=== PATIENT | female | born 1975 | race Caucasian/White ===

== ENCOUNTER 2019-12-06 11:22 | Outpatient (REF) | payer MEDICAID, SELFPAY | END 2019-12-06 11:23 | disposition home or self-care (01) | LOC: HO.LAB 11:22 | PROVIDERS: Visit Provider Internal Medicine | DX: Z20.828 Contact with and (suspected) exposure to other viral communicable diseases (principal) | CPT/HCPCS: U0003 ==

== ENCOUNTER 2019-12-17 13:25 | Outpatient (REF) | payer MEDICAID, SELFPAY | END 2019-12-17 13:26 | disposition home or self-care (01) | LOC: HO.LAB 13:25 | PROVIDERS: PCP Internal Medicine; Visit Provider Internal Medicine | DX: Z20.828 Contact with and (suspected) exposure to other viral communicable diseases (principal) | CPT/HCPCS: C9803; U0003 ==

== ENCOUNTER 2020-05-31 10:58 | Emergency (ER) | payer MEDICAID, SELFPAY ==
--- NOTE | ~2020-05-31 | US_ITS ---
EXAMINATION: RIGHT LOWER QUADRANT ULTRASOUND FOR APPENDIX CLINICAL INFORMATION: Cannot rule out appendicitis on CT scan earlier today. COMPARISON: CT of same day TECHNIQUE: Compression ultrasound study right lower quadrant FINDINGS: Targeted compression ultrasound of the right lower quadrant was performed. There is a large amount of overlying bowel present. The appendix was not identified. No definite blind ending noncompressible tubular structure was seen. There is small amount of free fluid seen adjacent to the right iliac vessels. US/US appendix IMPRESSION: Appendix not identified with large amount of bowel being present overlying this region. Small amount of free fluid seen adjacent to the iliac vessels and appendicitis still is not excluded.
--- NOTE | ~2020-05-31 | CT_ITS ---
EXAMINATION: CT ABDOMEN AND PELVIS WITHOUT CONTRAST CLINICAL INFORMATION: Flank pain. Question kidney stones. COMPARISON: September 02, 2007 TECHNIQUE: Multidetector volumetric imaging was performed from the superior aspect of the liver through the pubic symphysis. Sagittal and coronal reformatted images were obtained on the technologist's workstation. This CT examination was performed using dose optimization techniques as appropriate, variously including the following: *Automated exposure control *Adjustment of mA and/or kV according to patient size (this includes techniques or standardized protocols for targeted exams where dose is matched to indication/reason for exam; i.e. extremities or head) *Use of iterative reconstruction technique DLP: 401 mGy-cm FINDINGS: LUNG BASES: The visualized lung bases are unremarkable. No pleural or pericardial effusion. LIVER, GALLBLADDER, AND BILIARY TREE: The liver is normal in size, shape, and attenuation. No focal hepatic lesion or biliary ductal dilatation is present. Status post cholecystectomy. PANCREAS: Unremarkable. SPLEEN: Unremarkable. ADRENAL GLANDS: Unremarkable. KIDNEYS AND URETERS: The kidneys are normal in size, shape, and attenuation. No hydronephrosis, hydroureter, or calculi seen. No perinephric stranding. BLADDER: Unremarkable. GASTROINTESTINAL TRACT: No dilated loops of large or small bowel are evident. No free air. Minimal small amount of free pelvic fluid. No evidence of acute diverticulitis. No significant pericolonic inflammatory fat stranding is seen to suggest colitis. The distal aspect of the appendix is not visualized. And there is a small amount of fluid in the right lower quadrant tracking adjacent to the location of the appendix and right adnexa. There is a lack of intra-abdominal fat making differentiation of structures from one another difficult. ABDOMINAL WALL: No significant hernia is appreciated. LYMPH NODES: No lymphadenopathy appreciated. VASCULAR: Unremarkable. PELVIC VISCERA: Small amount of free fluid. No definite suspicious mass. OSSEOUS STRUCTURES: No suspicious destructive bony lesion identified. Single locule of gas is seen adjacent to the left facet joint at the L5-S1 level likely degenerative in nature. CT/CT abdomen pelvis wo con IMPRESSION: No evidence of obstructive uropathy. Distal aspect of the appendix is not visualized and it lies adjacent to the uterus and adnexal region where there is a small amount of fluid present. Acute appendicitis is not excluded versus possible adnexal fluid. Pelvic ultrasound may be of help in further evaluation.
--- NOTE | ~2020-05-31 | US_ITS ---
EXAMINATION: US PELVIS TRANSVAGINAL CLINICAL INFORMATION: Question Ovarian cyst rupture/torsion versus acute appendicitis COMPARISON: CT earlier today TECHNIQUE: Transcutaneous and transvaginal pelvic ultrasound. Transvaginal scanning was performed after voiding to better evaluate the endometrium and adnexa. FINDINGS: The uterus measures 7.7 x 5.0 x 5.4 cm. The uterus is anteverted. No suspicious abnormalities region of the cervix. The uterine contour is smooth. The endometrium measures 0.9 cm. No focal abnormalities within the myometrium. The right ovary measures approximately 2.4 x 1.2 x 1.1 cm. The calculated right ovarian volume is approximately 1.7 mL. No suspicious adnexal masses identified. There are a few tiny echogenic foci consistent with calcifications. There is free fluid seen surrounding the right ovary/adnexa. There is normal arterial and venous blood flow present. The left ovary measures 2.8 x 1.5 x 1.2 cm. The calculated left ovarian volume is approximately 2.6 mL. No suspicious left adnexal mass. There is normal arterial venous blood flow present. There is some small amount of free fluid seen surrounding the left ovary/adnexa. US/US transvaginal IMPRESSION: No evidence of ovarian torsion. No ovarian mass identified. Free fluid seen surrounding both ovaries/adnexa.
--- NOTE | ~2020-05-31 | US_ITS ---
EXAMINATION: US PELVIS TRANSVAGINAL CLINICAL INFORMATION: Question Ovarian cyst rupture/torsion versus acute appendicitis COMPARISON: CT earlier today TECHNIQUE: Transcutaneous and transvaginal pelvic ultrasound. Transvaginal scanning was performed after voiding to better evaluate the endometrium and adnexa. FINDINGS: The uterus measures 7.7 x 5.0 x 5.4 cm. The uterus is anteverted. No suspicious abnormalities region of the cervix. The uterine contour is smooth. The endometrium measures 0.9 cm. No focal abnormalities within the myometrium. The right ovary measures approximately 2.4 x 1.2 x 1.1 cm. The calculated right ovarian volume is approximately 1.7 mL. No suspicious adnexal masses identified. There are a few tiny echogenic foci consistent with calcifications. There is free fluid seen surrounding the right ovary/adnexa. There is normal arterial and venous blood flow present. The left ovary measures 2.8 x 1.5 x 1.2 cm. The calculated left ovarian volume is approximately 2.6 mL. No suspicious left adnexal mass. There is normal arterial venous blood flow present. There is some small amount of free fluid seen surrounding the left ovary/adnexa. US/US pelvic ovarian doppler IMPRESSION: No evidence of ovarian torsion. No ovarian mass identified. Free fluid seen surrounding both ovaries/adnexa.
--- NOTE | ~2020-05-31 | US_ITS ---
EXAMINATION: US PELVIS TRANSVAGINAL CLINICAL INFORMATION: Question Ovarian cyst rupture/torsion versus acute appendicitis COMPARISON: CT earlier today TECHNIQUE: Transcutaneous and transvaginal pelvic ultrasound. Transvaginal scanning was performed after voiding to better evaluate the endometrium and adnexa. FINDINGS: The uterus measures 7.7 x 5.0 x 5.4 cm. The uterus is anteverted. No suspicious abnormalities region of the cervix. The uterine contour is smooth. The endometrium measures 0.9 cm. No focal abnormalities within the myometrium. The right ovary measures approximately 2.4 x 1.2 x 1.1 cm. The calculated right ovarian volume is approximately 1.7 mL. No suspicious adnexal masses identified. There are a few tiny echogenic foci consistent with calcifications. There is free fluid seen surrounding the right ovary/adnexa. There is normal arterial and venous blood flow present. The left ovary measures 2.8 x 1.5 x 1.2 cm. The calculated left ovarian volume is approximately 2.6 mL. No suspicious left adnexal mass. There is normal arterial venous blood flow present. There is some small amount of free fluid seen surrounding the left ovary/adnexa. US/US pelvic complete IMPRESSION: No evidence of ovarian torsion. No ovarian mass identified. Free fluid seen surrounding both ovaries/adnexa.
[2020-05-31 11:08] VITALS: BP 136/78; PULSE 78; RESP 18; TEMP 36.8; O2SAT 98; BMI 22.3
--- NOTE | 2020-05-31 11:34 | ED_ITS ---
HPI - Female Genitourinary General Chief complaint: Urogenital-Female Stated complaint: kidney infection Time Seen by Provider: 05/31/20 12:04 Source: patient Mode of arrival: ambulatory Limitations: no limitations History of Present Illness HPI Narrative: Patient presents to ED suprapubic pain, and dysuria . . Patient denies any nausea, vomiting, vaginal bleeding, or severe abdominal pain. Patient states she no longer having her menstruation. 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 Patient is currently going to treatment for cervical cancer. Patient received radiation and chemo. MD elicited complaint: dysuria and UTI Related Data Previous Rx's Medication Instructions Recorded cefpodoxime 100 mg PO Q12H 7 Days #14 tab 05/31/20 naproxen 500 mg PO BID PRN #20 tab 05/31/20 Allergies Allergy/AdvReac Type Severity Reaction Status Date / Time guaifenesin [GUAIFENESIN] Allergy Intermediate HIVES Unverified 10/24/19 15:04 metaproterenol [From Alupent] Allergy Mild PALPITATIONS, Unverified 10/24/19 15:04 RASH N.K.D.A. Allergy Unknown Uncoded 01/02/19 00:00 Review of Systems Review of Systems: Yes all other systems are reviewed and are negative Constitutional: Constitutional: Reports as per HPI, Reports no additional constitutional complaints and Denies fever(s) Eyes: Eyes: Reports as per HPI and Reports no additional eye complaints ENT: Reports system reviewed and no additional complaints, except as documented and Reports as per HPI Cardiovascular: Cardiovascular: Reports as per HPI and Reports no additional cardiovascular complaints Respiratory: Respiratory: Reports as per HPI and Reports no additional respiratory complaints Gastrointestinal: Gastrointestinal: Reports as per HPI, Reports no additional gastrointestinal complaints and Reports abdominal pain (Suprapubic) Genitourinary: Genitourinary: Reports no additional female genitourinary complaints, Reports as per HPI, Reports difficulty voiding and Reports dysuria Musculoskeletal: Musculoskeletal: Reports no additional musculoskeletal complaints and Reports as per HPI Neurologic: Reports system reviewed and no additional complaints, except as documented and Reports as per HPI Psychiatric: Psychiatric: Reports no additional psychiatric complaints and Reports as per HPI PMFSH Past Medical History Medical History (Updated 05/31/20 @ 17:21 by HOOD Yoder) Cervical cancer Cholecystectomy planned Radiation cystitis Surgical History (Updated 05/31/20 @ 11:10 by Mary Butts) Tubal ligation status Social History Social History Smoking Status: Light tobacco smoker Use of substances other than those prescribed or required for medical reasons: No Advance Directives: No Advance Directives Information Provided: No Physical Exam Vital Signs: Vital Signs: Last Vital Signs Temp 98.3 F 05/31/20 11:08 Pulse 75 05/31/20 14:16 Resp 16 05/31/20 14:16 BP 134/80 05/31/20 14:16 Pulse Ox 100 05/31/20 14:16 Body Mass Index 22.3 Const: General: cooperative, healthy appearing, comfortable, no acute distress, well developed, alert, awake and Physically active Orientation/consciousness: patient oriented x3 HENMT: Head: Yes normal to inspection, Yes No palpable skull fracture present, Yes normocephalic and Yes atraumatic Eyes: General: appearance normal, both eyes and all related structures Neck: Neck: Yes normal visual inspection, Yes full ROM, Yes no lymphadenopathy, Yes no meningeal signs, Yes trachea midline, Yes supple and No tender Chest: Chest palpation & inspection: normal inspection of the chest and normal palpation of entire chest wall Resp: Effort & Inspection: normal respiratory effort and able to speak in complete sentences Auscultation: clear to auscultation bilaterally Cardio: Jugular venous distension: no JVD Heart sounds: S1 normal heart sound present and S2 normal heart sound present GI: Inspection: Yes normal to inspection and No abdominal wall ecchymosis Palpation (GI): Soft to palpation, not firm, Tenderness to palpation present (GI) suprapubicly; not in the epigastrum, not in the LLQ, not in the RLQ, not in the LUQ, not in the RUQ, not at McBurney's point, not periumbilically, Angela's sign negative, obturator sign negative, psoas sign negative, with no rebound tenderness and Rovsing's sign negative, no guarding and not rigid : General: No CVA tenderness Back/Spine/Pelvis: Back: no CVA tenderness, No CVA tenderness and No back tenderness Skin: General skin exam: no rashes or lesions noted and elasticity normal Neuro: General: patient oriented x3, gait normal, no meningeal signs and CN's II-XI intact bilaterally Cranial nerves: Yes CN's II-XII intact bilaterally Extrem: General: Yes normal to inspection and Yes full ROM Psych: Appearance: grossly normal, well kempt and not disheveled Course Course Course Narrative: Patient vital signs stable. But due to patient's history of cancer will do labs fluids and was sent for UA. Reevaluation(s) Reevaluation #1: Patient given Toradol morphine for pain. CT scan showed fluid in the adnexa, but said not able to exclude appendicitis and stated appendix not visualized. Recommended pelvic ultrasound. Reevaluation #2: Pelvic ultrasound came back which showed bilateral pelvic free fluid, but negative for any adnexal mass/cyst. Patient states she had similar presentation in February with radioactive cystitis where urine was negative for bacteria, only had blood, but then the urine grew back strain culture requires antibiotics. Appendix ultrasound states appendix not visualized. Patient was re-evaluated and abdominal exam negative for any right lower quadrant tenderness, rebound tenderness, McBurney sign, Rovsing sign, obturator sign, or psoas sign. Patient has slight tenderness in right suprapubic area and complained of dysuria/pressure when urinating. Unlikely patient having appendicitis. Pelvic exam was offered to rule out PID/STI, but patient refused and prefer follow-up with her PCP. Patient states she had similiar presentations in the past ( including this past february at [facility]) where her UA was negative for obvious UTI, but UA culture grew bacteria that required antibiotics. patient states history of radiation cysystitis and proctotits. Spoke with supervising attendant Dr. Brown and he was inforemd of history, physical exam and diagnostics and recommended to treat patient as UTI and give antibiotics. He also recommend given patient appendicits instructions. Patient explained appendicitis symptoms/and given instructions concerning appendicitis. Patient given copy of labs and imaging to follow up with her PCP tomorrow. Patient is hemodynamically stable. MDM - Female Genitourinary MDM Narrative Medical decision making narrative: UTI. Pelvic pain Lab Data Result diagrams: 05/31/20 12:05/31/20 12:01 Labs: Lab Results 05/31/20 05/31/20 05/31/20 Range/Units 12:01 12:01 12:01 WBC 4.3 L (4.8-10.8) X10*3/uL RBC 3.53 L (4.20-5.50) X10*6/uL Hgb 11.4 L (12.0-16.0) g/dl Hct 34.3 L (37-47) % MCV 97.2 (80-98) fL MCH 32.3 (27.0-33.0) pg MCHC 33.2 (31.0-35.0) g/dl RDW 14.6 (11.0-16.0) % Plt Count 201 (160-400) X10*3/uL MPV 8.9 L (9.4-12.3) fL Immature Gran % (Auto) 0.2 (0.0-0.4) % Neut % (Auto) 71.2 (45-73) % Lymph % (Auto) 15.7 L (20-40) % Harper % (Auto) 11.3 H (2-11) % Eos % (Auto) 1.4 (0-4) % Baso % (Auto) 0.2 (0-2) % Lymph # (Auto) 0.7 L (1.2-4.9) X10*3/uL Harper # (Auto) 0.5 (0.1-1.2) X10*3/uL Eos # (Auto) 0.1 (0.0-0.4) X10*3/uL Baso # (Auto) 0.0 (0.0-0.2) X10*3/uL Abs Immat Gran (auto) 0.01 (0.00-0.03) X10*3/uL Absolute Neuts (auto) 3.0 (2.0-8.3) X10*3/uL Absolute Nucleated RBC 0.000 (0.0-0.012) X10*3/uL Nucleated RBC % (auto) 0.0 (0.0-0.2) /100WBC Smear Tech's Comments VERIFIED PT 11.8 (10.8-13.0) SEC INR 1.0 (0.9-1.1) APTT 31.8 (24.1-38.0) SEC Sodium 140 (135-145) mmol/L Potassium 3.9 (3.3-5.1) mmol/L Chloride 107 (96-108) mmol/L Carbon Dioxide 24 (22-29) mmol/L Anion Gap 13 (12-20) BUN 7 L (9-16) mg/dL Creatinine 0.68 (0.5-1.4) mg/dL Estim Creat Clear Calc 85.5 Estimated GFR > 60 Random Glucose 105 (60-115) mg/dL Calcium 8.4 (8.4-10.2) mg/dL Total Bilirubin < 0.2 (0.0-1.0) mg/dL AST 11 (5-31) U/L ALT < 6 (0-31) U/L Alkaline Phosphatase 49 (39-117) U/L Total Protein 6.3 L (6.5-8.0) g/dL Albumin 3.6 (3.5-5.0) g/dL Urine Color Urine Appearance Urine pH (5.0-8.0) Ur Specific Huntly (1.005-1.025) Urine Protein (NEG-TRACE) MG/DL Urine Glucose (UA) (NEG) MG/DL Urine Ketones (NEG) MG/DL Urine Blood (NEG) Urine Nitrite (NEG) Ur Leukocyte Esterase (NEG) Urine RBC (0) /HPF Urine WBC (0-4) /HPF Ur Squamous Epith Cells /LPF Urine Bacteria /LPF Urine Mucus /LPF Urine Test (NEGATIVE) 05/31/20 05/31/20 Range/Units 12:01 12:01 WBC (4.8-10.8) X10*3/uL RBC (4.20-5.50) X10*6/uL Hgb (12.0-16.0) g/dl Hct (37-47) % MCV (80-98) fL MCH (27.0-33.0) pg MCHC (31.0-35.0) g/dl RDW (11.0-16.0) % Plt Count (160-400) X10*3/uL MPV (9.4-12.3) fL Immature Gran % (Auto) (0.0-0.4) % Neut % (Auto) (45-73) % Lymph % (Auto) (20-40) % Harper % (Auto) (2-11) % Eos % (Auto) (0-4) % Baso % (Auto) (0-2) % Lymph # (Auto) (1.2-4.9) X10*3/uL Harper # (Auto) (0.1-1.2) X10*3/uL Eos # (Auto) (0.0-0.4) X10*3/uL Baso # (Auto) (0.0-0.2) X10*3/uL Abs Immat Gran (auto) (0.00-0.03) X10*3/uL Absolute Neuts (auto) (2.0-8.3) X10*3/uL Absolute Nucleated RBC (0.0-0.012) X10*3/uL Nucleated RBC % (auto) (0.0-0.2) /100WBC Smear Tech's Comments PT (10.8-13.0) SEC INR (0.9-1.1) APTT (24.1-38.0) SEC Sodium (135-145) mmol/L Potassium (3.3-5.1) mmol/L Chloride (96-108) mmol/L Carbon Dioxide (22-29) mmol/L Anion Gap (12-20) BUN (9-16) mg/dL Creatinine (0.5-1.4) mg/dL Estim Creat Clear Calc Estimated GFR Random Glucose (60-115) mg/dL Calcium (8.4-10.2) mg/dL Total Bilirubin (0.0-1.0) mg/dL AST (5-31) U/L ALT (0-31) U/L Alkaline Phosphatase (39-117) U/L Total Protein (6.5-8.0) g/dL Albumin (3.5-5.0) g/dL Urine Color YELLOW Urine Appearance HAZY Urine pH 5.5 (5.0-8.0) Ur Specific Huntly >= 1.030 H (1.005-1.025) Urine Protein TRACE (NEG-TRACE) MG/DL Urine Glucose (UA) NEG (NEG) MG/DL Urine Ketones NEG (NEG) MG/DL Urine Blood 2+ H (NEG) Urine Nitrite NEG (NEG) Ur Leukocyte Esterase NEG (NEG) Urine RBC 5-9 H (0) /HPF Urine WBC 1-4 (0-4) /HPF Ur Squamous Epith Cells 1+ /LPF Urine Bacteria NONE /LPF Urine Mucus TRACE /LPF Urine Test NEGATIVE (NEGATIVE) Discharge Plan Discharge Clinical Impression: Urinary tract infection, Pelvic pain Patient Disposition: Home, Self-Care Instructions: Urinary Tract Infection in Women (ED), Pelvic Pain (ED) Additional Instructions: Return to the ED for any gross blood in the urine, flank pain, fever, chills, nausea, vomiting, decreased appetite, right lower quadrant pain, umbilical pain, weakness, dizziness, left lower quadrant abdominal pain radiating to the right side, or any other concerning symptoms. Prescriptions: New cefpodoxime 100 mg tablet 100 mg PO Q12H 7 Days Qty: 14 RF: 0 naproxen 500 mg tablet 500 mg PO BID PRN (Reason: pain) Qty: 20 RF: 0 Referrals: Edmundo Burnham MD [Primary Care Provider] - 2 days (UTI. Pelvic pain) Print Language: Australian
[2020-05-31] MEDS: 0.9 % Sodium Chloride 1,000 ML 999 ML IV (12:02)
[2020-05-31 12:08] LABS: Basophils Percent Auto 0.2 % (0-2); Eosinophils Absolute Auto 0.1 X10*3/uL (0.0-0.4); Eosinophils Percent Auto 1.4 % (0-4); Hematocrit 34.3 % (37-47); Hemoglobin 11.4 g/dl (12.0-16.0); Imm Gran Abs Auto 0.01 X10*3/uL (0.00-0.03); Imm Gran Pct Auto 0.2 % (0.0-0.4); Lymphocytes Absolute Auto 0.7 X10*3/uL (1.2-4.9); Lymphocytes Percent Auto 15.7 % (20-40); MANUAL DIFF FLAG SCAN; Mean Corpuscular HGB Conc 33.2 g/dl (31.0-35.0); Mean Corpuscular Hemoglobin 32.3 pg (27.0-33.0); Mean Corpuscular Volume 97.2 fL (80-98); Mean Platelet Volume 8.9 fL (9.4-12.3); Monocytes Absolute Auto 0.5 X10*3/uL (0.1-1.2); Monocytes Percent Auto 11.3 % (2-11); Neutrophils Percent Auto 71.2 % (45-73); Platelet Count 201 X10*3/uL (160-400); Red Blood Count 3.53 X10*6/uL (4.20-5.50); Red Cell Distribution Width 14.6 % (11.0-16.0); SCAN SMEAR FLAG 1; White Blood Count 4.3 X10*3/uL (4.8-10.8)
[2020-05-31 12:09] LABS: Glucose Urine UA NEG (NEG); Leukocyte Esterase Urine NEG (NEG); Nitrite Urine NEG (NEG); PH 5.5 (5.0-8.0); Specific Gravity - Urine >= 1.030 (1.005-1.025); Urine Blood 2+ (NEG); Urine Ketones NEG (NEG); Urine Protein TRACE MG/DL (NEG-TRACE)
[2020-05-31 12:10] LABS: Appearance Urine HAZY; Color Urine YELLOW
[2020-05-31 12:11] LABS: UPreg QC Valid YES; Urine Pregnancy NEGATIVE (NEGATIVE)
[2020-05-31 12:16] LABS: Prothrombin Time 11.8 SEC (10.8-13.0)
[2020-05-31 12:18] LABS: Partial Thromboplastin Time 31.8 SEC (24.1-38.0)
[2020-05-31] MEDS: Ketorolac Tromethamine 30 MG/ML VIAL IVPUSH (12:23)
[2020-05-31 12:25] LABS: Mucus Urine TRACE /LPF; Squamous Epithelial Cell Urine 1+ /LPF
[2020-05-31 12:36] LABS: Alanine Aminotransferase < 6 U/L (0-31); Albumin Level 3.6 g/dL (3.5-5.0); Alkaline Phosphatase 49 U/L (39-117); Anion Gap 13 (12-20); Aspartate Amino Transferase 11 U/L (5-31); Bilirubin Total < 0.2 mg/dL (0.0-1.0); Blood Urea Nitrogen 7 mg/dL (9-16); Calcium 8.4 mg/dL (8.4-10.2); Carbon Dioxide 24 mmol/L (22-29); Chloride 107 mmol/L (96-108); Creatinine Clr Calc Pharmacy 85.5; Estimated Glomerular Filt Rate > 60; Glucose Random 105 mg/dL (60-115); Potassium 3.9 mmol/L (3.3-5.1); Sodium 140 mmol/L (135-145); Total Protein 6.3 g/dL (6.5-8.0)
[2020-05-31 12:47] LABS: SLIDE REVIEW VERIFIED
--- NOTE | 2020-05-31 12:55 | PC.NURSE ---
PT TO CT SCAN. MEDICATED FOR PAIN WITH TORADOL.
[2020-05-31 14:16] VITALS: BP 134/80; PULSE 75; RESP 16; O2SAT 100
[2020-05-31] MEDS: Morphine Sulfate 2 MG/ML CARTRIDGE IVPUSH (14:50)
== END 2020-05-31 18:30 | disposition home or self-care (01) ==
PROVIDERS: Physician Assistant; Emergency Provider Emergency Medicine Emergency Medical Services; PCP Internal Medicine
DX: N39.0 Urinary tract infection, site not specified (principal); R10.2 Pelvic and perineal pain; Z85.41 Personal history of malignant neoplasm of cervix uteri; F17.210 Nicotine dependence, cigarettes, uncomplicated
CPT/HCPCS: 36415; 74176; 76705; 76830; 76856; 80053; 81001; 81025; 85025; 85610; 85730; 93975; 96361; 96374; 96375; 99284; J1885; J2270

== ENCOUNTER 2020-06-25 11:21 | Outpatient (REF) | payer MEDICAID, SELFPAY ==
[2020-06-25 11:42] LABS: COVID-19 Test Negative (Negative); IDNOW Serial# 55D5AD1C
== END 2020-06-25 11:22 | disposition home or self-care (01) ==
LOC: HO.LAB 11:21
PROVIDERS: Visit Provider Internal Medicine
DX: Z20.822 Contact with and (suspected) exposure to COVID-19 (principal)
CPT/HCPCS: 36415; 87635; C9803

== ENCOUNTER 2020-09-09 09:33 | Inpatient (IN) | payer MEDICAID, SELFPAY ==
[2020-09-09] VITALS (13 sets, daily range): BP systolic 112–145; BP diastolic 58–87; PULSE 80–104; RESP 16–20; TEMP 36.5–37.9; O2SAT 94–100; BMI 21.7
--- NOTE | ~2020-09-09 | CT_ITS ---
EXAMINATION: CT ABDOMEN AND PELVIS WITH CONTRAST CLINICAL INFORMATION: Lower abdominal pain, nausea and diarrhea. Bloody. Recent colitis. COMPARISON: Previous CT of the abdomen and pelvis May 2020 TECHNIQUE: Multidetector volumetric images were obtained from the superior aspect of the liver through the pubic symphysis following administration 85 mL of Omnipaque 350 intravenous contrast. Sagittal and coronal reformatted images were obtained on the technologist's workstation. Oral contrast: Yes This CT examination was performed using dose optimization techniques as appropriate, variously including the following: *Automated exposure control *Adjustment of mA and/or kV according to patient size (this includes techniques or standardized protocols for targeted exams where dose is matched to indication/reason for exam; i.e. extremities or head) *Use of iterative reconstruction technique DLP: 381 mGy-cm FINDINGS: LUNG BASES: The visualized lung bases are unremarkable. LIVER, GALLBLADDER, AND BILIARY TREE: The liver is normal in size, shape, and attenuation. No focal hepatic lesion or biliary ductal dilatation is present. The gallbladder has been removed. PANCREAS: Unremarkable. SPLEEN: Unremarkable. ADRENAL GLANDS: Unremarkable. KIDNEYS AND URETERS: The kidneys are normal in size, shape, and attenuation. No hydronephrosis, hydroureter, or calculi seen. No perinephric stranding. BLADDER: Unremarkable. GASTROINTESTINAL TRACT: There is wall thickening of the colon suggestive of pancolitis. There is also wall thickening of the terminal ileum. There is mild dilatation of the distal small and proximal large bowel. The appendix is normal appearing. There is a small amount of ascites. ABDOMINAL WALL: No significant hernia is appreciated. LYMPH NODES: Normal. VASCULAR: Unremarkable. PELVIC VISCERA: Unremarkable. OSSEOUS STRUCTURES: Unremarkable. CT/CT abdomen pelvis w con IMPRESSION: Pancolitis and ileitis of the distal small bowel. There is mild dilatation of the distal small and proximal large bowel. Small amount of ascites.
[2020-09-09 11:10] LABS: MANUAL DIFF FLAG NO
--- NOTE | 2020-09-09 11:11 | ED_ITS ---
HPI - Abdominal Pain General Chief Complaint: Abdominal Pain <HOOD Wright Last Filed: 09/09/20 15:08> Stated Complaint: ABD PAIN <HOOD Wright Last Filed: 09/09/20 15:08> Time Seen by Provider: 09/09/20 09:58 <HOOD Wright Last Filed: 09/09/20 15:08> Source: patient <HOOD Wright Last Filed: 09/09/20 15:08> Mode of arrival: ambulatory <HOOD Wright Last Filed: 09/09/20 15:08> History of Present Illness HPI narrative: 44-year-old female with a past medical history of cervical cancer s/p chemo/radiation, radiation cystitis/proctocolitis, s/p cholecystectomy, recently diagnosed with colitis on 08/25 at [facility], finished course of Flagyl/Cipro, presenting to the ED complaining of continued/worsening lower abdominal pain, bloating, nausea, and blood streaked mucousy diarrhea x2 days. Denies fever, chills, vomiting, dysuria/hematuria <HOOD Wright Last Filed: 09/09/20 15:08> MD elicited complaint: abdominal pain <HOOD Wright Last Filed: 09/09/20 15:08> Related Data Home Medications: Home Medications Medication Instructions Recorded Confirmed clonazepam 0.5 mg tablet 1 tab PO BID 09/09/20 09/09/20 norgestimate 0.25 mg-ethinyl 1 tab PO DAILY 09/09/20 09/09/20 estradiol 35 mcg tablet (Estarylla) oxycodone 5 mg tablet 1 tab PO Q8H PRN 09/09/20 09/09/20 zolpidem 12.5 mg tablet,extended 1 tab PO BEDTIME 09/09/20 09/09/20 release,multiphase <HOOD Wright Last Filed: 09/09/20 15:08> Allergies/Adverse Reactions: Allergies Allergy/AdvReac Type Severity Reaction Status Date / Time guaifenesin [GUAIFENESIN] Allergy Intermediate HIVES Verified 09/10/20 06:42 metaproterenol [From Alupent] Allergy Mild PALPITATIONS, Verified 09/10/20 06:42 RASH <HOOD Wright - Last Filed: 09/09/20 15:08> Review of Systems Review of Systems Constitutional: No Fever, No Chills, No Fatigue, No Malaise Cardiovascular: No Chest Pain, No SOB, No Palpitations Respiratory: No Cough, No Dyspnea Gastrointestinal: + Nausea, No Vomiting, + Diarrhea, No Constipation, + Abdominal pain, + Hematochezia, No Melena Genitourinary: No Dysuria, No Urinary Frequency, No Hematuria, No Flank Pain Musculoskeletal: No joint pain, No Myalgias, No Joint Swelling Skin: No Skin Lesions, No rash Neuro: No Weakness, No Numbness, No Headache <HOOD Wright Last Filed: 09/09/20 15:08> Yes all other systems are reviewed and are negative <HOOD Wright - Last Filed: 09/09/20 15:08> Physical Exam Vital Signs: Vital Signs: Last Vital Signs Temp 99.1 F 09/11/20 19:23 Pulse 93 09/11/20 19:23 Resp 18 09/11/20 19:23 BP 145/72 H 09/11/20 19:23 Pulse Ox 97 09/11/20 19:23 Body Mass Index 21.7 <HOOD Wright Last Filed: 09/09/20 15:08> Vital Signs: Last Vital Signs Temp 99.1 F 09/11/20 19:23 Pulse 93 09/11/20 19:23 Resp 18 09/11/20 19:23 BP 145/72 H 09/11/20 19:23 Pulse Ox 97 09/11/20 19:23 Body Mass Index 21.7 <Steve Mccartney MD - Last Filed: 09/23/20 15:45> Const: General: cooperative, alert and awake <HOOD Wright Last Filed: 09/09/20 15:08> Orientation/consciousness: patient oriented x3 <HOOD Wright Last Filed: 09/09/20 15:08> Limitations: no limitations <HOOD Wright Last Filed: 09/09/20 15:08> HENMT: Head: Yes normal to inspection <HOOD Wright Last Filed: 09/09/20 15:08> Ears: hearing grossly normal bilaterally <Libertad Tamayo, [facility] Last Filed: 09/09/20 15:08> General nose exam: Normal external nose present <Libertad Belkis [facility] Last Filed: 09/09/20 15:08> Face and sinus: Yes normal facial exam <Libertad Pickettnorma [facility] Last Filed: 09/09/20 15:08> Eyes: General: appearance normal, both eyes and all related structures <Libertad Belkis [facility] - Last Filed: 09/09/20 15:08> EOM: EOMs intact bilaterally <Libertad Pickettoste, [place] - Last Filed: 09/09/20 15:08> Neck: Neck: Yes normal visual inspection <Libertad Belkis [facility] - Last Filed: 09/09/20 15:08> Resp: Effort & Inspection: normal respiratory effort and no respiratory distress <Libertad Pickettnorma [facility] Last Filed: 09/09/20 15:08> Cardio: Rate: regular rate <Libertad Belkis [facility] - Last Filed: 09/09/20 15:08> GI: Inspection: Yes normal to inspection <Libertad Belkis [facility] Last Filed: 09/09/20 15:08> Palpation (GI): Soft to palpation, Tenderness to palpation present (GI) (Lower abdominal ttp >LLQ), no guarding and not rigid <Libertad Belkis [facility] Last Filed: 09/09/20 15:08> : General: Yes no CVA tenderness <Libertad Belkis [facility] Last Filed: 09/09/20 15:08> Back/Spine/Pelvis: Back: no CVA tenderness <Libertad Belkis [facility] - Last Filed: 09/09/20 15:08> Skin: Rashes: no rashes <Libertad Belkis [facility] Last Filed: 09/09/20 15:08> Wounds: no wounds <Libertad Belkis [facility] - Last Filed: 09/09/20 15:08> Neuro: General: patient oriented x3 <Libertad Belkis [facility] Last Filed: 09/09/20 15:08> Gait exam (Neuro): Normal gait present <Libertadjane Tamayo [facility] - Last Filed: 09/09/20 15:08> Extrem: General: Yes normal to inspection <HOOD Wright - Last Filed: 09/09/20 15:08> Course Course Course Narrative: Received records from [facility] from 08/25/2020 :labs were unremarkable however CT abdomen pelvis showed small bowel thickening and fluid filled loops of small bowel most likely representing enteritis though mild early small-bowel obstruction could not be excluded. Patient was evaluated in their ED by surgical PA who did not believe symptoms are consistent with SBO. Patient preferred discharge rather than admission at that time. -occult stool positive CT abdomen pelvis w con IMPRESSION: Pancolitis and ileitis of the distal small bowel. There is mild dilatation of the distal small and proximal large bowel. Small amount of ascites. >> surgery consulted -no leukocytosis, labs otherwise unremarkable, lactic negative -UA with RBCs/not infected. Case discussed with surgery, not surgical case, medical issue, patient may need GI consult. Plan to admit for further management. IV Zosyn ordered. -1423--patient spiked low-grade temp. Blood cultures added <HOOD Wright - Last Filed: 09/09/20 15:08> MDM - Abdominal Pain MDM Narrative Medical decision making narrative: 44-year-old female with a past medical history of cervical cancer s/p chemo/radiation, radiation cystitis/proctocolitis, s/p cholecystectomy, recently diagnosed with colitis on 08/25 at [facility], finished course of Flagyl/Cipro, presenting to the ED complaining of continued/worsening lower abdominal pain, bloating, nausea, and blood streaked mucousy diarrhea x2 days. On exam VSS, appears in pain, abdomen soft with diffuse lower ttp> LLQ, no CVAT. Concern for diverticulitis/persistent or complicated colitis vs ?appendicitis vs SBO vs infectious diarrhea Plan: Labs, UA, CT AP, IVF, symptomatic treatment, reassess <HOOD Wright - Last Filed: 09/09/20 15:08> Medical Records Attestation: I reviewed the patient's medical records. <HOOD Wright - Last Filed: 09/09/20 15:08> Lab Data Attestation: I reviewed the patient's lab results. <HOOD Wright Last Filed: 09/09/20 15:08> Result diagrams: : 09/11/20 06:10 09/12/20 06:15 <HOOD Wright - Last Filed: 09/09/20 15:08> Labs: Lab Results 09/09/20 09/09/20 09/09/20 Range/Units 11:01 11:01 11:01 WBC 8.9 (4.8-10.8) X10*3/uL RBC 3.77 L (4.20-5.50) X10*6/uL Hgb 12.4 (12.0-16.0) g/dl Hct 36.6 L (37-47) % MCV 97.1 (80-98) fL MCH 32.9 (27.0-33.0) pg MCHC 33.9 (31.0-35.0) g/dl RDW 13.0 (11.0-16.0) % Plt Count 225 (160-400) X10*3/uL MPV 8.6 L (9.4-12.3) fL Immature Gran % (Auto) 0.4 (0.0-0.4) % Neut % (Auto) 82.4 H (45-73) % Lymph % (Auto) 9.4 L (20-40) % [place] % (Auto) 6.9 (2-11) % Eos % (Auto) 0.7 (0-4) % Baso % (Auto) 0.2 (0-2) % Lymph # (Auto) 0.8 L (1.2-4.9) X10*3/uL [place] # (Auto) 0.6 (0.1-1.2) X10*3/uL Eos # (Auto) 0.1 (0.0-0.4) X10*3/uL Baso # (Auto) 0.0 (0.0-0.2) X10*3/uL Abs Immat Gran (auto) 0.04 H (0.00-0.03) X10*3/uL Absolute Neuts (auto) 7.4 (2.0-8.3) X10*3/uL Absolute Nucleated RBC 0.000 (0.0-0.012) X10*3/uL Nucleated RBC % (auto) 0.0 (0.0-0.2) /100WBC Sodium 141 (135-145) mmol/L Potassium 3.4 (3.3-5.1) mmol/L Chloride 106 (96-108) mmol/L Carbon Dioxide 27 (22-29) mmol/L Anion Gap 11 L (12-20) BUN 6 L (9-16) mg/dL Creatinine 0.71 (0.5-1.4) mg/dL Estim Creat Clear Calc 78.3 Estimated GFR > 60 Random Glucose 98 (60-115) mg/dL Lactic Acid 0.6 (0.5-2.0) mmol/L Calcium 8.7 (8.4-10.2) mg/dL Magnesium (1.6-2.6) mg/dL Total Bilirubin 0.7 (0.0-1.0) mg/dL Direct Bilirubin 0.3 (0.0-0.5) mg/dL AST 14 (5-31) U/L ALT 14 (0-31) U/L Alkaline Phosphatase 54 (39-117) U/L Total Protein 6.5 (6.5-8.0) g/dL Albumin 4.0 (3.5-5.0) g/dL Lipase (8-78) U/L Urine Color Urine Appearance Urine pH (5.0-8.0) Ur Specific [place] (1.005-1.025) Urine Protein (NEG-TRACE) MG/DL Urine Glucose (UA) (NEG) MG/DL Urine Ketones (NEG) MG/DL Urine Blood (NEG) Urine Nitrite (NEG) Ur Leukocyte Esterase (NEG) Urine RBC (0) /HPF Urine WBC (0-4) /HPF Ur Squamous Epith Cells /LPF Urine Bacteria /LPF Urine Test (NEGATIVE) Stool Occult Blood (NEGATIVE) 09/09/20 09/09/20 09/09/20 Range/Units 11:01 11:01 11:01 WBC (4.8-10.8) X10*3/uL RBC (4.20-5.50) X10*6/uL Hgb (12.0-16.0) g/dl Hct (37-47) % MCV (80-98) fL MCH (27.0-33.0) pg MCHC (31.0-35.0) g/dl RDW (11.0-16.0) % Plt Count (160-400) X10*3/uL MPV (9.4-12.3) fL Immature Gran % (Auto) (0.0-0.4) % Neut % (Auto) (45-73) % Lymph % (Auto) (20-40) % [place] % (Auto) (2-11) % Eos % (Auto) (0-4) % Baso % (Auto) (0-2) % Lymph # (Auto) (1.2-4.9) X10*3/uL [place] # (Auto) (0.1-1.2) X10*3/uL Eos # (Auto) (0.0-0.4) X10*3/uL Baso # (Auto) (0.0-0.2) X10*3/uL Abs Immat Gran (auto) (0.00-0.03) X10*3/uL Absolute Neuts (auto) (2.0-8.3) X10*3/uL Absolute Nucleated RBC (0.0-0.012) X10*3/uL Nucleated RBC % (auto) (0.0-0.2) /100WBC Sodium (135-145) mmol/L Potassium (3.3-5.1) mmol/L Chloride (96-108) mmol/L Carbon Dioxide (22-29) mmol/L Anion Gap (12-20) BUN (9-16) mg/dL Creatinine (0.5-1.4) mg/dL Estim Creat Clear Calc Estimated GFR Random Glucose (60-115) mg/dL Lactic Acid (0.5-2.0) mmol/L Calcium (8.4-10.2) mg/dL Magnesium 1.9 (1.6-2.6) mg/dL Total Bilirubin (0.0-1.0) mg/dL Direct Bilirubin (0.0-0.5) mg/dL AST (5-31) U/L ALT (0-31) U/L Alkaline Phosphatase (39-117) U/L Total Protein (6.5-8.0) g/dL Albumin (3.5-5.0) g/dL Lipase 5 L (8-78) U/L Urine Color YELLOW Urine Appearance HAZY Urine pH 6.0 (5.0-8.0) Ur Specific [place] 1.020 (1.005-1.025) Urine Protein TRACE (NEG-TRACE) MG/DL Urine Glucose (UA) NEG (NEG) MG/DL Urine Ketones NEG (NEG) MG/DL Urine Blood 2+ H (NEG) Urine Nitrite NEG (NEG) Ur Leukocyte Esterase NEG (NEG) Urine RBC 5-9 H (0) /HPF Urine WBC 0-2 (0-4) /HPF Ur Squamous Epith Cells 1+ /LPF Urine Bacteria TRACE /LPF Urine Test NEGATIVE (NEGATIVE) Stool Occult Blood (NEGATIVE) 09/09/20 Range/Units 11:05 WBC (4.8-10.8) X10*3/uL RBC (4.20-5.50) X10*6/uL Hgb (12.0-16.0) g/dl Hct (37-47) % MCV (80-98) fL MCH (27.0-33.0) pg MCHC (31.0-35.0) g/dl RDW (11.0-16.0) % Plt Count (160-400) X10*3/uL MPV (9.4-12.3) fL Immature Gran % (Auto) (0.0-0.4) % Neut % (Auto) (45-73) % Lymph % (Auto) (20-40) % [place] % (Auto) (2-11) % Eos % (Auto) (0-4) % Baso % (Auto) (0-2) % Lymph # (Auto) (1.2-4.9) X10*3/uL [place] # (Auto) (0.1-1.2) X10*3/uL Eos # (Auto) (0.0-0.4) X10*3/uL Baso # (Auto) (0.0-0.2) X10*3/uL Abs Immat Gran (auto) (0.00-0.03) X10*3/uL Absolute Neuts (auto) (2.0-8.3) X10*3/uL Absolute Nucleated RBC (0.0-0.012) X10*3/uL Nucleated RBC % (auto) (0.0-0.2) /100WBC Sodium (135-145) mmol/L Potassium (3.3-5.1) mmol/L Chloride (96-108) mmol/L Carbon Dioxide (22-29) mmol/L Anion Gap (12-20) BUN (9-16) mg/dL Creatinine (0.5-1.4) mg/dL Estim Creat Clear Calc Estimated GFR Random Glucose (60-115) mg/dL Lactic Acid (0.5-2.0) mmol/L Calcium (8.4-10.2) mg/dL Magnesium (1.6-2.6) mg/dL Total Bilirubin (0.0-1.0) mg/dL Direct Bilirubin (0.0-0.5) mg/dL AST (5-31) U/L ALT (0-31) U/L Alkaline Phosphatase (39-117) U/L Total Protein (6.5-8.0) g/dL Albumin (3.5-5.0) g/dL Lipase (8-78) U/L Urine Color Urine Appearance Urine pH (5.0-8.0) Ur Specific [place] (1.005-1.025) Urine Protein (NEG-TRACE) MG/DL Urine Glucose (UA) (NEG) MG/DL Urine Ketones (NEG) MG/DL Urine Blood (NEG) Urine Nitrite (NEG) Ur Leukocyte Esterase (NEG) Urine RBC (0) /HPF Urine WBC (0-4) /HPF Ur Squamous Epith Cells /LPF Urine Bacteria /LPF Urine Test (NEGATIVE) Stool Occult Blood POSITIVE (NEGATIVE) <HOOD Wright - Last Filed: 09/09/20 15:08> Lab Results 09/09/20 09/09/20 09/09/20 Range/Units 11:01 11:01 11:01 WBC 8.9 (4.8-10.8) X10*3/uL RBC 3.77 L (4.20-5.50) X10*6/uL Hgb 12.4 (12.0-16.0) g/dl Hct 36.6 L (37-47) % MCV 97.1 (80-98) fL MCH 32.9 (27.0-33.0) pg MCHC 33.9 (31.0-35.0) g/dl RDW 13.0 (11.0-16.0) % Plt Count 225 (160-400) X10*3/uL MPV 8.6 L (9.4-12.3) fL Immature Gran % (Auto) 0.4 (0.0-0.4) % Neut % (Auto) 82.4 H (45-73) % Lymph % (Auto) 9.4 L (20-40) % [place] % (Auto) 6.9 (2-11) % Eos % (Auto) 0.7 (0-4) % Baso % (Auto) 0.2 (0-2) % Lymph # (Auto) 0.8 L (1.2-4.9) X10*3/uL [place] # (Auto) 0.6 (0.1-1.2) X10*3/uL Eos # (Auto) 0.1 (0.0-0.4) X10*3/uL Baso # (Auto) 0.0 (0.0-0.2) X10*3/uL Abs Immat Gran (auto) 0.04 H (0.00-0.03) X10*3/uL Absolute Neuts (auto) 7.4 (2.0-8.3) X10*3/uL Absolute Nucleated RBC 0.000 (0.0-0.012) X10*3/uL Nucleated RBC % (auto) 0.0 (0.0-0.2) /100WBC Sodium 141 (135-145) mmol/L Potassium 3.4 (3.3-5.1) mmol/L Chloride 106 (96-108) mmol/L Carbon Dioxide 27 (22-29) mmol/L Anion Gap 11 L (12-20) BUN 6 L (9-16) mg/dL Creatinine 0.71 (0.5-1.4) mg/dL Estim Creat Clear Calc 78.3 Estimated GFR > 60 Random Glucose 98 (60-115) mg/dL Lactic Acid 0.6 (0.5-2.0) mmol/L Calcium 8.7 (8.4-10.2) mg/dL Magnesium (1.6-2.6) mg/dL Total Bilirubin 0.7 (0.0-1.0) mg/dL Direct Bilirubin 0.3 (0.0-0.5) mg/dL AST 14 (5-31) U/L ALT 14 (0-31) U/L Alkaline Phosphatase 54 (39-117) U/L Total Protein 6.5 (6.5-8.0) g/dL Albumin 4.0 (3.5-5.0) g/dL Lipase (8-78) U/L Urine Color Urine Appearance Urine pH (5.0-8.0) Ur Specific [place] (1.005-1.025) Urine Protein (NEG-TRACE) MG/DL Urine Glucose (UA) (NEG) MG/DL Urine Ketones (NEG) MG/DL Urine Blood (NEG) Urine Nitrite (NEG) Ur Leukocyte Esterase (NEG) Urine RBC (0) /HPF Urine WBC (0-4) /HPF Ur Squamous Epith Cells /LPF Urine Bacteria /LPF Urine Test (NEGATIVE) Stool Occult Blood (NEGATIVE) 09/09/20 09/09/20 09/09/20 Range/Units 11:01 11:01 11:01 WBC (4.8-10.8) X10*3/uL RBC (4.20-5.50) X10*6/uL Hgb (12.0-16.0) g/dl Hct (37-47) % MCV (80-98) fL MCH (27.0-33.0) pg MCHC (31.0-35.0) g/dl RDW (11.0-16.0) % Plt Count (160-400) X10*3/uL MPV (9.4-12.3) fL Immature Gran % (Auto) (0.0-0.4) % Neut % (Auto) (45-73) % Lymph % (Auto) (20-40) % [place] % (Auto) (2-11) % Eos % (Auto) (0-4) % Baso % (Auto) (0-2) % Lymph # (Auto) (1.2-4.9) X10*3/uL [place] # (Auto) (0.1-1.2) X10*3/uL Eos # (Auto) (0.0-0.4) X10*3/uL Baso # (Auto) (0.0-0.2) X10*3/uL Abs Immat Gran (auto) (0.00-0.03) X10*3/uL Absolute Neuts (auto) (2.0-8.3) X10*3/uL Absolute Nucleated RBC (0.0-0.012) X10*3/uL Nucleated RBC % (auto) (0.0-0.2) /100WBC Sodium (135-145) mmol/L Potassium (3.3-5.1) mmol/L Chloride (96-108) mmol/L Carbon Dioxide (22-29) mmol/L Anion Gap (12-20) BUN (9-16) mg/dL Creatinine (0.5-1.4) mg/dL Estim Creat Clear Calc Estimated GFR Random Glucose (60-115) mg/dL Lactic Acid (0.5-2.0) mmol/L Calcium (8.4-10.2) mg/dL Magnesium 1.9 (1.6-2.6) mg/dL Total Bilirubin (0.0-1.0) mg/dL Direct Bilirubin (0.0-0.5) mg/dL AST (5-31) U/L ALT (0-31) U/L Alkaline Phosphatase (39-117) U/L Total Protein (6.5-8.0) g/dL Albumin (3.5-5.0) g/dL Lipase 5 L (8-78) U/L Urine Color YELLOW Urine Appearance HAZY Urine pH 6.0 (5.0-8.0) Ur Specific [place] 1.020 (1.005-1.025) Urine Protein TRACE (NEG-TRACE) MG/DL Urine Glucose (UA) NEG (NEG) MG/DL Urine Ketones NEG (NEG) MG/DL Urine Blood 2+ H (NEG) Urine Nitrite NEG (NEG) Ur Leukocyte Esterase NEG (NEG) Urine RBC 5-9 H (0) /HPF Urine WBC 0-2 (0-4) /HPF Ur Squamous Epith Cells 1+ /LPF Urine Bacteria TRACE /LPF Urine Test NEGATIVE (NEGATIVE) Stool Occult Blood (NEGATIVE) 09/09/20 Range/Units 11:05 WBC (4.8-10.8) X10*3/uL RBC (4.20-5.50) X10*6/uL Hgb (12.0-16.0) g/dl Hct (37-47) % MCV (80-98) fL MCH (27.0-33.0) pg MCHC (31.0-35.0) g/dl RDW (11.0-16.0) % Plt Count (160-400) X10*3/uL MPV (9.4-12.3) fL Immature Gran % (Auto) (0.0-0.4) % Neut % (Auto) (45-73) % Lymph % (Auto) (20-40) % [place] % (Auto) (2-11) % Eos % (Auto) (0-4) % Baso % (Auto) (0-2) % Lymph # (Auto) (1.2-4.9) X10*3/uL [place] # (Auto) (0.1-1.2) X10*3/uL Eos # (Auto) (0.0-0.4) X10*3/uL Baso # (Auto) (0.0-0.2) X10*3/uL Abs Immat Gran (auto) (0.00-0.03) X10*3/uL Absolute Neuts (auto) (2.0-8.3) X10*3/uL Absolute Nucleated RBC (0.0-0.012) X10*3/uL Nucleated RBC % (auto) (0.0-0.2) /100WBC Sodium (135-145) mmol/L Potassium (3.3-5.1) mmol/L Chloride (96-108) mmol/L Carbon Dioxide (22-29) mmol/L Anion Gap (12-20) BUN (9-16) mg/dL Creatinine (0.5-1.4) mg/dL Estim Creat Clear Calc Estimated GFR Random Glucose (60-115) mg/dL Lactic Acid (0.5-2.0) mmol/L Calcium (8.4-10.2) mg/dL Magnesium (1.6-2.6) mg/dL Total Bilirubin (0.0-1.0) mg/dL Direct Bilirubin (0.0-0.5) mg/dL AST (5-31) U/L ALT (0-31) U/L Alkaline Phosphatase (39-117) U/L Total Protein (6.5-8.0) g/dL Albumin (3.5-5.0) g/dL Lipase (8-78) U/L Urine Color Urine Appearance Urine pH (5.0-8.0) Ur Specific [place] (1.005-1.025) Urine Protein (NEG-TRACE) MG/DL Urine Glucose (UA) (NEG) MG/DL Urine Ketones (NEG) MG/DL Urine Blood (NEG) Urine Nitrite (NEG) Ur Leukocyte Esterase (NEG) Urine RBC (0) /HPF Urine WBC (0-4) /HPF Ur Squamous Epith Cells /LPF Urine Bacteria /LPF Urine Test (NEGATIVE) Stool Occult Blood POSITIVE (NEGATIVE) <Steve Mccartney MD - Last Filed: 09/23/20 15:45> Discharge Plan Discharge Clinical Impression: Pancolitis <HOOD Wright - Last Filed: 09/09/20 15:08> Patient Disposition: Admitted As Inpatient <HOOD Wright - Last Filed: 09/09/20 15:08> Interventions: Admission Worksheet (ED) Last Done: 09/09/20 19:49 <HOOD Wright - Last Filed: 09/09/20 15:08> Discharge Date/Time: 09/09/20 19:51 <HOOD Wright - Last Filed: 09/09/20 15:08> [facility] Past Medical History Attestation statement: The following information was validated with the patient. <HOOD Wright - Last Filed: 09/09/20 15:08> Medical History: Medical History Cervical cancer Cholecystectomy planned Radiation cystitis <HOOD Wright - Last Filed: 09/09/20 15:08> Surgical History: Surgical History Hx of elbow surgery Tubal ligation status <HOOD Wright - Last Filed: 09/09/20 15:08> Social History Social History: Social History Household Members: Significant Other and Family Housing: House Do you presently have visiting nurse or other home services: No Alcohol intake: never Patient Tobacco Use Status: Current everyday Tobacco user Tobacco use type: Cigarette Smoked in Last 30 Days: Yes Patient Interested in Nicotine Replacement: No Patient Given Instructions on How to Stop Smoking: Yes Date Education Initiated: 08/05/21 Second Hand Smoke Exposure: No Use of substances other than those prescribed or required for medical reasons: No Currently Displaying Signs/Symptoms of Drug Intoxication Withdrawal: No Any prior treatment program specific to substance use: No Have you been hit, kicked, punched, or otherwise hurt by someone within the past year? If so, by whom?: No Do you feel safe in your current relationship?: Yes Is there a partner from a previous relationship who is making you feel unsafe now?: No Are you made to feel afraid or neglected: No Are you DNR?: No Advance Directives: Yes Advance Directives Information Provided: Yes Advance Directives on File: No Advance Directives Date on File: 09/10/20 Do you have thoughts of harming others: None Do you have a plan to hurt others: No Plan Recently lost weight without trying: Unsure How much weight loss: Unsure Eating poorly because of decreased appetite: No Nutrition screen score: 4 Nutrition Risks: No Nutritional Risk Patient : No : No Poor oral hygiene: No service: No Current occupational status: employed <OHOD Wright - Last Filed: 09/09/20 15:08>
[2020-09-09 11:12] LABS: Basophils Percent Auto 0.2 % (0-2); Eosinophils Absolute Auto 0.1 X10*3/uL (0.0-0.4); Eosinophils Percent Auto 0.7 % (0-4); Hematocrit 36.6 % (37-47); Hemoglobin 12.4 g/dl (12.0-16.0); Imm Gran Abs Auto 0.04 X10*3/uL (0.00-0.03); Imm Gran Pct Auto 0.4 % (0.0-0.4); Lymphocytes Absolute Auto 0.8 X10*3/uL (1.2-4.9); Lymphocytes Percent Auto 9.4 % (20-40); Mean Corpuscular HGB Conc 33.9 g/dl (31.0-35.0); Mean Corpuscular Hemoglobin 32.9 pg (27.0-33.0); Mean Corpuscular Volume 97.1 fL (80-98); Mean Platelet Volume 8.6 fL (9.4-12.3); Monocytes Absolute Auto 0.6 X10*3/uL (0.1-1.2); Monocytes Percent Auto 6.9 % (2-11); Neutrophils Absolute Auto 7.4 X10*3/uL (2.0-8.3); Neutrophils Percent Auto 82.4 % (45-73); Platelet Count 225 X10*3/uL (160-400); Red Blood Count 3.77 X10*6/uL (4.20-5.50); White Blood Count 8.9 X10*3/uL (4.8-10.8)
[2020-09-09] MEDS: 0.9 % Sodium Chloride 1,000 ML 999 ML IVCONT ×2 (11:15→14:21)
[2020-09-09 11:16] LABS: Glucose Urine UA NEG (NEG); Leukocyte Esterase Urine NEG (NEG); Nitrite Urine NEG (NEG); UACC Culture Trigger NO; Urine Blood 2+ (NEG); Urine Ketones NEG (NEG); Urine Protein TRACE MG/DL (NEG-TRACE)
[2020-09-09 11:18] LABS: OBS Int Ctl Valid YES; OBS1 POSITIVE (NEGATIVE)
[2020-09-09 11:18] LABS: Appearance Urine HAZY; Color Urine YELLOW
[2020-09-09 11:19] LABS: UPreg QC Valid YES; Urine Pregnancy NEGATIVE (NEGATIVE)
[2020-09-09] MEDS: Famotidine/PF 20 MG/2 ML VIAL IVPUSH (11:19)
[2020-09-09] MEDS: Morphine Sulfate 2 MG/ML CARTRIDGE IVPUSH ×2 (11:19→14:21)
[2020-09-09 11:32] LABS: Lactic Acid 0.6 mmol/L (0.5-2.0)
[2020-09-09 11:37] LABS: Bacteria Urine TRACE /LPF; Squamous Epithelial Cell Urine 1+ /LPF; WBC Urine 0-2 /HPF (0-4)
[2020-09-09 11:55] LABS: Alanine Aminotransferase 14 U/L (0-31); Alkaline Phosphatase 54 U/L (39-117); Anion Gap 11 (12-20); Aspartate Amino Transferase 14 U/L (5-31); Bilirubin Direct 0.3 mg/dL (0.0-0.5); Bilirubin Total 0.7 mg/dL (0.0-1.0); Blood Urea Nitrogen 6 mg/dL (9-16); Calcium 8.7 mg/dL (8.4-10.2); Carbon Dioxide 27 mmol/L (22-29); Chloride 106 mmol/L (96-108); Creatinine Clr Calc Pharmacy 78.3; Estimated Glomerular Filt Rate > 60; Glucose Random 98 mg/dL (60-115); Potassium 3.4 mmol/L (3.3-5.1); Sodium 141 mmol/L (135-145); Total Protein 6.5 g/dL (6.5-8.0)
[2020-09-09 11:56] LABS: Lipase 5 U/L (8-78); Magnesium 1.9 mg/dL (1.6-2.6)
[2020-09-09] MEDS: iohexoL 350 MG/ML 100 ML INFUS..BTL IV (12:21)
[2020-09-09] MEDS: Piperacillin Sodium/Tazobactam 3.375 GM in 0.9 % Sodium Chloride 50 ML IV ×2 (14:33→20:23)
--- NOTE | 2020-09-09 15:36 | PM.IMHP ---
History of Present Illness Date of Service: 09/09/20 Chief Complaint: abd pain 44F presented with 1-2 days abdominal pain, mucusy diarrhea. patient was diagnosed with colitis on 08/25/20 at [facility], received 7 days po antibiotics, improved, then about 2 days ptp, started to have worsening abdominal pain, diffuse, 10/10, a/w mucusy diarrhea. denies fevers at home, had low grade in eD. of note patient has history of cervical Ca, was treated about one year back with chemo and radiation and has known radiation cysitis and colitis. Review of Systems Review of Systems: Constitutional: Chills Eyes: denies blurry vision ENT: denies sore throat CVS: denies chest pain Respiratory: Denies dyspnea GI:abdominal pain : denies dysuria MSK: denies neck pain Skin: denies rash Neuro: denies specific motor weakness Psych: denies suicidal ideation Endocrine: denies heat/cold intolerance Hematologic: denies easy bleeding Allergy: denies hives [facility] Medical History Cervical cancer Cholecystectomy planned Radiation cystitis Family history: reviewed and not pertinent Surgical History Tubal ligation status Social History Alcohol intake: never Patient Tobacco Use Status: Current everyday Tobacco user Use of substances other than those prescribed or required for medical reasons: No Advance Directives: Yes Advance Directives Information Provided: Yes Advance Directives on File: No Patient : No Meds Allergies Allergy/AdvReac Type Severity Reaction Status Date / Time guaifenesin [GUAIFENESIN] Allergy Intermediate HIVES Unverified 10/24/19 15:04 metaproterenol [From Alupent] Allergy Mild PALPITATIONS, Unverified 10/24/19 15:04 RASH N.K.D.A. Allergy Unknown Uncoded 01/02/19 00:00 Active Medications: Current Medications Generic Name Dose Route Start Last Admin Trade Name Freq PRN Reason Stop Dose Admin Acetaminophen 650 mg 09/09/20 15:34 Acetaminophen 325 Mg Tablet PO Q6H PRN Pain, Mild (Pain Scale 1-3) Clonazepam 0.5 mg 09/09/20 21:00 Clonazepam 0.5 Mg Tablet PO BID [facility] Enoxaparin Sodium 40 mg 09/09/20 15:45 Enoxaparin Sodium 40 Mg/0.4 Ml Syringe SUBCUT Q24H [facility] Ethinyl Estradiol/Norgestimate 1 tab 09/10/20 09:00 Norgestimat/Eth Est 0.25/0.035 Tablet PO DAILY [facility] Hydromorphone HCl 0.5 mg 09/09/20 15:32 Hydromorphone Hcl 0.5 Mg/0.5 Ml Syringe IVPUSH Q4H PRN pain Piperacillin Sod/Tazobactam 50 mls @ 100 mls/hr 09/09/20 15:45 Sod 3.375 gm/ Sodium Chloride IV Q6H [facility] Lactated Ringer's 1,000 mls @ 80 mls/hr 09/09/20 15:45 Lr IVCONT .[id number] [facility] Non-Formulary Medication 1 tab 09/09/20 21:00 Zolpidem PO BEDTIME [facility] Pharmacy Consult 1 each 09/09/20 15:02 Consult Rx Perform Med Rec MISCELLANE ONCE PRN Consult order Sodium Chloride 3 ml 09/09/20 16:00 0.9 % Sodium Chloride Flush 3 Ml Syringe IVFLUSH QSHIFT [facility] Home Medications Medication Instructions Recorded Confirmed Last Taken Type clonazepam 0.5 mg tablet 1 tab PO BID 09/09/20 09/09/20 09/08/20 History norgestimate 0.25 mg-ethinyl 1 tab PO DAILY 09/09/20 09/09/20 09/08/20 History estradiol 35 mcg tablet (Estarylla) oxycodone 5 mg tablet 1 tab PO Q8H PRN 09/09/20 09/09/20 09/09/20 History zolpidem 12.5 mg tablet,extended 1 tab PO BEDTIME 09/09/20 09/09/20 09/08/20 History release,multiphase Physical Exam Vital Signs and Narrative: Vital Signs: Last Vital Signs Temp 99.4 F 09/09/20 14:19 Pulse 99 09/09/20 14:38 Resp 16 09/09/20 14:38 BP 138/80 09/09/20 14:38 Pulse Ox 99 09/09/20 14:38 Body Mass Index 21.7 General: in pain HEENT: atraumatic Neck: normal to visual inspection CVS: S1, S2, RRR Resp: CTA bilateral Chest: non tender GI: soft, diffuse tender, non distended : no CVA tenderness Skin: no rashes Extremities: no edema Neuro: Oriented X3, grossly intact Psych: cooperative Results Labs CBC and Chem 7: 09/09/20 11:01 09/09/20 11:01 Labs: Laboratory Results - last 24 hr 09/09/20 09/09/20 09/09/20 11:01 11:01 11:01 MCV 97.1 MCH 32.9 MCHC 33.9 RDW 13.0 Plt Count 225 MPV 8.6 L Immature Gran % (Auto) 0.4 Neut % (Auto) 82.4 H Lymph % (Auto) 9.4 L Brule % (Auto) 6.9 Eos % (Auto) 0.7 Baso % (Auto) 0.2 Lymph # (Auto) 0.8 L Brule # (Auto) 0.6 Eos # (Auto) 0.1 Baso # (Auto) 0.0 Abs Immat Gran (auto) 0.04 H Absolute Neuts (auto) 7.4 Absolute Nucleated RBC 0.000 Nucleated RBC % (auto) 0.0 Anion Gap 11 L Estim Creat Clear Calc 78.3 Estimated GFR > 60 Random Glucose 98 Lactic Acid 0.6 Calcium 8.7 Magnesium Total Bilirubin 0.7 Direct Bilirubin 0.3 AST 14 ALT 14 Alkaline Phosphatase 54 Total Protein 6.5 Albumin 4.0 Lipase Urine Color Urine Appearance Urine pH Ur Specific [place] Urine Protein Urine Glucose (UA) Urine Ketones Urine Blood Urine Nitrite Ur Leukocyte Esterase Urine RBC Urine WBC Ur Squamous Epith Cells Urine Bacteria Urine Test Stool Occult Blood 09/09/20 09/09/20 09/09/20 11:01 11:01 11:01 MCV MCH MCHC RDW Plt Count MPV Immature Gran % (Auto) Neut % (Auto) Lymph % (Auto) Brule % (Auto) Eos % (Auto) Baso % (Auto) Lymph # (Auto) Brule # (Auto) Eos # (Auto) Baso # (Auto) Abs Immat Gran (auto) Absolute Neuts (auto) Absolute Nucleated RBC Nucleated RBC % (auto) Anion Gap Estim Creat Clear Calc Estimated GFR Random Glucose Lactic Acid Calcium Magnesium 1.9 Total Bilirubin Direct Bilirubin AST ALT Alkaline Phosphatase Total Protein Albumin Lipase 5 L Urine Color YELLOW Urine Appearance HAZY Urine pH 6.0 Ur Specific [place] 1.020 Urine Protein TRACE Urine Glucose (UA) NEG Urine Ketones NEG Urine Blood 2+ H Urine Nitrite NEG Ur Leukocyte Esterase NEG Urine RBC 5-9 H Urine WBC 0-2 Ur Squamous Epith Cells 1+ Urine Bacteria TRACE Urine Test NEGATIVE Stool Occult Blood 09/09/20 11:05 MCV MCH MCHC RDW Plt Count MPV Immature Gran % (Auto) Neut % (Auto) Lymph % (Auto) Brule % (Auto) Eos % (Auto) Baso % (Auto) Lymph # (Auto) Brule # (Auto) Eos # (Auto) Baso # (Auto) Abs Immat Gran (auto) Absolute Neuts (auto) Absolute Nucleated RBC Nucleated RBC % (auto) Anion Gap Estim Creat Clear Calc Estimated GFR Random Glucose Lactic Acid Calcium Magnesium Total Bilirubin Direct Bilirubin AST ALT Alkaline Phosphatase Total Protein Albumin Lipase Urine Color Urine Appearance Urine pH Ur Specific [place] Urine Protein Urine Glucose (UA) Urine Ketones Urine Blood Urine Nitrite Ur Leukocyte Esterase Urine RBC Urine WBC Ur Squamous Epith Cells Urine Bacteria Urine Test Stool Occult Blood POSITIVE Imaging Radiologist's Impressions: Impressions Abdomen/Pelvis CT 09/09/20 10:21 IMPRESSION: Pancolitis and ileitis of the distal small bowel. There is mild dilatation of the distal small and proximal large bowel. Small amount of ascites. Assessment and Plan (1) Pancolitis: Status: Acute 44F presented with abdominal pain pancolitis/ileitis zosyn, ivf, pain control, GI eval, check cdif, stool cultures, clear liquid diet anxiety klonipin insomina ambien Quality Stroke Does the patient have a stroke diagnosis?: No VTE Prior VTE?: No VTE Risk Level:: Medical - moderate - high VTE Device Contraindication: Treatment Not Indicated VTE Drug Contraindication: N/A - Med Ordered
--- NOTE | 2020-09-09 15:54 | PHA.MEDREC ---
Pharmacy Consult ? Medication Reconciliation Pharmacy has completed the medication reconciliation.
[2020-09-09] MEDS: Acetaminophen 325 MG TABLET 650 MG PO ×2 (16:23→22:25)
[2020-09-09] MEDS: HYDROmorphone HCl 0.5 MG/0.5 ML SYRINGE IVPUSH ×2 (16:23→20:41)
[2020-09-09] MEDS: Lactated Ringers 1,000 ML 80 ML IVCONT (17:31)
[2020-09-09 17:58] LABS: COVID-19 Test Negative (Negative); IDNOW Serial# 9DD0AD1C
--- NOTE | 2020-09-09 19:40 | MHC.CM.PN ---
Addendum entered by Jocelyn Waite 09/09/20 19:47: PCP is Dr. Edmundo Burnham Original Note: CM met with admitted pt, room 477. 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 HCP is no on file. Pt states it's at [facility]. Had CA treatments for cervical CA with radiation a year ago at [facility] [place]. Copy requested. Darion Malik HCP/S.O. ([phone]). Radha Rodríguez aunt/HCP ([phone]). D/C plan is home without services. Transportation by family. CM to follow for d/c needs.
[2020-09-09] MEDS: 0.9 % Sodium Chloride Flush 3 ML SYRINGE IVFLUSH (20:24)
[2020-09-09] MEDS: clonazePAM 0.5 MG TABLET PO (20:24)
[2020-09-09] MEDS: Zolpidem Tartrate 5 MG TABLET PO (20:41)
[2020-09-10] VITALS (7 sets, daily range): BP systolic 130–176; BP diastolic 65–94; PULSE 77–106; RESP 16–20; TEMP 36.2–37; O2SAT 96–100; BMI 21.3
[2020-09-10] MEDS: HYDROmorphone HCl 0.5 MG/0.5 ML SYRINGE IVPUSH ×5 (03:20→22:25)
[2020-09-10] MEDS: Piperacillin Sodium/Tazobactam 3.375 GM in 0.9 % Sodium Chloride 50 ML IV ×4 (03:20→20:37)
[2020-09-10 06:11] LABS: Hematocrit 31.1 % (37-47); Hemoglobin 10.3 g/dl (12.0-16.0); Mean Corpuscular HGB Conc 33.1 g/dl (31.0-35.0); Mean Corpuscular Hemoglobin 32.4 pg (27.0-33.0); Mean Corpuscular Volume 97.8 fL (80-98); Mean Platelet Volume 9.1 fL (9.4-12.3); Platelet Count 196 X10*3/uL (160-400); Red Blood Count 3.18 X10*6/uL (4.20-5.50); Red Cell Distribution Width 12.9 % (11.0-16.0); White Blood Count 6.6 X10*3/uL (4.8-10.8)
[2020-09-10] MEDS: Lactated Ringers 1,000 ML 80 ML IVCONT ×2 (06:15→18:17)
[2020-09-10] MEDS: Acetaminophen 325 MG TABLET 650 MG PO (06:19)
[2020-09-10 06:40] LABS: Anion Gap 9 (12-20); Blood Urea Nitrogen 3 mg/dL (9-16); Calcium 7.7 mg/dL (8.4-10.2); Carbon Dioxide 26 mmol/L (22-29); Chloride 109 mmol/L (96-108); Creatinine Clr Calc Pharmacy 81.7; Estimated Glomerular Filt Rate > 60; Glucose Fasting 89 mg/dL (60-99); Magnesium 1.8 mg/dL (1.6-2.6); Potassium 3.2 mmol/L (3.3-5.1); Sodium 141 mmol/L (135-145)
[2020-09-10] MEDS: Potassium Chloride ER 20 MEQ TAB.ER.PRT 40 MEQ PO (09:38)
[2020-09-10] MEDS: clonazePAM 0.5 MG TABLET PO ×2 (09:38→20:37)
[2020-09-10] MEDS: 0.9 % Sodium Chloride Flush 3 ML SYRINGE IVFLUSH ×2 (09:39→14:26)
--- NOTE | 2020-09-10 11:58 | HO.PM.IMPN ---
Subjective Subjective Date of Service: 09/10/20 Interval History: still with pain Constitutional Constitutional: Reports no additional constitutional complaints Cardiovascular Cardiovascular: Reports no additional cardiovascular complaints Physical Exam Vital Signs: Vital Signs: Last Vital Signs Temp 98.1 F 09/10/20 08:00 Pulse 79 09/10/20 08:00 Resp 18 09/10/20 08:00 BP 131/68 09/10/20 08:00 Pulse Ox 97 09/10/20 08:00 Body Mass Index 21.3 General: AO X 3, no acute distress Resp: CTA bilateral CVS: S1,S2,RRR GI: soft, tender, non distended Neuro: motor grossly intact Psych: appropriate affect Objective Data Current Medications Generic Name Dose Route Start Last Admin Trade Name Freq PRN Reason Stop Dose Admin Acetaminophen 650 mg 09/09/20 15:34 09/10/20 06:19 Acetaminophen 325 Mg Tablet PO 650 mg Q6H PRN Administration Pain, Mild (Pain Scale 1-3) Clonazepam 0.5 mg 09/09/20 21:00 09/10/20 09:38 Clonazepam 0.5 Mg Tablet PO 0.5 mg BID VALERI Administration Enoxaparin Sodium 40 mg 09/09/20 18:00 09/09/20 20:25 Enoxaparin Sodium 40 Mg/0.4 Ml Syringe SUBCUT Not Given Q24H VALERI Hydromorphone HCl 0.5 mg 09/09/20 15:32 09/10/20 09:38 Hydromorphone Hcl 0.5 Mg/0.5 Ml Syringe IVPUSH 0.5 mg Q4H PRN Administration pain Piperacillin Sod/Tazobactam 50 mls @ 100 mls/hr 09/09/20 20:00 09/10/20 11:21 Sod 3.375 gm/ Sodium Chloride IV Infused Q6H VALERI Infusion Lactated Ringer's 1,000 mls @ 80 mls/hr 09/09/20 15:45 09/10/20 06:15 Lr IVCONT 80 mls/hr .[id number] VALERI Administration Patient Own 1 each 09/10/20 09:00 Medication PO Norgestimat/Eth Est DAILY VALERI 0.25/0.035 Tablet Pharmacy Consult 1 each 09/09/20 15:02 Consult Rx Perform Med Rec MISCELLANE ONCE PRN Consult order Sodium Chloride 3 ml 09/09/20 16:00 09/10/20 09:39 0.9 % Sodium Chloride Flush 3 Ml Syringe IVFLUSH 3 ml QSHIFT VALERI Administration Zolpidem Tartrate 5 mg 09/09/20 15:42 09/09/20 20:41 Zolpidem Tartrate 5 Mg Tablet PO 5 mg BEDTIME PRN Administration Insomnia Labs CBC & Chem 7: 09/10/20 05:34 09/10/20 05:34 Labs: Laboratory Results - last 24 hr 09/09/20 09/10/20 09/10/20 17:25 05:34 05:34 MCV 97.8 MCH 32.4 MCHC 33.1 RDW 12.9 Plt Count 196 MPV 9.1 L Absolute Nucleated RBC 0.000 Nucleated RBC % (auto) 0.0 Anion Gap 9 L Estim Creat Clear Calc 81.7 Estimated GFR > 60 Fasting Glucose 89 Calcium 7.7 L D Magnesium 1.8 COVID-19 (JANIS) Negative COVID-19 Clin Com See Note Assessment and Plan (1) Pancolitis: Status: Acute Assessment and Plan: ? 44F presented with abdominal pain pancolitis/ileitis zosyn, ivf, pain control, GI eval, check cdif (no sample yet, diarrhea has slowed down), stool cultures, clear liquid diet - minimally tolerating, will keep on clears for now anxiety rimma insmikieina ambartie Quality Stroke Does the patient have a stroke diagnosis?: No VTE Prior VTE?: No VTE Risk Level:: Medical - moderate - high VTE Device Contraindication: Treatment Not Indicated VTE Drug Contraindication: N/A - Med Ordered
--- NOTE | 2020-09-10 12:03 | P.EN_ITS ---
Event Note Date of Service: 09/10/20 Event Note: GI consult dictated abdominal pain with ct showing colitis s/p recent rx for same with cipro/flagyl h/o chemoradiation for cervical ca EGD/colon at [facility] in Jan showed mild radiation changes endoscopically in sigmoid, biopsies were WNL including rest of colon. +H pylori on gastric bxs, treated. CT yesterday shows pancolitis, ?c-diff given recent abx usage. Pt unable to provide sample. Plan for limited unprepped colonscopy tomorrow for dx.
--- NOTE | 2020-09-10 12:51 | MHC.SHP ---
Pre-Procedural Eval Section A Date of Service: 09/10/20 The patient is an INPATIENT: Yes Changes since office visit: No Cold of Flu in the past 2 weeks, No New Medical Problems, No Changes in Medication and No Patient answered all questions The History & Physical has been completed within 30 days and I have reviewed it.: Yes Section B Chief Complaint: Pancollitis Allergies: Allergies Allergy/AdvReac Type Severity Reaction Status Date / Time guaifenesin [GUAIFENESIN] Allergy Intermediate HIVES Verified 09/10/20 06:42 metaproterenol [From Alupent] Allergy Mild PALPITATIONS, Verified 09/10/20 06:42 RASH Plan I have reviewed the history and physical and performed a pertinent physical examination on my patient. No changes have occurred unless specified.
--- NOTE | 2020-09-10 13:48 | CONS_ITS ---
DATE OF SERVICE: 09/10/2020 REFERRING PHYSICIAN: Jesus Arriaga MD REASON FOR CONSULTATION: Colitis. HISTORY OF PRESENT ILLNESS: The patient is a 44-year-old woman, who was admitted to the hospital after presenting to the emergency room with complaints of constipation and diarrhea as well as abdominal pain and colitis. She was reportedly diagnosed with colitis about 10 days prior to admission and at [facility] after ER evaluation, she was given Cipro and Flagyl for 7 days and completed this with some improvement and diarrheal symptoms. Symptoms recurred several days after stopping with diarrhea, which was mucousy with flecks of blood. There was generalized 10/10 abdominal pain. She denies fever or chills at home. She presented to the emergency department, where she was evaluated. At that time, she was noted to have a fever to 100.2, but vital signs were otherwise stable. Laboratory studies and CT scanning were obtained, which are reviewed. She did not have an elevated white count and liver function tests as well as lipase were within normal limits. CT scanning showed pancolitis with ileitis as well. A small amount of ascites was also noted. She was given antibiotics and admitted to the hospital. Since admission, she has been unable to provide a stool sample. The patient has a history of chemoradiation for cervical cancer and previously underwent upper endoscopy and colonoscopy in January for evaluation of diarrheal symptoms. Endoscopically, she appeared to have some mild radiation related changes in the rectosigmoid. Biopsies from this area were normal as they were from the rest of the colon. Upper endoscopy showed H pylori on gastric biopsies, which was treated. She has no prior history of inflammatory bowel disease nor family history of this as well. PAST MEDICAL HISTORY: 1. Cervical cancer as above. 2. Radiation cystitis and colitis as above. 3. Anxiety. 4. Eczema. CURRENT MEDICATIONS: Her current medication list is reviewed in the chart. ALLERGIES: MUCINEX. FAMILY HISTORY: This is reviewed with the patient and is noncontributory. SOCIAL HISTORY: She does smoke. She denies significant alcohol intake and denies drug use. REVIEW OF SYSTEMS: SKIN: No pruritus. HEENT: Negative. CARDIOPULMONARY: No shortness of breath or chest pain. GASTROINTESTINAL: As above. GENITOURINARY: Negative. NEUROPSYCHIATRIC: Negative. PAST SURGICAL HISTORY: Includes tubal ligation, cholecystectomy, and cervical colon surgery. PHYSICAL EXAMINATION: GENERAL: Shows a pleasant female. VITAL SIGNS: Stable. She is afebrile. SKIN: Shows multiple tattoos. HEENT: Shows no scleral icterus. NECK: Without lymphadenopathy or thyromegaly. LUNGS: Clear. HEART: Regular rate and rhythm. S1, S2. No murmur. ABDOMEN: Soft without focal tenderness or masses. She is mildly tender generally to palpation. Bowel sounds are present. No organomegaly is palpable. EXTREMITIES: Without edema. LABORATORY DATA: Reviewed including her CT scan. IMPRESSION: Colitis. The differential diagnosis for this includes infectious colitis, and antibiotic associated colitis including C diff. Ischemic colitis would be less likely, and I doubt this represents a primary presentation of inflammatory bowel disease. Stool studies are to be obtained. Guaiac testing was positive on admission. I did recommend limited lower GI tract evaluation with unprepped colonoscopy for further evaluation including biopsy. This will be arranged for tomorrow. She understands risks and benefits and agrees to proceed. Thanks for asking me to see her. I will follow her in the hospital with you. MD BOB Stubbs/SENIA / [id number] MTDD
[2020-09-10 17:39] LABS: CDiff Gene PCR NEGATIVE (Negative)
[2020-09-10] MEDS: Zolpidem Tartrate 5 MG TABLET PO (22:24)
[2020-09-11] MEDS: Piperacillin Sodium/Tazobactam 3.375 GM in 0.9 % Sodium Chloride 50 ML IV ×2 (00:06→08:10)
[2020-09-11] MEDS: HYDROmorphone HCl 0.5 MG/0.5 ML SYRINGE IVPUSH ×4 (04:42→21:39)
[2020-09-11 07:03] LABS: Hematocrit 30.8 % (37-47); Hemoglobin 10.3 g/dl (12.0-16.0); Mean Corpuscular HGB Conc 33.4 g/dl (31.0-35.0); Mean Corpuscular Hemoglobin 32.2 pg (27.0-33.0); Mean Corpuscular Volume 96.3 fL (80-98); Mean Platelet Volume 9.5 fL (9.4-12.3); Platelet Count 186 X10*3/uL (160-400); Red Cell Distribution Width 12.4 % (11.0-16.0); White Blood Count 4.4 X10*3/uL (4.8-10.8)
[2020-09-11 07:41] LABS: Anion Gap 14 (12-20); Blood Urea Nitrogen 3 mg/dL (9-16); Calcium 7.9 mg/dL (8.4-10.2); Carbon Dioxide 23 mmol/L (22-29); Chloride 106 mmol/L (96-108); Creatinine Clr Calc Pharmacy 81.7; Estimated Glomerular Filt Rate > 60; Glucose Fasting 91 mg/dL (60-99); Potassium 3.1 mmol/L (3.3-5.1); Sodium 140 mmol/L (135-145)
[2020-09-11 07:51] VITALS: BP 159/81; PULSE 86; RESP 17; TEMP 36.6; O2SAT 97
[2020-09-11] MEDS: clonazePAM 0.5 MG TABLET PO ×2 (08:10→21:39)
[2020-09-11 09:23] VITALS: BP 152/80; PULSE 76; RESP 16; TEMP 36.6; O2SAT 98
[2020-09-11] MEDS: Potassium Chloride ER 20 MEQ TAB.ER.PRT 40 MEQ PO (10:03)
[2020-09-11] MEDS: Lactated Ringers 1,000 ML 80 ML IVCONT (10:05)
--- NOTE | 2020-09-11 11:24 | P.PNIM_ITS ---
Subjective Subjective Date of Service: 09/11/20 Interval History: 50% better Constitutional Constitutional: Reports no additional constitutional complaints Eyes Eyes: Reports no additional eye complaints Physical Exam Vital Signs: Vital Signs: Last Vital Signs Temp 97.8 F 09/11/20 09:23 Pulse 76 09/11/20 09:23 Resp 16 09/11/20 09:23 BP 152/80 H 09/11/20 09:23 Pulse Ox 98 09/11/20 09:23 Body Mass Index 21.3 General: AO X 3, no acute distress Resp: CTA bilateral CVS: S1,S2,RRR GI: soft, non tender, non distended Neuro: motor grossly intact Psych: appropriate affect Objective Data Current Medications Generic Name Dose Route Start Last Admin Trade Name Freq PRN Reason Stop Dose Admin Acetaminophen 650 mg 09/09/20 15:34 09/10/20 06:19 Acetaminophen 325 Mg Tablet PO 650 mg Q6H PRN Administration Pain, Mild (Pain Scale 1-3) Clonazepam 0.5 mg 09/09/20 21:00 09/11/20 08:10 Clonazepam 0.5 Mg Tablet PO 0.5 mg BID VALERI Administration Enoxaparin Sodium 40 mg 09/09/20 18:00 09/10/20 18:18 Enoxaparin Sodium 40 Mg/0.4 Ml Syringe SUBCUT Not Given Q24H VALERI Hydromorphone HCl 0.5 mg 09/09/20 15:32 09/11/20 04:42 Hydromorphone Hcl 0.5 Mg/0.5 Ml Syringe IVPUSH 0.5 mg Q4H PRN Administration pain Piperacillin Sod/Tazobactam 50 mls @ 100 mls/hr 09/09/20 20:00 09/11/20 09:03 Sod 3.375 gm/ Sodium Chloride IV Infused Q6H VALERI Infusion Lactated Ringer's 1,000 mls @ 80 mls/hr 09/09/20 15:45 09/11/20 10:05 Lr IVCONT 80 mls/hr .[id number] VALERI Administration Patient Own 1 each 09/10/20 09:00 Medication PO Norgestimat/Eth Est DAILY VALERI 0.25/0.035 Tablet Pharmacy Consult 1 each 09/09/20 15:02 Consult Rx Perform Med Rec MISCELLANE ONCE PRN Consult order Sodium Chloride 3 ml 09/09/20 16:00 09/11/20 08:10 0.9 % Sodium Chloride Flush 3 Ml Syringe IVFLUSH Not Given QSHIFT [facility] Zolpidem Tartrate 5 mg 09/09/20 15:42 09/10/20 22:24 Zolpidem Tartrate 5 Mg Tablet PO 5 mg BEDTIME PRN Administration Insomnia Labs CBC & Chem 7: 09/11/20 06:10 09/11/20 06:10 Labs: Laboratory Results - last 24 hr 09/10/20 09/11/20 09/11/20 16:02 06:10 06:10 MCV 96.3 MCH 32.2 MCHC 33.4 RDW 12.4 Plt Count 186 MPV 9.5 Absolute Nucleated RBC 0.000 Nucleated RBC % (auto) 0.0 Anion Gap 14 Estim Creat Clear Calc 81.7 Estimated GFR > 60 Fasting Glucose 91 Calcium 7.9 L C. difficile Tox B Gene NEGATIVE Microbiology Microbiology Results: Microbiology 09/09/20 14:27 Blood Culture - Preliminary Blood - Venous No growth after 24 hours. 09/09/20 14:27 Blood Culture - Preliminary Blood - Venous No growth after 24 hours. Assessment and Plan (1) Pancolitis: Status: Acute Assessment and Plan: ? 44F presented with abdominal pain pancolitis/ileitis zosyn, ivf, pain control cdif negative gi appreciated, plan for colonoscopy today anxiety rimma jensen Quality Stroke Does the patient have a stroke diagnosis?: No VTE Prior VTE?: No VTE Risk Level:: Medical - moderate - high VTE Device Contraindication: Treatment Not Indicated VTE Drug Contraindication: N/A - Med Ordered
--- NOTE | 2020-09-11 11:59 | MHC.CM.PN ---
NURSE CHOIR SINGER NOTE ELECTRONIC MEDICAL RECORD REVIEWED ALONG WITH CASE DISCUSSED ON MULTIPLE DISCIPLINARY ROUNDS. PER DOCUMENTATION PANCOLITIS PLAN FOR COLONOSCOPY TODAY, CONTINUE IV ZOSYN,IV ANALGESICS, LABS FOR C-DIFF NEGATIVE. DISCHARGE PLAN- HOME NO SERVICES PCP DR SARAH PAEZ [facility]
[2020-09-11 13:12] VITALS: BP 156/101; PULSE 76; RESP 16; TEMP 36.7; O2SAT 100
--- NOTE | 2020-09-11 13:28 | P.CONAN_ITS ---
[facility] Active Problems Active Problems: All Active Problems (Updated 09/09/20 @ 14:24 by HOOD Wright) Pancolitis (Acute) Past Medical History Medical History Cervical cancer Cholecystectomy planned Radiation cystitis Surgical History Surgical History Hx of elbow surgery Tubal ligation status History of Problems with Anesthesia: No Social History Social History Household Members: Significant Other and Family Housing: House Do you presently have visiting nurse or other home services: No Alcohol intake: never Patient Tobacco Use Status: Current everyday Tobacco user Tobacco use type: Cigarette Smoked in Last 30 Days: Yes Patient Interested in Nicotine Replacement: No Patient Given Instructions on How to Stop Smoking: Yes Date Education Initiated: 09/10/20 Second Hand Smoke Exposure: No Use of substances other than those prescribed or required for medical reasons: No Currently Displaying Signs/Symptoms of Drug Intoxication Withdrawal: No Any prior treatment program specific to substance use: No Have you been hit, kicked, punched, or otherwise hurt by someone within the past year? If so, by whom?: No Do you feel safe in your current relationship?: Yes Is there a partner from a previous relationship who is making you feel unsafe now?: No Are you made to feel afraid or neglected: No Are you DNR?: No Advance Directives: Yes Advance Directives Information Provided: Yes Advance Directives on File: No Advance Directives Date on File: 09/10/20 Do you have thoughts of harming others: None Do you have a plan to hurt others: No Plan Recently lost weight without trying: Unsure How much weight loss: Unsure Eating poorly because of decreased appetite: No Nutrition screen score: 4 Nutrition Risks: No Nutritional Risk Patient : No : No Poor oral hygiene: No service: No Current occupational status: employed Meds Allergies Allergy/AdvReac Type Severity Reaction Status Date / Time guaifenesin [GUAIFENESIN] Allergy Intermediate HIVES Verified 09/10/20 06:42 metaproterenol [From Alupent] Allergy Mild PALPITATIONS, Verified 09/10/20 06:42 RASH Active Medications: Current Medications Generic Name Dose Route Start Last Admin Trade Name Freq PRN Reason Stop Dose Admin Acetaminophen 650 mg 09/09/20 15:34 09/10/20 06:19 Acetaminophen 325 Mg Tablet PO 650 mg Q6H PRN Administration Pain, Mild (Pain Scale 1-3) Clonazepam 0.5 mg 09/09/20 21:00 09/11/20 08:10 Clonazepam 0.5 Mg Tablet PO 0.5 mg BID VALERI Administration Enoxaparin Sodium 40 mg 09/09/20 18:00 09/10/20 18:18 Enoxaparin Sodium 40 Mg/0.4 Ml Syringe SUBCUT Not Given Q24H VALERI Hydromorphone HCl 0.5 mg 09/09/20 15:32 09/11/20 11:43 Hydromorphone Hcl 0.5 Mg/0.5 Ml Syringe IVPUSH 0.5 mg Q4H PRN Administration pain Piperacillin Sod/Tazobactam 50 mls @ 100 mls/hr 09/09/20 20:00 09/11/20 09:03 Sod 3.375 gm/ Sodium Chloride IV Infused Q6H VALERI Infusion Lactated Ringer's 1,000 mls @ 80 mls/hr 09/09/20 15:45 09/11/20 10:05 Lr IVCONT 80 mls/hr .[id number] VALERI Administration Patient Own 1 each 09/10/20 09:00 Medication PO Norgestimat/Eth Est DAILY VALERI 0.25/0.035 Tablet Pharmacy Consult 1 each 09/09/20 15:02 Consult Rx Perform Med Rec MISCELLANE ONCE PRN Consult order Sodium Biphosphate/Sodium Phosphate 133 ml 09/11/20 13:09 Sodium Phosphate,[place]-Dibasic 133 Ml Enema FL ONCE PRN Pre-Op Surgical Prep Sodium Chloride 3 ml 09/09/20 16:00 09/11/20 08:10 0.9 % Sodium Chloride Flush 3 Ml Syringe IVFLUSH Not Given QSHIFT VALERI Zolpidem Tartrate 5 mg 09/09/20 15:42 09/10/20 22:24 Zolpidem Tartrate 5 Mg Tablet PO 5 mg BEDTIME PRN Administration Insomnia Home Medications Medication Instructions Recorded Confirmed Last Taken Type clonazepam 0.5 mg tablet 1 tab PO BID 09/09/20 09/09/20 09/08/20 History norgestimate 0.25 mg-ethinyl 1 tab PO DAILY 09/09/20 09/09/20 09/08/20 History estradiol 35 mcg tablet (Estarylla) oxycodone 5 mg tablet 1 tab PO Q8H PRN 09/09/20 09/09/20 09/09/20 History zolpidem 12.5 mg tablet,extended 1 tab PO BEDTIME 09/09/20 09/09/20 09/08/20 History release,multiphase Exam Exam Date and Time: September 11, 2020 1328 Height,Weight and Vital Signs: Height 5 ft 2 in Weight 52.9 kg Last Vital Signs Temp 98.1 F 09/11/20 13:12 Pulse 76 09/11/20 13:12 Resp 16 09/11/20 13:12 BP 156/101 H 09/11/20 13:12 Pulse Ox 100 09/11/20 13:12 Pertinent Lab Results Pertinent Lab Results: Laboratory Tests 09/09/20 09/09/20 09/09/20 11:01 11:01 11:01 WBC 8.9 RBC 3.77 L Hgb 12.4 Hct 36.6 L MCV 97.1 MCH 32.9 MCHC 33.9 RDW 13.0 Plt Count 225 MPV 8.6 L Immature Gran % (Auto) 0.4 Neut % (Auto) 82.4 H Lymph % (Auto) 9.4 L [place] % (Auto) 6.9 Eos % (Auto) 0.7 Baso % (Auto) 0.2 Lymph # (Auto) 0.8 L [place] # (Auto) 0.6 Eos # (Auto) 0.1 Baso # (Auto) 0.0 Abs Immat Gran (auto) 0.04 H Absolute Neuts (auto) 7.4 Absolute Nucleated RBC 0.000 Nucleated RBC % (auto) 0.0 Sodium 141 Potassium 3.4 Chloride 106 Carbon Dioxide 27 Anion Gap 11 L BUN 6 L Creatinine 0.71 Estim Creat Clear Calc 78.3 Estimated GFR > 60 Random Glucose 98 Fasting Glucose Lactic Acid 0.6 Calcium 8.7 Magnesium Total Bilirubin 0.7 Direct Bilirubin 0.3 AST 14 ALT 14 Alkaline Phosphatase 54 Total Protein 6.5 Albumin 4.0 Lipase Urine Color Urine Appearance Urine pH Ur Specific [place] Urine Protein Urine Glucose (UA) Urine Ketones Urine Blood Urine Nitrite Ur Leukocyte Esterase Urine RBC Urine WBC Ur Squamous Epith Cells Urine Bacteria Urine Test Stool Occult Blood C. difficile Tox B Gene COVID-19 (JANIS) COVID-19 Clin Com 09/09/20 09/09/20 09/09/20 11:01 11:01 11:01 WBC RBC Hgb Hct MCV MCH MCHC RDW Plt Count MPV Immature Gran % (Auto) Neut % (Auto) Lymph % (Auto) [place] % (Auto) Eos % (Auto) Baso % (Auto) Lymph # (Auto) [place] # (Auto) Eos # (Auto) Baso # (Auto) Abs Immat Gran (auto) Absolute Neuts (auto) Absolute Nucleated RBC Nucleated RBC % (auto) Sodium Potassium Chloride Carbon Dioxide Anion Gap BUN Creatinine Estim Creat Clear Calc Estimated GFR Random Glucose Fasting Glucose Lactic Acid Calcium Magnesium 1.9 Total Bilirubin Direct Bilirubin AST ALT Alkaline Phosphatase Total Protein Albumin Lipase 5 L Urine Color YELLOW Urine Appearance HAZY Urine pH 6.0 Ur Specific [place] 1.020 Urine Protein TRACE Urine Glucose (UA) NEG Urine Ketones NEG Urine Blood 2+ H Urine Nitrite NEG Ur Leukocyte Esterase NEG Urine RBC 5-9 H Urine WBC 0-2 Ur Squamous Epith Cells 1+ Urine Bacteria TRACE Urine Test NEGATIVE Stool Occult Blood C. difficile Tox B Gene COVID-19 (JANIS) COVID-19 Clin Com 09/09/20 09/09/20 09/10/20 11:05 17:25 05:34 WBC 6.6 RBC 3.18 L Hgb 10.3 L Hct 31.1 L MCV 97.8 MCH 32.4 MCHC 33.1 RDW 12.9 Plt Count 196 MPV 9.1 L Immature Gran % (Auto) Neut % (Auto) Lymph % (Auto) [place] % (Auto) Eos % (Auto) Baso % (Auto) Lymph # (Auto) [place] # (Auto) Eos # (Auto) Baso # (Auto) Abs Immat Gran (auto) Absolute Neuts (auto) Absolute Nucleated RBC 0.000 Nucleated RBC % (auto) 0.0 Sodium Potassium Chloride Carbon Dioxide Anion Gap BUN Creatinine Estim Creat Clear Calc Estimated GFR Random Glucose Fasting Glucose Lactic Acid Calcium Magnesium Total Bilirubin Direct Bilirubin AST ALT Alkaline Phosphatase Total Protein Albumin Lipase Urine Color Urine Appearance Urine pH Ur Specific [place] Urine Protein Urine Glucose (UA) Urine Ketones Urine Blood Urine Nitrite Ur Leukocyte Esterase Urine RBC Urine WBC Ur Squamous Epith Cells Urine Bacteria Urine Test Stool Occult Blood POSITIVE C. difficile Tox B Gene COVID-19 (JANIS) Negative COVID-19 Clin Com See Note 09/10/20 09/10/20 09/11/20 05:34 16:02 06:10 WBC 4.4 L RBC 3.20 L Hgb 10.3 L Hct 30.8 L MCV 96.3 MCH 32.2 MCHC 33.4 RDW 12.4 Plt Count 186 MPV 9.5 Immature Gran % (Auto) Neut % (Auto) Lymph % (Auto) [place] % (Auto) Eos % (Auto) Baso % (Auto) Lymph # (Auto) [place] # (Auto) Eos # (Auto) Baso # (Auto) Abs Immat Gran (auto) Absolute Neuts (auto) Absolute Nucleated RBC 0.000 Nucleated RBC % (auto) 0.0 Sodium 141 Potassium 3.2 L Chloride 109 H Carbon Dioxide 26 Anion Gap 9 L BUN 3 L Creatinine 0.68 Estim Creat Clear Calc 81.7 Estimated GFR > 60 Random Glucose Fasting Glucose 89 Lactic Acid Calcium 7.7 L D Magnesium 1.8 Total Bilirubin Direct Bilirubin AST ALT Alkaline Phosphatase Total Protein Albumin Lipase Urine Color Urine Appearance Urine pH Ur Specific [place] Urine Protein Urine Glucose (UA) Urine Ketones Urine Blood Urine Nitrite Ur Leukocyte Esterase Urine RBC Urine WBC Ur Squamous Epith Cells Urine Bacteria Urine Test Stool Occult Blood C. difficile Tox B Gene NEGATIVE COVID-19 (JANIS) COVID-19 Clin Com 09/11/20 06:10 WBC RBC Hgb Hct MCV MCH MCHC RDW Plt Count MPV Immature Gran % (Auto) Neut % (Auto) Lymph % (Auto) [place] % (Auto) Eos % (Auto) Baso % (Auto) Lymph # (Auto) [place] # (Auto) Eos # (Auto) Baso # (Auto) Abs Immat Gran (auto) Absolute Neuts (auto) Absolute Nucleated RBC Nucleated RBC % (auto) Sodium 140 Potassium 3.1 L Chloride 106 Carbon Dioxide 23 Anion Gap 14 BUN 3 L Creatinine 0.68 Estim Creat Clear Calc 81.7 Estimated GFR > 60 Random Glucose Fasting Glucose 91 Lactic Acid Calcium 7.9 L Magnesium Total Bilirubin Direct Bilirubin AST ALT Alkaline Phosphatase Total Protein Albumin Lipase Urine Color Urine Appearance Urine pH Ur Specific [place] Urine Protein Urine Glucose (UA) Urine Ketones Urine Blood Urine Nitrite Ur Leukocyte Esterase Urine RBC Urine WBC Ur Squamous Epith Cells Urine Bacteria Urine Test Stool Occult Blood C. difficile Tox B Gene COVID-19 (JANIS) COVID-19 Clin Com Airway Mallampati Class: II TM Dist: >3cm Neck ROM: Full Loose/Missing/Broken Teeth: No Heart: RRR Lungs: CTA Assessment and Plan Assessment Anesthesia Assessment: Anesthesia Plan Discussed and Chart Reviewed Final Anesthetic Review History of Problems with Anesthesia: No NPO: Yes ASA Class: II Final Preanesthetic Review: Meds/Allgs Chart Reviewed, Consent Obtained/Reviewed and Anes Risks/Benef Reviewed Patient Risk: Low Procedure Risk: Low Anesthetic Plan Anesthetic Plan: MAC: Disposition: Standard PACU
[2020-09-11] MEDS: Sodium Phosphate,Mono-Dibasic 133 ML ENEMA PR (13:35)
[2020-09-11 14:18] VITALS: BP 133/76; PULSE 84; RESP 16; TEMP 36.3; O2SAT 99
--- NOTE | 2020-09-11 14:25 | P.BOP_ITS ---
Brief Operative Note Date of Service: 09/11/20 Pre-op diagnosis: colitis Procedure: colonoscopy Surgeon: Juan Carlos Mejia Anesthesia: MAC Was an Facilities Maintenance Assistant used for this Procedure?: No Estimated blood loss (mL): 5 Pathology: other (bxs, ti, r colon, l colon) Condition: stable Disposition: PACU
--- NOTE | 2020-09-11 14:26 | PM.EVENT ---
Event Note Date of Service: 09/11/20 Event Note: Colonoscopy note dictated acute l side colitis with ulceration, biopsied ti and r colon look normal, also biopsied. rec: advance diet d/c abx discharge when stable f/u biopsy results
[2020-09-11 14:34] VITALS: BP 153/87; PULSE 71; RESP 16; TEMP 36.3; O2SAT 99
--- NOTE | 2020-09-11 15:26 | OP_ITS ---
SURGEON: Juan Carlos Mejia MD INDICATIONS: Colitis. PREOPERATIVE DIAGNOSIS: POSTOPERATIVE DIAGNOSIS: PROCEDURE PERFORMED: Colonoscopy to the terminal ileum with biopsy. ESTIMATED BLOOD LOSS: COMPLICATIONS: ANESTHESIA: Monitored anesthesia care. ASSISTANTS: SPECIMENS: PROCEDURE DESCRIPTION: History and physical were performed. The risks and benefits of the procedure were explained to the patient. Informed consent was obtained. The patient was placed in left lateral decubitus position. A digital rectal exam was performed and it was found to be normal. The Olympus pediatric video colonoscope was introduced into the rectum and advanced to the cecum without difficulty. The cecum was identified by transillumination, palpation, and identification of ileocecal valve. Examination was performed. The scope was removed. She tolerated the procedure well and was transferred to the recovery area in stable condition. FINDINGS: The terminal ileum showed some mildly edematous changes. There was no belkis ileitis. Biopsies were obtained from the terminal ileum. The visualized colonic mucosa showed normal appearing mucosa in the right colon and transverse colon with normal appearance and good vascular pattern. The left colon and sigmoid showed changes of colitis with loss of vascular pattern beginning in the left colon extending down to the sigmoid, where there were several areas of circumferential ulceration consistent with an acute colitis. There was no bleeding. The rectal mucosa appeared normal. Biopsies were obtained from the abnormal mucosa. Retroflexed examination was normal. IMPRESSION: Acute colitis. RECOMMENDATIONS: 1. Advanced diet. 2. Follow up the biopsy results. MD BOB Stubbs/BRISAL / [id number]
[2020-09-11] MEDS: 0.9 % Sodium Chloride Flush 3 ML SYRINGE IVFLUSH (17:31)
[2020-09-11 19:23] VITALS: BP 145/72; PULSE 93; RESP 18; TEMP 37.3; O2SAT 97
[2020-09-11] MEDS: Zolpidem Tartrate 5 MG TABLET PO (21:39)
[2020-09-12] MEDS: HYDROmorphone HCl 0.5 MG/0.5 ML SYRINGE IVPUSH ×2 (06:29→10:44)
[2020-09-12 07:27] LABS: Anion Gap 14 (12-20); Blood Urea Nitrogen 3 mg/dL (9-16); Calcium 8.5 mg/dL (8.4-10.2); Carbon Dioxide 25 mmol/L (22-29); Chloride 109 mmol/L (96-108); Creatinine Clr Calc Pharmacy 84.2; Estimated Glomerular Filt Rate > 60; Glucose Fasting 96 mg/dL (60-99); Potassium 3.7 mmol/L (3.3-5.1); Sodium 144 mmol/L (135-145)
[2020-09-12] MEDS: clonazePAM 0.5 MG TABLET PO (09:03)
--- NOTE | 2020-09-12 09:59 | P.DS_ITS ---
DS: Providers Provider Date of Service: 09/12/20 Date of admission: 09/09/20 15:35 Primary care physician: Unknown Physician Consults: 09/09/20 15:32 Consult to Gastroenterology Routine Consulting Provider: Juan Carlos Mejia Reason for consultation: pancolitis, ilietis, history of radiation DS: Diagnosis Discharge Diagnosis (1) Pancolitis: Status: Acute DS: Medications Discharge Medications Home Medications: Home Medications Medication Instructions Recorded Confirmed clonazepam 0.5 mg tablet 1 tab PO BID 09/09/20 09/09/20 norgestimate 0.25 mg-ethinyl 1 tab PO DAILY 09/09/20 09/09/20 estradiol 35 mcg tablet (Estarylla) oxycodone 5 mg tablet 1 tab PO Q8H PRN 09/09/20 09/09/20 zolpidem 12.5 mg tablet,extended 1 tab PO BEDTIME 09/09/20 09/09/20 release,multiphase DS: Summary Hospital Course Hospital Course: patient was admitted for abdominal pain due to recurrent colitis. she was given IV fluids, analgesics, and zosyn. her pain slowly improved, first tolerating liquids, then solids by time of discharge. abdomen no longer tender. cdif was negative. she was seen by GI who performed colonoscopy which showed left sided acute colitis with ulceration. differential includes infectious, vs ischemic vs inflammatory. pathology is pending. recommendations were to disconitnue antibiotics and advance diet as tolerated. patient is feeling much better and will be discharged home. she will follow up with GI as outpatient. Time Spent with Patient Time attestation: Total time spent providing and/or coordinating discharge services: Discharge coordination time: Greater than 30 minutes Quality: Stroke Does the patient have a stroke diagnosis?: No Physical Exam 2 Vital Signs: Vital Signs: Last Vital Signs Temp 99.1 F 09/11/20 19:23 Pulse 93 09/11/20 19:23 Resp 18 09/11/20 19:23 BP 145/72 H 09/11/20 19:23 Pulse Ox 97 09/11/20 19:23 Body Mass Index 21.3 General: AO X 3, no acute distress Resp: CTA bilateral CVS: S1,S2,RRR GI: soft, non tender, non distended Neuro: motor grossly intact Psych: appropriate affect DS: Data Data Completed and Pending Pending studies at discharge: Pending at discharge 09/11/20 14:03 Surgical [PTH] Routine Labs on day of discharge: Laboratory Results - last 24 hr 09/12/20 06:15 Sodium 144 Potassium 3.7 Chloride 109 H Carbon Dioxide 25 Anion Gap 14 BUN 3 L Creatinine 0.66 Estim Creat Clear Calc 84.2 Estimated GFR > 60 Fasting Glucose 96 Calcium 8.5 D Magnesium 2.0 Preliminary micro results at discharge 09/09/20 14:27 Blood Culture - Preliminary Blood - Venous No growth after 48 hours. 09/09/20 14:27 Blood Culture - Preliminary Blood - Venous No growth after 48 hours. Discharge Plan Discharge Patient Disposition: Home, Self-Care Discharge Diagnosis: colitis- infectious vs inflammatory vs ischemic Referrals: Juan Carlos Mejia [Physician] - 1 Week Physician,Unknown [Primary Care Provider] - 1 Week Discharge Medications: Continued norgestimate-ethinyl estradiol [Estarylla] 0.25-35 mg-mcg tablet 1 tab PO DAILY RF: 0 clonazepam 0.5 mg tablet 1 tab PO BID RF: 0 oxycodone 5 mg tablet 1 tab PO Q8H PRN (Reason: moderate pain) RF: 0 zolpidem 12.5 mg tablet,ext release multiphase 1 tab PO BEDTIME RF: 0 Discharge Orders: Discharge Order (Routine); Ordered 09/12/20 Ordered By: Jesus Arriaga Diet: advance to usual diet Activity on Discharge: As tolerated Stand Alone Forms: Patient Portal Discharge page Care Plan Goals: recovery Health Concerns: colitis Plan of Treatment: advance diet as tolerated, follow up with GI, follow up pathology results Assessment: see above
--- NOTE | 2020-09-12 10:05 | MHC.CM.PN ---
PATIENT IS DISCHARGED HOME WITH NO SERVICES. RN AWARE OF PLAN.
--- NOTE | 2020-09-13 15:42 | HO.POSTANES ---
Post Anesthesia Evaluation Post Anesthesia Evaluation Anesthesia: Monitored Mental Status: Awake Pain Control: Satisfactory Nausea/Vomiting: None Hydration: Adequate Anesthesia-Related Issues: No Anes. Related Issues
== END 2020-09-12 11:28 | disposition home or self-care (01) | DRG 245 ==
LOC: HO.ED 14:24 → HO.EDOVER 15:46 → HO.IMC 18:06 → HO.S3 09-10 18:05
PROVIDERS: Internal Medicine Gastroenterology; Physician Assistant; Admitting Provider Internal Medicine; Emergency Provider Emergency Medicine; PCP Internal Medicine; Visit Provider Internal Medicine
PROC: 0DJD8ZZ Inspection of Lower Intestinal Tract, Via Natural or Artificial Opening Endoscopic (ICD-10-PCS; CPT 45378; principal; 2020-09-11 14:10)
DX: K51.00 Ulcerative (chronic) pancolitis without complications (principal); F17.210 Nicotine dependence, cigarettes, uncomplicated; F41.9 Anxiety disorder, unspecified; G47.00 Insomnia, unspecified; Z20.822 Contact with and (suspected) exposure to COVID-19; Z71.6 Tobacco abuse counseling; Z79.891 Long term (current) use of opiate analgesic; Z79.899 Other long term (current) drug therapy
CPT/HCPCS: 36415; 74177; 80048; 80076; 81001; 81025; 82272; 83605; 83690; 83735; 85025; 85027; 87040; 87493; 87635; 88305; 96361; 96365; 96375; 96376; 99285; J1170; J1650; J2270; J2405; J2543; Q9967

== ENCOUNTER 2021-01-04 11:43 | Inpatient (IN) | payer MEDICAID, SELFPAY ==
--- NOTE | ~2021-01-04 | CT_ITS ---
EXAMINATION: CT ABDOMEN AND PELVIS WITH CONTRAST CLINICAL INFORMATION: Abdominal pain with history of colitis COMPARISON: CT abdomen pelvis 09/09/2020 TECHNIQUE: Multidetector volumetric images were obtained from the superior aspect of the liver through the pubic symphysis following administration 85 mL of Omnipaque 350 intravenous contrast. Sagittal and coronal reformatted images were obtained on the technologist's workstation. Oral contrast: No This CT examination was performed using dose optimization techniques as appropriate, variously including the following: *Automated exposure control *Adjustment of mA and/or kV according to patient size (this includes techniques or standardized protocols for targeted exams where dose is matched to indication/reason for exam; i.e. extremities or head) *Use of iterative reconstruction technique DLP: 381 mGy-cm FINDINGS: LUNG BASES: The visualized lung bases are unremarkable. LIVER, GALLBLADDER, AND BILIARY TREE: The liver is normal in size, shape, and attenuation. No focal hepatic lesion or biliary ductal dilatation is present. Status post cholecystectomy PANCREAS: Unremarkable. SPLEEN: Unremarkable. ADRENAL GLANDS: Unremarkable. KIDNEYS AND URETERS: The kidneys are normal in size, shape, and attenuation. No hydronephrosis, hydroureter, or calculi seen. No perinephric stranding. BLADDER: Unremarkable. GASTROINTESTINAL TRACT: The colon is grossly abnormal with edema of the rectosigmoid similar to what was present previously. However, the proximal descending colon is also involved previously and is now appears normal. There are moderately dilated loops of small bowel present the largest in the right upper quadrant measuring about 3.2 cm. No pneumatosis is seen. ABDOMINAL WALL: No significant hernia is appreciated. LYMPH NODES: No retroperitoneal lymphadenopathy. VASCULAR: Unremarkable. Some minimal calcific plaque present but no aneurysm. PELVIC VISCERA: Fallopian tube occlusion rings are present. An anteverted uterus is present. An abnormal adnexal mass is not seen but small to moderate amount of free pelvic fluid is present, increased when compared to the prior study. OSSEOUS STRUCTURES: Unremarkable. CT/CT abdomen pelvis w con IMPRESSION: 1. Edematous rectosigmoid similar to prior consistent with colitis. Previously descending colon was involved as well which is not the case at this time. Increased fluid in the cul-de-sac. 2. Small bowel dilatation may be secondary to ileus secondary to reaction from sigmoid as no definite point of obstruction is seen. Fleischner guidelines were followed.
[2021-01-04 12:53] VITALS: BP 132/82; PULSE 82; RESP 18; TEMP 36.8; O2SAT 99; BMI 20.7
--- NOTE | 2021-01-04 20:12 | ED.ABDPAIN ---
HPI - Abdominal Pain General Chief Complaint: Abdominal Pain Stated Complaint: abd pain Time Seen by Provider: 01/04/21 20:09 Source: patient Mode of arrival: ambulatory Limitations: no limitations History of Present Illness HPI narrative: 45-year-old female presents with approximately 4 days of abdominal pain and bloating. She does have a history of colitis stemming from cervical cancer treatments. States that this pain feels similar to prior pancolitis. She does not report fevers or chills but states that she has had a poor appetite and feels very bloated. She is passing stools and flatus. MD elicited complaint: abdominal pain Pertinent past history: other (Colitis, cervical cancer) Onset (ago): day(s) Pain Consistency: constant Location: diffuse Severity: severe Pain scale (0-10): 10 Quality: cramping and aching Migration to: no migration Exacerbating factors: eating and movement Relieving factors: nothing Context: history of similar episodes Associated symptoms: nausea, diarrhea, chills and anorexia Related Data Patient : No Home Medications Medication Instructions Recorded Confirmed clonazepam 0.5 mg tablet 0.5 mg PO TID 09/09/20 01/04/21 norgestimate 0.25 mg-ethinyl 1 tab PO DAILY 09/09/20 01/04/21 estradiol 35 mcg tablet (Estarylla) oxycodone 5 mg tablet 1 tab PO BID 09/09/20 01/04/21 zolpidem 12.5 mg tablet,extended 1 tab PO BEDTIME PRN 09/09/20 01/04/21 release,multiphase dicyclomine 20 mg tablet 1 tab PO BID-TID 01/04/21 01/04/21 Allergies Allergy/AdvReac Type Severity Reaction Status Date / Time guaifenesin [GUAIFENESIN] Allergy Intermediate HIVES Verified 01/04/21 12:52 metaproterenol [From Alupent] Allergy Mild PALPITATIONS, Verified 01/04/21 12:52 RASH Review of Systems Review of Systems Constitutional: No Weight loss, No Fever, positive Chills, No Night Sweats, positive Fatigue, No Malaise ENT/Mouth: No Hearing loss, No Ear Pain, No Nasal Congestion, No Sinus Pain, No Hoarseness, No sore throat, No Rhinorrhea, No Swallowing Difficulty Eyes: No Eye Pain, No Swelling, No Redness, No Foreign Body, No Discharge, No Vision Changes Cardiovascular: No Chest Pain, No SOB, No Dyspnea on Exertion, No Orthopnea, No Edema, No Palpitations Respiratory: No Cough, No Sputum, No Wheezing, No Smoke Exposure, No Dyspnea Gastrointestinal: Positive Nausea, Positive Vomiting, no Diarrhea, positive abdominal Pain, No Hematochezia, No Melena Genitourinary: no irregular bleeding, No Dysuria, No Urinary Frequency, No Hematuria, No Urinary Incontinence, No Urgency, No Flank Pain, No Urinary Flow Changes, No Hesitancy Musculoskeletal: No joint pain, No Myalgias, No Joint Swelling Skin: No Skin Lesions, No rash Neuro: No Weakness, No Numbness, No Paresthesias, No Loss of Consciousness, No Dizziness, No Headache Psych: No Anxiety/Panic, No Depression, No SI/HI/AH/VH, No Social Issues Heme/Lymph: No Bruising, No Bleeding,No Lymphadenopathy Endocrine: No Polyuria, No Polydipsia, No Temperature Intolerance Yes all other systems are reviewed and are negative Physical Exam Vital Signs: Vital Signs: Last Vital Signs Temp 98.2 F 01/04/21 22:25 Pulse 69 01/04/21 22:25 Resp 16 01/04/21 22:25 BP 129/70 01/04/21 22:25 Pulse Ox 99 01/04/21 22:25 Body Mass Index 20.7 Appearance: Alert. Oriented X3. Moderate distress. Eyes: Pupils equal, round and reactive to light. EOMI. ENT: Pharynx normal. Dry mucous membranes. Neck: Normal inspection. Neck supple. CVS: Normal heart rate and rhythm. Pulses normal. Respiratory: No respiratory distress. Breath sounds normal. Abdomen: Soft and diffusely tender. No rigidity. Skin: Skin warm and dry. Normal skin color. Normal skin turgor. Extremities: Moves all extremities against resistance. Neuro: No motor deficit. No sensory deficit. Cranial nerves 2-12 intact. Course Course Course Narrative: Apoorva.kelvin wait time 8 hours 39 minutes 45-year-old female presents with 10/10 abdominal pain consistent with prior colitis flares. Has a history of cervical cancer and radiation proctitis. Was referred to emergency department by Dr. Mejia. CT abdomen pelvis contrast pending. Will manage pain with Dilaudid. Past records reviewed. 11:[address] scan shows rectosigmoid edema consistent with colitis and small bowel dilation consistent with ileus. Discussion with hospitalist, plan of care is to admit. Discussion with patient regarding plan of care, patient agrees with plan. Consultations Consultation #1: Ignacio Time: 23:30 MDM - Abdominal Pain Differential Diagnosis Differential diagnosis: Likely abdominal pain, acute appendicitis, bowel perforation, diverticulitis, gastroenteritis, gastritis and small bowel obstruction Medical Records Attestation: I reviewed the patient's medical records. Lab Data Attestation: I reviewed the patient's lab results. Result diagrams: 01/04/21 20:42 01/04/21 21:24 Labs: Lab Results 01/04/21 01/04/21 01/04/21 Range/Units 20:42 20:42 20:42 WBC 5.1 (4.8-10.8) X10*3/uL RBC 3.99 L (4.20-5.50) X10*6/uL Hgb 13.0 (12.0-16.0) g/dl Hct 38.6 (37.0-47.0) % MCV 96.7 (80.0-98.0) fL MCH 32.6 (27.0-33.0) pg MCHC 33.7 (31.0-35.0) g/dl RDW 12.6 (11.0-16.0) % Plt Count 239 (160-400) X10*3/uL MPV 9.0 L (9.4-12.3) fL Immature Gran % (Auto) 0.2 (0.0-0.4) % Neut % (Auto) 70.0 (45-73) % Lymph % (Auto) 19.8 L (20-40) % [place] % (Auto) 8.2 (2-11) % Eos % (Auto) 1.6 (0-4) % Baso % (Auto) 0.2 (0-2) % Lymph # (Auto) 1.0 L (1.2-4.9) X10*3/uL [place] # (Auto) 0.4 (0.1-1.2) X10*3/uL Eos # (Auto) 0.1 (0.0-0.4) X10*3/uL Baso # (Auto) 0.0 (0.0-0.2) X10*3/uL Abs Immat Gran (auto) 0.01 (0.00-0.03) X10*3/uL Absolute Neuts (auto) 3.6 (2.0-8.3) x10*3/uL Absolute Nucleated RBC 0.000 (0.0-0.012) X10*3/uL Nucleated RBC % (auto) 0.0 (0.0-0.2) /100WBC Sodium (135-145) mmol/L Potassium (3.3-5.1) mmol/L Chloride (96-108) mmol/L Carbon Dioxide (22-29) mmol/L Anion Gap (12-20) BUN (9-16) mg/dL Creatinine (0.5-1.4) mg/dL Estim Creat Clear Calc Estimated GFR Random Glucose (60-115) mg/dL Lactic Acid 0.9 (0.5-2.0) mmol/L Calcium (8.4-10.2) mg/dL Total Bilirubin (0.0-1.0) mg/dL AST (5-31) U/L ALT (0-31) U/L Alkaline Phosphatase (39-117) U/L Total Protein (6.5-8.0) g/dL Albumin (3.5-5.0) g/dL Urine Color DK YELLOW Urine Appearance CLEAR Urine pH 6.5 (5.0-8.0) Ur Specific [place] 1.020 (1.005-1.025) Urine Protein NEG (NEG-TRACE) MG/DL Urine Glucose (UA) NEG (NEG) MG/DL Urine Ketones NEG (NEG) MG/DL Urine Blood NEG (NEG) Urine Nitrite NEG (NEG) Ur Leukocyte Esterase NEG (NEG) COVID-19 (JANIS) (Negative) COVID-19 Clin Com 01/04/21 01/04/21 Range/Units 20:42 21:24 WBC (4.8-10.8) X10*3/uL RBC (4.20-5.50) X10*6/uL Hgb (12.0-16.0) g/dl Hct (37.0-47.0) % MCV (80.0-98.0) fL MCH (27.0-33.0) pg MCHC (31.0-35.0) g/dl RDW (11.0-16.0) % Plt Count (160-400) X10*3/uL MPV (9.4-12.3) fL Immature Gran % (Auto) (0.0-0.4) % Neut % (Auto) (45-73) % Lymph % (Auto) (20-40) % [place] % (Auto) (2-11) % Eos % (Auto) (0-4) % Baso % (Auto) (0-2) % Lymph # (Auto) (1.2-4.9) X10*3/uL [place] # (Auto) (0.1-1.2) X10*3/uL Eos # (Auto) (0.0-0.4) X10*3/uL Baso # (Auto) (0.0-0.2) X10*3/uL Abs Immat Gran (auto) (0.00-0.03) X10*3/uL Absolute Neuts (auto) (2.0-8.3) x10*3/uL Absolute Nucleated RBC (0.0-0.012) X10*3/uL Nucleated RBC % (auto) (0.0-0.2) /100WBC Sodium 141 (135-145) mmol/L Potassium 3.4 (3.3-5.1) mmol/L Chloride 109 H (96-108) mmol/L Carbon Dioxide 23 (22-29) mmol/L Anion Gap 12 (12-20) BUN 7 L D (9-16) mg/dL Creatinine 0.71 (0.5-1.4) mg/dL Estim Creat Clear Calc 81.0 Estimated GFR > 60 Random Glucose 92 (60-115) mg/dL Lactic Acid (0.5-2.0) mmol/L Calcium 8.3 L (8.4-10.2) mg/dL Total Bilirubin 0.5 (0.0-1.0) mg/dL AST 10 (5-31) U/L ALT 9 (0-31) U/L Alkaline Phosphatase 49 (39-117) U/L Total Protein 5.8 L (6.5-8.0) g/dL Albumin 3.5 (3.5-5.0) g/dL Urine Color Urine Appearance Urine pH (5.0-8.0) Ur Specific [place] (1.005-1.025) Urine Protein (NEG-TRACE) MG/DL Urine Glucose (UA) (NEG) MG/DL Urine Ketones (NEG) MG/DL Urine Blood (NEG) Urine Nitrite (NEG) Ur Leukocyte Esterase (NEG) COVID-19 (JANIS) Negative (Negative) COVID-19 Clin Com See Note Imaging Data CT abdomen pelvis: Attestation: I personally reviewed and interpreted this imaging study as follows: Radiologist's impression: FINDINGS: LUNG BASES: The visualized lung bases are unremarkable.? LIVER, GALLBLADDER, AND BILIARY TREE: The liver is normal in size, shape, and attenuation. No focal hepatic lesion or biliary ductal dilatation is present. Status post cholecystectomy? PANCREAS: Unremarkable.? SPLEEN: Unremarkable.? ADRENAL GLANDS: Unremarkable.? KIDNEYS AND URETERS: The kidneys are normal in size, shape, and attenuation. No hydronephrosis, hydroureter, or calculi seen. No perinephric stranding. ? BLADDER: Unremarkable.? GASTROINTESTINAL TRACT: The colon is grossly abnormal with edema of the rectosigmoid similar to what was present previously. However, the proximal descending colon is also involved previously and is now appears normal. There are moderately dilated loops of small bowel present the largest in the right upper quadrant measuring about 3.2 cm. No pneumatosis is seen.? ABDOMINAL WALL: No significant hernia is appreciated.? LYMPH NODES: No retroperitoneal lymphadenopathy. VASCULAR: Unremarkable. Some minimal calcific plaque present but no aneurysm. PELVIC VISCERA: Fallopian tube occlusion rings are present. An anteverted uterus is present. An abnormal adnexal mass is not seen but small to moderate amount of free pelvic fluid is present, increased when compared to the prior study. OSSEOUS STRUCTURES: Unremarkable.? CT/CT abdomen pelvis w con IMPRESSION: 1.? Edematous rectosigmoid similar to prior consistent with colitis. Previously descending colon was involved as well which is not the case at this time. Increased fluid in the cul-de-sac. 2.? Small bowel dilatation may be secondary to ileus secondary to reaction from sigmoid as no definite point of obstruction is seen.? ? Fleischner guidelines were followed. Critical Care Time Critical Care Time Critical Care Time: Yes Total Critical Care Time: 45 Attestation: I have personally provided critical care time exclusive of time spent on separately billable procedures. Time includes review of laboratory data, radiology results, discussion with consultants, and monitoring for potential decompensation. Interventions were performed as documented. Discharge Plan Discharge Clinical Impression: Colitis, Ileus Patient Disposition: Admitted As Inpatient [facility] Past Medical History Attestation statement: The following information was validated with the patient. Source: old records reviewed Medical History Cervical cancer Cholecystectomy planned Colitis Radiation cystitis Surgical History Hx of elbow surgery Tubal ligation status Social History Social History Household Members: Significant Other and Family Housing: House Do you presently have visiting nurse or other home services: No Alcohol intake: never Patient Tobacco Use Status: Current everyday Tobacco user Tobacco use type: Cigarette Second Hand Smoke Exposure: No Advance Directives: Yes Advance Directives on File: Yes Advance Directives Date on File: 09/10/20 Patient : No service: No Current occupational status: employed
[2021-01-04] MEDS: HYDROmorphone HCl 2 MG/ML VIAL IVPUSH (20:44)
[2021-01-04] MEDS: ondansetron HCL 4 MG/2 ML VIAL IVPUSH (20:44)
[2021-01-04] MEDS: 0.9 % Sodium Chloride 1,000 ML 999 ML IVCONT (20:47)
[2021-01-04 20:49] VITALS: BP 178/102; PULSE 85; RESP 16; TEMP 37.1; O2SAT 99
[2021-01-04] MEDS: Piperacillin Sodium/Tazobactam 3.375 GM in 0.9 % Sodium Chloride 50 ML IV (20:49)
--- NOTE | 2021-01-04 20:50 | PC.NURSE ---
IV established, all labs including BCX and Covid swab obtained. Pt medicated per APR. Pt resting in bed aware of plan for CT.
[2021-01-04 20:51] LABS: MANUAL DIFF FLAG NO
--- NOTE | 2021-01-04 20:52 | PHA.MEDREC ---
Pharmacy Consult ? Medication Reconciliation Pharmacy has completed the medication reconciliation. Spoke with patient in ED.
[2021-01-04 20:53] LABS: Basophils Percent Auto 0.2 % (0-2); Eosinophils Absolute Auto 0.1 X10*3/uL (0.0-0.4); Eosinophils Percent Auto 1.6 % (0-4); Hematocrit 38.6 % (37.0-47.0); Imm Gran Abs Auto 0.01 X10*3/uL (0.00-0.03); Imm Gran Pct Auto 0.2 % (0.0-0.4); Lymphocytes Percent Auto 19.8 % (20-40); Mean Corpuscular HGB Conc 33.7 g/dl (31.0-35.0); Mean Corpuscular Hemoglobin 32.6 pg (27.0-33.0); Mean Corpuscular Volume 96.7 fL (80.0-98.0); Monocytes Absolute Auto 0.4 X10*3/uL (0.1-1.2); Monocytes Percent Auto 8.2 % (2-11); Neutrophils Absolute Auto 3.6 x10*3/uL (2.0-8.3); Platelet Count 239 X10*3/uL (160-400); Red Blood Count 3.99 X10*6/uL (4.20-5.50); Red Cell Distribution Width 12.6 % (11.0-16.0); White Blood Count 5.1 X10*3/uL (4.8-10.8)
[2021-01-04 20:57] LABS: Appearance Urine CLEAR; Color Urine DK YELLOW; Glucose Urine UA NEG (NEG); Leukocyte Esterase Urine NEG (NEG); Nitrite Urine NEG (NEG); PH 6.5 (5.0-8.0); Urine Blood NEG (NEG); Urine Ketones NEG (NEG); Urine Protein NEG (NEG-TRACE)
[2021-01-04 21:05] LABS: Lactic Acid 0.9 mmol/L (0.5-2.0)
[2021-01-04 21:09] LABS: COVID-19 Test Negative (Negative); IDNOW Serial# 9DD0AD1C
[2021-01-04 21:45] LABS: Alanine Aminotransferase 9 U/L (0-31); Albumin Level 3.5 g/dL (3.5-5.0); Alkaline Phosphatase 49 U/L (39-117); Anion Gap 12 (12-20); Aspartate Amino Transferase 10 U/L (5-31); Bilirubin Total 0.5 mg/dL (0.0-1.0); Blood Urea Nitrogen 7 mg/dL (9-16); Calcium 8.3 mg/dL (8.4-10.2); Carbon Dioxide 23 mmol/L (22-29); Chloride 109 mmol/L (96-108); Estimated Glomerular Filt Rate > 60; Glucose Random 92 mg/dL (60-115); Potassium 3.4 mmol/L (3.3-5.1); Sodium 141 mmol/L (135-145); Total Protein 5.8 g/dL (6.5-8.0)
[2021-01-04 22:25] VITALS: BP 129/70; PULSE 69; RESP 16; TEMP 36.8; O2SAT 99
[2021-01-04] MEDS: iohexoL 350 MG/ML 100 ML INFUS..BTL 85 ML IV (22:30)
--- NOTE | 2021-01-04 23:47 | P.HPHOSP_ITS ---
History of Present Illness Date of Service: 01/04/21 Chief Complaint: abd pain 45-year-old female with past medical history of cervical cancer, history of radiation proctitis, history of colitis, presents to the hospital with complaints of abdominal pain. Abdominal pain started about 4 days ago, diffuse, Cramping, 10/, nonradiating, associated with poor oral intake due to pain, no fever but has chills,, reports diarrhea on Monday, no bowel movement since Monday, and today had 1 small bowel movement in the morning, but has Passed gas since being in the ED. she called her staff field engineer and was advised to come to the ED. On arrival to the ED patient hemodynamically stable with no significant abnormal vitals Labs are significant for WBC count of 5.3, hemoglobin of 10.1, BUN of 5, labs otherwise unremarkable, Abdominal CT showed Ld Cori rectosigmoid similar to prior consistent with colitis, previously descending colon was involved as well which is not the case at this time. Small-bowel dilatation may be secondary to ileus secondary to reaction from sigmoid no definite point of obstruction is seen patient will be admitted for further management Review of Systems Review of Systems: Yes all other systems are reviewed and are negative [facility] Medical History Cervical cancer Cholecystectomy planned Colitis Radiation cystitis Pertinent family history: no history of cardiovascular disease Surgical History Hx of elbow surgery Tubal ligation status Social History Household Members: Significant Other and Family Housing: House Do you presently have visiting nurse or other home services: No Alcohol intake: never Patient Tobacco Use Status: Current everyday Tobacco user Tobacco use type: Cigarette Second Hand Smoke Exposure: No Advance Directives: Yes Advance Directives on File: Yes Advance Directives Date on File: 09/10/20 Patient : No service: No Current occupational status: employed Meds Allergies Allergy/AdvReac Type Severity Reaction Status Date / Time guaifenesin [GUAIFENESIN] Allergy Intermediate HIVES Verified 01/04/21 12:52 metaproterenol [From Alupent] Allergy Mild PALPITATIONS, Verified 01/04/21 12:52 RASH Active Medications: Current Medications Pharmacy Consult (Consult Rx Perform Med Rec) 1 each MISCELLANE ONCE PRN PRN Reason: Consult order Home Medications Medication Instructions Recorded Confirmed Last Taken Type clonazepam 0.5 mg tablet 0.5 mg PO TID 09/09/20 01/04/21 01/04/21 History norgestimate 0.25 mg-ethinyl 1 tab PO DAILY 09/09/20 01/04/21 01/04/21 History estradiol 35 mcg tablet (Estarylla) oxycodone 5 mg tablet 1 tab PO BID 09/09/20 01/04/21 01/04/21 History zolpidem 12.5 mg tablet,extended 1 tab PO BEDTIME PRN 09/09/20 01/04/21 01/03/21 History release,multiphase dicyclomine 20 mg tablet 1 tab PO BID-TID 01/04/21 01/04/21 01/04/21 History Physical Exam Vital Signs and Narrative: Vital Signs: Last Vital Signs Temp 98.2 F 01/04/21 22:25 Pulse 69 01/04/21 22:25 Resp 16 01/04/21 22:25 BP 129/70 01/04/21 22:25 Pulse Ox 99 01/04/21 22:25 Body Mass Index 20.7 Const: General: cooperative and no acute distress Orientation/consciousness: patient oriented x3 Eyes: General: appearance normal, both eyes and all related structures Pupils: Equal, round and reactive pupils present Resp: Effort & Inspection: normal respiratory effort Auscultation: clear to auscultation bilaterally Cardio: Rate: regular rate Rhythm: regular rhythm GI: Other: diffuse tenderness Palpation (GI): Soft to palpation Skin: General skin exam: no rashes or lesions noted Neuro: General: patient oriented x3 Cranial nerves: Yes Equal, round and reactive pupils present Cognition (Neuro): normal cognition Extrem: General: Yes normal to inspection and Yes no pedal edema Results Labs CBC and Chem 7: 01/05/21 04:51 01/05/21 04:51 Labs: Laboratory Results - last 24 hr 01/04/21 01/04/21 01/04/21 20:42 20:42 20:42 MCV 96.7 MCH 32.6 MCHC 33.7 RDW 12.6 Plt Count 239 MPV 9.0 L Immature Gran % (Auto) 0.2 Neut % (Auto) 70.0 Lymph % (Auto) 19.8 L [place] % (Auto) 8.2 Eos % (Auto) 1.6 Baso % (Auto) 0.2 Lymph # (Auto) 1.0 L [place] # (Auto) 0.4 Eos # (Auto) 0.1 Baso # (Auto) 0.0 Abs Immat Gran (auto) 0.01 Absolute Neuts (auto) 3.6 Absolute Nucleated RBC 0.000 Nucleated RBC % (auto) 0.0 Anion Gap Estim Creat Clear Calc Estimated GFR Random Glucose Lactic Acid 0.9 Calcium Total Bilirubin AST ALT Alkaline Phosphatase Total Protein Albumin Urine Color DK YELLOW Urine Appearance CLEAR Urine pH 6.5 Ur Specific [place] 1.020 Urine Protein NEG Urine Glucose (UA) NEG Urine Ketones NEG Urine Blood NEG Urine Nitrite NEG Ur Leukocyte Esterase NEG COVID-19 (JANIS) COVID-19 Clin Com 01/04/21 01/04/21 20:42 21:24 MCV MCH MCHC RDW Plt Count MPV Immature Gran % (Auto) Neut % (Auto) Lymph % (Auto) [place] % (Auto) Eos % (Auto) Baso % (Auto) Lymph # (Auto) [place] # (Auto) Eos # (Auto) Baso # (Auto) Abs Immat Gran (auto) Absolute Neuts (auto) Absolute Nucleated RBC Nucleated RBC % (auto) Anion Gap 12 Estim Creat Clear Calc 81.0 Estimated GFR > 60 Random Glucose 92 Lactic Acid Calcium 8.3 L Total Bilirubin 0.5 AST 10 ALT 9 Alkaline Phosphatase 49 Total Protein 5.8 L Albumin 3.5 Urine Color Urine Appearance Urine pH Ur Specific [place] Urine Protein Urine Glucose (UA) Urine Ketones Urine Blood Urine Nitrite Ur Leukocyte Esterase COVID-19 (JANIS) Negative COVID-19 Clin Com See Note Imaging Radiologist's Impressions: Impressions Abdomen/Pelvis CT 01/04/21 20:16 IMPRESSION: 1. Edematous rectosigmoid similar to prior consistent with colitis. Previously descending colon was involved as well which is not the case at this time. Increased fluid in the cul-de-sac. 2. Small bowel dilatation may be secondary to ileus secondary to reaction from sigmoid as no definite point of obstruction is seen. Fleischner guidelines were followed. Assessment and Plan (1) Colitis: Status: Acute (2) Ileus: Status: Acute 45-year-old female with past medical history of radiation proctitis, as well as radiation cystitis secondary to radiation for cervical cancer presents to the hospital with abdominal pain found to have acute colitis # acute colitis - afebrile, no leukocytosis, no diarrhea - will start her on broad-spectrum antibiotic - bowel rest - GI consulted # ileus on CT of the abdomen - patient has been moving her bowels, no nausea or vomiting - passing gas - most likely secondary to acute colitis as above - bowel rest - monitor - will hold off on consulting general surgery at this time # anxiety - continue clonazepam # insomnia - continue zolpidem DVT prophylaxis: Lovenox Quality Stroke Does the patient have a stroke diagnosis?: No VTE Prior VTE?: No VTE Risk Level:: Medical - moderate - high VTE Device Contraindication: Treatment Not Indicated VTE Drug Contraindication: N/A - Med Ordered
[2021-01-04] MEDS: HYDROmorphone HCl 1 MG/ML SYRINGE IVPUSH (23:51)
--- NOTE | 2021-01-04 23:54 | PC.NURSE ---
Pt reports return of pain, reports 9/10 pain to abdomen. Pt medicated per MAR with Dilaudid. Pt resting in bed at this time, aware of plan to admit.
--- NOTE | 2021-01-05 02:16 | PC.NURSE ---
Flagyl and Levaquin remain unverified at this time despite being ordered @ 0127. This RN contacting pharmacy.
[2021-01-05] MEDS: oxyCODONE HCl Immed Release 5 MG TABLET PO ×3 (02:35→21:59)
[2021-01-05] MEDS: clonazePAM 0.5 MG TABLET PO ×4 (02:36→21:59)
[2021-01-05] MEDS: 0.9 % Sodium Chloride Flush 3 ML SYRINGE IVFLUSH ×3 (02:37→21:58)
[2021-01-05] MEDS: Zolpidem Tartrate 5 MG TABLET PO ×2 (02:40→21:59)
[2021-01-05] MEDS: metroNIDAZOLE/NS 500 MG/100 ML PIGGYBACK 100 MG IV ×3 (02:40→19:46)
[2021-01-05 02:48] VITALS: BP 139/81; PULSE 68; RESP 16; O2SAT 96
--- NOTE | 2021-01-05 02:50 | PC.NURSE ---
Pt medicated per MAR, resting in POC. Call quinones within reach. VSS. Continue to monitor.
[2021-01-05] MEDS: Lactated Ringers 1,000 ML 100 ML IVCONT ×2 (04:00→14:19)
[2021-01-05 05:01] LABS: MANUAL DIFF FLAG NO
[2021-01-05 05:04] LABS: Basophils Percent Auto 0.4 % (0-2); Eosinophils Absolute Auto 0.2 X10*3/uL (0.0-0.4); Hematocrit 30.9 % (37.0-47.0); Hemoglobin 10.1 g/dl (12.0-16.0); Imm Gran Abs Auto 0.01 X10*3/uL (0.00-0.03); Imm Gran Pct Auto 0.2 % (0.0-0.4); Lymphocytes Absolute Auto 1.2 X10*3/uL (1.2-4.9); Mean Corpuscular HGB Conc 32.7 g/dl (31.0-35.0); Mean Corpuscular Hemoglobin 31.9 pg (27.0-33.0); Mean Corpuscular Volume 97.5 fL (80.0-98.0); Mean Platelet Volume 9.2 fL (9.4-12.3); Monocytes Absolute Auto 0.5 X10*3/uL (0.1-1.2); Monocytes Percent Auto 9.2 % (2-11); Neutrophils Absolute Auto 3.5 x10*3/uL (2.0-8.3); Neutrophils Percent Auto 65.2 % (45-73); Platelet Count 194 X10*3/uL (160-400); Red Blood Count 3.17 X10*6/uL (4.20-5.50); Red Cell Distribution Width 12.5 % (11.0-16.0); White Blood Count 5.3 X10*3/uL (4.8-10.8)
[2021-01-05 05:28] LABS: Anion Gap 8 (12-20); Blood Urea Nitrogen 5 mg/dL (9-16); Calcium 7.8 mg/dL (8.4-10.2); Carbon Dioxide 27 mmol/L (22-29); Chloride 108 mmol/L (96-108); Creatinine Clr Calc Pharmacy 79.9; Estimated Glomerular Filt Rate > 60; Glucose Random 92 mg/dL (60-115); Potassium 3.5 mmol/L (3.3-5.1); Sodium 139 mmol/L (135-145)
--- NOTE | 2021-01-05 06:05 | PC.NURSE ---
Pt refusing Lovenox, states I don't need that. I don't like needles and I really don't want that!
[2021-01-05 08:38] VITALS: BP 125/78; PULSE 72; RESP 18; O2SAT 98
[2021-01-05] MEDS: Morphine Sulfate 4 MG/ML CARTRIDGE IVPUSH (09:31)
--- NOTE | 2021-01-05 10:00 | MHC.CM.PN ---
Attempted to meet [facility] patient in regards to discharge planning. Patient currently on the telephone. Will attempt to meet again. Continue to monitor for d/c needs.
--- NOTE | 2021-01-05 10:03 | P.PNIM_ITS ---
Subjective Subjective Date of Service: 01/05/21 Review of Systems Follow-up colitis Still with 7/10 abdominal pain Denies nausea, vomiting, diarrhea All other systems are reviewed and are negative Physical Exam Vital Signs: Vital Signs: Last Vital Signs Temp 98.2 F 01/04/21 22:25 Pulse 72 01/05/21 08:38 Resp 18 01/05/21 08:38 BP 125/78 01/05/21 08:38 Pulse Ox 98 01/05/21 08:38 Body Mass Index 20.7 Appearing in no acute distress lung sounds are clear to auscultation heart regular rate rhythm, clear S1, S2 positive bowel sounds, epigastric discomfort, lower abdominal discomfort neuro patient is alert x3, no focal deficits Objective Data Active Medications Acetaminophen (Acetaminophen 325 Mg Tablet) 650 mg PO Q6H PRN PRN Reason: Pain, Mild (Pain Scale 1-3) Clonazepam (Clonazepam 0.5 Mg Tablet) 0.5 mg PO TID [facility] Last Admin: 01/05/21 08:46 Dose: 0.5 mg Documented by: JOE Enoxaparin Sodium (Enoxaparin Sodium 40 Mg/0.4 Ml Syringe) 40 mg SUBCUT Q24H [facility] Last Admin: 01/05/21 06:05 Dose: Not Given Documented by: UMU Non-Admin Reason: Patient Refused Ethinyl Estradiol/Norgestimate (Norgestimat/Eth Est 0.25/0.035 Tablet) 1 tab PO DAILY [facility] Metronidazole (Flagyl) 500 mg in 100 mls @ 100 mls/hr IV Q8H [facility] Lactated Ringer's (Lr) 1,000 mls @ 100 mls/hr IVCONT .Q10H [facility] Last Admin: 01/05/21 04:00 Dose: 100 mls/hr Documented by: UMU Levofloxacin (Levaquin) 750 mg in 150 mls @ 100 mls/hr IV Q24H [facility] Morphine Sulfate (Morphine Sulfate 4 Mg/Ml Cartridge) 4 mg IVPUSH Q4H PRN; Protocol PRN Reason: Pain, Severe (Pain Scale 7-10) Last Admin: 01/05/21 09:31 Dose: 4 mg Documented by: THOR Ondansetron HCl (Ondansetron Hcl 4 Mg/2 Ml Vial) 4 mg IVPUSH Q8H PRN PRN Reason: Nausea and Vomiting Oxycodone HCl (Oxycodone Hcl Immed Release 5 Mg Tablet) 5 mg PO BID [facility] Last Admin: 01/05/21 08:34 Dose: 5 mg Documented by: JOE Pharmacy Consult (Consult Rx Perform Med Rec) 1 each MISCELLANE ONCE PRN PRN Reason: Consult order Sodium Chloride (0.9 % Sodium Chloride Flush 3 Ml Syringe) 3 ml IVFLUSH QSHIFT [facility] Last Admin: 01/05/21 08:44 Dose: 3 ml Documented by: JOE Zolpidem Tartrate (Zolpidem Tartrate 5 Mg Tablet) 5 mg PO BEDTIME PRN PRN Reason: Insomnia Last Admin: 01/05/21 02:40 Dose: 5 mg Documented by: UMU Labs CBC & Chem 7: 01/05/21 04:51 01/05/21 04:51 Labs: Laboratory Results - last 24 hr 01/04/21 01/04/21 01/04/21 20:42 20:42 20:42 MCV 96.7 MCH 32.6 MCHC 33.7 RDW 12.6 Plt Count 239 MPV 9.0 L Immature Gran % (Auto) 0.2 Neut % (Auto) 70.0 Lymph % (Auto) 19.8 L Mcpherson % (Auto) 8.2 Eos % (Auto) 1.6 Baso % (Auto) 0.2 Lymph # (Auto) 1.0 L Mcpherson # (Auto) 0.4 Eos # (Auto) 0.1 Baso # (Auto) 0.0 Abs Immat Gran (auto) 0.01 Absolute Neuts (auto) 3.6 Absolute Nucleated RBC 0.000 Nucleated RBC % (auto) 0.0 Anion Gap Estim Creat Clear Calc Estimated GFR Random Glucose Lactic Acid 0.9 Calcium Total Bilirubin AST ALT Alkaline Phosphatase Total Protein Albumin Urine Color DK YELLOW Urine Appearance CLEAR Urine pH 6.5 Ur Specific [place] 1.020 Urine Protein NEG Urine Glucose (UA) NEG Urine Ketones NEG Urine Blood NEG Urine Nitrite NEG Ur Leukocyte Esterase NEG COVID-19 (JANIS) COVID-19 Clin Com 01/04/21 01/04/21 01/05/21 20:42 21:24 04:51 MCV 97.5 MCH 31.9 MCHC 32.7 RDW 12.5 Plt Count 194 MPV 9.2 L Immature Gran % (Auto) 0.2 Neut % (Auto) 65.2 Lymph % (Auto) 22.0 Mcpherson % (Auto) 9.2 Eos % (Auto) 3.0 Baso % (Auto) 0.4 Lymph # (Auto) 1.2 Mcpherson # (Auto) 0.5 Eos # (Auto) 0.2 Baso # (Auto) 0.0 Abs Immat Gran (auto) 0.01 Absolute Neuts (auto) 3.5 Absolute Nucleated RBC 0.000 Nucleated RBC % (auto) 0.0 Anion Gap 12 Estim Creat Clear Calc 81.0 Estimated GFR > 60 Random Glucose 92 Lactic Acid Calcium 8.3 L Total Bilirubin 0.5 AST 10 ALT 9 Alkaline Phosphatase 49 Total Protein 5.8 L Albumin 3.5 Urine Color Urine Appearance Urine pH Ur Specific [place] Urine Protein Urine Glucose (UA) Urine Ketones Urine Blood Urine Nitrite Ur Leukocyte Esterase COVID-19 (JANIS) Negative COVID-19 Clin Com See Note 01/05/21 04:51 MCV MCH MCHC RDW Plt Count MPV Immature Gran % (Auto) Neut % (Auto) Lymph % (Auto) Mcpherson % (Auto) Eos % (Auto) Baso % (Auto) Lymph # (Auto) Mcpherson # (Auto) Eos # (Auto) Baso # (Auto) Abs Immat Gran (auto) Absolute Neuts (auto) Absolute Nucleated RBC Nucleated RBC % (auto) Anion Gap 8 L Estim Creat Clear Calc 79.9 Estimated GFR > 60 Random Glucose 92 Lactic Acid Calcium 7.8 L D Total Bilirubin AST ALT Alkaline Phosphatase Total Protein Albumin Urine Color Urine Appearance Urine pH Ur Specific [place] Urine Protein Urine Glucose (UA) Urine Ketones Urine Blood Urine Nitrite Ur Leukocyte Esterase COVID-19 (JANIS) COVID-19 Clin Com Assessment and Plan (1) Colitis: Status: Acute (2) Ileus: Status: Acute (3) Anxiety: Status: Acute Assessment and Plan: 45-year-old female with past medical history of radiation proctitis, as well as 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 Afebrile, no leukocytosis, no diarrhea, passing flatus Continue Flagyl and Levaquin GI consult IV fluids pain management bowel rest Anxiety Continue clonazepam Insomnia Continue zolpidem DVT prophylaxis with Lovenox Full code Attending Dr. Oliva Quality Stroke Does the patient have a stroke diagnosis?: No VTE Prior VTE?: No VTE Risk Level:: Medical - moderate - high VTE Device Contraindication: Treatment Not Indicated VTE Drug Contraindication: N/A - Med Ordered
--- NOTE | 2021-01-05 10:27 | PC.NURSE ---
DR MCCAULEY TO BEDSIDE AND PT NOW DRINKING CLEAR LIQUIDS, MILAD MONICA GIVEN, NAD
--- NOTE | 2021-01-05 12:24 | MHC.CM.PN ---
EMR REVIEWED, PT ADMITTED W/ILEUS, CM MET W/PT WHO REPORTS SHE LIVES W/[place], 4 CHILDREN AND HER MOTHER, PT IS INDEPENDENT W/ALL CARE, NO DME AND NO HOME SERVICES, PT VERIFIES PCP SARAH PAEZ W/[facility], PFIZER VACCINE COMPLETED IN , REPORTS HER AUNT SHANTI PATTERSON [phone] IS HER HEALTH CARE AGENT AND ANABEL FITCH [phone] IS HER ALTERNATE, COPY HAS BEEN REQUESTED. PT REPORTS SHE MET W/GI PROVIDER AND THAT SHE MAY BE ABLE TO D/C TOMORROW 01/06/21, PT REPORTS SHE WOULD LIKE TO D/C [facility]. D/C PLAN: HOME NO SERVICES, [place] FOR TRANSPORT
[2021-01-05] MEDS: Mesalamine 400 MG CAP.DRTAB. 800 MG PO ×2 (14:20→21:59)
[2021-01-05] MEDS: HYDROmorphone HCl 0.5 MG/0.5 ML SYRINGE IVPUSH (16:53)
[2021-01-05 19:22] VITALS: BP 122/67; PULSE 77; RESP 20; TEMP 36.4; O2SAT 97
[2021-01-05 19:49] VITALS: BMI 20.7
[2021-01-05] MEDS: levoFLOXacin/D5W 750 MG/150 ML PIGGYBACK 100 MG IV (21:58)
--- NOTE | 2021-01-05 22:19 | CONS_ITS ---
DATE OF SERVICE: 01/05/2021 REFERRING PHYSICIAN: Dr. Pierre REASON FOR CONSULTATION: Abdominal pain, history of colitis and abnormal CT scan. HISTORY OF PRESENT ILLNESS: The patient is a pleasant 45-year-old woman known to me from recent evaluation. She was seen in the hospital in September and at that time, was diagnosed with colitis. She underwent colonoscopy on September 11, which showed mildly edematous changes of the terminal ileum, normal mucosa in the right colon and transverse colon and changes of colitis in the left colon and sigmoid colon consistent with an acute colitis. Biopsies at that time were interpreted as showing mild active colitis, which was nonspecific, but thought to be a resolving acute infectious colitis based on her clinical presentation. She was initially treated with antibiotics, which were discontinued while in the hospital. 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 She presented to the emergency room yesterday with complaints of recurrent abdominal pain with 1 episode of diarrhea the day after Thanksgiving and no bowel movement since. There were no ill contacts, fevers, chills, nausea or vomiting. Evaluation in the ER included lab work showing a white blood cell count of 5.1, and unremarkable chemistries. Imaging with CT scanning is reviewed and this is interpreted as showing edema of the rectal sigmoid, which she had previously, but improvement in the changes that had been seen in the previous CAT scan of the descending colon. Small bowel loops were dilated consistent with possible ileus, but no obstruction was identified. She was given intravenous antibiotics and admitted to the hospital. PAST MEDICAL HISTORY: 1. Recent colitis episode as above. 2. Cervical cancer and status post radiation with history of proctitis. 3. Anxiety. 4. Eczema. 5. Radiation cystitis. CURRENT MEDICATIONS: Her current medication list is reviewed in the chart. She is on chronic narcotics. ALLERGIES: REVIEWED. FAMILY HISTORY: This is reviewed with the patient and is noncontributory. SOCIAL HISTORY: There is tobacco use. She denies alcohol and drug use. REVIEW OF SYSTEMS: SKIN: No pruritus. HEENT: Negative. CARDIOPULMONARY: No shortness of breath or chest pain. GASTROINTESTINAL: As above. GENITOURINARY: Negative. NEUROPSYCHIATRIC: Negative. PAST SURGICAL HISTORY: Includes tubal ligation, cholecystectomy, and cervical surgery. PHYSICAL EXAMINATION: GENERAL: Shows a pleasant female, lying comfortably in bed. VITAL SIGNS: Reviewed in the electronic medical record and are stable. SKIN: Anicteric. HEENT: Shows no scleral icterus. NECK: Without lymphadenopathy or thyromegaly. LUNGS: Clear. HEART: Shows a regular rate and rhythm. S1, S2. No murmur. ABDOMEN: Soft. There is diffuse tenderness to palpation mainly in the upper abdomen. She does have a heating pad that she has been using. There is no guarding or rebound. Bowel sounds are present. No organomegaly is noted. EXTREMITIES: Without edema. LABORATORY DATA: Laboratory data and CT scanning are reviewed. IMPRESSION: Abdominal pain. At this time, she appears to be improving with less pain by her report than what she had on admission. Her abdominal exam is reassuring and that her abdomen is soft and she seems somewhat anxious regarding palpation and appears to have tenderness out of proportion to what would be expected based on her findings. Her CT scan is actually reassuring as well since she has had improvement in the descending colitis. I would recommend obtaining stool specimens. She is hungry and would like to try food, so I think she can be advanced to a clear liquid diet. She may need followup colonoscopy as an outpatient for reassessment of her colitis, but I would not recommend that at this time, if her stool specimens are negative, then her antibiotics can be discontinued. I would recommend an empiric trial of mesalamine and restarting her dicyclomine, which has been on an outpatient basis in case there is a component of postinfectious IBS. This was discussed with the patient. Thanks for asking me to see her. I will follow her in the hospital with you. MD BOB Stubbs/SENIA / [phone]
[2021-01-05 23:14] VITALS: BP 120/77; PULSE 84; RESP 20; TEMP 37.3; O2SAT 98
[2021-01-06] MEDS: Lactated Ringers 1,000 ML 100 ML IVCONT (00:20)
[2021-01-06] MEDS: metroNIDAZOLE/NS 500 MG/100 ML PIGGYBACK 100 MG IV (01:42)
[2021-01-06 03:36] VITALS: BP 106/60; PULSE 80; RESP 18; TEMP 36.4; O2SAT 98
[2021-01-06 07:21] VITALS: BP 132/64; PULSE 77; RESP 18; TEMP 36.7; O2SAT 97
[2021-01-06] MEDS: clonazePAM 0.5 MG TABLET PO (08:09)
[2021-01-06] MEDS: Mesalamine 400 MG CAP.DRTAB. 800 MG PO (08:09)
[2021-01-06] MEDS: oxyCODONE HCl Immed Release 5 MG TABLET PO (08:09)
--- NOTE | 2021-01-06 10:09 | P.DS_ITS ---
DS: Providers Provider Date of Service: 01/06/21 Date of admission: 01/04/21 23:40 Primary care physician: Edmundo Burnham MD Consults: 01/05/21 05:54 Consult to Gastroenterology Routine Consulting Provider: Juan Carlos Willams Reason for consultation: colitis- Dr. willams pt Has provider been notified: No DS: Diagnosis Discharge Diagnosis (1) Colitis: Status: Acute (2) Ileus: Status: Acute (3) Anxiety: Status: Acute DS: Summary Hospital Course Hospital Course: HPI from admitting provider: 45-year-old female with past medical history of cervical cancer, history of radiation proctitis, history of colitis, presents to the hospital with complaints of abdominal pain.? Abdominal pain started about 4 days ago, di ffuse,? Cramping, 11/15, nonradiating, associated with? poor oral intake due to pain, no fever but has chills,, reports diarrhea on Monday, no bowel movement since Monday, and today had 1 small bowel movement in the morning, but has? Passed gas since being in the ED. ?she called her voice engineer and was advised to come to the ED. On arrival to the ED patient hemodynamically stable with no significant abnormal vitals Labs are significant for WBC count of 5.3, hemoglobin of 10.1, BUN of 5, labs otherwise unremarkable, Abdominal CT showed? Ld [place] rectosigmoid similar to prior consistent with colitis, previously descending colon was involved as well which is not the case at this time.? Small-bowel dilatation may be secondary to ileus secondary to reaction from sigmoid no? definite point of obstruction is? seen ?patient will be admitted for further management Hospital Course: Started on intravenous fluid and IV antibiotics. She was given bowel rest. She is a evaluated by Gastroenterology. Ultimately she was started on clear liquid diet and she is tolerating this. She has no further abdominal pain, nausea and vomiting. Her abdominal distension has improved. She has not moved her bowels as of yet, but she is eager for discharge and so will discharge her. Patient did have a drop in her h/h from the admission, but her admission h/h likely represented hemoconcentration as her current levels are at her baseline. Gastroenterology recommended recommended starting Mesalamine and to continue her dicyclomine. She will be treated with 3 more days of oral antibiotics emp irically for possible infectious colitis. She is to f/u in the GI clinic. Time Spent with Patient Time attestation: Total time spent providing and/or coordinating discharge services: Discharge coordination time: Greater than 30 minutes Quality: Stroke Does the patient have a stroke diagnosis?: No Physical Exam Vital Signs: Vital Signs: Last Vital Signs Temp 98.0 F 01/06/21 07:21 Pulse 77 01/06/21 07:21 Resp 18 01/06/21 07:21 BP 132/64 01/06/21 07:21 Pulse Ox 97 01/06/21 07:21 Body Mass Index 20.7 Const: Other: General - no acute distress, appears comfortable Cardiovascular - regular rate and rhythm, S1-S2 Lungs - normal respiratory effort, clear to auscultation bilaterally, no wheezing Abdomen - soft, nontender, no rebound or guarding Extremities - no edema bilaterally Neuro - awake and alert, no focal deficits DS: Data Data Completed and Pending Completed studies during hospitalization [Text1]: Procedures Excision of Ileum, Via Natural or Artificial Opening Endoscopic, Diagnostic (09/09/20) Labs on day of discharge: Preliminary micro results at discharge 01/04/21 20:42 Blood Culture - Preliminary Blood - Venous No growth after 24 hours. 01/04/21 20:42 Blood Culture - Preliminary Blood - Venous No growth after 24 hours. Discharge Plan Discharge Patient Disposition: Home, Self-Care Discharge Diagnosis: Colitis Referrals: Edmundo Burnham MD [Primary Care Provider] - 1 Week Juan Carlos Willams [Physician] - 1 Week Discharge Medications: New mesalamine [Delzicol] 400 mg Capsule (With Del Rel Tablets) 800 mg PO TID Qty: 90 RF: 0 levofloxacin 500 mg tablet 500 mg PO Q24H Qty: 3 RF: 0 metronidazole 500 mg tablet 500 mg PO Q8H Qty: 9 RF: 0 Continued norgestimate-ethinyl estradiol [Estarylla] 0.25-35 mg-mcg tablet 1 tab PO DAILY RF: 0 clonazepam 0.5 mg tablet 0.5 mg PO TID RF: 0 oxycodone 5 mg tablet 1 tab PO BID RF: 0 zolpidem 12.5 mg tablet,ext release multiphase 1 tab PO BEDTIME PRN (Reason: Sleep) RF: 0 dicyclomine 20 mg tablet 1 tab PO BID-TID RF: 0 Discharge Orders: Discharge Order (Routine); Ordered 01/06/21 Ordered By: Elder Oliva Diet: advance to usual diet Activity on Discharge: As tolerated Stand Alone Forms: Patient Portal Discharge page Care Plan Goals: To stay healthy and out of the hospital. Health Concerns: Colitis Plan of Treatment: Finish 3 more days of antibiotics. Start taking Mesalamine three times a day Follow up with Dr. Willams Assessment: 45 yo F with radiation colitis who presented with a flare up. Treated with IVF/ IV antibiotics with improvement. Seen by GI and started on Mesalamine. Will f/u with Dr. Willams for further care.
--- NOTE | 2021-01-06 10:18 | MHC.CM.PN ---
Patient has been medically cleared for dc to home today, no services.
== END 2021-01-06 11:10 | disposition home or self-care (01) | DRG 249 ==
LOC: HO.ED 23:51 → HO.EDOVER 01-05 00:09 → HO.IMC 01-05 17:28
PROVIDERS: Nurse Practitioner Family; Admitting Provider Internal Medicine; Emergency Provider Emergency Medicine Emergency Medical Services; PCP Internal Medicine; Visit Provider Physician Assistant Medical
DX: K52.0 Gastroenteritis and colitis due to radiation (principal); K56.7 Ileus, unspecified; F41.9 Anxiety disorder, unspecified; Z85.41 Personal history of malignant neoplasm of cervix uteri; G47.00 Insomnia, unspecified; Z20.822 Contact with and (suspected) exposure to COVID-19; F17.210 Nicotine dependence, cigarettes, uncomplicated; Z71.6 Tobacco abuse counseling; Z79.3 Long term (current) use of hormonal contraceptives; Z79.899 Other long term (current) drug therapy
CPT/HCPCS: 36415; 74177; 80048; 80053; 81003; 83605; 85025; 87040; 87635; 96361; 96365; 96375; 96376; 99284; 99291; J1170; J1956; J2270; J2405; J2543; Q9967

== ENCOUNTER 2021-02-20 10:55 | Emergency (ER) | payer MEDICAID, SELFPAY ==
--- NOTE | ~2021-02-20 | CT_ITS ---
EXAMINATION: CT ABDOMEN AND PELVIS WITH CONTRAST CLINICAL INFORMATION: Abdominal pain COMPARISON: 01/04/2021 TECHNIQUE: Multidetector volumetric images were obtained from the superior aspect of the liver through the pubic symphysis following administration 85 mL of Omnipaque 350 intravenous contrast. Sagittal and coronal reformatted images were obtained on the technologist's workstation. Oral contrast: No This CT examination was performed using dose optimization techniques as appropriate, variously including the following: *Automated exposure control *Adjustment of mA and/or kV according to patient size (this includes techniques or standardized protocols for targeted exams where dose is matched to indication/reason for exam; i.e. extremities or head) *Use of iterative reconstruction technique DLP: 379 mGy-cm FINDINGS: LUNG BASES: The visualized lung bases are unremarkable. LIVER, GALLBLADDER, AND BILIARY TREE: The liver is normal in size, shape, and attenuation. No focal hepatic lesion or biliary ductal dilatation is present. Status post cholecystectomy. PANCREAS: Unremarkable. SPLEEN: Unremarkable. ADRENAL GLANDS: Unremarkable. KIDNEYS AND URETERS: The kidneys are normal in size, shape, and attenuation. No hydronephrosis, hydroureter, or calculi seen. No perinephric stranding. BLADDER: Unremarkable. GASTROINTESTINAL TRACT: Similar to previous. Thickening for a long length of the sigmoid wall. Mild free fluid. There is also felt to be mucosal thickening of a fairly long length of small bowel loop in the right-sided pelvis. Overall nonobstructing bowel pattern. ABDOMINAL WALL: No significant hernia is appreciated. LYMPH NODES: Normal. VASCULAR: Unremarkable. PELVIC VISCERA: Free fluid in the deep pelvis. The endometrial canal appears widened. OSSEOUS STRUCTURES: Probable scattered areas of bone islands. CT/CT abdomen pelvis w con IMPRESSION: Once again thickening of the sigmoid consistent with colitis. Similar to previous. Infectious versus noninfectious etiology There is, now however thickening of a long length of ileum suggesting enteritis infectious versus noninfectious etiology Fleischner guidelines were followed.
--- NOTE | ~2021-02-20 | XR_ITS ---
EXAMINATION: XR CHEST CLINICAL INFORMATION: Cough. COMPARISON: Chest 03/08/2019 TECHNIQUE: Frontal view of the chest was obtained. FINDINGS: No significant abnormality is noted involving the heart, lungs, mediastinum, bony thorax or soft tissues. XR/XR chest 1V IMPRESSION: Unremarkable chest examination.
[2021-02-20 11:10] VITALS: BP 103/71; PULSE 102; RESP 18; TEMP 37.6; O2SAT 98; BMI 20.3
--- NOTE | 2021-02-20 18:06 | ED_ITS ---
HPI - Abdominal Pain General Chief Complaint: Abdominal Pain Stated Complaint: colitis flare fever Time Seen by Provider: 02/20/21 17:42 Source: patient Limitations: no limitations History of Present Illness HPI narrative: This is a 45-year-old female with a history of colitis, whose 5 days ago had tested positive for COVID and he was quarantine upstairs. The patient's mother is also sick and in the hospital here, actually in the emergency department and has also tested positive for COVID. Patient reports that she has had abdominal pain, nausea and diarrhea for few days, which feels similar to her prior colitis. She had colitis last September and had a colonoscopy showing ulceration, and had a recurrent episode in January. She is on mesalamine. She was also put on dicyclomine for possible component of irritable bowel syndrome. The patient reports a fever to about 101. She has had mild intermittent cough, mild rhinorrhea. She denies any blood in her stool. She has had about 3 episodes of diarrhea today. She has had nausea but no vomiting. She has been drinking Pedialyte and states she has been urinating normally.. She denies any dysuria or urinary frequency Related Data Home Medications Medication Instructions Recorded Confirmed clonazepam 0.5 mg tablet 0.5 mg PO TID 09/09/20 01/04/21 norgestimate 0.25 mg-ethinyl 1 tab PO DAILY 09/09/20 01/04/21 estradiol 35 mcg tablet (Estarylla) oxycodone 5 mg tablet 1 tab PO BID 09/09/20 01/04/21 zolpidem 12.5 mg tablet,extended 1 tab PO BEDTIME PRN 09/09/20 01/04/21 release,multiphase dicyclomine 20 mg tablet 1 tab PO BID-TID 01/04/21 01/04/21 Previous Rx's Medication Instructions Recorded levofloxacin 500 mg tablet 500 mg PO Q24H #3 tab 01/06/21 mesalamine 400 mg capsule (with 800 mg PO TID #90 ea 01/06/21 delayed release tablets inside) (Delzicol) metronidazole 500 mg tablet 500 mg PO Q8H #9 tab 01/06/21 ciprofloxacin HCl 500 mg tablet 500 mg PO BID 6 Days #12 tab 02/20/21 (Cipro) metronidazole 500 mg tablet 500 mg PO Q8H #20 tab 02/20/21 ondansetron 4 mg disintegrating 4 mg PO Q6H PRN 3 Days #10 tab 02/20/21 tablet Allergies Allergy/AdvReac Type Severity Reaction Status Date / Time guaifenesin [GUAIFENESIN] Allergy Intermediate HIVES Verified 02/20/21 11:10 metaproterenol [From Alupent] Allergy Mild PALPITATIONS, Verified 02/20/21 11:10 RASH Review of Systems Review of Systems Yes all other systems are reviewed and are negative Constitutional: Reports fever(s) and Reports headache(s) Eyes: Reports no additional eye complaints Reports as per HPI and Reports headache(s) Cardiovascular: Reports no additional cardiovascular complaints and Denies dyspnea Respiratory: Denies dyspnea Gastrointestinal: Reports as per HPI, Reports abdominal pain, Reports GI cramping, Reports diarrhea, Reports nausea and Denies vomiting Genitourinary: Reports no additional female genitourinary complaints Reports headache(s) and Denies Sensory deficit (Neuro) Physical Exam Vital Signs: Vital Signs: Last Vital Signs Temp 99.2 F 02/20/21 22:00 Pulse 88 02/20/21 22:00 Resp 16 02/20/21 22:00 BP 133/76 02/20/21 22:00 Pulse Ox 97 02/20/21 22:00 BMI result Body Mass Index 20.3 Const: General: cooperative, no acute distress and alert Orientation/consciousness: patient oriented x3 HENMT: Head: Yes normal to inspection Eyes: General: appearance normal, both eyes and all related structures Eyelids: Yes eyelids normal Conjunctivae: conjunctivae normal Pupils: Equal, round and reactive pupils present Neck: Neck: Yes normal visual inspection and Yes supple Chest: Chest palpation & inspection: normal inspection of the chest Resp: Effort & Inspection: normal respiratory effort Auscultation: clear to auscultation bilaterally Cardio: Rate: tachycardic Rhythm: regular rhythm Heart sounds: S1 normal heart sound present, S2 normal heart sound present, no gallops, no murmurs and no rubs GI: Palpation (GI): Soft to palpation, Tenderness to palpation present (GI) (Moderately tender diffusely) and Other GI palpation findings present (Non- distended) Auscultation: bowels sounds not normal and Hypoactive bowel sounds present Skin: General skin exam: no rashes or lesions noted Neuro: General: patient oriented x3, no focal motor deficits and CN's II-XI intact bilaterally Cranial nerves: Yes Equal, round and reactive pupils present Cognition (Neuro): normal cognition Motor exam (neuro): 5/5 motor strength present throughout Sensory Exam: No Sensory deficit (Neuro) Extrem: General: Yes normal to inspection and Yes no pedal edema Psych: Appearance: grossly normal Affect: normal affect MDM - Abdominal Pain MDM Narrative Medical decision making narrative: Patient with symptoms of abdominal pain and diarrhea for 2-3 days. Patient has COVID, as do other family members. Patient somewhat histrionic on exam. CBC and chemistry unimpressive. CT scan did show sigmoid colonic thickening similar to prior in January, but there is a new area of thickening of the ileum. Patient has had 2 prior bouts of colitis and a colonoscopy on September 15 showed some ulceration, then in January the patient had another admission for colitis, was started on mesalamine and an antispasmodic medication, was impaired treated with antibiotics. I discussed the case with Gastroenterology on-call, Dr. Crow, who recommended sending AC diff test and started the patient on Cipro and Flagyl, holding off prednisone until the C diff resulted. Patient not ill appearing, is safe for outpatient treatment. Lab Data Attestation: I reviewed the patient's lab results. Result diagrams: 02/20/21 18:09 02/20/21 18:09 Labs: Lab Results 02/20/21 02/20/21 02/20/21 Range/Units 18:01 18:09 18:09 WBC 5.0 (4.8-10.8) X10*3/uL RBC 3.84 L D (4.20-5.50) X10*6/uL Hgb 12.5 D (12.0-16.0) g/dl Hct 36.6 L (37.0-47.0) % MCV 95.3 (80.0-98.0) fL MCH 32.6 (27.0-33.0) pg MCHC 34.2 (31.0-35.0) g/dl RDW 13.1 (11.0-16.0) % Plt Count 189 (160-400) X10*3/uL MPV 9.3 L (9.4-12.3) fL Immature Gran % (Auto) 0.2 (0.0-0.4) % Neut % (Auto) 67.4 (45-73) % Lymph % (Auto) 19.6 L (20-40) % [place] % (Auto) 12.4 H (2-11) % Eos % (Auto) 0.0 (0-4) % Baso % (Auto) 0.4 (0-2) % Lymph # (Auto) 1.0 L (1.2-4.9) X10*3/uL [place] # (Auto) 0.6 (0.1-1.2) X10*3/uL Eos # (Auto) 0.0 (0.0-0.4) X10*3/uL Baso # (Auto) 0.0 (0.0-0.2) X10*3/uL Abs Immat Gran (auto) 0.01 (0.00-0.03) X10*3/uL Absolute Neuts (auto) 3.4 (2.0-8.3) x10*3/uL Absolute Nucleated RBC 0.000 (0.0-0.012) X10*3/uL Nucleated RBC % (auto) 0.0 (0.0-0.2) /100WBC Sodium 136 (135-145) mmol/L Potassium 3.9 (3.3-5.1) mmol/L Chloride 101 (96-108) mmol/L Carbon Dioxide 26 (22-29) mmol/L Anion Gap 13 (12-20) BUN 5 L (9-16) mg/dL Creatinine 0.71 (0.5-1.4) mg/dL Estim Creat Clear Calc 80.6 Estimated GFR > 60 Random Glucose 118 H (60-115) mg/dL Calcium 8.3 L D (8.4-10.2) mg/dL Total Bilirubin 0.3 (0.0-1.0) mg/dL AST 16 D (5-31) U/L ALT 9 (0-31) U/L Alkaline Phosphatase 44 (39-117) U/L Total Protein 6.6 (6.5-8.0) g/dL Albumin 3.7 (3.5-5.0) g/dL Urine Color Urine Appearance Urine pH (5.0-8.0) Ur Specific [place] (1.005-1.025) Urine Protein (NEG-TRACE) MG/DL Urine Glucose (UA) (NEG) MG/DL Urine Ketones (NEG) MG/DL Urine Blood (NEG) Urine Nitrite (NEG) Ur Leukocyte Esterase (NEG) Urine RBC (0) /HPF Urine WBC (0-4) /HPF Ur Squamous Epith Cells /LPF Urine Bacteria /LPF Urine Mucus /LPF COVID-19 (JANIS) Positive A (Negative) COVID-19 Clin Com See Note 02/20/21 Range/Units 19:21 WBC (4.8-10.8) X10*3/uL RBC (4.20-5.50) X10*6/uL Hgb (12.0-16.0) g/dl Hct (37.0-47.0) % MCV (80.0-98.0) fL MCH (27.0-33.0) pg MCHC (31.0-35.0) g/dl RDW (11.0-16.0) % Plt Count (160-400) X10*3/uL MPV (9.4-12.3) fL Immature Gran % (Auto) (0.0-0.4) % Neut % (Auto) (45-73) % Lymph % (Auto) (20-40) % [place] % (Auto) (2-11) % Eos % (Auto) (0-4) % Baso % (Auto) (0-2) % Lymph # (Auto) (1.2-4.9) X10*3/uL [place] # (Auto) (0.1-1.2) X10*3/uL Eos # (Auto) (0.0-0.4) X10*3/uL Baso # (Auto) (0.0-0.2) X10*3/uL Abs Immat Gran (auto) (0.00-0.03) X10*3/uL Absolute Neuts (auto) (2.0-8.3) x10*3/uL Absolute Nucleated RBC (0.0-0.012) X10*3/uL Nucleated RBC % (auto) (0.0-0.2) /100WBC Sodium (135-145) mmol/L Potassium (3.3-5.1) mmol/L Chloride (96-108) mmol/L Carbon Dioxide (22-29) mmol/L Anion Gap (12-20) BUN (9-16) mg/dL Creatinine (0.5-1.4) mg/dL Estim Creat Clear Calc Estimated GFR Random Glucose (60-115) mg/dL Calcium (8.4-10.2) mg/dL Total Bilirubin (0.0-1.0) mg/dL AST (5-31) U/L ALT (0-31) U/L Alkaline Phosphatase (39-117) U/L Total Protein (6.5-8.0) g/dL Albumin (3.5-5.0) g/dL Urine Color YELLOW Urine Appearance CLEAR Urine pH 6.5 (5.0-8.0) Ur Specific [place] <= 1.005 (1.005-1.025) Urine Protein NEG (NEG-TRACE) MG/DL Urine Glucose (UA) NEG (NEG) MG/DL Urine Ketones 15 (NEG) MG/DL Urine Blood 2+ H (NEG) Urine Nitrite NEG (NEG) Ur Leukocyte Esterase NEG (NEG) Urine RBC 1-4 (0) /HPF Urine WBC 0-2 (0-4) /HPF Ur Squamous Epith Cells 1+ /LPF Urine Bacteria TRACE /LPF Urine Mucus 1+ /LPF COVID-19 (JANIS) (Negative) COVID-19 Clin Com Imaging Data Chest x-ray: Radiologist's impression: IMPRESSION: Unremarkable chest examination. ? CT abdomen and pelvis with IV contrast: Radiologist's impression: IMPRESSION: Once again thickening of the sigmoid consistent with colitis. Similar to previous. Infectious versus noninfectious etiology ? There is, now however thickening of a long length of ileum suggesting enteritis infectious versus noninfectious etiology? Discharge Plan Discharge Clinical Impression: Colitis, COVID-19 Patient Disposition: Home, Self-Care Instructions: Colitis (ED), COVID-19 (Coronavirus Disease 2019) (ED) Additional Instructions: Drink plenty of fluids. Follow-up with your neon tube bender. Continue mesalamine and dicyclomine. Use ondansetron as needed for nausea. Quarantine at home for 5 days since your COVID positive. Take ciprofloxacinand Flagyl as prescribed. Use ondansetron for nausea. Follow-up with gastroenterology after quarantine has ended. Return for any new or worsened symptoms Prescriptions: New ciprofloxacin HCl [Cipro] 500 mg tablet 500 mg PO BID 6 Days Qty: 12 RF: 0 metronidazole 500 mg tablet 500 mg PO Q8H Qty: 20 RF: 0 ondansetron 4 mg tablet,disintegrating 4 mg PO Q6H PRN (Reason: nausea and vomiting) 3 Days Qty: 10 RF: 0 No Action norgestimate-ethinyl estradiol [Estarylla] 0.25-35 mg-mcg tablet 1 tab PO DAILY RF: 0 clonazepam 0.5 mg tablet 0.5 mg PO TID RF: 0 oxycodone 5 mg tablet 1 tab PO BID RF: 0 zolpidem 12.5 mg tablet,ext release multiphase 1 tab PO BEDTIME PRN (Reason: Sleep) RF: 0 dicyclomine 20 mg tablet 1 tab PO BID-TID RF: 0 mesalamine [Delzicol] 400 mg Capsule (With Del Rel Tablets) 800 mg PO TID Qty: 90 RF: 0 levofloxacin 500 mg tablet 500 mg PO Q24H Qty: 3 RF: 0 metronidazole 500 mg tablet 500 mg PO Q8H Qty: 9 RF: 0 Interventions: ED Discharge Assessment Last Done: 02/20/21 22:54 Discharge Date/Time: 02/20/21 23:09 [facility] Past Medical History Medical History Cervical cancer Cholecystectomy planned Colitis Radiation cystitis Surgical History Hx of elbow surgery Tubal ligation status Social History Social History Household Members: Significant Other Housing: House Do you presently have visiting nurse or other home services: No Alcohol intake: never Patient Tobacco Use Status: Current everyday Tobacco user Tobacco use type: Cigarette Cigarettes Per Day: 3 Years Smoked: 20 Second Hand Smoke Exposure: No Advance Directives: Yes Advance Directives Information Provided: Yes Advance Directives on File: No Advance Directives Date on File: 09/10/20 Patient : No service: No Current occupational status: employed
[2021-02-20 18:19] LABS: MANUAL DIFF FLAG NO
[2021-02-20 18:22] LABS: Basophils Percent Auto 0.4 % (0-2); Hematocrit 36.6 % (37.0-47.0); Hemoglobin 12.5 g/dl (12.0-16.0); Imm Gran Abs Auto 0.01 X10*3/uL (0.00-0.03); Imm Gran Pct Auto 0.2 % (0.0-0.4); Lymphocytes Percent Auto 19.6 % (20-40); Mean Corpuscular HGB Conc 34.2 g/dl (31.0-35.0); Mean Corpuscular Hemoglobin 32.6 pg (27.0-33.0); Mean Corpuscular Volume 95.3 fL (80.0-98.0); Mean Platelet Volume 9.3 fL (9.4-12.3); Monocytes Absolute Auto 0.6 X10*3/uL (0.1-1.2); Monocytes Percent Auto 12.4 % (2-11); Neutrophils Absolute Auto 3.4 x10*3/uL (2.0-8.3); Neutrophils Percent Auto 67.4 % (45-73); Platelet Count 189 X10*3/uL (160-400); Red Blood Count 3.84 X10*6/uL (4.20-5.50); Red Cell Distribution Width 13.1 % (11.0-16.0)
[2021-02-20] MEDS: 0.9 % Sodium Chloride 1,000 ML 999 ML IV (19:19)
[2021-02-20 19:20] LABS: Alanine Aminotransferase 9 U/L (0-31); Albumin Level 3.7 g/dL (3.5-5.0); Alkaline Phosphatase 44 U/L (39-117); Anion Gap 13 (12-20); Aspartate Amino Transferase 16 U/L (5-31); Bilirubin Total 0.3 mg/dL (0.0-1.0); Blood Urea Nitrogen 5 mg/dL (9-16); Calcium 8.3 mg/dL (8.4-10.2); Carbon Dioxide 26 mmol/L (22-29); Chloride 101 mmol/L (96-108); Creatinine Clr Calc Pharmacy 80.6; Estimated Glomerular Filt Rate > 60; Glucose Random 118 mg/dL (60-115); Potassium 3.9 mmol/L (3.3-5.1); Sodium 136 mmol/L (135-145); Total Protein 6.6 g/dL (6.5-8.0)
[2021-02-20 19:29] LABS: Appearance Urine CLEAR; Color Urine YELLOW; Glucose Urine UA NEG (NEG); Leukocyte Esterase Urine NEG (NEG); Nitrite Urine NEG (NEG); PH 6.5 (5.0-8.0); Specific Gravity - Urine <= 1.005 (1.005-1.025); UACC Culture Trigger NO; Urine Blood 2+ (NEG); Urine Ketones 15 MG/DL (NEG); Urine Protein NEG (NEG-TRACE)
[2021-02-20 19:36] LABS: Bacteria Urine TRACE /LPF; Squamous Epithelial Cell Urine 1+ /LPF; WBC Urine 0-2 /HPF (0-4)
[2021-02-20 19:37] LABS: Mucus Urine 1+ /LPF
[2021-02-20] MEDS: iohexoL 350 MG/ML 100 ML INFUS..BTL 85 ML IV (19:53)
[2021-02-20 20:12] LABS: COVID-19 Test Positive (Negative); IDNOW Serial# 55D5AD1C
[2021-02-20 20:14] VITALS: BP 129/71; PULSE 87; RESP 16; TEMP 37.4; O2SAT 97
[2021-02-20] MEDS: Morphine Sulfate 4 MG/ML CARTRIDGE IVPUSH (21:07)
[2021-02-20 22:00] VITALS: BP 133/76; PULSE 88; RESP 16; TEMP 37.3; O2SAT 97
[2021-02-20] MEDS: metroNIDAZOLE 500 MG TABLET PO (22:26)
[2021-02-20] MEDS: HYDROmorphone HCl 1 MG/ML SYRINGE IVPUSH (22:26)
[2021-02-20] MEDS: levoFLOXacin 750 MG TABLET PO (22:26)
== END 2021-02-20 23:09 | disposition home or self-care (01) ==
PROVIDERS: Emergency Provider Emergency Medicine; PCP Internal Medicine
DX: U07.1 COVID-19 (principal); K52.9 Noninfective gastroenteritis and colitis, unspecified; R10.9 Unspecified abdominal pain; R50.9 Fever, unspecified
CPT/HCPCS: 36415; 71045; 74177; 80053; 81001; 85025; 87635; 96361; 96374; 96375; 99283; 99284; J1170; J2270; Q9967

== ENCOUNTER 2021-03-16 17:45 | Inpatient (IN) | payer MEDICAID, SELFPAY ==
[2021-03-16] VITALS (8 sets, daily range): BP systolic 123–162; BP diastolic 74–87; PULSE 72–84; RESP 16–22; TEMP 36.8–37.2; O2SAT 98–100; BMI 20.1
--- NOTE | ~2021-03-16 | CT_ITS ---
EXAMINATION: CT ABDOMEN AND PELVIS WITH CONTRAST CLINICAL INFORMATION: Abdominal pain. Colitis. COMPARISON: CT scan abdomen pelvis 02/20/2021 TECHNIQUE: Multidetector volumetric images were obtained from the superior aspect of the liver through the pubic symphysis following administration 85 mL of Omnipaque 350 intravenous contrast. Sagittal and coronal reformatted images were obtained on the technologist's workstation. Oral contrast: Administered This CT examination was performed using dose optimization techniques as appropriate, variously including the following: *Automated exposure control *Adjustment of mA and/or kV according to patient size (this includes techniques or standardized protocols for targeted exams where dose is matched to indication/reason for exam; i.e. extremities or head) *Use of iterative reconstruction technique DLP: 265 mGy-cm FINDINGS: LUNG BASES: The visualized lung bases are unremarkable. LIVER, GALLBLADDER, AND BILIARY TREE: The liver is normal in size, shape, and attenuation. No focal hepatic lesion or biliary ductal dilatation is present. Status post cholecystectomy. PANCREAS: Unremarkable. SPLEEN: Unremarkable. ADRENAL GLANDS: Unremarkable. KIDNEYS AND URETERS: The kidneys are normal in size, shape, and attenuation. No hydronephrosis, hydroureter, or calculi seen. No perinephric stranding. BLADDER: Unremarkable. GASTROINTESTINAL TRACT: There is submucosal thickening of the left colon from the splenic flexure through the sigmoid colon this is consistent with a mild colitis. This has worsened since prior study 02/20/2021. The descending colon is not involved on the prior CAT scan. No bowel obstruction. No air in the bowel wall. There is mild dilatation of small bowel loops with air-fluid levels. There is mild edema in the submucosa of the mid distal small bowel loops.. This could be due to enteritis or sequela of the abdominal ascites. No air in the bowel wall. No defined transition point is seen. No dilatation of the terminal ileum. Would favor ileus over obstruction. The abnormality of the small bowel is new since CAT scan 02/20/2021. The appendix is not visualized. MESENTERY: Moderate volume of abdominal ascites in the abdomen and pelvis. This is new since CAT scan 02/20/2021. ABDOMINAL WALL: No significant hernia is appreciated. LYMPH NODES: Normal. VASCULAR: Normal enhancement of the abdominal and pelvic vasculature. No portal venous gas. PELVIC VISCERA: Unremarkable. OSSEOUS STRUCTURES: No acute osseous abnormality. Multilevel degenerative spondylosis of the spine. CT/CT abdomen pelvis w con IMPRESSION: 1. Submucosal thickening and edema of left colon from splenic flexure through the sigmoid colon consistent with a mild colitis. The colitis has worsened since prior study of 02/20/2021 with involvement now seen of the descending colon which was not present on the prior exam. 2. Mild dilatation of small bowel loops with air-fluid levels. No sharp transition point. Ileus is favored over obstruction. Edema in the submucosal small bowel loops which can be sequela of the ascites versus enteritis. No air in the bowel wall. 3. Moderate volume of abdominal ascites. This is new since CAT scan 02/20/2021 Fleischner guidelines were followed. This critical result was discussed with at 04:20pm on 03/18/2021 and it was ascertained that the content and urgency of the report was understood at the time of direct communication.
--- NOTE | 2021-03-16 17:39 | ED_ITS ---
HPI - Abdominal Pain General Chief Complaint: Abdominal Pain Stated Complaint: colitis Time Seen by Provider: 03/16/21 17:55 Source: patient Mode of arrival: EMS Limitations: no limitations History of Present Illness HPI narrative: Patient with history of colitis last admission on 02/20, had colonoscopy on 09/21/2020 which showed nonspecific colitis no chronic granulomatous changes been having recurrent episode of colitis for last 2 years had cervical cancer status post radiation treatment in 2019 been admitted multiple times for mucousy diarrhea pain and nausea vomiting this time [place] today morning with more nausea and vomiting 2 times with well-formed, no blood in the stool bowel movement diffuse abdominal pain no fever no chills Related Data Home Medications Medication Instructions Recorded Confirmed clonazepam 0.5 mg tablet 0.5 mg PO TID 09/09/20 03/16/21 norgestimate 0.25 mg-ethinyl 1 tab PO DAILY 09/09/20 03/16/21 estradiol 35 mcg tablet (Estarylla) oxycodone 5 mg tablet 1 tab PO TID PRN 09/09/20 03/16/21 zolpidem 12.5 mg tablet,extended 1 tab PO BEDTIME PRN 09/09/20 03/16/21 release,multiphase mesalamine 400 mg capsule (with 2 cap PO TID 03/16/21 03/16/21 delayed release tablets inside) Allergies Allergy/AdvReac Type Severity Reaction Status Date / Time guaifenesin [GUAIFENESIN] Allergy Intermediate HIVES Verified 02/20/21 11:10 metaproterenol [From Alupent] Allergy Mild PALPITATIONS, Verified 02/20/21 11:10 RASH Review of Systems Review of Systems Yes all other systems are reviewed and are negative Physical Exam Vital Signs: Vital Signs: Last Vital Signs Temp 99 F 03/16/21 22:00 Pulse 78 03/16/21 22:00 Resp 16 03/16/21 23:06 BP 162/83 H 03/16/21 22:00 Pulse Ox 98 03/16/21 22:00 BMI result Body Mass Index 20.1 Appearance: Alert. Oriented X3. No acute distress. Eyes: No pallor/ icterus ENT: Pharynx normal. Oral Mucosa moist Neck: Normal inspection. Neck supple. CVS: Normal heart rate and rhythm. Pulses normal. Respiratory: No respiratory distress. Equal air entry bilateral, no wheezing/rales/rhonchi Abdomen: Soft and diffuse abdominal tenderness no rebound tenderness cardiac Bowel sounds are present, no mass palpable, no CVA tenderness Skin: Skin warm and dry. Normal skin color. Normal skin turgor. Extremities: No lower extremity edema. No calf tenderness Neuro: Oriented X 3. MDM - Abdominal Pain MDM Narrative Medical decision making narrative: Patient with recurrent abdominal pain with colitis had 1 loose bowel in the ER had vomited prior to arrival no blood in the stool seems like patient has chronic radiation colitis with abdominal pain possible abdominal migraine as patient does have history of migraine and these episodes of abdominal pain are intermittent not continuous and patient already been followed by automotive product engineer with the colonoscopy in 09/26 which shows colitis at this time there is no signs of infection CRP 0.55 WBC counts normal lactic acid normal will hold any antibiotics at this time admitted for intractable abdominal pain and IV hydration Medical Records Attestation: I reviewed the patient's medical records. Lab Data Attestation: I reviewed the patient's lab results. Result diagrams: 03/16/21 18:41 03/16/21 18:41 Labs: Lab Results 03/16/21 03/16/21 03/16/21 Range/Units 18:41 18:41 18:41 WBC 8.3 (4.8-10.8) X10*3/uL RBC 3.90 L (4.20-5.50) X10*6/uL Hgb 12.4 (12.0-16.0) g/dl Hct 37.3 (37.0-47.0) % MCV 95.6 (80.0-98.0) fL MCH 31.8 (27.0-33.0) pg MCHC 33.2 (31.0-35.0) g/dl RDW 13.3 (11.0-16.0) % Plt Count 233 (160-400) X10*3/uL MPV 9.1 L (9.4-12.3) fL Immature Gran % (Auto) 0.4 (0.0-0.4) % Neut % (Auto) 80.6 H (45-73) % Lymph % (Auto) 11.6 L (20-40) % [place] % (Auto) 6.2 (2-11) % Eos % (Auto) 1.0 (0-4) % Baso % (Auto) 0.2 (0-2) % Lymph # (Auto) 1.0 L (1.2-4.9) X10*3/uL [place] # (Auto) 0.5 (0.1-1.2) X10*3/uL Eos # (Auto) 0.1 (0.0-0.4) X10*3/uL Baso # (Auto) 0.0 (0.0-0.2) X10*3/uL Abs Immat Gran (auto) 0.03 (0.00-0.03) X10*3/uL Absolute Neuts (auto) 6.7 (2.0-8.3) x10*3/uL Absolute Nucleated RBC 0.000 (0.0-0.012) X10*3/uL Nucleated RBC % (auto) 0.0 (0.0-0.2) /100WBC Sodium 138 (135-145) mmol/L Potassium 3.5 (3.3-5.1) mmol/L Chloride 104 (96-108) mmol/L Carbon Dioxide 23 (22-29) mmol/L Anion Gap 15 (12-20) BUN 11 D (9-16) mg/dL Creatinine 0.76 (0.5-1.4) mg/dL Estim Creat Clear Calc 72.0 Estimated GFR > 60 Random Glucose 87 (60-115) mg/dL Lactic Acid 0.7 (0.5-2.0) mmol/L Calcium 8.9 D (8.4-10.2) mg/dL Total Bilirubin 0.8 (0.0-1.0) mg/dL AST 12 (5-31) U/L ALT 9 (0-31) U/L Alkaline Phosphatase 49 (39-117) U/L C-Reactive Protein 0.55 H (< or = 0.50) mg/dL Total Protein 6.2 L (6.5-8.0) g/dL Albumin 3.7 (3.5-5.0) g/dL Discharge Plan Discharge Clinical Impression: Abdominal pain, Colitis Patient Disposition: Admitted As Inpatient [facility] Past Medical History Medical History Anxiety Cervical cancer Cholecystectomy planned Colitis Colitis Radiation cystitis Surgical History Hx of elbow surgery Tubal ligation status Social History Social History Household Members: Significant Other Housing: House Do you presently have visiting nurse or other home services: No Alcohol intake: never Patient Tobacco Use Status: Current everyday Tobacco user Tobacco use type: Cigarette Cigarettes Per Day: 3 Years Smoked: 20 Second Hand Smoke Exposure: No Advance Directives: No Advance Directives Information Provided: Yes Advance Directives Date on File: 09/10/20 service: No Current occupational status: employed
[2021-03-16 18:46] LABS: MANUAL DIFF FLAG NO
[2021-03-16 18:48] LABS: Basophils Percent Auto 0.2 % (0-2); Eosinophils Absolute Auto 0.1 X10*3/uL (0.0-0.4); Hematocrit 37.3 % (37.0-47.0); Hemoglobin 12.4 g/dl (12.0-16.0); Imm Gran Abs Auto 0.03 X10*3/uL (0.00-0.03); Imm Gran Pct Auto 0.4 % (0.0-0.4); Lymphocytes Percent Auto 11.6 % (20-40); Mean Corpuscular HGB Conc 33.2 g/dl (31.0-35.0); Mean Corpuscular Hemoglobin 31.8 pg (27.0-33.0); Mean Corpuscular Volume 95.6 fL (80.0-98.0); Mean Platelet Volume 9.1 fL (9.4-12.3); Monocytes Absolute Auto 0.5 X10*3/uL (0.1-1.2); Monocytes Percent Auto 6.2 % (2-11); Neutrophils Absolute Auto 6.7 x10*3/uL (2.0-8.3); Neutrophils Percent Auto 80.6 % (45-73); Platelet Count 233 X10*3/uL (160-400); Red Cell Distribution Width 13.3 % (11.0-16.0); White Blood Count 8.3 X10*3/uL (4.8-10.8)
[2021-03-16 18:57] LABS: Lactic Acid 0.7 mmol/L (0.5-2.0)
[2021-03-16 19:02] LABS: Alanine Aminotransferase 9 U/L (0-31); Albumin Level 3.7 g/dL (3.5-5.0); Alkaline Phosphatase 49 U/L (39-117); Anion Gap 15 (12-20); Aspartate Amino Transferase 12 U/L (5-31); Bilirubin Total 0.8 mg/dL (0.0-1.0); Blood Urea Nitrogen 11 mg/dL (9-16); C Reactive Protein 0.55 mg/dL (< or = 0.50); Calcium 8.9 mg/dL (8.4-10.2); Carbon Dioxide 23 mmol/L (22-29); Chloride 104 mmol/L (96-108); Estimated Glomerular Filt Rate > 60; Glucose Random 87 mg/dL (60-115); Potassium 3.5 mmol/L (3.3-5.1); Sodium 138 mmol/L (135-145); Total Protein 6.2 g/dL (6.5-8.0)
[2021-03-16] MEDS: methylPREDNISolone Sod Succ 125 MG/2 ML VIAL IVPUSH (19:22)
[2021-03-16] MEDS: Morphine Sulfate 4 MG/ML CARTRIDGE IVPUSH ×2 (19:22→22:10)
[2021-03-16] MEDS: ondansetron HCL 4 MG/2 ML VIAL IVPUSH ×2 (19:23→22:10)
[2021-03-16] MEDS: 0.9 % Sodium Chloride 1,000 ML 999 ML IV ×2 (19:23→20:01)
[2021-03-16] MEDS: HYDROmorphone HCl 2 MG/ML VIAL IVPUSH (20:01)
--- NOTE | 2021-03-16 20:10 | PHA.MEDREC ---
Pharmacy Consult ? Medication Reconciliation Pharmacy has completed the medication reconciliation. Pt's last fill of mesalamine was 01/06/21 verified with radha
--- NOTE | 2021-03-16 20:20 | PC.NURSE ---
pt pending admission. pt c/o abd pain 11/15. Dr. Pearce aware and pt medicated with pain meds as per emar. VS obtained. warm blk provided for pt.
--- NOTE | 2021-03-16 20:29 | PC.NURSE ---
pt states im feeling better md aware. Pt remains alert, respirations easy, n/l. skin w/d. will continue to monitor pt.
--- NOTE | 2021-03-16 20:30 | PC.NURSE ---
med rec done.
--- NOTE | 2021-03-16 21:47 | PM.IMHP ---
History of Present Illness Date of Service: 03/16/21 Chief Complaint: abd pain 35-year-old female with past medical history of cervical cancer, radiation proctitis/ cystitis, and recently diagnosed colitis who presents to the hospital with complaints of abdominal pain as well as several episodes of vomiting. Patient has had recurrent admission recently for the same problem. She reports that her symptoms started 1 day ago, was severe, diffuse, 10/10 nonradiating abdominal pain. she describes it as a sensation of chewing in her guts. Associated with 10 plus episodes of vomiting. She has also had 2-3 episodes of diarrhea. Both vomiting and diarrhea nonbloody. patient otherwise denies any chest pain, no shortness of breath, no headache or change in vision, no fever chills, no urinary symptoms and no lower extremity edema. On arrival to the ED patient hemodynamically stable with slightly elevated blood pressure Labs reviewed, unremarkable. patient had a CT of the abdomen in February, and does not feel that a repeat CT would be beneficial. Patient given pain medication will be admitted for further management Review of Systems Review of Systems: Yes all other systems are reviewed and are negative FORMERLY [facility], [facility]–1983 Medical History Anxiety Cervical cancer Cholecystectomy planned Colitis Colitis Radiation cystitis Family History (Updated 03/17/21 @ 06:22 by Candie Pierre MD) Other No family history of coronary artery disease Surgical History Hx of elbow surgery Tubal ligation status Social History Household Members: Significant Other Housing: House Do you presently have visiting nurse or other home services: No Alcohol intake: never Patient Tobacco Use Status: Current everyday Tobacco user Tobacco use type: Cigarette Cigarettes Per Day: 3 Years Smoked: 20 Second Hand Smoke Exposure: No Advance Directives: No Advance Directives Information Provided: Yes Advance Directives Date on File: 09/10/20 service: No Current occupational status: employed Meds Allergies Allergy/AdvReac Type Severity Reaction Status Date / Time guaifenesin [GUAIFENESIN] Allergy Intermediate HIVES Verified 02/20/21 11:10 metaproterenol [From Alupent] Allergy Mild PALPITATIONS, Verified 02/20/21 11:10 RASH Active Medications: Current Medications Acetaminophen (Acetaminophen 325 Mg Tablet) 650 mg PO Q6H PRN PRN Reason: Pain, Mild (Pain Scale 1-3) Morphine Sulfate (Morphine Sulfate 4 Mg/Ml Cartridge) 4 mg IVPUSH Q4H PRN; Protocol PRN Reason: Pain, Severe (Pain Scale 7-10) Ondansetron HCl (Ondansetron Hcl 4 Mg/2 Ml Vial) 4 mg IVPUSH Q8H PRN PRN Reason: Nausea and Vomiting Sodium Chloride (0.9 % Sodium Chloride Flush 3 Ml Syringe) 3 ml IVFLUSH [facility] Home Medications Medication Instructions Recorded Confirmed Last Taken Type clonazepam 0.5 mg tablet 0.5 mg PO TID 09/09/20 03/16/21 01/04/21 History norgestimate 0.25 mg-ethinyl 1 tab PO DAILY 09/09/20 03/16/21 01/04/21 History estradiol 35 mcg tablet (Estarylla) oxycodone 5 mg tablet 1 tab PO TID PRN 09/09/20 03/16/21 01/04/21 History zolpidem 12.5 mg tablet,extended 1 tab PO BEDTIME PRN 09/09/20 03/16/21 01/03/21 History release,multiphase mesalamine 400 mg capsule (with 2 cap PO TID 03/16/21 03/16/21 Unknown History delayed release tablets inside) Physical Exam Vital Signs and Narrative: Vital Signs: Last Vital Signs Temp 98.3 F 03/16/21 18:28 Pulse 84 03/16/21 19:00 Resp 16 03/16/21 20:01 BP 123/82 03/16/21 19:00 Pulse Ox 98 03/16/21 19:00 BMI result Body Mass Index 20.1 Const: Other: appears visibly in pain General: cooperative and no acute distress Orientation/consciousness: patient oriented x3 Eyes: General: appearance normal, both eyes and all related structures Pupils: Equal, round and reactive pupils present Resp: Effort & Inspection: normal respiratory effort Auscultation: clear to auscultation bilaterally Cardio: Rate: regular rate Rhythm: regular rhythm GI: Other: guarding Palpation (GI): Soft to palpation Auscultation: normal bowel sounds Skin: General skin exam: no rashes or lesions noted Neuro: General: patient oriented x3 Cranial nerves: Yes Equal, round and reactive pupils present Cognition (Neuro): normal cognition Extrem: General: Yes normal to inspection and Yes no pedal edema Results Labs CBC and Chem 7: 03/16/21 18:41 03/16/21 18:41 Labs: Laboratory Results - last 24 hr 03/16/21 03/16/21 03/16/21 18:41 18:41 18:41 MCV 95.6 MCH 31.8 MCHC 33.2 RDW 13.3 Plt Count 233 MPV 9.1 L Immature Gran % (Auto) 0.4 Neut % (Auto) 80.6 H Lymph % (Auto) 11.6 L [place] % (Auto) 6.2 Eos % (Auto) 1.0 Baso % (Auto) 0.2 Lymph # (Auto) 1.0 L [place] # (Auto) 0.5 Eos # (Auto) 0.1 Baso # (Auto) 0.0 Abs Immat Gran (auto) 0.03 Absolute Neuts (auto) 6.7 Absolute Nucleated RBC 0.000 Nucleated RBC % (auto) 0.0 Anion Gap 15 Estim Creat Clear Calc 72.0 Estimated GFR > 60 Random Glucose 87 Lactic Acid 0.7 Calcium 8.9 D Total Bilirubin 0.8 AST 12 ALT 9 Alkaline Phosphatase 49 C-Reactive Protein 0.55 H Total Protein 6.2 L Albumin 3.7 Assessment and Plan (1) Abdominal pain: Status: Acute (2) Colitis: Status: Acute Plan 45-year-old female with past medical history of radiation proctitis as well as recently diagnosed colitis presents to the hospital with complaints of abdominal pain # Abdominal pain /colitis - likely 2/2 acute flare of colitis - LA -ve, no leukocytosis - CT of abd in february showed improvement - at this time will hold off on rpting CT and 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
--- NOTE | 2021-03-16 22:14 | PC.NURSE ---
pt medicated as per emar.
[2021-03-16 22:28] LABS: COVID-19 Test Negative (Negative)
[2021-03-16] MEDS: HYDROmorphone HCl 1 MG/ML SYRINGE 0.5 MG IVPUSH (23:06)
[2021-03-17] VITALS (9 sets, daily range): BP systolic 123–147; BP diastolic 71–89; PULSE 82–95; RESP 14–18; TEMP 36.7–37.3; O2SAT 92–99
[2021-03-17] MEDS: Morphine Sulfate 4 MG/ML CARTRIDGE IVPUSH ×2 (02:17→06:48)
[2021-03-17] MEDS: 0.9 % Sodium Chloride Flush 3 ML SYRINGE IVFLUSH ×2 (02:20→08:30)
--- NOTE | 2021-03-17 02:24 | PC.NURSE ---
PT AWAITING FOR PENDING ROOM ASSIGNMENT. PT REMAINS ALERT, RESPIRATIONS EASY, N/L SKIN W/D. PT MEDICATED PER EMAR FOR PAIN RATED 10/10.
[2021-03-17] MEDS: HYDROmorphone HCl 1 MG/ML SYRINGE 0.5 MG IVPUSH ×2 (05:10→10:38)
--- NOTE | 2021-03-17 05:49 | PC.NURSE ---
pt is having a lot of pain.
--- NOTE | 2021-03-17 07:00 | PC.NURSE ---
pt rating abd pain 10/10. pt unable to eat ice w/o causing pain in stomach. Pt up to restroom and now is c/o diarrhea. Pt alert, respirations easy, n/l. skin w/d. pt is upset and complaining about still being in pain and awaiting for Dr. Mejia. Report given to FREDA Phipps.
[2021-03-17 07:42] LABS: Basophils Percent Auto 0.1 % (0-2); Imm Gran Abs Auto 0.02 X10*3/uL (0.00-0.03); Imm Gran Pct Auto 0.3 % (0.0-0.4); Lymphocytes Absolute Auto 0.5 X10*3/uL (1.2-4.9); Lymphocytes Percent Auto 6.7 % (20-40); MANUAL DIFF FLAG SCAN; Mean Corpuscular HGB Conc 33.3 g/dl (31.0-35.0); Mean Corpuscular Hemoglobin 31.5 pg (27.0-33.0); Mean Corpuscular Volume 94.5 fL (80.0-98.0); Mean Platelet Volume 9.2 fL (9.4-12.3); Monocytes Absolute Auto 0.2 X10*3/uL (0.1-1.2); Monocytes Percent Auto 2.2 % (2-11); Neutrophils Absolute Auto 6.9 x10*3/uL (2.0-8.3); Neutrophils Percent Auto 90.7 % (45-73); Platelet Count 249 X10*3/uL (160-400); Red Blood Count 3.81 X10*6/uL (4.20-5.50); Red Cell Distribution Width 13.2 % (11.0-16.0); SCAN SMEAR FLAG 1; White Blood Count 7.6 X10*3/uL (4.8-10.8)
[2021-03-17 08:12] LABS: Anion Gap 15 (12-20); Blood Urea Nitrogen 8 mg/dL (9-16); Calcium 7.7 mg/dL (8.4-10.2); Carbon Dioxide 18 mmol/L (22-29); Chloride 107 mmol/L (96-108); Creatinine Clr Calc Pharmacy 77.1; Estimated Glomerular Filt Rate > 60; Glucose Random 120 mg/dL (60-115); Potassium 3.7 mmol/L (3.3-5.1); Sodium 136 mmol/L (135-145)
[2021-03-17] MEDS: ondansetron HCL 4 MG/2 ML VIAL IVPUSH (08:36)
[2021-03-17 08:52] LABS: SLIDE REVIEW VERIFIED
--- NOTE | 2021-03-17 09:48 | MHC.CM.PN ---
Attempted to meet with patient in regards to discharge planning. Provider currently with patient. Will attempt to meet again. Continue to monitor for d/c needs.
--- NOTE | 2021-03-17 12:04 | PC.NURSE ---
Pt received from main ER: Pt AOX4 and c/o moderate generalized abd pain with intermittent nausea and diarrhea. Heart sounds normal and lungs clear. Pt abd soft and generalized tender. Pt able to self ambulate to BR with steady gait. Pt remains on clear liquids.
--- NOTE | 2021-03-17 12:06 | P.PNIM_ITS ---
Subjective Subjective Date of Service: 03/17/21 Interval History: the patient was seen and evaluated this morning Laying in bed, feels recurrent attacks of pain Having some nausea Denies any fever, chills or chest pain No reported other overnight events. Systemic review: No fever, chills or weakness No chest pain, palpitation No shortness of breath or coughing Reporting recurrent attacks of abdominal pain, severe in nature, associated with nausea No urinary symptoms No any rash or wounds Physical Exam Vital Signs: Vital Signs: Last Vital Signs Temp 98.1 F 03/17/21 12:03 Pulse 83 03/17/21 12:03 Resp 16 03/17/21 12:03 BP 135/85 03/17/21 12:03 Pulse Ox 99 03/17/21 12:03 BMI result Body Mass Index 20.1 Const: Other: Constitutional : Alert, interactive, in mild distress from pain Neck : Normal inspection, Supple Cardiovascular : RRR, S1 S2, no lower extremity edema Respiratory : Good bilateral air entry, no crackles, wheezes or rhonchi Gastrointestinal: soft, lax, decrease bowel sounds, generalized tenderness with no surgical signs appreciated Skin : Warm, Dry Neurological : Alert & oriented x3, No focal deficit Objective Data Active Medications Acetaminophen (Acetaminophen 325 Mg Tablet) 650 mg PO Q6H PRN PRN Reason: Pain, Mild (Pain Scale 1-3) Hydromorphone HCl (Hydromorphone Hcl 1 Mg/Ml Syringe) 0.5 mg IVPUSH Q4H PRN; Protocol PRN Reason: Pain, Severe (Pain Scale 7-10) Last Admin: 03/17/21 10:38 Dose: 0.5 mg Documented by: NASIM Morphine Sulfate (Morphine Sulfate 4 Mg/Ml Cartridge) 4 mg IVPUSH Q4H PRN; Protocol PRN Reason: Pain, Severe (Pain Scale 7-10) Last Admin: 03/17/21 06:48 Dose: 4 mg Documented by: JOSLYN Ondansetron HCl (Ondansetron Hcl 4 Mg/2 Ml Vial) 4 mg IVPUSH Q8H PRN PRN Reason: Nausea and Vomiting Last Admin: 03/17/21 08:36 Dose: 4 mg Documented by: NASIM Sodium Chloride (0.9 % Sodium Chloride Flush 3 Ml Syringe) 3 ml IVFLUSH [facility] Last Admin: 03/17/21 08:30 Dose: 3 ml Documented by: NASIM Labs CBC & Chem 7: 03/17/21 07:11 03/17/21 07:11 Labs: Laboratory Results - last 24 hr 03/16/21 03/16/21 03/16/21 18:41 18:41 18:41 MCV 95.6 MCH 31.8 MCHC 33.2 RDW 13.3 Plt Count 233 MPV 9.1 L Immature Gran % (Auto) 0.4 Neut % (Auto) 80.6 H Lymph % (Auto) 11.6 L [place] % (Auto) 6.2 Eos % (Auto) 1.0 Baso % (Auto) 0.2 Lymph # (Auto) 1.0 L [place] # (Auto) 0.5 Eos # (Auto) 0.1 Baso # (Auto) 0.0 Abs Immat Gran (auto) 0.03 Absolute Neuts (auto) 6.7 Absolute Nucleated RBC 0.000 Nucleated RBC % (auto) 0.0 Smear Tech's Comments Anion Gap 15 Estim Creat Clear Calc 72.0 Estimated GFR > 60 Random Glucose 87 Lactic Acid 0.7 Calcium 8.9 D Total Bilirubin 0.8 AST 12 ALT 9 Alkaline Phosphatase 49 C-Reactive Protein 0.55 H Total Protein 6.2 L Albumin 3.7 COVID-19 ([facility]ANIS) COVID-19 Clin Com 03/16/21 03/17/21 03/17/21 22:07 07:11 07:11 MCV 94.5 MCH 31.5 MCHC 33.3 RDW 13.2 Plt Count 249 MPV 9.2 L Immature Gran % (Auto) 0.3 Neut % (Auto) 90.7 H Lymph % (Auto) 6.7 L [place] % (Auto) 2.2 Eos % (Auto) 0.0 Baso % (Auto) 0.1 Lymph # (Auto) 0.5 L [place] # (Auto) 0.2 Eos # (Auto) 0.0 Baso # (Auto) 0.0 Abs Immat Gran (auto) 0.02 Absolute Neuts (auto) 6.9 Absolute Nucleated RBC 0.000 Nucleated RBC % (auto) 0.0 Smear Tech's Comments VERIFIED Anion Gap 15 Estim Creat Clear Calc 77.1 Estimated GFR > 60 Random Glucose 120 H Lactic Acid Calcium 7.7 L D Total Bilirubin AST ALT Alkaline Phosphatase C-Reactive Protein Total Protein Albumin COVID-19 (JANIS) Negative COVID-19 Clin Com See Note Assessment and Plan (1) Abdominal pain: Status: Acute (2) Colitis: Status: Acute Plan 45-year-old female with past medical history of radiation proctitis as well as recently diagnosed colitis presents to the hospital with complaints of abdominal pain # Abdominal pain /colitis likely 2/2 acute flare of colitis LA -ve, no leukocytosis, low CRP Received steroids in the emergency Will hold on antibiotics CT of abd in february showed mild improvement, refused to repeat the CT scan this admission Pending GI evaluation clear liquid diet until evaluated by GI Dilaudid for pain control Continue mesalamine # anxiety continue home medications DVT prophylaxis: Early ambulation Quality Stroke Does the patient have a stroke diagnosis?: No VTE Prior VTE?: No VTE Risk Level:: Medical - low VTE Device Contraindication: Treatment Not Indicated VTE Drug Contraindication: Treatment Not Indicated
[2021-03-17] MEDS: clonazePAM 0.5 MG TABLET PO ×3 (13:30→21:11)
[2021-03-17] MEDS: Mesalamine 400 MG CAP.DRTAB. 800 MG PO ×2 (13:30→21:11)
[2021-03-17] MEDS: Lactated Ringers 1,000 ML 100 ML IVCONT ×2 (13:51→23:54)
--- NOTE | 2021-03-17 13:52 | PC.NURSE ---
MD Canas made aware that pt still c/o pain despite PRN medications. MD asked for recommendations to which this RN relays pt states 2mg Dilaudid works the best for her. states current dilaudid dose will be gradually increased- pending new order placement. RN will continue to monitor.
[2021-03-17] MEDS: HYDROmorphone HCl 1 MG/ML SYRINGE IVPUSH ×3 (14:45→21:12)
--- NOTE | 2021-03-17 17:42 | PC.NURSE ---
Pt due to scheduled dilaudid at this time. When asked, pt requested to hold off at this time. RN mian continue to monitor.
--- NOTE | 2021-03-17 19:11 | PC.NURSE ---
Assumed care of pt at 1900. Pt awake and alert, resting in bed, in NAD. IV fluids infusing. Denies needs at this time. Awaiting inpatient bed assignment
[2021-03-17] MEDS: Zolpidem Tartrate 5 MG TABLET 10 MG PO (21:12)
--- NOTE | 2021-03-18 | ECG_ITS ---
Test Reason : qtc check Blood Pressure : / mmHG Vent. Rate : 073 BPM Atrial Rate : 073 BPM P-R Int : 194 ms QRS Dur : 134 ms QT Int : 438 ms P-R-T Axes : 064 -65 087 degrees QTc Int : 482 ms Normal sinus rhythm Left axis deviation Left bundle branch block Abnormal ECG When compared with ECG of 08-MAR-2019 04:32, No significant change was found Referred By: Jessica Canas Electronically Signed By:Rishi Brooks
[2021-03-18] MEDS: HYDROmorphone HCl 0.5 MG/0.5 ML SYRINGE 1 MG IVPUSH (03:11)
[2021-03-18 06:13] VITALS: BP 157/81; PULSE 73; RESP 16; O2SAT 96
[2021-03-18] MEDS: HYDROmorphone HCl 1 MG/ML SYRINGE IVPUSH ×5 (06:17→21:18)
[2021-03-18] MEDS: ondansetron HCL 4 MG/2 ML VIAL IVPUSH (06:20)
[2021-03-18 07:10] LABS: Hematocrit 31.9 % (37.0-47.0); Hemoglobin 10.6 g/dl (12.0-16.0); Mean Corpuscular HGB Conc 33.2 g/dl (31.0-35.0); Mean Corpuscular Hemoglobin 31.7 pg (27.0-33.0); Mean Corpuscular Volume 95.5 fL (80.0-98.0); Mean Platelet Volume 8.9 fL (9.4-12.3); Platelet Count 179 X10*3/uL (160-400); Red Blood Count 3.34 X10*6/uL (4.20-5.50); Red Cell Distribution Width 13.4 % (11.0-16.0); White Blood Count 4.3 X10*3/uL (4.8-10.8)
[2021-03-18 07:38] LABS: Anion Gap 10 (12-20); Blood Urea Nitrogen 6 mg/dL (9-16); Calcium 7.8 mg/dL (8.4-10.2); Carbon Dioxide 26 mmol/L (22-29); Chloride 106 mmol/L (96-108); Creatinine Clr Calc Pharmacy 89.8; Estimated Glomerular Filt Rate > 60; Glucose Random 83 mg/dL (60-115); Potassium 3.6 mmol/L (3.3-5.1); Sodium 138 mmol/L (135-145)
[2021-03-18 08:47] VITALS: BP 159/102; PULSE 80; RESP 16; TEMP 36.8; O2SAT 99
[2021-03-18] MEDS: clonazePAM 0.5 MG TABLET PO ×3 (09:27→21:06)
[2021-03-18] MEDS: Mesalamine 400 MG CAP.DRTAB. 800 MG PO ×3 (09:27→21:06)
[2021-03-18] MEDS: 0.9 % Sodium Chloride Flush 3 ML SYRINGE IVFLUSH (09:28)
[2021-03-18] MEDS: Lactated Ringers 1,000 ML 100 ML IVCONT ×2 (09:34→18:25)
--- NOTE | 2021-03-18 10:45 | P.PNIM_ITS ---
Subjective Subjective Date of Service: 03/18/21 Interval History: the patient was seen and evaluated this morning Laying in bed, Still complaining of recurrent attacks of pain Having some nausea And able to tolerate much of diet No reported other overnight events. Systemic review: No fever, chills or weakness No chest pain, palpitation No shortness of breath or coughing Reporting recurrent attacks of abdominal pain, severe in nature, associated with nausea No urinary symptoms No any rash or wounds Physical Exam Vital Signs: Vital Signs: Last Vital Signs Temp 98.3 F 03/18/21 08:47 Pulse 80 03/18/21 08:47 Resp 16 03/18/21 08:47 BP 159/102 H 03/18/21 08:47 Pulse Ox 99 03/18/21 08:47 BMI result Body Mass Index 20.1 Const: Other: Constitutional : Alert, interactive, in mild distress from pain Neck : Normal inspection, Supple Cardiovascular : RRR, S1 S2, no lower extremity edema Respiratory : Good bilateral air entry, no crackles, wheezes or rhonchi Gastrointestinal: soft, lax, decrease bowel sounds, generalized tenderness with no surgical signs appreciated Skin : Warm, Dry Neurological : Alert & oriented x3, No focal deficit Objective Data Active Medications Acetaminophen (Acetaminophen 325 Mg Tablet) 650 mg PO Q6H PRN PRN Reason: Pain, Mild (Pain Scale 1-3) Clonazepam (Clonazepam 0.5 Mg Tablet) 0.5 mg PO TID [facility] Last Admin: 03/18/21 09:27 Dose: 0.5 mg Documented by: DERRELL Dicyclomine HCl (Dicyclomine Hcl 10 Mg Capsule) 10 mg PO QIDACHS [facility] Last Admin: 03/18/21 09:28 Dose: Not Given Documented by: DERRELL Non-Admin Reason: See Note Hydromorphone HCl (Hydromorphone Hcl 1 Mg/Ml Syringe) 1 mg IVPUSH Q4H [facility]; Protocol Last Admin: 03/18/21 09:28 Dose: 1 mg Documented by: DERRELL Lactated Ringer's (Lr) 1,000 mls @ 100 mls/hr IVCONT .Q10H [facility] Last Admin: 03/18/21 09:34 Dose: 100 mls/hr Documented by: DERRELL Levofloxacin (Levaquin) 500 mg in 100 mls @ 100 mls/hr IV Q24H [facility] Mesalamine (Mesalamine 400 Mg Cap.Drtab.) 800 mg PO TID [facility] Last Admin: 03/18/21 09:27 Dose: 800 mg Documented by: DERRELL Methylprednisolone Sodium Succinate (Methylprednisolone Sod Succ 40 Mg/Ml Vial) 40 mg IVPUSH Q12H [facility] Ondansetron HCl (Ondansetron Hcl 4 Mg/2 Ml Vial) 4 mg IVPUSH Q8H PRN PRN Reason: Nausea and Vomiting Last Admin: 03/18/21 06:20 Dose: 4 mg Documented by: CARYN Sodium Chloride (0.9 % Sodium Chloride Flush 3 Ml Syringe) 3 ml IVFLUSH [facility] Last Admin: 03/18/21 09:28 Dose: 3 ml Documented by: DERRELL Zolpidem Tartrate (Zolpidem Tartrate 5 Mg Tablet) 5 mg PO BEDTIME PRN PRN Reason: Insomnia Labs CBC & Chem 7: 03/18/21 06:59 03/18/21 06:59 Labs: Laboratory Results - last 24 hr 03/18/21 03/18/21 06:59 06:59 MCV 95.5 MCH 31.7 MCHC 33.2 RDW 13.4 Plt Count 179 D MPV 8.9 L Absolute Nucleated RBC 0.000 Nucleated RBC % (auto) 0.0 Anion Gap 10 L Estim Creat Clear Calc 89.8 Estimated GFR > 60 Random Glucose 83 Calcium 7.8 L Assessment and Plan (1) Colitis: Status: Acute (2) Abdominal pain: Status: Acute Plan 45-year-old female with past medical history of radiation proctitis as well as recently diagnosed colitis presents to the hospital with complaints of abdominal pain # Abdominal pain /colitis likely 2/[address] of [address] CT of abd in february showed mild improvement, refused to repeat the CT scan this admission LA -ve, no leukocytosis, low CRP Started levofloxacin Started on IV methylprednisolone Pending GI evaluation clear liquid diet until evaluated by GI Dilaudid for pain control Continue mesalamine # anxiety continue home medications DVT prophylaxis: Early ambulation Quality Stroke Does the patient have a stroke diagnosis?: No VTE Prior VTE?: No VTE Risk Level:: Medical - low VTE Device Contraindication: Treatment Not Indicated VTE Drug Contraindication: Treatment Not Indicated
[2021-03-18] MEDS: levoFLOXacin/D5W 750 MG/150 ML PIGGYBACK 100 MG IV (11:34)
[2021-03-18] MEDS: methylPREDNISolone Sod Succ 40 MG/ML VIAL IVPUSH (11:35)
[2021-03-18] MEDS: Dicyclomine HCl 10 MG CAPSULE PO ×2 (11:35→21:05)
[2021-03-18 13:05] LABS: CDiff Gene PCR NEGATIVE (Negative)
--- NOTE | 2021-03-18 13:10 | CONS_ITS ---
DATE OF SERVICE: 03/18/2021 REFERRING PHYSICIAN: Jessica Canas MD REASON FOR CONSULTATION: Abdominal pain and history of colitis. HISTORY OF PRESENT ILLNESS: The patient is a pleasant 45-year-old woman, who was admitted to the hospital after presenting to the Emergency Department on March 16 with complaints of abdominal pain, nausea, vomiting, and diarrhea. She has a history of acute colitis diagnosed in September of this year, which was nonspecific as well as prior history of radiation with some radiation changes from her previous cervical cancer therapy as an outpatient. 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 She was most recently evaluated in February in the Emergency Department because of a COVID infection and at that time underwent CT scanning of the abdomen and pelvis, which showed some thickening in the sigmoid consistent with colitis seen on her previous films. There was also some thickening in the ileum noted, which was new. The patient has no prior history of Crohn disease. She was well until the day before admission when she developed fairly sudden onset of nausea, vomiting, and diarrhea without any obvious precipitating factors. She denies any ill contacts, suspect food injections or recent travel. She has not been on antibiotics. In the Emergency Department, she was evaluated, but declined CT scanning. Laboratory studies at that time showed a white count of 8.3 with a normal hematocrit. Chemistries were remarkable for an elevated CRP to 0.55. Since admission, she has been treated with IV fluids and pain medications. Her mesalamine has been continued as well as her dicyclomine and she was started on antibiotics and steroids this morning. Stool specimens have been ordered. PAST MEDICAL HISTORY: 1. Colitis as above. 2. Cervical cancer, status post radiation therapy. 3. Anxiety. CURRENT MEDICATIONS: Her current medication list is reviewed in the chart. ALLERGIES: MEDICATION ALLERGIES ARE REVIEWED WELL. FAMILY HISTORY: This is reviewed with the patient and is noncontributory. SOCIAL HISTORY: She denies drug and alcohol use. REVIEW OF SYSTEMS: SKIN: No pruritus. HEENT: Negative. CARDIOPULMONARY: She denies shortness of breath or chest pain. GASTROINTESTINAL: As above. She has had some nausea, but no vomiting today. GENITOURINARY: Negative. NEUROPSYCHIATRIC: Negative. PHYSICAL EXAMINATION: GENERAL: Shows a pleasant female, complaining of abdominal pain. VITAL SIGNS: Reviewed in the electronic medical record and show that she is somewhat hypertensive. SKIN: Anicteric. HEENT: Shows no scleral icterus. NECK: Without lymphadenopathy or thyromegaly. LUNGS: Clear HEART: Shows regular rate and rhythm. S1, S2. No murmur. ABDOMEN: Soft without focal masses. There is mild diffuse tenderness to palpation. There is no guarding or rebound. EXTREMITIES: Without edema. IMPRESSION: 1. Abdominal pain. 2. History of colitis. I would recommend obtaining CT scanning for further evaluation, given the significance of her complaints of abdominal pain. Stool specimens have been ordered and will be obtained. Continue abx and steroids pending stool test results. She may need further evaluation with lower GI tract endoscopy depending on the findings of her CT scan and stool specimens. This was discussed with the patient and her significant other. MD BOB Stubbs/SENIA / [id number] MTDD
[2021-03-18 13:11] LABS: Leukocytes Stool Qualitative FEW: < 2/OIF (NEGATIVE)
[2021-03-18 13:51] LABS: Appearance Urine CLEAR; Color Urine STRAW; Glucose Urine UA NEG (NEG); Leukocyte Esterase Urine NEG (NEG); Nitrite Urine NEG (NEG); Specific Gravity - Urine <= 1.005 (1.005-1.025); UACC Culture Trigger NO; Urine Blood TRACE (NEG); Urine Ketones 15 MG/DL (NEG); Urine Protein NEG (NEG-TRACE)
--- NOTE | 2021-03-18 14:08 | MHC.CM.PN ---
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 CURRENT DC PLAN IS HOME WITH NO SERVICES FAMILY TO TRANSPORT
[2021-03-18 14:15] LABS: WBC Urine 0 /HPF (0-4)
[2021-03-18 14:17] LABS: RBC Urine 0-2 /HPF (0)
[2021-03-18] MEDS: iohexoL 350 MG/ML 100 ML INFUS..BTL 85 ML IV (14:22)
[2021-03-18] MEDS: Barium Sulfate Oral (Mocha) 450 ML ORAL.SUSP PO (14:23)
[2021-03-18 14:54] VITALS: BP 137/88; PULSE 72; RESP 14; TEMP 36.5; O2SAT 97
[2021-03-18 18:00] VITALS: BP 135/69; PULSE 77; RESP 18; TEMP 37.3; O2SAT 97
[2021-03-18] MEDS: Zolpidem Tartrate 5 MG TABLET PO (21:17)
[2021-03-19] VITALS (9 sets, daily range): BP systolic 132–157; BP diastolic 69–83; PULSE 68–87; RESP 14–18; TEMP 36.3–37.2; O2SAT 97–99; BMI 20.1
[2021-03-19] MEDS: methylPREDNISolone Sod Succ 40 MG/ML VIAL IVPUSH ×2 (00:23→11:13)
[2021-03-19] MEDS: HYDROmorphone HCl 1 MG/ML SYRINGE IVPUSH ×3 (00:29→18:28)
[2021-03-19] MEDS: Lactated Ringers 1,000 ML 100 ML IVCONT ×2 (02:21→14:25)
[2021-03-19 07:55] LABS: Anion Gap 11 (12-20); Blood Urea Nitrogen 5 mg/dL (9-16); Calcium 8.8 mg/dL (8.4-10.2); Carbon Dioxide 29 mmol/L (22-29); Chloride 104 mmol/L (96-108); Creatinine Clr Calc Pharmacy 84.2; Estimated Glomerular Filt Rate > 60; Glucose Random 123 mg/dL (60-115); Potassium 4.5 mmol/L (3.3-5.1); Sodium 139 mmol/L (135-145)
[2021-03-19] MEDS: Mesalamine 400 MG CAP.DRTAB. 800 MG PO ×3 (08:50→20:24)
[2021-03-19] MEDS: clonazePAM 0.5 MG TABLET PO ×3 (08:50→20:25)
[2021-03-19] MEDS: Dicyclomine HCl 10 MG CAPSULE PO ×4 (08:50→22:26)
[2021-03-19] MEDS: 0.9 % Sodium Chloride Flush 3 ML SYRINGE IVFLUSH (08:52)
[2021-03-19] MEDS: levoFLOXacin/D5W 750 MG/150 ML PIGGYBACK 100 MG IV (11:13)
--- NOTE | 2021-03-19 11:56 | PC.NURSE ---
pt off unit to [facility] for procedure with dr willams
--- NOTE | 2021-03-19 12:31 | P.CONAN_ITS ---
HPI - Anesthesia Eval Consult details Narrative: 45 F for flex sigmoidoscopy cervical cancer , young colitis , LBBB PMFSH Active Problems Active Problems: All Active Problems (Updated 03/16/21 @ 21:01 by Edgar Badillo MD) COVID-19 (Acute) Abdominal pain (Acute) Colitis (Acute) Pancolitis (Acute) Past Medical History Medical History Anxiety Cervical cancer Cholecystectomy planned Colitis Colitis Radiation cystitis Family History Family History (Updated 03/17/21 @ 06:22 by Candie Pierre MD) Other No family history of coronary artery disease Family history of problems with anesthesia: No Surgical History Surgical History Hx of elbow surgery Tubal ligation status History of Problems with Anesthesia: No Social History Social History Household Members: Significant Other Housing: House Do you presently have visiting nurse or other home services: No Alcohol intake: never Patient Tobacco Use Status: Current someday Tobacco user Tobacco use type: Cigarette Cigarettes Per Day: 3 Years Smoked: 20 Smoked in Last 30 Days: Yes Second Hand Smoke Exposure: No Use of substances other than those prescribed or required for medical reasons: No Advance Directives: No Advance Directives Information Provided: Yes Advance Directives Date on File: 09/10/20 service: No Current occupational status: employed Meds Allergies Allergy/AdvReac Type Severity Reaction Status Date / Time guaifenesin [GUAIFENESIN] Allergy Intermediate HIVES Verified 02/20/21 11:10 metaproterenol [From Alupent] Allergy Mild PALPITATIONS, Verified 02/20/21 11:10 RASH Active Medications: Current Medications Acetaminophen (Acetaminophen 325 Mg Tablet) 650 mg PO Q6H PRN PRN Reason: Pain, Mild (Pain Scale 1-3) Clonazepam (Clonazepam 0.5 Mg Tablet) 0.5 mg PO TID [facility] Last Admin: 03/19/21 08:50 Dose: 0.5 mg Documented by: Dicyclomine HCl (Dicyclomine Hcl 10 Mg Capsule) 10 mg PO QIDACHS [facility] Last Admin: 03/19/21 11:13 Dose: 10 mg Documented by: Hydromorphone HCl (Hydromorphone Hcl 1 Mg/Ml Syringe) 1 mg IVPUSH Q3H PRN; Protocol PRN Reason: Pain, Severe (Pain Scale 7-10) Last Admin: 03/19/21 11:03 Dose: 1 mg Documented by: Lactated Ringer's (Lr) 1,000 mls @ 100 mls/hr IVCONT .Q10H [facility] Last Admin: 03/19/21 02:21 Dose: 100 mls/hr Documented by: Levofloxacin (Levaquin) 750 mg in 150 mls @ 100 mls/hr IV Q24H [facility] Last Admin: 03/19/21 11:13 Dose: 100 mls/hr Documented by: Mesalamine (Mesalamine 400 Mg Cap.Drtab.) 800 mg PO TID [facility] Last Admin: 03/19/21 08:50 Dose: 800 mg Documented by: Methylprednisolone Sodium Succinate (Methylprednisolone Sod Succ 40 Mg/Ml Vial) 40 mg IVPUSH Q12H [facility] Last Admin: 03/19/21 11:13 Dose: 40 mg Documented by: Patient Own Medication ( Estarylla) 1 each PO DAILY [facility] Last Admin: 03/19/21 10:42 Dose: 1 each Documented by: Ondansetron HCl (Ondansetron Hcl 4 Mg/2 Ml Vial) 4 mg IVPUSH Q8H PRN PRN Reason: Nausea and Vomiting Last Admin: 03/18/21 06:20 Dose: 4 mg Documented by: Sodium Chloride (0.9 % Sodium Chloride Flush 3 Ml [facility]) [facility] Admin: 03/19/21 08:52 Dose: 3 ml Documented by: Zolpidem Tartrate (Zolpidem Tartrate 5 Mg Tablet) 5 mg PO BEDTIME PRN PRN Reason: Insomnia Last Admin: 03/18/21 21:17 Dose: 5 mg Documented by: Home Medications Medication Instructions Recorded Confirmed Last Taken Type clonazepam 0.5 mg tablet 0.5 mg PO TID 09/09/20 03/16/21 01/04/21 History norgestimate 0.25 mg-ethinyl 1 tab PO DAILY 09/09/20 03/16/21 01/04/21 History estradiol 35 mcg tablet (Estarylla) oxycodone 5 mg tablet 1 tab PO TID PRN 09/09/20 03/16/21 01/04/21 History zolpidem 12.5 mg tablet,extended 1 tab PO BEDTIME PRN 09/09/20 03/16/21 01/03/21 History release,multiphase mesalamine 400 mg capsule (with 2 cap PO TID 03/16/21 03/16/21 Unknown History delayed release tablets inside) Exam Exam Date and Time: March 19, 2021 1231 Height,Weight and Vital Signs: Height 5 ft 2 in Weight 49.895 kg Last Vital Signs Temp 98.9 F 03/19/21 01:53 Pulse 69 03/19/21 11:30 Resp 18 03/19/21 11:30 BP 153/75 H 03/19/21 11:30 Pulse Ox 98 03/19/21 11:30 Pertinent Lab Results Pertinent Lab Results: Laboratory Tests 03/16/21 03/16/21 03/16/21 18:41 18:41 18:41 WBC 8.3 RBC 3.90 L Hgb 12.4 Hct 37.3 MCV 95.6 MCH 31.8 MCHC 33.2 RDW 13.3 Plt Count 233 MPV 9.1 L Immature Gran % (Auto) 0.4 Neut % (Auto) 80.6 H Lymph % (Auto) 11.6 L Gregory % (Auto) 6.2 Eos % (Auto) 1.0 Baso % (Auto) 0.2 Lymph # (Auto) 1.0 L Gregory # (Auto) 0.5 Eos # (Auto) 0.1 Baso # (Auto) 0.0 Abs Immat Gran (auto) 0.03 Absolute Neuts (auto) 6.7 Absolute Nucleated RBC 0.000 Nucleated RBC % (auto) 0.0 Smear Tech's Comments Sodium 138 Potassium 3.5 Chloride 104 Carbon Dioxide 23 Anion Gap 15 BUN 11 D Creatinine 0.76 Estim Creat Clear Calc 72.0 Estimated GFR > 60 Random Glucose 87 Lactic Acid 0.7 Calcium 8.9 D Total Bilirubin 0.8 AST 12 ALT 9 Alkaline Phosphatase 49 C-Reactive Protein 0.55 H Total Protein 6.2 L Albumin 3.7 Urine Color Urine Appearance Urine pH Ur Specific [place] Urine Protein Urine Glucose (UA) Urine Ketones Urine Blood Urine Nitrite Ur Leukocyte Esterase Urine RBC Urine WBC Ur Squamous Epith Cells Urine Bacteria Stool Leukocytes, Qual C. difficile Tox B Gene COVID-19 (JANIS) COVID-19 Clin Com 03/16/21 03/17/21 03/17/21 22:07 07:11 07:11 WBC 7.6 RBC 3.81 L Hgb 12.0 Hct 36.0 L MCV 94.5 MCH 31.5 MCHC 33.3 RDW 13.2 Plt Count 249 MPV 9.2 L Immature Gran % (Auto) 0.3 Neut % (Auto) 90.7 H Lymph % (Auto) 6.7 L Gregory % (Auto) 2.2 Eos % (Auto) 0.0 Baso % (Auto) 0.1 Lymph # (Auto) 0.5 L Gregory # (Auto) 0.2 Eos # (Auto) 0.0 Baso # (Auto) 0.0 Abs Immat Gran (auto) 0.02 Absolute Neuts (auto) 6.9 Absolute Nucleated RBC 0.000 Nucleated RBC % (auto) 0.0 Smear Tech's Comments VERIFIED Sodium 136 Potassium 3.7 Chloride 107 Carbon Dioxide 18 L Anion Gap 15 BUN 8 L Creatinine 0.71 Estim Creat Clear Calc 77.1 Estimated GFR > 60 Random Glucose 120 H Lactic Acid Calcium 7.7 L D Total Bilirubin AST ALT Alkaline Phosphatase C-Reactive Protein Total Protein Albumin Urine Color Urine Appearance Urine pH Ur Specific [place] Urine Protein Urine Glucose (UA) Urine Ketones Urine Blood Urine Nitrite Ur Leukocyte Esterase Urine RBC Urine WBC Ur Squamous Epith Cells Urine Bacteria Stool Leukocytes, Qual C. difficile Tox B Gene COVID-19 (JANIS) Negative COVID-19 Clin Com See Note 03/18/21 03/18/21 03/18/21 06:59 06:59 11:40 WBC 4.3 L RBC 3.34 L Hgb 10.6 L Hct 31.9 L MCV 95.5 MCH 31.7 MCHC 33.2 RDW 13.4 Plt Count 179 D MPV 8.9 L Immature Gran % (Auto) Neut % (Auto) Lymph % (Auto) Gregory % (Auto) Eos % (Auto) Baso % (Auto) Lymph # (Auto) Gregory # (Auto) Eos # (Auto) Baso # (Auto) Abs Immat Gran (auto) Absolute Neuts (auto) Absolute Nucleated RBC 0.000 Nucleated RBC % (auto) 0.0 Smear Tech's Comments Sodium 138 Potassium 3.6 Chloride 106 Carbon Dioxide 26 Anion Gap 10 L BUN 6 L Creatinine 0.61 Estim Creat Clear Calc 89.8 Estimated GFR > 60 Random Glucose 83 Lactic Acid Calcium 7.8 L Total Bilirubin AST ALT Alkaline Phosphatase C-Reactive Protein Total Protein Albumin Urine Color Urine Appearance Urine pH Ur Specific [place] Urine Protein Urine Glucose (UA) Urine Ketones Urine Blood Urine Nitrite Ur Leukocyte Esterase Urine RBC Urine WBC Ur Squamous Epith Cells Urine Bacteria Stool Leukocytes, Qual C. difficile Tox B Gene NEGATIVE COVID-19 (JANIS) COVID-19 Clin Com 03/18/21 03/18/21 03/19/21 11:40 13:39 07:16 WBC RBC Hgb Hct MCV MCH MCHC RDW Plt Count MPV Immature Gran % (Auto) Neut % (Auto) Lymph % (Auto) Gregory % (Auto) Eos % (Auto) Baso % (Auto) Lymph # (Auto) Gregory # (Auto) Eos # (Auto) Baso # (Auto) Abs Immat Gran (auto) Absolute Neuts (auto) Absolute Nucleated RBC Nucleated RBC % (auto) Smear Tech's Comments Sodium 139 Potassium 4.5 D Chloride 104 Carbon Dioxide 29 Anion Gap 11 L BUN 5 L Creatinine 0.65 Estim Creat Clear Calc 84.2 Estimated GFR > 60 Random Glucose 123 H Lactic Acid Calcium 8.8 D Total Bilirubin AST ALT Alkaline Phosphatase C-Reactive Protein Total Protein Albumin Urine Color STRAW Urine Appearance CLEAR Urine pH 6.0 Ur Specific [place] <= 1.005 Urine Protein NEG Urine Glucose (UA) NEG Urine Ketones 15 Urine Blood TRACE Urine Nitrite NEG Ur Leukocyte Esterase NEG Urine RBC 0-2 Urine WBC 0 Ur Squamous Epith Cells NONE Urine Bacteria NONE Stool Leukocytes, Qual FEW: < 2/OIF C. difficile Tox B Gene COVID-19 (JANIS) COVID-19 Clin Com Airway Mallampati Class: II TM Dist: >3cm Neck ROM: Full Loose/Missing/Broken Teeth: Yes Heart: rrr Lungs: bl breath sounds Assessment and Plan Assessment Anesthesia Assessment: Anesthesia Plan Discussed Final Anesthetic Review Family History of Problems with Anesthesia: No History of Problems with Anesthesia: No NPO: Yes ASA Class: III Final Preanesthetic Review: Meds/Allgs Chart Reviewed, Consent Obtained/Reviewed and Anes Risks/Benef Reviewed Patient Risk: Intermediate Procedure Risk: Intermediate Anesthetic Plan Anesthetic Plan: MAC: Disposition: Inp. Admit - Standard Bed
--- NOTE | 2021-03-19 13:07 | P.PNIM_ITS ---
Subjective Subjective Date of Service: 03/19/21 Interval History: the patient was seen and evaluated this morning Laying in bed, pain improved significantly Able to tolerate some liquids No reported other overnight events. Systemic review: No fever, chills or weakness No chest pain, palpitation No shortness of breath or coughing Pain improved significantly No urinary symptoms No any rash or wounds Physical Exam Vital Signs: Vital Signs: Last Vital Signs Temp 98.8 F 03/19/21 12:38 Pulse 85 03/19/21 12:38 Resp 15 03/19/21 12:38 BP 152/75 H 03/19/21 12:38 Pulse Ox 98 03/19/21 12:38 BMI result Body Mass Index 20.1 Const: Other: Constitutional : Alert, interactive, in mild distress from pain Neck : Normal inspection, Supple Cardiovascular : RRR, S1 S2, no lower extremity edema Respiratory : Good bilateral air entry, no crackles, wheezes or rhonchi Gastrointestinal: soft, lax, decrease bowel sounds, no significant tenderness with no surgical signs appreciated Skin : Warm, Dry Neurological : Alert & oriented x3, No focal deficit Objective Data Active Medications Acetaminophen (Acetaminophen 325 Mg Tablet) 650 mg PO Q6H PRN PRN Reason: Pain, Mild (Pain Scale 1-3) Clonazepam (Clonazepam 0.5 Mg Tablet) 0.5 mg PO TID [facility] Last Admin: 03/19/21 08:50 Dose: 0.5 mg Documented by: JOSÉ Dicyclomine HCl (Dicyclomine Hcl 10 Mg Capsule) 10 mg PO QIDACHS [facility] Last Admin: 03/19/21 11:13 Dose: 10 mg Documented by: JOSÉ Hydromorphone HCl (Hydromorphone Hcl 1 Mg/Ml Syringe) 1 mg IVPUSH Q3H PRN; Protocol PRN Reason: Pain, Severe (Pain Scale 7-10) Last Admin: 03/19/21 11:03 Dose: 1 mg Documented by: JOSÉ Lactated Ringer's (Lr) 1,000 mls @ 100 mls/hr IVCONT .Q10H [facility] Last Admin: 03/19/21 02:21 Dose: 100 mls/hr Documented by: KEMAL Levofloxacin (Levaquin) 750 mg in 150 mls @ 100 mls/hr IV Q24H [facility] Last Admin: 03/19/21 11:13 Dose: 100 mls/hr Documented by: JOSÉ Mesalamine (Mesalamine 400 Mg Cap.Drtab.) 800 mg PO TID [facility] Last Admin: 03/19/21 08:50 Dose: 800 mg Documented by: JOSÉ Methylprednisolone Sodium Succinate (Methylprednisolone Sod Succ 40 Mg/Ml Vial) 40 mg IVPUSH Q12H [facility] Last Admin: 03/19/21 11:13 Dose: 40 mg Documented by: JOSÉ Patient Own Medication ( Estarylla) 1 each PO DAILY [facility] Last Admin: 03/19/21 10:42 Dose: 1 each Documented by: BEAU Ondansetron HCl (Ondansetron Hcl 4 Mg/2 Ml Vial) 4 mg IVPUSH Q8H PRN PRN Reason: Nausea and Vomiting Last Admin: 03/18/21 06:20 Dose: 4 mg Documented by: CARYN Sodium Chloride (0.9 % Sodium Chloride Flush 3 Ml Syringe) 3 ml IVFLUSH QSHIFT [facility] Last Admin: 03/19/21 08:52 Dose: 3 ml Documented by: JOSÉ Zolpidem Tartrate (Zolpidem Tartrate 5 Mg Tablet) 5 mg PO BEDTIME PRN PRN Reason: Insomnia Last Admin: 03/18/21 21:17 Dose: 5 mg Documented by: JUAN RAMON Labs CBC & Chem 7: 03/18/21 06:59 03/19/21 07:16 Labs: Laboratory Results - last 24 hr 03/18/21 03/18/21 03/19/21 11:40 13:39 07:16 Anion Gap 11 L Estim Creat Clear Calc 84.2 Estimated GFR > 60 Random Glucose 123 H Calcium 8.8 D Urine Color STRAW Urine Appearance CLEAR Urine pH 6.0 Ur Specific [place] <= 1.005 Urine Protein NEG Urine Glucose (UA) NEG Urine Ketones 15 Urine Blood TRACE Urine Nitrite NEG Ur Leukocyte Esterase NEG Urine RBC 0-2 Urine WBC 0 Ur Squamous Epith Cells NONE Urine Bacteria NONE Stool Leukocytes, Qual FEW: < 2/OIF Microbiology Microbiology Results: Microbiology 03/18/21 11:40 Stool Culture - Preliminary Stool Normal so far. Assessment and Plan (1) Colitis: Status: Acute Plan 45-year-old female with past medical history of radiation proctitis as well as recently diagnosed colitis presents to the hospital with complaints of abdominal pain # colitis CT of abd showing evidence of colitis, worsen previous MH in February Continue levofloxacin Continue IV methylprednisolone GI evaluation appreciated, to do colonoscopy today clear liquid diet , advanced as tolerated Dilaudid for pain control Continue mesalamine # anxiety continue home medications DVT prophylaxis: Early ambulation Quality Stroke Does the patient have a stroke diagnosis?: No VTE Prior VTE?: No VTE Risk Level:: Medical - low VTE Device Contraindication: Treatment Not Indicated VTE Drug Contraindication: Treatment Not Indicated
--- NOTE | 2021-03-19 13:48 | P.BOP_ITS ---
Brief Operative Note Date of Service: 03/19/21 Pre-op diagnosis: colitis Post-op diagnosis: same Procedure: colonoscopy Surgeon: Juan Carlos Mejia Anesthesia: MAC Was an Certified Personal Finance Counselor used for this Procedure?: No Estimated blood loss (mL): 5 Pathology: other (colon biopsies) Condition: stable Disposition: PACU
--- NOTE | 2021-03-19 13:49 | PM.EVENT ---
Event Note Date of Service: 03/19/21 Event Note: colonoscopy note dictated nonspecific colitis in desc/sigmoid colon, moderate. biopsied Rec: advance diet cont steroids ok to stop abx when final stool cx is neg. can d/c home tomorrow on prednisone 60 mg/day tapering by 10 mg weekly if clinically stable. f/u with me in office.
--- NOTE | 2021-03-19 14:14 | PC.NURSE ---
RETURNS FROM [facility] . UNEVENTFUL PROCEDURE, PLAN IS TO PROGRESS DIET. PT AWAKE ON RETURN
--- NOTE | 2021-03-19 14:18 | OP_ITS ---
SURGEON: Juan Carlos Mejia MD INDICATIONS: Colitis. PREOPERATIVE DIAGNOSIS: POSTOPERATIVE DIAGNOSIS: PROCEDURE PERFORMED: Colonoscopy to the cecum with biopsy. ESTIMATED BLOOD LOSS: COMPLICATIONS: ANESTHESIA: ASSISTANTS: SPECIMENS: MEDICATIONS: Monitored anesthesia care. DESCRIPTION OF PROCEDURE: History and physical were performed. The risks and benefits of the procedure were explained to the patient. Informed consent was obtained. The patient was placed in the left lateral decubitus position. A digital rectal exam was performed and was found to be normal. The Olympus pediatric video colonoscope was introduced into the rectum and advanced to the cecum without difficulty. The cecum was identified by transillumination, palpation, and identification of ileocecal valve. Examination was performed. The scope was removed. She tolerated the procedure well and was taken to recovery in stable condition. This procedure had initially been scheduled as a sigmoidoscopy, but the cecum was reached easily allowing for more full examination of the colon. FINDINGS: The colon was unprepped, so the exam was limited. The mucosa of the cecum after washing and suctioning as well as copious irrigation appeared normal. THIS was 2 in the right colon as well as the transverse colon. In the left colon, there was colitis involving the descending and sigmoid colon with erythema, edema, and loss of vascular pattern. The appearance of the colitis was nonspecific. Biopsies were obtained from throughout the colon. Retroflexed examination was normal. IMPRESSION: Colitis. RECOMMENDATION: 1. Follow up the biopsy results. 2. Continue present medical regimen. 3. Advanced diet. 4. The patient may be discharged tomorrow if she tolerates a solid diet. I would recommend switching her to oral prednisone as an outpatient 60 mg daily and tapering by 10 mg weekly. Antibiotics may be discontinued if her cultures remain negative. MD BOB Stubbs/SENIA / [id number]
--- NOTE | 2021-03-19 16:30 | PC.NURSE ---
PT SLEEPING IN NAPS.
[2021-03-19] MEDS: ondansetron HCL 4 MG/2 ML VIAL IVPUSH (18:28)
[2021-03-19] MEDS: Zolpidem Tartrate 5 MG TABLET PO (20:25)
--- NOTE | 2021-03-19 21:00 | PC.NURSE ---
Assumed care of pt Pt resting on stretcher Pt medicated per APR Pt states pain controlled at this time. NAD Pt tolerating regular diet. Will continue to monitor
[2021-03-20] MEDS: methylPREDNISolone Sod Succ 40 MG/ML VIAL IVPUSH ×2 (00:14→11:47)
[2021-03-20] MEDS: 0.9 % Sodium Chloride Flush 3 ML SYRINGE IVFLUSH (00:14)
[2021-03-20] MEDS: HYDROmorphone HCl 1 MG/ML SYRINGE IVPUSH (00:18)
--- NOTE | 2021-03-20 01:13 | PC.NURSE ---
Pt tolerating PO juice and regular diet Denies any n/v/diarrhea LR not restarted when pt came back from colonoscopy. Dr. Pierre aware and ok with pausing LR as long as pt tolerating PO Will continue to monitor
[2021-03-20 02:07] VITALS: RESP 16
[2021-03-20 05:45] VITALS: RESP 14
--- NOTE | 2021-03-20 08:16 | PC.NURSE ---
Pt received from shift boss: Pt AOX4 and offers no complaints. Pt states she was able to tolerate her dinner last night and no isues with breakfast this morning. Pt up to nurse's station with no issue and requesting when hospitalisit at bedside-- pt wants to go home. Pt heart sounds regular and lugs clear. Pt abd soft and non-tender. Pt denies any N/V/D.
[2021-03-20 08:38] VITALS: BP 140/72; PULSE 72; RESP 16; TEMP 36.3; O2SAT 98
[2021-03-20] MEDS: Mesalamine 400 MG CAP.DRTAB. 800 MG PO (08:39)
[2021-03-20] MEDS: clonazePAM 0.5 MG TABLET PO (08:39)
[2021-03-20] MEDS: Dicyclomine HCl 10 MG CAPSULE PO (08:40)
--- NOTE | 2021-03-20 10:42 | PM.DS ---
DS: Providers Provider Date of Service: 03/20/21 Date of admission: 03/16/21 21:33 Primary care physician: Edmundo Burnham MD Consults: 03/17/21 06:24 Consult to Gastroenterology Routine Consulting Provider: Juan Carlos Mejia Reason for consultation: abd pain w hx of colitis, pt known Has provider been notified: No DS: Diagnosis Discharge Diagnosis (1) Colitis: Status: Acute DS: Summary Hospital Course Hospital Course: Admission note HPI ?35-year-old female with past medical history of cervical cancer, radiation proctitis/ cystitis, and recently diagnosed colitis who presents to the hospital with complaints of abdominal pain as well as several episodes of vomiting.? Patient has had recurrent admission recently for the same problem.? She reports that her symptoms started 1 day ago, was severe, diffuse, 10/10 nonradiating abdominal pain.? she describes it as a sensation of? chewing in her guts. Associated with 10 plus episodes of vomiting.? She has also had 2-3 episodes of diarrhea.? Both vomiting and diarrhea nonbloody.? ? patient otherwise denies any chest pain, no shortness of breath, no headache or change in vision, no fever chills, no urinary symptoms and no lower extremity edema.? On arrival to the ED patient hemodynamically stable with slightly elevated blood pressure Labs reviewed, unremarkable. ?patient had a CT of the abdomen in February, and? does not feel that a repeat CT would be beneficial. Hospital course The patient was admitted for evaluation of abdominal pain. She refused to do CT scan at time of presentation. Received antibiotic and steroids with significant improvement in her symptoms for presumed colitis. Seen by Gastroenterology as a CT scan was done showing worsening colitis from most recent study in February. Recommended treatment with steroids with tapering dose at time of discharge as her blood and stool cultures remain negative during the hospital stay. A colonoscopy was done showing evidence of colitis but it was not totally clear so will need to be repeated with better preparation of the bowels. Biopsies were taken. To be discharged home on prednisone tapering dose starting with 60 mg daily, to decrease by 10 mg every week. To use dicyclomine as needed for abdominal discomfort To follow-up with Gastroenterology as outpatient Time Spent with Patient Time attestation: Total time spent providing and/or coordinating discharge services: Discharge coordination time: Greater than 30 minutes Quality: Stroke Does the patient have a stroke diagnosis?: No Physical Exam Vital Signs: Vital Signs: Last Vital Signs Temp 97.4 F 03/20/21 08:38 Pulse 72 03/20/21 08:38 Resp 16 03/20/21 08:38 BP 140/72 H 03/20/21 08:38 Pulse Ox 98 03/20/21 08:38 BMI result Body Mass Index 20.1 Const: Other: Constitutional : Alert, interactive, not in distress Neck : Normal inspection, Supple Cardiovascular : RRR, S1 S2, no lower extremity edema Respiratory : Good bilateral air entry, no crackles, wheezes or rhonchi Gastrointestinal: soft, lax, decrease bowel sounds, no significant tenderness with no surgical signs appreciated Skin : Warm, Dry Neurological : Alert & oriented x3, No focal deficit DS: Data Data Completed and Pending Completed studies during hospitalization [Text1]: Procedures Excision of Ileum, Via Natural or Artificial Opening Endoscopic, Diagnostic (09/09/20) Pending studies at discharge: Pending at discharge 03/19/21 13:09 Surgical [PTH] Routine Labs on day of discharge: Preliminary micro results at discharge 03/18/21 11:40 Stool Culture - Preliminary Stool Normal so far. Imaging CT scan - abdomen: Radiologist's impression: ITS Impressions Abdomen/Pelvis CT 03/18/21 14:21 IMPRESSION: 1. Submucosal thickening and edema of left colon from splenic flexure through the sigmoid colon consistent with a mild colitis. The colitis has worsened since prior study of 02/20/2021 with involvement now seen of the descending colon which was not present on the prior exam. 2. Mild dilatation of small bowel loops with air-fluid levels. No sharp transition point. Ileus is favored over obstruction. Edema in the submucosal small bowel loops which can be sequela of the ascites versus enteritis. No air in the bowel wall. 3. Moderate volume of abdominal ascites. This is new since CAT scan 02/20/2021 Fleischner guidelines were followed. This critical result was discussed with at 04:20pm on 03/18/2021 and it was ascertained that the content and urgency of the report was understood at the time of direct communication. Discharge Plan Discharge Patient Disposition: Home, Self-Care Discharge Diagnosis: Colitis Referrals: Edmundo Burnham MD [Primary Care Provider] - 1 Week Discharge Medications: New dicyclomine 10 mg Capsule 10 mg PO QIDACHS PRN (Reason: Abdominal Discomfort) 120 Days 0RF prednisone 10 mg tablet See Taper mg PO DAILY Qty: 150 0RF Taper: Prednisone 60 mg daily for 7 Days and 0 Hour 50 mg daily for 7 Days and 0 Hour 40 mg daily for 7 Days and 0 Hour 30 mg daily for 7 Days and 0 Hour 20 mg daily for 7 Days 10 mg daily for 7 Days Continued norgestimate-ethinyl estradiol [Estarylla] 0.25-35 mg-mcg tablet 1 tab PO DAILY 0RF clonazepam 0.5 mg tablet 0.5 mg PO TID 0RF oxycodone 5 mg tablet 1 tab PO TID PRN (Reason: Pain (Scale Score 7-10)) 0RF zolpidem 12.5 mg tablet,ext release multiphase 1 tab PO BEDTIME PRN (Reason: Sleep) 0RF mesalamine 400 mg capsule (with del rel tablets) 2 cap PO TID 0RF Discharge Orders: Discharge Order (Routine); Ordered 03/20/21 Ordered By: Jessica Canas Activity on Discharge: As tolerated Stand Alone Forms: Patient Portal Discharge page Care Plan Goals: Read below Health Concerns: Read below Plan of Treatment: Read below Assessment: You were admitted to the hospital for evaluation of abdominal pain. Found to have an evidence of colitis on CT of the abdomen. Treated with IV steroids, antibiotics and fluids with good response. Evaluated by Dr. Mejia from Gastroenterology who recommended tapering dose of steroids and follow-up as outpatient in the office. Take prednisone as prescribed it. Starting with 60 mg once daily for 1 week and decrease by 10 mg every week. Use dicyclomine as needed for pain To follow-up with Dr. Mejia in the office as scheduled for biopsy results and further evaluation.
--- NOTE | 2021-03-20 11:49 | PC.NURSE ---
Pt D/C from ED overflow with instructions and eprescriptions. Pt states understanding and denies any further questions. Pt ambulated to ER entrance for ride home. All IV's removed prior to D/C.
--- NOTE | 2021-03-20 14:53 | MHC.CM.PN ---
PT DISCHARGED HOME SELF-CARE W/FAMILY FOR TRANSPORT.
== END 2021-03-20 11:00 | disposition home or self-care (01) | DRG 249 ==
LOC: HO.ED 21:01 → HO.EDOVER 03-17 07:22
PROVIDERS: Internal Medicine Gastroenterology; Admitting Provider Internal Medicine; Emergency Provider Internal Medicine; PCP Internal Medicine; Visit Provider Student in an Organized Health Care Education/Training Program
PROC: 0DJD8ZZ Inspection of Lower Intestinal Tract, Via Natural or Artificial Opening Endoscopic (ICD-10-PCS; CPT 45330; principal; 2021-03-19 12:50)
DX: K52.9 Noninfective gastroenteritis and colitis, unspecified (principal); F17.210 Nicotine dependence, cigarettes, uncomplicated; F41.9 Anxiety disorder, unspecified; Z20.822 Contact with and (suspected) exposure to COVID-19; Z85.41 Personal history of malignant neoplasm of cervix uteri; Z71.6 Tobacco abuse counseling; Z79.899 Other long term (current) drug therapy
CPT/HCPCS: 36415; 74177; 80048; 80053; 81001; 81003; 83605; 85025; 85027; 86140; 87045; 87046; 87177; 87209; 87493; 87635; 88305; 89055; 93005; 96361; 96374; 96375; 99285; J1170; J1956; J2270; J2405; J2920; J2930; J3010; Q9967

== ENCOUNTER 2021-04-06 12:00 | Inpatient (IN) | payer MEDICAID, SELFPAY ==
[2021-04-06] VITALS (8 sets, daily range): BP systolic 122–133; BP diastolic 70–85; PULSE 73–113; RESP 16–20; TEMP 36.6–37.7; O2SAT 95–99; BMI 20.1
--- NOTE | ~2021-04-06 | CT_ITS ---
EXAMINATION: CT ABDOMEN AND PELVIS WITHOUT CONTRAST CLINICAL INFORMATION: colitis, increased abdominal pain and distension. . COMPARISON: 03/18/2019. TECHNIQUE: Multidetector volumetric imaging was performed from the superior aspect of the liver through the pubic symphysis without contrast per request. Sagittal and coronal reformatted images were obtained on the technologist workstation. This CT examination was performed using dose optimization techniques as appropriate, variously including the following: *Automated exposure control *Adjustment of mA and/or kV according to patient size (this includes techniques or standardized protocols for targeted exams where dose is matched to indication/reason for exam; i.e. extremities or head) *Use of iterative reconstruction technique DLP: 331 mGy-cm. FINDINGS: LUNG BASES: The visualized lung bases are unremarkable. PERITONEAL SPACE: No free air. Small volume ascites is seen extending into the pelvis. This measures simple fluid density. LIVER, GALLBLADDER, BILIARY TREE: The non-contrast liver is normal in size, shape, and attenuation. No focal hepatic lesion or biliary ductal dilatation is present. The gallbladder is surgically absent. PANCREAS: Unremarkable. SPLEEN: Unremarkable. ADRENAL GLANDS: Unremarkable. KIDNEYS AND URETERS: The kidneys are normal in size, shape, and attenuation. No hydronephrosis, hydroureter, or calculi seen. No perinephric stranding. BLADDER: Unremarkable. GASTROINTESTINAL TRACT: Again there is abnormal appearance to the colon difficult to define in part due to the degree of decompression in some areas. This does appear to be less prominent however when compared to the 03/18/2021 study. There is still persistent abnormal wall thickening within the mid to distal small bowel loops consistent with underlying enterocolitis. ABDOMINAL WALL: No significant hernia is appreciated. LYMPHOVASCULAR STRUCTURES: No bulky adenopathy. Minimal vascular calcification in aorta.. PELVIC VISCERA: Unremarkable. OSSEUS STRUCTURES: Unremarkable. CT/CT abdomen pelvis wo con IMPRESSION: Findings again consistent with underlying enterocolitis. The current examination is noncontrast which does cause some limitations. The degree of colonic wall thickening appears slightly improved from the prior study with persistent small bowel wall thickening consistent with a persistent but likely slightly improving degree of enterocolitis. Again the subtle findings are difficult to evaluate due to the lack of intravenous contrast as well as decompressed loops. No obstructive changes seen..
[2021-04-06 14:41] LABS: MANUAL DIFF FLAG NO
[2021-04-06 14:49] LABS: Appearance Urine CLEAR; Color Urine YELLOW; Glucose Urine UA NEG (NEG); Leukocyte Esterase Urine NEG (NEG); Nitrite Urine NEG (NEG); UACC Culture Trigger NO; Urine Blood 1+ (NEG); Urine Ketones NEG (NEG); Urine Protein NEG (NEG-TRACE)
[2021-04-06 14:50] LABS: Basophils Percent Auto 0.2 % (0-2); Eosinophils Absolute Auto 0.1 X10*3/uL (0.0-0.4); Hematocrit 43.1 % (37.0-47.0); Imm Gran Abs Auto 0.02 X10*3/uL (0.00-0.03); Imm Gran Pct Auto 0.2 % (0.0-0.4); Lymphocytes Absolute Auto 0.9 X10*3/uL (1.2-4.9); Lymphocytes Percent Auto 9.3 % (20-40); Mean Corpuscular HGB Conc 33.4 g/dl (31.0-35.0); Mean Corpuscular Volume 95.8 fL (80.0-98.0); Monocytes Absolute Auto 0.5 X10*3/uL (0.1-1.2); Neutrophils Absolute Auto 7.8 x10*3/uL (2.0-8.3); Neutrophils Percent Auto 84.3 % (45-73); Platelet Count 282 X10*3/uL (160-400); Red Cell Distribution Width 14.1 % (11.0-16.0); White Blood Count 9.3 X10*3/uL (4.8-10.8)
[2021-04-06 14:55] LABS: Hemoglobin 14.4 g/dl (12.0-16.0)
[2021-04-06 14:58] LABS: Mucus Urine TRACE /LPF; Squamous Epithelial Cell Urine 2+ /LPF; WBC Urine 0-2 /HPF (0-4)
[2021-04-06 15:15] LABS: Alanine Aminotransferase 11 U/L (0-31); Alkaline Phosphatase 54 U/L (39-117); Anion Gap 13 (12-20); Aspartate Amino Transferase 11 U/L (5-31); Blood Urea Nitrogen 10 mg/dL (9-16); Calcium 9.2 mg/dL (8.4-10.2); Carbon Dioxide 28 mmol/L (22-29); Chloride 102 mmol/L (96-108); Creatinine Clr Calc Pharmacy 69.3; Estimated Glomerular Filt Rate > 60; Glucose Random 116 mg/dL (60-115); Sodium 139 mmol/L (135-145); Total Protein 6.6 g/dL (6.5-8.0)
--- NOTE | 2021-04-06 16:32 | ED.ABDPAIN ---
HPI - Abdominal Pain General Chief Complaint: Abdominal Pain Stated Complaint: abd pain/colitis Time Seen by Provider: 04/06/21 16:29 Source: patient Mode of arrival: ambulatory Limitations: no limitations History of Present Illness HPI narrative: 45-year-old female walked into the emergency department for evaluation of abdominal pain. Pain started 2 days ago, mostly in the left side of the abdomen, pain described as constant severe 10/10 dull aching, no relieving factor, no aggravating factor, patient's symptoms was triggered after eating a bowl of cereal with milk pain is associated with increases nonbloody watery bowel movements, no fever or chills. Patient had a history of colitis and had similar pain 2 weeks ago was started on levofloxacin seen and a steroid. Patient see Dr. Mejia from GI for her colitis. Patient with history of cervical cancer with history of chemo/radiation therapy causing proctitis and cystitis after radiation and possibly colitis. Related Data Home Medications Medication Instructions Recorded Confirmed clonazepam 0.5 mg tablet 0.5 mg PO TID 09/09/20 03/16/21 norgestimate 0.25 mg-ethinyl 1 tab PO DAILY 09/09/20 03/16/21 estradiol 35 mcg tablet (Estarylla) oxycodone 5 mg tablet 1 tab PO TID PRN 09/09/20 03/16/21 zolpidem 12.5 mg tablet,extended 1 tab PO BEDTIME PRN 09/09/20 03/16/21 release,multiphase mesalamine 400 mg capsule (with 2 cap PO TID 03/16/21 03/16/21 delayed release tablets inside) Previous Rx's Medication Instructions Recorded dicyclomine 10 mg capsule 10 mg PO QIDACHS PRN 120 Days cap 03/20/21 prednisone 10 mg tablet See Taper PO DAILY #150 tab 03/20/21 Allergies Allergy/AdvReac Type Severity Reaction Status Date / Time guaifenesin [GUAIFENESIN] Allergy Intermediate HIVES Verified 04/06/21 12:53 metaproterenol [From Alupent] Allergy Mild PALPITATIONS, Verified 04/06/21 12:53 RASH Review of Systems Review of Systems All other systems are reviewed and are negative Constitutional: Reports as per HPI and Reports no additional constitutional complaints Eyes: Reports as per HPI and Reports no additional eye complaints Reports system reviewed and no additional complaints, except as documented Cardiovascular: Reports as per HPI and Reports no additional cardiovascular complaints Respiratory: Reports as per HPI and Reports no additional respiratory complaints Gastrointestinal: Reports as per HPI and Reports no additional gastrointestinal complaints Genitourinary: Reports no additional female genitourinary complaints Musculoskeletal: Reports no additional musculoskeletal complaints Skin/Breast: Reports system reviewed and no additional complaints, except as docu Psychiatric: Reports no additional psychiatric complaints Endocrine: Reports no additional endocrine complaints Hematologic/Lymphatic: Reports no additional hematologic/lymphatic complaints Allergic/Immunologic: Reports no additional allergic/immunologic complaints Reports system reviewed and no additional complaints, except as documented and Reports Abnormal speech present [facility] Past Medical History Medical History Anxiety Cervical cancer Cholecystectomy planned Colitis Colitis Radiation cystitis Surgical History Hx of elbow surgery Tubal ligation status Family History Family History Other No family history of coronary artery disease Social History Social History Household Members: Significant Other Housing: House Do you presently have visiting nurse or other home services: No Alcohol intake: never Patient Tobacco Use Status: Current someday Tobacco user Tobacco use type: Cigarette Cigarettes Per Day: 3 Years Smoked: 20 Second Hand Smoke Exposure: No Advance Directives: Yes Advance Directives on File: Yes Advance Directives Date on File: 09/10/20 service: No Current occupational status: employed Physical Exam ED Vital Signs: Vital Signs - 24 hr 04/06/21 12:53 04/06/21 16:20 04/06/21 18:06 Temperature 97.9 F Pulse Rate 98 113 H 73 Respiratory Rate 18 18 18 Blood Pressure 124/85 122/83 123/70 Pulse Oximetry 99 97 98 BMI result Body Mass Index 20.1 Vital signs have been reviewed as appeared to be correct. Blood pressure normal. Heart rate normal. Respiration rate normal. Temperature normal. Oxygen saturation normal. Appearance: Alert. Oriented X3. No acute distress. Head: Normal external exam. Normocephalic. Atraumatic. No Benitez signs noted. No raccoon eyes noted Eyes: PERRLA. EOMI. Conjunctiva and sclera normal. Eyelids normal. ENT: TM's Normal. Pharynx normal. Uvula midline. Moist mucous membranes. No trismus noted. No drooling noted. No muffled voice noted. Neck: Normal inspection. Neck supple. FROM. No adenopathy. Thyroid Normal. No meningeal signs. No neck mass noted. CVS: Normal heart rate and rhythm. Heart sound normal. No murmurs noted. Pulses normal throughout. Respiratory: No respiratory distress. Painless inspiration. Breath sounds normal. No wheezes/rales/rhonchi noted. Chest nontender. No accessory muscle usage noted or decreased air movement noted. Abdomen: Distended, with diffuse tenderness mostly in the left side of the abdomen, Bowel sounds normal in all 4 quadrants. No distention noted. No organomegaly noted. No visible injury noted. Back: No CVA tenderness. Full range of motion noted. Skin: Skin warm and dry. Normal skin color. Normal skin turgor. No rashes/lesions/lacerations noted. Extremities: No lower extremity edema. Extremities exhibit normal range of motion. Extremities nontender. Neuro: Oriented X 3. Cranial nerve exam: II-XII are grossly intact No motor deficit. No sensory deficit. Reflexes normal. Course Course Course Narrative: Assessment and plan. 45-year-old female came in with abdominal pain due to acute on chronic colitis flare up, CT of the abdomen pelvis showing no surgical complication. Will admit the patient, pain control with Dilaudid, give a dose of Solu-Medrol, treated with antibiotic. Patient do not meet criteria for sepsis. MDM - Abdominal Pain Medical Records Attestation: I reviewed the patient's medical records. Lab Data Attestation: I reviewed the patient's lab results. Result diagrams: 04/06/21 14:31 04/06/21 14:31 Labs: Lab Results 04/06/21 04/06/21 04/06/21 Range/Units 14:31 14:31 14:41 WBC 9.3 (4.8-10.8) X10*3/uL RBC 4.50 D (4.20-5.50) X10*6/uL Hgb 14.4 D (12.0-16.0) g/dl Hct 43.1 D (37.0-47.0) % MCV 95.8 (80.0-98.0) fL MCH 32.0 (27.0-33.0) pg MCHC 33.4 (31.0-35.0) g/dl RDW 14.1 (11.0-16.0) % Plt Count 282 D (160-400) X10*3/uL MPV 9.0 L (9.4-12.3) fL Immature Gran % (Auto) 0.2 (0.0-0.4) % Neut % (Auto) 84.3 H (45-73) % Lymph % (Auto) 9.3 L (20-40) % [place] % (Auto) 5.0 (2-11) % Eos % (Auto) 1.0 (0-4) % Baso % (Auto) 0.2 (0-2) % Lymph # (Auto) 0.9 L (1.2-4.9) X10*3/uL [place] # (Auto) 0.5 (0.1-1.2) X10*3/uL Eos # (Auto) 0.1 (0.0-0.4) X10*3/uL Baso # (Auto) 0.0 (0.0-0.2) X10*3/uL Abs Immat Gran (auto) 0.02 (0.00-0.03) X10*3/uL Absolute Neuts (auto) 7.8 (2.0-8.3) x10*3/uL Absolute Nucleated RBC 0.000 (0.0-0.012) X10*3/uL Nucleated RBC % (auto) 0.0 (0.0-0.2) /100WBC Sodium 139 (135-145) mmol/L Potassium 4.0 (3.3-5.1) mmol/L Chloride 102 (96-108) mmol/L Carbon Dioxide 28 (22-29) mmol/L Anion Gap 13 (12-20) BUN 10 D (9-16) mg/dL Creatinine 0.79 (0.5-1.4) mg/dL Estim Creat Clear Calc 69.3 Estimated GFR > 60 Random Glucose 116 H (60-115) mg/dL Calcium 9.2 (8.4-10.2) mg/dL Total Bilirubin 1.0 (0.0-1.0) mg/dL AST 11 (5-31) U/L ALT 11 (0-31) U/L Alkaline Phosphatase 54 (39-117) U/L Total Protein 6.6 (6.5-8.0) g/dL Albumin 4.0 (3.5-5.0) g/dL Urine Color YELLOW Urine Appearance CLEAR Urine pH 6.0 (5.0-8.0) Ur Specific [place] 1.020 (1.005-1.025) Urine Protein NEG (NEG-TRACE) MG/DL Urine Glucose (UA) NEG (NEG) MG/DL Urine Ketones NEG (NEG) MG/DL Urine Blood 1+ H (NEG) Urine Nitrite NEG (NEG) Ur Leukocyte Esterase NEG (NEG) Urine RBC 1-4 (0) /HPF Urine WBC 0-2 (0-4) /HPF Ur Squamous Epith Cells 2+ /LPF Urine Bacteria NONE /LPF Urine Mucus TRACE /LPF Imaging Data CT abdomen pelvis: Attestation: I personally reviewed and interpreted this imaging study as follows: Radiologist's impression: Findings again consistent with underlying enterocolitis. The current examination is noncontrast which does cause some limitations. The degree of colonic wall thickening appears slightly improved from the prior study with persistent small bowel wall thickening consistent with a persistent but likely slightly improving degree of enterocolitis. Again the subtle findings are difficult to evaluate due to the lack of intravenous contrast as well as decompressed loops. No obstructive changes seen.. ? Discharge Plan Discharge Clinical Impression: Pancolitis, Abdominal pain Patient Disposition: Admitted As Inpatient Prescriptions: No Action norgestimate-ethinyl estradiol [Estarylla] 0.25-35 mg-mcg tablet 1 tab PO DAILY 0RF clonazepam 0.5 mg tablet 0.5 mg PO TID 0RF oxycodone 5 mg tablet 1 tab PO TID PRN (Reason: Pain (Scale Score 7-10)) 0RF zolpidem 12.5 mg tablet,ext release multiphase 1 tab PO BEDTIME PRN (Reason: Sleep) 0RF mesalamine 400 mg capsule (with del rel tablets) 2 cap PO TID 0RF dicyclomine 10 mg Capsule 10 mg PO QIDACHS PRN (Reason: Abdominal Discomfort) 120 Days 0RF prednisone 10 mg tablet See Taper mg PO DAILY Qty: 150 0RF Taper: Prednisone 60 mg daily for 7 Days and 0 Hour 50 mg daily for 7 Days and 0 Hour 40 mg daily for 7 Days and 0 Hour 30 mg daily for 7 Days and 0 Hour 20 mg daily for 7 Days 10 mg daily for 7 Days
[2021-04-06] MEDS: 0.9 % Sodium Chloride 1,000 ML 999 ML IV ×2 (16:39→19:37)
[2021-04-06] MEDS: HYDROmorphone HCl 1 MG/ML SYRINGE IVPUSH (16:52)
[2021-04-06] MEDS: levoFLOXacin/D5W 750 MG/150 ML PIGGYBACK 100 MG IV (19:35)
[2021-04-06] MEDS: HYDROmorphone HCl 2 MG/ML VIAL IVPUSH (19:35)
[2021-04-06] MEDS: methylPREDNISolone Sod Succ 125 MG/2 ML VIAL IVPUSH (19:35)
--- NOTE | 2021-04-06 19:37 | PM.IMHP ---
History of Present Illness Date of Service: 04/06/21 Chief Complaint: Abd pain 45-year-old female with a past medical history of cervical cancer status post chemotherapy/radiotherapy; history radiation proctitis, radiation cystitis; recent diagnosis of colitis in January of 2021 and has been on mesalamine; recently finished course of antibiotics colitis and on prednisone taper; presented to the hospital today with a chief complaint of nausea vomiting diarrhea and abdominal pain. Patient reports that over the past couple days she has been having multiple episodes of nausea and vomiting also had loose stools, foul-smelling, occasional streaks of blood; reports she has occasional streaks of blood in the stool even during the last time when she was in the hospital. Follows with Gastroenterology as outpatient. Reports she is not able to keep anything down; tried to use Pedialyte to keep up with Alps lytes; As the symptoms were not improving decided to come to the ER for further evaluation. Denies any chest pain or palpitations. Denies any recent travel or sick contacts. Review of all other systems is negative except mentioned above ER course: Per ER team patient noted a mild diffuse abdominal discomfort; CT abdomen showed enterocolitis; patient was given steroids, Levaquin; admitted to the hospital for further management PMFSH Medical History Anxiety Cervical cancer Cholecystectomy planned Colitis Colitis Radiation cystitis Family History Other No family history of coronary artery disease Pertinent family history: mother: CVA, CAD, endometrial cancer Surgical History Hx of elbow surgery Tubal ligation status Social History Household Members: Significant Other Housing: House Do you presently have visiting nurse or other home services: No Alcohol intake: never Patient Tobacco Use Status: Current someday Tobacco user Tobacco use type: Cigarette Cigarettes Per Day: 3 Years Smoked: 20 Second Hand Smoke Exposure: No Advance Directives: Yes Advance Directives on File: Yes Advance Directives Date on File: 09/10/20 service: No Current occupational status: employed Meds Allergies Allergy/AdvReac Type Severity Reaction Status Date / Time guaifenesin [GUAIFENESIN] Allergy Intermediate HIVES Verified 04/06/21 12:53 metaproterenol [From Alupent] Allergy Mild PALPITATIONS, Verified 04/06/21 12:53 RASH Active Medications: Current Medications Acetaminophen (Acetaminophen 325 Mg Tablet) 650 mg PO Q6H PRN PRN Reason: Pain, Mild (Pain Scale 1-3) Heparin Sodium (Porcine) (Heparin Sodium,Porcine 5,000 Unit/Ml Vial) 5,000 unit SUBCUT Q8H VALERI Hydromorphone HCl (Hydromorphone Hcl 1 Mg/Ml Syringe) 0.5 mg IVPUSH Q4H PRN; Protocol PRN Reason: Pain, Severe (Pain Scale 7-10) Levofloxacin (Levaquin) 750 mg in 150 mls @ 100 mls/hr IV ONCE ONE Stop: 04/06/21 19:51 Last Admin: 04/06/21 19:35 Dose: 100 mls/hr Documented by: Dextrose/Sodium Chloride (D51/2ns) 1,000 mls @ 50 mls/hr IVCONT .Q20H VALERI Levofloxacin (Levaquin) 750 mg in 150 mls @ 100 mls/hr IV Q24H VALERI Melatonin (Melatonin 3 Mg Tablet) 6 mg PO BEDTIME PRN PRN Reason: Insomnia Methylprednisolone Sodium Succinate (Methylprednisolone Sod Succ 40 Mg/Ml Vial) 20 mg IVPUSH Q8H VALERI Senna (Sennosides 8.6 Mg Tablet) 17.2 mg PO BEDTIME PRN PRN Reason: Constipation Sodium Chloride (0.9 % Sodium Chloride Flush 3 Ml Syringe) 3 ml IVFLUSH QSHIFT [facility] Home Medications Medication Instructions Recorded Confirmed Last Taken Type clonazepam 0.5 mg tablet 0.5 mg PO TID 09/09/20 04/06/21 01/04/21 History norgestimate 0.25 mg-ethinyl 1 tab PO DAILY 09/09/20 04/06/21 01/04/21 History estradiol 35 mcg tablet (Estarylla) oxycodone 5 mg tablet 1 tab PO TID PRN 09/09/20 04/06/21 01/04/21 History zolpidem 12.5 mg tablet,extended 1 tab PO BEDTIME PRN 09/09/20 04/06/21 01/03/21 History release,multiphase dicyclomine 20 mg tablet 20 mg PO QID PRN 04/06/21 04/06/21 Unknown History mesalamine 400 mg capsule (with 2 cap PO TID 04/06/21 04/06/21 Unknown History delayed release tablets inside) (Delzicol) Physical Exam Vital Signs and Narrative: Vital Signs: Last Vital Signs Temp 97.9 F 04/06/21 12:53 Pulse 73 04/06/21 18:06 Resp 16 04/06/21 19:35 BP 123/70 04/06/21 18:06 Pulse Ox 98 04/06/21 18:06 BMI result Body Mass Index 20.1 Gen: Appears be in no acute distress HEENT: NCAT, Moist mucosa. Pulmonary: Vesicular breath sounds, fair air entry CVS: Normal S1-S2 Abdomen: BS+, Soft, Mildly tender diffusely; no guarding Extremities: Warm well perfused Neuro: Alert and awake. Results Labs CBC and Chem 7: 04/06/21 14:31 04/06/21 14:31 Labs: Laboratory Results - last 24 hr 04/06/21 04/06/21 04/06/21 14:31 14:31 14:41 MCV 95.8 MCH 32.0 MCHC 33.4 RDW 14.1 Plt Count 282 D MPV 9.0 L Immature Gran % (Auto) 0.2 Neut % (Auto) 84.3 H Lymph % (Auto) 9.3 L [place] % (Auto) 5.0 Eos % (Auto) 1.0 Baso % (Auto) 0.2 Lymph # (Auto) 0.9 L [place] # (Auto) 0.5 Eos # (Auto) 0.1 Baso # (Auto) 0.0 Abs Immat Gran (auto) 0.02 Absolute Neuts (auto) 7.8 Absolute Nucleated RBC 0.000 Nucleated RBC % (auto) 0.0 Anion Gap 13 Estim Creat Clear Calc 69.3 Estimated GFR > 60 Random Glucose 116 H Calcium 9.2 Total Bilirubin 1.0 AST 11 ALT 11 Alkaline Phosphatase 54 Total Protein 6.6 Albumin 4.0 Urine Color YELLOW Urine Appearance CLEAR Urine pH 6.0 Ur Specific [place] 1.020 Urine Protein NEG Urine Glucose (UA) NEG Urine Ketones NEG Urine Blood 1+ H Urine Nitrite NEG Ur Leukocyte Esterase NEG Urine RBC 1-4 Urine WBC 0-2 Ur Squamous Epith Cells 2+ Urine Bacteria NONE Urine Mucus TRACE Imaging Radiologist's Impressions: Impressions Abdomen/Pelvis CT 04/06/21 17:23 IMPRESSION: Findings again consistent with underlying enterocolitis. The current examination is noncontrast which does cause some limitations. The degree of colonic wall thickening appears slightly improved from the prior study with persistent small bowel wall thickening consistent with a persistent but likely slightly improving degree of enterocolitis. Again the subtle findings are difficult to evaluate due to the lack of intravenous contrast as well as decompressed loops. No obstructive changes seen.. Assessment and Plan (1) Abdominal pain: Status: Acute (2) Pancolitis: Status: Acute Plan 45-year-old female with a past medical history of cervical cancer status post chemotherapy/radiotherapy; history radiation proctitis, radiation cystitis; recent diagnosis of colitis in January of 2021 and has been on mesalamine; recently finished course of antibiotics colitis and on prednisone taper; presented to the hospital today with a chief complaint of nausea vomiting diarrhea and abdominal pain. CT scan showed enterocolitis. Admitted for further management. Enterocolitis: Continue Solu-Medrol and Levaquin Will obtain stool studies including C diff Gastroenterology consult NPO for now IV fluids Pain control hold home mesalamine for now until further input from Gastroenterology history of anxiety: Continue home clonazepam DVT prophylaxis: Subcu heparin Code status: Full code Quality Stroke Does the patient have a stroke diagnosis?: No VTE Prior VTE?: No VTE Risk Level:: Medical - moderate - high VTE Device Contraindication: Treatment Not Indicated VTE Drug Contraindication: N/A - Med Ordered
[2021-04-06 19:42] LABS: Lactic Acid 0.6 mmol/L (0.5-2.0)
--- NOTE | 2021-04-06 19:48 | PHA.MEDREC ---
med rec complete, no issues Pharmacy Consult ? Medication Reconciliation Pharmacy has completed the medication reconciliation.
[2021-04-06 20:50] LABS: COVID-19 Test Negative (Negative)
[2021-04-06] MEDS: Dextrose 5 % and 0.45 % NaCl 1,000 ML 50 ML IVCONT (21:32)
[2021-04-06] MEDS: Zolpidem Tartrate 5 MG TABLET PO (22:36)
[2021-04-06] MEDS: clonazePAM 0.5 MG TABLET PO (22:36)
[2021-04-06] MEDS: HYDROmorphone HCl 1 MG/ML SYRINGE 0.5 MG IVPUSH (22:36)
[2021-04-06] MEDS: 0.9 % Sodium Chloride Flush 3 ML SYRINGE IVFLUSH (22:40)
[2021-04-07 03:14] VITALS: BP 134/67; PULSE 81; RESP 20; TEMP 36.9; O2SAT 98
[2021-04-07 04:27] VITALS: RESP 18
[2021-04-07] MEDS: HYDROmorphone HCl 1 MG/ML SYRINGE 0.5 MG IVPUSH (04:27)
[2021-04-07] MEDS: methylPREDNISolone Sod Succ 40 MG/ML VIAL 20 MG IVPUSH ×2 (04:28→12:54)
[2021-04-07 07:11] LABS: MANUAL DIFF FLAG NO
[2021-04-07 07:31] LABS: Basophils Percent Auto 0.2 % (0-2); Imm Gran Abs Auto 0.02 X10*3/uL (0.00-0.03); Imm Gran Pct Auto 0.4 % (0.0-0.4); Lymphocytes Absolute Auto 0.5 X10*3/uL (1.2-4.9); Lymphocytes Percent Auto 8.9 % (20-40); Mean Corpuscular HGB Conc 32.6 g/dl (31.0-35.0); Mean Corpuscular Hemoglobin 31.6 pg (27.0-33.0); Mean Corpuscular Volume 96.9 fL (80.0-98.0); Mean Platelet Volume 9.1 fL (9.4-12.3); Monocytes Absolute Auto 0.1 X10*3/uL (0.1-1.2); Monocytes Percent Auto 0.9 % (2-11); Neutrophils Absolute Auto 4.9 x10*3/uL (2.0-8.3); Neutrophils Percent Auto 89.6 % (45-73); Platelet Count 203 X10*3/uL (160-400); Red Blood Count 3.51 X10*6/uL (4.20-5.50); Red Cell Distribution Width 13.9 % (11.0-16.0); White Blood Count 5.4 X10*3/uL (4.8-10.8)
[2021-04-07 07:34] LABS: Hemoglobin 11.1 g/dl (12.0-16.0)
[2021-04-07 07:37] VITALS: BP 114/63; PULSE 78; RESP 18; TEMP 36.8; O2SAT 97
[2021-04-07] MEDS: clonazePAM 0.5 MG TABLET PO (07:49)
[2021-04-07 07:57] LABS: Anion Gap 11 (12-20); Blood Urea Nitrogen 7 mg/dL (9-16); Calcium 7.9 mg/dL (8.4-10.2); Carbon Dioxide 24 mmol/L (22-29); Chloride 109 mmol/L (96-108); Creatinine Clr Calc Pharmacy 88.3; Estimated Glomerular Filt Rate > 60; Glucose Random 150 mg/dL (60-115); Potassium 4.1 mmol/L (3.3-5.1); Sodium 140 mmol/L (135-145)
--- NOTE | 2021-04-07 09:05 | MHC.CM.PN ---
CM met with Patient at bedside. Patient lives in a duplex with her Fiance, 23 year old Son, 11 and 13 year old Niece and Nephew, who she is raising, 13 year old Step-Son, Mother who has had a CVA and Patient is her Caregiver. Home/no services is the goal for dc and CM has initiated and will follow for dc planning. PCP is Dr. Edmundo Burnham and Patient has received [employer] [facility] vax X2.
[2021-04-07] MEDS: Mesalamine 400 MG CAP.DRTAB. 800 MG PO (09:56)
[2021-04-07 11:20] VITALS: BP 128/65; PULSE 80; RESP 18; TEMP 37.4; O2SAT 97
--- NOTE | 2021-04-07 13:14 | MHC.CLN ---
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
--- NOTE | 2021-04-07 14:25 | PM.DS ---
DS: Providers Provider Date of Service: 04/07/21 Date of admission: 04/06/21 19:13 Primary care physician: Edmundo Burnham MD Consults: 04/06/21 19:32 Consult to Gastroenterology Routine Consulting Provider: Alhaji Maya Reason for consultation: rec Colitis DS: Diagnosis Discharge Diagnosis (1) Abdominal pain: Status: Acute (2) Pancolitis: Status: Acute DS: Summary Hospital Course Hospital Course: patient was admitted for acute recurrent enterocolitis, presumed to be IBD flare. she was given levquin, methylprednisilone and pain meds. her symptoms improved faster than expected. she was able to toelrated solid diet. she was seen by GI who recommended prednisone taper and outpatient follow up for capsule endoscopy. final diagnosis: enterocolitis IBD flare secondary diagnosis: cervical canncer in remision anxiety Time Spent with Patient Time attestation: Total time spent providing and/or coordinating discharge services: Discharge coordination time: Greater than 30 minutes Quality: Stroke Does the patient have a stroke diagnosis?: No Physical Exam Vital Signs: Vital Signs: Last Vital Signs Temp 99.3 F 04/07/21 11:20 Pulse 80 04/07/21 11:20 Resp 18 04/07/21 11:20 BP 128/65 04/07/21 11:20 Pulse Ox 97 04/07/21 11:20 BMI result Body Mass Index 20.1 General: AO X 3, no acute distress Resp: CTA bilateral, no accessory muscles used CVS: S1,S2,RRR GI: soft, non tender, non distended Neuro: motor grossly intact, alert Psych: appropriate affect, appropriate insight DS: Data Data Completed and Pending Completed studies during hospitalization [Text1]: Procedures Excision of Ileum, Via Natural or Artificial Opening Endoscopic, Diagnostic (09/09/20) Excision of Large Intestine, Via Natural or Artificial Opening Endoscopic, Diagnostic (03/16/21) Labs on day of discharge: Laboratory Results - last 24 hr 04/06/21 04/06/21 04/06/21 14:31 14:31 14:41 WBC 9.3 RBC 4.50 D Hgb 14.4 D Hct 43.1 D MCV 95.8 MCH 32.0 MCHC 33.4 RDW 14.1 Plt Count 282 D MPV 9.0 L Immature Gran % (Auto) 0.2 Neut % (Auto) 84.3 H Lymph % (Auto) 9.3 L [place] % (Auto) 5.0 Eos % (Auto) 1.0 Baso % (Auto) 0.2 Lymph # (Auto) 0.9 L [place] # (Auto) 0.5 Eos # (Auto) 0.1 Baso # (Auto) 0.0 Abs Immat Gran (auto) 0.02 Absolute Neuts (auto) 7.8 Absolute Nucleated RBC 0.000 Nucleated RBC % (auto) 0.0 Sodium 139 Potassium 4.0 Chloride 102 Carbon Dioxide 28 Anion Gap 13 BUN 10 D Creatinine 0.79 Estim Creat Clear Calc 69.3 Estimated GFR > 60 Random Glucose 116 H Lactic Acid Calcium 9.2 Total Bilirubin 1.0 AST 11 ALT 11 Alkaline Phosphatase 54 Total Protein 6.6 Albumin 4.0 Urine Color YELLOW Urine Appearance CLEAR Urine pH 6.0 Ur Specific [place] 1.020 Urine Protein NEG Urine Glucose (UA) NEG Urine Ketones NEG Urine Blood 1+ H Urine Nitrite NEG Ur Leukocyte Esterase NEG Urine RBC 1-4 Urine WBC 0-2 Ur Squamous Epith Cells 2+ Urine Bacteria NONE Urine Mucus TRACE COVID-19 ([facility]) COVID-19 Clin Com 04/06/21 04/06/21 04/07/21 19:27 20:25 06:49 WBC 5.4 RBC 3.51 L D Hgb 11.1 L D Hct 34.0 L D MCV 96.9 MCH 31.6 MCHC 32.6 RDW 13.9 Plt Count 203 D MPV 9.1 L Immature Gran % (Auto) 0.4 Neut % (Auto) 89.6 H Lymph % (Auto) 8.9 L [place] % (Auto) 0.9 L Eos % (Auto) 0.0 Baso % (Auto) 0.2 Lymph # (Auto) 0.5 L [place] # (Auto) 0.1 Eos # (Auto) 0.0 Baso # (Auto) 0.0 Abs Immat Gran (auto) 0.02 Absolute Neuts (auto) 4.9 Absolute Nucleated RBC 0.000 Nucleated RBC % (auto) 0.0 Sodium Potassium Chloride Carbon Dioxide Anion Gap BUN Creatinine Estim Creat Clear Calc Estimated GFR Random Glucose Lactic Acid 0.6 Calcium Total Bilirubin AST ALT Alkaline Phosphatase Total Protein Albumin Urine Color Urine Appearance Urine pH Ur Specific [place] Urine Protein Urine Glucose (UA) Urine Ketones Urine Blood Urine Nitrite Ur Leukocyte Esterase Urine RBC Urine WBC Ur Squamous Epith Cells Urine Bacteria Urine Mucus COVID-19 ([facility]ANIS) Negative COVID-19 Clin Com See Note 04/07/21 06:49 WBC RBC Hgb Hct MCV MCH MCHC RDW Plt Count MPV Immature Gran % (Auto) Neut % (Auto) Lymph % (Auto) [place] % (Auto) Eos % (Auto) Baso % (Auto) Lymph # (Auto) [place] # (Auto) Eos # (Auto) Baso # (Auto) Abs Immat Gran (auto) Absolute Neuts (auto) Absolute Nucleated RBC Nucleated RBC % (auto) Sodium 140 Potassium 4.1 Chloride 109 H Carbon Dioxide 24 Anion Gap 11 L BUN 7 L Creatinine 0.62 Estim Creat Clear Calc 88.3 Estimated GFR > 60 Random Glucose 150 H Lactic Acid Calcium 7.9 L D Total Bilirubin AST ALT Alkaline Phosphatase Total Protein Albumin Urine Color Urine Appearance Urine pH Ur Specific [place] Urine Protein Urine Glucose (UA) Urine Ketones Urine Blood Urine Nitrite Ur Leukocyte Esterase Urine RBC Urine WBC Ur Squamous Epith Cells Urine Bacteria Urine Mucus COVID-19 ([facility]) COVID-19 Clin Com Discharge Plan Discharge Patient Disposition: Home, Self-Care Discharge Diagnosis: IBD flare Referrals: Edmundo Burnham MD [Primary Care Provider] - 1 Week Alhaji Maya [Physician] - 1 Week Discharge Medications: New prednisone 10 mg tablet 40 mg PO DAILY Qty: 70 0RF Rx Instructions: taper by 10mg daily every 7 days Continued norgestimate-ethinyl estradiol [Estarylla] 0.25-35 mg-mcg tablet 1 tab PO DAILY 0RF clonazepam 0.5 mg tablet 0.5 mg PO TID 0RF oxycodone 5 mg tablet 1 tab PO TID PRN (Reason: Pain (Scale Score 7-10)) 0RF zolpidem 12.5 mg tablet,ext release multiphase 1 tab PO BEDTIME PRN (Reason: Sleep) 0RF mesalamine [Delzicol] 400 mg capsule (with del rel tablets) 2 cap PO TID 0RF dicyclomine 20 mg Tablet 20 mg PO QID PRN (Reason: Abdominal Pain) 0RF Discontinued prednisone 10 mg tablet See Taper mg PO DAILY Qty: 150 0RF Taper: Prednisone 60 mg daily for 7 Days and 0 Hour 50 mg daily for 7 Days and 0 Hour 40 mg daily for 7 Days and 0 Hour 30 mg daily for 7 Days and 0 Hour 20 mg daily for 7 Days 10 mg daily for 7 Days Discharge Orders: Discharge Order (Routine); Ordered 04/07/21 Ordered By: Jesus Arriaga Diet: advance to usual diet Activity on Discharge: As tolerated Stand Alone Forms: Patient Portal Discharge page Care Plan Goals: avoid exacerbations Health Concerns: IBD Plan of Treatment: predniosne taper as prescribed, follow up with GI, plan for capsule endoscopy Assessment: see above
--- NOTE | 2021-04-07 15:05 | PC.NURSE ---
IV AND TELEPACK REMOVED. OFF UNIT FOR DISCHARGE AT 1505.
--- NOTE | 2021-04-08 02:00 | CONS_ITS ---
DATE OF SERVICE: 04/07/2021 REFERRING PHYSICIAN: Gulshan Villalpando MD REASON FOR CONSULTATION: Abdominal pain and history of colitis. HISTORY OF PRESENT ILLNESS: The patient is a pleasant 45-year-old woman, well known to me from recent evaluation. She was admitted to the hospital after presenting to the emergency room yesterday with complaints of abdominal pain. She had been recently admitted for what was thought to be an exacerbation of underlying colitis. At that time, she underwent a colonoscopy, which was done with an unprepped colon, but was limited and showed nonspecific colitis involving the descending and sigmoid colon with erythema, edema, loss of vascular pattern. Biopsies obtained at that time were nonspecific and she was treated with antibiotics and steroids. After discharge, she was on 60 mg of prednisone, which she tapered rapidly down to 10 mg due to erroneous instructions and stopped fairly quickly. She presented to the emergency room after developing abdominal pain the day before admission when she ate a bowl of cereal with milk, which she does not usually have. The pain was severe, in the emergency department, she was evaluated with laboratory studies including lab work, which showed no elevation of her white blood cell count and chemistry showing an elevated glucose, but normal liver profile. CT scanning was obtained, which is reviewed. This is interpreted as showing enterocolitis with involvement of the colon and distal small bowel. The patient denies any recent fevers or chills. No ill contacts or suspect food ingestions except as above. There has been no travel. She was given antibiotics and steroids last night and feels markedly improved today and wishes to be discharged. PAST MEDICAL HISTORY: 1. Recent colitis as above. 2. Cervical cancer, status post radiation therapy. 3. Anxiety. CURRENT MEDICATIONS: Her current medication list is reviewed in the chart. ALLERGIES: GUAIFENESIN AND METAPROTERENOL. FAMILY HISTORY: This is reviewed with the patient and is noncontributory. SOCIAL HISTORY: There is no current substance abuse. REVIEW OF SYSTEMS: SKIN: No pruritus. HEENT: Negative. CARDIOPULMONARY: She denies shortness of breath or chest pain. GASTROINTESTINAL: As above. GENITOURINARY: Negative. NEUROPSYCHIATRIC: Negative. PHYSICAL EXAMINATION: GENERAL: Reveals a pleasant female, lying comfortably in bed. She has tolerated a diet. VITAL SIGNS: Reviewed in electronic medical record. She has been afebrile and vital signs are otherwise stable. SKIN: Anicteric. HEENT: No scleral icterus. NECK: Without lymphadenopathy or thyromegaly. LUNGS: Clear. HEART: Regular rate and rhythm. S1, S2. No murmur. ABDOMEN: Soft without focal masses or tenderness. Bowel sounds are present. No organomegaly is noted. EXTREMITIES: Without edema. LABORATORY DATA: Laboratory data and CT scanning are reviewed as above. IMPRESSION: Abdominal pain with abnormal CT scan as above. Some of her symptoms could be related to her rapid taper prednisone and I discussed this with her. I recommended she be discharged on a 40 mg of prednisone tapering by 10 mg weekly. She should continue her mesalamine and dicyclomine as there may be a possible functional component to some of her abdominal pain. We discussed this today and I have recommended a capsule endoscopy for further evaluation of the small bowel abnormalities due to the relatively unimpressive biopsy results on her colonoscopy from last admission. Thanks for asking me to see her. I will follow her in the hospital with you. MD BOB Stubbs/SENIA / [id number]
== END 2021-04-07 15:05 | disposition home or self-care (01) | DRG 245 ==
LOC: HO.ED 18:28 → HO.EDOVER 19:38 → HO.IMC 19:54
PROVIDERS: Admitting Provider Hospitalist; Emergency Provider Emergency Medicine; PCP Internal Medicine; Visit Provider Internal Medicine
DX: K51.00 Ulcerative (chronic) pancolitis without complications (principal); F17.210 Nicotine dependence, cigarettes, uncomplicated; Z20.822 Contact with and (suspected) exposure to COVID-19; F41.9 Anxiety disorder, unspecified; Z71.6 Tobacco abuse counseling; Z85.41 Personal history of malignant neoplasm of cervix uteri; Z92.3 Personal history of irradiation; Z92.21 Personal history of antineoplastic chemotherapy; Z79.891 Long term (current) use of opiate analgesic; Z79.899 Other long term (current) drug therapy
CPT/HCPCS: 36415; 74176; 80048; 80053; 81001; 83605; 85025; 87040; 87635; 96361; 96365; 96375; 96376; 99219; 99285; J1170; J1956; J2920; J2930

== ENCOUNTER 2021-04-19 12:42 | Outpatient (REF) | payer MEDICAID, SELFPAY ==
--- NOTE | ~2021-04-19 | XR_ITS ---
EXAMINATION: XR ABDOMEN COMPLETE CLINICAL INDICATION: Flat upright, abdominal pain COMPARISON: None TECHNIQUE: 2 views of the abdomen. FINDINGS: There is scattered stool and gas seen in the colon without any distention. No free air or air-fluid levels visualized. There is no organomegaly. There is evidence of previous cholecystectomy. No visible radiopaque stones seen. No gross bony abnormality. XR/XR abdomen min 2V IMPRESSION: There are Mild constipation
[2021-04-19 13:01] LABS: MANUAL DIFF FLAG NO
[2021-04-19 13:25] LABS: Basophils Percent Auto 0.1 % (0-2); Eosinophils Percent Auto 0.2 % (0-4); Hematocrit 39.9 % (37.0-47.0); Hemoglobin 12.8 g/dl (12.0-16.0); Imm Gran Abs Auto 0.05 X10*3/uL (0.00-0.03); Imm Gran Pct Auto 0.4 % (0.0-0.4); Lymphocytes Absolute Auto 1.1 X10*3/uL (1.2-4.9); Lymphocytes Percent Auto 9.3 % (20-40); Mean Corpuscular HGB Conc 32.1 g/dl (31.0-35.0); Mean Corpuscular Hemoglobin 31.4 pg (27.0-33.0); Mean Corpuscular Volume 97.8 fL (80.0-98.0); Mean Platelet Volume 8.9 fL (9.4-12.3); Monocytes Absolute Auto 0.8 X10*3/uL (0.1-1.2); Monocytes Percent Auto 6.4 % (2-11); Neutrophils Absolute Auto 10.2 x10*3/uL (2.0-8.3); Neutrophils Percent Auto 83.6 % (45-73); Platelet Count 293 X10*3/uL (160-400); Red Blood Count 4.08 X10*6/uL (4.20-5.50); Red Cell Distribution Width 13.9 % (11.0-16.0); White Blood Count 12.2 X10*3/uL (4.8-10.8)
[2021-04-19 14:05] LABS: Alanine Aminotransferase 15 U/L (0-31); Albumin Level 3.9 g/dL (3.5-5.0); Alkaline Phosphatase 58 U/L (39-117); Aspartate Amino Transferase 11 U/L (5-31); Bilirubin Direct 0.3 mg/dL (0.0-0.5); Bilirubin Total 0.7 mg/dL (0.0-1.0); C Reactive Protein 12.56 mg/dL (< or = 0.50); Lipase 5 U/L (8-78); Total Protein 6.4 g/dL (6.5-8.0)
[2021-04-19 14:22] LABS: Erythrocyte Sedimentation Rate 32 MM/HR (0-20)
== END 2021-04-19 12:43 | disposition home or self-care (01) ==
LOC: HO.LAB 12:42
PROVIDERS: PCP Internal Medicine; Visit Provider Internal Medicine Gastroenterology
DX: R10.9 Unspecified abdominal pain (principal); K52.9 Noninfective gastroenteritis and colitis, unspecified
CPT/HCPCS: 36415; 74019; 80076; 83690; 85025; 85652; 86140

== ENCOUNTER 2021-04-22 14:38 | Outpatient (REF) | payer MEDICAID, SELFPAY ==
[2021-04-22 16:21] LABS: CDiff Gene PCR POSITIVE (Negative)
[2021-04-22 17:27] LABS: CDiff Toxin Positive (Negative)
[2021-04-22 17:28] LABS: CDIFF Internal ctrl Dots and bkg OK (V)
== END 2021-04-22 14:39 | disposition home or self-care (01) ==
LOC: HO.LNP 14:38
PROVIDERS: Visit Provider Internal Medicine Gastroenterology
DX: K52.9 Noninfective gastroenteritis and colitis, unspecified (principal)
CPT/HCPCS: 87045; 87046; 87077; 87177; 87209; 87324; 87329; 87493

== ENCOUNTER 2021-04-23 08:26 | Inpatient (IN) | payer MEDICAID, SELFPAY ==
[2021-04-23] VITALS (7 sets, daily range): BP systolic 115–146; BP diastolic 64–86; PULSE 67–80; RESP 16–18; TEMP 36.6–37.4; O2SAT 94–99; BMI 21.0
--- NOTE | ~2021-04-23 | CT_ITS ---
EXAMINATION: CT ABDOMEN AND PELVIS WITH CONTRAST CLINICAL INFORMATION: Abdominal pain, distention, vomiting. COMPARISON: Multiple priors, most recent abdominal radiographs dated 04/19/[address] abdomen/pelvis dated 04/06/2021. TECHNIQUE: Multidetector volumetric images were obtained from the superior aspect of the liver through the pubic symphysis following administration 85 mL of Omnipaque 350 intravenous contrast. Sagittal and coronal reformatted images were obtained on the technologist's workstation. Oral Contrast: Yes. This CT examination was performed using dose optimization techniques as appropriate, variously including the following: *Automated exposure control. *Adjustment of mA and/or kV according to patient size (this includes techniques or standardized protocols for targeted exams where dose is matched to indication/reason for exam; i.e. extremities or head). *Use of iterative reconstruction technique. DLP: 411 mGy-cm FINDINGS: LUNG BASES: The visualized lung bases are unremarkable. LIVER, GALLBLADDER, AND BILIARY TREE: The liver is normal in size, shape, and attenuation. No focal hepatic lesion or biliary ductal dilatation is present. Status post cholecystectomy. PANCREAS: Unremarkable. SPLEEN: Unremarkable. ADRENAL GLANDS: Unremarkable. KIDNEYS AND URETERS: The kidneys are normal in size, shape, and attenuation. No hydronephrosis, hydroureter, or calculi seen. No perinephric stranding. BLADDER: Unremarkable. GASTROINTESTINAL TRACT: There are dilated small bowel loops extending to the right lower quadrant where there is a likely transition point (see axial image [id number]). There is fluid within the cecum with the distal small bowel and distal colon largely nondistended. Findings are consistent with a high-grade partial small bowel obstruction. Mild distal small bowel wall thickening and fecalization. Findings are increased when compared to the prior CT. No extraluminal air to suggest perforation. No evidence of pneumatosis. PERITONEAL CAVITY: Mild simple ascites, similar when compared to the prior examination. No intra-abdominal free air. No organized fluid collection/abscess formation. ABDOMINAL WALL: No significant hernia is appreciated. LYMPH NODES: No significant lymphadenopathy. VASCULAR: Unremarkable. PELVIC VISCERA: The uterus and adnexa are unremarkable. OSSEOUS STRUCTURES: Unremarkable. CT/CT abdomen pelvis w con IMPRESSION: 1. Dilated small bowel loops extending to the right lower quadrant where there is a likely transition point. The distal small bowel and distal colon are nondistended with fluid in the cecum. Findings likely represent a high-grade partial small bowel obstruction. Mild distal bowel wall thickening and fecalization. No pneumatosis or evidence of perforation. 2. Mild, simple ascites which appears similar when compared to the prior CT. No intra-abdominal free air or organized fluid collection/abscess formation. Fleischner guidelines were followed. This critical result was discussed with Dr. Villalpando at 7:40 PM on 04/25/2021 and it was ascertained that the content and urgency of the report was understood at the time of direct communication.
--- NOTE | ~2021-04-23 | XR_ITS ---
EXAMINATION: XR ABDOMEN COMPLETE CLINICAL INDICATION: Follow-up small bowel obstruction COMPARISON: Previous CT most recent 04/25/2021 TECHNIQUE: 2 views of the abdomen. FINDINGS: There are still dilated loops of small bowel with air-fluid levels. There is a paucity of bowel gas in the colon. Findings are similar to previous CAT scan. There is no evidence of free air. There are surgical clips in the right upper quadrant suggestive of previous cholecystectomy. Bony structures are unremarkable. XR/XR abdomen min 2V IMPRESSION: No appreciable change in small bowel dilatation and air-fluid levels from 04/25/[address] scan.
[2021-04-23] MEDS: 0.9 % Sodium Chloride 1,000 ML 999 ML IVCONT (10:42)
[2021-04-23] MEDS: ondansetron HCL 4 MG/2 ML VIAL IVPUSH ×2 (10:43→19:51)
[2021-04-23] MEDS: HYDROmorphone HCl 1 MG/ML SYRINGE IVPUSH ×5 (10:43→22:06)
--- NOTE | 2021-04-23 10:52 | ED_ITS ---
HPI - Abdominal Pain General Chief Complaint: Abdominal Pain Stated Complaint: abd pain Time Seen by Provider: 04/23/21 09:01 Source: patient, family and EMS Mode of arrival: EMS Limitations: no limitations History of Present Illness HPI narrative: 45-year-old female with a past medical history of cervical cancer s/p chemo/radiation, history of radiation proctitis, radiation cystitis recent diagnosis of colitis in January of 2021 and has been on mesalamine; surgical hx of cholecystectomy recently diagnosed with C diff yesterday started on Levaquin being followed by Dr. Mejia the quality control clerk presenting to the ED with complaints of worsening diffuse abdominal pain, bloating with associated nausea/vomiting and watery diarrhea for the past week and a half worse today. Reports she ran out of her oxycodone. She was given 500 mL of normal saline bolus by EMS prior to arrival. Patient has also tried Pedialyte to keep up with the loss of the nausea/vomiting and diarrhea that she has been having over the past few days. Although her symptoms were not improving therefore she decided to come here for further evaluation treatment. She was recently admitted on 04/06/2021 until 04/07/2021 for abdominal pain/pancolitis was given prednisone taper/Levaquin and pain meds and her symptoms improved and she was discharged. She is scheduled for an outpatient capsule endoscopy with GI. Patient denies any measured fevers, chills, dizziness, headaches, neck pain/stiffness, trouble swallowing or breathing, sore throat, loss of taste or smell, rhinorrhea/nasal congestion, chest pain or shortness of breath, dyspnea on exertion, orthopnea, palpitations, radiation of the abdominal pain, dysuria, hematuria, abnormal vaginal discharge, rashes, black or bloody stools, black or bloody emesis, possible bad food exposure, lower extremity edema or calf tenderness or any other symptoms complaints or concerns at this time. MD elicited complaint: abdominal pain Pertinent past history: other (See above) Pain Consistency: constant Location: diffuse Severity: severe Pain scale (0-10): 10 Quality: aching Radiation: none Migration to: no migration Relieving factors: nothing Associated symptoms: nausea, vomiting and diarrhea Related Data Home Medications Medication Instructions Recorded Confirmed clonazepam 0.5 mg tablet 0.5 mg PO TID 09/09/20 04/23/21 norgestimate 0.25 mg-ethinyl 1 tab PO DAILY 09/09/20 04/23/21 estradiol 35 mcg tablet (Estarylla) oxycodone 5 mg tablet 1 tab PO TID PRN 09/09/20 04/23/21 zolpidem 12.5 mg tablet,extended 1 tab PO BEDTIME PRN 09/09/20 04/23/21 release,multiphase dicyclomine 20 mg tablet 20 mg PO QID 04/06/21 04/23/21 mesalamine 400 mg capsule (with 2 cap PO TID 04/06/21 04/23/21 delayed release tablets inside) (Delzicol) omeprazole 40 mg capsule,delayed 1 cap PO QAM 04/23/21 04/23/21 release ondansetron 4 mg disintegrating 1 tab PO DAILY 04/23/21 04/23/21 tablet prednisone 10 mg tablet 30 mg PO DAILY 04/23/21 04/23/21 Previous Rx's Medication Instructions Recorded vancomycin 125 mg capsule 125 mg PO QID 10 Days #40 cap 04/22/21 Allergies Allergy/AdvReac Type Severity Reaction Status Date / Time guaifenesin [GUAIFENESIN] Allergy Intermediate HIVES Verified 04/06/21 12:53 metaproterenol [From Alupent] Allergy Mild PALPITATIONS, Verified 04/06/21 12:53 RASH Review of Systems Review of Systems Constitutional : + fatigue/malaise, No Weight loss, No Fever, No Chills, No Night Sweats ENT/Mouth : No Hearing loss, No Ear Pain, No Nasal Congestion, No Sinus Pain, No Hoarseness, No sore throat, No Rhinorrhea, No Swallowing Difficulty Eyes: No Eye Pain, No Swelling, No Redness, No Foreign Body, No Discharge, No Vision Changes Cardiovascular : No Chest Pain, No SOB, No Dyspnea on Exertion, No Orthopnea, No Edema, No Palpitations Respiratory : No Cough, No Sputum, No Wheezing, No Smoke Exposure, No Dyspnea Gastrointestinal : + nausea/vomiting/diarrhea and diffuse abdominal pain, No Constipation, No Hematochezia, No Melena Genitourinary : no irregular bleeding, No Dysuria, No Urinary Frequency, No Hematuria, No Urinary Incontinence, No Urgency, No Flank Pain, No Urinary Flow Changes, No Hesitancy Musculoskeletal : No joint pain, No Myalgias, No Joint Swelling Skin : No Skin Lesions, No rash Neuro : No Weakness, No Numbness, No Paresthesias, No Loss of Consciousness, No Dizziness, No Headache Psych : No Anxiety/Panic, No Depression, No SI/HI/AH/VH, No Social Issues, Heme/Lymph: No Bruising, No Bleeding,No Lymphadenopathy Endocrine : No Polyuria, No Polydipsia, No Temperature Intolerance Yes all other systems are reviewed and are negative [facility] Past Medical History Attestation statement: The following information was validated with the patient. Medical History Anxiety Cervical cancer Cholecystectomy planned Colitis Colitis COVID-19 Radiation cystitis Surgical History Hx of elbow surgery Tubal ligation status Family History Family History Other No family history of coronary artery disease Social History Social History Household Members: Family Housing: House Do you presently have visiting nurse or other home services: No Alcohol intake: never Patient Tobacco Use Status: Current everyday Tobacco user Tobacco use type: Cigarette Cigarettes Per Day: 2 Years Smoked: 20 Second Hand Smoke Exposure: No Use of substances other than those prescribed or required for medical reasons: No Advance Directives: Yes Advance Directives on File: Yes Advance Directives Date on File: 09/10/20 Patient : No service: No Current occupational status: employed Physical Exam ED Vital Signs: Vital Signs - 24 hr 04/23/21 08:47 04/23/21 11:56 Temperature 98.5 F 98.5 F Pulse Rate 77 76 Respiratory Rate 16 18 Blood Pressure 145/85 H 115/69 Pulse Oximetry 99 94 BMI result Body Mass Index 21.0 Vital signs have been reviewed and blood pressure 145/85. Pulse 77. Respirations 16. Temperature 98.5 degrees. Oxygen saturation 99% on room air. Appearance: Alert. Oriented X3. No acute distress. Head: Normal external exam. Normocephalic. Eyes: PERRLA. EOMI. Conjunctiva and sclera normal. Eyelids normal. ENT: Pharynx normal. Uvula midline. Moist mucous membranes. No trismus noted. No drooling noted. No muffled voice noted. Neck: Normal inspection. Neck supple. FROM. No adenopathy. No meningeal signs. CVS: Normal heart rate and rhythm. Heart sound normal. No murmurs noted. Pulses normal throughout. Respiratory: No respiratory distress. Painless inspiration. Breath sounds normal. No wheezes/rales/rhonchi noted. Chest nontender. No accessory muscle usage noted or decreased air movement noted. Abdomen: Soft and moderate tenderness to palpation with light palpation appears mildly distended and patient is guarding throughout the entire exam of the abdomen. Otherwise No rigidity. Bowel sounds normal in all 4 quadrants. No distention noted. No organomegaly noted. No visible injury noted. No rebound tenderness. Negative Rovsing sign. Negative obturator's sign. Negative psoas sign. Negative Angela sign. Back: No CVA tenderness. Full range of motion noted. Skin: Skin warm and dry. Normal skin color. Normal skin turgor. No rashes/les ions/lacerations noted. Extremities: No lower extremity edema or calf tenderness is noted. Extremities exhibit normal range of motion. Extremities nontender. Neuro: Oriented X 3. No motor deficit. No sensory deficit. Reflexes normal. Normal steady gait. CN's II-XII intact bilaterally? Vascular: +2 radial pulses bilaterally. + 2 distal pedal pulses bilaterally. No cyanosis to upper lower extremity. Normal capillary refill to upper and lower extremity nails. Course Course Course Narrative: 9:40am - 45-year-old female with a past medical history of cervical cancer s/p chemo/radiation, history of radiation proctitis, radiation cystitis recent diagnosis of colitis in January of 2021 and has been on mesalamine; surgical hx of cholecystectomy recently diagnosed with C diff yesterday started on Levaquin being followed by Dr. Mejia the quality control clerk presenting to the ED with complaints of worsening diffuse abdominal pain, bloating with associated nausea/vomiting and watery diarrhea for the past week and a half worse today. Reports she ran out of her oxycodone. She was given 500 mL of normal saline bolus by EMS prior to arrival. Patient has also tried Pedialyte to keep up with the loss of the nausea/vomiting and diarrhea that she has been having over the past few days. Although her symptoms were not improving therefore she decided to come here for further evaluation treatment. She was recently admitted on 04/06/2021 until 04/07/2021 for abdominal pain/pancolitis was given prednisone taper/Levaquin and pain meds and her symptoms improved and she was discharged. She is scheduled for an outpatient capsule endoscopy with GI. Plan: Labs, blood cultures, lactic acid, CT scan abdomen pelvis IV contrast. Provide a L of IV fluids with 4 mg of Zofran and 1 mg of Dilaudid restart the patient back on the Levaquin that she was already taking at home then re-evaluate. Although plan is to admit for nausea/vomiting diffuse abdominal pain with diarrhea due to C diff unable to tolerate p.o. antibiotics at home. Patient and significant other at bedside understand and agree this plan. Reevaluation(s) Reevaluation #1: - labs reviewed and patient with an elevated white blood cell count which is consistent with her last visit at 12.2. BUN 8. Calcium 8.1. CRP 2.69. Total protein 5.3. Albumin 3.2. Otherwise all other labs are within normal limits. - patient does not want to have a CT scan of her abdomen and pelvis due to she has had multiple scans in her last scan was on 04/06/2021 - therefore I discussed this case with Dr. Mejia and he reported that the patient should not be given Levaquin that he actually started her on vancomycin therefore I discontinued the Levaquin and patient will be started on vanco at this time. He reports that her CT scans usually are unchanged when compared to priors therefore he will not push for CT scan at this time. He reported that she can be admitted for nausea/vomiting with abdominal pain and C diff and patient is agreeable to this. Will discuss this with patient with Radha Escalante PA-C on the hospitalist unit. Time: 12:15 Reevaluation #2: - I discussed this case with Dr. Fernandes he reported that IV vancomycin will not treat C diff and that it would better be treated with p.o. vanco although patient is not tolerating anything by mouth at this time therefore we will give IV Flagyl until the patient can tolerate p.o.. Patient was updated and she understands agrees with this plan. Time: 12:27 MDM - Abdominal Pain Medical Records Attestation: I reviewed the patient's medical records. Lab Data Attestation: I reviewed the patient's lab results. Result diagrams: 04/23/21 11:48 04/23/21 11:48 Labs: Lab Results 04/23/21 04/23/21 04/23/21 Range/Units 11:47 11:48 11:48 WBC 12.2 H (4.8-10.8) X10*3/uL RBC 4.07 L (4.20-5.50) X10*6/uL Hgb 12.6 (12.0-16.0) g/dl Hct 39.3 (37.0-47.0) % MCV 96.6 (80.0-98.0) fL MCH 31.0 (27.0-33.0) pg MCHC 32.1 (31.0-35.0) g/dl RDW 13.4 (11.0-16.0) % Plt Count 322 (160-400) X10*3/uL MPV 8.9 L (9.4-12.3) fL Immature Gran % (Auto) 0.3 (0.0-0.4) % Neut % (Auto) 86.7 H (45-73) % Lymph % (Auto) 6.9 L (20-40) % [place] % (Auto) 5.8 (2-11) % Eos % (Auto) 0.2 (0-4) % Baso % (Auto) 0.1 (0-2) % Lymph # (Auto) 0.8 L (1.2-4.9) X10*3/uL [place] # (Auto) 0.7 (0.1-1.2) X10*3/uL Eos # (Auto) 0.0 (0.0-0.4) X10*3/uL Baso # (Auto) 0.0 (0.0-0.2) X10*3/uL Abs Immat Gran (auto) 0.04 H (0.00-0.03) X10*3/uL Absolute Neuts (auto) 10.6 H (2.0-8.3) x10*3/uL Absolute Nucleated RBC 0.000 (0.0-0.012) X10*3/uL Nucleated RBC % (auto) 0.0 (0.0-0.2) /100WBC Hold Purple Top SEE NOTE PT (9.9-13.0) SEC INR (0.9-1.1) Sodium (135-145) mmol/L Potassium (3.3-5.1) mmol/L Chloride (96-108) mmol/L Carbon Dioxide (22-29) mmol/L Anion Gap (12-20) BUN (9-16) mg/dL Creatinine (0.5-1.4) mg/dL Estim Creat Clear Calc Estimated GFR Random Glucose (60-115) mg/dL Lactic Acid (0.5-2.0) mmol/L Calcium (8.4-10.2) mg/dL Magnesium (1.6-2.6) mg/dL Total Bilirubin (0.0-1.0) mg/dL AST (5-31) U/L ALT (0-31) U/L Alkaline Phosphatase (39-117) U/L C-Reactive Protein 2.69 H (< or = 0.50) mg/dL Total Protein (6.5-8.0) g/dL Albumin (3.5-5.0) g/dL 04/23/21 04/23/21 04/23/21 Range/Units 11:48 11:48 11:48 WBC (4.8-10.8) X10*3/uL RBC (4.20-5.50) X10*6/uL Hgb (12.0-16.0) g/dl Hct (37.0-47.0) % MCV (80.0-98.0) fL MCH (27.0-33.0) pg MCHC (31.0-35.0) g/dl RDW (11.0-16.0) % Plt Count (160-400) X10*3/uL MPV (9.4-12.3) fL Immature Gran % (Auto) (0.0-0.4) % Neut % (Auto) (45-73) % Lymph % (Auto) (20-40) % [place] % (Auto) (2-11) % Eos % (Auto) (0-4) % Baso % (Auto) (0-2) % Lymph # (Auto) (1.2-4.9) X10*3/uL [place] # (Auto) (0.1-1.2) X10*3/uL Eos # (Auto) (0.0-0.4) X10*3/uL Baso # (Auto) (0.0-0.2) X10*3/uL Abs Immat Gran (auto) (0.00-0.03) X10*3/uL Absolute Neuts (auto) (2.0-8.3) x10*3/uL Absolute Nucleated RBC (0.0-0.012) X10*3/uL Nucleated RBC % (auto) (0.0-0.2) /100WBC Hold Purple Top PT 11.5 (9.9-13.0) SEC INR 1.0 (0.9-1.1) Sodium 140 (135-145) mmol/L Potassium 3.7 (3.3-5.1) mmol/L Chloride 106 (96-108) mmol/L Carbon Dioxide 25 (22-29) mmol/L Anion Gap 13 (12-20) BUN 8 L (9-16) mg/dL Creatinine 0.63 (0.5-1.4) mg/dL Estim Creat Clear Calc 7.9 Estimated GFR > 60 Random Glucose 98 (60-115) mg/dL Lactic Acid 0.6 (0.5-2.0) mmol/L Calcium 8.1 L (8.4-10.2) mg/dL Magnesium 1.9 (1.6-2.6) mg/dL Total Bilirubin 0.5 (0.0-1.0) mg/dL AST 21 D (5-31) U/L ALT 31 (0-31) U/L Alkaline Phosphatase 57 (39-117) U/L C-Reactive Protein (< or = 0.50) mg/dL Total Protein 5.3 L (6.5-8.0) g/dL Albumin 3.2 L (3.5-5.0) g/dL Critical Care Time Critical Care Time Critical Care Time: Yes Total Critical Care Time: 60 Attestation: I personally attest to this time spent taking care of the patient Discharge Plan Discharge Clinical Impression: C. difficile colitis, Abdominal pain, Nausea & vomiting Patient Disposition: Admitted As Inpatient
--- NOTE | 2021-04-23 11:35 | PHA.MEDREC ---
Pharmacy Consult ? Medication Reconciliation Pharmacy has completed the medication reconciliation. There are no remarkable issue for provider's attention. Fidelia Faulkner, FlynnD
[2021-04-23 11:53] LABS: MANUAL DIFF FLAG NO
[2021-04-23 11:55] LABS: Basophils Percent Auto 0.1 % (0-2); Eosinophils Percent Auto 0.2 % (0-4); Hematocrit 39.3 % (37.0-47.0); Hemoglobin 12.6 g/dl (12.0-16.0); Imm Gran Abs Auto 0.04 X10*3/uL (0.00-0.03); Imm Gran Pct Auto 0.3 % (0.0-0.4); Lymphocytes Absolute Auto 0.8 X10*3/uL (1.2-4.9); Lymphocytes Percent Auto 6.9 % (20-40); Mean Corpuscular HGB Conc 32.1 g/dl (31.0-35.0); Mean Corpuscular Volume 96.6 fL (80.0-98.0); Mean Platelet Volume 8.9 fL (9.4-12.3); Monocytes Absolute Auto 0.7 X10*3/uL (0.1-1.2); Monocytes Percent Auto 5.8 % (2-11); Neutrophils Absolute Auto 10.6 x10*3/uL (2.0-8.3); Neutrophils Percent Auto 86.7 % (45-73); Platelet Count 322 X10*3/uL (160-400); Red Blood Count 4.07 X10*6/uL (4.20-5.50); Red Cell Distribution Width 13.4 % (11.0-16.0); White Blood Count 12.2 X10*3/uL (4.8-10.8)
[2021-04-23] MEDS: levoFLOXacin/D5W 750 MG/150 ML PIGGYBACK 100 MG IV (12:01)
[2021-04-23 12:04] LABS: Prothrombin Time 11.5 SEC (9.9-13.0)
[2021-04-23 12:05] LABS: Lactic Acid 0.6 mmol/L (0.5-2.0)
[2021-04-23 12:09] LABS: C Reactive Protein 2.69 mg/dL (< or = 0.50)
[2021-04-23 12:10] LABS: Alanine Aminotransferase 31 U/L (0-31); Albumin Level 3.2 g/dL (3.5-5.0); Alkaline Phosphatase 57 U/L (39-117); Anion Gap 13 (12-20); Aspartate Amino Transferase 21 U/L (5-31); Bilirubin Total 0.5 mg/dL (0.0-1.0); Blood Urea Nitrogen 8 mg/dL (9-16); Calcium 8.1 mg/dL (8.4-10.2); Carbon Dioxide 25 mmol/L (22-29); Chloride 106 mmol/L (96-108); Creatinine Clr Calc Pharmacy 7.9; Estimated Glomerular Filt Rate > 60; Glucose Random 98 mg/dL (60-115); Magnesium 1.9 mg/dL (1.6-2.6); Potassium 3.7 mmol/L (3.3-5.1); Sodium 140 mmol/L (135-145); Total Protein 5.3 g/dL (6.5-8.0)
[2021-04-23 12:44] LABS: HCG Quantitative < 2 mIU/mL
[2021-04-23 12:47] LABS: Erythrocyte Sedimentation Rate 12 MM/HR (0-20)
[2021-04-23] MEDS: metroNIDAZOLE/NS 500 MG/100 ML PIGGYBACK 100 MG IV ×2 (12:51→21:17)
--- NOTE | 2021-04-23 12:59 | PC.NURSE ---
dr. romero at bedside, pt aware of plan of care for admission to hosp.
--- NOTE | 2021-04-23 13:15 | P.HPHOSP_ITS ---
History of Present Illness Date of Service: 04/23/21 Chief Complaint: Abdominal pain 45-year-old female presented with abdominal pain. Patient has had multiple admissions with the last few months for abdominal pain, pancolitis. Exact etiology still to be determined, is being treated like IBD. Most recently disc harged on steroid taper 04/07/21, after 1 day admission for abdominal pain, at that time she did receive 1 dose of Levaquin. She was feeling well for about a week, then began to have abdominal pain again, decreased appetite, inability to tolerate p.o. with nausea vomiting. She was seen by Gastroenterology who ordered KUB which showed mild constipation, and C diff which was positive. Patient continued to have severe pain so she came to the hospital. In e.d., CRP has decreased from 12.56 on April 19 to 2.69, no significant electrolyte abnormalities, WBC mildly elevated at 12.2, pain uncontrolled. Review of Systems Review of Systems: Constitutional: Denies fever, denies Chills Eyes: denies blurry vision ENT: denies sore throat CVS: denies chest pain Respiratory: Denies dyspnea GI: abdominal pain : denies dysuria MSK: denies neck pain Skin: denies rash Neuro: denies specific motor weakness Psych: denies suicidal ideation Endocrine: denies heat/cold intolerance Hematologic: denies easy bleeding Allergy: denies hives [facility] Medical History Anxiety Cervical cancer Cholecystectomy planned Colitis Colitis COVID-19 Radiation cystitis Family History Other No family history of coronary artery disease Surgical History Hx of elbow surgery Tubal ligation status Social History Household Members: Family Housing: House Do you presently have visiting nurse or other home services: No Alcohol intake: never Patient Tobacco Use Status: Current everyday Tobacco user Tobacco use type: Cigarette Cigarettes Per Day: 2 Years Smoked: 20 Second Hand Smoke Exposure: No Use of substances other than those prescribed or required for medical reasons: No Advance Directives: Yes Advance Directives on File: Yes Advance Directives Date on File: 09/10/20 Patient : No service: No Current occupational status: employed Meds Allergies Allergy/AdvReac Type Severity Reaction Status Date / Time guaifenesin [GUAIFENESIN] Allergy Intermediate HIVES Verified 04/06/21 12:53 metaproterenol [From Alupent] Allergy Mild PALPITATIONS, Verified 04/06/21 12:53 RASH Active Medications: Current Medications Clonazepam (Clonazepam 0.5 Mg Tablet) 0.5 mg PO TID [facility] Dicyclomine HCl (Dicyclomine Hcl 10 Mg Capsule) 20 mg PO QID [facility] Hydromorphone HCl (Hydromorphone Hcl 1 Mg/Ml Syringe) 1 mg IVPUSH Q2H PRN; Protocol PRN Reason: moderate pain Metronidazole (Flagyl) 500 mg in 100 mls @ 100 mls/hr IV ONCE ONE Stop: 04/23/21 13:26 Last Admin: 04/23/21 12:51 Dose: 100 mls/hr Documented by: Metronidazole (Flagyl) 500 mg in 100 mls @ 100 mls/hr IV Q8H [facility] Lactated Ringer's (Lr) 1,000 mls @ 80 mls/hr IVCONT .[id number] [facility] Mesalamine (Mesalamine 400 Mg Cap.Drtab.) 800 mg PO TID [facility] Non-Formulary Medication (Norgestimate-Ethinyl Estradiol [Estarylla]) 1 tab PO DAILY [facility] Non-Formulary Medication (Zolpidem) 1 tab PO BEDTIME PRN PRN Reason: Sleep Omeprazole (Omeprazole 40 Mg Capsule.Dr) 40 mg PO QAM [facility] Ondansetron HCl (Ondansetron Hcl 4 Mg/2 Ml Vial) 4 mg IVPUSH Q6H PRN PRN Reason: nausea Pharmacy Consult (Consult Rx Perform Med Rec) 1 each MISCELLANE ONCE PRN PRN Reason: Consult order Prednisone (Prednisone 10 Mg Tablet) 30 mg PO DAILY [facility] Vancomycin HCl (Vancomycin Hcl 125 Mg Capsule) 125 mg PO QID [facility] Home Medications Medication Instructions Recorded Confirmed Last Taken Type clonazepam 0.5 mg tablet 0.5 mg PO TID 09/09/20 04/23/21 01/04/21 History norgestimate 0.25 mg-ethinyl 1 tab PO DAILY 09/09/20 04/23/21 01/04/21 History estradiol 35 mcg tablet (Estarylla) oxycodone 5 mg tablet 1 tab PO TID PRN 09/09/20 04/23/21 01/04/21 History zolpidem 12.5 mg tablet,extended 1 tab PO BEDTIME PRN 09/09/20 04/23/21 01/03/21 History release,multiphase dicyclomine 20 mg tablet 20 mg PO QID 04/06/21 04/23/21 Unknown History mesalamine 400 mg capsule (with 2 cap PO TID 04/06/21 04/23/21 Unknown History delayed release tablets inside) (Delzicol) omeprazole 40 mg capsule,delayed 1 cap PO QAM 04/23/21 04/23/21 Unknown History release ondansetron 4 mg disintegrating 1 tab PO DAILY 04/23/21 04/23/21 Unknown History tablet prednisone 10 mg tablet 30 mg PO DAILY 04/23/21 04/23/21 Unknown History Physical Exam Vital Signs and Narrative: Vital Signs: Last Vital Signs Temp 98.7 F 04/23/21 12:47 Pulse 75 04/23/21 12:47 Resp 18 04/23/21 12:47 BP 129/76 04/23/21 12:47 Pulse Ox 96 04/23/21 12:47 BMI result Body Mass Index 21.0 General: AO X 3, in distress Resp: CTA bilateral, no accessory muscles used CVS: S1,S2,RRR GI: soft, tender, non distended Neuro: motor grossly intact, alert Psych: appropriate affect, appropriate insight Results Labs CBC and Chem 7: 04/23/21 11:48 04/23/21 11:48 Labs: Laboratory Results - last 24 hr 04/23/21 04/23/21 04/23/21 11:47 11:48 11:48 MCV 96.6 MCH 31.0 MCHC 32.1 RDW 13.4 Plt Count 322 MPV 8.9 L Immature Gran % (Auto) 0.3 Neut % (Auto) 86.7 H Lymph % (Auto) 6.9 L [place] % (Auto) 5.8 Eos % (Auto) 0.2 Baso % (Auto) 0.1 Lymph # (Auto) 0.8 L [place] # (Auto) 0.7 Eos # (Auto) 0.0 Baso # (Auto) 0.0 Abs Immat Gran (auto) 0.04 H Absolute Neuts (auto) 10.6 H Absolute Nucleated RBC 0.000 Nucleated RBC % (auto) 0.0 ESR Hold Purple Top SEE NOTE PT INR Anion Gap Estim Creat Clear Calc Estimated GFR Random Glucose Lactic Acid Calcium Magnesium Total Bilirubin AST ALT Alkaline Phosphatase C-Reactive Protein 2.69 H Total Protein Albumin Beta HCG, Quant 04/23/21 04/23/21 04/23/21 11:48 11:48 11:48 MCV MCH MCHC RDW Plt Count MPV Immature Gran % (Auto) Neut % (Auto) Lymph % (Auto) [place] % (Auto) Eos % (Auto) Baso % (Auto) Lymph # (Auto) [place] # (Auto) Eos # (Auto) Baso # (Auto) Abs Immat Gran (auto) Absolute Neuts (auto) Absolute Nucleated RBC Nucleated RBC % (auto) ESR 12 Hold Purple Top PT 11.5 INR 1.0 Anion Gap 13 Estim Creat Clear Calc 7.9 Estimated GFR > 60 Random Glucose 98 Lactic Acid Calcium 8.1 L Magnesium 1.9 Total Bilirubin 0.5 AST 21 D ALT 31 Alkaline Phosphatase 57 C-Reactive Protein Total Protein 5.3 L Albumin 3.2 L Beta HCG, Quant < 2 04/23/21 11:48 MCV MCH MCHC RDW Plt Count MPV Immature Gran % (Auto) Neut % (Auto) Lymph % (Auto) [place] % (Auto) Eos % (Auto) Baso % (Auto) Lymph # (Auto) [place] # (Auto) Eos # (Auto) Baso # (Auto) Abs Immat Gran (auto) Absolute Neuts (auto) Absolute Nucleated RBC Nucleated RBC % (auto) ESR Hold Purple Top PT INR Anion Gap Estim Creat Clear Calc Estimated GFR Random Glucose Lactic Acid 0.6 Calcium Magnesium Total Bilirubin AST ALT Alkaline Phosphatase C-Reactive Protein Total Protein Albumin Beta HCG, Quant Assessment and Plan (1) C. difficile colitis: Status: Acute Plan 45-year-old female presented with abdominal pain. Severe uncontrolled abdominal pain C diff colitis +/- IBD flare P.o. vancomycin, give IV Flagyl in case not tolerating p.o. IV fluids, antiemetics Continue prednisone, mesalamine IV opiates (uncontrolled with p.o. oxycodone) Clear liquids GI eval Anxiety Clonazepam Insomnia Zolpidem as needed DVT prophylaxis with Lovenox Full code Patient has severe abdominal pain is not being controlled with oxycodone at home his requiring IV opiates, is not tolerating p.o. hydration and is requiring IV fluids, as expected to require at least 2 midnights in the hospital. Quality Stroke Does the patient have a stroke diagnosis?: No VTE Prior VTE?: No VTE Risk Level:: Medical - moderate - high VTE Device Contraindication: Treatment Not Indicated VTE Drug Contraindication: N/A - Med Ordered
[2021-04-23 13:23] LABS: Appearance Urine CLEAR; Color Urine YELLOW; Glucose Urine UA NEG (NEG); Leukocyte Esterase Urine NEG (NEG); Nitrite Urine NEG (NEG); Specific Gravity - Urine 1.015 (1.005-1.025); Urine Blood NEG (NEG); Urine Ketones NEG (NEG); Urine Protein NEG (NEG-TRACE)
[2021-04-23 13:29] LABS: RBC Urine 0 /HPF (0); Squamous Epithelial Cell Urine TRACE /LPF; WBC Urine 0 /HPF (0-4)
[2021-04-23 13:30] LABS: Mucus Urine TRACE /LPF; Renal Epithelial Cells Urine TRACE /LPF
[2021-04-23 13:30] LABS: IDNOW Serial# 08D9AD1C; Influenza A Negative (Negative); Influenza B2 Negative (Negative)
[2021-04-23 13:40] LABS: COVID-19 Test Negative (Negative)
[2021-04-23] MEDS: Lactated Ringers 1,000 ML 80 ML IVCONT (15:04)
[2021-04-23] MEDS: Mesalamine 400 MG CAP.DRTAB. 800 MG PO ×2 (16:33→21:16)
[2021-04-23] MEDS: Dicyclomine HCl 10 MG CAPSULE 20 MG PO ×2 (16:33→21:16)
[2021-04-23] MEDS: vancomycin HCL 125 MG CAPSULE PO ×2 (16:33→21:16)
[2021-04-23] MEDS: clonazePAM 0.5 MG TABLET PO ×2 (16:33→21:16)
[2021-04-23] MEDS: Acetaminophen 325 MG TABLET 650 MG PO (19:51)
--- NOTE | 2021-04-23 21:52 | CONS_ITS ---
DATE OF SERVICE: 04/23/2021 REFERRING PHYSICIAN: Jesus Arriaga MD REASON FOR CONSULTATION: C diff infection and colitis. HISTORY OF PRESENT ILLNESS: The patient is a pleasant 45-year-old woman, well known to me from recent evaluation. She has a history of underlying colitis suggestive of inflammatory bowel disease, which has been treated recently with mesalamine and prednisone. Capsule endoscopy has been pending as an outpatient because of small bowel abnormalities noted on previous CT scanning. She presented to the emergency room earlier today with complaints of severe abdominal pain, which has been an issue for her during her recent illness. She describes severe crampy abdominal pain, which wakes her up and is not controlled at home. She has required narcotic medications in the past. She reports stools have actually become more formed since she has been on prednisone and mesalamine. She was recently evaluated for other causes of her colitis and C diff testing was positive. She was started on vancomycin, but was unable to keep this down as she had nausea and vomiting with her abdominal pain over the last 24 hours, which prompted her to present to the emergency room. For details of her recent colonoscopy and hospitalization. Please see her most recent GI consults. PAST MEDICAL HISTORY: 1. Colitis. 2. Cervical cancer with history of radiation therapy and radiation colitis/cystitis. 3. Anxiety. CURRENT MEDICATIONS: Her current medication list is reviewed in the chart. ALLERGIES: GUAIFENESIN AND METAPROTERENOL. FAMILY HISTORY: Noncontributory. SOCIAL HISTORY: Negative for substance abuse. REVIEW OF SYSTEMS: SKIN: No pruritus. HEENT: Negative. CARDIOPULMONARY: No shortness of breath or chest pain. GASTROINTESTINAL: As above. GENITOURINARY: Negative. NEUROPSYCHIATRIC: Negative. PHYSICAL EXAMINATION: GENERAL: Shows a pleasant female, lying in bed. She is tolerating clear liquids and has not vomited since earlier this morning. VITAL SIGNS: Reviewed in the electronic medical record and are stable. SKIN: Anicteric. HEENT: Shows no scleral icterus. NECK: Without lymphadenopathy or thyromegaly. LUNGS: Clear. HEART: Shows a regular rate and rhythm. S1, S2. No murmur. ABDOMEN: Soft without focal masses or tenderness. Bowel sounds are present. There is some diffuse tenderness to palpation, but no guarding or rebound. EXTREMITIES: Without edema. LABORATORY DATA: Reviewed. She has refused CT scanning. IMPRESSION: Colitis with recent Clostridium difficile infection. Her underlying colitis process appears to be improving as judging by her improvement in her bowel pattern. It is not clear if her recent nausea and vomiting are related to underlying C diff infection and I would recommend treating this with IV metronidazole and vancomycin. Currently, she has outpatient capsule endoscopy scheduled to be done and this will be followed up. I would also like her to see her DISPLAY MAKER due to her history of cervical cancer after she is discharged and we will review their most recent imaging with MRI of the pelvis, which was done through her primary care provider's office. I would recommend continuing prednisone 30 mg daily until her capsule endoscopy is done. This was discussed with the patient. Thanks for asking me to see her. I will follow her in the hospital with you. MD BOB Stubbs/SENIA / [phone]
[2021-04-23] MEDS: Zolpidem Tartrate 5 MG TABLET PO (22:07)
[2021-04-24] VITALS: BP 91/50; PULSE 78; RESP 18; TEMP 37.2; O2SAT 97
[2021-04-24 04:00] VITALS: BP 123/77; PULSE 70; RESP 18; TEMP 37.2; O2SAT 97
[2021-04-24] MEDS: HYDROmorphone HCl 1 MG/ML SYRINGE IVPUSH ×7 (04:10→23:24)
[2021-04-24] MEDS: Lactated Ringers 1,000 ML 80 ML IVCONT ×2 (04:11→20:45)
[2021-04-24] MEDS: Omeprazole 40 MG CAPSULE.DR PO (05:30)
[2021-04-24] MEDS: metroNIDAZOLE/NS 500 MG/100 ML PIGGYBACK 100 MG IV ×3 (05:30→20:39)
[2021-04-24 05:48] LABS: Hematocrit 33.7 % (37.0-47.0); Hemoglobin 10.8 g/dl (12.0-16.0); Mean Corpuscular Hemoglobin 31.2 pg (27.0-33.0); Mean Corpuscular Volume 97.4 fL (80.0-98.0); Mean Platelet Volume 8.6 fL (9.4-12.3); Platelet Count 264 X10*3/uL (160-400); Red Blood Count 3.46 X10*6/uL (4.20-5.50); Red Cell Distribution Width 13.5 % (11.0-16.0)
[2021-04-24 06:07] LABS: Anion Gap 11 (12-20); Blood Urea Nitrogen 5 mg/dL (9-16); Calcium 8.3 mg/dL (8.4-10.2); Carbon Dioxide 28 mmol/L (22-29); Chloride 106 mmol/L (96-108); Creatinine Clr Calc Pharmacy 89.8; Estimated Glomerular Filt Rate > 60; Glucose Fasting 88 mg/dL (60-99); Potassium 3.7 mmol/L (3.3-5.1); Sodium 141 mmol/L (135-145)
[2021-04-24 07:59] VITALS: BP 123/69; PULSE 80; RESP 17; TEMP 36.6; O2SAT 97
[2021-04-24] MEDS: predniSONE 10 MG TABLET 30 MG PO (08:32)
[2021-04-24] MEDS: vancomycin HCL 125 MG CAPSULE PO ×4 (08:33→20:40)
[2021-04-24] MEDS: clonazePAM 0.5 MG TABLET PO ×3 (08:33→20:40)
[2021-04-24] MEDS: Mesalamine 400 MG CAP.DRTAB. 800 MG PO ×3 (08:33→20:39)
[2021-04-24] MEDS: Dicyclomine HCl 10 MG CAPSULE 20 MG PO ×4 (08:40→20:39)
--- NOTE | 2021-04-24 09:24 | MHC.CM.PN ---
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 PT IS VACCINATED AGAINST COVID-19 WITH [facility] (APR 2020) DC PLAN, HOME NO SERVICES PT TO ARRANGE TRANSPORT
[2021-04-24 11:22] VITALS: BP 115/67; PULSE 70; RESP 16; TEMP 36.9; O2SAT 96
--- NOTE | 2021-04-24 11:34 | HO.PM.IMPN ---
Subjective Subjective Date of Service: 04/24/21 Interval History: cc: abd pain interval history: a bit better, still need iv pain meds though Cardiovascular Cardiovascular: Reports no additional cardiovascular complaints Respiratory Respiratory: Reports no additional respiratory complaints Physical Exam Vital Signs: Vital Signs: Last Vital Signs Temp 98.4 F 04/24/21 11:22 Pulse 70 04/24/21 11:22 Resp 16 04/24/21 11:22 BP 115/67 04/24/21 11:22 Pulse Ox 96 04/24/21 11:22 BMI result Body Mass Index 21.0 General: AO X 3, no acute distress Resp: CTA bilateral, no accessory muscles used CVS: S1,S2,RRR GI: soft, tender, non distended Neuro: motor grossly intact, alert Psych: appropriate affect, appropriate insight Objective Data Active Medications Acetaminophen (Acetaminophen 325 Mg Tablet) 650 mg PO Q6H PRN PRN Reason: Pain, Mild (Pain Scale 1-3) Last Admin: 04/23/21 19:51 Dose: 650 mg Documented by: SKY Clonazepam (Clonazepam 0.5 Mg Tablet) 0.5 mg PO TID [facility] Last Admin: 04/24/21 08:33 Dose: 0.5 mg Documented by: ROLO Dicyclomine HCl (Dicyclomine Hcl 10 Mg Capsule) 20 mg PO QID [facility] Last Admin: 04/24/21 08:40 Dose: 20 mg Documented by: ROLO Enoxaparin Sodium (Enoxaparin Sodium 40 Mg/0.4 Ml Syringe) 40 mg SUBCUT DAILY [facility] Last Admin: 04/24/21 08:33 Dose: Not Given Documented by: ROLO Non-Admin Reason: Patient Refused Hydromorphone HCl (Hydromorphone Hcl 1 Mg/Ml Syringe) 1 mg IVPUSH Q2H PRN; Protocol PRN Reason: moderate pain Last Admin: 04/24/21 08:33 Dose: 1 mg Documented by: ROLO Metronidazole (Flagyl) 500 mg in 100 mls @ 100 mls/hr IV Q8H [facility] Last Infusion: 04/24/21 06:49 Dose: 0 mls/hr Documented by: SKY Lactated Ringer's (Lr) 1,000 mls @ 80 mls/hr IVCONT .[id number] [facility] Last Admin: 04/24/21 04:11 Dose: 80 mls/hr Documented by: SKY Mesalamine (Mesalamine 400 Mg Cap.Drtab.) 800 mg PO TID [facility] Last Admin: 04/24/21 08:33 Dose: 800 mg Documented by: ROLO Non-Formulary Medication (Norgestimate-Ethinyl Estradiol [Estarylla]) 1 tab PO DAILY [facility] Omeprazole (Omeprazole 40 Mg Capsule.Dr) 40 mg PO DAILY@0630 [facility] Last Admin: 04/24/21 05:30 Dose: 40 mg Documented by: SKY Ondansetron HCl (Ondansetron Hcl 4 Mg/2 Ml Vial) 4 mg IVPUSH Q6H PRN PRN Reason: nausea Last Admin: 04/23/21 19:51 Dose: 4 mg Documented by: SKY Pharmacy Consult (Consult Rx Perform Med Rec) 1 each MISCELLANE ONCE PRN PRN Reason: Consult order Prednisone (Prednisone 10 Mg Tablet) 30 mg PO DAILY [facility] Last Admin: 04/24/21 08:32 Dose: 30 mg Documented by: ROLO Sodium Chloride (0.9 % Sodium Chloride Flush 3 Ml Syringe) 3 ml IVFLUSH QSHIFT [facility] Last Admin: 04/24/21 07:18 Dose: Not Given Documented by: SKY Non-Admin Reason: IV Running Vancomycin HCl (Vancomycin Hcl 125 Mg Capsule) 125 mg PO QID [facility] Last Admin: 04/24/21 08:33 Dose: 125 mg Documented by: ROLO Zolpidem Tartrate (Zolpidem Tartrate 5 Mg Tablet) 5 mg PO BEDTIME PRN PRN Reason: Sleep Last Admin: 04/23/21 22:07 Dose: 5 mg Documented by: SKY Labs CBC & Chem 7: 04/24/21 05:30 04/24/21 05:30 Labs: Laboratory Results - last 24 hr 04/23/21 04/23/21 04/23/21 11:47 11:48 11:48 MCV 96.6 MCH 31.0 MCHC 32.1 RDW 13.4 Plt Count 322 MPV 8.9 L Immature Gran % (Auto) 0.3 Neut % (Auto) 86.7 H Lymph % (Auto) 6.9 L [place] % (Auto) 5.8 Eos % (Auto) 0.2 Baso % (Auto) 0.1 Lymph # (Auto) 0.8 L [place] # (Auto) 0.7 Eos # (Auto) 0.0 Baso # (Auto) 0.0 Abs Immat Gran (auto) 0.04 H Absolute Neuts (auto) 10.6 H Absolute Nucleated RBC 0.000 Nucleated RBC % (auto) 0.0 ESR Hold Purple Top SEE NOTE PT INR Anion Gap Estim Creat Clear Calc Estimated GFR Random Glucose Fasting Glucose Lactic Acid Calcium Magnesium Total Bilirubin AST ALT Alkaline Phosphatase C-Reactive Protein 2.69 H Total Protein Albumin Beta HCG, Quant Urine Color Urine Appearance Urine pH Ur Specific [place] Urine Protein Urine Glucose (UA) Urine Ketones Urine Blood Urine Nitrite Ur Leukocyte Esterase Urine RBC Urine WBC Ur Squamous Epith Cells Ur Renal Epithelial Cell Urine Bacteria Urine Mucus COVID-19 (JANIS) COVID-19 Clin Com Influenza Type A (LINDA) Influenza Type B (LINDA) Influenza A & B Note 04/23/21 04/23/21 04/23/21 11:48 11:48 11:48 MCV MCH MCHC RDW Plt Count MPV Immature Gran % (Auto) Neut % (Auto) Lymph % (Auto) [place] % (Auto) Eos % (Auto) Baso % (Auto) Lymph # (Auto) [place] # (Auto) Eos # (Auto) Baso # (Auto) Abs Immat Gran (auto) Absolute Neuts (auto) Absolute Nucleated RBC Nucleated RBC % (auto) ESR 12 Hold Purple Top PT 11.5 INR 1.0 Anion Gap 13 Estim Creat Clear Calc 7.9 Estimated GFR > 60 Random Glucose 98 Fasting Glucose Lactic Acid Calcium 8.1 L Magnesium 1.9 Total Bilirubin 0.5 AST 21 D ALT 31 Alkaline Phosphatase 57 C-Reactive Protein Total Protein 5.3 L Albumin 3.2 L Beta HCG, Quant < 2 Urine Color Urine Appearance Urine pH Ur Specific [place] Urine Protein Urine Glucose (UA) Urine Ketones Urine Blood Urine Nitrite Ur Leukocyte Esterase Urine RBC Urine WBC Ur Squamous Epith Cells Ur Renal Epithelial Cell Urine Bacteria Urine Mucus COVID-19 (JANIS) COVID-19 Clin Com Influenza Type A (LINDA) Influenza Type B (LINDA) Influenza A & B Note 04/23/21 04/23/21 04/23/21 11:48 13:03 13:07 MCV MCH MCHC RDW Plt Count MPV Immature Gran % (Auto) Neut % (Auto) Lymph % (Auto) [place] % (Auto) Eos % (Auto) Baso % (Auto) Lymph # (Auto) [place] # (Auto) Eos # (Auto) Baso # (Auto) Abs Immat Gran (auto) Absolute Neuts (auto) Absolute Nucleated RBC Nucleated RBC % (auto) ESR Hold Purple Top PT INR Anion Gap Estim Creat Clear Calc Estimated GFR Random Glucose Fasting Glucose Lactic Acid 0.6 Calcium Magnesium Total Bilirubin AST ALT Alkaline Phosphatase C-Reactive Protein Total Protein Albumin Beta HCG, Quant Urine Color YELLOW Urine Appearance CLEAR Urine pH 7.0 Ur Specific [place] 1.015 Urine Protein NEG Urine Glucose (UA) NEG Urine Ketones NEG Urine Blood NEG Urine Nitrite NEG Ur Leukocyte Esterase NEG Urine RBC 0 Urine WBC 0 Ur Squamous Epith Cells TRACE Ur Renal Epithelial Cell TRACE Urine Bacteria NONE Urine Mucus TRACE COVID-19 (JANIS) COVID-19 Clin Com Influenza Type A (LINDA) Negative Influenza Type B (LINDA) Negative Influenza A & B Note See Note 04/23/21 04/24/21 04/24/21 13:07 05:30 05:30 MCV 97.4 MCH 31.2 MCHC 32.0 RDW 13.5 Plt Count 264 MPV 8.6 L Immature Gran % (Auto) Neut % (Auto) Lymph % (Auto) [place] % (Auto) Eos % (Auto) Baso % (Auto) Lymph # (Auto) [place] # (Auto) Eos # (Auto) Baso # (Auto) Abs Immat Gran (auto) Absolute Neuts (auto) Absolute Nucleated RBC 0.000 Nucleated RBC % (auto) 0.0 ESR Hold Purple Top PT INR Anion Gap 11 L Estim Creat Clear Calc 89.8 Estimated GFR > 60 Random Glucose Fasting Glucose 88 Lactic Acid Calcium 8.3 L Magnesium Total Bilirubin AST ALT Alkaline Phosphatase C-Reactive Protein Total Protein Albumin Beta HCG, Quant Urine Color Urine Appearance Urine pH Ur Specific [place] Urine Protein Urine Glucose (UA) Urine Ketones Urine Blood Urine Nitrite Ur Leukocyte Esterase Urine RBC Urine WBC Ur Squamous Epith Cells Ur Renal Epithelial Cell Urine Bacteria Urine Mucus COVID-19 (JANIS) Negative COVID-19 Clin Com See Note Influenza Type A (LINDA) Influenza Type B (LINDA) Influenza A & B Note Assessment and Plan (1) C. difficile colitis: Status: Acute Plan 45-year-old female presented with abdominal pain. Severe uncontrolled abdominal pain C diff colitis +/- IBD flare conitnue P.o. vancomycin (toleratine ok), giving IV Flagyl in case not tolerating p.o. IV fluids, antiemetics Continue prednisone 30mg, mesalamine IV opiates (uncontrolled with p.o. oxycodone) will advance to solids GI following Anxiety Clonazepam Insomnia Zolpidem as needed DVT prophylaxis with Lovenox Full code reason for continued hospitalization: still requiring iv opiates for pain control Quality Stroke Does the patient have a stroke diagnosis?: No VTE Prior VTE?: No VTE Risk Level:: Medical - moderate - high VTE Device Contraindication: Treatment Not Indicated VTE Drug Contraindication: N/A - Med Ordered
[2021-04-24] MEDS: 0.9 % Sodium Chloride Flush 3 ML SYRINGE IVFLUSH (15:34)
[2021-04-24 15:48] VITALS: BP 128/78; PULSE 82; RESP 18; TEMP 37.2; O2SAT 98
[2021-04-24 19:44] VITALS: BP 130/73; PULSE 74; RESP 18; TEMP 36.9; O2SAT 98
[2021-04-24] MEDS: Zolpidem Tartrate 5 MG TABLET PO (23:16)
[2021-04-25] VITALS (8 sets, daily range): BP systolic 113–173; BP diastolic 63–94; PULSE 67–95; RESP 16–20; TEMP 36.6–37.6; O2SAT 97–99
[2021-04-25] MEDS: HYDROmorphone HCl 1 MG/ML SYRINGE IVPUSH ×7 (04:45→22:06)
[2021-04-25] MEDS: metroNIDAZOLE/NS 500 MG/100 ML PIGGYBACK 100 MG IV ×3 (04:45→20:17)
[2021-04-25] MEDS: Omeprazole 40 MG CAPSULE.DR PO (04:45)
[2021-04-25] MEDS: ondansetron HCL 4 MG/2 ML VIAL IVPUSH ×3 (04:50→22:06)
[2021-04-25 06:28] LABS: Hematocrit 32.9 % (37.0-47.0); Hemoglobin 10.5 g/dl (12.0-16.0); Mean Corpuscular HGB Conc 31.9 g/dl (31.0-35.0); Mean Corpuscular Hemoglobin 30.9 pg (27.0-33.0); Mean Corpuscular Volume 96.8 fL (80.0-98.0); Mean Platelet Volume 8.9 fL (9.4-12.3); Platelet Count 289 X10*3/uL (160-400); Red Cell Distribution Width 13.3 % (11.0-16.0); White Blood Count 6.2 X10*3/uL (4.8-10.8)
[2021-04-25 06:46] LABS: Anion Gap 11 (12-20); Blood Urea Nitrogen 4 mg/dL (9-16); Carbon Dioxide 27 mmol/L (22-29); Chloride 105 mmol/L (96-108); Creatinine Clr Calc Pharmacy 92.7; Estimated Glomerular Filt Rate > 60; Glucose Fasting 117 mg/dL (60-99); Potassium 3.4 mmol/L (3.3-5.1); Sodium 140 mmol/L (135-145)
[2021-04-25] MEDS: Mesalamine 400 MG CAP.DRTAB. 800 MG PO ×3 (08:29→20:13)
[2021-04-25] MEDS: clonazePAM 0.5 MG TABLET PO ×3 (08:29→20:13)
[2021-04-25] MEDS: vancomycin HCL 125 MG CAPSULE PO ×4 (08:29→20:13)
[2021-04-25] MEDS: Dicyclomine HCl 10 MG CAPSULE 20 MG PO ×4 (08:29→20:13)
[2021-04-25] MEDS: predniSONE 10 MG TABLET 30 MG PO (08:29)
--- NOTE | 2021-04-25 09:14 | HO.PM.IMPN ---
Subjective Subjective Date of Service: 04/25/21 Interval History: cc: abd pain interval history: was better yesterday then overnight had severe diffuse abd pain again with nasue and vomitting with abd distension, no appetite Cardiovascular Cardiovascular: Reports no additional cardiovascular complaints Respiratory Respiratory: Reports no additional respiratory complaints Physical Exam Vital Signs: Vital Signs: Last Vital Signs Temp 97.8 F 04/25/21 07:22 Pulse 95 04/25/21 07:22 Resp 20 04/25/21 07:22 BP 113/67 04/25/21 08:50 Pulse Ox 99 04/25/21 07:22 BMI result Body Mass Index 21.0 General: AO X 3, teary, in pain Resp: CTA bilateral, no accessory muscles used CVS: S1,S2,RRR GI: tender, distended Neuro: motor grossly intact, alert Psych: appropriate affect, appropriate insight Objective Data Active Medications Acetaminophen (Acetaminophen 325 Mg Tablet) 650 mg PO Q6H PRN PRN Reason: Pain, Mild (Pain Scale 1-3) Last Admin: 04/23/21 19:51 Dose: 650 mg Documented by: SKY Clonazepam (Clonazepam 0.5 Mg Tablet) 0.5 mg PO TID [facility] Last Admin: 04/25/21 08:29 Dose: 0.5 mg Documented by: JESSI Dicyclomine HCl (Dicyclomine Hcl 10 Mg Capsule) 20 mg PO QID [facility] Last Admin: 04/25/21 08:29 Dose: 20 mg Documented by: JESSI Enoxaparin Sodium (Enoxaparin Sodium 40 Mg/0.4 Ml Syringe) 40 mg SUBCUT DAILY [facility] Last Admin: 04/25/21 08:30 Dose: Not Given Documented by: JESSI Non-Admin Reason: pt refused,ambulates Hydromorphone HCl (Hydromorphone Hcl 1 Mg/Ml Syringe) 1 mg IVPUSH Q2H PRN; Protocol PRN Reason: moderate pain Last Admin: 04/25/21 08:27 Dose: 1 mg Documented by: JESSI Metronidazole (Flagyl) 500 mg in 100 mls @ 100 mls/hr IV Q8H [facility] Last Infusion: 04/25/21 05:46 Dose: 0 mls/hr Documented by: SKY Lactated Ringer's (Lr) 1,000 mls @ 80 mls/hr IVCONT .[id number] [facility] Last Admin: 04/24/21 20:45 Dose: 80 mls/hr Documented by: SKY Mesalamine (Mesalamine 400 Mg Cap.Drtab.) 800 mg PO TID [facility] Last Admin: 04/25/21 08:29 Dose: 800 mg Documented by: JESSI Non-Formulary Medication (Norgestimate-Ethinyl Estradiol [Estarylla]) 1 tab PO DAILY [facility] Omeprazole (Omeprazole 40 Mg Capsule.Dr) 40 mg PO DAILY@0630 [facility] Last Admin: 04/25/21 04:45 Dose: 40 mg Documented by: SKY Ondansetron HCl (Ondansetron Hcl 4 Mg/2 Ml Vial) 4 mg IVPUSH Q6H PRN PRN Reason: nausea Last Admin: 04/25/21 04:50 Dose: 4 mg Documented by: SKY Pharmacy Consult (Consult Rx Perform Med Rec) 1 each MISCELLANE ONCE PRN PRN Reason: Consult order Prednisone (Prednisone 10 Mg Tablet) 30 mg PO DAILY [facility] Last Admin: 04/25/21 08:29 Dose: 30 mg Documented by: JESSI Sodium Chloride (0.9 % Sodium Chloride Flush 3 Ml Syringe) 3 ml IVFLUSH QSHIFT [facility] Last Admin: 04/25/21 07:10 Dose: Not Given Documented by: ROLO Non-Admin Reason: IV Running Vancomycin HCl (Vancomycin Hcl 125 Mg Capsule) 125 mg PO QID [facility] Last Admin: 04/25/21 08:29 Dose: 125 mg Documented by: JESSI Zolpidem Tartrate (Zolpidem Tartrate 5 Mg Tablet) 5 mg PO BEDTIME PRN PRN Reason: Sleep Last Admin: 04/24/21 23:16 Dose: 5 mg Documented by: SKY Labs CBC & Chem 7: 04/25/21 05:56 04/25/21 05:56 Labs: Laboratory Results - last 24 hr 04/25/21 04/25/21 05:56 05:56 MCV 96.8 MCH 30.9 MCHC 31.9 RDW 13.3 Plt Count 289 MPV 8.9 L Absolute Nucleated RBC 0.000 Nucleated RBC % (auto) 0.0 Anion Gap 11 L Estim Creat Clear Calc 92.7 Estimated GFR > 60 Fasting Glucose 117 H Calcium 10.0 D Microbiology Microbiology Results: Microbiology 04/23/21 11:54 Blood Culture - Preliminary Blood - Venous No growth after 24 hours. 04/23/21 11:47 Blood Culture - Preliminary Blood - Venous No growth after 24 hours. Assessment and Plan (1) C. difficile colitis: Status: Acute Plan 45-year-old female presented with abdominal pain. Severe uncontrolled abdominal pain C diff colitis +/- IBD flare continue P.o. vancomycin (toleratine ok), giving IV Flagyl in case not tolerating p.o. IV fluids, antiemetics Continue prednisone 30mg, mesalamine IV opiates (uncontrolled with p.o. oxycodone) now with worsening symptoms, will get CT abd GI following Anxiety Clonazepam Insomnia Zolpidem as needed DVT prophylaxis with Lovenox Full code reason for continued hospitalization: still requiring iv opiates for pain control, worsening of symtpoms Quality Stroke Does the patient have a stroke diagnosis?: No VTE Prior VTE?: No VTE Risk Level:: Medical - moderate - high VTE Device Contraindication: Treatment Not Indicated VTE Drug Contraindication: N/A - Med Ordered
[2021-04-25] MEDS: Potassium Chloride ER 20 MEQ TAB.ER.PRT 40 MEQ PO (10:27)
[2021-04-25] MEDS: Lactated Ringers 1,000 ML 80 ML IVCONT ×2 (10:28→22:07)
[2021-04-25] MEDS: iohexoL 350 MG/ML 100 ML INFUS..BTL 85 ML IV (16:04)
--- NOTE | 2021-04-25 20:21 | PM.EVENT ---
Event Note Date of Service: 04/25/21 Event Note: SBO with transition point: patient being managed for c diff colitis/ ibs flare. given increased pain and increased pain medication requirement- patient had repeat ct abdomen done today which resulted sbo with transition point. on discussion with the patient-patient reports she had bowel movement this morning and also passed gas. patient reports she still has pain and has been taking iv dilaudid every 2 hours. and zofran every 6 hours. reports mild nausea but no vomiting. discussed the ct scan findings with dr. guerrero from general surgery who suggested npo, ng tube, conservative management for tonight. to scale down the pain medication. patient refused NG tube. will continue to monitor. Gi consult push button switch assembler was also notified-> suggested to continue mngt as above and will see pt in AM.
--- NOTE | 2021-04-25 20:22 | MHC.PIE ---
p; pt refusing ngt. note; pt reports i can't jean-claude anything up my nose . i; dr padgett notified e; will cont to monitor
[2021-04-25] MEDS: Zolpidem Tartrate 5 MG TABLET PO (22:53)
[2021-04-26] MEDS: HYDROmorphone HCl 1 MG/ML SYRINGE IVPUSH ×5 (03:35→21:50)
[2021-04-26] MEDS: metroNIDAZOLE/NS 500 MG/100 ML PIGGYBACK 100 MG IV ×3 (03:35→21:42)
[2021-04-26 03:47] VITALS: BP 156/73; PULSE 73; RESP 17; TEMP 36.3; O2SAT 94
[2021-04-26 05:51] LABS: Hematocrit 36.1 % (37.0-47.0); Hemoglobin 11.6 g/dl (12.0-16.0); Mean Corpuscular HGB Conc 32.1 g/dl (31.0-35.0); Mean Corpuscular Hemoglobin 30.7 pg (27.0-33.0); Mean Corpuscular Volume 95.5 fL (80.0-98.0); Mean Platelet Volume 8.9 fL (9.4-12.3); Platelet Count 330 X10*3/uL (160-400); Red Blood Count 3.78 X10*6/uL (4.20-5.50); Red Cell Distribution Width 13.2 % (11.0-16.0); White Blood Count 8.2 X10*3/uL (4.8-10.8)
[2021-04-26 06:16] LABS: Anion Gap 14 (12-20); Blood Urea Nitrogen 5 mg/dL (9-16); Calcium 8.7 mg/dL (8.4-10.2); Carbon Dioxide 26 mmol/L (22-29); Chloride 101 mmol/L (96-108); Creatinine Clr Calc Pharmacy 85.9; Estimated Glomerular Filt Rate > 60; Glucose Fasting 115 mg/dL (60-99); Potassium 3.9 mmol/L (3.3-5.1); Sodium 137 mmol/L (135-145)
[2021-04-26 07:22] VITALS: BP 177/95; PULSE 81; RESP 18; TEMP 36.6; O2SAT 98
[2021-04-26] MEDS: Dicyclomine HCl 10 MG CAPSULE 20 MG PO ×4 (08:42→21:41)
[2021-04-26] MEDS: clonazePAM 0.5 MG TABLET PO ×3 (08:42→21:42)
[2021-04-26] MEDS: vancomycin HCL 125 MG CAPSULE PO ×4 (08:43→21:42)
[2021-04-26] MEDS: Mesalamine 400 MG CAP.DRTAB. 800 MG PO ×3 (08:43→21:41)
[2021-04-26] MEDS: predniSONE 10 MG TABLET 30 MG PO (08:43)
--- NOTE | 2021-04-26 09:18 | P.CONGS_ITS ---
History of Present Illness Consult details Consult date: 04/26/21 Narrative: [age] year old female admitted to the hospital 3 days ago for abdominal pain. She has a history of laparoscopic cholecystectomy and tubal ligation and tightest and is being followed by Dr. Mejia. Been on mesalamine and steroids in the past. She describes episodes of crampy abdominal pain which she says that she has had for more for a year. However, she had a CAT scan yesterday showing what appears to be partial obstruction of the small bowel distally. She says she had an episode of severe pain that is why she was sent for a CT scan. She has had vomiting as well which was worse yesterday. She is passing flatus. She does state that she feels better today and states that she had abdominal distention yesterday which has improved as well. She does state that she still has some the abdominal pain periodically. Review of Systems Constitutional: Constitutional: Denies chills and Denies fever(s) Cardiovascular: Cardiovascular: Denies chest pain, Denies dyspnea and Denies dyspnea on exertion Respiratory: Respiratory: Denies cough, Denies dyspnea and Denies dyspnea on exertion Gastrointestinal: Gastrointestinal: Denies hematochezia, Denies change in bowel habits and Reports diarrhea Genitourinary: Genitourinary: Denies hematuria Musculoskeletal: Musculoskeletal: Denies back pain and Denies limited range of motion Neurologic: Denies focal weakness and Denies convulsions Psychiatric: Psychiatric: Reports anxiety, Denies depression and Denies mood swings PMFSH Past Medical History Medical History Anxiety Cervical cancer Cholecystectomy planned Colitis Colitis COVID-19 Radiation cystitis Family History Family History Other No family history of coronary artery disease Surgical History Surgical History Hx of elbow surgery Tubal ligation status Social History Social History Household Members: Spouse and Family Housing: House Do you presently have visiting nurse or other home services: No Alcohol intake: never Patient Tobacco Use Status: Current everyday Tobacco user Tobacco use type: Cigarette Cigarettes Per Day: 2 Years Smoked: 25 Second Hand Smoke Exposure: No Substance Use Type: Other Advance Directives Date on File: 09/10/20 service: No Current occupational status: employed Meds Allergies Allergy/AdvReac Type Severity Reaction Status Date / Time guaifenesin [GUAIFENESIN] Allergy Intermediate HIVES Verified 04/06/21 12:53 metaproterenol [From Alupent] Allergy Mild PALPITATIONS, Verified 04/06/21 12:53 RASH Active Medications: Current Medications Acetaminophen (Acetaminophen 325 Mg Tablet) 650 mg PO Q6H PRN PRN Reason: Pain, Mild (Pain Scale 1-3) Last Admin: 04/23/21 19:51 Dose: 650 mg Documented by: Clonazepam (Clonazepam 0.5 Mg Tablet) 0.5 mg PO TID [facility] Last Admin: 04/26/21 08:42 Dose: 0.5 mg Documented by: Dicyclomine HCl (Dicyclomine Hcl 10 Mg Capsule) 20 mg PO QID [facility] Last Admin: 04/26/21 08:42 Dose: 20 mg Documented by: Enoxaparin Sodium (Enoxaparin Sodium 40 Mg/0.4 Ml Syringe) 40 mg SUBCUT DAILY [facility] Last Admin: 04/26/21 08:43 Dose: Not Given Documented by: Hydromorphone HCl (Hydromorphone Hcl 1 Mg/Ml Syringe) 1 mg IVPUSH Q4H PRN; Protocol PRN Reason: moderate pain Last Admin: 04/26/21 08:45 Dose: 1 mg Documented by: Metronidazole (Flagyl) 500 mg in 100 mls @ 100 mls/hr IV Q8H [facility] Last Infusion: 04/26/21 04:46 Dose: Infused Documented by: Lactated Ringer's (Lr) 1,000 mls @ 80 mls/hr IVCONT .[id number] [facility] Last Admin: 04/25/21 22:07 Dose: 80 mls/hr Documented by: Mesalamine (Mesalamine 400 Mg Cap.Drtab.) 800 mg PO TID [facility] Last Admin: 04/26/21 08:43 Dose: 800 mg Documented by: Non-Formulary Medication (Norgestimate-Ethinyl Estradiol [Estarylla]) 1 tab PO DAILY [facility] Omeprazole (Omeprazole 40 Mg Capsule.Dr) 40 mg PO DAILY@0630 [facility] Last Admin: 04/26/21 03:49 Dose: Not Given Documented by: Ondansetron HCl (Ondansetron Hcl 4 Mg/2 Ml Vial) 4 mg IVPUSH Q6H PRN PRN Reason: nausea Last Admin: 04/25/21 22:06 Dose: 4 mg Documented by: Pharmacy Consult (Consult Rx Perform Med Rec) 1 each MISCELLANE ONCE PRN PRN Reason: Consult order Prednisone (Prednisone 10 Mg Tablet) 30 mg PO DAILY [facility] Last Admin: 04/26/21 08:43 Dose: 30 mg Documented by: Sodium Chloride (0.9 % Sodium Chloride Flush 3 Ml Syringe) [facility] Last Admin: 04/26/21 08:42 Dose: Not Given Documented by: Vancomycin HCl (Vancomycin Hcl 125 Mg Capsule) 125 mg PO QID [facility] Last Admin: 04/26/21 08:43 Dose: 125 mg Documented by: Zolpidem Tartrate (Zolpidem Tartrate 5 Mg Tablet) 5 mg PO BEDTIME PRN PRN Reason: Sleep Last Admin: 04/25/21 22:53 Dose: 5 mg Documented by: Home Medications Medication Instructions Recorded Confirmed Last Taken Type clonazepam 0.5 mg tablet 0.5 mg PO TID 09/09/20 04/23/21 01/04/21 History norgestimate 0.25 mg-ethinyl 1 tab PO DAILY 09/09/20 04/23/21 01/04/21 History estradiol 35 mcg tablet (Estarylla) oxycodone 5 mg tablet 1 tab PO TID PRN 09/09/20 04/23/21 01/04/21 History zolpidem 12.5 mg tablet,extended 1 tab PO BEDTIME PRN 09/09/20 04/23/21 01/03/21 History release,multiphase dicyclomine 20 mg tablet 20 mg PO QID 04/06/21 04/23/21 Unknown History mesalamine 400 mg capsule (with 2 cap PO TID 04/06/21 04/23/21 Unknown History delayed release tablets inside) (Delzicol) omeprazole 40 mg capsule,delayed 1 cap PO QAM 04/23/21 04/23/21 Unknown History release ondansetron 4 mg disintegrating 1 tab PO DAILY 04/23/21 04/23/21 Unknown History tablet prednisone 10 mg tablet 30 mg PO DAILY 04/23/21 04/23/21 Unknown History Physical Exam Vital Signs: Vital Signs: Last Vital Signs Temp 97.9 F 04/26/21 07:22 Pulse 81 04/26/21 07:22 Resp 18 04/26/21 07:22 BP 177/95 H 04/26/21 07:22 Pulse Ox 98 04/26/21 07:22 BMI result Body Mass Index 21.0 Const: General: comfortable and no acute distress Orientation/ consciousness: patient oriented x3 Neck: Neck: Yes no lymphadenopathy Resp: Auscultation: clear to auscultation bilaterally Cardio: Rhythm: regular rhythm GI: Other: Abdomen distended but soft, no guarding, mild diffuse tenderness, no rebound, no palpable masses Palpation (GI): Soft to palpation, nontender and no guarding Neuro: General: patient oriented x3 Results Labs Result diagrams: 04/27/21 05:31 04/27/21 05:31 Labs: Abnormal lab results 04/26/21 04/26/21 Range/Units 05:18 05:18 RBC 3.78 L (4.20-5.50) X10*6/uL Hgb 11.6 L (12.0-16.0) g/dl Hct 36.1 L (37.0-47.0) % MPV 8.9 L (9.4-12.3) fL BUN 5 L (9-16) mg/dL Fasting Glucose 115 H (60-99) mg/dL Short CBC 04/26/21 Range/Units 05:18 WBC 8.2 (4.8-10.8) X10*3/uL Hgb 11.6 L (12.0-16.0) g/dl Hct 36.1 L (37.0-47.0) % Plt Count 330 (160-400) X10*3/uL BMP 04/26/21 05:18 Sodium 137 Potassium 3.9 Chloride 101 Carbon Dioxide 26 BUN 5 L Creatinine 0.67 Calcium 8.7 D Urine 04/23/21 Range/Units 13:03 Urine Color YELLOW Urine Appearance CLEAR Urine pH 7.0 (5.0-8.0) Ur Specific [place] 1.015 (1.005-1.025) Urine Protein NEG (NEG-TRACE) MG/DL Urine Glucose (UA) NEG (NEG) MG/DL All other labs normal. Imaging Abdomen CT scan report/results: report reviewed and image reviewed CT scan - pelvis: report reviewed and image reviewed Assessment and Plan (1) Abdominal pain: Status: Acute [age] year old female admitted for abdominal pain. She had a CAT scan done yesterday which suggest partial high-grade obstruction in the distal small bowel. She does state that she feels much better morning. Her abdomen remained soft and very benign. She is minimally distended. She is passing flatus as well. I did explain to her that NG tube placement would help with her vomiting. However, she says he has severe anxiety and will not be able to tolerate this. She has refused this last night as well. In view of her clinical improvement, we can hold off on any tube for now. She should be kept NPO although she can have some ice chips. I have encouraged her to ambulate will follow along closely while she is in the hospital. She has history of colitis as well and Dr. Mejia has been consulted for this. Procedures Date of Service Date of Service: 04/26/21
--- NOTE | 2021-04-26 09:53 | HO.PM.IMPN ---
Subjective Subjective Date of Service: 04/26/21 Interval History: cc: nicole garner interval history: CT showed SBO, patient still vomitting, feels less distended and is passing stool and gas, refuses ngt. still having pain Cardiovascular Cardiovascular: Reports no additional cardiovascular complaints Respiratory Respiratory: Reports no additional respiratory complaints Physical Exam Vital Signs: Vital Signs: Last Vital Signs Temp 97.9 F 04/26/21 07:22 Pulse 81 04/26/21 07:22 Resp 18 04/26/21 07:22 BP 177/95 H 04/26/21 07:22 Pulse Ox 98 04/26/21 07:22 BMI result Body Mass Index 21.0 General: AO X 3, in some distress Resp: CTA bilateral, no accessory muscles used CVS: S1,S2,RRR GI: soft, tender, mildly distended Neuro: motor grossly intact, alert Psych: appropriate affect, appropriate insight Objective Data Active Medications Acetaminophen (Acetaminophen 325 Mg Tablet) 650 mg PO Q6H PRN PRN Reason: Pain, Mild (Pain Scale 1-3) Last Admin: 04/23/21 19:51 Dose: 650 mg Documented by: SKY Clonazepam (Clonazepam 0.5 Mg Tablet) 0.5 mg PO TID [facility] Last Admin: 04/26/21 08:42 Dose: 0.5 mg Documented by: ALVARO Dicyclomine HCl (Dicyclomine Hcl 10 Mg Capsule) 20 mg PO QID [facility] Last Admin: 04/26/21 08:42 Dose: 20 mg Documented by: ALVARO Enoxaparin Sodium (Enoxaparin Sodium 40 Mg/0.4 Ml Syringe) 40 mg SUBCUT DAILY [facility] Last Admin: 04/26/21 08:43 Dose: Not Given Documented by: ALVARO Non-Admin Reason: Patient Refused Hydromorphone HCl (Hydromorphone Hcl 1 Mg/Ml Syringe) 1 mg IVPUSH Q4H PRN; Protocol PRN Reason: moderate pain Last Admin: 04/26/21 08:45 Dose: 1 mg Documented by: ALVARO Metronidazole (Flagyl) 500 mg in 100 mls @ 100 mls/hr IV Q8H [facility] Last Infusion: 04/26/21 04:46 Dose: 0 mls/hr Documented by: BETTIE Lactated Ringer's (Lr) 1,000 mls @ 80 mls/hr IVCONT .[id number] [facility] Last Admin: 04/25/21 22:07 Dose: 80 mls/hr Documented by: BETTIE Mesalamine (Mesalamine 400 Mg Cap.Drtab.) 800 mg PO TID [facility] Last Admin: 04/26/21 08:43 Dose: 800 mg Documented by: ALVARO Non-Formulary Medication (Norgestimate-Ethinyl Estradiol [Estarylla]) 1 tab PO DAILY [facility] Omeprazole (Omeprazole 40 Mg Capsule.Dr) 40 mg PO DAILY@0630 [facility] Last Admin: 04/26/21 03:49 Dose: Not Given Documented by: BETTIE Non-Admin Reason: NPO Ondansetron HCl (Ondansetron Hcl 4 Mg/2 Ml Vial) 4 mg IVPUSH Q6H PRN PRN Reason: nausea Last Admin: 04/25/21 22:06 Dose: 4 mg Documented by: BETTIE Pharmacy Consult (Consult Rx Perform Med Rec) 1 each MISCELLANE ONCE PRN PRN Reason: Consult order Prednisone (Prednisone 10 Mg Tablet) 30 mg PO DAILY [facility] Last Admin: 04/26/21 08:43 Dose: 30 mg Documented by: ALVARO Sodium Chloride (0.9 % Sodium Chloride Flush 3 Ml Syringe) 3 ml IVFLUSH QSHIFT [facility] Last Admin: 04/26/21 08:42 Dose: Not Given Documented by: ALVARO Non-Admin Reason: IV Running Vancomycin HCl (Vancomycin Hcl 125 Mg Capsule) 125 mg PO QID [facility] Last Admin: 04/26/21 08:43 Dose: 125 mg Documented by: ALVARO Zolpidem Tartrate (Zolpidem Tartrate 5 Mg Tablet) 5 mg PO BEDTIME PRN PRN Reason: Sleep Last Admin: 04/25/21 22:53 Dose: 5 mg Documented by: BETTIE Labs CBC & Chem 7: 04/26/21 05:18 04/26/21 05:18 Labs: Laboratory Results - last 24 hr 04/26/21 04/26/21 05:18 05:18 MCV 95.5 MCH 30.7 MCHC 32.1 RDW 13.2 Plt Count 330 MPV 8.9 L Absolute Nucleated RBC 0.000 Nucleated RBC % (auto) 0.0 Anion Gap 14 Estim Creat Clear Calc 85.9 Estimated GFR > 60 Fasting Glucose 115 H Calcium 8.7 D Microbiology Microbiology Results: Microbiology 04/23/21 11:54 Blood Culture - Preliminary Blood - Venous No growth after 48 hours. 04/23/21 11:47 Blood Culture - Preliminary Blood - Venous No growth after 48 hours. Assessment and Plan (1) C. difficile colitis: Status: Acute Plan 45-year-old female presented with abdominal pain. Severe uncontrolled abdominal pain C diff colitis +/- IBD flare + SBO continue P.o. vancomycin , giving IV Flagyl in case not tolerating p.o. IV fluids, antiemetics refusing NGT surgery eval Continue prednisone 30mg, mesalamine IV opiates (uncontrolled with p.o. oxycodone) GI following Anxiety Clonazepam Insomnia Zolpidem as needed DVT prophylaxis with Lovenox Full code reason for continued hospitalization: SBO, not tolerating po Quality Stroke Does the patient have a stroke diagnosis?: No VTE Prior VTE?: No VTE Risk Level:: Medical - moderate - high VTE Device Contraindication: Treatment Not Indicated VTE Drug Contraindication: N/A - Med Ordered
[2021-04-26 11:13] VITALS: BP 129/75; PULSE 71; RESP 18; TEMP 36.3; O2SAT 99
[2021-04-26] MEDS: Lactated Ringers 1,000 ML 80 ML IVCONT ×2 (12:10→21:45)
--- NOTE | 2021-04-26 13:58 | MHC.CLN ---
NUTRITION CONSULT FOR WEIGHT LOSS. PATIENT STATED WEIGHT LOSS IN PAST FEW MONTHS FROM 120# TO 104#. CURRENT WEIGHT 04/23=54 KG, 119#. REVIEW OF WEIGHT HX DOES NOT SUPPORT SIGNIFICANT WEIGHT LOSS. CURRENTLY NPO. HAS C-DIFF WITH ABDOMINAL PAIN AND ATTRIBUTES WEIGHT LOSS TO GI CONCERNS. MAKES OWN SMOOTHIES/SHAKES AT HOME. DOES NOT WANT ENSURE ENLIVE DURING ADMISSION. WILL TRY ENSURE CLEAR WHEN DIET RESUMES.
--- NOTE | 2021-04-26 14:37 | MHC.CM.PN ---
EMR REVIEWED, PT REFUSING NG TUBE D/T ANXIETY AND NOT FEELING SHE WILL BE ABLE TO TOLERATE, PT WILL REMAIN ON NPO, HAS BOWEL FX, CONT'S TO NEED IV PAIN MEDS, NO PLAN FOR D/C TODAY, ANTIC PT WILL D/C HOME NO SERVICES ONCE MEDICALLY CLEARED.
[2021-04-26 15:25] VITALS: BP 111/75; PULSE 66; RESP 20; TEMP 37.2; O2SAT 97
--- NOTE | 2021-04-26 16:16 | P.PNGI_ITS ---
Subjective Subjective Date of Service: 04/26/21 Interval History: patient reports vomiting last this am Critical Care Time (minutes): 0 Physical Exam Vital Signs: Vital Signs: Last Vital Signs Temp 99.0 F 04/26/21 15:25 Pulse 66 04/26/21 15:25 Resp 20 04/26/21 15:25 BP 111/75 04/26/21 15:25 Pulse Ox 97 04/26/21 15:25 BMI result Body Mass Index 21.0 GI: Other: abdomen is distended and nontender with frequent bowel sounds. Objective Data Labs CBC & Chem 7: 04/26/21 05:18 04/26/21 05:18 Microbiology Microbiology Results: Microbiology 04/23/21 11:54 Blood - Venous Blood Culture - Preliminary No growth after 48 hours. 04/23/21 11:47 Blood - Venous Blood Culture - Preliminary No growth after 48 hours. Procedures Date of Service Date of Service: 04/26/21 Progress Note: A&P Assessment and plan (1) C. difficile colitis: Status: Acute Assessment and Plan: CT scans reviewed with Dr Dickey Since February, she has developed an obstructive pattern with a transition zone in the RLQ. This is in the area where she received RT for cervical cancer and is likely related to this. It would be very unusual for IBD to develop this picture in such a short time. Plan Change to iv solumedrol due to n/v check abd xray in am. Fall Risk Details Current Medications: Current Medications Acetaminophen (Acetaminophen 325 Mg Tablet) 650 mg PO Q6H PRN PRN Reason: Pain, Mild (Pain Scale 1-3) Last Admin: 04/23/21 19:51 Dose: 650 mg Documented by: Clonazepam (Clonazepam 0.5 Mg Tablet) 0.5 mg PO TID [facility] Last Admin: 04/26/21 15:03 Dose: 0.5 mg Documented by: Dicyclomine HCl (Dicyclomine Hcl 10 Mg Capsule) 20 mg PO QID [facility] Last Admin: 04/26/21 12:07 Dose: 20 mg Documented by: Enoxaparin Sodium (Enoxaparin Sodium 40 Mg/0.4 Ml Syringe) 40 mg SUBCUT DAILY S Last Admin: 04/26/21 08:43 Dose: Not Given Documented by: Hydromorphone HCl (Hydromorphone Hcl 1 Mg/Ml Syringe) 1 mg IVPUSH Q4H PRN; Protocol PRN Reason: moderate pain Last Admin: 04/26/21 13:06 Dose: 1 mg Documented by: Metronidazole (Flagyl) 500 mg in 100 mls @ 100 mls/hr IV Q8H [facility] Last Infusion: 04/26/21 13:08 Dose: Infused Documented by: Lactated Ringer's (Lr) 1,000 mls @ 80 mls/hr IVCONT .[id number] [facility] Last Admin: 04/26/21 12:10 Dose: 80 mls/hr Documented by: Mesalamine (Mesalamine 400 Mg Cap.Drtab.) 800 mg PO TID [facility] Last Admin: 04/26/21 15:03 Dose: 800 mg Documented by: Non-Formulary Medication (Norgestimate-Ethinyl Estradiol [Estarylla]) 1 tab PO DAILY [facility] Omeprazole (Omeprazole 40 Mg Capsule.Dr) 40 mg PO DAILY@0630 [facility] Last Admin: 04/26/21 03:49 Dose: Not Given Documented by: Ondansetron HCl (Ondansetron Hcl 4 Mg/2 Ml Vial) 4 mg IVPUSH Q6H PRN PRN Reason: nausea Last Admin: 04/25/21 22:06 Dose: 4 mg Documented by: Pharmacy Consult (Consult Rx Perform Med Rec) 1 each MISCELLANE ONCE PRN PRN Reason: Consult order Prednisone (Prednisone 10 Mg Tablet) 30 mg PO DAILY [facility] Last Admin: 04/26/21 08:43 Dose: 30 mg Documented by: Sodium Chloride (0.9 % Sodium Chloride Flush 3 Ml Syringe) 3 ml IVFLUSH QSHIFT [facility] Last Admin: 04/26/21 15:04 Dose: Not Given Documented by: Vancomycin HCl (Vancomycin Hcl 125 Mg Capsule) 125 mg PO QID [facility] Last Admin: 04/26/21 12:08 Dose: 125 mg Documented by: Zolpidem Tartrate (Zolpidem Tartrate 5 Mg Tablet) 5 mg PO BEDTIME PRN PRN Reason: Sleep Last Admin: 04/25/21 22:53 Dose: 5 mg Documented by: Time Spent With Patient Time: Total time spent is greater than 50% in coordination of care (as documented) at patient's floor/unit and/or counseling patient: Time with patient: 15 - 24 minutes Quality Stroke Does the patient have a stroke diagnosis?: No VTE Prior VTE?: No VTE Risk Level:: Medical - moderate - high VTE Device Contraindication: Treatment Not Indicated VTE Drug Contraindication: N/A - Med Ordered
[2021-04-26 19:14] VITALS: BP 140/83; PULSE 70; RESP 18; TEMP 37.1; O2SAT 98
[2021-04-26] MEDS: Zolpidem Tartrate 5 MG TABLET PO (21:47)
[2021-04-26] MEDS: 0.9 % Sodium Chloride Flush 3 ML SYRINGE IVFLUSH (21:50)
[2021-04-26 23:23] VITALS: BP 134/73; PULSE 53; RESP 17; TEMP 36.4; O2SAT 96
[2021-04-27 03:58] VITALS: BP 149/72; PULSE 67; RESP 17; TEMP 36.8; O2SAT 95
[2021-04-27] MEDS: metroNIDAZOLE/NS 500 MG/100 ML PIGGYBACK 100 MG IV ×3 (04:06→20:18)
[2021-04-27] MEDS: HYDROmorphone HCl 1 MG/ML SYRINGE IVPUSH ×6 (04:06→23:06)
[2021-04-27 05:38] LABS: Hematocrit 31.9 % (37.0-47.0); Hemoglobin 10.4 g/dl (12.0-16.0); Mean Corpuscular HGB Conc 32.6 g/dl (31.0-35.0); Mean Corpuscular Hemoglobin 31.3 pg (27.0-33.0); Mean Corpuscular Volume 96.1 fL (80.0-98.0); Mean Platelet Volume 8.5 fL (9.4-12.3); Platelet Count 274 X10*3/uL (160-400); Red Blood Count 3.32 X10*6/uL (4.20-5.50); Red Cell Distribution Width 13.3 % (11.0-16.0); White Blood Count 4.8 X10*3/uL (4.8-10.8)
[2021-04-27 06:02] LABS: Anion Gap 12 (12-20); Blood Urea Nitrogen 9 mg/dL (9-16); Calcium 8.5 mg/dL (8.4-10.2); Carbon Dioxide 28 mmol/L (22-29); Chloride 104 mmol/L (96-108); Creatinine Clr Calc Pharmacy 88.5; Estimated Glomerular Filt Rate > 60; Glucose Fasting 89 mg/dL (60-99); Potassium 3.9 mmol/L (3.3-5.1); Sodium 140 mmol/L (135-145)
[2021-04-27] MEDS: Dicyclomine HCl 10 MG CAPSULE 20 MG PO ×4 (07:24→20:46)
[2021-04-27] MEDS: Mesalamine 400 MG CAP.DRTAB. 800 MG PO ×3 (07:24→20:46)
[2021-04-27] MEDS: vancomycin HCL 125 MG CAPSULE PO ×4 (07:25→20:18)
[2021-04-27] MEDS: methylPREDNISolone Sod Succ 125 MG/2 ML VIAL 60 MG IV (07:25)
[2021-04-27] MEDS: Omeprazole 40 MG CAPSULE.DR PO (07:25)
[2021-04-27] MEDS: clonazePAM 0.5 MG TABLET PO ×3 (07:25→20:47)
[2021-04-27 08:00] VITALS: BP 161/98; PULSE 74; RESP 16; TEMP 36.1; O2SAT 99
--- NOTE | 2021-04-27 10:09 | P.PNIM_ITS ---
Subjective Subjective Date of Service: 04/27/21 Interval History: cc: abd pain interval history: slightly improved today, still with pain, needing iv pain meds Cardiovascular Cardiovascular: Reports no additional cardiovascular complaints Respiratory Respiratory: Reports no additional respiratory complaints Physical Exam Vital Signs: Vital Signs: Last Vital Signs Temp 97.0 F 04/27/21 08:00 Pulse 74 04/27/21 08:00 Resp 16 04/27/21 08:00 BP 161/98 H 04/27/21 08:00 Pulse Ox 99 04/27/21 08:00 BMI result Body Mass Index 21.0 General: AO X 3, in some distress Resp:? CTA bilateral, no accessory muscles used CVS: S1,S2,RRR GI: soft,? tender, mildly distended Neuro:? motor grossly intact, alert Psych: appropriate affect, appropriate insight? Objective Data Active Medications Acetaminophen (Acetaminophen 325 Mg Tablet) 650 mg PO Q6H PRN PRN Reason: Pain, Mild (Pain Scale 1-3) Last Admin: 04/23/21 19:51 Dose: 650 mg Documented by: SKY Clonazepam (Clonazepam 0.5 Mg Tablet) 0.5 mg PO TID [facility] Last Admin: 04/27/21 07:25 Dose: 0.5 mg Documented by: HANNAH Dicyclomine HCl (Dicyclomine Hcl 10 Mg Capsule) 20 mg PO QID [facility] Last Admin: 04/27/21 07:24 Dose: 20 mg Documented by: HANNAH Enoxaparin Sodium (Enoxaparin Sodium 40 Mg/0.4 Ml Syringe) 40 mg SUBCUT DAILY [facility] Last Admin: 04/27/21 07:23 Dose: Not Given Documented by: HANNAH Non-Admin Reason: Patient Refused Hydromorphone HCl (Hydromorphone Hcl 1 Mg/Ml Syringe) 1 mg IVPUSH Q4H PRN; Protocol PRN Reason: moderate pain Last Admin: 04/27/21 08:10 Dose: 1 mg Documented by: KIA Metronidazole (Flagyl) 500 mg in 100 mls @ 100 mls/hr IV Q8H [facility] Last Infusion: 04/27/21 05:20 Dose: 0 mls/hr Documented by: IBRAHIMA Lactated Ringer's (Lr) 1,000 mls @ 80 mls/hr IVCONT .[id number] [facility] Last Admin: 04/26/21 21:45 Dose: 80 mls/hr Documented by: IBRAHIMA Mesalamine (Mesalamine 400 Mg Cap.Drtab.) 800 mg PO TID [facility] Last Admin: 04/27/21 07:24 Dose: 800 mg Documented by: HANNAH Methylprednisolone Sodium Succinate (Methylprednisolone Sod Succ 125 Mg/2 Ml Vial) 60 mg IV DAILY [facility] Last Admin: 04/27/21 07:25 Dose: 60 mg Documented by: HANNAH Non-Formulary Medication (Norgestimate-Ethinyl Estradiol [Estarylla]) 1 tab PO DAILY [facility] Omeprazole (Omeprazole 40 Mg Capsule.Dr) 40 mg PO DAILY@0630 [facility] Last Admin: 04/27/21 07:25 Dose: 40 mg Documented by: HANNAH Ondansetron HCl (Ondansetron Hcl 4 Mg/2 Ml Vial) 4 mg IVPUSH Q6H PRN PRN Reason: nausea Last Admin: 04/25/21 22:06 Dose: 4 mg Documented by: BETTIE Pharmacy Consult (Consult Rx Perform Med Rec) 1 each MISCELLANE ONCE PRN PRN Reason: Consult order Sodium Chloride (0.9 % Sodium Chloride Flush 3 Ml Syringe) 3 ml IVFLUSH QSHIFT [facility] Last Admin: 04/27/21 07:50 Dose: Not Given Documented by: KIA Non-Admin Reason: IV Running Vancomycin HCl (Vancomycin Hcl 125 Mg Capsule) 125 mg PO QID [facility] Last Admin: 04/27/21 07:25 Dose: 125 mg Documented by: HANNAH Zolpidem Tartrate (Zolpidem Tartrate 5 Mg Tablet) 5 mg PO BEDTIME PRN PRN Reason: Sleep Last Admin: 04/26/21 21:47 Dose: 5 mg Documented by: IBRAHIMA Labs CBC & Chem 7: 04/27/21 05:31 04/27/21 05:31 Labs: Laboratory Results - last 24 hr 04/27/21 04/27/21 05:31 05:31 MCV 96.1 MCH 31.3 MCHC 32.6 RDW 13.3 Plt Count 274 MPV 8.5 L Absolute Nucleated RBC 0.000 Nucleated RBC % (auto) 0.0 Anion Gap 12 Estim Creat Clear Calc 88.5 Estimated GFR > 60 Fasting Glucose 89 Calcium 8.5 Assessment and Plan (1) C. difficile colitis: Status: Acute Plan 45-year-old female presented with abdominal pain. uncontrolled abdominal pain C diff colitis + SBO location of SBO favoring etiology of Radiation rather than IBD continue P.o. vancomycin , giving IV Flagyl in case not tolerating p.o. prednisone changed to iv solumedrol IV fluids, antiemetics refusing NGT surgery appreciated advanced to clear liquids IV opiates (uncontrolled with p.o. oxycodone) GI following Anxiety Clonazepam Insomnia Zolpidem as needed DVT prophylaxis with Lovenox Full code reason for continued hospitalization: SBO, reuiqirng iv pain meds Quality Stroke Does the patient have a stroke diagnosis?: No VTE Prior VTE?: No VTE Risk Level:: Medical - moderate - high VTE Device Contraindication: Treatment Not Indicated VTE Drug Contraindication: N/A - Med Ordered
[2021-04-27 11:57] VITALS: BP 132/79; PULSE 75; RESP 17; TEMP 36.7; O2SAT 97
--- NOTE | 2021-04-27 14:29 | P.PNGS_ITS ---
Subjective Subjective Date of Service: 04/27/21 Interval history: some abdominal bloating has had no nausea or vomitting she wanted to advance her diet today Physical Exam Vital Signs: Vital Signs: Last Vital Signs Temp 98.0 F 04/27/21 11:57 Pulse 75 04/27/21 11:57 Resp 17 04/27/21 11:57 BP 132/79 04/27/21 11:57 Pulse Ox 97 04/27/21 11:57 BMI result Body Mass Index 21.0 Const: General: comfortable, no acute distress and well developed Resp: Effort & Inspection: normal respiratory effort Cardio: Rate: regular rate GI: Other: mildly distended Palpation (GI): Soft to palpation, not firm and nontender Extrem: General: No edema Objective Data Active Medications Acetaminophen (Acetaminophen 325 Mg Tablet) 650 mg PO Q6H PRN PRN Reason: Pain, Mild (Pain Scale 1-3) Last Admin: 04/23/21 19:51 Dose: 650 mg Documented by: SKY Clonazepam (Clonazepam 0.5 Mg Tablet) 0.5 mg PO TID [facility] Last Admin: 04/27/21 07:25 Dose: 0.5 mg Documented by: HANNAH Dicyclomine HCl (Dicyclomine Hcl 10 Mg Capsule) 20 mg PO QID [facility] Last Admin: 04/27/21 13:40 Dose: 20 mg Documented by: KIA Enoxaparin Sodium (Enoxaparin Sodium 40 Mg/0.4 Ml Syringe) 40 mg SUBCUT DAILY [facility] Last Admin: 04/27/21 07:23 Dose: Not Given Documented by: HANNAH Non-Admin Reason: Patient Refused Hydromorphone HCl (Hydromorphone Hcl 1 Mg/Ml Syringe) 1 mg IVPUSH Q4H PRN; Protocol PRN Reason: moderate pain Last Admin: 04/27/21 13:40 Dose: 1 mg Documented by: KIA Metronidazole (Flagyl) 500 mg in 100 mls @ 100 mls/hr IV Q8H [facility] Last Admin: 04/27/21 13:40 Dose: 100 mls/hr Documented by: KIA Lactated Ringer's (Lr) 1,000 mls @ 80 mls/hr IVCONT .[id number] [facility] Last Infusion: 04/27/21 10:23 Dose: 0 mls/hr Documented by: KIA Mesalamine (Mesalamine 400 Mg Cap.Drtab.) 800 mg PO TID [facility] Last Admin: 04/27/21 07:24 Dose: 800 mg Documented by: HANNAH Methylprednisolone Sodium Succinate (Methylprednisolone Sod Succ 125 Mg/2 Ml Vial) 60 mg IV DAILY [facility] Last Admin: 04/27/21 07:25 Dose: 60 mg Documented by: HANNAH Non-Formulary Medication (Norgestimate-Ethinyl Estradiol [Estarylla]) 1 tab PO DAILY [facility] Omeprazole (Omeprazole 40 Mg Capsule.Dr) 40 mg PO DAILY@0630 [facility] Last Admin: 04/27/21 07:25 Dose: 40 mg Documented by: HANNAH Ondansetron HCl (Ondansetron Hcl 4 Mg/2 Ml Vial) 4 mg IVPUSH Q6H PRN PRN Reason: nausea Last Admin: 04/25/21 22:06 Dose: 4 mg Documented by: BETTIE Pharmacy Consult (Consult Rx Perform Med Rec) 1 each MISCELLANE ONCE PRN PRN Reason: Consult order Sodium Chloride (0.9 % Sodium Chloride Flush 3 Ml Syringe) 3 ml IVFLUSH QSHIFT [facility] Last Admin: 04/27/21 07:50 Dose: Not Given Documented by: KIA Non-Admin Reason: IV Running Vancomycin HCl (Vancomycin Hcl 125 Mg Capsule) 125 mg PO QID [facility] Last Admin: 04/27/21 13:40 Dose: 125 mg Documented by: KIA Zolpidem Tartrate (Zolpidem Tartrate 5 Mg Tablet) 5 mg PO BEDTIME PRN PRN Reason: Sleep Last Admin: 04/26/21 21:47 Dose: 5 mg Documented by: JAYNEQC Labs CBC & Chem 7: 04/27/21 05:31 04/27/21 05:31 Labs: Laboratory Results - last 24 hr 04/27/21 04/27/21 05:31 05:31 MCV 96.1 MCH 31.3 MCHC 32.6 RDW 13.3 Plt Count 274 MPV 8.5 L Absolute Nucleated RBC 0.000 Nucleated RBC % (auto) 0.0 Anion Gap 12 Estim Creat Clear Calc 88.5 Estimated GFR > 60 Fasting Glucose 89 Calcium 8.5 Procedures Date of Service Date of Service: 04/27/21 Progress Note: A&P Assessment and plan (1) Abdominal pain: Status: Acute Assessment and Plan: I have reviewed her imaging studies with Dr. Noble PERSAUDBO in distal ileum in the low pelvis - likely secondary to radiation for her cervical cancer I have put her on a trial of clear liquids I explained to her that if she does not get better, she may need laparotomy and resection she otherwise has a benign exam at this time will continue to follow closely Fall Risk Details Current Medications: Current Medications Acetaminophen (Acetaminophen 325 Mg Tablet) 650 mg PO Q6H PRN PRN Reason: Pain, Mild (Pain Scale 1-3) Last Admin: 04/23/21 19:51 Dose: 650 mg Documented by: Clonazepam (Clonazepam 0.5 Mg Tablet) 0.5 mg PO TID [facility] Last Admin: 04/27/21 07:25 Dose: 0.5 mg Documented by: Dicyclomine HCl (Dicyclomine Hcl 10 Mg Capsule) 20 mg PO QID [facility] Last Admin: 04/27/21 13:40 Dose: 20 mg Documented by: Enoxaparin Sodium (Enoxaparin Sodium 40 Mg/0.4 Ml Syringe) 40 mg SUBCUT DAILY [facility] Last Admin: 04/27/21 07:23 Dose: Not Given Documented by: Hydromorphone HCl (Hydromorphone Hcl 1 Mg/Ml Syringe) 1 mg IVPUSH Q4H PRN; Protocol PRN Reason: moderate pain Last Admin: 04/27/21 13:40 Dose: 1 mg Documented by: Metronidazole (Flagyl) 500 mg in 100 mls @ 100 mls/hr IV Q8H [facility] Last Admin: 04/27/21 13:40 Dose: 100 mls/hr Documented by: Lactated Ringer's (Lr) 1,000 mls @ 80 mls/hr IVCONT .[id number] [facility] Last Infusion: 04/27/21 10:23 Dose: Infused Documented by: Mesalamine (Mesalamine 400 Mg Cap.Drtab.) 800 mg PO TID [facility] Last Admin: 04/27/21 07:24 Dose: 800 mg Documented by: Methylprednisolone Sodium Succinate (Methylprednisolone Sod Succ 125 Mg/2 Ml Vial) 60 mg IV DAILY [facility] Last Admin: 04/27/21 07:25 Dose: 60 mg Documented by: Non-Formulary Medication (Norgestimate-Ethinyl Estradiol [Estarylla]) 1 tab PO DAILY [facility] Omeprazole (Omeprazole 40 Mg Capsule.Dr) 40 mg PO DAILY@0630 [facility] Last Admin: 04/27/21 07:25 Dose: 40 mg Documented by: Ondansetron HCl (Ondansetron Hcl 4 Mg/2 Ml Vial) 4 mg IVPUSH Q6H PRN PRN Reason: nausea Last Admin: 04/25/21 22:06 Dose: 4 mg Documented by: Pharmacy Consult (Consult Rx Perform Med Rec) 1 each MISCELLANE ONCE PRN PRN Reason: Consult order Sodium Chloride (0.9 % Sodium Chloride Flush 3 Ml Syringe) 3 ml IVFLUSH QSHIFT [facility] Last Admin: 04/27/21 07:50 Dose: Not Given Documented by: Vancomycin HCl (Vancomycin Hcl 125 Mg Capsule) 125 mg PO QID [facility] Last Admin: 04/27/21 13:40 Dose: 125 mg Documented by: Zolpidem Tartrate (Zolpidem Tartrate 5 Mg Tablet) 5 mg PO BEDTIME PRN PRN Reason: Sleep Last Admin: 04/26/21 21:47 Dose: 5 mg Documented by: Time Spent With Patient Time: Total time spent is greater than 50% in coordination of care (as documented) at patient's floor/unit and/or counseling patient: Time with patient: 15 - 24 minutes Quality Stroke Does the patient have a stroke diagnosis?: No VTE Prior VTE?: No VTE Risk Level:: Medical - moderate - high VTE Device Contraindication: Treatment Not Indicated VTE Drug Contraindication: N/A - Med Ordered
[2021-04-27 15:43] VITALS: BP 144/76; PULSE 65; RESP 18; TEMP 36.3; O2SAT 99
[2021-04-27] MEDS: Lactated Ringers 1,000 ML 80 ML IVCONT (17:30)
[2021-04-27 20:00] VITALS: BP 170/76; PULSE 85; RESP 18; TEMP 36.9; O2SAT 99
[2021-04-27] MEDS: ondansetron HCL 4 MG/2 ML VIAL IVPUSH (20:18)
[2021-04-27] MEDS: 0.9 % Sodium Chloride Flush 3 ML SYRINGE IVFLUSH (20:19)
[2021-04-27] MEDS: Zolpidem Tartrate 5 MG TABLET PO (20:47)
[2021-04-27 23:39] VITALS: BP 136/80; PULSE 65; RESP 18; TEMP 36.4; O2SAT 98
[2021-04-28] VITALS (20 sets, daily range): BP systolic 152–186; BP diastolic 70–95; PULSE 64–84; RESP 12–18; TEMP 36.3–37.2; O2SAT 98–100
[2021-04-28] MEDS: HYDROmorphone HCl 1 MG/ML SYRINGE IVPUSH ×6 (03:38→23:42)
[2021-04-28] MEDS: ondansetron HCL 4 MG/2 ML VIAL IVPUSH ×2 (03:42→15:39)
[2021-04-28] MEDS: Lactated Ringers 1,000 ML 80 ML IVCONT ×2 (03:42→18:25)
[2021-04-28] MEDS: metroNIDAZOLE/NS 500 MG/100 ML PIGGYBACK 100 MG IV ×2 (05:07→21:34)
[2021-04-28 06:16] LABS: Hematocrit 39.5 % (37.0-47.0); Hemoglobin 13.1 g/dl (12.0-16.0); Mean Corpuscular HGB Conc 33.2 g/dl (31.0-35.0); Mean Corpuscular Hemoglobin 31.4 pg (27.0-33.0); Mean Corpuscular Volume 94.7 fL (80.0-98.0); Mean Platelet Volume 8.9 fL (9.4-12.3); Platelet Count 390 X10*3/uL (160-400); Red Blood Count 4.17 X10*6/uL (4.20-5.50); Red Cell Distribution Width 13.1 % (11.0-16.0); White Blood Count 9.6 X10*3/uL (4.8-10.8)
[2021-04-28 06:39] LABS: Anion Gap 15 (12-20); Blood Urea Nitrogen 8 mg/dL (9-16); Calcium 9.4 mg/dL (8.4-10.2); Carbon Dioxide 28 mmol/L (22-29); Chloride 99 mmol/L (96-108); Creatinine Clr Calc Pharmacy 77.7; Estimated Glomerular Filt Rate > 60; Glucose Fasting 106 mg/dL (60-99); Potassium 3.8 mmol/L (3.3-5.1); Sodium 138 mmol/L (135-145)
[2021-04-28] MEDS: methylPREDNISolone Sod Succ 125 MG/2 ML VIAL 60 MG IV (07:23)
--- NOTE | 2021-04-28 08:10 | PM.EVENT ---
Event Note Date of Service: 04/27/21 Event Note: GI Late entry, pt seen and examined 04/27 S./ Started clear llquids complaining of abd bloating no vomiting O./ vss abd protuberant, no rebound labs and abd xray reviewed A/P SBO trial of clear liquids as per Dr Escobar. reviewed plan with pt. Call out to Dr. Appiah, [employer]/Onc at pt request.
--- NOTE | 2021-04-28 09:06 | PM.PNGS ---
Subjective Subjective Date of Service: 04/29/21 Interval history: Says she has had pain all night Has been asking for pain medications Denies flatus Feels bloated Says she is desperate for relief in asking about surgery Physical Exam Vital Signs: Vital Signs: Last Vital Signs Temp 97.3 F 04/28/21 07:26 Pulse 80 04/28/21 07:26 Resp 16 04/28/21 07:26 BP 186/94 H 04/28/21 07:26 Pulse Ox 98 04/28/21 07:26 BMI result Body Mass Index 21.0 Const: Other: Appears very anxious General: no acute distress and acute distress Resp: Effort & Inspection: normal respiratory effort Cardio: Rate: regular rate GI: Other: Somewhat distended soft, diffusely tender no guarding/ rebound Objective Data Active Medications Acetaminophen (Acetaminophen 325 Mg Tablet) 650 mg PO Q6H PRN PRN Reason: Pain, Mild (Pain Scale 1-3) Last Admin: 04/23/21 19:51 Dose: 650 mg Documented by: SKY Clonazepam (Clonazepam 0.5 Mg Tablet) 0.5 mg PO TID [facility] Last Admin: 04/28/21 07:29 Dose: Not Given Documented by: MATIASA Non-Admin Reason: Patient Refused Dicyclomine HCl (Dicyclomine Hcl 10 Mg Capsule) 20 mg PO QID [facility] Last Admin: 04/28/21 07:29 Dose: Not Given Documented by: DABA Non-Admin Reason: Patient Refused Enoxaparin Sodium (Enoxaparin Sodium 40 Mg/0.4 Ml Syringe) 40 mg SUBCUT DAILY [facility] Last Admin: 04/28/21 07:29 Dose: Not Given Documented by: DABA Non-Admin Reason: Patient Refused Hydromorphone HCl (Hydromorphone Hcl 1 Mg/Ml Syringe) 1 mg IVPUSH Q4H PRN; Protocol PRN Reason: moderate pain Last Admin: 04/28/21 07:23 Dose: 1 mg Documented by: KIA Metronidazole (Flagyl) 500 mg in 100 mls @ 100 mls/hr IV Q8H [facility] Last Infusion: 04/28/21 06:20 Dose: 0 mls/hr Documented by: IBRAHIMA Lactated Ringer's (Lr) 1,000 mls @ 80 mls/hr IVCONT .[id number] [facility] Last Infusion: 04/28/21 06:21 Dose: 80 mls/hr Documented by: IBRAHIMA Mesalamine (Mesalamine 400 Mg Cap.Drtab.) 800 mg PO TID [facility] Last Admin: 04/28/21 07:30 Dose: Not Given Documented by: KIA Non-Admin Reason: Patient Refused Methylprednisolone Sodium Succinate (Methylprednisolone Sod Succ 125 Mg/2 Ml Vial) 60 mg IV DAILY [facility] Last Admin: 04/28/21 07:23 Dose: 60 mg Documented by: KIA Non-Formulary Medication (Norgestimate-Ethinyl Estradiol [Estarylla]) 1 tab PO DAILY [facility] Last Admin: 04/27/21 14:39 Dose: Not Given Documented by: KIA Non-Admin Reason: med not avail Omeprazole (Omeprazole 40 Mg Capsule.Dr) 40 mg PO DAILY@0630 [facility] Last Admin: 04/28/21 07:29 Dose: Not Given Documented by: KIA Non-Admin Reason: Patient Refused Ondansetron HCl (Ondansetron Hcl 4 Mg/2 Ml Vial) 4 mg IVPUSH Q6H PRN PRN Reason: nausea Last Admin: 04/28/21 03:42 Dose: 4 mg Documented by: IBRAHIMA Pharmacy Consult (Consult Rx Perform Med Rec) 1 each MISCELLANE ONCE PRN PRN Reason: Consult order Sodium Chloride (0.9 % Sodium Chloride Flush 3 Ml Syringe) 3 ml IVFLUSH QSHIFT [facility] Last Admin: 04/28/21 06:57 Dose: Not Given Documented by: KIA Non-Admin Reason: IV Running Vancomycin HCl (Vancomycin Hcl 125 Mg Capsule) 125 mg PO QID [facility] Last Admin: 04/28/21 07:30 Dose: Not Given Documented by: KIA Non-Admin Reason: Patient Refused Zolpidem Tartrate (Zolpidem Tartrate 5 Mg Tablet) 5 mg PO BEDTIME PRN PRN Reason: Sleep Last Admin: 04/27/21 20:47 Dose: 5 mg Documented by: IBRAHIMA Labs CBC & Chem 7: 04/29/21 06:14 04/29/21 06:14 Labs: Laboratory Results - last 24 hr 04/28/21 04/28/21 05:54 05:54 MCV 94.7 MCH 31.4 MCHC 33.2 RDW 13.1 Plt Count 390 D MPV 8.9 L Absolute Nucleated RBC 0.000 Nucleated RBC % (auto) 0.0 Anion Gap 15 Estim Creat Clear Calc 77.7 Estimated GFR > 60 Fasting Glucose 106 H Calcium 9.4 D Procedures Date of Service Date of Service: 04/28/21 Progress Note: A&P Assessment and plan (1) Small bowel obstruction: Status: Acute Assessment and Plan: I have reviewed her his CAT scan images multiple times with the radiologist Dr. Dickey. She has had worsening of this segment of the distal small bowel with thickening and chronic inflammatory changes. This is likely secondary to radiation more than Crohn's disease. Relative to her previous CAT scans, there has has been steady progression of these changes. Furthermore, the patient has had multiple admissions for this same problem. I had a long discussion with her about the above. She says that she really needs relief of this pain and wants to proceed with surgery. I explained to the technique of exploratory laparotomy, possible small-bowel resection and possible stoma with an ileostomy. Reviewed the risks including but not limited to bleeding, and infections, injury to bowel, and other organs, postop adhesions, as well as the benefits and alternatives. She understands and wants to proceed. Fall Risk Details Current Medications: Current Medications Acetaminophen (Acetaminophen 325 Mg Tablet) 650 mg PO Q6H PRN PRN Reason: Pain, Mild (Pain Scale 1-3) Last Admin: 04/23/21 19:51 Dose: 650 mg Documented by: Clonazepam (Clonazepam 0.5 Mg Tablet) 0.5 mg PO TID [facility] Last Admin: 04/28/21 07:29 Dose: Not Given Documented by: Dicyclomine HCl (Dicyclomine Hcl 10 Mg Capsule) 20 mg PO QID [facility] Last Admin: 04/28/21 07:29 Dose: Not Given Documented by: Enoxaparin Sodium (Enoxaparin Sodium 40 Mg/0.4 Ml Syringe) 40 mg SUBCUT DAILY [facility] Last Admin: 04/28/21 07:29 Dose: Not Given Documented by: Hydromorphone HCl (Hydromorphone Hcl 1 Mg/Ml Syringe) 1 mg IVPUSH Q4H PRN; Protocol PRN Reason: moderate pain Last Admin: 04/28/21 07:23 Dose: 1 mg Documented by: Metronidazole (Flagyl) 500 mg in 100 mls @ 100 mls/hr IV Q8H [facility] Last Infusion: 04/28/21 06:20 Dose: Infused Documented by: Lactated Ringer's (Lr) 1,000 mls @ 80 mls/hr IVCONT .[id number] [facility] Last Infusion: 04/28/21 06:21 Dose: 80 mls/hr Documented by: Mesalamine (Mesalamine 400 Mg Cap.Drtab.) 800 mg PO TID [facility] Last Admin: 04/28/21 07:30 Dose: Not Given Documented by: Methylprednisolone Sodium Succinate (Methylprednisolone Sod Succ 125 Mg/2 Ml Vial) 60 mg IV DAILY [facility] Last Admin: 04/28/21 07:23 Dose: 60 mg Documented by: Non-Formulary Medication (Norgestimate-Ethinyl Estradiol [Estarylla]) 1 tab PO DAILY [facility] Last Admin: 04/27/21 21:52 Dose: Not Given Documented by: Omeprazole (Omeprazole 40 Mg Capsule.Dr) 40 mg PO DAILY@0630 [facility] Last Admin: 04/28/21 07:29 Dose: Not Given Documented by: Ondansetron HCl (Ondansetron Hcl 4 Mg/2 Ml Vial) 4 mg IVPUSH Q6H PRN PRN Reason: nausea Last Admin: 04/28/21 03:42 Dose: 4 mg Documented by: Pharmacy Consult (Consult Rx Perform Med Rec) 1 each MISCELLANE ONCE PRN PRN Reason: Consult order Sodium Chloride (0.9 % Sodium Chloride Flush 3 Ml Syringe) 3 ml IVFLUSH QSHIFT [facility] Last Admin: 04/28/21 06:57 Dose: Not Given Documented by: Vancomycin HCl (Vancomycin Hcl 125 Mg Capsule) 125 mg PO QID [facility] Last Admin: 04/28/21 07:30 Dose: Not Given Documented by: Zolpidem Tartrate (Zolpidem Tartrate 5 Mg Tablet) 5 mg PO BEDTIME PRN PRN Reason: Sleep Last Admin: 04/27/21 20:47 Dose: 5 mg Documented by: Time Spent With Patient Time: Total time spent is greater than 50% in coordination of care (as documented) at patient's floor/unit and/or counseling patient: Quality Stroke Does the patient have a stroke diagnosis?: No VTE Prior VTE?: No VTE Risk Level:: Medical - moderate - high VTE Device Contraindication: Treatment Not Indicated VTE Drug Contraindication: N/A - Med Ordered
--- NOTE | 2021-04-28 11:20 | P.CONAN_ITS ---
[facility] Active Problems Active Problems: All Active Problems (Updated 04/28/21 @ 09:08 by Vazquez Escobar MD) Small bowel obstruction (Acute) Nausea & vomiting (Acute) C. difficile colitis (Acute) Abdominal pain (Acute) Pancolitis (Acute) Past Medical History Medical History (Updated 04/28/21 @ 09:08 by Vazquez Escobar MD) Anxiety Cervical cancer Cholecystectomy planned Colitis Colitis COVID-19 Radiation cystitis Small bowel obstruction Functional capacity: independent ambulation Family History Family History Other No family history of coronary artery disease Family history of problems with anesthesia: No Surgical History Surgical History Hx of elbow surgery Tubal ligation status History of Problems with Anesthesia: No Social History Social History Household Members: Spouse and Family Housing: House Do you presently have visiting nurse or other home services: No Alcohol intake: never Patient Tobacco Use Status: Current everyday Tobacco user Tobacco use type: Cigarette Cigarettes Per Day: 2 Years Smoked: 25 Second Hand Smoke Exposure: No Substance Use Type: Other Advance Directives Date on File: 09/10/20 service: No Current occupational status: employed Meds Allergies Allergy/AdvReac Type Severity Reaction Status Date / Time guaifenesin [GUAIFENESIN] Allergy Intermediate HIVES Verified 04/06/21 12:53 metaproterenol [From Alupent] Allergy Mild PALPITATIONS, Verified 04/06/21 12:53 RASH Active Medications: Current Medications Acetaminophen (Acetaminophen 325 Mg Tablet) 650 mg PO Q6H PRN PRN Reason: Pain, Mild (Pain Scale 1-3) Last Admin: 04/23/21 19:51 Dose: 650 mg Documented by: Clonazepam (Clonazepam 0.5 Mg Tablet) 0.5 mg PO TID [facility] Last Admin: 04/28/21 07:29 Dose: Not Given Documented by: Dicyclomine HCl (Dicyclomine Hcl 10 Mg Capsule) 20 mg PO QID [facility] Last Admin: 04/28/21 07:29 Dose: Not Given Documented by: Enoxaparin Sodium (Enoxaparin Sodium 40 Mg/0.4 Ml Syringe) 40 mg SUBCUT DAILY [facility] Last Admin: 04/28/21 07:29 Dose: Not Given Documented by: Hydromorphone HCl (Hydromorphone Hcl 1 Mg/Ml Syringe) 1 mg IVPUSH Q4H PRN; Protocol PRN Reason: moderate pain Last Admin: 04/28/21 07:23 Dose: 1 mg Documented by: Metronidazole (Flagyl) 500 mg in 100 mls @ 100 mls/hr IV Q8H [facility] Last Infusion: 04/28/21 06:20 Dose: Infused Documented by: Lactated Ringer's (Lr) 1,000 mls @ 80 mls/hr IVCONT .[id number] [facility] Last Infusion: 04/28/21 06:21 Dose: 80 mls/hr Documented by: Mesalamine (Mesalamine 400 Mg Cap.Drtab.) 800 mg PO TID [facility] Last Admin: 04/28/21 07:30 Dose: Not Given Documented by: Methylprednisolone Sodium Succinate (Methylprednisolone Sod Succ 125 Mg/2 Ml Vial) 60 mg IV DAILY [facility] Last Admin: 04/28/21 07:23 Dose: 60 mg Documented by: Non-Formulary Medication (Norgestimate-Ethinyl Estradiol [Estarylla]) 1 tab PO DAILY [facility] Last Admin: 04/28/21 09:26 Dose: Not Given Documented by: Omeprazole (Omeprazole 40 Mg Capsule.Dr) 40 mg PO DAILY@0630 [facility] Last Admin: 04/28/21 07:29 Dose: Not Given Documented by: Ondansetron HCl (Ondansetron Hcl 4 Mg/2 Ml Vial) 4 mg IVPUSH Q6H PRN PRN Reason: nausea Last Admin: 04/28/21 03:42 Dose: 4 mg Documented by: Pharmacy Consult (Consult Rx Perform Med Rec) 1 each MISCELLANE ONCE PRN PRN Reason: Consult order Sodium Chloride (0.9 % Sodium Chloride Flush 3 Ml Syringe) 3 ml IVFLUSH QSHIFT [facility] Last Admin: 04/28/21 06:57 Dose: Not Given Documented by: Vancomycin HCl (Vancomycin Hcl 125 Mg Capsule) 125 mg PO QID [facility] Last Admin: 04/28/21 07:30 Dose: Not Given Documented by: Zolpidem Tartrate (Zolpidem Tartrate 5 Mg Tablet) 5 mg PO BEDTIME PRN PRN Reason: Sleep Last Admin: 04/27/21 20:47 Dose: 5 mg Documented by: Home Medications Medication Instructions Recorded Confirmed Last Taken Type clonazepam 0.5 mg tablet 0.5 mg PO TID 09/09/20 04/23/21 01/04/21 History norgestimate 0.25 mg-ethinyl 1 tab PO DAILY 09/09/20 04/23/21 01/04/21 History estradiol 35 mcg tablet (Estarylla) oxycodone 5 mg tablet 1 tab PO TID PRN 09/09/20 04/23/21 01/04/21 History zolpidem 12.5 mg tablet,extended 1 tab PO BEDTIME PRN 09/09/20 04/23/21 01/03/21 History release,multiphase dicyclomine 20 mg tablet 20 mg PO QID 04/06/21 04/23/21 Unknown History mesalamine 400 mg capsule (with 2 cap PO TID 04/06/21 04/23/21 Unknown History delayed release tablets inside) (Delzicol) omeprazole 40 mg capsule,delayed 1 cap PO QAM 04/23/21 04/23/21 Unknown History release ondansetron 4 mg disintegrating 1 tab PO DAILY 04/23/21 04/23/21 Unknown History tablet prednisone 10 mg tablet 30 mg PO DAILY 04/23/21 04/23/21 Unknown History Exam Exam Date and Time: April 28, 2021 1120 Height,Weight and Vital Signs: Height 5 ft 3 in Weight 54 kg Last Vital Signs Temp 97.3 F 04/28/21 07:26 Pulse 80 04/28/21 07:26 Resp 16 04/28/21 07:26 BP 186/94 H 04/28/21 07:26 Pulse Ox 98 04/28/21 07:26 Pertinent Lab Results Pertinent Lab Results: Laboratory Tests 04/23/21 04/23/21 04/23/21 11:47 11:48 11:48 WBC 12.2 H RBC 4.07 L Hgb 12.6 Hct 39.3 MCV 96.6 MCH 31.0 MCHC 32.1 RDW 13.4 Plt Count 322 MPV 8.9 L Immature Gran % (Auto) 0.3 Neut % (Auto) 86.7 H Lymph % (Auto) 6.9 L Sherman % (Auto) 5.8 Eos % (Auto) 0.2 Baso % (Auto) 0.1 Lymph # (Auto) 0.8 L Sherman # (Auto) 0.7 Eos # (Auto) 0.0 Baso # (Auto) 0.0 Abs Immat Gran (auto) 0.04 H Absolute Neuts (auto) 10.6 H Absolute Nucleated RBC 0.000 Nucleated RBC % (auto) 0.0 ESR Hold Purple Top SEE NOTE PT INR Sodium Potassium Chloride Carbon Dioxide Anion Gap BUN Creatinine Estim Creat Clear Calc Estimated GFR Random Glucose Fasting Glucose Lactic Acid Calcium Magnesium Total Bilirubin AST ALT Alkaline Phosphatase C-Reactive Protein 2.69 H Total Protein Albumin Beta HCG, Quant Urine Color Urine Appearance Urine pH Ur Specific Hamilton Urine Protein Urine Glucose (UA) Urine Ketones Urine Blood Urine Nitrite Ur Leukocyte Esterase Urine RBC Urine WBC Ur Squamous Epith Cells Ur Renal Epithelial Cell Urine Bacteria Urine Mucus COVID-19 (JANIS) COVID-19 Clin Com Influenza Type A (LINDA) Influenza Type B (LINDA) Influenza A & B Note Blood Type Antibody Screen 04/23/21 04/23/21 04/23/21 11:48 11:48 11:48 WBC RBC Hgb Hct MCV MCH MCHC RDW Plt Count MPV Immature Gran % (Auto) Neut % (Auto) Lymph % (Auto) Sherman % (Auto) Eos % (Auto) Baso % (Auto) Lymph # (Auto) Sherman # (Auto) Eos # (Auto) Baso # (Auto) Abs Immat Gran (auto) Absolute Neuts (auto) Absolute Nucleated RBC Nucleated RBC % (auto) ESR 12 Hold Purple Top PT 11.5 INR 1.0 Sodium 140 Potassium 3.7 Chloride 106 Carbon Dioxide 25 Anion Gap 13 BUN 8 L Creatinine 0.63 Estim Creat Clear Calc 7.9 Estimated GFR > 60 Random Glucose 98 Fasting Glucose Lactic Acid Calcium 8.1 L Magnesium 1.9 Total Bilirubin 0.5 AST 21 D ALT 31 Alkaline Phosphatase 57 C-Reactive Protein Total Protein 5.3 L Albumin 3.2 L Beta HCG, Quant < 2 Urine Color Urine Appearance Urine pH Ur Specific Hamilton Urine Protein Urine Glucose (UA) Urine Ketones Urine Blood Urine Nitrite Ur Leukocyte Esterase Urine RBC Urine WBC Ur Squamous Epith Cells Ur Renal Epithelial Cell Urine Bacteria Urine Mucus COVID-19 (JANIS) COVID-19 Clin Com Influenza Type A (LINDA) Influenza Type B (LINDA) Influenza A & B Note Blood Type Antibody Screen 04/23/21 04/23/21 04/23/21 11:48 13:03 13:07 WBC RBC Hgb Hct MCV MCH MCHC RDW Plt Count MPV Immature Gran % (Auto) Neut % (Auto) Lymph % (Auto) Sherman % (Auto) Eos % (Auto) Baso % (Auto) Lymph # (Auto) Sherman # (Auto) Eos # (Auto) Baso # (Auto) Abs Immat Gran (auto) Absolute Neuts (auto) Absolute Nucleated RBC Nucleated RBC % (auto) ESR Hold Purple Top PT INR Sodium Potassium Chloride Carbon Dioxide Anion Gap BUN Creatinine Estim Creat Clear Calc Estimated GFR Random Glucose Fasting Glucose Lactic Acid 0.6 Calcium Magnesium Total Bilirubin AST ALT Alkaline Phosphatase C-Reactive Protein Total Protein Albumin Beta HCG, Quant Urine Color YELLOW Urine Appearance CLEAR Urine pH 7.0 Ur Specific Hamilton 1.015 Urine Protein NEG Urine Glucose (UA) NEG Urine Ketones NEG Urine Blood NEG Urine Nitrite NEG Ur Leukocyte Esterase NEG Urine RBC 0 Urine WBC 0 Ur Squamous Epith Cells TRACE Ur Renal Epithelial Cell TRACE Urine Bacteria NONE Urine Mucus TRACE COVID-19 (JANIS) COVID-19 Clin Com Influenza Type A (LINDA) Negative Influenza Type B (LINDA) Negative Influenza A & B Note See Note Blood Type Antibody Screen 04/23/21 04/24/21 04/24/21 13:07 05:30 05:30 WBC 6.0 RBC 3.46 L Hgb 10.8 L Hct 33.7 L MCV 97.4 MCH 31.2 MCHC 32.0 RDW 13.5 Plt Count 264 MPV 8.6 L Immature Gran % (Auto) Neut % (Auto) Lymph % (Auto) Sherman % (Auto) Eos % (Auto) Baso % (Auto) Lymph # (Auto) Sherman # (Auto) Eos # (Auto) Baso # (Auto) Abs Immat Gran (auto) Absolute Neuts (auto) Absolute Nucleated RBC 0.000 Nucleated RBC % (auto) 0.0 ESR Hold Purple Top PT INR Sodium 141 Potassium 3.7 Chloride 106 Carbon Dioxide 28 Anion Gap 11 L BUN 5 L Creatinine 0.64 Estim Creat Clear Calc 89.8 Estimated GFR > 60 Random Glucose Fasting Glucose 88 Lactic Acid Calcium 8.3 L Magnesium Total Bilirubin AST ALT Alkaline Phosphatase C-Reactive Protein Total Protein Albumin Beta HCG, Quant Urine Color Urine Appearance Urine pH Ur Specific Hamilton Urine Protein Urine Glucose (UA) Urine Ketones Urine Blood Urine Nitrite Ur Leukocyte Esterase Urine RBC Urine WBC Ur Squamous Epith Cells Ur Renal Epithelial Cell Urine Bacteria Urine Mucus COVID-19 (JANIS) Negative COVID-19 Clin Com See Note Influenza Type A (LINDA) Influenza Type B (LINDA) Influenza A & B Note Blood Type Antibody Screen 04/25/21 04/25/21 04/26/21 05:56 05:56 05:18 WBC 6.2 8.2 RBC 3.40 L 3.78 L Hgb 10.5 L 11.6 L Hct 32.9 L 36.1 L MCV 96.8 95.5 MCH 30.9 30.7 MCHC 31.9 32.1 RDW 13.3 13.2 Plt Count 289 330 MPV 8.9 L 8.9 L Immature Gran % (Auto) Neut % (Auto) Lymph % (Auto) Sherman % (Auto) Eos % (Auto) Baso % (Auto) Lymph # (Auto) Sherman # (Auto) Eos # (Auto) Baso # (Auto) Abs Immat Gran (auto) Absolute Neuts (auto) Absolute Nucleated RBC 0.000 0.000 Nucleated RBC % (auto) 0.0 0.0 ESR Hold Purple Top PT INR Sodium 140 Potassium 3.4 Chloride 105 Carbon Dioxide 27 Anion Gap 11 L BUN 4 L Creatinine 0.62 Estim Creat Clear Calc 92.7 Estimated GFR > 60 Random Glucose Fasting Glucose 117 H Lactic Acid Calcium 10.0 D Magnesium Total Bilirubin AST ALT Alkaline Phosphatase C-Reactive Protein Total Protein Albumin Beta HCG, Quant Urine Color Urine Appearance Urine pH Ur Specific Hamilton Urine Protein Urine Glucose (UA) Urine Ketones Urine Blood Urine Nitrite Ur Leukocyte Esterase Urine RBC Urine WBC Ur Squamous Epith Cells Ur Renal Epithelial Cell Urine Bacteria Urine Mucus COVID-19 (JANIS) COVID-19 Clin Com Influenza Type A (LINDA) Influenza Type B (LINDA) Influenza A & B Note Blood Type Antibody Screen 04/26/21 04/27/21 04/27/21 05:18 05:31 05:31 WBC 4.8 RBC 3.32 L Hgb 10.4 L Hct 31.9 L MCV 96.1 MCH 31.3 MCHC 32.6 RDW 13.3 Plt Count 274 MPV 8.5 L Immature Gran % (Auto) Neut % (Auto) Lymph % (Auto) Sherman % (Auto) Eos % (Auto) Baso % (Auto) Lymph # (Auto) Sherman # (Auto) Eos # (Auto) Baso # (Auto) Abs Immat Gran (auto) Absolute Neuts (auto) Absolute Nucleated RBC 0.000 Nucleated RBC % (auto) 0.0 ESR Hold Purple Top PT INR Sodium 137 140 Potassium 3.9 3.9 Chloride 101 104 Carbon Dioxide 26 28 Anion Gap 14 12 BUN 5 L 9 D Creatinine 0.67 0.65 Estim Creat Clear Calc 85.9 88.5 Estimated GFR > 60 > 60 Random Glucose Fasting Glucose 115 H 89 Lactic Acid Calcium 8.7 D 8.5 Magnesium Total Bilirubin AST ALT Alkaline Phosphatase C-Reactive Protein Total Protein Albumin Beta HCG, Quant Urine Color Urine Appearance Urine pH Ur Specific Hamilton Urine Protein Urine Glucose (UA) Urine Ketones Urine Blood Urine Nitrite Ur Leukocyte Esterase Urine RBC Urine WBC Ur Squamous Epith Cells Ur Renal Epithelial Cell Urine Bacteria Urine Mucus COVID-19 (JANIS) COVID-19 Clin Com Influenza Type A (LINDA) Influenza Type B (LINDA) Influenza A & B Note Blood Type Antibody Screen 04/28/21 04/28/21 04/28/21 05:54 05:54 09:23 WBC 9.6 RBC 4.17 L D Hgb 13.1 D Hct 39.5 D MCV 94.7 MCH 31.4 MCHC 33.2 RDW 13.1 Plt Count 390 D MPV 8.9 L Immature Gran % (Auto) Neut % (Auto) Lymph % (Auto) Sherman % (Auto) Eos % (Auto) Baso % (Auto) Lymph # (Auto) Sherman # (Auto) Eos # (Auto) Baso # (Auto) Abs Immat Gran (auto) Absolute Neuts (auto) Absolute Nucleated RBC 0.000 Nucleated RBC % (auto) 0.0 ESR Hold Purple Top PT INR Sodium 138 Potassium 3.8 Chloride 99 Carbon Dioxide 28 Anion Gap 15 BUN 8 L Creatinine 0.74 Estim Creat Clear Calc 77.7 Estimated GFR > 60 Random Glucose Fasting Glucose 106 H Lactic Acid Calcium 9.4 D Magnesium Total Bilirubin AST ALT Alkaline Phosphatase C-Reactive Protein Total Protein Albumin Beta HCG, Quant Urine Color Urine Appearance Urine pH Ur Specific Hamilton Urine Protein Urine Glucose (UA) Urine Ketones Urine Blood Urine Nitrite Ur Leukocyte Esterase Urine RBC Urine WBC Ur Squamous Epith Cells Ur Renal Epithelial Cell Urine Bacteria Urine Mucus COVID-19 (JANIS) COVID-19 Clin Com Influenza Type A (LINDA) Influenza Type B (LINDA) Influenza A & B Note Blood Type A Positive Antibody Screen NEGATIVE Airway Mallampati Class: II TM Dist: >3cm Neck ROM: Full Heart: RRR Lungs: CTA Assessment and Plan Final Anesthetic Review Family History of Problems with Anesthesia: No History of Problems with Anesthesia: No ASA Class: III and Emergency Final Preanesthetic Review: Meds/Allgs Chart Reviewed, Consent Obtained/Reviewed and Anes Risks/Benef Reviewed Patient Risk: Intermediate Procedure Risk: Intermediate Anesthetic Plan Anesthetic Plan: GA Disposition: Standard PACU
--- NOTE | 2021-04-28 11:30 | MHC.CM.PN ---
EMR REVIEWED, PER HOSPITALIST PT WILL HAVE SURGERY TODAY, PER SURGICAL EXPLORATORY LAP W/POSSIBLE SMALL BOWEL RESECTION W/POSSIBLE STOMA/ILEOSTOMY, CM WILL PLACE REFERRALS FOR [facility] IN ANTIC SHE WILL D/C W/NEW ILEOSTOMY. CM WILL CONT TO FOLLOW D/C NEEDS.
--- NOTE | 2021-04-28 12:53 | PC.NURSE ---
NG tube placed at bedside by Dr. Ojeda, anesthesiologist. pt tolerated well. output 400mL green brown drainage.
--- NOTE | 2021-04-28 13:28 | HO.PM.IMPN ---
Subjective Subjective Date of Service: 04/28/21 Interval History: the patient was seen and evaluated this morning Laying? in bed,? pain worse today unable to tolerate any liquids No reported other overnight events. Systemic review: No fever, chills or weakness No chest pain, palpitation No shortness of breath or coughing reporting pain, nausea and vomiting No urinary symptoms No any rash or wounds Physical Exam Vital Signs: Vital Signs: Last Vital Signs Temp 98.9 F 04/28/21 11:18 Pulse 64 04/28/21 11:18 Resp 16 04/28/21 11:18 BP 152/84 H 04/28/21 11:18 Pulse Ox 99 04/28/21 11:18 BMI result Body Mass Index 21.0 Const: Other: Constitutional : Alert, interactive, in pain, in mild distress Neck : Normal inspection, Supple Cardiovascular : RRR, S1 S2, no lower extremity edema Respiratory : Good bilateral air entry, no crackles, wheezes or rhonchi Gastrointestinal: soft, lax, decreased bowel sounds, generalized tender with superficial palpation Skin : Warm, Dry Neurological : Alert & oriented x3, No focal deficit Objective Data Active Medications Acetaminophen (Acetaminophen 325 Mg Tablet) 650 mg PO Q6H PRN PRN Reason: Pain, Mild (Pain Scale 1-3) Last Admin: 04/23/21 19:51 Dose: 650 mg Documented by: FABIÁNRISHarvey Clonazepam (Clonazepam 0.5 Mg Tablet) 0.5 mg PO TID [facility] Last Admin: 04/28/21 07:29 Dose: Not Given Documented by: DABA Non-Admin Reason: Patient Refused Dicyclomine HCl (Dicyclomine Hcl 10 Mg Capsule) 20 mg PO QID [facility] Last Admin: 04/28/21 07:29 Dose: Not Given Documented by: DABA Non-Admin Reason: Patient Refused Enoxaparin Sodium (Enoxaparin Sodium 40 Mg/0.4 Ml Syringe) 40 mg SUBCUT DAILY [facility] Last Admin: 04/28/21 07:29 Dose: Not Given Documented by: DABA Non-Admin Reason: Patient Refused Fentanyl (Fentanyl Citrate/Pf 100 Mcg/2 Ml Vial) 25 mcg IVPUSH Q5M PRN; Protocol PRN Reason: Pain, Moderate (Pain Scale 4-6 Hydromorphone HCl (Hydromorphone Hcl 1 Mg/Ml Syringe) 1 mg IVPUSH Q4H PRN; Protocol PRN Reason: moderate pain Last Admin: 04/28/21 07:23 Dose: 1 mg Documented by: KIA Hydromorphone HCl (Hydromorphone Hcl 0.5 Mg/0.5 Ml Syringe) 0.25 mg IVPUSH Q5M PRN; Protocol PRN Reason: Pain, Severe (Pain Scale 7-10) Hydromorphone HCl (Hydromorphone Hcl 0.5 Mg/0.5 Ml Syringe) 0.25 mg IVPUSH Q5M PRN; Protocol PRN Reason: Pain, Severe (Pain Scale 7-10) Metronidazole (Flagyl) 500 mg in 100 mls @ 100 mls/hr IV Q8H [facility] Last Infusion: 04/28/21 06:20 Dose: 0 mls/hr Documented by: IBRAHIMA Lactated Ringer's (Lr) 1,000 mls @ 80 mls/hr IVCONT .[id number] [facility] Last Infusion: 04/28/21 06:21 Dose: 80 mls/hr Documented by: IBRAHIMA Mesalamine (Mesalamine 400 Mg Cap.Drtab.) 800 mg PO TID [facility] Last Admin: 04/28/21 07:30 Dose: Not Given Documented by: KIA Non-Admin Reason: Patient Refused Methylprednisolone Sodium Succinate (Methylprednisolone Sod Succ 125 Mg/2 Ml Vial) 60 mg IV DAILY [facility] Last Admin: 04/28/21 07:23 Dose: 60 mg Documented by: KIA Non-Formulary Medication (Norgestimate-Ethinyl Estradiol [Estarylla]) 1 tab PO DAILY [facility] Last Admin: 04/28/21 09:26 Dose: Not Given Documented by: KIA Non-Admin Reason: Patient Refused Omeprazole (Omeprazole 40 Mg Capsule.Dr) 40 mg PO DAILY@0630 [facility] Last Admin: 04/28/21 07:29 Dose: Not Given Documented by: KIA Non-Admin Reason: Patient Refused Ondansetron HCl (Ondansetron Hcl 4 Mg/2 Ml Vial) 4 mg IVPUSH Q6H PRN PRN Reason: nausea Last Admin: 04/28/21 03:42 Dose: 4 mg Documented by: IBRAHIMA Ondansetron HCl (Ondansetron Hcl 4 Mg/2 Ml Vial) 4 mg IVPUSH ONCE PRN PRN Reason: Nausea and Vomiting Pharmacy Consult (Consult Rx Perform Med Rec) 1 each MISCELLANE ONCE PRN PRN Reason: Consult order Sodium Chloride (0.9 % Sodium Chloride Flush 3 Ml Syringe) 3 ml IVFLUSH QSHIFT [facility] Last Admin: 04/28/21 06:57 Dose: Not Given Documented by: KIA Non-Admin Reason: IV Running Vancomycin HCl (Vancomycin Hcl 125 Mg Capsule) 125 mg PO QID [facility] Last Admin: 04/28/21 07:30 Dose: Not Given Documented by: KIA Non-Admin Reason: Patient Refused Zolpidem Tartrate (Zolpidem Tartrate 5 Mg Tablet) 5 mg PO BEDTIME PRN PRN Reason: Sleep Last Admin: 04/27/21 20:47 Dose: 5 mg Documented by: IBRAHIMA Labs CBC & Chem 7: 04/28/21 05:54 04/28/21 05:54 Labs: Laboratory Results - last 24 hr 04/28/21 04/28/21 04/28/21 05:54 05:54 09:23 MCV 94.7 MCH 31.4 MCHC 33.2 RDW 13.1 Plt Count 390 D MPV 8.9 L Absolute Nucleated RBC 0.000 Nucleated RBC % (auto) 0.0 Anion Gap 15 Estim Creat Clear Calc 77.7 Estimated GFR > 60 Fasting Glucose 106 H Calcium 9.4 D Blood Type A Positive Antibody Screen NEGATIVE Assessment and Plan (1) Small bowel obstruction: Status: Acute (2) Nausea & vomiting: Status: Acute (3) C. difficile colitis: Status: Acute Plan 45-year-old female presented with abdominal pain. intractable abdominal pain 2/2 SBO underlying Crohn's disease pain worsening, have more vomiting Plan for surgical intervention today continue iv solumedrol IV fluids, antiemetics surgery appreciated, for laparotomy today IV opiates (uncontrolled with p.o. oxycodone) GI following advanced diet as tolerated C diff colitis continue P.o. vancomycin and IV Flagyl in case not tolerating p.o. Anxiety Clonazepam Insomnia Zolpidem as needed DVT prophylaxis with Lovenox reason for continued hospitalization: SBO, Worsening abdominal pain requiring iv pain meds and surgical intervention Quality Stroke Does the patient have a stroke diagnosis?: No VTE Prior VTE?: No VTE Risk Level:: Medical - moderate - high VTE Device Contraindication: Treatment Not Indicated VTE Drug Contraindication: N/A - Med Ordered
--- NOTE | 2021-04-28 14:56 | P.OP_ITS ---
Operative Note Operative Note Date of Service: 04/28/21 Narrative: Preop diagnosis: Small bowel obstruction Postop diagnosis: Small bowel obstruction with densely adherent loop terminal ileum to the low pelvic sidewall in the right, some with signs of ischemia of the bowel wall Procedure: Laparotomy, extensive lysis of adhesions, resection of the terminal ileum and the cecum with ileocolonic anastomosis Surgeon: Vazquez Escobar MD assistant sales center manager: HOOD Vincent Patient is a 45 year female who has had but admissions because of distal small bowel obstruction. She was eventually referred to the surgical service. Review of her CT scan images with the radiologist show marked worsening of the degree of obstruction in the terminal ileum with thickening of the bowel wall. This was included radiation enteritis as the patient has history of colon cancer with radiation to the pelvis. She had distant pain during this admission and was unable to tolerate oral intake at all. Furthermore, follow-up x-ray showed no improvement of the small-bowel dilatation. In view of her continues pain overnight, had explained to her that it may be best to proceed with laparotomy and likely resection bowl stoma. I reviewed the risks of this procedure. Her significant other was also involved with the discussion and had given consent. Patient was brought to the operating room. She had an NG-tube placed under sedation by the anesthesiologist and there was 400 cc of enteric contents that was drained. She was then placed under general anesthesia via endotracheal tube. A Groves catheter had been inserted. The abdomen is prepped and draped in the usual sterile fashion. A surgical time-out was done. The patient received cefazolin 2 g IV preoperatively A low midline incision made the skin using blade 15 and this carried down through the full-thickness of the skin subcutaneous fat the fascia. The fascia was incised. The peritoneum was entered. There was note of some clear ascitic fluid in the peritoneum. There was note of diffusely distended small bowel loo ps. Applied Bookwalter retractors for optimal exposure. I the bowel loops away from the pelvis to allow visualization of the uterus and. The cecum was visualized on the right lower quadrant. There was note of a loop of small bowel at the terminal ileum that was densely adherent to the low pelvic sidewall towards the ovary. There was note of diffuse dilatation of the entire small bowel loops proximal to this. There was note of collapse of the very short terminal ileum distal to this acted loop of small bowel. The involved small bowel loops was folded on itself, and was very densely adher ent to the pelvic sidewall at the area of the ovary. This may be a consequence of her previous tubal ligation. There were no good planes the involved small bowel loops to the sidewall. Furthermore, there was note of acute angulation causing this near complete obstruction. To allow good exposure of this he went loop, I had to mobilize the cecum. I divided the ligamentous attachments of the cecum in the right colon along the white line of Toldt to lift up the retroperitoneal surface of the cecum in the right colon. By doing so was able to clearly see the terminal ileum at the il eocecal valve and was able to trace this all the way into the obstructed loop. I then had to spend a lot of time dissecting this densely adherent small bowel loops from the pelvis and the ovaries I had to carefully use Metzenbaum scissors as well as electrocautery with fine dissection using the right angle clamp to gently separate this loop of bowel from the pelvic sidewall. Again in view of this very dense adhesion, it took us a long period of time. Eventually I was able to release this. The posterior of the obstructed small bowel loop actually had ischemic changes already and was likely to eventually obstructed. There was note of a tear as well adjacent to this from the dissection was was unavoidable because of the intimate the adherent serosa. To prevent leakage of contents, I closed this tear with a running Dexon 3-0 stitch. I was therefore able to define this segment of small bowel loops with complete obstruction. Again there was note of a very short remaining ileum distal to this so I decided that we had to mobilize the cecum to allow an ileo colonic anastomosis to the right colon. I mobilized the right colon some more towards the hepatic flexure dividing the peritoneal attachments along the white line of Toldt. This allowed me to achieve good mobilization of the cecum in the right colon. I then examined the more proximal small bowel loops. There were some pallor of the serosa of the distal small bowel loops which may represent radiation changes. However, these all appeared viable. I chose a point of dissection were the distal ileum seemed to be incision into more supple segment. I did mesenteric window in this area. I used the EDMUNDO 60 mm stapler to divide this. I chose my point of dissection in the right colon just distal to the cecum. Again I created a mesenteric window and used the EDMUNDO 80 mm stapler to divide this segment of the right colon adjacent to the cecum. I marked my planned line of transection on the mesentery using electrocautery. I then divided the mesenteric attachments of this transected segment using the LigaSure until I reached the colic pedicle on both sides. I thinned out the pedicle using electrocautery. I applied clamps both proximal distal and this was transected between clamps. I doubly ligated the pedicle using Dexon 2-0 tie. The divided mesentery appeared hemostatic. I then proceeded to position the transected small bowel loop in the remaining right colon in preparation for anastomosis. Opened up the apex of each staple line to enter the lumen. I positioned each arm of the stapler into the lumen a nd aligned the anti mesenteric area together. I locked the stapler in place and examined for any bowel loop or mesentery that may be caught between the staplers. Once this to be clear, I fired the stapler to create our kane-or-habt anastomosis. I examined the lumen. I was note of a lot of enteric contents on the small bowel side. However, the staple line appeared intact I completed the anastomosis by closing the enterotomy with a TA 60 mm stapler . Examined the staple lines and these all appeared intact. I applied a seromuscular stitch at the edge of the staple line to release any tension although there was really no tension along this area. I then closed the mesenteric defect with a running Dexon 3-0 stitch. I copies irrigated. We changed gloves. I have some in for hemostasis. Once hemostasis was ensured, proceeded to then read the entire small bowel from the anastomosis all the way to the ligament of Treitz. No other pathology although the entire small bowel appeared to be distended. There is no evidence of any acute ischemia. Once examination of the entire small bowel was she had, proceeded to then position the omentum to cover the anastomosis. I closed the fascia with running PDS 1 stitch. The skin was closed with skin matt. The incision was infiltrated with Marcaine 0.5% for postop analgesia. Dressings were applied and the procedure was completed The patient tolerated procedure well. There were no complication noted. Initial and final counts of sponges and instruments were correct. Estimated blood loss about 50 cc The patient was extubated without difficulty and transferred to the recovery room with stable vital signs.
--- NOTE | 2021-04-28 14:57 | P.BOP_ITS ---
Brief Operative Note Date of Service: 04/28/21 <Tatyana Vincent PA-C - Last Filed: 04/28/21 15:00> Pre-op diagnosis: SBO <Tatyana Vincent PA-C - Last Filed: 04/28/21 15:00> Post-op diagnosis: same (terminal ileum adherent to uterus, ischemic) <Tatyana Vincent PA-C - Last Filed: 04/28/21 15:00> Procedure: exploratory laparotomy, extensive lysis of adhesions, resection of terminal ileum and cecum with ileocolic anastomosis <Tatyana Vincent PA-C - Last Filed: 04/28/21 15:00> Surgeon: MARTIN CRUZ MD <Tatyana Vincent PA-C - Last Filed: 04/28/21 15:00> Anesthesia: GETA <Tatyana Vincent PA-C - Last Filed: 04/28/21 15:00> Was an Design Engineer Marine Equipment used for this Procedure?: Yes <Tatyana Vincent PA-C - Last Filed: 04/28/21 15:00> No <Martin Cruz MD - Last Filed: 04/28/21 15:14> Design Engineer Marine Equipment: Tatyana Vincent <Tatyana Vincent PA-C - Last Filed: 04/28/21 15:00> Estimated blood loss (mL): 25 <Tatyana Vincent PA-C - Last Filed: 04/28/21 15:00> IV fluids (mL): 1,000 <Tatyana Vincent PA-C - Last Filed: 04/28/21 15:00> Urine output (mL): 700 <Tatyana Vincent PA-C - Last Filed: 04/28/21 15:00> Condition: stable <Tatyana Vincent PA-C - Last Filed: 04/28/21 15:00> Disposition: PACU <JUAN Álvarez Last Filed: 04/28/21 15:00>
[2021-04-28] MEDS: HYDROmorphone HCl 0.5 MG/0.5 ML SYRINGE 0.25 MG IVPUSH ×4 (15:28→16:03)
--- NOTE | 2021-04-28 16:12 | PM.EVENT ---
Event Note Date of Service: 04/28/21 Event Note: Seen postop She underwent problem laparotomy, resection of the terminal ileum and cecum with an ileocolonic anastomosis because of a densely adherent loop of terminal ileum causing complete obstruction Complaining of pain Stable vital signs Good urine output Pain management NG tube Significant other Darion updated
[2021-04-28] MEDS: 0.9 % Sodium Chloride Flush 3 ML SYRINGE IVFLUSH (21:34)
[2021-04-29] MEDS: HYDROmorphone HCl 1 MG/ML SYRINGE IVPUSH ×9 (02:21→21:32)
[2021-04-29] MEDS: metroNIDAZOLE/NS 500 MG/100 ML PIGGYBACK 100 MG IV (05:23)
[2021-04-29] MEDS: Lactated Ringers 1,000 ML 80 ML IVCONT ×2 (05:28→19:12)
--- NOTE | 2021-04-29 06:45 | HO.POSTANES ---
Post Anesthesia Evaluation Post Anesthesia Evaluation Vital Signs: Vital Signs Temp Pulse Resp BP Pulse Ox 04/28/21 19:22 98.0 F 77 18 172/94 H 99 Anesthesia: General Endotracheal-GETA Mental Status: Awake Pain Control: Satisfactory (moderate pain) Nausea/Vomiting: None Hydration: Adequate Anesthesia-Related Issues: No Anes. Related Issues
[2021-04-29 06:52] LABS: Hemoglobin 12.2 g/dl (12.0-16.0); Mean Corpuscular Volume 93.9 fL (80.0-98.0); Platelet Count 337 X10*3/uL (160-400); Red Blood Count 3.94 X10*6/uL (4.20-5.50); Red Cell Distribution Width 13.1 % (11.0-16.0); White Blood Count 8.4 X10*3/uL (4.8-10.8)
[2021-04-29 07:34] LABS: Anion Gap 13 (12-20); Blood Urea Nitrogen 6 mg/dL (9-16); Carbon Dioxide 28 mmol/L (22-29); Chloride 98 mmol/L (96-108); Creatinine Clr Calc Pharmacy 91.3; Estimated Glomerular Filt Rate > 60; Glucose Random 103 mg/dL (60-115); Potassium 3.7 mmol/L (3.3-5.1); Sodium 135 mmol/L (135-145)
[2021-04-29 07:45] VITALS: BP 167/104; PULSE 95; RESP 16; TEMP 36.6; O2SAT 99
[2021-04-29] MEDS: methylPREDNISolone Sod Succ 125 MG/2 ML VIAL 60 MG IV (07:48)
[2021-04-29] MEDS: LORazepam 2 MG/ML VIAL 0.25 MG IVPUSH ×2 (08:32→16:13)
--- NOTE | 2021-04-29 08:34 | PM.PNGS ---
Subjective Subjective Date of Service: 04/29/21 Interval history: Complaints of incisional pain Says she has been able to sleep Also states that she needs her anxiety medications which she takes 3 times a day Denies flatus Physical Exam Vital Signs: Vital Signs: Last Vital Signs Temp 97.9 F 04/29/21 07:45 Pulse 95 04/29/21 07:45 Resp 16 04/29/21 07:45 BP 167/104 H 04/29/21 07:45 Pulse Ox 99 04/29/21 07:45 BMI result Body Mass Index 21.0 Const: Other: Anxious General: no acute distress Orientation/consciousness: patient oriented x3 Resp: Effort & Inspection: normal respiratory effort Cardio: Rate: regular rate GI: Other: Soft, tender along incision, dressings dry Neuro: General: patient oriented x3 Objective Data Active Medications Dicyclomine HCl (Dicyclomine Hcl 10 Mg Capsule) 20 mg PO QID [facility] Last Admin: 04/29/21 07:48 Dose: Not Given Documented by: KIA Non-Admin Reason: Patient Refused Enoxaparin Sodium (Enoxaparin Sodium 40 Mg/0.4 Ml Syringe) 40 mg SUBCUT DAILY [facility] Last Admin: 04/28/21 07:29 Dose: Not Given Documented by: KIA Non-Admin Reason: Patient Refused Hydromorphone HCl (Hydromorphone Hcl 1 Mg/Ml Syringe) 1 mg IVPUSH Q2H PRN; Protocol PRN Reason: Pain, Severe (Pain Scale 7-10) Last Admin: 04/29/21 07:43 Dose: 1 mg Documented by: KIA Metronidazole (Flagyl) 500 mg in 100 mls @ 100 mls/hr IV Q8H [facility] Last Infusion: 04/29/21 06:25 Dose: 0 mls/hr Documented by: IBRAHIMA Lactated Ringer's (Lr) 1,000 mls @ 80 mls/hr IVCONT .[id number] [facility] Last Infusion: 04/29/21 06:25 Dose: 80 mls/hr Documented by: IBRAHIMA Acetaminophen (Ofirmev) 1,000 mg in 100 mls @ 400 mls/hr IV Q6H [facility] Last Infusion: 04/29/21 02:39 Dose: 0 mls/hr Documented by: IBRAHIMA Lorazepam (Lorazepam 2 Mg/Ml Vial) 0.25 mg IVPUSH TID PRN PRN Reason: Anxiety Mesalamine (Mesalamine 400 Mg Cap.Drtab.) 800 mg PO TID [facility] Last Admin: 04/29/21 07:48 Dose: Not Given Documented by: KIA Non-Admin Reason: Patient Refused Methylprednisolone Sodium Succinate (Methylprednisolone Sod Succ 125 Mg/2 Ml Vial) 60 mg IV DAILY [facility] Last Admin: 04/29/21 07:48 Dose: 60 mg Documented by: KIA Multi-Ingred Medicated Throat [place] (Throat [place], Medicated 20 Ml Bottle) 1 spray MUCOUS MEM Q2H PRN PRN Reason: throat discomfort Non-Formulary Medication (Norgestimate-Ethinyl Estradiol [Estarylla]) 1 tab PO DAILY [facility] Last Admin: 04/29/21 07:49 Dose: Not Given Documented by: KIA Non-Admin Reason: Patient Refused Omeprazole (Omeprazole 40 Mg Capsule.) 40 mg PO DAILY@0630 [facility] Last Admin: 04/29/21 05:35 Dose: Not Given Documented by: IBRAHIMA Non-Admin Reason: Patient Refused Ondansetron HCl (Ondansetron Hcl 4 Mg/2 Ml Vial) 4 mg IVPUSH Q6H PRN PRN Reason: nausea Last Admin: 04/28/21 15:39 Dose: 4 mg Documented by: HARRY Pharmacy Consult (Consult Rx Perform Med Rec) 1 each MISCELLANE ONCE PRN PRN Reason: Consult order Sodium Chloride (0.9 % Sodium Chloride Flush 3 Ml Syringe) 3 ml IVFLUSH QSHIFT [facility] Last Admin: 04/29/21 07:47 Dose: Not Given Documented by: KIA Non-Admin Reason: IV Running Vancomycin HCl (Vancomycin Hcl 125 Mg Capsule) 125 mg PO QID [facility] Last Admin: 04/29/21 07:50 Dose: Not Given Documented by: KIA Non-Admin Reason: Patient Refused Zolpidem Tartrate (Zolpidem Tartrate 5 Mg Tablet) 5 mg PO BEDTIME PRN PRN Reason: Sleep Last Admin: 04/27/21 20:47 Dose: 5 mg Documented by: IBRAHIMA Labs CBC & Chem 7: 04/29/21 06:14 04/29/21 06:14 Labs: Laboratory Results - last 24 hr 04/28/21 04/29/21 04/29/21 09:23 06:14 06:14 MCV 93.9 MCH 31.0 MCHC 33.0 RDW 13.1 Plt Count 337 MPV 9.0 L Absolute Nucleated RBC 0.000 Nucleated RBC % (auto) 0.0 Anion Gap 13 Estim Creat Clear Calc 91.3 Estimated GFR > 60 Random Glucose 103 Blood Type A Positive Antibody Screen NEGATIVE Microbiology Microbiology Results: Microbiology 04/23/21 11:54 Blood Culture - Final Blood - Venous No growth after 5 days. 04/23/21 11:47 Blood Culture - Final Blood - Venous No growth after 5 days. Procedures Date of Service Date of Service: 04/29/21 Progress Note: A&P Assessment and plan (1) Small bowel obstruction: Status: Acute Assessment and Plan: Status post resection of obstructed terminal ileum with ileo colonic anastomosis to the right colon Pain management - currently on Dilaudid and Ofirmev Will benefit from anxiety medications as she takes this t.i.d. Will keep the tube in for now and monitor output today Await return of GI function Labs okay Encouraged to get out of bed Will keep Groves in as patient says that she does not think she is ready to void on her own Fall Risk Details Current Medications: Current Medications Dicyclomine HCl (Dicyclomine Hcl 10 Mg Capsule) 20 mg PO QID [facility] Last Admin: 04/29/21 07:48 Dose: Not Given Documented by: Enoxaparin Sodium (Enoxaparin Sodium 40 Mg/0.4 Ml Syringe) 40 mg SUBCUT DAILY [facility] Last Admin: 04/28/21 07:29 Dose: Not Given Documented by: Hydromorphone HCl (Hydromorphone Hcl 1 Mg/Ml Syringe) 1 mg IVPUSH Q2H PRN; Protocol PRN Reason: Pain, Severe (Pain Scale 7-10) Last Admin: 04/29/21 07:43 Dose: 1 mg Documented by: Metronidazole (Flagyl) 500 mg in 100 mls @ 100 mls/hr IV Q8H [facility] Last Infusion: 04/29/21 06:25 Dose: Infused Documented by: Lactated Ringer's (Lr) 1,000 mls @ 80 mls/hr IVCONT .[id number] [facility] Last Infusion: 04/29/21 06:25 Dose: 80 mls/hr Documented by: Acetaminophen (Ofirmev) 1,000 mg in 100 mls @ 400 mls/hr IV Q6H [facility] Last Infusion: 04/29/21 02:39 Dose: Infused Documented by: Lorazepam (Lorazepam 2 Mg/Ml Vial) 0.25 mg IVPUSH TID PRN PRN Reason: Anxiety Mesalamine (Mesalamine 400 Mg Cap.Drtab.) 800 mg PO TID [facility] Last Admin: 04/29/21 07:48 Dose: Not Given Documented by: Methylprednisolone Sodium Succinate (Methylprednisolone Sod Succ 125 Mg/2 Ml Vial) 60 mg IV DAILY [facility] Last Admin: 04/29/21 07:48 Dose: 60 mg Documented by: Multi-Ingred Medicated Throat [place] (Throat [place], Medicated 20 Ml Bottle) 1 spray MUCOUS MEM Q2H PRN PRN Reason: throat discomfort Non-Formulary Medication (Norgestimate-Ethinyl Estradiol [Estarylla]) 1 tab PO DAILY [facility] Last Admin: 04/29/21 07:49 Dose: Not Given Documented by: Omeprazole (Omeprazole 40 Mg Capsule.Dr) 40 mg PO DAILY@0630 [facility] Last Admin: 04/29/21 05:35 Dose: Not Given Documented by: Ondansetron HCl (Ondansetron Hcl 4 Mg/2 Ml Vial) 4 mg IVPUSH Q6H PRN PRN Reason: nausea Last Admin: 04/28/21 15:39 Dose: 4 mg Documented by: Pharmacy Consult (Consult Rx Perform Med Rec) 1 each MISCELLANE ONCE PRN PRN Reason: Consult order Sodium Chloride (0.9 % Sodium Chloride Flush 3 Ml Syringe) 3 ml IVFLUSH QSHIFT [facility] Last Admin: 04/29/21 07:47 Dose: Not Given Documented by: Vancomycin HCl (Vancomycin Hcl 125 Mg Capsule) 125 mg PO QID [facility] Last Admin: 04/29/21 07:50 Dose: Not Given Documented by: Zolpidem Tartrate (Zolpidem Tartrate 5 Mg Tablet) 5 mg PO BEDTIME PRN PRN Reason: Sleep Last Admin: 04/27/21 20:47 Dose: 5 mg Documented by: Time Spent With Patient Time: Total time spent is greater than 50% in coordination of care (as documented) at patient's floor/unit and/or counseling patient: Quality Stroke Does the patient have a stroke diagnosis?: No VTE Prior VTE?: No VTE Risk Level:: Medical - moderate - high VTE Device Contraindication: Treatment Not Indicated VTE Drug Contraindication: N/A - Med Ordered
[2021-04-29 08:36] LABS: Calcium 8.5 mg/dL (8.4-10.2)
[2021-04-29 11:46] VITALS: BP 161/95; PULSE 85; RESP 17; TEMP 36.7; O2SAT 100
--- NOTE | 2021-04-29 11:57 | P.PNIM_ITS ---
Subjective Subjective Date of Service: 04/29/21 Interval History: the patient was seen and evaluated this morning Laying? in bed,?having pain at the surgical site Reporting nausea and not passing gas yet NG tube in place No reported other overnight events. Systemic review: No fever, chills or weakness but have increased anxiety No chest pain, palpitation No shortness of breath or coughing reporting pain, and some nausea No urinary symptoms No any rash or wounds Physical Exam Vital Signs: Vital Signs: Last Vital Signs Temp 98.1 F 04/29/21 11:46 Pulse 85 04/29/21 11:46 Resp 17 04/29/21 11:46 BP 161/95 H 04/29/21 11:46 Pulse Ox 100 04/29/21 11:46 BMI result Body Mass Index 21.0 Const: Other: Constitutional : Alert, interactive, in pain, looks anxious and in mild distres s Neck : Normal inspection, Supple Cardiovascular : RRR, S1 S2, no lower extremity edema Respiratory : Good bilateral air entry, no crackles, wheezes or rhonchi Gastrointestinal: soft, lax, decreased bowel sounds, generalized tender with superficial palpation, surgical site clean and covered with dressing Skin : Warm, Dry Neurological : Alert & oriented x3, No focal deficit Objective Data Active Medications Dicyclomine HCl (Dicyclomine Hcl 10 Mg Capsule) 20 mg PO QID [facility] Last Admin: 04/29/21 07:48 Dose: Not Given Documented by: KIA Non-Admin Reason: Patient Refused Enoxaparin Sodium (Enoxaparin Sodium 40 Mg/0.4 Ml Syringe) 40 mg SUBCUT DAILY [facility] Last Admin: 04/28/21 07:29 Dose: Not Given Documented by: KIA Non-Admin Reason: Patient Refused Hydromorphone HCl (Hydromorphone Hcl 1 Mg/Ml Syringe) 1 mg IVPUSH Q2H PRN; Protocol PRN Reason: Pain, Severe (Pain Scale 7-10) Last Admin: 04/29/21 11:46 Dose: 1 mg Documented by: KIA Metronidazole (Flagyl) 500 mg in 100 mls @ 100 mls/hr IV Q8H [facility] Last Infusion: 04/29/21 06:25 Dose: 0 mls/hr Documented by: IBRAHIMA Lactated Ringer's (Lr) 1,000 mls @ 80 mls/hr IVCONT .[id number] [facility] Last Infusion: 04/29/21 06:25 Dose: 80 mls/hr Documented by: IBRAHIMA Acetaminophen (Ofirmev) 1,000 mg in 100 mls @ 400 mls/hr IV Q6H [facility] Last Infusion: 04/29/21 09:10 Dose: 0 mls/hr Documented by: KIA Lorazepam (Lorazepam 2 Mg/Ml Vial) 0.25 mg IVPUSH TID PRN PRN Reason: Anxiety Last Admin: 04/29/21 08:32 Dose: 0.25 mg Documented by: KIA Mesalamine (Mesalamine 400 Mg Cap.Drtab.) 800 mg PO TID [facility] Last Admin: 04/29/21 07:48 Dose: Not Given Documented by: KIA Non-Admin Reason: Patient Refused Methylprednisolone Sodium Succinate (Methylprednisolone Sod Succ 125 Mg/2 Ml Vial) 60 mg IV DAILY [facility] Last Admin: 04/29/21 07:48 Dose: 60 mg Documented by: KIA Multi-Ingred Medicated Throat [place] (Throat [place], Medicated 20 Ml Bottle) 1 spray MUCOUS MEM Q2H PRN PRN Reason: throat discomfort Non-Formulary Medication (Norgestimate-Ethinyl Estradiol [Estarylla]) 1 tab PO DAILY [facility] Last Admin: 04/29/21 07:49 Dose: Not Given Documented by: KIA Non-Admin Reason: Patient Refused Omeprazole (Omeprazole 40 Mg Capsule.Dr) 40 mg PO DAILY@0630 [facility] Last Admin: 04/29/21 05:35 Dose: Not Given Documented by: IBRAHIMA Non-Admin Reason: Patient Refused Ondansetron HCl (Ondansetron Hcl 4 Mg/2 Ml Vial) 4 mg IVPUSH Q6H PRN PRN Reason: nausea Last Admin: 04/28/21 15:39 Dose: 4 mg Documented by: HARRY Pharmacy Consult (Consult Rx Perform Med Rec) 1 each MISCELLANE ONCE PRN PRN Reason: Consult order Sodium Chloride (0.9 % Sodium Chloride Flush 3 Ml Syringe) 3 ml IVFLUSH QSHIFT [facility] Last Admin: 04/29/21 07:47 Dose: Not Given Documented by: KIA Non-Admin Reason: IV Running Vancomycin HCl (Vancomycin Hcl 125 Mg Capsule) 125 mg PO QID [facility] Last Admin: 04/29/21 07:50 Dose: Not Given Documented by: KIA Non-Admin Reason: Patient Refused Zolpidem Tartrate (Zolpidem Tartrate 5 Mg Tablet) 5 mg PO BEDTIME PRN PRN Reason: Sleep Last Admin: 04/27/21 20:47 Dose: 5 mg Documented by: JAYNEQC Labs CBC & Chem 7: 04/29/21 06:14 04/29/21 06:14 Labs: Laboratory Results - last 24 hr 04/29/21 04/29/21 06:14 06:14 MCV 93.9 MCH 31.0 MCHC 33.0 RDW 13.1 Plt Count 337 MPV 9.0 L Absolute Nucleated RBC 0.000 Nucleated RBC % (auto) 0.0 Anion Gap 13 Estim Creat Clear Calc 91.3 Estimated GFR > 60 Random Glucose 103 Calcium 8.5 D Microbiology Microbiology Results: Microbiology 04/23/21 11:54 Blood Culture - Final Blood - Venous No growth after 5 days. 04/23/21 11:47 Blood Culture - Final Blood - Venous No growth after 5 days. Assessment and Plan (1) C. difficile colitis: Status: Acute (2) Small bowel obstruction: Status: Acute (3) Pancolitis: Status: Acute Plan 45-year-old female presented with abdominal pain. intractable abdominal pain 2/2 SBO Status post resection of obstructed terminal ileum with ileo colonic anastomosis to the right colon Pod 1 Reporting pain at the surgical site Still not passing gas continue iv solumedrol Continue IV fluids, antiemetics surgery appreciated, for laparotomy today Pain management Keep NG tube in place for now , monitor output GI following To remove Groves by tomorrow C diff colitis continue P.o. vancomycin and IV Flagyl in case not tolerating p.o. Anxiety attacks Start IV Ativan Insomnia Zolpidem as needed DVT prophylaxis with Lovenox reason for continued hospitalization: Post surgery status, pending improvement of her GI function and decrease of pain. Quality Stroke Does the patient have a stroke diagnosis?: No VTE Prior VTE?: No VTE Risk Level:: Medical - moderate - high VTE Device Contraindication: Treatment Not Indicated VTE Drug Contraindication: N/A - Med Ordered
[2021-04-29] MEDS: metroNIDAZOLE/NS 500 MG/100 ML PIGGYBACK 10 MG IV ×2 (13:03→21:54)
[2021-04-29 15:28] VITALS: BP 159/93; PULSE 84; RESP 18; TEMP 36.5; O2SAT 99
[2021-04-29 19:24] VITALS: BP 203/98; PULSE 81; RESP 17; TEMP 37; O2SAT 99
[2021-04-29] MEDS: ondansetron HCL 4 MG/2 ML VIAL IVPUSH (19:45)
[2021-04-30] VITALS: BP 135/86; PULSE 85; RESP 18; TEMP 36.4; O2SAT 98
[2021-04-30] MEDS: LORazepam 2 MG/ML VIAL 0.25 MG IVPUSH ×3 (00:10→17:59)
[2021-04-30] MEDS: HYDROmorphone HCl 1 MG/ML SYRINGE IVPUSH ×8 (00:15→20:28)
[2021-04-30 04:00] VITALS: BP 133/79; PULSE 69; RESP 18; TEMP 36.3; O2SAT 97
[2021-04-30] MEDS: metroNIDAZOLE/NS 500 MG/100 ML PIGGYBACK 10 MG IV ×2 (05:21→12:06)
[2021-04-30 06:07] LABS: Hematocrit 35.9 % (37.0-47.0); Hemoglobin 11.7 g/dl (12.0-16.0); Mean Corpuscular HGB Conc 32.6 g/dl (31.0-35.0); Mean Corpuscular Hemoglobin 31.2 pg (27.0-33.0); Mean Corpuscular Volume 95.7 fL (80.0-98.0); Mean Platelet Volume 8.9 fL (9.4-12.3); Platelet Count 325 X10*3/uL (160-400); Red Blood Count 3.75 X10*6/uL (4.20-5.50); Red Cell Distribution Width 13.2 % (11.0-16.0); White Blood Count 10.3 X10*3/uL (4.8-10.8)
[2021-04-30 06:28] LABS: Anion Gap 16 (12-20); Blood Urea Nitrogen 10 mg/dL (9-16); Calcium 8.6 mg/dL (8.4-10.2); Carbon Dioxide 30 mmol/L (22-29); Chloride 96 mmol/L (96-108); Creatinine Clr Calc Pharmacy 94.3; Estimated Glomerular Filt Rate > 60; Glucose Random 77 mg/dL (60-115); Potassium 3.2 mmol/L (3.3-5.1); Sodium 139 mmol/L (135-145)
[2021-04-30 07:54] VITALS: BP 146/79; PULSE 89; RESP 18; TEMP 36.5; O2SAT 99
--- NOTE | 2021-04-30 08:28 | P.PNGS_ITS ---
Subjective Subjective Date of Service: 04/30/21 <Tatyana Vincent PA-C - Last Filed: 04/30/21 08:34> 04/30/21 <Vazquez Escobar MD - Last Filed: 04/30/21 10:01> Interval history: Feels a little better this morning. Feels rumbling but denies flatus. Has not gotten OOB. Using IS every 2 hours when she gets her pain meds. <Tatyana Vincent PA-C - Last Filed: 04/30/21 08:34> Physical Exam Vital Signs: Vital Signs: Last Vital Signs Temp 97.7 F 04/30/21 07:54 Pulse 89 04/30/21 07:54 Resp 18 04/30/21 07:54 BP 146/79 H 04/30/21 07:54 Pulse Ox 99 04/30/21 07:54 BMI result Body Mass Index 21.0 <Tatyana Vincent PA-C - Last Filed: 04/30/21 08:34> Const: General: comfortable, no acute distress and alert <Tatyana Vincent PA-C - Last Filed: 04/30/21 08:34> Orientation/consciousness: patient oriented x3 <JUAN Álvarez Last Filed: 04/30/21 08:34> HEENT: Other: NGT in place <JUAN Álvarez Last Filed: 04/30/21 08:34> Resp: Effort & Inspection: normal respiratory effort <JUAN Álvarez Last Filed: 04/30/21 08:34> GI: Inspection: Yes incision (dressing clean) <Tatyana Vincent PA-C - Last Filed: 04/30/21 08:34> Palpation (GI): Soft to palpation, Tenderness to palpation present (GI) (incisional), no guarding and not rigid <JUAN Álvarez Last Filed: 04/30/21 08:34> Skin: General skin exam: no rashes or lesions noted <JUAN Álvarez Last Filed: 04/30/21 08:34> Neuro: General: patient oriented x3 <JUAN Álvarez Filed: 04/30/21 08:34> Objective Data Active Medications Dicyclomine HCl (Dicyclomine Hcl 10 Mg Capsule) 20 mg PO QID [facility] Last Admin: 04/29/21 22:01 Dose: Not Given Documented by: SKY Non-Admin Reason: Patient Refused Enoxaparin Sodium (Enoxaparin Sodium 40 Mg/0.4 Ml Syringe) 40 mg SUBCUT DAILY [facility] Last Admin: 04/28/21 07:29 Dose: Not Given Documented by: DABA Non-Admin Reason: Patient Refused Hydromorphone HCl (Hydromorphone Hcl 1 Mg/Ml Syringe) 1 mg IVPUSH Q2H PRN; Protocol PRN Reason: Pain, Severe (Pain Scale 7-10) Last Admin: 04/30/21 05:21 Dose: 1 mg Documented by: SKY Metronidazole (Flagyl) 500 mg in 100 mls @ 100 mls/hr IV Q8H [facility] Last Admin: 04/30/21 05:21 Dose: 10 mls/hr Documented by: SKY Lactated Ringer's (Lr) 1,000 mls @ 80 mls/hr IVCONT .[id number] [facility] Last Admin: 04/29/21 19:12 Dose: 80 mls/hr Documented by: SKY Acetaminophen (Ofirmev) 1,000 mg in 100 mls @ 400 mls/hr IV Q6H [facility] Last Infusion: 04/30/21 03:29 Dose: 0 mls/hr Documented by: SKY Potassium Chloride () 10 meq in 100 mls @ 100 mls/hr IV Q1H [facility] Stop: 04/30/21 09:44 Lorazepam (Lorazepam 2 Mg/Ml Vial) 0.25 mg IVPUSH TID PRN PRN Reason: Anxiety Last Admin: 04/30/21 00:10 Dose: 0.25 mg Documented by: SKY Mesalamine (Mesalamine 400 Mg Cap.Drtab.) 800 mg PO TID [facility] Last Admin: 04/29/21 22:01 Dose: Not Given Documented by: SKY Non-Admin Reason: Patient Refused Methylprednisolone Sodium Succinate (Methylprednisolone Sod Succ 125 Mg/2 Ml Vial) 60 mg IV DAILY [facility] Last Admin: 04/29/21 07:48 Dose: 60 mg Documented by: KIA Multi-Ingred Medicated Throat [place] (Throat [place], Medicated 20 Ml Bottle) 1 spray MUCOUS MEM Q2H PRN PRN Reason: throat discomfort Non-Formulary Medication (Norgestimate-Ethinyl Estradiol [Estarylla]) 1 tab PO DAILY [facility] Last Admin: 04/29/21 07:49 Dose: Not Given Documented by: KIA Non-Admin Reason: Patient Refused Omeprazole (Omeprazole 40 Mg Capsule.Dr) 40 mg PO DAILY@0630 [facility] Last Admin: 04/30/21 05:55 Dose: Not Given Documented by: SKY Non-Admin Reason: Patient Refused Ondansetron HCl (Ondansetron Hcl 4 Mg/2 Ml Vial) 4 mg IVPUSH Q6H PRN PRN Reason: nausea Last Admin: 04/29/21 19:45 Dose: 4 mg Documented by: SKY Pharmacy Consult (Consult Rx Perform Med Rec) 1 each MISCELLANE ONCE PRN PRN Reason: Consult order Sodium Chloride (0.9 % Sodium Chloride Flush 3 Ml Syringe) 3 ml IVFLUSH QSHIFT [facility] Last Admin: 04/30/21 00:21 Dose: Not Given Documented by: SKY Non-Admin Reason: IV Running Vancomycin HCl (Vancomycin Hcl 125 Mg Capsule) 125 mg PO QID [facility] Last Admin: 04/29/21 22:01 Dose: Not Given Documented by: SKY Non-Admin Reason: Patient Refused Zolpidem Tartrate (Zolpidem Tartrate 5 Mg Tablet) 5 mg PO BEDTIME PRN PRN Reason: Sleep Last Admin: 04/27/21 20:47 Dose: 5 mg Documented by: IBRAHIMA <Tatyana Vincent PA-C - Last Filed: 04/30/21 08:34> Labs CBC & Chem 7: : 04/30/21 05:42 04/30/21 05:42 <Tatyana Vincent PA-C - Last Filed: 04/30/21 08:34> Labs: Laboratory Results - last 24 hr 04/29/21 04/30/21 04/30/21 06:14 05:42 05:42 MCV 95.7 MCH 31.2 MCHC 32.6 RDW 13.2 Plt Count 325 MPV 8.9 L Absolute Nucleated RBC 0.000 Nucleated RBC % (auto) 0.0 Anion Gap 16 Estim Creat Clear Calc 94.3 Estimated GFR > 60 Random Glucose 77 Calcium 8.5 D 8.6 <Tatyana Vincent PA-C - Last Filed: 04/30/21 08:34> Procedures Date of Service Date of Service: 04/30/21 <Tatyana Vincent PA-C - Last Filed: 04/30/21 08:34> Progress Note: A&P Assessment and plan (1) Small bowel obstruction: Status: Acute <Tatyana Vincent PA-C - Last Filed: 04/30/21 08:34> (2) C. difficile colitis: Status: Acute <Tatyana Vincent PA-C - Last Filed: 04/30/21 08:34> Assessment and Plan: Says she has better pain control Denies flatus Pain appropriate to postop Looks well NG tube output still significant Plan to keep NG tube in - may have postop ileus due to prolonged small-bowel obstruction Exam benign Encouraged to get out of bed Seen and examined independently - agree with HOOD Vine[facility] <Vazquez Escobar MD - Last Filed: 04/30/21 10:01> Plan 45 year old female admitted with SBO now POD #2 s/p ex lap, resection of obstructed terminal ileum with ileocolonic anastomosis to the right colon. Doing ok post op. NGT continues with high output. Abd with appropriate post op tenderness, dressing c/d/i. D/c vivar. Encouraged OOB to chair today and amb ulation. Keep NGT in place for now until some evidence of GI function. Continue pain management. <Tatyana Vincent PA-C - Last Filed: 04/30/21 08:34> Fall Risk Details Current Medications: Current Medications Dicyclomine HCl (Dicyclomine Hcl 10 Mg Capsule) 20 mg PO QID [facility] Last Admin: 04/29/21 22:01 Dose: Not Given Documented by: Enoxaparin Sodium (Enoxaparin Sodium 40 Mg/0.4 Ml Syringe) 40 mg SUBCUT DAILY [facility] Last Admin: 04/28/21 07:29 Dose: Not Given Documented by: Hydromorphone HCl (Hydromorphone Hcl 1 Mg/Ml Syringe) 1 mg IVPUSH Q2H PRN; Protocol PRN Reason: Pain, Severe (Pain Scale 7-10) Last Admin: 04/30/21 05:21 Dose: 1 mg Documented by: Metronidazole (Flagyl) 500 mg in 100 mls @ 100 mls/hr IV Q8H [facility] Last Admin: 04/30/21 05:21 Dose: 10 mls/hr Documented by: Lactated Ringer's (Lr) 1,000 mls @ 80 mls/hr IVCONT .[id number] [facility] Last Admin: 04/29/21 19:12 Dose: 80 mls/hr Documented by: Acetaminophen (Ofirmev) 1,000 mg in 100 mls @ 400 mls/hr IV Q6H [facility] Last Infusion: 04/30/21 03:29 Dose: Infused Documented by: Potassium Chloride () 10 meq in 100 mls @ 100 mls/hr IV Q1H [facility] Stop: 04/30/21 09:44 Lorazepam (Lorazepam 2 Mg/Ml Vial) 0.25 mg IVPUSH TID PRN PRN Reason: Anxiety Last Admin: 04/30/21 00:10 Dose: 0.25 mg Documented by: Mesalamine (Mesalamine 400 Mg Cap.Drtab.) 800 mg PO TID [facility] Last Admin: 04/29/21 22:01 Dose: Not Given Documented by: Methylprednisolone Sodium Succinate (Methylprednisolone Sod Succ 125 Mg/2 Ml Vial) 60 mg IV DAILY [facility] Last Admin: 04/29/21 07:48 Dose: 60 mg Documented by: Multi-Ingred Medicated Throat [place] (Throat [place], Medicated 20 Ml Bottle) 1 spray MUCOUS MEM Q2H PRN PRN Reason: throat discomfort Non-Formulary Medication (Norgestimate-Ethinyl Estradiol [Estarylla]) 1 tab PO DAILY [facility] Last Admin: 04/29/21 07:49 Dose: Not Given Documented by: Omeprazole (Omeprazole 40 Mg Capsule.Dr) 40 mg PO DAILY@0630 [facility] Last Admin: 04/30/21 05:55 Dose: Not Given Documented by: Ondansetron HCl (Ondansetron Hcl 4 Mg/2 Ml Vial) 4 mg IVPUSH Q6H PRN PRN Reason: nausea Last Admin: 04/29/21 19:45 Dose: 4 mg Documented by: Pharmacy Consult (Consult Rx Perform Med Rec) 1 each MISCELLANE ONCE PRN PRN Reason: Consult order Sodium Chloride (0.9 % Sodium Chloride Flush 3 Ml Syringe) 3 ml IVFLUSH QSHIFT [facility] Last Admin: 04/30/21 00:21 Dose: Not Given Documented by: Vancomycin HCl (Vancomycin Hcl 125 Mg Capsule) 125 mg PO QID [facility] Last Admin: 04/29/21 22:01 Dose: Not Given Documented by: Zolpidem Tartrate (Zolpidem Tartrate 5 Mg Tablet) 5 mg PO BEDTIME PRN PRN Reason: Sleep Last Admin: 04/27/21 20:47 Dose: 5 mg Documented by: <Tatyana Vincent PA-C - Last Filed: 04/30/21 08:34> Time Spent With Patient Time: Total time spent is greater than 50% in coordination of care (as documented) at patient's floor/unit and/or counseling patient: <Tatyana Vincent PA-C - Last Filed: 04/30/21 08:34> Quality Stroke Does the patient have a stroke diagnosis?: No <Tatyana Vincent PA-C - Last Filed: 04/30/21 08:34> VTE Prior VTE?: No <Tatyana Vincent PA-C - Last Filed: 04/30/21 08:34> VTE Risk Level:: Medical - moderate - high <Tatyana Vincent PA-C - Last Filed: 04/30/21 08:34> VTE Device Contraindication: Treatment Not Indicated <Tatayna Vincent PA-C - Last Filed: 04/30/21 08:34> VTE Drug Contraindication: N/A - Med Ordered <Tatyana Vincent PA-C - Last Filed: 04/30/21 08:34>
[2021-04-30] MEDS: Lactated Ringers 1,000 ML 80 ML IVCONT (08:50)
[2021-04-30] MEDS: Potassium Chloride/H20 10 MEQ/100 ML PIGGYBACK 100 MEQ IV ×2 (08:52→12:06)
[2021-04-30] MEDS: methylPREDNISolone Sod Succ 125 MG/2 ML VIAL 60 MG IV (08:53)
[2021-04-30] MEDS: diphenhydrAMINE HCL 50 MG/ML VIAL 25 MG IVPUSH (09:46)
[2021-04-30 11:21] VITALS: BP 144/84; PULSE 82; RESP 18; TEMP 36.9; O2SAT 99
--- NOTE | 2021-04-30 12:31 | MHC.CLN ---
NUTRITION RECOMMENDATION FOR PPN. PATIENT IS DAY 7 WITH LIMITED PO INTAKE. CURRENTLY NPO WITH NGT. RECOMMEND PPN D10AA4.25 DAY 1 (04/30/21) D10AA4.25 AT 30 ML PER HOUR. PROVIDES 367 KCAL, 31 G PROTEIN. REPLETE LYTES NEEDED. DAY 2 (05/01/21) D10AA4.25 AT 45 ML PER HOUR. PROVIDES 551 KCAL, 46 G PROTEIN. CHECK TRIGLYCERIDES. REPLETE LYTES NEEDED. DAY 3 (05/02/21) D10AA4.25 AT 60 ML PER HOUR-MAX GOAL RATE. ADD LIPIDS 18 ML OF 20% LIPIDS. PROVIDES 1598KCAL (29.6 KCAL/KG); 61 G PROTEIN (1.13 G/KG). REPLETE LYTES NEEDED. MONITOR PPN TOLERANCE, LABS, AND FOLLOW FOR DIET UPGRADE.
--- NOTE | 2021-04-30 12:42 | HO.PM.IMPN ---
Subjective Subjective Date of Service: 04/30/21 Interval History: the patient was seen and evaluated this morning Laying? in bed,?having abdominal pain that is in mildly better than yesterday Reporting nausea and not passing gas yet NG tube in place Had a rash developing overnight No reported other overnight events. Systemic review: No fever, chills or weakness but have increased anxiety No chest pain, palpitation No shortness of breath or coughing reporting pain, and some nausea No urinary symptoms Chest an arms rash Physical Exam Vital Signs: Vital Signs: Last Vital Signs Temp 98.5 F 04/30/21 11:21 Pulse 82 04/30/21 11:21 Resp 18 04/30/21 11:21 BP 144/84 H 04/30/21 11:21 Pulse Ox 99 04/30/21 11:21 BMI result Body Mass Index 21.0 Const: Other: Constitutional : Alert, interactive, in pain, looks anxious and in mild distress Neck : Normal inspection, Supple Cardiovascular : RRR, S1 S2, no lower extremity edema Respiratory : Good bilateral air entry, no crackles, wheezes or rhonchi Gastrointestinal: soft, lax, decreased bowel sounds, generalized tender with superficial palpation, surgical site clean and covered with dressing Skin : Warm, Dry, allergic rash in upper extremities and chest wall Neurological : Alert & oriented x3, No focal deficit Objective Data Active Medications Dicyclomine HCl (Dicyclomine Hcl 10 Mg Capsule) 20 mg PO QID [facility] Last Admin: 04/30/21 12:03 Dose: Not Given Documented by: ALVARO Non-Admin Reason: Patient Refused Diphenhydramine HCl (Diphenhydramine Hcl 50 Mg/Ml Vial) 25 mg IVPUSH Q6H PRN PRN Reason: Itching Enoxaparin Sodium (Enoxaparin Sodium 40 Mg/0.4 Ml Syringe) 40 mg SUBCUT DAILY [facility] Last Admin: 04/28/21 07:29 Dose: Not Given Documented by: DABA Non-Admin Reason: Patient Refused Hydromorphone HCl (Hydromorphone Hcl 1 Mg/Ml Syringe) 1 mg IVPUSH Q2H PRN; Protocol PRN Reason: Pain, Severe (Pain Scale 7-10) Last Admin: 04/30/21 12:13 Dose: 1 mg Documented by: ALVARO Metronidazole (Flagyl) 500 mg in 100 mls @ 100 mls/hr IV Q8H [facility] Last Admin: 04/30/21 12:06 Dose: 10 mls/hr Documented by: ALVARO Lactated Ringer's (Lr) 1,000 mls @ 80 mls/hr IVCONT .[id number] [facility] Last Admin: 04/30/21 08:50 Dose: 80 mls/hr Documented by: ALVARO Acetaminophen (Ofirmev) 1,000 mg in 100 mls @ 400 mls/hr IV Q6H [facility] Last Infusion: 04/30/21 09:29 Dose: 0 mls/hr Documented by: ALVARO Lorazepam (Lorazepam 2 Mg/Ml Vial) 0.25 mg IVPUSH TID PRN PRN Reason: Anxiety Last Admin: 04/30/21 09:13 Dose: 0.25 mg Documented by: ALVARO Mesalamine (Mesalamine 400 Mg Cap.Drtab.) 800 mg PO TID [facility] Last Admin: 04/30/21 08:53 Dose: Not Given Documented by: ALVARO Non-Admin Reason: Patient Refused Methylprednisolone Sodium Succinate (Methylprednisolone Sod Succ 125 Mg/2 Ml Vial) 60 mg IV DAILY [facility] Last Admin: 04/30/21 08:53 Dose: 60 mg Documented by: ALVARO Multi-Ingred Medicated Throat [place] (Throat [place], Medicated 20 Ml Bottle) 1 spray MUCOUS MEM Q2H PRN PRN Reason: throat discomfort Last Admin: 04/30/21 12:06 Dose: 1 spray Documented by: ALVARO Non-Formulary Medication (Norgestimate-Ethinyl Estradiol [Estarylla]) 1 tab PO DAILY [facility] Last Admin: 04/30/21 08:54 Dose: Not Given Documented by: ALVARO Non-Admin Reason: Patient Refused Omeprazole (Omeprazole 40 Mg Capsule.Dr) 40 mg PO DAILY@0630 [facility] Last Admin: 04/30/21 05:55 Dose: Not Given Documented by: SKY Non-Admin Reason: Patient Refused Ondansetron HCl (Ondansetron Hcl 4 Mg/2 Ml Vial) 4 mg IVPUSH Q6H PRN PRN Reason: nausea Last Admin: 04/29/21 19:45 Dose: 4 mg Documented by: SKY Pharmacy Consult (Consult Rx Perform Med Rec) 1 each MISCELLANE ONCE PRN PRN Reason: Consult order Sodium Chloride (0.9 % Sodium Chloride Flush 3 Ml Syringe) 3 ml IVFLUSH QSHIFT [facility] Last Admin: 04/30/21 08:51 Dose: Not Given Documented by: ALVARO Non-Admin Reason: IV Running Vancomycin HCl (Vancomycin Hcl 125 Mg Capsule) 125 mg PO QID [facility] Last Admin: 04/30/21 08:54 Dose: Not Given Documented by: ALVARO Non-Admin Reason: Patient Refused Zolpidem Tartrate (Zolpidem Tartrate 5 Mg Tablet) 5 mg PO BEDTIME PRN PRN Reason: Sleep Last Admin: 04/27/21 20:47 Dose: 5 mg Documented by: IBRAHIMA Labs CBC & Chem 7: 04/30/21 05:42 04/30/21 05:42 Labs: Laboratory Results - last 24 hr 04/30/21 04/30/21 05:42 05:42 MCV 95.7 MCH 31.2 MCHC 32.6 RDW 13.2 Plt Count 325 MPV 8.9 L Absolute Nucleated RBC 0.000 Nucleated RBC % (auto) 0.0 Anion Gap 16 Estim Creat Clear Calc 94.3 Estimated GFR > 60 Random Glucose 77 Calcium 8.6 Assessment and Plan (1) Small bowel obstruction: Status: Acute (2) Nausea & vomiting: Status: Acute (3) C. difficile colitis: Status: Acute (4) Allergic reaction: Status: Acute Plan 45-year-old female presented with abdominal pain. intractable abdominal pain 2/2 SBO Status post resection of obstructed terminal ileum with ileo colonic anastomosis to the right colon Pod 2 Still having abdominal pain, not passing gas Continue iv solumedrol per GI recommendations Continue IV fluids, antiemetics surgery appreciated Pain management Keep NG tube in place for now , monitor output GI following To remove [place] today C diff colitis continue P.o. vancomycin and IV Flagyl while NPO skin rash Likely allergic Start Benadryl IV p.r.n. No clear source of allergy identified continue to monitor Anxiety attacks Start IV Ativan Insomnia Zolpidem as needed DVT prophylaxis with Lovenox reason for continued hospitalization: Post surgery status, pending improvement of her GI function and decrease of pain. Quality Stroke Does the patient have a stroke diagnosis?: No VTE Prior VTE?: No VTE Risk Level:: Medical - moderate - high VTE Device Contraindication: Treatment Not Indicated VTE Drug Contraindication: N/A - Med Ordered
[2021-04-30 13:34] LABS: Albumin Level 3.1 g/dL (3.5-5.0); Phosphorus 2.1 mg/dL (2.7-4.5); Triglycerides 119 mg/dL
--- NOTE | 2021-04-30 13:54 | PC.NURSE ---
Pt rash improved. No further redness or itching at this time. [place] dcd this am- pt voided 600ml. DTV #[id number]
[2021-04-30 15:03] VITALS: BMI 21.0
--- NOTE | 2021-04-30 15:25 | P.PNGI_ITS ---
Subjective Subjective Date of Service: 04/30/21 Interval History: got up from bed to commode Critical Care Time (minutes): 0 Physical Exam Vital Signs: Vital Signs: Last Vital Signs Temp 98.5 F 04/30/21 11:21 Pulse 82 04/30/21 11:21 Resp 18 04/30/21 11:21 BP 144/84 H 04/30/21 11:21 Pulse Ox 99 04/30/21 11:21 BMI result Body Mass Index 21.0 Resp: Other: clear Cardio: Other: normal s1 and s2 GI: Other: abdomen is soft Extrem: Other: no edema Objective Data Labs CBC & Chem 7: 04/30/21 05:42 04/30/21 05:42 Procedures Date of Service Date of Service: 04/30/21 Progress Note: A&P Assessment and plan (1) Small bowel obstruction: Status: Acute Assessment and Plan: path reviewed, no evidence of IBD/crohns mesalamine d/cd, steroid dose decreased should be able to taper steroids relatively quickly Reviewed pts course with Dr Appiah, [facility]/onc yesterday. Encouraged ambulation Fall Risk Details Current Medications: Current Medications Dicyclomine HCl (Dicyclomine Hcl 10 Mg Capsule) 20 mg PO QID [facility] Last Admin: 04/30/21 12:03 Dose: Not Given Documented by: Diphenhydramine HCl (Diphenhydramine Hcl 50 Mg/Ml Vial) 25 mg IVPUSH Q6H PRN PRN Reason: Itching Enoxaparin Sodium (Enoxaparin Sodium 40 Mg/0.4 Ml Syringe) 40 mg SUBCUT DAILY [facility] Last Admin: 04/28/21 07:29 Dose: Not Given Documented by: Hydromorphone HCl (Hydromorphone Hcl 1 Mg/Ml Syringe) 1 mg IVPUSH Q2H PRN; Protocol PRN Reason: Pain, Severe (Pain Scale 7-10) Last Admin: 04/30/21 14:43 Dose: 1 mg Documented by: Metronidazole (Flagyl) 500 mg in 100 mls @ 100 mls/hr IV Q8H [facility] Last Admin: 04/30/21 12:06 Dose: 10 mls/hr Documented by: Lactated Ringer's (Lr) 1,000 mls @ 80 mls/hr IVCONT .[id number] [facility] Last Admin: 04/30/21 08:50 Dose: 80 mls/hr Documented by: Acetaminophen (Ofirmev) 1,000 mg in 100 mls @ 400 mls/hr IV Q6H [facility] Last Infusion: 04/30/21 14:48 Dose: Infused Documented by: Multivitamins 10 ml/ Trace Metals 1 ml/ Amino Acids/Electrolytes/Dextrose 720 mls @ 30 mls/hr IV DAILY@1800 [facility] Stop: 05/01/21 17:59 Lorazepam (Lorazepam 2 Mg/Ml Vial) 0.25 mg IVPUSH TID PRN PRN Reason: Anxiety Last Admin: 04/30/21 09:13 Dose: 0.25 mg Documented by: Mesalamine (Mesalamine 400 Mg Cap.Drtab.) 800 mg PO TID [facility] Last Admin: 04/30/21 14:27 Dose: Not Given Documented by: Methylprednisolone Sodium Succinate (Methylprednisolone Sod Succ 125 Mg/2 Ml Vial) 60 mg IV DAILY [facility] Last Admin: 04/30/21 08:53 Dose: 60 mg Documented by: Multi-Ingred Medicated Throat [place] (Throat [place], Medicated 20 Ml Bottle) 1 spray MUCOUS MEM Q2H PRN PRN Reason: throat discomfort Last Admin: 04/30/21 12:06 Dose: 1 spray Documented by: Non-Formulary Medication (Norgestimate-Ethinyl Estradiol [Estarylla]) 1 tab PO DAILY [facility] Last Admin: 04/30/21 08:54 Dose: Not Given Documented by: Omeprazole (Omeprazole 40 Mg Capsule.Dr) 40 mg PO DAILY@0630 [facility] Last Admin: 04/30/21 05:55 Dose: Not Given Documented by: Ondansetron HCl (Ondansetron Hcl 4 Mg/2 Ml Vial) 4 mg IVPUSH Q6H PRN PRN Reason: nausea Last Admin: 04/29/21 19:45 Dose: 4 mg Documented by: Pharmacy Consult (Consult Rx Perform Med Rec) 1 each MISCELLANE ONCE PRN PRN Reason: Consult order Sodium Chloride (0.9 % Sodium Chloride Flush 3 Ml Syringe) 3 ml IVFLUSH QSHIFT [facility] Last Admin: 04/30/21 08:51 Dose: Not Given Documented by: Vancomycin HCl (Vancomycin Hcl 125 Mg Capsule) 125 mg PO QID [facility] Last Admin: 04/30/21 08:54 Dose: Not Given Documented by: Zolpidem Tartrate (Zolpidem Tartrate 5 Mg Tablet) 5 mg PO BEDTIME PRN PRN Reason: Sleep Last Admin: 04/27/21 20:47 Dose: 5 mg Documented by: Time Spent With Patient Time: Total time spent is greater than 50% in coordination of care (as documented) at patient's floor/unit and/or counseling patient: Quality Stroke Does the patient have a stroke diagnosis?: No VTE Prior VTE?: No VTE Risk Level:: Medical - moderate - high VTE Device Contraindication: Treatment Not Indicated VTE Drug Contraindication: N/A - Med Ordered
--- NOTE | 2021-04-30 15:26 | MHC.CM.PN ---
EMR REVIEWED, PLAN FOR NG TUBE IN PLACE UNTIL RETURN OF BOWEL FX, PER HOSPITALIST ANTIC PT WILL REMIAN INPT UNTIL EARLY NEXT WEEK, CM WILL CONT TO FOLLOW D/C NEEDS.
[2021-04-30 15:54] VITALS: BP 150/81; PULSE 81; RESP 16; TEMP 36.8; O2SAT 99
[2021-04-30 19:56] VITALS: BP 171/82; PULSE 88; RESP 20; TEMP 36.1; O2SAT 100
[2021-04-30] MEDS: metroNIDAZOLE/NS 500 MG/100 ML PIGGYBACK 100 MG IV (20:14)
[2021-04-30] MEDS: 0.9 % Sodium Chloride Flush 3 ML SYRINGE IVFLUSH (20:14)
[2021-05-01] VITALS (8 sets, daily range): BP systolic 137–169; BP diastolic 75–87; PULSE 73–88; RESP 17–20; TEMP 36.2–37; O2SAT 96–100
[2021-05-01] MEDS: HYDROmorphone HCl 1 MG/ML SYRINGE IVPUSH ×8 (00:14→23:48)
[2021-05-01] MEDS: LORazepam 2 MG/ML VIAL 0.25 MG IVPUSH ×3 (00:14→23:48)
[2021-05-01] MEDS: Lactated Ringers 1,000 ML 80 ML IVCONT ×2 (03:00→18:45)
[2021-05-01] MEDS: metroNIDAZOLE/NS 500 MG/100 ML PIGGYBACK 100 MG IV ×3 (04:29→21:02)
[2021-05-01] MEDS: diphenhydrAMINE HCL 50 MG/ML VIAL 25 MG IVPUSH ×2 (05:43→17:38)
[2021-05-01 06:00] LABS: Hematocrit 36.2 % (37.0-47.0); Hemoglobin 11.6 g/dl (12.0-16.0); Mean Corpuscular Hemoglobin 30.7 pg (27.0-33.0); Mean Corpuscular Volume 95.8 fL (80.0-98.0); Mean Platelet Volume 8.9 fL (9.4-12.3); Platelet Count 342 X10*3/uL (160-400); Red Blood Count 3.78 X10*6/uL (4.20-5.50); Red Cell Distribution Width 13.2 % (11.0-16.0); White Blood Count 11.3 X10*3/uL (4.8-10.8)
[2021-05-01 06:12] LABS: Anion Gap 15 (12-20); Blood Urea Nitrogen 15 mg/dL (9-16); Calcium 8.9 mg/dL (8.4-10.2); Carbon Dioxide 36 mmol/L (22-29); Chloride 95 mmol/L (96-108); Creatinine Clr Calc Pharmacy 87.1; Estimated Glomerular Filt Rate > 60; Glucose Random 148 mg/dL (60-115); Potassium 3.6 mmol/L (3.3-5.1); Sodium 142 mmol/L (135-145)
[2021-05-01 08:19] LABS: Magnesium 2.3 mg/dL (1.6-2.6); Phosphorus 2.3 mg/dL (2.7-4.5)
[2021-05-01] MEDS: methylPREDNISolone Sod Succ 40 MG/ML VIAL IV (09:23)
--- NOTE | 2021-05-01 11:31 | PM.PNGS ---
Subjective Subjective Date of Service: 05/01/21 Interval history: Patient reports incisional pain, denies flatus or bowel movement. Physical Exam Vital Signs: Vital Signs: Last Vital Signs Temp 98.2 F 05/01/21 11:28 Pulse 77 05/01/21 11:28 Resp 20 05/01/21 11:28 BP 155/78 H 05/01/21 11:28 Pulse Ox 99 05/01/21 11:28 BMI result Body Mass Index 21.0 Const: General: no acute distress Nutritional Appearance: thin Orientation/consciousness: patient oriented x3 Limitations: no limitations Resp: Effort & Inspection: normal respiratory effort GI: Other: Lower midline incision is clean, dry, and intact without erythema or discharge Skin: General skin exam: no rashes or lesions noted Neuro: General: patient oriented x3 Objective Data Active Medications Dicyclomine HCl (Dicyclomine Hcl 10 Mg Capsule) 20 mg PO QID [facility] Last Admin: 05/01/21 09:34 Dose: Not Given Documented by: MAKENZIE Non-Admin Reason: Patient Refused Diphenhydramine HCl (Diphenhydramine Hcl 50 Mg/Ml Vial) 25 mg IVPUSH Q6H PRN PRN Reason: Itching Last Admin: 05/01/21 05:43 Dose: 25 mg Documented by: KATERINA Enoxaparin Sodium (Enoxaparin Sodium 40 Mg/0.4 Ml Syringe) 40 mg SUBCUT DAILY [facility] Last Admin: 05/01/21 09:32 Dose: Not Given Documented by: MAKENZIE Non-Admin Reason: Patient Refused Hydromorphone HCl (Hydromorphone Hcl 1 Mg/Ml Syringe) 1 mg IVPUSH Q2H PRN; Protocol PRN Reason: Pain, Severe (Pain Scale 7-10) Last Admin: 05/01/21 09:22 Dose: 1 mg Documented by: MAKENZIE Metronidazole (Flagyl) 500 mg in 100 mls @ 100 mls/hr IV Q8H [facility] Last Infusion: 05/01/21 05:35 Dose: 0 mls/hr Documented by: KATERINA Lactated Ringer's (Lr) 1,000 mls @ 125 mls/hr IVCONT .Q8H [facility] Last Admin: 05/01/21 03:00 Dose: 80 mls/hr Documented by: KATERINA Acetaminophen (Ofirmev) 1,000 mg in 100 mls @ 400 mls/hr IV Q6H [facility] Last Infusion: 05/01/21 11:28 Dose: 0 mls/hr Documented by: MAKENZIE Multivitamins 10 ml/ Trace Metals 1 ml/ Amino Acids/Electrolytes/Dextrose 720 mls @ 30 mls/hr IV DAILY@1800 [facility] Stop: 05/01/21 17:59 Last Admin: 04/30/21 17:47 Dose: 30 mls/hr Documented by: ROLO Lorazepam (Lorazepam 2 Mg/Ml Vial) 0.25 mg IVPUSH Q6H PRN PRN Reason: Anxiety Methylprednisolone Sodium Succinate (Methylprednisolone Sod Succ 40 Mg/Ml Vial) 40 mg IV DAILY [facility] Last Admin: 05/01/21 09:23 Dose: 40 mg Documented by: MAKENZIE Multi-Ingred Medicated Throat [place] (Throat [place], Medicated 20 Ml Bottle) 1 spray MUCOUS MEM Q2H PRN PRN Reason: throat discomfort Last Admin: 04/30/21 12:06 Dose: 1 spray Documented by: ALVARO Non-Formulary Medication (Norgestimate-Ethinyl Estradiol [Estarylla]) 1 tab PO DAILY [facility] Last Admin: 05/01/21 09:34 Dose: Not Given Documented by: MAKENZIE Non-Admin Reason: Patient Refused Omeprazole (Omeprazole 40 Mg Capsule.) 40 mg PO DAILY@0630 [facility] Last Admin: 05/01/21 05:35 Dose: Not Given Documented by: KATERINA Non-Admin Reason: Patient Refused Ondansetron HCl (Ondansetron Hcl 4 Mg/2 Ml Vial) 4 mg IVPUSH Q6H PRN PRN Reason: nausea Last Admin: 04/29/21 19:45 Dose: 4 mg Documented by: SKY Pharmacy Consult (Consult Rx Perform Med Rec) 1 each MISCELLANE ONCE PRN PRN Reason: Consult order Sodium Chloride (0.9 % Sodium Chloride Flush 3 Ml Syringe) 3 ml IVFLUSH QSHIFT [facility] Last Admin: 05/01/21 09:25 Dose: Not Given Documented by: MAKENZIE Non-Admin Reason: IV Running Vancomycin HCl (Vancomycin Hcl 125 Mg Capsule) 125 mg PO QID [facility] Last Admin: 04/30/21 08:54 Dose: Not Given Documented by: ALVARO Non-Admin Reason: Patient Refused Zolpidem Tartrate (Zolpidem Tartrate 5 Mg Tablet) 5 mg PO BEDTIME PRN PRN Reason: Sleep Last Admin: 04/27/21 20:47 Dose: 5 mg Documented by: IBRAHIMA Labs CBC & Chem 7: 05/01/21 05:09 05/01/21 05:09 Labs: Laboratory Results - last 24 hr 04/30/21 05/01/21 05/01/21 05:42 05:09 05:09 MCV 95.8 MCH 30.7 MCHC 32.0 RDW 13.2 Plt Count 342 MPV 8.9 L Absolute Nucleated RBC 0.000 Nucleated RBC % (auto) 0.0 Anion Gap 15 Estim Creat Clear Calc 87.1 Estimated GFR > 60 Random Glucose 148 H Calcium 8.9 Phosphorus 2.1 L 2.3 L Magnesium 2.0 2.3 Albumin 3.1 L Triglycerides 119 Procedures Date of Service Date of Service: 05/01/21 Progress Note: A&P Assessment and plan (1) Small bowel obstruction: Status: Acute (2) C. difficile colitis: Status: Acute Plan 45-year-old female patient status post small-bowel resection for obstruction now with probable postoperative ileus. NG tube continues to be drained bilious fluid. Incisions are clean and intact without evidence of infection. Continue NPO, IV fluids, NG decompression. Encourage ambulation and incentive spirometry. Fall Risk Details Current Medications: Current Medications Dicyclomine HCl (Dicyclomine Hcl 10 Mg Capsule) 20 mg PO QID [facility] Last Admin: 05/01/21 09:34 Dose: Not Given Documented by: Diphenhydramine HCl (Diphenhydramine Hcl 50 Mg/Ml Vial) 25 mg IVPUSH Q6H PRN PRN Reason: Itching Last Admin: 05/01/21 05:43 Dose: 25 mg Documented by: Enoxaparin Sodium (Enoxaparin Sodium 40 Mg/0.4 Ml Syringe) 40 mg SUBCUT DAILY [facility] Last Admin: 05/01/21 09:32 Dose: Not Given Documented by: Hydromorphone HCl (Hydromorphone Hcl 1 Mg/Ml Syringe) 1 mg IVPUSH Q2H PRN; Protocol PRN Reason: Pain, Severe (Pain Scale 7-10) Last Admin: 05/01/21 09:22 Dose: 1 mg Documented by: Metronidazole (Flagyl) 500 mg in 100 mls @ 100 mls/hr IV Q8H [facility] Last Infusion: 05/01/21 05:35 Dose: Infused Documented by: Lactated Ringer's (Lr) 1,000 mls @ 125 mls/hr IVCONT .Q8H [facility] Last Admin: 05/01/21 03:00 Dose: 80 mls/hr Documented by: Acetaminophen (Ofirmev) 1,000 mg in 100 mls @ 400 mls/hr IV Q6H [facility] Last Infusion: 05/01/21 11:28 Dose: Infused Documented by: Multivitamins 10 ml/ Trace Metals 1 ml/ Amino Acids/Electrolytes/Dextrose 720 mls @ 30 mls/hr IV DAILY@1800 [facility] Stop: 05/01/21 17:59 Last Admin: 04/30/21 17:47 Dose: 30 mls/hr Documented by: Lorazepam (Lorazepam 2 Mg/Ml Vial) 0.25 mg IVPUSH Q6H PRN PRN Reason: Anxiety Methylprednisolone Sodium Succinate (Methylprednisolone Sod Succ 40 Mg/Ml Vial) 40 mg IV DAILY [facility] Last Admin: 05/01/21 09:23 Dose: 40 mg Documented by: Multi-Ingred Medicated Throat [place] (Throat [place], Medicated 20 Ml Bottle) 1 spray MUCOUS MEM Q2H PRN PRN Reason: throat discomfort Last Admin: 04/30/21 12:06 Dose: 1 spray Documented by: Non-Formulary Medication (Norgestimate-Ethinyl Estradiol [Estarylla]) 1 tab PO DAILY [facility] Last Admin: 05/01/21 09:34 Dose: Not Given Documented by: Omeprazole (Omeprazole 40 Mg Capsule.Dr) 40 mg PO DAILY@0630 [facility] Last Admin: 05/01/21 05:35 Dose: Not Given Documented by: Ondansetron HCl (Ondansetron Hcl 4 Mg/2 Ml Vial) 4 mg IVPUSH Q6H PRN PRN Reason: nausea Last Admin: 04/29/21 19:45 Dose: 4 mg Documented by: Pharmacy Consult (Consult Rx Perform Med Rec) 1 each MISCELLANE ONCE PRN PRN Reason: Consult order Sodium Chloride (0.9 % Sodium Chloride Flush 3 Ml Syringe) 3 ml IVFLUSH QSHIFT [facility] Last Admin: 05/01/21 09:25 Dose: Not Given Documented by: Vancomycin HCl (Vancomycin Hcl 125 Mg Capsule) 125 mg PO QID [facility] Last Admin: 04/30/21 08:54 Dose: Not Given Documented by: Zolpidem Tartrate (Zolpidem Tartrate 5 Mg Tablet) 5 mg PO BEDTIME PRN PRN Reason: Sleep Last Admin: 04/27/21 20:47 Dose: 5 mg Documented by: Time Spent With Patient Time: Total time spent is greater than 50% in coordination of care (as documented) at patient's floor/unit and/or counseling patient: Quality Stroke Does the patient have a stroke diagnosis?: No VTE Prior VTE?: No VTE Risk Level:: Medical - moderate - high VTE Device Contraindication: Treatment Not Indicated VTE Drug Contraindication: N/A - Med Ordered
--- NOTE | 2021-05-01 11:44 | P.PNIM_ITS ---
Subjective Subjective Date of Service: 05/01/21 Interval History: the patient was seen and evaluated this morning Laying? in bed,?having abdominal pain that is improving slowly but still re quiring iv dilaudid Reporting nausea and not passing gas yet NG tube in place rash responded to No reported other overnight events. Systemic review: No fever, chills or weakness but have increased anxiety No chest pain, palpitation No shortness of breath or coughing reporting pain, and some nausea No urinary symptoms Rash improving Physical Exam Vital Signs: Vital Signs: Last Vital Signs Temp 98.2 F 05/01/21 11:28 Pulse 77 05/01/21 11:28 Resp 20 05/01/21 11:28 BP 155/78 H 05/01/21 11:28 Pulse Ox 99 05/01/21 11:28 BMI result Body Mass Index 21.0 Const: Other: Constitutional : Alert, interactive, in pain, looks anxious and in mild distress Neck : Normal inspection, Supple Cardiovascular : RRR, S1 S2, no lower extremity edema Respiratory : Good bilateral air entry, no crackles, wheezes or rhonchi Gastrointestinal: soft, lax, decreased bowel sounds, generalized tender with s uperficial palpation, surgical site clean and covered with dressing Skin : Warm, Dry, rash decreased Neurological : Alert & oriented x3, No focal deficit Objective Data Active Medications Dicyclomine HCl (Dicyclomine Hcl 10 Mg Capsule) 20 mg PO QID [facility] Last Admin: 05/01/21 09:34 Dose: Not Given Documented by: MAKENZIE Non-Admin Reason: Patient Refused Diphenhydramine HCl (Diphenhydramine Hcl 50 Mg/Ml Vial) 25 mg IVPUSH Q6H PRN PRN Reason: Itching Last Admin: 05/01/21 05:43 Dose: 25 mg Documented by: KATERINA Enoxaparin Sodium (Enoxaparin Sodium 40 Mg/0.4 Ml Syringe) 40 mg SUBCUT DAILY [facility] Last Admin: 05/01/21 09:32 Dose: Not Given Documented by: MAKENZIE Non-Admin Reason: Patient Refused Hydromorphone HCl (Hydromorphone Hcl 1 Mg/Ml Syringe) 1 mg IVPUSH Q2H PRN; Protocol PRN Reason: Pain, Severe (Pain Scale 7-10) Last Admin: 05/01/21 11:31 Dose: 1 mg Documented by: MAKENZIE Metronidazole (Flagyl) 500 mg in 100 mls @ 100 mls/hr IV Q8H [facility] Last Infusion: 05/01/21 05:35 Dose: 0 mls/hr Documented by: KATERINA Lactated Ringer's (Lr) 1,000 mls @ 125 mls/hr IVCONT .Q8H [facility] Last Admin: 05/01/21 03:00 Dose: 80 mls/hr Documented by: KATERINA Acetaminophen (Ofirmev) 1,000 mg in 100 mls @ 400 mls/hr IV Q6H [facility] Last Infusion: 05/01/21 11:28 Dose: 0 mls/hr Documented by: MAKENZIE Multivitamins 10 ml/ Trace Metals 1 ml/ Amino Acids/Electrolytes/Dextrose 720 mls @ 30 mls/hr IV DAILY@1800 [facility] Stop: 05/01/21 17:59 Last Admin: 04/30/21 17:47 Dose: 30 mls/hr Documented by: ROLO Amino Acids/Electrolytes/Dextrose (Clinimix E 4.25%-10%) 1,080 mls @ 45 mls/hr IV DAILY@1800 [facility] Stop: 05/02/21 17:59 Lorazepam (Lorazepam 2 Mg/Ml Vial) 0.25 mg IVPUSH Q6H PRN PRN Reason: Anxiety Methylprednisolone Sodium Succinate (Methylprednisolone Sod Succ 40 Mg/Ml Vial) 40 mg IV DAILY [facility] Last Admin: 05/01/21 09:23 Dose: 40 mg Documented by: MAKENZIE Multi-Ingred Medicated Throat [place] (Throat [place], Medicated 20 Ml Bottle) 1 spray MUCOUS MEM Q2H PRN PRN Reason: throat discomfort Last Admin: 04/30/21 12:06 Dose: 1 spray Documented by: ALVARO Non-Formulary Medication (Norgestimate-Ethinyl Estradiol [Estarylla]) 1 tab PO DAILY [facility] Last Admin: 05/01/21 09:34 Dose: Not Given Documented by: MAKENZIE Non-Admin Reason: Patient Refused Omeprazole (Omeprazole 40 Mg Devin.) 40 mg PO DAILY@0630 [facility] Last Admin: 05/01/21 05:35 Dose: Not Given Documented by: KATERINA Non-Admin Reason: Patient Refused Ondansetron HCl (Ondansetron Hcl 4 Mg/2 Ml Vial) 4 mg IVPUSH Q6H PRN PRN Reason: nausea Last Admin: 04/29/21 19:45 Dose: 4 mg Documented by: SKY Pharmacy Consult (Consult Rx Perform Med Rec) 1 each MISCELLANE ONCE PRN PRN Reason: Consult order Sodium Chloride (0.9 % Sodium Chloride Flush 3 Ml Syringe) 3 ml IVFLUSH QSHIFT [facility] Last Admin: 05/01/21 09:25 Dose: Not Given Documented by: MAKENZIE Non-Admin Reason: IV Running Vancomycin HCl (Vancomycin Hcl 125 Mg Capsule) 125 mg PO QID [facility] Last Admin: 04/30/21 08:54 Dose: Not Given Documented by: ALVARO Non-Admin Reason: Patient Refused Zolpidem Tartrate (Zolpidem Tartrate 5 Mg Tablet) 5 mg PO BEDTIME PRN PRN Reason: Sleep Last Admin: 04/27/21 20:47 Dose: 5 mg Documented by: IBRAHIMA Labs CBC & Chem 7: 05/01/21 05:09 05/01/21 05:09 Labs: Laboratory Results - last 24 hr 04/30/21 05/01/21 05/01/21 05:42 05:09 05:09 MCV 95.8 MCH 30.7 MCHC 32.0 RDW 13.2 Plt Count 342 MPV 8.9 L Absolute Nucleated RBC 0.000 Nucleated RBC % (auto) 0.0 Anion Gap 15 Estim Creat Clear Calc 87.1 Estimated GFR > 60 Random Glucose 148 H Calcium 8.9 Phosphorus 2.1 L 2.3 L Magnesium 2.0 2.3 Albumin 3.1 L Triglycerides 119 Assessment and Plan (1) Allergic reaction: Status: Acute (2) Small bowel obstruction: Status: Acute (3) Nausea & vomiting: Status: Acute (4) C. difficile colitis: Status: Acute Plan 45-year-old female presented with abdominal pain. intractable abdominal pain 2/2 SBO Status post resection of obstructed terminal ileum with ileo colonic anastomosis to the right colon Pod 3 Still having abdominal pain, not passing gas Continue iv solumedrol per GI recommendations Continue IV fluids, antiemetics surgery appreciated Pain management Keep NG tube in place for now , monitor output GI following C diff colitis continue P.o. vancomycin and IV Flagyl while NPO skin rash Likely allergic, improved Benadryl IV p.r.n. No clear source of allergy identified continue to monitor Anxiety attacks Continue IV Ativan as needed Insomnia Zolpidem as needed DVT prophylaxis with Lovenox reason for continued hospitalization: Post surgery status, pending improvement of her GI function and decrease of pain. Quality Stroke Does the patient have a stroke diagnosis?: No VTE Prior VTE?: No VTE Risk Level:: Medical - moderate - high VTE Device Contraindication: Treatment Not Indicated VTE Drug Contraindication: N/A - Med Ordered
[2021-05-01] MEDS: 0.9 % Sodium Chloride Flush 3 ML SYRINGE IVFLUSH (21:03)
[2021-05-02 03:18] VITALS: BP 141/80; PULSE 78; RESP 18; TEMP 36.5; O2SAT 98
[2021-05-02] MEDS: metroNIDAZOLE/NS 500 MG/100 ML PIGGYBACK 100 MG IV ×3 (04:49→20:21)
[2021-05-02] MEDS: diphenhydrAMINE HCL 50 MG/ML VIAL 25 MG IVPUSH (05:07)
[2021-05-02 06:04] LABS: Hematocrit 33.3 % (37.0-47.0); Hemoglobin 10.7 g/dl (12.0-16.0); Mean Corpuscular HGB Conc 32.1 g/dl (31.0-35.0); Mean Corpuscular Hemoglobin 30.7 pg (27.0-33.0); Mean Corpuscular Volume 95.7 fL (80.0-98.0); Mean Platelet Volume 8.9 fL (9.4-12.3); Platelet Count 312 X10*3/uL (160-400); Red Blood Count 3.48 X10*6/uL (4.20-5.50); White Blood Count 8.4 X10*3/uL (4.8-10.8)
[2021-05-02 06:26] LABS: Anion Gap 10 (12-20); Blood Urea Nitrogen 15 mg/dL (9-16); Calcium 8.5 mg/dL (8.4-10.2); Carbon Dioxide 35 mmol/L (22-29); Chloride 99 mmol/L (96-108); Creatinine Clr Calc Pharmacy 106.5; Estimated Glomerular Filt Rate > 60; Glucose Random 139 mg/dL (60-115); Potassium 2.9 mmol/L (3.3-5.1); Sodium 141 mmol/L (135-145)
[2021-05-02] MEDS: HYDROmorphone HCl 1 MG/ML SYRINGE IVPUSH ×5 (06:37→19:50)
[2021-05-02 08:00] VITALS: BP 160/97; PULSE 75; RESP 18; TEMP 37; O2SAT 99
[2021-05-02 08:07] LABS: Albumin Level 3.1 g/dL (3.5-5.0); Magnesium 2.1 mg/dL (1.6-2.6)
[2021-05-02 08:23] LABS: Phosphorus 2.2 mg/dL (2.7-4.5)
[2021-05-02] MEDS: 0.9 % Sodium Chloride Flush 3 ML SYRINGE IVFLUSH ×2 (08:53→16:00)
[2021-05-02] MEDS: Potassium Chloride/H20 10 MEQ/100 ML PIGGYBACK 100 MEQ IV ×2 (08:54→11:09)
[2021-05-02] MEDS: LORazepam 2 MG/ML VIAL 0.25 MG IVPUSH ×3 (09:01→20:21)
[2021-05-02] MEDS: methylPREDNISolone Sod Succ 40 MG/ML VIAL IV (09:11)
[2021-05-02] MEDS: Lactated Ringers 1,000 ML 80 ML IVCONT ×2 (09:42→19:01)
--- NOTE | 2021-05-02 09:57 | PM.PNGS ---
Subjective Subjective Date of Service: 05/02/21 Interval history: Patient reports passing flatus this morning, denies nausea or vomiting. No BM yet. Incisional pain is improved today Physical Exam Vital Signs: Vital Signs: Last Vital Signs Temp 98.6 F 05/02/21 08:00 Pulse 75 05/02/21 08:00 Resp 18 05/02/21 08:00 BP 160/97 H 05/02/21 08:00 Pulse Ox 99 05/02/21 08:00 BMI result Body Mass Index 21.0 Const: General: comfortable and no acute distress Nutritional Appearance: thin Orientation/consciousness: patient oriented x3 Limitations: no limitations HEENT: Other: NG tube in place Head: Yes normocephalic and Yes atraumatic Resp: Other: Breathing comfortably on room air, no respiratory distress GI: Other: Incision in the lower midline is clean, dry, and intact without redness or discharge. Abdomen is softer with mild santos-incisional tenderness. Tympanic to percussion. Skin: General skin exam: no rashes or lesions noted Neuro: General: patient oriented x3 Extrem: General: Yes no clubbing, cyanosis or edema Objective Data Active Medications Dicyclomine HCl (Dicyclomine Hcl 10 Mg Capsule) 20 mg PO QID [facility] Last Admin: 05/02/21 08:54 Dose: Not Given Documented by: KATERINA Non-Admin Reason: Patient Refused Diphenhydramine HCl (Diphenhydramine Hcl 50 Mg/Ml Vial) 25 mg IVPUSH Q6H PRN PRN Reason: Itching Last Admin: 05/02/21 05:07 Dose: 25 mg Documented by: KATERINA Enoxaparin Sodium (Enoxaparin Sodium 40 Mg/0.4 Ml Syringe) 40 mg SUBCUT DAILY [facility] Last Admin: 05/02/21 08:54 Dose: Not Given Documented by: KATERINA Non-Admin Reason: Patient Refused Hydromorphone HCl (Hydromorphone Hcl 1 Mg/Ml Syringe) 1 mg IVPUSH Q2H PRN; Protocol PRN Reason: Pain, Severe (Pain Scale 7-10) Last Admin: 05/02/21 08:52 Dose: 1 mg Documented by: KATERINA Metronidazole (Flagyl) 500 mg in 100 mls @ 100 mls/hr IV Q8H [facility] Last Infusion: 05/02/21 06:22 Dose: 0 mls/hr Documented by: KATERINA Lactated Ringer's (Lr) 1,000 mls @ 125 mls/hr IVCONT .Q8H [facility] Last Admin: 05/02/21 09:42 Dose: 80 mls/hr Documented by: KATERINA Acetaminophen (Ofirmev) 1,000 mg in 100 mls @ 400 mls/hr IV Q6H [facility] Last Admin: 05/02/21 08:53 Dose: 400 mls/hr Documented by: KATERINA Amino Acids/Electrolytes/Dextrose (Clinimix E 4.25%-10%) 1,080 mls @ 45 mls/hr IV DAILY@1800 [facility] Stop: 05/02/21 17:59 Last Admin: 05/01/21 18:45 Dose: 45 mls/hr Documented by: MAKENZIE Potassium Chloride () 10 meq in 100 mls @ 100 mls/hr IV Q1H [facility] Stop: 05/02/21 12:14 Last Admin: 05/02/21 08:54 Dose: 100 mls/hr Documented by: KATERINA Lorazepam (Lorazepam 2 Mg/Ml Vial) 0.25 mg IVPUSH Q6H PRN PRN Reason: Anxiety Last Admin: 05/02/21 09:01 Dose: 0.25 mg Documented by: KATERINA Methylprednisolone Sodium Succinate (Methylprednisolone Sod Succ 40 Mg/Ml Vial) 40 mg IV DAILY [facility] Last Admin: 05/02/21 09:11 Dose: 40 mg Documented by: KATERINA Multi-Ingred Medicated Throat [place] (Throat [place], Medicated 20 Ml Bottle) 1 spray MUCOUS MEM Q2H PRN PRN Reason: throat discomfort Last Admin: 04/30/21 12:06 Dose: 1 spray Documented by: ALVARO Non-Formulary Medication (Norgestimate-Ethinyl Estradiol [Estarylla]) 1 tab PO DAILY [facility] Last Admin: 05/02/21 09:08 Dose: Not Given Documented by: KATERINA Non-Admin Reason: Patient Refused Omeprazole (Omeprazole 40 Mg Capsule.) 40 mg PO DAILY@0630 [facility] Last Admin: 05/02/21 05:13 Dose: Not Given Documented by: KATERINA Non-Admin Reason: Patient Refused Ondansetron HCl (Ondansetron Hcl 4 Mg/2 Ml Vial) 4 mg IVPUSH Q6H PRN PRN Reason: nausea Last Admin: 04/29/21 19:45 Dose: 4 mg Documented by: SKY Pharmacy Consult (Consult Rx Perform Med Rec) 1 each MISCELLANE ONCE PRN PRN Reason: Consult order Sodium Chloride (0.9 % Sodium Chloride Flush 3 Ml Syringe) 3 ml IVFLUSH QSHIFT [facility] Last Admin: 05/02/21 08:53 Dose: 3 ml Documented by: KATERINA Vancomycin HCl (Vancomycin Hcl 125 Mg Capsule) 125 mg PO QID [facility] Last Admin: 04/30/21 08:54 Dose: Not Given Documented by: ALVARO Non-Admin Reason: Patient Refused Zolpidem Tartrate (Zolpidem Tartrate 5 Mg Tablet) 5 mg PO BEDTIME PRN PRN Reason: Sleep Last Admin: 04/27/21 20:47 Dose: 5 mg Documented by: IBRAHIMA Labs CBC & Chem 7: 05/02/21 05:23 05/02/21 05:23 Labs: Laboratory Results - last 24 hr 05/02/21 05/02/21 05:23 05:23 MCV 95.7 MCH 30.7 MCHC 32.1 RDW 13.0 Plt Count 312 MPV 8.9 L Absolute Nucleated RBC 0.000 Nucleated RBC % (auto) 0.0 Anion Gap 10 L Estim Creat Clear Calc 106.5 Estimated GFR > 60 Random Glucose 139 H Calcium 8.5 Phosphorus 2.2 L Magnesium 2.1 Albumin 3.1 L Procedures Date of Service Date of Service: 05/02/21 Progress Note: A&P Assessment and plan (1) Small bowel obstruction: Status: Acute Plan 45-year-old female patient status post small-bowel resection for obstruction with resolving postoperative ileus, now passing flatus. NG tube continues to be drained bilious fluid.? Incisions are clean and intact without evidence of infection.? Continue NPO, IV fluids, NG decompression.? Continue ambulation and incentive spirometry. Fall Risk Details Current Medications: Current Medications Dicyclomine HCl (Dicyclomine Hcl 10 Mg Capsule) 20 mg PO QID [facility] Last Admin: 03/27/22 08:54 Dose: Not Given Documented by: Diphenhydramine HCl (Diphenhydramine Hcl 50 Mg/Ml Vial) 25 mg IVPUSH Q6H PRN PRN Reason: Itching Last Admin: 05/02/21 05:07 Dose: 25 mg Documented by: Enoxaparin Sodium (Enoxaparin Sodium 40 Mg/0.4 Ml Syringe) 40 mg SUBCUT DAILY [facility] Last Admin: 05/02/21 08:54 Dose: Not Given Documented by: Hydromorphone HCl (Hydromorphone Hcl 1 Mg/Ml Syringe) 1 mg IVPUSH Q2H PRN; Protocol PRN Reason: Pain, Severe (Pain Scale 7-10) Last Admin: 05/02/21 08:52 Dose: 1 mg Documented by: Metronidazole (Flagyl) 500 mg in 100 mls @ 100 mls/hr IV Q8H [facility] Last Infusion: 05/02/21 06:22 Dose: Infused Documented by: Lactated Ringer's (Lr) 1,000 mls @ 125 mls/hr IVCONT .Q8H [facility] Last Admin: 05/02/21 09:42 Dose: 80 mls/hr Documented by: Acetaminophen (Ofirmev) 1,000 mg in 100 mls @ 400 mls/hr IV Q6H [facility] Last Admin: 05/02/21 08:53 Dose: 400 mls/hr Documented by: Amino Acids/Electrolytes/Dextrose (Clinimix E 4.25%-10%) 1,080 mls @ 45 mls/hr IV DAILY@1800 [facility] Stop: 05/02/21 17:59 Last Admin: 05/01/21 18:45 Dose: 45 mls/hr Documented by: Potassium Chloride () 10 meq in 100 mls @ 100 mls/hr IV Q1H [facility] Stop: 05/02/21 12:14 Last Admin: 05/02/21 08:54 Dose: 100 mls/hr Documented by: Lorazepam (Lorazepam 2 Mg/Ml Vial) 0.25 mg IVPUSH Q6H PRN PRN Reason: Anxiety Last Admin: 05/02/21 09:01 Dose: 0.25 mg Documented by: Methylprednisolone Sodium Succinate (Methylprednisolone Sod Succ 40 Mg/Ml Vial) 40 mg IV DAILY [facility] Last Admin: 05/02/21 09:11 Dose: 40 mg Documented by: Multi-Ingred Medicated Throat [place] (Throat [place], Medicated 20 Ml Bottle) 1 spray MUCOUS MEM Q2H PRN PRN Reason: throat discomfort Last Admin: 04/30/21 12:06 Dose: 1 spray Documented by: Non-Formulary Medication (Norgestimate-Ethinyl Estradiol [Estarylla]) 1 tab PO DAILY [facility] Last Admin: 05/02/21 09:08 Dose: Not Given Documented by: Omeprazole (Omeprazole 40 Mg Capsule.Dr) 40 mg PO DAILY@0630 [facility] Last Admin: 05/02/21 05:13 Dose: Not Given Documented by: Ondansetron HCl (Ondansetron Hcl 4 Mg/2 Ml Vial) 4 mg IVPUSH Q6H PRN PRN Reason: nausea Last Admin: 04/29/21 19:45 Dose: 4 mg Documented by: Pharmacy Consult (Consult Rx Perform Med Rec) 1 each MISCELLANE ONCE PRN PRN Reason: Consult order Sodium Chloride (0.9 % Sodium Chloride Flush 3 Ml Syringe) 3 ml IVFLUSH QSHIFT [facility] Last Admin: 05/02/21 08:53 Dose: 3 ml Documented by: Vancomycin HCl (Vancomycin Hcl 125 Mg Capsule) 125 mg PO QID [facility] Last Admin: 04/30/21 08:54 Dose: Not Given Documented by: Zolpidem Tartrate (Zolpidem Tartrate 5 Mg Tablet) 5 mg PO BEDTIME PRN PRN Reason: Sleep Last Admin: 04/27/21 20:47 Dose: 5 mg Documented by: Time Spent With Patient Time: Total time spent is greater than 50% in coordination of care (as documented) at patient's floor/unit and/or counseling patient: Quality Stroke Does the patient have a stroke diagnosis?: No VTE Prior VTE?: No VTE Risk Level:: Medical - moderate - high VTE Device Contraindication: Treatment Not Indicated VTE Drug Contraindication: N/A - Med Ordered
--- NOTE | 2021-05-02 10:58 | HO.PM.IMPN ---
Subjective Subjective Date of Service: 05/02/21 Interval History: the patient was seen and evaluated this morning Laying? in bed, abdominal pain improving on daily basis Passed gas this morning NG tube in place and still decompressing No reported other overnight events. Systemic review: No fever, chills and feels better No chest pain, palpitation No shortness of breath or coughing reporting pain, and passing gas No urinary symptoms Rash improving Physical Exam Vital Signs: Vital Signs: Last Vital Signs Temp 98.6 F 05/02/21 08:00 Pulse 75 05/02/21 08:00 Resp 18 05/02/21 08:00 BP 160/97 H 05/02/21 08:00 Pulse Ox 99 05/02/21 08:00 BMI result Body Mass Index 21.0 Const: Other: Constitutional : Alert, interactive, less anxious and not distressed Neck : Normal inspection, Supple Cardiovascular : RRR, S1 S2, no lower extremity edema Respiratory : Good bilateral air entry, no crackles, wheezes or rhonchi Gastrointestinal: soft, lax, decreased bowel sounds, generalized tender with superficial palpation, surgical site clean and covered with dressing Skin : Warm, Dry, rash resolved Neurological : Alert & oriented x3, No focal deficit Objective Data Active Medications Dicyclomine HCl (Dicyclomine Hcl 10 Mg Capsule) 20 mg PO QID [facility] Last Admin: 05/02/21 08:54 Dose: Not Given Documented by: KATERINA Non-Admin Reason: Patient Refused Diphenhydramine HCl (Diphenhydramine Hcl 50 Mg/Ml Vial) 25 mg IVPUSH Q6H PRN PRN Reason: Itching Last Admin: 05/02/21 05:07 Dose: 25 mg Documented by: KATERINA Enoxaparin Sodium (Enoxaparin Sodium 40 Mg/0.4 Ml Syringe) 40 mg SUBCUT DAILY [facility] Last Admin: 05/02/21 08:54 Dose: Not Given Documented by: KATERINA Non-Admin Reason: Patient Refused Hydromorphone HCl (Hydromorphone Hcl 1 Mg/Ml Syringe) 1 mg IVPUSH Q2H PRN; Protocol PRN Reason: Pain, Severe (Pain Scale 7-10) Last Admin: 05/02/21 08:52 Dose: 1 mg Documented by: KATERINA Metronidazole (Flagyl) 500 mg in 100 mls @ 100 mls/hr IV Q8H [facility] Last Infusion: 05/02/21 06:22 Dose: 0 mls/hr Documented by: KATERINA Lactated Ringer's (Lr) 1,000 mls @ 125 mls/hr IVCONT .Q8H [facility] Last Admin: 05/02/21 09:42 Dose: 80 mls/hr Documented by: KATERINA Acetaminophen (Ofirmev) 1,000 mg in 100 mls @ 400 mls/hr IV Q6H [facility] Last Admin: 05/02/21 08:53 Dose: 400 mls/hr Documented by: KATERINA Amino Acids/Electrolytes/Dextrose (Clinimix E 4.25%-10%) 1,080 mls @ 45 mls/hr IV DAILY@1800 [facility] Stop: 05/02/21 17:59 Last Admin: 05/01/21 18:45 Dose: 45 mls/hr Documented by: MAKENZIE Potassium Phosphate (Kphos) 15 mmol in 250 mls @ 62.5 mls/hr IV ONCE ONE Stop: 05/02/21 14:59 Lorazepam (Lorazepam 2 Mg/Ml Vial) 0.25 mg IVPUSH Q6H PRN PRN Reason: Anxiety Last Admin: 05/02/21 09:01 Dose: 0.25 mg Documented by: KATERINA Methylprednisolone Sodium Succinate (Methylprednisolone Sod Succ 40 Mg/Ml Vial) 40 mg IV DAILY [facility] Last Admin: 05/02/21 09:11 Dose: 40 mg Documented by: KATERINA Multi-Ingred Medicated Throat [place] (Throat Richards, Medicated 20 Ml Bottle) 1 spray MUCOUS MEM Q2H PRN PRN Reason: throat discomfort Last Admin: 04/30/21 12:06 Dose: 1 spray Documented by: ALVARO Non-Formulary Medication (Norgestimate-Ethinyl Estradiol [Estarylla]) 1 tab PO DAILY [facility] Last Admin: 05/02/21 09:08 Dose: Not Given Documented by: KATERINA Non-Admin Reason: Patient Refused Omeprazole (Omeprazole 40 Mg Capsule.) 40 mg PO DAILY@0630 [facility] Last Admin: 05/02/21 05:13 Dose: Not Given Documented by: KATERINA Non-Admin Reason: Patient Refused Ondansetron HCl (Ondansetron Hcl 4 Mg/2 Ml Vial) 4 mg IVPUSH Q6H PRN PRN Reason: nausea Last Admin: 04/29/21 19:45 Dose: 4 mg Documented by: SKY Pharmacy Consult (Consult Rx Perform Med Rec) 1 each MISCELLANE ONCE PRN PRN Reason: Consult order Sodium Chloride (0.9 % Sodium Chloride Flush 3 Ml Syringe) 3 ml IVFLUSH QSHIFT [facility] Last Admin: 05/02/21 08:53 Dose: 3 ml Documented by: MANUELITOILHarvey Vancomycin HCl (Vancomycin Hcl 125 Mg Capsule) 125 mg PO QID [facility] Last Admin: 04/30/21 08:54 Dose: Not Given Documented by: ALVARO Non-Admin Reason: Patient Refused Zolpidem Tartrate (Zolpidem Tartrate 5 Mg Tablet) 5 mg PO BEDTIME PRN PRN Reason: Sleep Last Admin: 04/27/21 20:47 Dose: 5 mg Documented by: IBRAHIMA Labs CBC & Chem 7: 05/02/21 05:23 05/02/21 05:23 Labs: Laboratory Results - last 24 hr 05/02/21 05/02/21 05:23 05:23 MCV 95.7 MCH 30.7 MCHC 32.1 RDW 13.0 Plt Count 312 MPV 8.9 L Absolute Nucleated RBC 0.000 Nucleated RBC % (auto) 0.0 Anion Gap 10 L Estim Creat Clear Calc 106.5 Estimated GFR > 60 Random Glucose 139 H Calcium 8.5 Phosphorus 2.2 L Magnesium 2.1 Albumin 3.1 L Assessment and Plan (1) Small bowel obstruction: Status: Acute (2) Nausea & vomiting: Status: Acute (3) C. difficile colitis: Status: Acute Plan 45-year-old female presented with abdominal pain. intractable abdominal pain 2/2 SBO Status post resection of obstructed terminal ileum with ileo colonic anastomosis to the right colon Pod 4 Abdominal pain improving, passing gas Continue iv solumedrol per GI recommendations, to taper down quickly Continue IV fluids, antiemetics surgery input appreciated Pain management Keep NG tube in place for now , monitor output GI following C diff colitis continue P.o. vancomycin and IV Flagyl while NPO skin rash Resolved Benadryl IV p.r.n. continue to monitor Anxiety attacks Continue IV Ativan as needed Insomnia Zolpidem as needed DVT prophylaxis with Lovenox reason for continued hospitalization: Post surgery status, pending improvement of her GI function and decrease of pain. Quality Stroke Does the patient have a stroke diagnosis?: No VTE Prior VTE?: No VTE Risk Level:: Medical - moderate - high VTE Device Contraindication: Treatment Not Indicated VTE Drug Contraindication: N/A - Med Ordered
[2021-05-02 11:52] VITALS: BP 163/92; PULSE 80; RESP 18; TEMP 37.1; O2SAT 96
[2021-05-02] MEDS: Potassium Phosphate/NS 15 MMOL/250 ML PLAST..BAG 62.5 MMOL IV (14:36)
[2021-05-02 15:11] VITALS: BP 154/88; PULSE 88; RESP 17; TEMP 36.6; O2SAT 97
[2021-05-02] MEDS: Fat Emulsions 20% 250 ML 18 ML IVCONT (19:02)
[2021-05-03] VITALS: BP 146/72; PULSE 85; RESP 17; TEMP 36.9; O2SAT 96
[2021-05-03] MEDS: diphenhydrAMINE HCL 50 MG/ML VIAL 25 MG IVPUSH ×2 (00:21→22:11)
[2021-05-03] MEDS: HYDROmorphone HCl 1 MG/ML SYRINGE IVPUSH ×6 (00:21→23:05)
[2021-05-03 04:00] VITALS: BP 154/83; PULSE 86; RESP 17; TEMP 36.9; O2SAT 96
[2021-05-03] MEDS: Lactated Ringers 1,000 ML 80 ML IVCONT ×4 (04:09→21:58)
[2021-05-03] MEDS: metroNIDAZOLE/NS 500 MG/100 ML PIGGYBACK 100 MG IV ×3 (04:46→21:12)
[2021-05-03] MEDS: Fat Emulsions 20% 250 ML 18 ML IVCONT ×2 (05:31→18:08)
[2021-05-03 06:29] LABS: Hematocrit 35.4 % (37.0-47.0); Hemoglobin 11.6 g/dl (12.0-16.0); Mean Corpuscular HGB Conc 32.8 g/dl (31.0-35.0); Mean Corpuscular Volume 94.7 fL (80.0-98.0); Mean Platelet Volume 8.8 fL (9.4-12.3); Platelet Count 332 X10*3/uL (160-400); Red Blood Count 3.74 X10*6/uL (4.20-5.50); Red Cell Distribution Width 12.8 % (11.0-16.0); White Blood Count 8.9 X10*3/uL (4.8-10.8)
[2021-05-03 06:44] LABS: Anion Gap 12 (12-20); Blood Urea Nitrogen 12 mg/dL (9-16); Calcium 8.5 mg/dL (8.4-10.2); Carbon Dioxide 31 mmol/L (22-29); Chloride 100 mmol/L (96-108); Creatinine Clr Calc Pharmacy 106.5; Estimated Glomerular Filt Rate > 60; Glucose Random 128 mg/dL (60-115); Potassium 3.2 mmol/L (3.3-5.1); Sodium 140 mmol/L (135-145)
[2021-05-03] MEDS: LORazepam 2 MG/ML VIAL 0.25 MG IVPUSH ×3 (07:16→21:13)
[2021-05-03] MEDS: 0.9 % Sodium Chloride Flush 3 ML SYRINGE IVFLUSH ×2 (07:16→18:09)
[2021-05-03 08:00] VITALS: BP 158/101; PULSE 88; RESP 18; TEMP 36.3; O2SAT 98
[2021-05-03] MEDS: methylPREDNISolone Sod Succ 40 MG/ML VIAL 30 MG IV (08:16)
[2021-05-03 10:04] LABS: Phosphorus 2.8 mg/dL (2.7-4.5)
--- NOTE | 2021-05-03 10:17 | P.PNGS_ITS ---
Subjective Subjective Date of Service: 05/03/21 <Tatyana Vincent PA-C - Last Filed: 05/03/21 10:20> 05/03/21 <Vazquez Escobar MD - Last Filed: 05/03/21 10:59> Interval history: Feels better. Passing flatus and had a bowel movement this morning. INcisional pain improving. <Tatyana Vincent PA-C - Last Filed: 05/03/21 10:20> Physical Exam Vital Signs: Vital Signs: Last Vital Signs Temp 97.3 F 05/03/21 08:00 Pulse 88 05/03/21 08:00 Resp 18 05/03/21 08:00 BP 158/101 H 05/03/21 08:00 Pulse Ox 98 05/03/21 08:00 BMI result Body Mass Index 21.0 <Tatyana Vincent PA-C - Last Filed: 05/03/21 10:20> Const: General: healthy appearing, comfortable and no acute distress <Tatyana Vincent PA-C - Last Filed: 05/03/21 10:20> Orientation/consciousness: patient oriented x3 <Tatyana Vincent PA-C - Last Filed: 05/03/21 10:20> GI: Inspection: No distended and Yes incision (clean) <Tatyana Vincent PA-C - Last Filed: 05/03/21 10:20> Palpation (GI): Soft to palpation and Tenderness to palpation present (GI) <Tatyana Vincent PA-C - Last Filed: 05/03/21 10:20> Percussion: Yes normal to percussion <Tatyana Vincent PA-C - Last Filed: 05/03/21 10:20> Skin: General skin exam: no rashes or lesions noted <Tatyana Vincent PA-C - Last Filed: 05/03/21 10:20> Neuro: General: patient oriented x3 <Tatyana Vincent PA-C - Last Filed: 05/03/21 10:20> Extrem: General: Yes no clubbing, cyanosis or edema <Tatyana Vincent PA-C - Last Filed: 05/03/21 10:20> Objective Data Active Medications Dicyclomine HCl (Dicyclomine Hcl 10 Mg Capsule) 20 mg PO QID [facility] Last Admin: 05/03/21 08:19 Dose: Not Given Documented by: MAKENZIE Non-Admin Reason: Patient Refused Diphenhydramine HCl (Diphenhydramine Hcl 50 Mg/Ml Vial) 25 mg IVPUSH Q6H PRN PRN Reason: Itching Last Admin: 05/03/21 00:21 Dose: 25 mg Documented by: JUANA Enoxaparin Sodium (Enoxaparin Sodium 40 Mg/0.4 Ml Syringe) 40 mg SUBCUT DAILY [facility] Last Admin: 05/03/21 08:19 Dose: Not Given Documented by: MAKENZIE Non-Admin Reason: Patient Refused Hydromorphone HCl (Hydromorphone Hcl 1 Mg/Ml Syringe) 1 mg IVPUSH Q2H PRN; Protocol PRN Reason: Pain, Severe (Pain Scale 7-10) Last Admin: 05/03/21 08:17 Dose: 1 mg Documented by: MAKENZIE Metronidazole (Flagyl) 500 mg in 100 mls @ 100 mls/hr IV Q8H [facility] Last Infusion: 05/03/21 06:39 Dose: 100 mls/hr Documented by: JUANA Lactated Ringer's (Lr) 1,000 mls @ 125 mls/hr IVCONT .Q8H [facility] Last Admin: 05/03/21 09:57 Dose: 80 mls/hr Documented by: MAKENZIE Acetaminophen (Ofirmev) 1,000 mg in 100 mls @ 400 mls/hr IV Q6H [facility] Last Admin: 05/03/21 09:57 Dose: 400 mls/hr Documented by: MAKENZIE Amino Acids/Electrolytes/Dextrose (Clinimix E 4.25%-10%) 1,440 mls @ 60 mls/hr IV DAILY@1800 [facility] Stop: 05/03/21 17:59 Last Admin: 05/02/21 19:02 Dose: 60 mls/hr Documented by: MAKENZIE Fat Emulsion Intravenous (Intralipid) 216 mls @ 18 mls/hr IVCONT BID@0600,1800 [facility] Stop: 05/03/21 17:59 Last Admin: 05/03/21 05:31 Dose: 18 mls/hr Documented by: JUANA Lorazepam (Lorazepam 2 Mg/Ml Vial) 0.25 mg IVPUSH Q6H PRN PRN Reason: Anxiety Last Admin: 05/03/21 07:16 Dose: 0.25 mg Documented by: MAKENZIE Methylprednisolone Sodium Succinate (Methylprednisolone Sod Succ 40 Mg/Ml Vial) 30 mg IV DAILY [facility] Last Admin: 05/03/21 08:16 Dose: 30 mg Documented by: MAKENZIE Multi-Ingred Medicated Throat [place] (Throat [place], Medicated 20 Ml Bottle) 1 spray MUCOUS MEM Q2H PRN PRN Reason: throat discomfort Last Admin: 04/30/21 12:06 Dose: 1 spray Documented by: ALVARO Non-Formulary Medication (Norgestimate-Ethinyl Estradiol [Estarylla]) 1 tab PO DAILY [facility] Last Admin: 05/03/21 08:20 Dose: Not Given Documented by: MAKENZIE Non-Admin Reason: Patient Refused Omeprazole (Omeprazole 40 Mg Capsule.) 40 mg PO DAILY@0630 [facility] Last Admin: 05/03/21 06:25 Dose: Not Given Documented by: JUANA Non-Admin Reason: NPO Ondansetron HCl (Ondansetron Hcl 4 Mg/2 Ml Vial) 4 mg IVPUSH Q6H PRN PRN Reason: nausea Last Admin: 04/29/21 19:45 Dose: 4 mg Documented by: SKY Pharmacy Consult (Consult Rx Perform Med Rec) 1 each MISCELLANE ONCE PRN PRN Reason: Consult order Sodium Chloride (0.9 % Sodium Chloride Flush 3 Ml Syringe) 3 ml IVFLUSH QSHIFT [facility] Last Admin: 05/03/21 07:16 Dose: 3 ml Documented by: MAKENZIE Vancomycin HCl (Vancomycin Hcl 125 Mg Capsule) 125 mg PO QID [facility] Last Admin: 04/30/21 08:54 Dose: Not Given Documented by: ALVARO Non-Admin Reason: Patient Refused <Tatyana Vincent PA-C - Last Filed: 05/03/21 10:20> Labs CBC & Chem 7: : 05/03/21 06:05 05/03/21 06:05 <Tatyana Vincent PA-C - Last Filed: 05/03/21 10:20> Labs: Laboratory Results - last 24 hr 05/03/21 05/03/21 06:05 06:05 MCV 94.7 MCH 31.0 MCHC 32.8 RDW 12.8 Plt Count 332 MPV 8.8 L Absolute Nucleated RBC 0.000 Nucleated RBC % (auto) 0.0 Anion Gap 12 Estim Creat Clear Calc 106.5 Estimated GFR > 60 Random Glucose 128 H Calcium 8.5 Phosphorus 2.8 Magnesium 2.0 <Tatyana Vincent PA-C - Last Filed: 05/03/21 10:20> Procedures Date of Service Date of Service: 05/03/21 <Tatyana Vincent PA-C - Last Filed: 05/03/21 10:20> Progress Note: A&P Assessment and plan (1) Small bowel obstruction: Status: Acute <Tatyana Vincent PA-C - Last Filed: 05/03/21 10:20> Assessment and Plan: Says she feels better Passing flatus States she had BMs Looks well Abdomen soft incision clean and dry Plan to clamp NG tube, check residuals Possibly DC NG tube today Clinical doing well otherwise Seen examined independently - agree with HOOD Vincent <Vazquez Escobar MD - Last Filed: 05/03/21 10:59> Plan 45-year-old female patient status post small-bowel resection for obstruction with resolving postoperative ileus, now with good GI function. SBO/Ileus resolving. Clamp NGT for 4 hrs, check residual. Unclamp sooner if develops nausea/vomiting. Will remove NGT if residual <100cc and remains asym ptomatic. Encouraged OOB/ambulation. Transition to PO analgesics once NGT removed in preparation for discharge. Patient comfortable with plan. <Tatyana Vincent PA-C - Last Filed: 05/03/21 10:20> Fall Risk Details Current Medications: Current Medications Dicyclomine HCl (Dicyclomine Hcl 10 Mg Capsule) 20 mg PO QID [facility] Last Admin: 05/03/21 08:19 Dose: Not Given Documented by: Diphenhydramine HCl (Diphenhydramine Hcl 50 Mg/Ml Vial) 25 mg IVPUSH Q6H PRN PRN Reason: Itching Last Admin: 05/03/21 00:21 Dose: 25 mg Documented by: Enoxaparin Sodium (Enoxaparin Sodium 40 Mg/0.4 Ml Syringe) 40 mg SUBCUT DAILY [facility] Last Admin: 05/03/21 08:19 Dose: Not Given Documented by: Hydromorphone HCl (Hydromorphone Hcl 1 Mg/Ml Syringe) 1 mg IVPUSH Q2H PRN; Protocol PRN Reason: Pain, Severe (Pain Scale 7-10) Last Admin: 05/03/21 08:17 Dose: 1 mg Documented by: Metronidazole (Flagyl) 500 mg in 100 mls @ 100 mls/hr IV Q8H [facility] Last Infusion: 05/03/21 06:39 Dose: Infused Documented by: Lactated Ringer's (Lr) 1,000 mls @ 125 mls/hr IVCONT .Q8H [facility] Last Admin: 05/03/21 09:57 Dose: 80 mls/hr Documented by: Acetaminophen (Ofirmev) 1,000 mg in 100 mls @ 400 mls/hr IV Q6H [facility] Last Admin: 05/03/21 09:57 Dose: 400 mls/hr Documented by: Amino Acids/Electrolytes/Dextrose (Clinimix E 4.25%-10%) 1,440 mls @ 60 mls/hr IV DAILY@1800 [facility] Stop: 05/03/21 17:59 Last Admin: 05/02/21 19:02 Dose: 60 mls/hr Documented by: Fat Emulsion Intravenous (Intralipid) 216 mls @ 18 mls/hr IVCONT BID@0600,1800 [facility] Stop: 05/03/21 17:59 Last Admin: 05/03/21 05:31 Dose: 18 mls/hr Documented by: Lorazepam (Lorazepam 2 Mg/Ml Vial) 0.25 mg IVPUSH Q6H PRN PRN Reason: Anxiety Last Admin: 05/03/21 07:16 Dose: 0.25 mg Documented by: Methylprednisolone Sodium Succinate (Methylprednisolone Sod Succ 40 Mg/Ml Vial) 30 mg IV DAILY [facility] Last Admin: 05/03/21 08:16 Dose: 30 mg Documented by: Multi-Ingred Medicated Throat [place] (Throat [place], Medicated 20 Ml Bottle) 1 spray MUCOUS MEM Q2H PRN PRN Reason: throat discomfort Last Admin: 04/30/21 12:06 Dose: 1 spray Documented by: Non-Formulary Medication (Norgestimate-Ethinyl Estradiol [Estarylla]) 1 tab PO DAILY [facility] Last Admin: 05/03/21 08:20 Dose: Not Given Documented by: Omeprazole (Omeprazole 40 Mg Capsule.Dr) 40 mg PO DAILY@0630 [facility] Last Admin: 05/03/21 06:25 Dose: Not Given Documented by: Ondansetron HCl (Ondansetron Hcl 4 Mg/2 Ml Vial) 4 mg IVPUSH Q6H PRN PRN Reason: nausea Last Admin: 04/29/21 19:45 Dose: 4 mg Documented by: Pharmacy Consult (Consult Rx Perform Med Rec) 1 each MISCELLANE ONCE PRN PRN Reason: Consult order Sodium Chloride (0.9 % Sodium Chloride Flush 3 Ml Syringe) 3 ml IVFLUSH QSHIFT [facility] Last Admin: 05/03/21 07:16 Dose: 3 ml Documented by: Vancomycin HCl (Vancomycin Hcl 125 Mg Capsule) 125 mg PO QID [facility] Last Admin: 04/30/21 08:54 Dose: Not Given Documented by: <Tatyana Vincent PA-C - Last Filed: 05/03/21 10:20> Time Spent With Patient Time: Total time spent is greater than 50% in coordination of care (as d ocumented) at patient's floor/unit and/or counseling patient: <Tatyana Vincent PA-C - Last Filed: 05/03/21 10:20> Quality Stroke Does the patient have a stroke diagnosis?: No <Tatyana Vincent PA-C - Last Filed: 05/03/21 10:20> VTE Prior VTE?: No <Tatyana Vincent PA-C - Last Filed: 05/03/21 10:20> VTE Risk Level:: Medical - moderate - high <Tatyana Vincent PA-C - Last Filed: 05/03/21 10:20> VTE Device Contraindication: Treatment Not Indicated <Tatyana Vincent PA-C - Last Filed: 05/03/21 10:20> VTE Drug Contraindication: N/A - Med Ordered <Tatyana Vincent PA-C - Last Filed: 05/03/21 10:20>
--- NOTE | 2021-05-03 10:23 | MHC.CLN ---
F/U CONTINUES NPO WITH NG TUBE FOR DECOMPRESSION. PPN RUNNING WITH D10AA4.25 AT 60 ML PER HOUR-MAX GOAL RATE; LIPIDS 18 ML OF 20% LIPIDS. PROVIDES 1598KCAL (29.6 KCAL/KG); 61 G PROTEIN (1.13 G/KG). REPLETE LYTES NEEDED. STATUS POST SMALL BOWEL RESECTION FOR OBSTRUCTION WITH RESOLVING POSTOPERATIVE ILEUS. LABS REVIEWED. DISCUSSED WITH PHARMACIST AND NURSE. RD RECOMMENDS CONTINUE CURRENT PPN AND LIPIDS. MONITOR PPN TOLERANCE, LABS, AND FOLLOW FOR DIET UPGRADE.
--- NOTE | 2021-05-03 11:27 | HO.PM.IMPN ---
Subjective Subjective Date of Service: 05/03/21 Interval History: the patient was seen and evaluated this morning Laying? in bed, abdominal pain improving on daily basis Had bowel movement yesterday NG tube in place , clamped for now No reported other overnight events. Systemic review: No fever, chills and feels better No chest pain, palpitation No shortness of breath or coughing reporting pain, and passing gas No urinary symptoms Rash improving Physical Exam Vital Signs: Vital Signs: Last Vital Signs Temp 97.3 F 05/03/21 08:00 Pulse 88 05/03/21 08:00 Resp 18 05/03/21 08:00 BP 158/101 H 05/03/21 08:00 Pulse Ox 98 05/03/21 08:00 BMI result Body Mass Index 21.0 Const: Other: Constitutional : Alert, interactive, looks comfortable Neck : Normal inspection, Supple Cardiovascular : RRR, S1 S2, no lower extremity edema Respiratory : Good bilateral air entry, no crackles, wheezes or rhonchi Gastrointestinal: soft, lax, decreased bowel sounds, generalized tender with superficial palpation, surgical site clean and covered with dressing Skin : Warm, Dry, rash resolved Neurological : Alert & oriented x3, No focal deficit Objective Data Active Medications Dicyclomine HCl (Dicyclomine Hcl 10 Mg Capsule) 20 mg PO QID [facility] Last Admin: 05/03/21 08:19 Dose: Not Given Documented by: MAKENZIE Non-Admin Reason: Patient Refused Diphenhydramine HCl (Diphenhydramine Hcl 50 Mg/Ml Vial) 25 mg IVPUSH Q6H PRN PRN Reason: Itching Last Admin: 05/03/21 00:21 Dose: 25 mg Documented by: JUANA Enoxaparin Sodium (Enoxaparin Sodium 40 Mg/0.4 Ml Syringe) 40 mg SUBCUT DAILY [facility] Last Admin: 05/03/21 08:19 Dose: Not Given Documented by: MAKENZIE Non-Admin Reason: Patient Refused Hydromorphone HCl (Hydromorphone Hcl 1 Mg/Ml Syringe) 1 mg IVPUSH Q2H PRN; Protocol PRN Reason: Pain, Severe (Pain Scale 7-10) Last Admin: 05/03/21 08:17 Dose: 1 mg Documented by: MAKENZIE Metronidazole (Flagyl) 500 mg in 100 mls @ 100 mls/hr IV Q8H [facility] Last Infusion: 05/03/21 06:39 Dose: 100 mls/hr Documented by: JUANA Lactated Ringer's (Lr) 1,000 mls @ 125 mls/hr IVCONT .Q8H [facility] Last Admin: 05/03/21 09:57 Dose: 80 mls/hr Documented by: MAKENZIE Acetaminophen (Ofirmev) 1,000 mg in 100 mls @ 400 mls/hr IV Q6H [facility] Last Infusion: 05/03/21 10:58 Dose: 0 mls/hr Documented by: MAKENZIE Amino Acids/Electrolytes/Dextrose (Clinimix E 4.25%-10%) 1,440 mls @ 60 mls/hr IV DAILY@1800 [facility] Stop: 05/03/21 17:59 Last Admin: 05/02/21 19:02 Dose: 60 mls/hr Documented by: MAKENZIE Fat Emulsion Intravenous (Intralipid) 216 mls @ 18 mls/hr IVCONT BID@0600,1800 [facility] Stop: 05/03/21 17:59 Last Admin: 05/03/21 05:31 Dose: 18 mls/hr Documented by: JUANA Lorazepam (Lorazepam 2 Mg/Ml Vial) 0.25 mg IVPUSH Q6H PRN PRN Reason: Anxiety Last Admin: 05/03/21 07:16 Dose: 0.25 mg Documented by: MAKENZIE Methylprednisolone Sodium Succinate (Methylprednisolone Sod Succ 40 Mg/Ml Vial) 30 mg IV DAILY [facility] Last Admin: 05/03/21 08:16 Dose: 30 mg Documented by: MAKENZIE Multi-Ingred Medicated Throat [place] (Throat [place], Medicated 20 Ml Bottle) 1 spray MUCOUS MEM Q2H PRN PRN Reason: throat discomfort Last Admin: 04/30/21 12:06 Dose: 1 spray Documented by: ALVARO Non-Formulary Medication (Norgestimate-Ethinyl Estradiol [Estarylla]) 1 tab PO DAILY [facility] Last Admin: 05/03/21 08:20 Dose: Not Given Documented by: MAKENZIE Non-Admin Reason: Patient Refused Omeprazole (Omeprazole 40 Mg Devin.) 40 mg PO DAILY@0630 [facility] Last Admin: 05/03/21 06:25 Dose: Not Given Documented by: JUANA Non-Admin Reason: NPO Ondansetron HCl (Ondansetron Hcl 4 Mg/2 Ml Vial) 4 mg IVPUSH Q6H PRN PRN Reason: nausea Last Admin: 04/29/21 19:45 Dose: 4 mg Documented by: SKY Pharmacy Consult (Consult Rx Perform Med Rec) 1 each MISCELLANE ONCE PRN PRN Reason: Consult order Sodium Chloride (0.9 % Sodium Chloride Flush 3 Ml Syringe) 3 ml IVFLUSH QSHIFT [facility] Last Admin: 05/03/21 07:16 Dose: 3 ml Documented by: MAKENZIE Vancomycin HCl (Vancomycin Hcl 125 Mg Capsule) 125 mg PO QID [facility] Last Admin: 04/30/21 08:54 Dose: Not Given Documented by: ALVARO Non-Admin Reason: Patient Refused Labs CBC & Chem 7: 05/03/21 06:05 05/03/21 06:05 Labs: Laboratory Results - last 24 hr 05/03/21 05/03/21 06:05 06:05 MCV 94.7 MCH 31.0 MCHC 32.8 RDW 12.8 Plt Count 332 MPV 8.8 L Absolute Nucleated RBC 0.000 Nucleated RBC % (auto) 0.0 Anion Gap 12 Estim Creat Clear Calc 106.5 Estimated GFR > 60 Random Glucose 128 H Calcium 8.5 Phosphorus 2.8 Magnesium 2.0 Assessment and Plan (1) Small bowel obstruction: Status: Acute (2) Nausea & vomiting: Status: Acute (3) C. difficile colitis: Status: Acute (4) Status post small bowel resection: Status: Acute Plan 45-year-old female presented with abdominal pain. intractable abdominal pain 2/2 SBO Status post resection of obstructed terminal ileum with ileo colonic anastomosis to the right colon Pod 5 Abdominal pain improving, passing gas Continue iv solumedrol per GI recommendations, to taper down quickly Continue IV fluids, antiemetics surgery input appreciated Pain management Keep NG tube in place for now , to clamp and monitor response GI following C diff colitis P.o. vancomycin on hold while NPO continue with IV Flagyl skin rash Resolved Benadryl IV p.r.n. continue to monitor Anxiety attacks Continue IV Ativan as needed Insomnia Zolpidem as needed DVT prophylaxis with Lovenox reason for continued hospitalization: Post surgery status, pending improvement of her GI function and decrease of pain. Quality Stroke Does the patient have a stroke diagnosis?: No VTE Prior VTE?: No VTE Risk Level:: Medical - moderate - high VTE Device Contraindication: Treatment Not Indicated VTE Drug Contraindication: N/A - Med Ordered
[2021-05-03 12:00] VITALS: BP 173/97; PULSE 89; RESP 19; TEMP 36.4; O2SAT 98
--- NOTE | 2021-05-03 14:01 | MHC.CM.PN ---
Emr reviewed, ng tube remains in place, plan to clamp for 4hrs and then check residual, pt has had return of bowel fx, remains NPO, on IV fluids and TPN ordered for 1800. no d/c plan for today, cm will cont to follow d/c needs.
--- NOTE | 2021-05-03 14:42 | P.PNGI_ITS ---
Subjective Subjective Date of Service: 05/03/21 Interval History: less pain, tolerating ng clamping Critical Care Time (minutes): 0 Physical Exam Vital Signs: Vital Signs: Last Vital Signs Temp 97.5 F 05/03/21 12:00 Pulse 89 05/03/21 12:00 Resp 19 05/03/21 12:00 BP 173/97 H 05/03/21 12:00 Pulse Ox 98 05/03/21 12:00 BMI result Body Mass Index 21.0 GI: Other: abdomen is soft Objective Data Labs CBC & Chem 7: 05/03/21 06:05 05/03/21 06:05 Procedures Date of Service Date of Service: 05/03/21 Progress Note: A&P Assessment and plan (1) Status post small bowel resection: Status: Acute Assessment and Plan: doing well can switch to po prednisone when ng out continue to taper steroids Fall Risk Details Current Medications: Current Medications Dicyclomine HCl (Dicyclomine Hcl 10 Mg Capsule) 20 mg PO QID [facility] Last Admin: 05/03/21 13:02 Dose: Not Given Documented by: Diphenhydramine HCl (Diphenhydramine Hcl 50 Mg/Ml Vial) 25 mg IVPUSH Q6H PRN PRN Reason: Itching Last Admin: 05/03/21 00:21 Dose: 25 mg Documented by: Enoxaparin Sodium (Enoxaparin Sodium 40 Mg/0.4 Ml Syringe) 40 mg SUBCUT DAILY [facility] Last Admin: 05/03/21 08:19 Dose: Not Given Documented by: Hydromorphone HCl (Hydromorphone Hcl 1 Mg/Ml Syringe) 1 mg IVPUSH Q2H PRN; Protocol PRN Reason: Pain, Severe (Pain Scale 7-10) Last Admin: 05/03/21 12:03 Dose: 1 mg Documented by: Metronidazole (Flagyl) 500 mg in 100 mls @ 100 mls/hr IV Q8H [facility] Last Infusion: 05/03/21 14:37 Dose: Infused Documented by: Lactated Ringer's (Lr) 1,000 mls @ 125 mls/hr IVCONT .Q8H [facility] Last Admin: 05/03/21 14:28 Dose: 80 mls/hr Documented by: Acetaminophen (Ofirmev) 1,000 mg in 100 mls @ 400 mls/hr IV Q6H [facility] Last Infusion: 05/03/21 10:58 Dose: Infused Documented by: Amino Acids/Electrolytes/Dextrose (Clinimix E 4.25%-10%) 1,440 mls @ 60 mls/hr IV DAILY@1800 [facility] Stop: 05/03/21 17:59 Last Admin: 05/02/21 19:02 Dose: 60 mls/hr Documented by: Fat Emulsion Intravenous (Intralipid) 216 mls @ 18 mls/hr IVCONT BID@0600,1800 [facility] Stop: 05/03/21 17:59 Last Admin: 05/03/21 05:31 Dose: 18 mls/hr Documented by: Potassium Chloride 30 meq/Sodium Chloride 35 meq/Magnesium Sulfate 5 meq/Potassium Phosphate 15 mmol/Calcium Gluconate 4.65 meq/Multivitamins 10 ml/ Trace Metals 1 ml/ Amino Acids/Electrolytes/Dextrose 1,051 mls @ 60 mls/hr IVCONT DAILY@1800 [facility] Stop: 05/04/21 11:30 Potassium Chloride 30 meq/Sodium Chloride 35 meq/Magnesium Sulfate 5 meq/Potassium Phosphate 15 mmol/Calcium Gluconate 4.65 meq/Amino Acids/Elect rolytes/Dextrose 389 mls @ 60 mls/hr IVCONT DAILY@1800 [facility] Stop: 05/04/21 17:58 Fat Emulsion Intravenous (Intralipid) 216 mls @ 18 mls/hr IVCONT BID@0600,1800 [facility] Stop: 05/04/21 17:59 Lorazepam (Lorazepam 2 Mg/Ml Vial) 0.25 mg IVPUSH Q6H PRN PRN Reason: Anxiety Last Admin: 05/03/21 14:36 Dose: 0.25 mg Documented by: Methylprednisolone Sodium Succinate (Methylprednisolone Sod Succ 40 Mg/Ml Vial) 30 mg IV DAILY [facility] Last Admin: 05/03/21 08:16 Dose: 30 mg Documented by: Multi-Ingred Medicated Throat [place] (Throat [place], Medicated 20 Ml Bottle) 1 spray MUCOUS MEM Q2H PRN PRN Reason: throat discomfort Last Admin: 04/30/21 12:06 Dose: 1 spray Documented by: Non-Formulary Medication (Norgestimate-Ethinyl Estradiol [Estarylla]) 1 tab PO DAILY [facility] Last Admin: 05/03/21 08:20 Dose: Not Given Documented by: Omeprazole (Omeprazole 40 Mg Capsule.Dr) 40 mg PO DAILY@0630 [facility] Last Admin: 05/03/21 06:25 Dose: Not Given Documented by: Ondansetron HCl (Ondansetron Hcl 4 Mg/2 Ml Vial) 4 mg IVPUSH Q6H PRN PRN Reason: nausea Last Admin: 04/29/21 19:45 Dose: 4 mg Documented by: Pharmacy Consult (Consult Rx Perform Med Rec) 1 each MISCELLANE ONCE PRN PRN Reason: Consult order Sodium Chloride (0.9 % Sodium Chloride Flush 3 Ml Syringe) 3 ml IVFLUSH QSHIFT [facility] Last Admin: 05/03/21 07:16 Dose: 3 ml Documented by: Vancomycin HCl (Vancomycin Hcl 125 Mg Capsule) 125 mg PO QID [facility] Last Admin: 04/30/21 08:54 Dose: Not Given Documented by: Time Spent With Patient Time: Total time spent is greater than 50% in coordination of care (as documented) at patient's floor/unit and/or counseling patient: Quality Stroke Does the patient have a stroke diagnosis?: No VTE Prior VTE?: No VTE Risk Level:: Medical - moderate - high VTE Device Contraindication: Treatment Not Indicated VTE Drug Contraindication: N/A - Med Ordered
--- NOTE | 2021-05-03 14:50 | PM.EVENT ---
Event Note Date of Service: 05/03/21 Event Note: NG tube had been clamped all morning She denies any nausea or discomfort I clamped this and reconnected this to suction - minimal output noted I therefore pulled out the NG tube She remains comfortable Will keep on sips of clear liquids for now
[2021-05-03 16:00] VITALS: BP 134/92; PULSE 91; RESP 17; TEMP 36.9; O2SAT 97
[2021-05-03 19:28] VITALS: BP 160/85; PULSE 81; RESP 15; TEMP 36.6; O2SAT 98
[2021-05-04] VITALS: BP 130/70; PULSE 81; RESP 17; TEMP 36.3; O2SAT 98
[2021-05-04] MEDS: LORazepam 2 MG/ML VIAL 0.25 MG IVPUSH ×4 (02:59→22:26)
[2021-05-04 03:54] VITALS: BP 142/80; PULSE 90; RESP 17; TEMP 36.3; O2SAT 96
[2021-05-04] MEDS: metroNIDAZOLE/NS 500 MG/100 ML PIGGYBACK 100 MG IV ×3 (05:16→21:16)
[2021-05-04] MEDS: Omeprazole 40 MG CAPSULE.DR PO (05:16)
[2021-05-04] MEDS: HYDROmorphone HCl 1 MG/ML SYRINGE IVPUSH (05:53)
[2021-05-04] MEDS: Fat Emulsions 20% 250 ML 18 ML IVCONT ×2 (05:55→18:30)
[2021-05-04 06:22] LABS: Hematocrit 32.1 % (37.0-47.0); Hemoglobin 10.7 g/dl (12.0-16.0); Mean Corpuscular HGB Conc 33.3 g/dl (31.0-35.0); Mean Platelet Volume 8.6 fL (9.4-12.3); Platelet Count 305 X10*3/uL (160-400); Red Blood Count 3.45 X10*6/uL (4.20-5.50); Red Cell Distribution Width 12.8 % (11.0-16.0); White Blood Count 8.4 X10*3/uL (4.8-10.8)
[2021-05-04 06:40] LABS: Anion Gap 11 (12-20); Blood Urea Nitrogen 10 mg/dL (9-16); Calcium 8.3 mg/dL (8.4-10.2); Carbon Dioxide 27 mmol/L (22-29); Chloride 106 mmol/L (96-108); Estimated Glomerular Filt Rate > 60; Glucose Random 129 mg/dL (60-115); Potassium 3.4 mmol/L (3.3-5.1); Sodium 141 mmol/L (135-145)
[2021-05-04] MEDS: diphenhydrAMINE HCL 50 MG/ML VIAL 25 MG IVPUSH ×2 (06:45→21:15)
--- NOTE | 2021-05-04 07:36 | P.PNGS_ITS ---
Subjective Subjective Date of Service: 05/04/21 Interval history: says she had a good night no issues since NGT removed had BMs, flatus this AM Physical Exam Vital Signs: Vital Signs: Last Vital Signs Temp 97.4 F 05/04/21 03:54 Pulse 90 05/04/21 03:54 Resp 17 05/04/21 03:54 BP 142/80 H 05/04/21 03:54 Pulse Ox 96 05/04/21 03:54 BMI result Body Mass Index 21.0 Const: General: comfortable and no acute distress Resp: Effort & Inspection: normal respiratory effort Cardio: Rate: regular rate GI: Other: incision clean and dry Palpation (GI): Soft to palpation and not firm Objective Data Active Medications Dicyclomine HCl (Dicyclomine Hcl 10 Mg Capsule) 20 mg PO QID [facility] Last Admin: 05/03/21 22:13 Dose: Not Given Documented by: JUANA Non-Admin Reason: Patient Refused Diphenhydramine HCl (Diphenhydramine Hcl 50 Mg/Ml Vial) 25 mg IVPUSH Q6H PRN PRN Reason: Itching Last Admin: 05/04/21 06:45 Dose: 25 mg Documented by: JUANA Enoxaparin Sodium (Enoxaparin Sodium 40 Mg/0.4 Ml Syringe) 40 mg SUBCUT DAILY [facility] Last Admin: 05/03/21 08:19 Dose: Not Given Documented by: MAKENZIE Non-Admin Reason: Patient Refused Hydromorphone HCl (Hydromorphone Hcl 1 Mg/Ml Syringe) 1 mg IVPUSH Q2H PRN; Protocol PRN Reason: Pain, Severe (Pain Scale 7-10) Last Admin: 05/04/21 05:53 Dose: 1 mg Documented by: JUANA Metronidazole (Flagyl) 500 mg in 100 mls @ 100 mls/hr IV Q8H [facility] Last Infusion: 05/04/21 06:23 Dose: 100 mls/hr Documented by: JUANA Lactated Ringer's (Lr) 1,000 mls @ 125 mls/hr IVCONT .Q8H [facility] Last Admin: 05/03/21 21:58 Dose: 80 mls/hr Documented by: JUANA Acetaminophen (Ofirmev) 1,000 mg in 100 mls @ 400 mls/hr IV Q6H [facility] Last Infusion: 05/04/21 02:56 Dose: 400 mls/hr Documented by: JUANA Potassium Chloride 30 meq/Sodium Chloride 35 meq/Magnesium Sulfate 5 meq/Potassium Phosphate 15 mmol/Calcium Gluconate 4.65 meq/Multivitamins 10 ml/ Trace Metals 1 ml/ Amino Acids/Electrolytes/Dextrose 1,051 mls @ 60 mls/hr IVCONT DAILY@1800 [facility] Stop: 05/04/21 11:30 Last Admin: 05/03/21 18:08 Dose: 60 mls/hr Documented by: MAKENZIE Potassium Chloride 30 meq/Sodium Chloride 35 meq/Magnesium Sulfate 5 me q/Potassium Phosphate 15 mmol/Calcium Gluconate 4.65 meq/Amino Acids/Electrolytes/Dextrose 389 mls @ 60 mls/hr IVCONT DAILY@1800 [facility] Stop: 05/04/21 17:58 Fat Emulsion Intravenous (Intralipid) 216 mls @ 18 mls/hr IVCONT BID@0600,1800 [facility] Stop: 05/04/21 17:59 Last Admin: 05/04/21 05:55 Dose: 18 mls/hr Documented by: JUANA Lorazepam (Lorazepam 2 Mg/Ml Vial) 0.25 mg IVPUSH Q6H PRN PRN Reason: Anxiety Last Admin: 05/04/21 02:59 Dose: 0.25 mg Documented by: JUANA Methylprednisolone Sodium Succinate (Methylprednisolone Sod Succ 40 Mg/Ml Vial) 30 mg IV DAILY [facility] Last Admin: 05/03/21 08:16 Dose: 30 mg Documented by: MAKENZIE Multi-Ingred Medicated Throat [place] (Throat [place], Medicated 20 Ml Bottle) 1 spray MUCOUS MEM Q2H PRN PRN Reason: throat discomfort Last Admin: 04/30/21 12:06 Dose: 1 spray Documented by: ALVARO Non-Formulary Medication (Norgestimate-Ethinyl Estradiol [Estarylla]) 1 tab PO DAILY [facility] Last Admin: 05/03/21 15:43 Dose: 1 tab Documented by: MAKENZIE Omeprazole (Omeprazole 40 Mg Capsule.) 40 mg PO DAILY@0630 [facility] Last Admin: 05/04/21 05:16 Dose: 40 mg Documented by: JUANA Ondansetron HCl (Ondansetron Hcl 4 Mg/2 Ml Vial) 4 mg IVPUSH Q6H PRN PRN Reason: nausea Last Admin: 04/29/21 19:45 Dose: 4 mg Documented by: SKY Pharmacy Consult (Consult Rx Perform Med Rec) 1 each MISCELLANE ONCE PRN PRN Reason: Consult order Sodium Chloride (0.9 % Sodium Chloride Flush 3 Ml Syringe) 3 ml IVFLUSH QSHIFT [facility] Last Admin: 05/04/21 01:28 Dose: Not Given Documented by: JUANA Non-Admin Reason: pt has picc line Vancomycin HCl (Vancomycin Hcl 125 Mg Capsule) 125 mg PO QID [facility] Last Admin: 04/30/21 08:54 Dose: Not Given Documented by: ALVARO Non-Admin Reason: Patient Refused Labs CBC & Chem 7: 05/04/21 05:57 05/04/21 05:57 Labs: Laboratory Results - last 24 hr 05/03/21 05/04/21 05/04/21 06:05 05:57 05:57 MCV 93.0 MCH 31.0 MCHC 33.3 RDW 12.8 Plt Count 305 MPV 8.6 L Absolute Nucleated RBC 0.000 Nucleated RBC % (auto) 0.0 Anion Gap 11 L Estim Creat Clear Calc 115.0 Estimated GFR > 60 Random Glucose 129 H Calcium 8.3 L Phosphorus 2.8 Magnesium 2.0 Procedures Date of Service Date of Service: 05/04/21 Progress Note: A&P Assessment and plan (1) Small bowel obstruction: Status: Acute Assessment and Plan: S/P resection looks well has good GI function start clear tray ambulate doing well postop labs ok Fall Risk Details Current Medications: Current Medications Dicyclomine HCl (Dicyclomine Hcl 10 Mg Capsule) 20 mg PO QID [facility] Last Admin: 05/03/21 22:13 Dose: Not Given Documented by: Diphenhydramine HCl (Diphenhydramine Hcl 50 Mg/Ml Vial) 25 mg IVPUSH Q6H PRN PRN Reason: Itching Last Admin: 05/04/21 06:45 Dose: 25 mg Documented by: Enoxaparin Sodium (Enoxaparin Sodium 40 Mg/0.4 Ml Syringe) 40 mg SUBCUT DAILY [facility] Last Admin: 05/03/21 08:19 Dose: Not Given Documented by: Hydromorphone HCl (Hydromorphone Hcl 1 Mg/Ml Syringe) 1 mg IVPUSH Q2H PRN; Protocol PRN Reason: Pain, Severe (Pain Scale 7-10) Last Admin: 05/04/21 05:53 Dose: 1 mg Documented by: Metronidazole (Flagyl) 500 mg in 100 mls @ 100 mls/hr IV Q8H [facility] Last Infusion: 05/04/21 06:23 Dose: Infused Documented by: Lactated Ringer's (Lr) 1,000 mls @ 125 mls/hr IVCONT .Q8H [facility] Last Admin: 05/03/21 21:58 Dose: 80 mls/hr Documented by: Acetaminophen (Ofirmev) 1,000 mg in 100 mls @ 400 mls/hr IV Q6H [facility] Last Infusion: 05/04/21 02:56 Dose: Infused Documented by: Potassium Chloride 30 meq/Sodium Chloride 35 meq/Magnesium Sulfate 5 meq/Potassium Phosphate 15 mmol/Calcium Gluconate 4.65 meq/Multivitamins 10 ml/ Trace Metals 1 ml/ Amino Acids/Electrolytes/Dextrose 1,051 mls @ 60 mls/hr IVCONT DAILY@1800 [facility] Stop: 05/04/21 11:30 Last Admin: 05/03/21 18:08 Dose: 60 mls/hr Documented by: Potassium Chloride 30 meq/Sodium Chloride 35 meq/Magnesium Sulfate 5 meq/Potassium Phosphate 15 mmol/Calcium Gluconate 4.65 meq/Amino Acids/Electrolytes/Dextrose 389 mls @ 60 mls/hr IVCONT DAILY@1800 [facility] Stop: 05/04/21 17:58 Fat Emulsion Intravenous (Intralipid) 216 mls @ 18 mls/hr IVCONT BID@0600,1800 [facility] Stop: 05/04/21 17:59 Last Admin: 05/04/21 05:55 Dose: 18 mls/hr Documented by: Lorazepam (Lorazepam 2 Mg/Ml Vial) 0.25 mg IVPUSH Q6H PRN PRN Reason: Anxiety Last Admin: 05/04/21 02:59 Dose: 0.25 mg Documented by: Methylprednisolone Sodium Succinate (Methylprednisolone Sod Succ 40 Mg/Ml Vial) 30 mg IV DAILY [facility] Last Admin: 05/03/21 08:16 Dose: 30 mg Documented by: Multi-Ingred Medicated Throat [place] (Thro[place], Medicated 20 Ml Bottle) 1 spray MUCOUS MEM Q2H PRN PRN Reason: throat discomfort Last Admin: 04/30/21 12:06 Dose: 1 spray Documented by: Non-Formulary Medication (Norgestimate-Ethinyl Estradiol [Estarylla]) 1 tab PO DAILY [facility] Last Admin: 05/03/21 15:43 Dose: 1 tab Documented by: Omeprazole (Omeprazole 40 Mg Capsule.) 40 mg PO DAILY@0630 [facility] Last Admin: 05/04/21 05:16 Dose: 40 mg Documented by: Ondansetron HCl (Ondansetron Hcl 4 Mg/2 Ml Vial) 4 mg IVPUSH Q6H PRN PRN Reason: nausea Last Admin: 04/29/21 19:45 Dose: 4 mg Documented by: Pharmacy Consult (Consult Rx Perform Med Rec) 1 each MISCELLANE ONCE PRN PRN Reason: Consult order Sodium Chloride (0.9 % Sodium Chloride Flush 3 Ml Syringe) 3 ml IVFLUSH QSHIFT [facility] Last Admin: 05/04/21 01:28 Dose: Not Given Documented by: Vancomycin HCl (Vancomycin Hcl 125 Mg Capsule) 125 mg PO QID [facility] Last Admin: 04/30/21 08:54 Dose: Not Given Documented by: Time Spent With Patient Time: Total time spent is greater than 50% in coordination of care (as documented) at patient's floor/unit and/or counseling patient: Quality Stroke Does the patient have a stroke diagnosis?: No VTE Prior VTE?: No VTE Risk Level:: Medical - moderate - high VTE Device Contraindication: Treatment Not Indicated VTE Drug Contraindication: N/A - Med Ordered
[2021-05-04] MEDS: Lactated Ringers 1,000 ML 80 ML IVCONT (07:48)
[2021-05-04 08:00] VITALS: BP 175/92; PULSE 91; RESP 17; TEMP 36.8; O2SAT 98
[2021-05-04] MEDS: Acetaminophen 325 MG TABLET 650 MG PO ×3 (09:19→21:15)
[2021-05-04] MEDS: methylPREDNISolone Sod Succ 40 MG/ML VIAL 30 MG IV (09:19)
[2021-05-04] MEDS: oxyCODONE HCl Immed Release 5 MG TABLET 10 MG PO ×4 (09:19→22:25)
--- NOTE | 2021-05-04 09:28 | MHC.CM.PN ---
nurse case management note electronic medical record reviewed, patient with small bowel obstruction and s/p bowel resection , ng-tube remobved 05/03/28 pm patient reports she had a good night , surgeon documents , bowel movement and passing flatus this am, gi function returning, advancing diet to clear liquid tray, continues on iv tpn and lipids from 05/03/21 , iv analgeics and trying to convert to oral analgeics, iv flagyl ,iv steroids,. discharge plan home with new referral to the [facility] for nrusing post surgical assessment pcp yoan delatorre transportation family direct care staffer to continue to follow for any changes in discharge needs
[2021-05-04 09:49] LABS: Phosphorus 2.9 mg/dL (2.7-4.5)
--- NOTE | 2021-05-04 10:19 | HO.PM.IMPN ---
Subjective Subjective Date of Service: 05/04/21 Interval History: the patient was seen and evaluated this morning Laying? in bed, abdominal pain improving Had bowel movements yesterday after removal of NG tube Start clear liquids this morning No reported other overnight events. Systemic review: No fever, chills and feels better No chest pain, palpitation No shortness of breath or coughing reporting decreased pain, and passing gas No urinary symptoms Rash improving Physical Exam Vital Signs: Vital Signs: Last Vital Signs Temp 98.2 F 05/04/21 08:00 Pulse 91 05/04/21 08:00 Resp 17 05/04/21 08:00 BP 175/92 H 05/04/21 08:00 Pulse Ox 98 05/04/21 08:00 BMI result Body Mass Index 21.0 Const: Other: Constitutional : Alert, interactive, looks comfortable Neck : Normal inspection, Supple Cardiovascular : RRR, S1 S2, no lower extremity edema Respiratory : Good bilateral air entry, no crackles, wheezes or rhonchi Gastrointestinal: soft, lax, normal bowel sounds, mild generalized tender with superficial palpation, surgical site clean Skin : Warm, Dry, rash resolved Neurological : Alert & oriented x3, No focal deficit Objective Data Active Medications Acetaminophen (Acetaminophen 325 Mg Tablet) 650 mg PO Q6H [facility] Last Admin: 05/04/21 09:19 Dose: 650 mg Documented by: ALVARO Dicyclomine HCl (Dicyclomine Hcl 10 Mg Capsule) 20 mg PO QID [facility] Last Admin: 05/04/21 09:05 Dose: Not Given Documented by: ALVARO Non-Admin Reason: Patient Refused Diphenhydramine HCl (Diphenhydramine Hcl 50 Mg/Ml Vial) 25 mg IVPUSH Q6H PRN PRN Reason: Itching Last Admin: 05/04/21 06:45 Dose: 25 mg Documented by: JUANA Enoxaparin Sodium (Enoxaparin Sodium 40 Mg/0.4 Ml Syringe) 40 mg SUBCUT DAILY [facility] Last Admin: 05/04/21 09:20 Dose: Not Given Documented by: ALVARO Non-Admin Reason: Patient Refused Hydromorphone HCl (Hydromorphone Hcl 1 Mg/Ml Syringe) 1 mg IVPUSH Q2H PRN; Protocol PRN Reason: Pain, Severe (Pain Scale 7-10) Last Admin: 05/04/21 05:53 Dose: 1 mg Documented by: JUANA Metronidazole (Flagyl) 500 mg in 100 mls @ 100 mls/hr IV Q8H [facility] Last Infusion: 05/04/21 06:23 Dose: 100 mls/hr Documented by: JUANA Lactated Ringer's (Lr) 1,000 mls @ 125 mls/hr IVCONT .Q8H [facility] Last Admin: 05/04/21 07:48 Dose: 80 mls/hr Documented by: ALVARO Potassium Chloride 30 meq/Sodium Chloride 35 meq/Magnesium Sulfate 5 meq/Potassium Phosphate 15 mmol/Calcium Gluconate 4.65 meq/Multivitamins 10 ml/ Trace Metals 1 ml/ Amino Acids/Electrolytes/Dextrose 1,051 mls @ 60 mls/hr IVCONT DAILY@1800 [facility] Stop: 05/04/21 11:30 Last Admin: 05/03/21 18:08 Dose: 60 mls/hr Documented by: MAKENZIE Potassium Chloride 30 meq/Sodium Chloride 35 meq/Magnesium Sulfate 5 meq/Potassium Phosphate 15 mmol/Calcium Gluconate 4.65 meq/Amino Acids/Electrolytes/Dextrose 389 mls @ 60 mls/hr IVCONT DAILY@1800 [facility] Stop: 05/04/21 17:58 Fat Emulsion Intravenous (Intralipid) 216 mls @ 18 mls/hr IVCONT BID@0600,1800 [facility] Stop: 05/04/21 17:59 Last Admin: 05/04/21 05:55 Dose: 18 mls/hr Documented by: JUANA Lorazepam (Lorazepam 2 Mg/Ml Vial) 0.25 mg IVPUSH Q6H PRN PRN Reason: Anxiety Last Admin: 05/04/21 09:54 Dose: 0.25 mg Documented by: ALVARO Methylprednisolone Sodium Succinate (Methylprednisolone Sod Succ 40 Mg/Ml Vial) 30 mg IV DAILY [facility] Last Admin: 05/04/21 09:19 Dose: 30 mg Documented by: ALVARO Multi-Ingred Medicated Throat [place] (Throat [place], Medicated 20 Ml Bottle) 1 spray MUCOUS MEM Q2H PRN PRN Reason: throat discomfort Last Admin: 04/30/21 12:06 Dose: 1 spray Documented by: ALVARO Non-Formulary Medication (Norgestimate-Ethinyl Estradiol [Estarylla]) 1 tab PO DAILY [facility] Last Admin: 05/04/21 09:20 Dose: 1 tab Documented by: ALVARO Omeprazole (Omeprazole 40 Mg Capsule.Dr) 40 mg PO DAILY@0630 [facility] Last Admin: 05/04/21 05:16 Dose: 40 mg Documented by: JUANA Ondansetron HCl (Ondansetron Hcl 4 Mg/2 Ml Vial) 4 mg IVPUSH Q6H PRN PRN Reason: nausea Last Admin: 04/29/21 19:45 Dose: 4 mg Documented by: ODRISHarvey Oxycodone HCl (Oxycodone Hcl Immed Release 5 Mg Tablet) 5 mg PO Q4H PRN PRN Reason: Pain, Moderate (Pain Scale 4-6 Oxycodone HCl (Oxycodone Hcl Immed Release 5 Mg Tablet) 10 mg PO Q4H PRN PRN Reason: Pain, Severe (Pain Scale 7-10) Last Admin: 05/04/21 09:19 Dose: 10 mg Documented by: ALVARO Pharmacy Consult (Consult Rx Perform Med Rec) 1 each MISCELLANE ONCE PRN PRN Reason: Consult order Sodium Chloride (0.9 % Sodium Chloride Flush 3 Ml Syringe) 3 ml IVFLUSH QSHIFT [facility] Last Admin: 05/04/21 07:46 Dose: Not Given Documented by: ALVARO Non-Admin Reason: IV Running Vancomycin HCl (Vancomycin Hcl 125 Mg Capsule) 125 mg PO QID [facility] Last Admin: 04/30/21 08:54 Dose: Not Given Documented by: ALVARO Non-Admin Reason: Patient Refused Labs CBC & Chem 7: 05/04/21 05:57 05/04/21 05:57 Labs: Laboratory Results - last 24 hr 05/04/21 05/04/21 05:57 05:57 MCV 93.0 MCH 31.0 MCHC 33.3 RDW 12.8 Plt Count 305 MPV 8.6 L Absolute Nucleated RBC 0.000 Nucleated RBC % (auto) 0.0 Anion Gap 11 L Estim Creat Clear Calc 115.0 Estimated GFR > 60 Random Glucose 129 H Calcium 8.3 L Phosphorus 2.9 Magnesium 2.0 Assessment and Plan (1) Status post small bowel resection: Status: Acute (2) Small bowel obstruction: Status: Acute (3) C. difficile colitis: Status: Acute Plan 45-year-old female presented with abdominal pain. intractable abdominal pain 2/2 SBO Status post resection of obstructed terminal ileum with ileo colonic anastomosis to the right colon Pod 6 Abdominal pain improving, passing gas and bowel movement Continue iv solumedrol per GI recommendations, to taper down to 20 mg Continue IV fluids, decreased to rate surgery input appreciated, start clear liquids Consider discontinuation of TPN if she tolerates diet Pain management C diff colitis To restart P.o. vancomycin continue with IV Flagyl , to DC if she tolerates p.o. skin rash Resolved Benadryl IV p.r.n. continue to monitor Anxiety attacks Continue IV Ativan as needed Insomnia Zolpidem as needed DVT prophylaxis with Lovenox reason for continued hospitalization: Post surgery status, pending improvement of her GI function and decrease of pain. Quality Stroke Does the patient have a stroke diagnosis?: No VTE Prior VTE?: No VTE Risk Level:: Medical - moderate - high VTE Device Contraindication: Treatment Not Indicated VTE Drug Contraindication: N/A - Med Ordered
[2021-05-04 11:54] VITALS: BP 155/98; PULSE 93; RESP 16; TEMP 37.3; O2SAT 98
[2021-05-04] MEDS: vancomycin HCL 125 MG CAPSULE PO ×3 (12:06→21:16)
--- NOTE | 2021-05-04 13:53 | MHC.CLN ---
F/U NG TUBE REMOVED 05/03 PPN CONTINUES RUNNING WITH D10AA4.25 AT MAX GOAL RATE OF 60 ML PER HOUR WITH LIPIDS 18 ML OF 20% LIPIDS PROVIDES 1598KCAL (29.6 KCAL/KG); 61 G PROTEIN (1.13 G/KG) DISCUSSED WITH PHARMACY REPLETE LYTES NEEDED DIET RX: ADVANCED TO C/L THIS AM NOTED IF DIET TOLERATED WILL D/C PPN POSSIBLY TOMORROW
--- NOTE | 2021-05-04 15:01 | P.PNGI_ITS ---
Subjective Subjective Date of Service: 05/04/21 Interval History: tolerating clear liquids Critical Care Time (minutes): 0 Physical Exam Vital Signs: Vital Signs: Last Vital Signs Temp 99.1 F 05/04/21 11:54 Pulse 93 05/04/21 11:54 Resp 16 05/04/21 11:54 BP 155/98 H 05/04/21 11:54 Pulse Ox 98 05/04/21 11:54 BMI result Body Mass Index 21.0 GI: Other: abdomen is soft, incision looks good Objective Data Labs CBC & Chem 7: 05/04/21 05:57 05/04/21 05:57 Microbiology Microbiology Results: Microbiology 04/23/21 11:54 Blood - Venous Blood Culture - Final No growth after 5 days. 04/23/21 11:47 Blood - Venous Blood Culture - Final No growth after 5 days. Procedures Date of Service Date of Service: 05/04/21 Progress Note: A&P Assessment and plan (1) Status post small bowel resection: Status: Acute Assessment and Plan: doing well can switch to po prednisone, 20 mg daily and taper over next 5 days or so. c-diff appears to have been treated appropriately. dicyclomine changed to prn. Fall Risk Details Current Medications: Current Medications Acetaminophen (Acetaminophen 325 Mg Tablet) 650 mg PO Q6H [facility] Last Admin: 05/04/21 09:19 Dose: 650 mg Documented by: Dicyclomine HCl (Dicyclomine Hcl 10 Mg Capsule) 20 mg PO QID [facility] Last Admin: 05/04/21 11:56 Dose: Not Given Documented by: Diphenhydramine HCl (Diphenhydramine Hcl 50 Mg/Ml Vial) 25 mg IVPUSH Q6H PRN PRN Reason: Itching Last Admin: 05/04/21 06:45 Dose: 25 mg Documented by: Enoxaparin Sodium (Enoxaparin Sodium 40 Mg/0.4 Ml Syringe) 40 mg SUBCUT DAILY [facility] Last Admin: 05/04/21 09:20 Dose: Not Given Documented by: Hydromorphone HCl (Hydromorphone Hcl 1 Mg/Ml Syringe) 1 mg IVPUSH Q2H PRN; Protocol PRN Reason: Pain, Severe (Pain Scale 7-10) Last Admin: 05/04/21 05:53 Dose: 1 mg Documented by: Metronidazole (Flagyl) 500 mg in 100 mls @ 100 mls/hr IV Q8H [facility] Last Infusion: 05/04/21 13:05 Dose: Infused Documented by: Lactated Ringer's (Lr) 1,000 mls @ 75 mls/hr IVCONT .[id number] [facility] Last Admin: 05/04/21 07:48 Dose: 80 mls/hr Documented by: Potassium Chloride 30 meq/Sodium Chloride 35 meq/Magnesium Sulfate 5 meq/Potassium Phosphate 15 mmol/Calcium Gluconate 4.65 meq/Amino Acids/ Electrolytes/Dextrose 389 mls @ 60 mls/hr IVCONT DAILY@1800 [facility] Stop: 05/04/21 17:58 Last Admin: 05/04/21 12:10 Dose: 60 mls/hr Documented by: Fat Emulsion Intravenous (Intralipid) 216 mls @ 18 mls/hr IVCONT BID@0600,1800 [facility] Stop: 05/04/21 17:59 Last Admin: 05/04/21 05:55 Dose: 18 mls/hr Documented by: Potassium Chloride 30 meq/Sodium Chloride 35 meq/Magnesium Sulfate 5 meq /Potassium Phosphate 15 mmol/Calcium Gluconate 4.65 meq/Amino Acids/Electrolytes/Dextrose 1,040 mls @ 59.372 mls/hr IVCONT DAILY@1800 [facility] Stop: 05/05/21 11:30 Potassium Chloride 30 meq/Sodium Chloride 35 meq/Magnesium Sulfate 5 meq/Potassium Phosphate 15 mmol/Calcium Gluconate 4.65 meq/Amino Acids /Electrolytes/Dextrose 389 mls @ 60 mls/hr IVCONT DAILY@1130 [facility] Stop: 05/05/21 17:58 Fat Emulsion Intravenous (Intralipid) 216 mls @ 18 mls/hr IVCONT BID@0600,1800 [facility] Stop: 05/05/21 17:59 Lorazepam (Lorazepam 2 Mg/Ml Vial) 0.25 mg IVPUSH Q6H PRN PRN Reason: Anxiety Last Admin: 05/04/21 09:54 Dose: 0.25 mg Documented by: Methylprednisolone Sodium Succinate (Methylprednisolone Sod Succ 40 Mg/Ml Vial) 20 mg IV DAILY [facility] Multi-Ingred Medicated Throat [place] (Throat [place], Medicated 20 Ml Bottle) 1 spray MUCOUS MEM Q2H PRN PRN Reason: throat discomfort Last Admin: 04/30/21 12:06 Dose: 1 spray Documented by: Non-Formulary Medication (Norgestimate-Ethinyl Estradiol [Estarylla]) 1 tab PO DAILY [facility] Last Admin: 05/04/21 09:20 Dose: 1 tab Documented by: Omeprazole (Omeprazole 40 Mg Capsule.Dr) 40 mg PO DAILY@0630 [facility] Last Admin: 05/04/21 05:16 Dose: 40 mg Documented by: Ondansetron HCl (Ondansetron Hcl 4 Mg/2 Ml Vial) 4 mg IVPUSH Q6H PRN PRN Reason: nausea Last Admin: 04/29/21 19:45 Dose: 4 mg Documented by: Oxycodone HCl (Oxycodone Hcl Immed Release 5 Mg Tablet) 5 mg PO Q4H PRN PRN Reason: Pain, Moderate (Pain Scale 4-6 Oxycodone HCl (Oxycodone Hcl Immed Release 5 Mg Tablet) 10 mg PO Q4H PRN PRN Reason: Pain, Severe (Pain Scale 7-10) Last Admin: 05/04/21 13:12 Dose: 10 mg Documented by: Pharmacy Consult (Consult Rx Perform Med Rec) 1 each MISCELLANE ONCE PRN PRN Reason: Consult order Sodium Chloride (0.9 % Sodium Chloride Flush 3 Ml Syringe) 3 ml IVFLUSH QSHIFT [facility] Last Admin: 05/04/21 07:46 Dose: Not Given Documented by: Vancomycin HCl (Vancomycin Hcl 125 Mg Capsule) 125 mg PO QID [facility] Last Admin: 05/04/21 12:06 Dose: 125 mg Documented by: Time Spent With Patient Time: Total time spent is greater than 50% in coordination of care (as documented) at patient's floor/unit and/or counseling patient: Quality Stroke Does the patient have a stroke diagnosis?: No VTE Prior VTE?: No VTE Risk Level:: Medical - moderate - high VTE Device Contraindication: Treatment Not Indicated VTE Drug Contraindication: N/A - Med Ordered
[2021-05-04] MEDS: 0.9 % Sodium Chloride Flush 3 ML SYRINGE IVFLUSH ×2 (15:30→21:21)
[2021-05-04 16:00] VITALS: BP 144/90; PULSE 88; RESP 18; TEMP 36.5; O2SAT 99
[2021-05-04 20:00] VITALS: BP 146/90; PULSE 90; RESP 18; TEMP 36.7; O2SAT 98
[2021-05-04] MEDS: Lactated Ringers 1,000 ML 75 ML IVCONT (21:16)
[2021-05-05] VITALS (7 sets, daily range): BP systolic 122–171; BP diastolic 74–98; PULSE 70–98; RESP 14–18; TEMP 36.4–37.4; O2SAT 96–99
[2021-05-05] MEDS: oxyCODONE HCl Immed Release 5 MG TABLET 10 MG PO ×5 (02:30→21:38)
[2021-05-05] MEDS: Acetaminophen 325 MG TABLET 650 MG PO ×4 (02:31→21:37)
[2021-05-05] MEDS: metroNIDAZOLE/NS 500 MG/100 ML PIGGYBACK 100 MG IV (04:58)
[2021-05-05] MEDS: LORazepam 2 MG/ML VIAL 0.25 MG IVPUSH (05:02)
[2021-05-05 05:54] LABS: Hematocrit 31.5 % (37.0-47.0); Hemoglobin 10.5 g/dl (12.0-16.0); Mean Corpuscular HGB Conc 33.3 g/dl (31.0-35.0); Mean Corpuscular Hemoglobin 31.3 pg (27.0-33.0); Mean Corpuscular Volume 93.8 fL (80.0-98.0); Mean Platelet Volume 9.1 fL (9.4-12.3); Platelet Count 291 X10*3/uL (160-400); Red Blood Count 3.36 X10*6/uL (4.20-5.50); Red Cell Distribution Width 13.1 % (11.0-16.0); White Blood Count 8.5 X10*3/uL (4.8-10.8)
[2021-05-05 06:11] LABS: Anion Gap 10 (12-20); Blood Urea Nitrogen 9 mg/dL (9-16); Calcium 8.5 mg/dL (8.4-10.2); Carbon Dioxide 25 mmol/L (22-29); Chloride 107 mmol/L (96-108); Creatinine Clr Calc Pharmacy 110.6; Estimated Glomerular Filt Rate > 60; Glucose Random 128 mg/dL (60-115); Potassium 3.4 mmol/L (3.3-5.1); Sodium 139 mmol/L (135-145)
[2021-05-05] MEDS: Omeprazole 40 MG CAPSULE.DR PO (06:24)
[2021-05-05] MEDS: Fat Emulsions 20% 250 ML 18 ML IVCONT (06:26)
[2021-05-05 08:58] LABS: Albumin Level 3.2 g/dL (3.5-5.0); Magnesium 1.9 mg/dL (1.6-2.6)
--- NOTE | 2021-05-05 09:04 | PM.PNGS ---
Subjective Subjective Date of Service: 05/05/21 Interval history: Tolerating clear liquids well Denies nausea or vomiting Denies pain Has been ambulating well Has had good BMs and flatus Physical Exam Vital Signs: Vital Signs: Last Vital Signs Temp 98.1 F 05/05/21 07:16 Pulse 87 05/05/21 07:16 Resp 18 05/05/21 07:16 BP 156/98 H 05/05/21 07:16 Pulse Ox 99 05/05/21 07:16 BMI result Body Mass Index 21.0 Const: General: comfortable and no acute distress Resp: Effort & Inspection: normal respiratory effort GI: Other: Incision clean and dry Palpation (GI): Soft to palpation, not firm and no guarding Objective Data Active Medications Acetaminophen (Acetaminophen 325 Mg Tablet) 650 mg PO Q6H [facility] Last Admin: 05/05/21 02:31 Dose: 650 mg Documented by: IBRAHIMA Clonazepam (Clonazepam 0.5 Mg Tablet) 0.5 mg PO TID PRN PRN Reason: anxiety Dicyclomine HCl (Dicyclomine Hcl 10 Mg Capsule) 20 mg PO QIDACHS PRN PRN Reason: GI Upset Diphenhydramine HCl (Diphenhydramine Hcl 50 Mg/Ml Vial) 25 mg IVPUSH Q6H PRN PRN Reason: Itching Last Admin: 05/04/21 21:15 Dose: 25 mg Documented by: IBRAHIMA Enoxaparin Sodium (Enoxaparin Sodium 40 Mg/0.4 Ml Syringe) 40 mg SUBCUT DAILY [facility] Last Admin: 05/04/21 09:20 Dose: Not Given Documented by: ALVARO Non-Admin Reason: Patient Refused Hydromorphone HCl (Hydromorphone Hcl 1 Mg/Ml Syringe) 1 mg IVPUSH Q2H PRN; Protocol PRN Reason: Pain, Severe (Pain Scale 7-10) Last Admin: 05/04/21 05:53 Dose: 1 mg Documented by: JUANA Metronidazole (Flagyl) 500 mg in 100 mls @ 100 mls/hr IV Q8H [facility] Last Infusion: 05/05/21 06:15 Dose: 0 mls/hr Documented by: IBRAHIMA Lactated Ringer's (Lr) 1,000 mls @ 75 mls/hr IVCONT .[id number] [facility] Last Admin: 05/04/21 21:16 Dose: 75 mls/hr Documented by: IBRAHIMA Potassium Chloride 30 meq/Sodium Chloride 35 meq/Magnesium Sulfate 5 meq/Potassium Phosphate 15 mmol/Calcium Gluconate 4.65 meq/Amino Acids/Electrolytes/Dextrose 1,040 mls @ 59.372 mls/hr IVCONT DAILY@1800 [facility] Stop: 05/05/21 11:30 Last Admin: 05/04/21 18:26 Dose: 59.37 mls/hr Documented by: ALVARO Potassium Chloride 30 meq/Sodium Chloride 35 meq/Magnesium Sulfate 5 meq/Potassium Phosphate 15 mmol/Calcium Gluconate 4.65 meq/Amino Acids/Electrolytes/Dextrose 389 mls @ 60 mls/hr IVCONT DAILY@1130 [facility] Stop: 05/05/21 17:58 Fat Emulsion Intravenous (Intralipid) 216 mls @ 18 mls/hr IVCONT BID@0600,1800 [facility] Stop: 05/05/21 17:59 Last Admin: 05/05/21 06:26 Dose: 18 mls/hr Documented by: IBRAHIMA Methylprednisolone Sodium Succinate (Methylprednisolone Sod Succ 40 Mg/Ml Vial) 20 mg IV DAILY [facility] Multi-Ingred Medicated Throat [place] (Throat [place], Medicated 20 Ml Bottle) 1 spray MUCOUS MEM Q2H PRN PRN Reason: throat discomfort Last Admin: 04/30/21 12:06 Dose: 1 spray Documented by: ALVARO Non-Formulary Medication (Norgestimate-Ethinyl Estradiol [Estarylla]) 1 tab PO DAILY [facility] Last Admin: 05/04/21 09:20 Dose: 1 tab Documented by: ALVARO Omeprazole (Omeprazole 40 Mg Capsule.Dr) 40 mg PO DAILY@0630 [facility] Last Admin: 05/05/21 06:24 Dose: 40 mg Documented by: IBRAHIMA Ondansetron HCl (Ondansetron Hcl 4 Mg/2 Ml Vial) 4 mg IVPUSH Q6H PRN PRN Reason: nausea Last Admin: 04/29/21 19:45 Dose: 4 mg Documented by: ODRISHarvey Oxycodone HCl (Oxycodone Hcl Immed Release 5 Mg Tablet) 5 mg PO Q4H PRN PRN Reason: Pain, Moderate (Pain Scale 4-6 Oxycodone HCl (Oxycodone Hcl Immed Release 5 Mg Tablet) 10 mg PO Q4H PRN PRN Reason: Pain, Severe (Pain Scale 7-10) Last Admin: 05/05/21 06:24 Dose: 10 mg Documented by: IBRAHIMA Pharmacy Consult (Consult Rx Perform Med Rec) 1 each MISCELLANE ONCE PRN PRN Reason: Consult order Sodium Chloride (0.9 % Sodium Chloride Flush 3 Ml Syringe) 3 ml IVFLUSH QSHIFT [facility] Last Admin: 05/04/21 21:21 Dose: 3 ml Documented by: IBRAHIMA Vancomycin HCl (Vancomycin Hcl 125 Mg Capsule) 125 mg PO QID [facility] Last Admin: 05/04/21 21:16 Dose: 125 mg Documented by: IBRAHIMA Zolpidem Tartrate (Zolpidem Tartrate 5 Mg Tablet) 5 mg PO BEDTIME PRN PRN Reason: Insomnia Labs CBC & Chem 7: 05/05/21 05:39 05/05/21 05:39 Labs: Laboratory Results - last 24 hr 05/04/21 05/05/21 05/05/21 05:57 05:39 05:39 MCV 93.8 MCH 31.3 MCHC 33.3 RDW 13.1 Plt Count 291 MPV 9.1 L Absolute Nucleated RBC 0.000 Nucleated RBC % (auto) 0.0 Anion Gap 10 L Estim Creat Clear Calc 110.6 Estimated GFR > 60 Random Glucose 128 H Calcium 8.5 Phosphorus 2.9 3.0 Magnesium 2.0 1.9 Albumin 3.2 L Procedures Date of Service Date of Service: 05/05/21 Progress Note: A&P Assessment and plan (1) Status post small bowel resection: Status: Acute Assessment and Plan: Doing very well postop Has good GI function Diet advanced Okay to DC PPN Okay to DC home once tolerating regular diet I can see her in the office to remove the matt in about 1-2 weeks Fall Risk Details Current Medications: Current Medications Acetaminophen (Acetaminophen 325 Mg Tablet) 650 mg PO Q6H [facility] Last Admin: 05/05/21 02:31 Dose: 650 mg Documented by: Clonazepam (Clonazepam 0.5 Mg Tablet) 0.5 mg PO TID PRN PRN Reason: anxiety Dicyclomine HCl (Dicyclomine Hcl 10 Mg Capsule) 20 mg PO QIDACHS PRN PRN Reason: GI Upset Diphenhydramine HCl (Diphenhydramine Hcl 50 Mg/Ml Vial) 25 mg IVPUSH Q6H PRN PRN Reason: Itching Last Admin: 05/04/21 21:15 Dose: 25 mg Documented by: Enoxaparin Sodium (Enoxaparin Sodium 40 Mg/0.4 Ml Syringe) 40 mg SUBCUT DAILY [facility] Last Admin: 05/04/21 09:20 Dose: Not Given Documented by: Hydromorphone HCl (Hydromorphone Hcl 1 Mg/Ml Syringe) 1 mg IVPUSH Q2H PRN; Protocol PRN Reason: Pain, Severe (Pain Scale 7-10) Last Admin: 05/04/21 05:53 Dose: 1 mg Documented by: Metronidazole (Flagyl) 500 mg in 100 mls @ 100 mls/hr IV Q8H [facility] Last Infusion: 05/05/21 06:15 Dose: Infused Documented by: Lactated Ringer's (Lr) 1,000 mls @ 75 mls/hr IVCONT .[id number] [facility] Last Admin: 05/04/21 21:16 Dose: 75 mls/hr Documented by: Potassium Chloride 30 meq/Sodium Chloride 35 meq/Magnesium Sulfate 5 meq/Potassium Phosphate 15 mmol/Calcium Gluconate 4.65 meq/Amino Acids/Electrolytes/Dextrose 1,040 mls @ 59.372 mls/hr IVCONT DAILY@1800 [facility] Stop: 05/05/21 11:30 Last Admin: 05/04/21 18:26 Dose: 59.37 mls/hr Documented by: Potassium Chloride 30 meq/Sodium Chloride 35 meq/Magnesium Sulfate 5 meq/Potassium Phosphate 15 mmol/Calcium Gluconate 4.65 meq/Amino Acids/Electrolytes/Dextrose 389 mls @ 60 mls/hr IVCONT DAILY@1130 [facility] Stop: 05/05/21 17:58 Fat Emulsion Intravenous (Intralipid) 216 mls @ 18 mls/hr IVCONT BID@0600,1800 [facility] Stop: 05/05/21 17:59 Last Admin: 05/05/21 06:26 Dose: 18 mls/hr Documented by: Methylprednisolone Sodium Succinate (Methylprednisolone Sod Succ 40 Mg/Ml Vial) 20 mg IV DAILY [facility] Multi-Ingred Medicated Throat [place] (Throat [place], Medicated 20 Ml Bottle) 1 spray MUCOUS MEM Q2H PRN PRN Reason: throat discomfort Last Admin: 04/30/21 12:06 Dose: 1 spray Documented by: Non-Formulary Medication (Norgestimate-Ethinyl Estradiol [Estarylla]) 1 tab PO DAILY [facility] Last Admin: 05/04/21 09:20 Dose: 1 tab Documented by: Omeprazole (Omeprazole 40 Mg Capsule.Dr) 40 mg PO DAILY@0630 [facility] Last Admin: 05/05/21 06:24 Dose: 40 mg Documented by: Ondansetron HCl (Ondansetron Hcl 4 Mg/2 Ml Vial) 4 mg IVPUSH Q6H PRN PRN Reason: nausea Last Admin: 04/29/21 19:45 Dose: 4 mg Documented by: Oxycodone HCl (Oxycodone Hcl Immed Release 5 Mg Tablet) 5 mg PO Q4H PRN PRN Reason: Pain, Moderate (Pain Scale 4-6 Oxycodone HCl (Oxycodone Hcl Immed Release 5 Mg Tablet) 10 mg PO Q4H PRN PRN Reason: Pain, Severe (Pain Scale 7-10) Last Admin: 05/05/21 06:24 Dose: 10 mg Documented by: Pharmacy Consult (Consult Rx Perform Med Rec) 1 each MISCELLANE ONCE PRN PRN Reason: Consult order Sodium Chloride (0.9 % Sodium Chloride Flush 3 Ml Syringe) 3 ml IVFLUSH QSHIFT [facility] Last Admin: 05/04/21 21:21 Dose: 3 ml Documented by: Vancomycin HCl (Vancomycin Hcl 125 Mg Capsule) 125 mg PO QID [facility] Last Admin: 05/04/21 21:16 Dose: 125 mg Documented by: Zolpidem Tartrate (Zolpidem Tartrate 5 Mg Tablet) 5 mg PO BEDTIME PRN PRN Reason: Insomnia Time Spent With Patient Time: Total time spent is greater than 50% in coordination of care (as documented) at patient's floor/unit and/or counseling patient: Quality Stroke Does the patient have a stroke diagnosis?: No VTE Prior VTE?: No VTE Risk Level:: Medical - moderate - high VTE Device Contraindication: Treatment Not Indicated VTE Drug Contraindication: N/A - Med Ordered
--- NOTE | 2021-05-05 09:37 | MHC.CLN ---
F/U DIET ADVANCED THIS MORNING TO REGULAR, BLAND. PATIENT WOULD LIKE TO CONTINUE ENSURE CLEAR TID. PROVIDES 720 KCAL, 24 G PROTEIN. PER MD NOTE, DISCONTINUE PPN. TOLERATED CLEAR LIQUIDS WITHOUT NAUSEA OR VOMITING. GOOD BMs AND FLATUS NOTED. FOLLOW FOR DIET TOLERANCE.
[2021-05-05] MEDS: methylPREDNISolone Sod Succ 40 MG/ML VIAL 20 MG IV (09:49)
[2021-05-05] MEDS: 0.9 % Sodium Chloride Flush 3 ML SYRINGE IVFLUSH ×3 (09:49→21:38)
[2021-05-05] MEDS: vancomycin HCL 125 MG CAPSULE PO (09:50)
[2021-05-05] MEDS: Lactated Ringers 1,000 ML 75 ML IVCONT (09:50)
[2021-05-05] MEDS: clonazePAM 0.5 MG TABLET PO ×2 (10:19→21:38)
--- NOTE | 2021-05-05 13:06 | P.PNIM_ITS ---
Subjective Subjective Date of Service: 05/05/21 Interval History: cc: abd pain interval history: improved today Cardiovascular Cardiovascular: Reports no additional cardiovascular complaints Respiratory Respiratory: Reports no additional respiratory complaints Physical Exam Vital Signs: Vital Signs: Last Vital Signs Temp 98.2 F 05/05/21 11:23 Pulse 98 05/05/21 11:23 Resp 18 05/05/21 11:23 BP 161/81 H 05/05/21 11:23 Pulse Ox 98 05/05/21 11:23 BMI result Body Mass Index 21.0 General: AO X 3, no acute distress Resp: CTA bilateral, no accessory muscles used CVS: S1,S2,RRR GI: soft, non tender, non distended Neuro: motor grossly intact, alert Psych: appropriate affect, appropriate insight Objective Data Active Medications Acetaminophen (Acetaminophen 325 Mg Tablet) 650 mg PO Q6H [facility] Last Admin: 05/05/21 09:50 Dose: 650 mg Documented by: MAKENZIE Clonazepam (Clonazepam 0.5 Mg Tablet) 0.5 mg PO TID PRN PRN Reason: anxiety Last Admin: 05/05/21 10:19 Dose: 0.5 mg Documented by: MAKENZIE Dicyclomine HCl (Dicyclomine Hcl 10 Mg Capsule) 20 mg PO QIDACHS PRN PRN Reason: GI Upset Diphenhydramine HCl (Diphenhydramine Hcl 50 Mg/Ml Vial) 25 mg IVPUSH Q6H PRN PRN Reason: Itching Last Admin: 05/04/21 21:15 Dose: 25 mg Documented by: IBRAHIMA Enoxaparin Sodium (Enoxaparin Sodium 40 Mg/0.4 Ml Syringe) 40 mg SUBCUT DAILY [facility] Last Admin: 05/05/21 09:50 Dose: Not Given Documented by: MAKENZIE Non-Admin Reason: Patient Refused Hydromorphone HCl (Hydromorphone Hcl 1 Mg/Ml Syringe) 1 mg IVPUSH Q2H PRN; Protocol PRN Reason: Pain, Severe (Pain Scale 7-10) Last Admin: 05/04/21 05:53 Dose: 1 mg Documented by: JUANA Metronidazole (Flagyl) 500 mg in 100 mls @ 100 mls/hr IV Q8H [facility] Last Infusion: 05/05/21 06:15 Dose: 0 mls/hr Documented by: IBRAHIMA Lactated Ringer's (Lr) 1,000 mls @ 75 mls/hr IVCONT .[id number] [facility] Last Admin: 05/05/21 09:50 Dose: 75 mls/hr Documented by: MAKENZIE Potassium Chloride 30 meq/Sodium Chloride 35 meq/Magnesium Sulfate 5 meq/Potassium Phosphate 15 mmol/Calcium Gluconate 4.65 meq/Amino Acids/Electrolytes/Dextrose 389 mls @ 60 mls/hr IVCONT DAILY@1130 [facility] Stop: 05/05/21 17:58 Fat Emulsion Intravenous (Intralipid) 216 mls @ 18 mls/hr IVCONT BID@0600,1800 [facility] Stop: 05/05/21 17:59 Last Admin: 05/05/21 06:26 Dose: 18 mls/hr Documented by: IBRAHIMA Methylprednisolone Sodium Succinate (Methylprednisolone Sod Succ 40 Mg/Ml Vial) 20 mg IV DAILY [facility] Last Admin: 05/05/21 09:49 Dose: 20 mg Documented by: MAKENZIE Multi-Ingred Medicated Throat [place] (Throat [place], Medicated 20 Ml Bottle) 1 spray MUCOUS MEM Q2H PRN PRN Reason: throat discomfort Last Admin: 04/30/21 12:06 Dose: 1 spray Documented by: ALVARO Non-Formulary Medication (Norgestimate-Ethinyl Estradiol [Estarylla]) 1 tab PO DAILY [facility] Last Admin: 05/05/21 09:49 Dose: 1 tab Documented by: MAKENZIE Omeprazole (Omeprazole 40 Mg Capsule.Dr) 40 mg PO DAILY@0630 [facility] Last Admin: 05/05/21 06:24 Dose: 40 mg Documented by: IBRAHIMA Ondansetron HCl (Ondansetron Hcl 4 Mg/2 Ml Vial) 4 mg IVPUSH Q6H PRN PRN Reason: nausea Last Admin: 04/29/21 19:45 Dose: 4 mg Documented by: FABIÁNRISHarvey Oxycodone HCl (Oxycodone Hcl Immed Release 5 Mg Tablet) 5 mg PO Q4H PRN PRN Reason: Pain, Moderate (Pain Scale 4-6 Oxycodone HCl (Oxycodone Hcl Immed Release 5 Mg Tablet) 10 mg PO Q4H PRN PRN Reason: Pain, Severe (Pain Scale 7-10) Last Admin: 05/05/21 10:19 Dose: 10 mg Documented by: MAKENZIE Pharmacy Consult (Consult Rx Perform Med Rec) 1 each MISCELLANE ONCE PRN PRN Reason: Consult order Simethicone (Simethicone 80 Mg Tab.Chew) 80 mg PO QIDWMHS PRN PRN Reason: gas pains Sodium Chloride (0.9 % Sodium Chloride Flush 3 Ml Syringe) [facility] Last Admin: 05/05/21 09:49 Dose: 3 ml Documented by: MAKENZIE Vancomycin HCl (Vancomycin Hcl 125 Mg Capsule) 125 mg PO QID [facility] Last Admin: 05/05/21 09:50 Dose: 125 mg Documented by: MAKENZIE Zolpidem Tartrate (Zolpidem Tartrate 5 Mg Tablet) 5 mg PO BEDTIME PRN PRN Reason: Insomnia Labs CBC & Chem 7: 05/05/21 05:39 05/05/21 05:39 Labs: Laboratory Results - last 24 hr 05/05/21 05/05/21 05:39 05:39 MCV 93.8 MCH 31.3 MCHC 33.3 RDW 13.1 Plt Count 291 MPV 9.1 L Absolute Nucleated RBC 0.000 Nucleated RBC % (auto) 0.0 Anion Gap 10 L Estim Creat Clear Calc 110.6 Estimated GFR > 60 Random Glucose 128 H Calcium 8.5 Phosphorus 3.0 Magnesium 1.9 Albumin 3.2 L Assessment and Plan (1) Status post small bowel resection: Status: Acute (2) Small bowel obstruction: Status: Acute (3) C. difficile colitis: Status: Acute Plan 45-year-old female presented with abdominal pain. intractable abdominal pain 2/2 SBO Status post resection of obstructed terminal ileum with ileo colonic anastomosis to the right colon Pod 7 Abdominal pain improving, passing gas and bowel movement advanced to solids change to po prednisone taper if tolerates solilds plan to dc tomorrow C diff colitis completed 12 days, will dc skin rash Resolved Benadryl IV p.r.n. continue to monitor Anxiety attacks Continue IV Ativan as needed Insomnia Zolpidem as needed DVT prophylaxis with Lovenox reason for continued hospitalization: Post surgery status, pending improvement of her GI function and decrease of pain. Quality Stroke Does the patient have a stroke diagnosis?: No VTE Prior VTE?: No VTE Risk Level:: Medical - moderate - high VTE Device Contraindication: Treatment Not Indicated VTE Drug Contraindication: N/A - Med Ordered
[2021-05-05] MEDS: Simethicone 80 MG TAB.CHEW PO (13:07)
[2021-05-05] MEDS: Dicyclomine HCl 10 MG CAPSULE 20 MG PO (13:10)
--- NOTE | 2021-05-05 13:43 | P.PNGI_ITS ---
Subjective Subjective Date of Service: 05/05/21 Interval History: some gas discomfort this am Critical Care Time (minutes): 0 Physical Exam Vital Signs: Vital Signs: Last Vital Signs Temp 98.2 F 05/05/21 11:23 Pulse 98 05/05/21 11:23 Resp 18 05/05/21 11:23 BP 161/81 H 05/05/21 11:23 Pulse Ox 98 05/05/21 11:23 BMI result Body Mass Index 21.0 Const: General: cooperative GI: Other: abdomen is sl distended, but soft and nontender Objective Data Labs CBC & Chem 7: 05/05/21 05:39 05/05/21 05:39 Procedures Date of Service Date of Service: 05/05/21 Progress Note: A&P Assessment and plan (1) Status post small bowel resection: Status: Acute Assessment and Plan: doing well advised to use dicyclomine if needed continue prednisone taper. Fall Risk Details Current Medications: Current Medications Acetaminophen (Acetaminophen 325 Mg Tablet) 650 mg PO Q6H [facility] Last Admin: 05/05/21 09:50 Dose: 650 mg Documented by: Clonazepam (Clonazepam 0.5 Mg Tablet) 0.5 mg PO TID PRN PRN Reason: anxiety Last Admin: 05/05/21 10:19 Dose: 0.5 mg Documented by: Dicyclomine HCl (Dicyclomine Hcl 10 Mg Capsule) 20 mg PO QIDACHS PRN PRN Reason: GI Upset Last Admin: 05/05/21 13:10 Dose: 20 mg Documented by: Diphenhydramine HCl (Diphenhydramine Hcl 50 Mg/Ml Vial) 25 mg IVPUSH Q6H PRN PRN Reason: Itching Last Admin: 05/04/21 21:15 Dose: 25 mg Documented by: Enoxaparin Sodium (Enoxaparin Sodium 40 Mg/0.4 Ml Syringe) 40 mg SUBCUT DAILY [facility] Last Admin: 05/05/21 09:50 Dose: Not Given Documented by: Hydromorphone HCl (Hydromorphone Hcl 1 Mg/Ml Syringe) 1 mg IVPUSH Q2H PRN; Protocol PRN Reason: Pain, Severe (Pain Scale 7-10) Last Admin: 05/04/21 05:53 Dose: 1 mg Documented by: Multi-Ingred Medicated Throat [place] (Throat [place], Medicated 20 Ml Bottle) 1 spray MUCOUS MEM Q2H PRN PRN Reason: throat discomfort Last Admin: 04/30/21 12:06 Dose: 1 spray Documented by: Non-Formulary Medication (Norgestimate-Ethinyl Estradiol [Estarylla]) 1 tab PO DAILY [facility] Last Admin: 05/05/21 09:49 Dose: 1 tab Documented by: Omeprazole (Omeprazole 40 Mg Capsule.Dr) 40 mg PO DAILY@0630 [facility] Last Admin: 05/05/21 06:24 Dose: 40 mg Documented by: Ondansetron HCl (Ondansetron Hcl 4 Mg/2 Ml Vial) 4 mg IVPUSH Q6H PRN PRN Reason: nausea Last Admin: 04/29/21 19:45 Dose: 4 mg Documented by: Oxycodone HCl (Oxycodone Hcl Immed Release 5 Mg Tablet) 5 mg PO Q4H PRN PRN Reason: Pain, Moderate (Pain Scale 4-6 Oxycodone HCl (Oxycodone Hcl Immed Release 5 Mg Tablet) 10 mg PO Q4H PRN PRN Reason: Pain, Severe (Pain Scale 7-10) Last Admin: 05/05/21 10:19 Dose: 10 mg Documented by: Pharmacy Consult (Consult Rx Perform Med Rec) 1 each MISCELLANE ONCE PRN PRN Reason: Consult order Prednisone (Prednisone 20 Mg Tablet) 20 mg PO DAILY [facility] Simethicone (Simethicone 80 Mg Tab.Chew) 80 mg PO QIDWMHS PRN PRN Reason: gas pains Last Admin: 05/05/21 13:07 Dose: 80 mg Documented by: Sodium Chloride (0.9 % Sodium Chloride Flush 3 Ml Syringe) 3 ml IVFLUSH QSHIFT [facility] Last Admin: 05/05/21 09:49 Dose: 3 ml Documented by: Zolpidem Tartrate (Zolpidem Tartrate 5 Mg Tablet) 5 mg PO BEDTIME PRN PRN Reason: Insomnia Time Spent With Patient Time: Total time spent is greater than 50% in coordination of care (as documented) at patient's floor/unit and/or counseling patient: Quality Stroke Does the patient have a stroke diagnosis?: No VTE Prior VTE?: No VTE Risk Level:: Medical - moderate - high VTE Device Contraindication: Treatment Not Indicated VTE Drug Contraindication: N/A - Med Ordered
[2021-05-05] MEDS: Zolpidem Tartrate 5 MG TABLET PO (21:38)
[2021-05-06] MEDS: oxyCODONE HCl Immed Release 5 MG TABLET 10 MG PO ×2 (03:20→09:02)
[2021-05-06] MEDS: Acetaminophen 325 MG TABLET 650 MG PO ×2 (03:20→08:57)
[2021-05-06 04:00] VITALS: BP 161/84; PULSE 84; RESP 14; TEMP 37.6; O2SAT 97
[2021-05-06] MEDS: Omeprazole 40 MG CAPSULE.DR PO (06:05)
[2021-05-06 06:48] LABS: Anion Gap 14 (12-20); Blood Urea Nitrogen 11 mg/dL (9-16); Calcium 8.6 mg/dL (8.4-10.2); Carbon Dioxide 26 mmol/L (22-29); Chloride 106 mmol/L (96-108); Creatinine Clr Calc Pharmacy 100.9; Estimated Glomerular Filt Rate > 60; Glucose Fasting 97 mg/dL (60-99); Hematocrit 31.7 % (37.0-47.0); Hemoglobin 10.5 g/dl (12.0-16.0); Mean Corpuscular HGB Conc 33.1 g/dl (31.0-35.0); Mean Corpuscular Hemoglobin 30.8 pg (27.0-33.0); Mean Platelet Volume 9.1 fL (9.4-12.3); Platelet Count 307 X10*3/uL (160-400); Potassium 3.5 mmol/L (3.3-5.1); Red Blood Count 3.41 X10*6/uL (4.20-5.50); Sodium 142 mmol/L (135-145); White Blood Count 6.9 X10*3/uL (4.8-10.8)
[2021-05-06 07:37] VITALS: BP 160/97; PULSE 80; RESP 18; TEMP 36.6; O2SAT 99
[2021-05-06] MEDS: predniSONE 20 MG TABLET PO (08:57)
[2021-05-06] MEDS: Simethicone 80 MG TAB.CHEW PO (09:02)
[2021-05-06] MEDS: clonazePAM 0.5 MG TABLET PO (09:02)
[2021-05-06] MEDS: Dicyclomine HCl 10 MG CAPSULE 20 MG PO (09:02)
--- NOTE | 2021-05-06 10:03 | P.DS_ITS ---
DS: Providers Provider Date of Service: 05/06/21 Date of admission: 04/23/21 13:13 Primary care physician: Rosa Rice NP Consults: 04/23/21 13:10 Consult to Gastroenterology Routine Consulting Provider: Juan Carlos Mejia Reason for consultation: cdif, ?ibd 04/25/21 19:41 Consult to General Surgery Stat Consulting Provider: Candace Wylie Reason for consultation: High grade SBO with transition point DS: Diagnosis Discharge Diagnosis (1) Status post small bowel resection: Status: Acute DS: Summary Hospital Course Hospital Course: from initial hpi: Chief Complaint: Abdominal pain 45-year-old female presented with abdominal pain.? Patient has had multiple admissions with the last few months for abdominal pain, pancolitis.? Exact etiology still to be determined, is being treated like IBD.? Most recently discharged on steroid taper 04/07/21, after 1 day admission for abdominal pain, at that time she did receive 1 dose of Levaquin.? She was feeling well for about a week, then began to have abdominal pain again, decreased appetite, inability to tolerate p.o. with nausea vomiting.? She was seen by Gastroenterology who ordered KUB which showed mild constipation, and C diff which was positive.? Patient continued to have severe pain so she came to the hospital.? In e.d., CRP has decreased from 12.56 on April 19 to 2.69, no significant electrolyte abnormalities, WBC mildly elevated at 12.2, pain uncontrolled. hospital course: Patient was admitted for intractable abdominal pain. Was treated for C diff colitis and given IV steroids for possible IBD flare. Course was then complicated by small bowel obstruction. Patient underwent resection of obstructive terminal ileum with the ileocolonic anastomosis to the right colon. 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 Patient's bowel function slowly improved, she was advanced solids, had successful bowel movements. Her prednisone will be tapered off, as IBD is now unlikely her mesalamine was discontinued. She completed her C diff treatment with vanco and Flagyl. Course was also complicated by skin rash which was treated with Benadryl and anxiety which was treated with benzodiazepines. Patient is feeling much better will be discharged home. Time Spent with Patient Time attestation: Total time spent providing and/or coordinating discharge services: Discharge coordination time: Greater than 30 minutes Quality: Stroke Does the patient have a stroke diagnosis?: No Physical Exam Vital Signs: Vital Signs: Last Vital Signs Temp 97.9 F 05/06/21 07:37 Pulse 80 05/06/21 07:37 Resp 18 05/06/21 07:37 BP 160/97 H 05/06/21 07:37 Pulse Ox 99 05/06/21 07:37 BMI result Body Mass Index 21.0 Const General:?cooperative GI Other: abdomen is sl distended, but soft and nontender DS: Data Data Completed and Pending Completed studies during hospitalization [Text1]: Pending at discharge 04/28/21 14:23 Surgical [PTH] Routine Procedures Excision of Ileum, Via Natural or Artificial Opening Endoscopic, Diagnostic (09/09/20) Excision of Large Intestine, Via Natural or Artificial Opening Endoscopic, Diagnostic (03/16/21) Labs on day of discharge: Laboratory Results - last 24 hr 05/06/21 05/06/21 05:51 05:51 WBC 6.9 RBC 3.41 L Hgb 10.5 L Hct 31.7 L MCV 93.0 MCH 30.8 MCHC 33.1 RDW 13.0 Plt Count 307 MPV 9.1 L Absolute Nucleated RBC 0.000 Nucleated RBC % (auto) 0.0 Sodium 142 Potassium 3.5 Chloride 106 Carbon Dioxide 26 Anion Gap 14 BUN 11 Creatinine 0.57 Estim Creat Clear Calc 100.9 Estimated GFR > 60 Fasting Glucose 97 Calcium 8.6 Discharge Plan Discharge Patient Disposition: Home, Self-Care Discharge Diagnosis: sbo Referrals: Rosa Rice AGRISCIENCE TECHNOLOGY INSTRUCTOR [Primary Care Provider] - 1 Week Discharge Medications: New prednisone 10 mg tablet 10 mg PO DAILY Qty: 5 0RF Continued norgestimate-ethinyl estradiol [Estarylla] 0.25-35 mg-mcg tablet 1 tab PO DAILY 0RF clonazepam 0.5 mg tablet 0.5 mg PO TID 0RF zolpidem 12.5 mg tablet,ext release multiphase 1 tab PO BEDTIME PRN (Reason: Sleep) 0RF dicyclomine 20 mg Tablet 20 mg PO QID 0RF omeprazole 40 mg capsule,delayed release(DR/EC) 1 cap PO QAM 0RF ondansetron 4 mg tablet,disintegrating 1 tab PO DAILY 0RF oxycodone 5 mg tablet 1 tab PO TID PRN (Reason: Pain (Scale Score 7-10)) Qty: 10 0RF Discontinued vancomycin 125 mg capsule 125 mg PO QID 10 Days Qty: 40 0RF mesalamine [Delzicol] 400 mg capsule (with del rel tablets) 2 cap PO TID 0RF prednisone 10 mg tablet 30 mg PO DAILY 0RF Discharge Orders: Discharge Order (Routine); Ordered 05/06/21 Ordered By: Jesus Arriaga Diet: advance to usual diet Activity on Discharge: As tolerated Stand Alone Forms: Patient Portal Discharge page Care Plan Goals: recovery Health Concerns: sbo Plan of Treatment: prednisone taper, follow up with surgery Assessment: see above
[2021-05-06] MEDS: Fluconazole 150 MG TABLET PO (10:48)
--- NOTE | 2021-05-06 11:06 | MHC.CM.PN ---
NURSE LIQUID FERTILIZER SERVICER NOTE ELECTRONIC MEDICAL RECORD REVIEWED ALONG WITH CASE DISCUSSED WITH STAFF NURSE AND HOSPITALSIT. MET WITH PATIENT SHE IS AWARE THAT SHE WILL BE DISCHARGED HOME TODAY , INIAITALLY WE HAD [facility] SERVICES FOR HER, SHE DOES NOT FEEL SHE NEEDS THENM AT THIS TIME ALSO SPOKE WITH HOSPITLASIT NO VNA SERVICES NEEDED DISCHARGE PLAN HOME NO SERVICES TRANSPORTATION FAMILY PCP RENATE ANATOLIYSue PATIENT BECAME VERY TEARY ANDEXPRESSED THINGS THAT HAVE HAPPENED TO HER OVER THE LAST TWO YEARS TO HERSELF WELL HER FAMILY. (SHE IS AWARE THAT A SHELTER CASE MANAGER TO HER CHILDREN AND HER MOTHER WHOM SHE CARES FOR SHE ALOS EMIOTINONALLY AND OHYSICALLY NEEDS TO CARE FOR HERSELD, I ENCOURAGED HER TO TALK WITH HER PCP (WHOM SHE REPOTS SHE HAS GOOD COMMUNICATION WITH ) AND MAYBE NEEDS TO DISCUSS THESE CONCERNS AND EVENTS WITH A MENTAL HEALTH COUNSELOR OR NEON TECHNICIAN WHICH SHE WAS THINKING ABOUT BUT [employer] PUTTING IT OFF, SHE THANKED ME FOR LISTENING AND CARING AND BEING SUPPORTATIVE, HER WILL,BE HERE SOON FOR TRANSPORTATION
[2021-05-06 11:36] VITALS: BP 126/78; PULSE 97; RESP 18; TEMP 36.5; O2SAT 98
--- NOTE | 2021-05-06 11:47 | PM.PNGS ---
Subjective Subjective Date of Service: 05/06/21 Interval history: Tolerating diet well Has flatus and BMs Says she feels great Physical Exam Vital Signs: Vital Signs: Last Vital Signs Temp 97.7 F 05/06/21 11:36 Pulse 97 05/06/21 11:36 Resp 18 05/06/21 11:36 BP 126/78 05/06/21 11:36 Pulse Ox 98 05/06/21 11:36 BMI result Body Mass Index 21.0 Const: General: comfortable and no acute distress GI: Other: Incision clean and dry Palpation (GI): Soft to palpation, not firm, nontender and no guarding Objective Data Active Medications Acetaminophen (Acetaminophen 325 Mg Tablet) 650 mg PO Q6H [facility] Last Admin: 05/06/21 08:57 Dose: 650 mg Documented by: JESSI Clonazepam (Clonazepam 0.5 Mg Tablet) 0.5 mg PO TID PRN PRN Reason: anxiety Last Admin: 05/06/21 09:02 Dose: 0.5 mg Documented by: JESSI Dicyclomine HCl (Dicyclomine Hcl 10 Mg Capsule) 20 mg PO QIDACHS PRN PRN Reason: GI Upset Last Admin: 05/06/21 09:02 Dose: 20 mg Documented by: JESSI Diphenhydramine HCl (Diphenhydramine Hcl 50 Mg/Ml Vial) 25 mg IVPUSH Q6H PRN PRN Reason: Itching Last Admin: 05/04/21 21:15 Dose: 25 mg Documented by: IBRAHIMA Enoxaparin Sodium (Enoxaparin Sodium 40 Mg/0.4 Ml Syringe) 40 mg SUBCUT DAILY [facility] Last Admin: 05/06/21 08:58 Dose: Not Given Documented by: JESSI Non-Admin Reason: Patient Refused Hydromorphone HCl (Hydromorphone Hcl 1 Mg/Ml Syringe) 1 mg IVPUSH Q2H PRN; Protocol PRN Reason: Pain, Severe (Pain Scale 7-10) Last Admin: 05/04/21 05:53 Dose: 1 mg Documented by: JUANA Multi-Ingred Medicated Throat [place] (Throat [place], Medicated 20 Ml Bottle) 1 spray MUCOUS MEM Q2H PRN PRN Reason: throat discomfort Last Admin: 04/30/21 12:06 Dose: 1 spray Documented by: ALVARO Non-Formulary Medication (Norgestimate-Ethinyl Estradiol [Estarylla]) 1 tab PO DAILY [facility] Last Admin: 05/06/21 08:57 Dose: 1 tab Documented by: JESSI Omeprazole (Omeprazole 40 Mg Capsule.Dr) 40 mg PO DAILY@0630 [facility] Last Admin: 05/06/21 06:05 Dose: 40 mg Documented by: MATHEW Ondansetron HCl (Ondansetron Hcl 4 Mg/2 Ml Vial) 4 mg IVPUSH Q6H PRN PRN Reason: nausea Last Admin: 04/29/21 19:45 Dose: 4 mg Documented by: ODRISHarvey Oxycodone HCl (Oxycodone Hcl Immed Release 5 Mg Tablet) 5 mg PO Q4H PRN PRN Reason: Pain, Moderate (Pain Scale 4-6 Oxycodone HCl (Oxycodone Hcl Immed Release 5 Mg Tablet) 10 mg PO Q4H PRN PRN Reason: Pain, Severe (Pain Scale 7-10) Last Admin: 05/06/21 09:02 Dose: 10 mg Documented by: JESSI Pharmacy Consult (Consult Rx Perform Med Rec) 1 each MISCELLANE ONCE PRN PRN Reason: Consult order Prednisone (Prednisone 20 Mg Tablet) 20 mg PO DAILY [facility] Last Admin: 05/06/21 08:57 Dose: 20 mg Documented by: JESSI Simethicone (Simethicone 80 Mg Tab.Chew) 80 mg PO QIDWMHS PRN PRN Reason: gas pains Last Admin: 05/06/21 09:02 Dose: 80 mg Documented by: JESSI Sodium Chloride (0.9 % Sodium Chloride Flush 3 Ml Syringe) 3 ml IVFLUSH QSHIFT [facility] Last Admin: 05/06/21 08:57 Dose: Not Given Documented by: JESSI Non-Admin Reason: IV Running Zolpidem Tartrate (Zolpidem Tartrate 5 Mg Tablet) 5 mg PO BEDTIME PRN PRN Reason: Insomnia Last Admin: 05/05/21 21:38 Dose: 5 mg Documented by: MATHEW Labs CBC & Chem 7: 05/06/21 05:51 05/06/21 05:51 Labs: Laboratory Results - last 24 hr 05/06/21 05/06/21 05:51 05:51 MCV 93.0 MCH 30.8 MCHC 33.1 RDW 13.0 Plt Count 307 MPV 9.1 L Absolute Nucleated RBC 0.000 Nucleated RBC % (auto) 0.0 Anion Gap 14 Estim Creat Clear Calc 100.9 Estimated GFR > 60 Fasting Glucose 97 Calcium 8.6 Procedures Date of Service Date of Service: 05/06/21 Progress Note: A&P Assessment and plan (1) Small bowel obstruction: Status: Acute Assessment and Plan: Status post resection of the distal ileum and cecum Doing very well Good GI function Okay to discharge home Given discharge instruction Will see in office for follow-up Fall Risk Details Current Medications: Current Medications Acetaminophen (Acetaminophen 325 Mg Tablet) 650 mg PO Q6H [facility] Last Admin: 05/06/21 08:57 Dose: 650 mg Documented by: Clonazepam (Clonazepam 0.5 Mg Tablet) 0.5 mg PO TID PRN PRN Reason: anxiety Last Admin: 05/06/21 09:02 Dose: 0.5 mg Documented by: Dicyclomine HCl (Dicyclomine Hcl 10 Mg Capsule) 20 mg PO QIDACHS PRN PRN Reason: GI Upset Last Admin: 05/06/21 09:02 Dose: 20 mg Documented by: Diphenhydramine HCl (Diphenhydramine Hcl 50 Mg/Ml Vial) 25 mg IVPUSH Q6H PRN PRN Reason: Itching Last Admin: 05/04/21 21:15 Dose: 25 mg Documented by: Enoxaparin Sodium (Enoxaparin Sodium 40 Mg/0.4 Ml Syringe) 40 mg SUBCUT DAILY [facility] Last Admin: 05/06/21 08:58 Dose: Not Given Documented by: Hydromorphone HCl (Hydromorphone Hcl 1 Mg/Ml Syringe) 1 mg IVPUSH Q2H PRN; Protocol PRN Reason: Pain, Severe (Pain Scale 7-10) Last Admin: 05/04/21 05:53 Dose: 1 mg Documented by: Multi-Ingred Medicated Throat [place] (Throat [place], Medicated 20 Ml Bottle) 1 spray MUCOUS MEM Q2H PRN PRN Reason: throat discomfort Last Admin: 04/30/21 12:06 Dose: 1 spray Documented by: Non-Formulary Medication (Norgestimate-Ethinyl Estradiol [Estarylla]) 1 tab PO DAILY [facility] Last Admin: 05/06/21 08:57 Dose: 1 tab Documented by: Omeprazole (Omeprazole 40 Mg Capsule.Dr) 40 mg PO DAILY@0630 [facility] Last Admin: 05/06/21 06:05 Dose: 40 mg Documented by: Ondansetron HCl (Ondansetron Hcl 4 Mg/2 Ml Vial) 4 mg IVPUSH Q6H PRN PRN Reason: nausea Last Admin: 04/29/21 19:45 Dose: 4 mg Documented by: Oxycodone HCl (Oxycodone Hcl Immed Release 5 Mg Tablet) 5 mg PO Q4H PRN PRN Reason: Pain, Moderate (Pain Scale 4-6 Oxycodone HCl (Oxycodone Hcl Immed Release 5 Mg Tablet) 10 mg PO Q4H PRN PRN Reason: Pain, Severe (Pain Scale 7-10) Last Admin: 05/06/21 09:02 Dose: 10 mg Documented by: Pharmacy Consult (Consult Rx Perform Med Rec) 1 each MISCELLANE ONCE PRN PRN Reason: Consult order Prednisone (Prednisone 20 Mg Tablet) 20 mg PO DAILY [facility] Last Admin: 05/06/21 08:57 Dose: 20 mg Documented by: Simethicone (Simethicone 80 Mg Tab.Chew) 80 mg PO QIDWMHS PRN PRN Reason: gas pains Last Admin: 05/06/21 09:02 Dose: 80 mg Documented by: Sodium Chloride (0.9 % Sodium Chloride Flush 3 Ml Syringe) 3 ml IVFLUSH QSHIFT [facility] Last Admin: 05/06/21 08:57 Dose: Not Given Documented by: Zolpidem Tartrate (Zolpidem Tartrate 5 Mg Tablet) 5 mg PO BEDTIME PRN PRN Reason: Insomnia Last Admin: 05/05/21 21:38 Dose: 5 mg Documented by: Time Spent With Patient Time: Total time spent is greater than 50% in coordination of care (as documented) at patient's floor/unit and/or counseling patient: Quality Stroke Does the patient have a stroke diagnosis?: No VTE Prior VTE?: No VTE Risk Level:: Medical - moderate - high VTE Device Contraindication: Treatment Not Indicated VTE Drug Contraindication: N/A - Med Ordered
== END 2021-05-06 13:12 | disposition home or self-care (01) | DRG 230 ==
LOC: HO.ED 12:20 → HO.EDOVER 13:18 → HO.S3 13:44
PROVIDERS: Physician Assistant Medical; Physician Assistant Surgical; Student in an Organized Health Care Education/Training Program; Surgery; Admitting Provider Internal Medicine; Emergency Provider Emergency Medicine; PCP Nurse Practitioner Family; Visit Provider Internal Medicine
PROC: (CPT 49000; principal; 2021-04-28 12:30)
DX: K52.0 Gastroenteritis and colitis due to radiation (principal); A04.72 Enterocolitis due to Clostridium difficile, not specified as recurrent; Y84.2 Radiological procedure and radiotherapy as the cause of abnormal reaction of the patient, or of later complication, without mention of misadventure at the time of the procedure; K66.0 Peritoneal adhesions (postprocedural) (postinfection); R21 Rash and other nonspecific skin eruption; F17.210 Nicotine dependence, cigarettes, uncomplicated; K56.7 Ileus, unspecified; F41.9 Anxiety disorder, unspecified; G47.00 Insomnia, unspecified; Z20.822 Contact with and (suspected) exposure to COVID-19; Z71.6 Tobacco abuse counseling; Z79.3 Long term (current) use of hormonal contraceptives; Z79.899 Other long term (current) drug therapy
CPT/HCPCS: 36415; 74019; 74177; 80048; 80053; 81001; 82040; 83605; 83735; 84100; 84478; 84702; 85025; 85027; 85610; 85652; 86140; 86850; 86900; 86901; 87040; 87502; 87635; 88307; 96361; 96365; 96367; 96375; 96376; 99024; 99285; 99291; J0131; J0610; J0690; J1100; J1170; J1200; J1650; J1956; J2060; J2250; J2405; J2920; J2930; J3010; J3475; Q9967

== ENCOUNTER → 2021-05-13 10:48 | Outpatient (BNVA) | payer MEDICAID, SELFPAY | PROVIDERS: PCP Nurse Practitioner Family; Visit Provider Surgery | DX: Z48.02 Encounter for removal of sutures (principal); Z48.815 Encounter for surgical aftercare following surgery on the digestive system; K56.50 Intestinal adhesions [bands], unspecified as to partial versus complete obstruction; N30.40 Irradiation cystitis without hematuria; F17.210 Nicotine dependence, cigarettes, uncomplicated; Z85.41 Personal history of malignant neoplasm of cervix uteri; Z90.49 Acquired absence of other specified parts of digestive tract; Z88.8 Allergy status to other drugs, medicaments and biological substances | CPT/HCPCS: 99212 ==

== ENCOUNTER → 2021-07-19 10:32 | Outpatient (BNVA) | payer MEDICAID, SELFPAY | PROVIDERS: PCP Nurse Practitioner Family; Visit Provider Surgery | DX: K43.2 Incisional hernia without obstruction or gangrene (principal); R19.7 Diarrhea, unspecified | CPT/HCPCS: 99212 ==

== ENCOUNTER 2021-07-27 13:32 | Outpatient (REF) | payer MEDICAID, SELFPAY ==
--- NOTE | ~2021-07-27 | CT_ITS ---
EXAMINATION: CT ABDOMEN AND PELVIS WITHOUT CONTRAST CLINICAL INFORMATION: Incisional hernia without obstruction or gangrene COMPARISON: Previous CT of the abdomen and pelvis April 2021 TECHNIQUE: Multidetector volumetric imaging was performed from the superior aspect of the liver through the pubic symphysis. Sagittal and coronal reformatted images were obtained on the technologist's workstation. This CT examination was performed using dose optimization techniques as appropriate, variously including the following: *Automated exposure control *Adjustment of mA and/or kV according to patient size (this includes techniques or standardized protocols for targeted exams where dose is matched to indication/reason for exam; i.e. extremities or head) *Use of iterative reconstruction technique DLP: 267 mGy-cm FINDINGS: LUNG BASES: The visualized lung bases are unremarkable. LIVER, GALLBLADDER, AND BILIARY TREE: The liver is normal in size, shape, and attenuation. No focal hepatic lesion or biliary ductal dilatation is present. The gallbladder has been removed. PANCREAS: Unremarkable. SPLEEN: Unremarkable. ADRENAL GLANDS: Unremarkable. KIDNEYS AND URETERS: The kidneys are normal in size, shape, and attenuation. No hydronephrosis, hydroureter, or calculi seen. No perinephric stranding. BLADDER: Unremarkable. GASTROINTESTINAL TRACT: There are postsurgical changes with surgical staple line seen in the right lower quadrant region of the distal small bowel and right colon. There is a stool in the colon questionable for constipation. Small and large bowel is otherwise normal. The appendix is not seen and may been removed. ABDOMINAL WALL: There are postsurgical changes to the anterior abdominal wall. No hernia is seen. LYMPH NODES: Normal. VASCULAR: Unremarkable. PELVIC VISCERA: Unremarkable. OSSEOUS STRUCTURES: Unremarkable. CT/CT abdomen pelvis wo con IMPRESSION: Postsurgical changes to the anterior abdominal wall. No hernia seen. Fleischner guidelines were followed.
== END 2021-07-27 13:33 | disposition home or self-care (01) ==
LOC: HO.CT 13:32
PROVIDERS: Visit Provider Surgery
DX: K43.2 Incisional hernia without obstruction or gangrene (principal)
CPT/HCPCS: 74176

== ENCOUNTER → 2021-08-02 10:41 | Outpatient (BNVA) | payer MEDICAID, SELFPAY | PROVIDERS: PCP Nurse Practitioner Family; Visit Provider Surgery | DX: L76.82 Other postprocedural complications of skin and subcutaneous tissue (principal) | CPT/HCPCS: 99212 ==

== ENCOUNTER 2021-08-04 09:28 | Emergency (ER) | payer MEDICAID, SELFPAY ==
--- NOTE | ~2021-08-04 | XR_ITS ---
EXAMINATION: XR ABDOMEN KUB CLINICAL INDICATION: Abdominal pain, diarrhea. COMPARISON: 04/27/[address] scan of the abdomen and pelvis dated 07/27/2021 TECHNIQUE: AP view of the abdomen. FINDINGS: Mildly prominent gas-filled loops of bowel are seen overlying the mid to lower abdomen extending to the anastomotic sutures in the right lower quadrant. Mild gas and stool are seen within the colon distally to the rectum. The osseous structures are unremarkable. Surgical clips overlie the right midabdomen. XR/XR KUB IMPRESSION: Mildly prominent gas-filled bowel loops represent interval improvement from the previous study and appear to represent colonic loops correlating with recent CT findings. If the patient is 6. Thank you symptoms, short-term supine and upright abdominal radiographs are recommended as clinically indicated to better assess for more acute change.
--- NOTE | ~2021-08-04 | US_ITS ---
EXAMINATION: ULTRASOUND RENAL RIGHT CLINICAL INFORMATION: Microscopic hematuria. COMPARISON: CT scan of the abdomen and pelvis dated 07/27/2021. TECHNIQUE: Multiple 2-D grayscale and Doppler ultrasound images of the right kidney were obtained. FINDINGS: RIGHT KIDNEY: 9.8 x 3.7 x 5.7 cm. No hydronephrosis. Mildly prominent right extrarenal pelvis no nephrolithiasis. Color Doppler showed no abnormal vascular flow. URINARY BLADDER: Mildly distended without focal mural abnormality. Doppler showed right ureteral jet without abnormal vascularity. US/US renal RT IMPRESSION: No significant right renal or urinary bladder abnormality.
[2021-08-04 09:36] VITALS: BP 136/85; PULSE 82; RESP 17; TEMP 36.3; O2SAT 97
[2021-08-04 09:57] LABS: MANUAL DIFF FLAG NO
[2021-08-04 10:00] LABS: Appearance Urine HAZY; Color Urine YELLOW; Glucose Urine UA NEG (NEG); Leukocyte Esterase Urine NEG (NEG); Nitrite Urine NEG (NEG); Specific Gravity - Urine >= 1.030 (1.005-1.025); UACC Culture Trigger NO; Urine Blood 3+ (NEG); Urine Ketones 5 MG/DL (NEG); Urine Protein 2+ MG/DL (NEG-TRACE)
[2021-08-04 10:01] LABS: Basophils Percent Auto 0.5 % (0-2); Eosinophils Absolute Auto 0.1 X10*3/uL (0.0-0.4); Eosinophils Percent Auto 1.8 % (0-4); Hematocrit 36.1 % (37.0-47.0); Hemoglobin 11.7 g/dl (12.0-16.0); Imm Gran Abs Auto 0.03 X10*3/uL (0.00-0.03); Imm Gran Pct Auto 0.5 % (0.0-0.4); Lymphocytes Percent Auto 16.7 % (20-40); Mean Corpuscular HGB Conc 32.4 g/dl (31.0-35.0); Mean Corpuscular Hemoglobin 30.5 pg (27.0-33.0); Mean Platelet Volume 8.6 fL (9.4-12.3); Monocytes Absolute Auto 0.4 X10*3/uL (0.1-1.2); Monocytes Percent Auto 7.3 % (2-11); Neutrophils Absolute Auto 4.4 x10*3/uL (2.0-8.3); Neutrophils Percent Auto 73.2 % (45-73); Platelet Count 213 X10*3/uL (160-400); Red Blood Count 3.84 X10*6/uL (4.20-5.50); Red Cell Distribution Width 13.5 % (11.0-16.0)
[2021-08-04 10:02] LABS: UPreg QC Valid YES; Urine Pregnancy NEGATIVE (NEGATIVE)
[2021-08-04 10:06] LABS: Mucus Urine 1+ /LPF; Squamous Epithelial Cell Urine 1+ /LPF
[2021-08-04 10:07] LABS: RBC Urine 30-49 /HPF (0); WBC Urine 0-2 /HPF (0-4)
--- NOTE | 2021-08-04 10:12 | ED.ABDPAIN ---
HPI - Abdominal Pain General Chief Complaint: Abdominal Pain Stated Complaint: UTI/ KIDNEY INFECTION? R SIDE PELVIS PAIN Time Seen by Provider: 08/04/21 09:56 Source: patient Mode of arrival: ambulatory Limitations: no limitations History of Present Illness HPI narrative: Patient presents to emergency department with complaints of a possible urinary tract infection. She states that 3 days that [place] period and thinks that may have been the cause. Since yesterday she has been experiencing urinary frequency/urgency, dysuria, and suprapubic pressure. Declined symptoms of a yeast infection, no abnormal vaginal discharge or itching, has had many yeast infections in the past. She has pain to the right lower back and right lower quadrant her abdomen. Additionally she does report increase frequency of episodes of diarrhea, however she does have chronic diarrhea with multiple loose stools daily since her recent bowel obstruction. Related Data Home Medications Medication Instructions Recorded Confirmed clonazepam 0.5 mg tablet 0.5 mg PO TID 09/09/20 08/02/21 norgestimate 0.25 mg-ethinyl 1 tab PO DAILY 09/09/20 08/02/21 estradiol 35 mcg tablet (Estarylla) zolpidem 12.5 mg tablet,extended 1 tab PO BEDTIME PRN Sleep 09/09/20 08/02/21 release,multiphase dicyclomine 20 mg tablet 20 mg PO QID 04/06/21 08/02/21 omeprazole 40 mg capsule,delayed 1 cap PO QAM 04/23/21 08/02/21 release ondansetron 4 mg disintegrating 1 tab PO DAILY 04/23/21 08/02/21 tablet duloxetine 20 mg capsule,delayed 20 mg PO BID 05/13/21 08/02/21 release Previous Rx's Medication Instructions Recorded oxycodone 5 mg tablet 1 tab PO TID PRN Pain (Scale Score 05/06/21 7-10) #10 tabs prednisone 10 mg tablet 10 mg PO DAILY #5 tabs 05/06/21 simethicone 80 mg chewable tablet 80 mg PO QIDWMHS PRN gas pains #30 05/06/21 (Gas Relief (simethicone)) tabs cefuroxime axetil 250 mg tablet 250 mg PO Q12H 7 days #14 tabs 06/29/22 ketorolac 10 mg tablet 10 mg PO TID PRN pain 5 days #14 08/04/21 tabs Allergies Allergy/AdvReac Type Severity Reaction Status Date / Time guaifenesin [GUAIFENESIN] Allergy Intermediate HIVES Verified 08/02/21 10:48 metaproterenol [From Alupent] Allergy Mild PALPITATIONS, Verified 08/02/21 10:48 RASH Review of Systems Review of Systems Constitutional : No Weight loss, No Fever, No Chills ENT/Mouth :? No sore throat, No Rhinorrhea Eyes: No Swelling, No Redness Cardiovascular : No Chest Pain, No SOB, No Edema Respiratory : No Cough, No Sputum, No Wheezing Gastrointestinal : No Nausea, no Vomiting, positive Diarrhea, positive abdominal pain, No Hematochezia, No Melena Genitourinary : Positive Dysuria, positive Urinary Frequency, No Hematuria, positive Urgency? Musculoskeletal : No joint pain, No Myalgias, No Joint Swelling Skin : No Skin Lesions, No rash Neuro : No Weakness, No Numbness, No Dizziness, No Headache Psych : No Anxiety/Panic, No Depression Heme/Lymph: No Bruising, No Lymphadenopathy Yes all other systems are reviewed and are negative COUNTS INCLUDE 234 BEDS AT THE [facility] Past Medical History Attestation statement: The following information was validated with the patient. Source: old records reviewed Medical History Anxiety Cervical cancer Cholecystectomy planned Colitis Colitis COVID-19 Radiation cystitis Surgical History History of exploratory laparotomy Hx of elbow surgery Tubal ligation status Family History Family History Other No family history of coronary artery disease Social History Social History Household Members: Spouse and Family Housing: House Do you presently have visiting nurse or other home services: No Alcohol intake: never Patient Tobacco Use Status: Current everyday Tobacco user Tobacco use type: Cigarette Cigarettes Per Day: 2 Years Smoked: 25 Second Hand Smoke Exposure: No Substance Use Type: Other Advance Directives: Yes Advance Directives on File: Yes Advance Directives Date on File: 03/17/21 service: No Current occupational status: employed Physical Exam ED Vital Signs: Vital Signs - 24 hr 08/04/21 09:36 Temperature 97.4 F Pulse Rate 82 Respiratory Rate 17 Blood Pressure 136/85 Pulse Oximetry 97 Oxygen Delivery Method Room Air BMI result Body Mass Index 0.1 Vital signs have been reviewed as normal and appeared to be correct. Blood pressure normal.? Heart rate normal.? Respiration rate normal. Temperature normal.? Oxygen saturation normal. Appearance: Alert.?Oriented to person, place and time. No acute distress.?Normal affect. Eyes: Pupils equal, round and reactive to light.? ENT: Pharynx normal.?? Neck: Normal inspection.? Neck supple.?? CVS: Heart sounds normal. Normal heart rate and rhythm.? Pulses normal.?? Respiratory: No respiratory distress.? Lung sounds clear to auscultation bilaterally?? Abdomen: Soft with tenderness in the right lower quadrant. Normoactive bowel sounds. No pulsatile mass.??No CVA tenderness Skin: Skin warm and dry.? Normal skin color.? Extremities: No lower extremity edema.? Neuro: Moves all extremities spontaneously. Sensation intact bilaterally.. No focal neuro deficits. Ambulates with normal steady gait. Course Course Course Narrative: Patient is a 45-year-old female with a past medical history of anxiety, Cervical cancer status post radiation, Chronic diarrhea, colitis, appendectomy, Small bowel obstruction with resection of the distal ileum and cecum, followed by GI, and General surgery. Presenting today with genitourinary symptoms with reported concern for urinary tract infection, in addition to chronic diarrhea. Abdominal exam is overall benign tenderness in the right lower quadrant, there were no CVA tenderness. Hemodynamically stable, nontoxic. CBC, CMP, urinalysis, u preg, Toradol IM for pain, disposition pending results. Reevaluation(s) Reevaluation #1: CBC reveals a stable normocytic anemia, overall unremarkable CMP. Urinalysis reveals no sign of infection, however 3+ blood and RBCs, concerning possible renal calculi. Discussed findings with patient. Obtained KUB which reveals mild prominent gas-filled bowel loops with interval improvement when compared to prior abdominal CT 07/27. Ultrasound reveals no significant right renal or urinary bladder abnormality, no hydronephrosis, no nephrolithiasis. She has no gross hematuria, normal renal indices. Discussed these findings with patient, given that she is symptomatic of a urinary tract infection will treat with antibiotics at this time, advised to contact her primary care provider to schedule a follow-up visit, and advised that she may need to have a repeat urinalysis to ensure resolution of microscopic hematuria. discussed reasons that she should return back to emergency department, all questions were answered and she was discharged home stable condition. Time: 13:52 MDM - Abdominal Pain Medical Records Attestation: I reviewed the patient's medical records. Lab Data Attestation: I reviewed the patient's lab results. Result diagrams: 08/04/21 09:50 08/04/21 09:50 Labs: Lab Results 08/04/21 08/04/21 08/04/21 Range/Units 09:50 09:50 09:52 WBC 6.0 (4.8-10.8) X10*3/uL RBC 3.84 L (4.20-5.50) X10*6/uL Hgb 11.7 L (12.0-16.0) g/dl Hct 36.1 L (37.0-47.0) % MCV 94.0 (80.0-98.0) fL MCH 30.5 (27.0-33.0) pg MCHC 32.4 (31.0-35.0) g/dl RDW 13.5 (11.0-16.0) % Plt Count 213 D (160-400) X10*3/uL MPV 8.6 L (9.4-12.3) fL Immature Gran % (Auto) 0.5 H (0.0-0.4) % Neut % (Auto) 73.2 H (45-73) % Lymph % (Auto) 16.7 L (20-40) % Ida % (Auto) 7.3 (2-11) % Eos % (Auto) 1.8 (0-4) % Baso % (Auto) 0.5 (0-2) % Lymph # (Auto) 1.0 L (1.2-4.9) X10*3/uL Ida # (Auto) 0.4 (0.1-1.2) X10*3/uL Eos # (Auto) 0.1 (0.0-0.4) X10*3/uL Baso # (Auto) 0.0 (0.0-0.2) X10*3/uL Abs Immat Gran (auto) 0.03 (0.00-0.03) X10*3/uL Absolute Neuts (auto) 4.4 (2.0-8.3) x10*3/uL Absolute Nucleated RBC 0.000 (0.0-0.012) X10*3/uL Nucleated RBC % (auto) 0.0 (0.0-0.2) /100WBC Sodium 138 (135-145) mmol/L Potassium 4.2 (3.3-5.1) mmol/L Chloride 102 (96-108) mmol/L Carbon Dioxide 29 (22-29) mmol/L Anion Gap 11 L (12-20) BUN 8 L (9-16) mg/dL Creatinine 0.83 (0.5-1.4) mg/dL Estim Creat Clear Calc 61.8 Estimated GFR > 60 Random Glucose 125 H (60-115) mg/dL Calcium 8.5 (8.4-10.2) mg/dL Total Bilirubin 0.6 (0.0-1.0) mg/dL AST 14 (5-31) U/L ALT 9 (0-31) U/L Alkaline Phosphatase 63 (39-117) U/L Total Protein 6.5 D (6.5-8.0) g/dL Albumin 4.0 D (3.5-5.0) g/dL Urine Color YELLOW Urine Appearance HAZY Urine pH 6.0 (5.0-8.0) Ur Specific [place] >= 1.030 H (1.005-1.025) Urine Protein 2+ H (NEG-TRACE) MG/DL Urine Glucose (UA) NEG (NEG) MG/DL Urine Ketones 5 (NEG) MG/DL Urine Blood 3+ H (NEG) Urine Nitrite NEG (NEG) Ur Leukocyte Esterase NEG (NEG) Urine RBC 30-49 H (0) /HPF Urine WBC 0-2 (0-4) /HPF Ur Squamous Epith Cells 1+ /LPF Urine Bacteria NONE /LPF Urine Mucus 1+ /LPF Urine Test (NEGATIVE) 08/04/21 Range/Units 09:52 WBC (4.8-10.8) X10*3/uL RBC (4.20-5.50) X10*6/uL Hgb (12.0-16.0) g/dl Hct (37.0-47.0) % MCV (80.0-98.0) fL MCH (27.0-33.0) pg MCHC (31.0-35.0) g/dl RDW (11.0-16.0) % Plt Count (160-400) X10*3/uL MPV (9.4-12.3) fL Immature Gran % (Auto) (0.0-0.4) % Neut % (Auto) (45-73) % Lymph % (Auto) (20-40) % Ida % (Auto) (2-11) % Eos % (Auto) (0-4) % Baso % (Auto) (0-2) % Lymph # (Auto) (1.2-4.9) X10*3/uL Ida # (Auto) (0.1-1.2) X10*3/uL Eos # (Auto) (0.0-0.4) X10*3/uL Baso # (Auto) (0.0-0.2) X10*3/uL Abs Immat Gran (auto) (0.00-0.03) X10*3/uL Absolute Neuts (auto) (2.0-8.3) x10*3/uL Absolute Nucleated RBC (0.0-0.012) X10*3/uL Nucleated RBC % (auto) (0.0-0.2) /100WBC Sodium (135-145) mmol/L Potassium (3.3-5.1) mmol/L Chloride (96-108) mmol/L Carbon Dioxide (22-29) mmol/L Anion Gap (12-20) BUN (9-16) mg/dL Creatinine (0.5-1.4) mg/dL Estim Creat Clear Calc Estimated GFR Random Glucose (60-115) mg/dL Calcium (8.4-10.2) mg/dL Total Bilirubin (0.0-1.0) mg/dL AST (5-31) U/L ALT (0-31) U/L Alkaline Phosphatase (39-117) U/L Total Protein (6.5-8.0) g/dL Albumin (3.5-5.0) g/dL Urine Color Urine Appearance Urine pH (5.0-8.0) Ur Specific [place] (1.005-1.025) Urine Protein (NEG-TRACE) MG/DL Urine Glucose (UA) (NEG) MG/DL Urine Ketones (NEG) MG/DL Urine Blood (NEG) Urine Nitrite (NEG) Ur Leukocyte Esterase (NEG) Urine RBC (0) /HPF Urine WBC (0-4) /HPF Ur Squamous Epith Cells /LPF Urine Bacteria /LPF Urine Mucus /LPF Urine Test NEGATIVE (NEGATIVE) Imaging Data KUB: Radiologist's impression: XR/XR KUB IMPRESSION: Mildly prominent gas-filled bowel loops represent interval improvement from the previous study and appear to represent colonic loops correlating with recent CT findings. If the patient is 6. Thank you symptoms, short-term supine and upright abdominal radiographs are recommended as clinically indicated to better assess for more acute change. renal US: Radiologist's impression: US/US renal RT IMPRESSION: No significant right renal or urinary bladder abnormality. Discharge Plan Discharge Clinical Impression: Urinary tract infection Patient Disposition: Home, Self-Care Instructions: Urinary Tract Infection in Women (ED) Additional Instructions: You have been given a course of antibiotics to treat a urinary tract infection, as we discussed the urine culture will not be resulted for another 2 days. You have been given a prescription for ketorolac, to use as needed for pain, do not use additional pain medications such as Aleve/naproxen, Motrin/ibuprofen, or aspirin while taking this medication. Your urine sample did show evidence of microscopic hematuria, blood. Sometimes this can happen with urinary tract infection, there is no evidence of a kidney stone as a cause for this. Please contact your primary care provider and schedule a follow-up visit, as we discussed, they may want to assure that the microscopic hematuria has resolved after your treatment for UTI. Feel free to return to the emergency department any new or worsening symptoms or concerns Prescriptions: New cefuroxime axetil 250 mg tablet 250 mg PO Q12H 7 Days Qty: 14 0RF ketorolac 10 mg tablet 10 mg PO TID PRN (Reason: pain) 5 Days Qty: 14 0RF Rx Instructions: Patient monitored and observed in the emergency department after receiving ketorolac IM, and tolerated well, no complications, no reaction. No Action norgestimate-ethinyl estradiol [Estarylla] 0.25-35 mg-mcg tablet 1 tab PO DAILY clonazepam 0.5 mg tablet 0.5 mg PO TID zolpidem 12.5 mg tablet,ext release multiphase 1 tab PO BEDTIME PRN (Reason: Sleep) dicyclomine 20 mg Tablet 20 mg PO QID omeprazole 40 mg capsule,delayed release(DR/EC) 1 cap PO QAM ondansetron 4 mg tablet,disintegrating 1 tab PO DAILY prednisone 10 mg tablet 10 mg PO DAILY Qty: 5 0RF oxycodone 5 mg tablet 1 tab PO TID PRN (Reason: Pain (Scale Score 7-10)) Qty: 10 0RF simethicone [Gas Relief (simethicone)] 80 mg Tablet,Chewable 80 mg PO QIDWMHS PRN (Reason: gas pains) Qty: 30 0RF duloxetine 20 mg capsule,delayed release(DR/EC) 20 mg PO BID Referrals: Rosa Rice, FLORIST [Primary Care Provider] - 1 week Interventions: ED Discharge Assessment Last Done: 08/04/21 14:31 Discharge Date/Time: 08/04/21 14:32
[2021-08-04 10:18] LABS: Alanine Aminotransferase 9 U/L (0-31); Alkaline Phosphatase 63 U/L (39-117); Anion Gap 11 (12-20); Aspartate Amino Transferase 14 U/L (5-31); Bilirubin Total 0.6 mg/dL (0.0-1.0); Blood Urea Nitrogen 8 mg/dL (9-16); Calcium 8.5 mg/dL (8.4-10.2); Carbon Dioxide 29 mmol/L (22-29); Chloride 102 mmol/L (96-108); Creatinine Clr Calc Pharmacy 61.8; Estimated Glomerular Filt Rate > 60; Glucose Random 125 mg/dL (60-115); Potassium 4.2 mmol/L (3.3-5.1); Sodium 138 mmol/L (135-145); Total Protein 6.5 g/dL (6.5-8.0)
[2021-08-04] MEDS: Ketorolac Tromethamine 30 MG/ML VIAL IM (10:23)
== END 2021-08-04 14:32 | disposition home or self-care (01) ==
PROVIDERS: Emergency Provider Emergency Medicine; PCP Nurse Practitioner Family
DX: N39.0 Urinary tract infection, site not specified (principal); R10.31 Right lower quadrant pain; F17.200 Nicotine dependence, unspecified, uncomplicated
CPT/HCPCS: 36415; 74018; 76775; 80053; 81001; 81003; 81025; 85025; 96372; 99284; J1885

== ENCOUNTER → 2021-11-01 14:45 | Outpatient (BNVA) | payer MEDICAID, SELFPAY | PROVIDERS: PCP Nurse Practitioner Family; Visit Provider Surgery | DX: K62.5 Hemorrhage of anus and rectum (principal) | CPT/HCPCS: 46600; 99212 ==

== ENCOUNTER 2022-01-24 08:23 | Emergency (ER) | payer MEDICAID, SELFPAY ==
--- NOTE | ~2022-01-24 | XR_ITS ---
EXAMINATION: XR CHEST CLINICAL INFORMATION: Productive cough COMPARISON: 02/20/2021 TECHNIQUE: Frontal view of the chest was obtained. FINDINGS: No significant abnormality is noted involving the heart, lungs, mediastinum, bony thorax or soft tissues. XR/XR chest 1V IMPRESSION: No acute pulmonary disease. No significant change from prior study.
[2022-01-24 08:25] VITALS: BP 145/92; PULSE 72; RESP 18; TEMP 36.7; O2SAT 99; BMI 19.5
[2022-01-24 09:43] LABS: Influenza A PCR NEGATIVE (Negative); Influenza B PCR NEGATIVE (Negative); Resp Syncy Virus RNA Qual PCR NEGATIVE (Negative); SARS COV2 PCR INHOUSE NEGATIVE (Negative)
--- NOTE | 2022-01-24 09:44 | ED_ITS ---
HPI - URI/Sore Throat General Chief Complaint: Upper Respiratory Symptoms Stated Complaint: uri symptons Time Seen by Provider: 01/24/22 09:26 Source: patient Mode of arrival: ambulatory History of Present Illness HPI Narrative: 46-year-old female with past medical history anxiety, colitis, SBO, presenting to the ED complaining of rhinorrhea/nasal congestion, sore throat, productive cough, and SOB x 5 days. Admits has been using niPecabu machine at home with some relief. also reports subjective fever. Denies drainage from ear, hearing loss, difficulty swallowing, CP, recent travel MD elicited complaint: fever, cough, sore throat, rhinorrhea and nasal congestion Onset (ago): day(s) Related Data Home Medications Medication Instructions Recorded Confirmed clonazepam 0.5 mg tablet 0.5 mg PO TID 09/09/20 11/01/21 norgestimate 0.25 mg-ethinyl 1 tab PO DAILY 09/09/20 11/01/21 estradiol 35 mcg tablet (Estarylla) zolpidem 12.5 mg tablet,extended 1 tab PO BEDTIME PRN Sleep 09/09/20 11/01/21 release,multiphase dicyclomine 20 mg tablet 20 mg PO QID 04/06/21 11/01/21 omeprazole 40 mg capsule,delayed 1 cap PO QAM 04/23/21 11/01/21 release ondansetron 4 mg disintegrating 1 tab PO DAILY 04/23/21 11/01/21 tablet duloxetine 20 mg capsule,delayed 20 mg PO BID 05/13/21 11/01/21 release nortriptyline 10 mg capsule 0 mg PO 11/01/21 11/01/21 Previous Rx's Medication Instructions Recorded oxycodone 5 mg tablet 1 tab PO TID PRN Pain (Scale Score 05/06/21 7-10) #10 tabs prednisone 10 mg tablet 10 mg PO DAILY #5 tabs 05/06/21 simethicone 80 mg chewable tablet 80 mg PO QIDWMHS PRN gas pains #30 05/06/21 (Gas Relief (simethicone)) tabs cefuroxime axetil 250 mg tablet 250 mg PO Q12H 7 days #14 tabs 08/04/21 ketorolac 10 mg tablet 10 mg PO TID PRN pain 5 days #14 08/04/21 tabs diphenoxylate-atropine 2.5 1 tab PO QID PRN diarrhea #30 tabs 12/13/21 mg-0.025 mg tablet (Lomotil) albuterol sulfate 90 mcg/actuation 2 puff inhalation Q4-6H PRN 01/24/22 aerosol inhaler shortness of breath or wheezing #6.7 grams benzonatate 100 mg capsule 100 mg PO TID PRN cough #14 caps 01/24/22 fluticasone propionate 50 2 spray intranasal DAILY #16 grams 01/24/22 mcg/actuation nasal spray,suspension (Flonase Allergy Relief) prednisone 20 mg tablet 40 mg PO DAILY 5 days #10 tabs 01/24/22 Allergies Allergy/AdvReac Type Severity Reaction Status Date / Time guaifenesin [GUAIFENESIN] Allergy Intermediate HIVES Verified 11/01/21 15:16 metaproterenol [From Alupent] Allergy Mild PALPITATIONS, Verified 11/01/21 15:16 RASH Review of Systems Review of Systems: Constitutional: +subj Fever, No Chills ENT/Mouth: No Ear Pain, + Nasal Congestion, No Sinus Pain, No Hoarseness, + sore throat, + Rhinorrhea, No Swallowing Difficulty Cardiovascular: No Chest Pain, + SOB Respiratory: + Cough, + Sputum, No Wheezing Gastrointestinal: No Nausea, No Vomiting, No Diarrhea, No Constipation, No Abdominal pain Genitourinary: No Dysuria, No Urinary Frequency, No Hematuria Musculoskeletal: No joint pain, No Myalgias, No Joint Swelling Skin: No Skin Lesions, No rash Neuro: No Weakness, No Numbness, No Paresthesias Yes all other systems are reviewed and are negative Constitutional: Constitutional: Reports as per [facility] Past Medical History Attestation statement: The following information was validated with the patient. Medical History Anxiety Cervical cancer Cholecystectomy planned Colitis Colitis COVID-19 Diarrhea Incisional hernia Radiation cystitis Rectal bleed Small bowel obstruction Surgical History History of exploratory laparotomy Hx of elbow surgery Tubal ligation status Family History Family History Other No family history of coronary artery disease Social History Social History Household Members: Spouse and Family Housing: House Do you presently have visiting nurse or other home services: No Alcohol intake: never Patient Tobacco Use Status: Current everyday Tobacco user Tobacco use type: Cigarette Cigarettes Per Day: 2 Years Smoked: 25 Second Hand Smoke Exposure: No Substance Use Type: Other Advance Directives: Yes Advance Directives on File: Yes Advance Directives Date on File: 03/17/21 service: No Current occupational status: employed Physical Exam Vital Signs: Vital Signs: Last Vital Signs Temp 98.1 F 01/24/22 08:25 Pulse 76 01/24/22 10:06 Resp 16 01/24/22 10:06 BP 145/92 H 01/24/22 08:25 Pulse Ox 99 01/24/22 08:25 O2 Del Method 01/24/22 08:25 BMI result Body Mass Index 19.5 Const: General: cooperative, healthy appearing and no acute distress Orientation/consciousness: patient oriented x3 Limitations: no limitations HEENT: Head: Yes normal to inspection and Yes atraumatic Ears: hearing grossly normal bilaterally, external ears normal, TM's normal bilaterally and mastoids normal General nose exam: Normal external nose present Face and sinus: Yes normal facial exam Throat: Yes posterior oropharynx normal, Yes tonsils normal, Yes uvula midline, No peritonsillar mass and No uvula laterally displaced Eyes: General: appearance normal, both eyes and all related structures EOM: EOMs intact bilaterally Neck: Neck: Yes normal visual inspection and Yes no meningeal signs Resp: Effort & Inspection: normal respiratory effort and no respiratory distress Auscultation: wheezes ( mild end-expiratory) Cardio: Rate: regular rate Heart sounds: S1 normal heart sound present and S2 normal heart sound present GI: Inspection: Yes normal to inspection Palpation (GI): Soft to palpation, nontender, no guarding and not rigid : General: Yes no CVA tenderness Back/Spine/Pelvis: Back: no CVA tenderness Skin: Rashes: no rashes Wounds: no wounds Neuro: General: patient oriented x3, tone normal and no meningeal signs Gait exam (Neuro): Normal gait present Extrem: General: Yes normal to inspection Course Course Course Narrative: - COVID-19/influenza/RSV negative - chest x-ray unremarkable Results discussed with patient including worrisome signs and symptoms and strict return precautions, and when to return to the emergency department. They verbalized understanding and feel safe for discharge at this time. Medications Administered Discontinued Medications Generic Name Dose Route Start Last Admin Trade Name Crystal PRN Reason Stop Dose Admin Albuterol/Ipratropium 3 ml 01/24/22 09:49 01/24/22 10:04 Albuterol/Iprat 2.5/0.5mg 3 Ml Ampul.Neb INHALE 01/24/22 09:50 3 ml ONCE ONE Administration Benzonatate 100 mg 01/24/22 09:49 01/24/22 10:14 Benzonatate 100 Mg Capsule PO 01/24/22 09:50 100 mg ONCE ONE Administration Medical Decision Making Medical Decision Making MDM Narrative: 46-year-old female with past medical history anxiety, colitis, SBO, presenting to the ED complaining of rhinorrhea/nasal congestion, sore throat, productive cough, and SOB x 5 days. on exam vital signs stable, NAD, nontoxic appearing, mild end-expiratory wheeze noted. Concern for viral illness vs bronchitis vs pneumonia. Low suspicion for ACS /PE Plan: COVID-19/influenza/ RSV testing, CXR, DuoNeb Differential Diagnosis Differential Diagnoses: The differential diagnosis associated with the presentation includes Admission/Observation Consideration of admission/observation: Escalation of care including admission/observation considered Lab Data Labs: Lab Results 01/24/22 Range/Units 08:46 Influenza Type A (PCR) NEGATIVE (Negative) Influenza Type B (PCR) NEGATIVE (Negative) RSV RNA Qual (PCR) NEGATIVE (Negative) SARS-CoV-2 RNA (RT-PCR) NEGATIVE (Negative) Discharge Plan Discharge Clinical Impression: Bronchitis Patient Disposition: Home, Self-Care Instructions: Acute Bronchitis (ED) Additional Instructions: You tested negative for COVID-19, flu, and RSV. Her x-ray is unremarkable appear inhaler will help with shortness of breath / wheezing. Additionally prednisone as a steroid take as prescribed. Flonase and nasal decongestion. Rest. Stay hydrated. Tessalon Perles are for cough take as needed Follow up with her doctor as needed. If symptoms persist or worsen return to the emergency department Prescriptions: New prednisone 20 mg tablet 40 mg PO DAILY 5 Days Qty: 10 0RF benzonatate 100 mg capsule 100 mg PO TID PRN (Reason: cough) Qty: 14 0RF albuterol sulfate 90 mcg/actuation HFA aerosol inhaler 2 puff inhalation Q4-6H PRN (Reason: shortness of breath or wheezing) Qty: 6.7 0RF fluticasone propionate [Flonase Allergy Relief] 50 mcg/actuation spray,suspension 2 spray intranasal DAILY Qty: 16 0RF Rx Instructions: administer into each nostril No Action diphenoxylate-atropine [Lomotil] 2.5-0.025 mg tablet 1 tab PO QID PRN (Reason: diarrhea) Qty: 30 0RF norgestimate-ethinyl estradiol [Estarylla] 0.25-35 mg-mcg tablet 1 tab PO DAILY clonazepam 0.5 mg tablet 0.5 mg PO TID zolpidem 12.5 mg tablet,ext release multiphase 1 tab PO BEDTIME PRN (Reason: Sleep) cefuroxime axetil 250 mg tablet 250 mg PO Q12H 7 Days Qty: 14 0RF ketorolac 10 mg tablet 10 mg PO TID PRN (Reason: pain) 5 Days Qty: 14 0RF Rx Instructions: Patient monitored and observed in the emergency department after receiving ketorolac IM, and tolerated well, no complications, no reaction. dicyclomine 20 mg Tablet 20 mg PO QID omeprazole 40 mg capsule,delayed release(DR/EC) 1 cap PO QAM ondansetron 4 mg tablet,disintegrating 1 tab PO DAILY prednisone 10 mg tablet 10 mg PO DAILY Qty: 5 0RF oxycodone 5 mg tablet 1 tab PO TID PRN (Reason: Pain (Scale Score 7-10)) Qty: 10 0RF simethicone [Gas Relief (simethicone)] 80 mg Tablet,Chewable 80 mg PO QIDWMHS PRN (Reason: gas pains) Qty: 30 0RF duloxetine 20 mg capsule,delayed release(DR/EC) 20 mg PO BID nortriptyline 10 mg capsule 0 mg PO Referrals: Edmundo Burnham MD [Primary Care Provider] - Stand Alone Forms: Work/School Release
[2022-01-24] MEDS: Albuterol/Iprat 2.5/0.5MG 3 ML AMPUL.NEB INHALE (10:04)
[2022-01-24 10:06] VITALS: PULSE 76; RESP 16; O2SAT 98
[2022-01-24] MEDS: Benzonatate 100 MG CAPSULE PO (10:14)
--- NOTE | 2022-01-24 10:43 | PC.NURSE ---
lungs - diminished all lobes after neb tx.
== END 2022-01-24 10:45 | disposition home or self-care (01) ==
PROVIDERS: Emergency Provider Emergency Medicine; PCP Internal Medicine
DX: J40 Bronchitis, not specified as acute or chronic (principal); R50.9 Fever, unspecified; R09.81 Nasal congestion; F17.210 Nicotine dependence, cigarettes, uncomplicated; Z20.822 Contact with and (suspected) exposure to COVID-19; Z71.6 Tobacco abuse counseling
CPT/HCPCS: 0241U; 71045; 99283; 99284

== ENCOUNTER 2022-03-04 07:43 | Emergency (ER) | payer MEDICAID, SELFPAY ==
--- NOTE | ~2022-03-04 | CT_ITS ---
EXAMINATION: CT ABDOMEN AND PELVIS WITH CONTRAST CLINICAL INFORMATION: Right lower quadrant/suprapubic pain. COMPARISON: 07/27/2021 TECHNIQUE: Multidetector volumetric images were obtained from the superior aspect of the liver through the pubic symphysis following administration 85 mL of Omnipaque 350 intravenous contrast. Sagittal and coronal reformatted images were obtained on the technologist's workstation. Oral contrast: No This CT examination was performed using dose optimization techniques as appropriate, variously including the following: *Automated exposure control *Adjustment of mA and/or kV according to patient size (this includes techniques or standardized protocols for targeted exams where dose is matched to indication/reason for exam; i.e. extremities or head) *Use of iterative reconstruction technique DLP: 352 mGy-cm FINDINGS: LUNG BASES: The visualized lung bases are unremarkable. LIVER, GALLBLADDER, AND BILIARY TREE: The liver is normal in size, shape, and attenuation. No focal hepatic lesion or biliary ductal dilatation is present. Cholecystectomy. PANCREAS: Unremarkable. SPLEEN: Unremarkable. ADRENAL GLANDS: Unremarkable. KIDNEYS AND URETERS: The kidneys are normal in size, shape, and attenuation. No hydronephrosis, hydroureter, or calculi seen. No perinephric stranding. BLADDER: Unremarkable. GASTROINTESTINAL TRACT: The stomach is decompressed. Normal caliber small bowel. No obstruction. No colonic wall thickening or acute inflammatory change. Mild diffuse colonic stool burden. Enterocolic anastomosis at the right midabdomen. ABDOMINAL WALL: No significant hernia is appreciated. LYMPH NODES: Normal. VASCULAR: Normal caliber aorta with mild atherosclerotic calcification. PELVIC VISCERA: Anteverted uterus. Heterogeneous enhancement of the uterine parenchyma. No adnexal mass. OSSEOUS STRUCTURES: No acute or suspicious osseous abnormality. Mild degenerative changes in the spine. CT/CT abdomen pelvis w IV con IMPRESSION: No acute findings in the abdomen or pelvis. No inflammatory changes. Mild colonic stool burden. Heterogeneous enhancement of the uterus is nonspecific and could just be associated with timing of contrast. If there is concern for gynecologic pathology, consider ultrasound evaluation. Fleischner guidelines were followed.
--- NOTE | ~2022-03-04 | US_ITS ---
EXAMINATION: US PELVIS CLINICAL INFORMATION: Pain in right lower quadrant. COMPARISON: CT abdomen and pelvis from 03/04/2022. TECHNIQUE: Ultrasound of the pelvis is performed using both transabdominal and transvaginal transducers along with Doppler. Transvaginal imaging is performed due to inadequate visualization transabdominally. FINDINGS: UTERUS AND CERVIX The anteflexed, anteverted uterus measures approximately 6.5 x 3.5 x 4.5 cm ([id number] x AP x transverse dimension). The myometrial echotexture is normal. No evidence of leiomyoma. The cervix is approximately 2.5 cm in length. No sonographic evidence of cervical mass. The endometrium has normal echotexture, measures 0.3 cm AP. ADNEXA: The left ovary is 1.7 x 1 x 1.7 cm and right ovary is 0.8 x 1.9 x 0.8 cm. No adnexal masses. Color Doppler images with spectral waveforms show presence of normal arterial and venous flow within each ovary. FREE FLUID: None detected. US/US pelvic and transvaginal IMPRESSION: No acute sonographic abnormalities within the visualized pelvis. No evidence of uterine mass. Also, no evidence of ovarian mass, torsion or pelvic free fluid.
--- NOTE | ~2022-03-04 | US_ITS ---
EXAMINATION: US PELVIS CLINICAL INFORMATION: Pain in right lower quadrant. COMPARISON: CT abdomen and pelvis from 03/04/2022. TECHNIQUE: Ultrasound of the pelvis is performed using both transabdominal and transvaginal transducers along with Doppler. Transvaginal imaging is performed due to inadequate visualization transabdominally. FINDINGS: UTERUS AND CERVIX The anteflexed, anteverted uterus measures approximately 6.5 x 3.5 x 4.5 cm ([id number]-us-[id number] x AP x transverse dimension). The myometrial echotexture is normal. No evidence of leiomyoma. The cervix is approximately 2.5 cm in length. No sonographic evidence of cervical mass. The endometrium has normal echotexture, measures 0.3 cm AP. ADNEXA: The left ovary is 1.7 x 1 x 1.7 cm and right ovary is 0.8 x 1.9 x 0.8 cm. No adnexal masses. Color Doppler images with spectral waveforms show presence of normal arterial and venous flow within each ovary. FREE FLUID: None detected. US/US pelvic ovarian doppler IMPRESSION: No acute sonographic abnormalities within the visualized pelvis. No evidence of uterine mass. Also, no evidence of ovarian mass, torsion or pelvic free fluid.
[2022-03-04 07:46] VITALS: BP 187/105; PULSE 104; RESP 18; TEMP 36.3; O2SAT 97; BMI 20.2
--- NOTE | 2022-03-04 08:16 | ED_ITS ---
HPI - Abdominal Pain General Chief Complaint: Upper Respiratory Symptoms Stated Complaint: Kidney Infection? /Multiple complaints Time Seen by Provider: 03/04/22 07:53 Source: patient Mode of arrival: ambulatory History of Present Illness HPI narrative: 46-year-old female who presents with right lower quadrant/suprapubic pain that started yesterday and has been associated with nausea but no episodes of vomiting and she denies obstipation. Patient states that the pain is radiating into her right lower back and she is status post appendectomy but has a significant history of cervical cancer, SBO. She denies any history of renal colic. Related Data Home Medications Medication Instructions Recorded Confirmed clonazepam 0.5 mg tablet 0.5 mg PO TID 09/09/20 11/01/21 norgestimate 0.25 mg-ethinyl 1 tab PO DAILY 09/09/20 11/01/21 estradiol 35 mcg tablet (Estarylla) zolpidem 12.5 mg tablet,extended 1 tab PO BEDTIME PRN Sleep 09/09/20 11/01/21 release,multiphase dicyclomine 20 mg tablet 20 mg PO QID 04/06/21 11/01/21 omeprazole 40 mg capsule,delayed 1 cap PO QAM 04/23/21 11/01/21 release ondansetron 4 mg disintegrating 1 tab PO DAILY 04/23/21 11/01/21 tablet duloxetine 20 mg capsule,delayed 20 mg PO BID 05/13/21 11/01/21 release nortriptyline 10 mg capsule 0 mg PO 11/01/21 11/01/21 Previous Rx's Medication Instructions Recorded oxycodone 5 mg tablet 1 tab PO TID PRN Pain (Scale Score 05/06/21 7-10) #10 tabs prednisone 10 mg tablet 10 mg PO DAILY #5 tabs 05/06/21 simethicone 80 mg chewable tablet 80 mg PO QIDWMHS PRN gas pains #30 05/06/21 (Gas Relief (simethicone)) tabs cefuroxime axetil 250 mg tablet 250 mg PO Q12H 7 days #14 tabs 08/04/21 ketorolac 10 mg tablet 10 mg PO TID PRN pain 5 days #14 08/04/21 tabs diphenoxylate-atropine 2.5 1 tab PO QID PRN diarrhea #30 tabs 12/13/21 mg-0.025 mg tablet (Lomotil) albuterol sulfate 2.5 mg/0.5 mL 5 mg inhalation Q4H PRN shortness 01/24/22 solution for nebulization of breath or wheezing #30 ea albuterol sulfate 90 mcg/actuation 2 puff inhalation Q4-6H PRN 01/24/22 aerosol inhaler shortness of breath or wheezing #6.7 grams benzonatate 100 mg capsule 100 mg PO TID PRN cough #14 caps 01/24/22 fluticasone propionate 50 2 spray intranasal DAILY #16 grams 01/24/22 mcg/actuation nasal spray,suspension (Flonase Allergy Relief) prednisone 20 mg tablet 40 mg PO DAILY 5 days #10 tabs 01/24/22 ketorolac 10 mg tablet 10 mg PO Q6H PRN pain 5 days #20 03/04/22 tabs Allergies Allergy/AdvReac Type Severity Reaction Status Date / Time guaifenesin [GUAIFENESIN] Allergy Intermediate HIVES Verified 03/04/22 07:51 metaproterenol [From Alupent] Allergy Mild PALPITATIONS, Verified 03/04/22 07:51 RASH Review of Systems Review of Systems Pertinent positives and negatives as stated in HPI [facility] Past Medical History Source: nursing notes reviewed Medical History Anxiety Cervical cancer Cholecystectomy planned Colitis Colitis COVID-19 Diarrhea Incisional hernia Radiation cystitis Rectal bleed Small bowel obstruction Surgical History History of exploratory laparotomy Hx of elbow surgery Tubal ligation status Family History Family History Other No family history of coronary artery disease Social History Social History Household Members: Spouse and Family Housing: House Do you presently have visiting nurse or other home services: No Alcohol intake: never Patient Tobacco Use Status: Current everyday Tobacco user Tobacco use type: Cigarette Cigarettes Per Day: 2 Years Smoked: 25 Second Hand Smoke Exposure: No Substance Use Type: Other Advance Directives: Yes Advance Directives on File: Yes Advance Directives Date on File: 03/17/21 service: No Current occupational status: employed Physical Exam ED Vital Signs: Vital Signs - 24 hr 03/04/22 07:46 03/04/22 08:28 Temperature 97.4 F 98.2 F Pulse Rate 104 H 81 Respiratory Rate 18 19 Blood Pressure 187/105 H 169/84 H Pulse Oximetry 97 98 Oxygen Delivery Method Room Air Room Air BMI result Body Mass Index 20.2 VITAL SIGNS: Reviewed. GENERAL: Well developed, well nourished, in no acute distress. HEAD: Normocephalic/atraumatic EYES: PERRLA, EOMI EARS: Ext canals without abnormality OROPHARYNX: no oral lesions noted, posterior pharynx clear LUNGS: Normal breath sounds. No adventitious sounds or accessory muscle use. SpO2<97> CARDIOVASCULAR: Regular rate and rhythm without noted murmurs, no JVD or lower extremity edema. ABDOMEN: Soft, tenderness over right lower quadrant and into suprapubic area, mild distended with bowel sounds, no CVA tenderness MUSCULOSKELETAL: No tenderness, deformities, or effusions noted on gross inspection. EXTREMITIES: No cyanosis, clubbing or edema. SKIN: Inspection of the skin reveals no rashes NEUROLOGIC: Alert and oriented x 4. Strength and sensation to light touch were grossly intact x 4. Medical Decision Making Medical Decision Making MDM Narrative: 46-year-old female who be ruled out for renal colic, SBO. On further collateral information patient states that she underwent an internal exam on Monday and wonders if this is why she is experiencing the pain. I reviewed all investigations and my interpretation is that this is likely musculoskeletal/associated with suspected scarring intra-abdominally after the radiation that she has undergone. There is no evidence to suggest obstruction, renal colic, ovarian torsion, ectopic, urinary tract infection or other intestinal issue. All results discussed with her bedside and she is otherwise discharged home in stable condition with instructions to follow-up with her oncologist. Differential Diagnosis Differential Diagnoses: The differential diagnosis associated with the presentation includes Please see the discussion above Lab Data MDM Lab Attestation statement: I reviewed the patient's lab results. Please see the discussion above 03/04/22 08:18 03/04/22 08:18 Labs: Lab Results 03/04/22 03/04/22 03/04/22 Range/Units 08:18 08:18 08:18 WBC 4.9 (4.8-10.8) X10*3/uL RBC 3.95 L (4.20-5.50) X10*6/uL Hgb 12.6 (12.0-16.0) g/dl Hct 37.4 (37.0-47.0) % MCV 94.7 (80.0-98.0) fL MCH 31.9 (27.0-33.0) pg MCHC 33.7 (31.0-35.0) g/dl RDW 12.9 (11.0-16.0) % Plt Count 212 (160-400) X10*3/uL MPV 8.7 L (9.4-12.3) fL Immature Gran % (Auto) 0.2 (0.0-0.4) % Neut % (Auto) 62.3 (45-73) % Lymph % (Auto) 26.2 (20-40) % [place] % (Auto) 10.1 (2-11) % Eos % (Auto) 0.8 (0-4) % Baso % (Auto) 0.4 (0-2) % Lymph # (Auto) 1.3 (1.2-4.9) X10*3/uL [place] # (Auto) 0.5 (0.1-1.2) X10*3/uL Eos # (Auto) 0.0 (0.0-0.4) X10*3/uL Baso # (Auto) 0.0 (0.0-0.2) X10*3/uL Abs Immat Gran (auto) 0.01 (0.00-0.03) X10*3/uL Absolute Neuts (auto) 3.0 (2.0-8.3) x10*3/uL Absolute Nucleated RBC 0.000 (0.0-0.012) X10*3/uL Nucleated RBC % (auto) 0.0 (0.0-0.2) /100WBC Sodium 139 (135-145) mmol/L Potassium 3.9 (3.3-5.1) mmol/L Chloride 104 (96-108) mmol/L Carbon Dioxide 24 (22-29) mmol/L Anion Gap 15 (12-20) BUN 6 L (9-16) mg/dL Creatinine 0.74 (0.5-1.4) mg/dL Estim Creat Clear Calc 75.8 Estimated GFR > 60 Random Glucose 98 (60-115) mg/dL Calcium 9.0 (8.4-10.2) mg/dL Total Bilirubin 0.2 (0.0-1.0) mg/dL AST 15 (5-31) U/L ALT 11 (0-31) U/L Alkaline Phosphatase 52 (39-117) U/L Total Protein 6.8 (6.5-8.0) g/dL Albumin 4.1 (3.5-5.0) g/dL Urine Color Yellow Urine Appearance Clear Urine pH 6.5 (5.0-9.0) Ur Specific [place] <= 1.005 (1.005-1.025) Urine Protein Negative (Neg-Trace) mg/dL Urine Glucose (UA) Negative (Negative) mg/dL Urine Ketones Negative (Negative) mg/dL Urine Blood Trace H (Negative) Urine Nitrite Negative (Negative) Ur Leukocyte Esterase Negative (Negative) Urine RBC 3-5 H (0-2) /HPF Urine WBC 0-5 (0-5) /HPF Ur Squamous Epith Cells 0-2 (0-2) /HPF Urine Bacteria None Seen (None Seen) Hyaline Casts 0-2 (0-2) /LPF Urine Test (NEGATIVE) 03/04/22 Range/Units 08:18 WBC (4.8-10.8) X10*3/uL RBC (4.20-5.50) X10*6/uL Hgb (12.0-16.0) g/dl Hct (37.0-47.0) % MCV (80.0-98.0) fL MCH (27.0-33.0) pg MCHC (31.0-35.0) g/dl RDW (11.0-16.0) % Plt Count (160-400) X10*3/uL MPV (9.4-12.3) fL Immature Gran % (Auto) (0.0-0.4) % Neut % (Auto) (45-73) % Lymph % (Auto) (20-40) % [place] % (Auto) (2-11) % Eos % (Auto) (0-4) % Baso % (Auto) (0-2) % Lymph # (Auto) (1.2-4.9) X10*3/uL [place] # (Auto) (0.1-1.2) X10*3/uL Eos # (Auto) (0.0-0.4) X10*3/uL Baso # (Auto) (0.0-0.2) X10*3/uL Abs Immat Gran (auto) (0.00-0.03) X10*3/uL Absolute Neuts (auto) (2.0-8.3) x10*3/uL Absolute Nucleated RBC (0.0-0.012) X10*3/uL Nucleated RBC % (auto) (0.0-0.2) /100WBC Sodium (135-145) mmol/L Potassium (3.3-5.1) mmol/L Chloride (96-108) mmol/L Carbon Dioxide (22-29) mmol/L Anion Gap (12-20) BUN (9-16) mg/dL Creatinine (0.5-1.4) mg/dL Estim Creat Clear Calc Estimated GFR Random Glucose (60-115) mg/dL Calcium (8.4-10.2) mg/dL Total Bilirubin (0.0-1.0) mg/dL AST (5-31) U/L ALT (0-31) U/L Alkaline Phosphatase (39-117) U/L Total Protein (6.5-8.0) g/dL Albumin (3.5-5.0) g/dL Urine Color Urine Appearance Urine pH (5.0-9.0) Ur Specific [place] (1.005-1.025) Urine Protein (Neg-Trace) mg/dL Urine Glucose (UA) (Negative) mg/dL Urine Ketones (Negative) mg/dL Urine Blood (Negative) Urine Nitrite (Negative) Ur Leukocyte Esterase (Negative) Urine RBC (0-2) /HPF Urine WBC (0-5) /HPF Ur Squamous Epith Cells (0-2) /HPF Urine Bacteria (None Seen) Hyaline Casts (0-2) /LPF Urine Test NEGATIVE (NEGATIVE) Radiology Impression Radiologist Impression: My interpretation is in agreement with radiologist impression of imaging studies. External Record Review External record reviewed: Outpatient record and Prior outpatient labs Medications Administered Discontinued Medications Generic Name Dose Route Start Last Admin Trade Name Freq PRN Reason Stop Dose Admin Sodium Chloride 1,000 mls @ 999 mls/hr 03/04/22 08:30 03/04/22 09:44 Ns IV 03/04/22 09:30 999 mls/hr .Q1H1M VALERI Administration Iohexol 100 ml 03/04/22 09:12 03/04/22 09:13 Iohexol 350 Mg/Ml 100 Ml Infus..Btl IV 03/04/22 09:13 85 ml ONCE ONE Administration Ketorolac Tromethamine 15 mg 03/04/22 09:48 03/04/22 09:56 Ketorolac Tromethamine 30 Mg/Ml Vial IVPUSH 03/04/22 09:49 15 mg ONCE ONE Administration Discharge Plan Discharge Clinical Impression: Musculoskeletal pain, Pain after radiation therapy Patient Disposition: Home, Self-Care Instructions: Pain Management (ED), Musculoskeletal Pain (ED), Side Effects of Radiation Therapy (ED) Additional Instructions: 1. Resume all home medications as prescribed. 2. You have been prescribed Toradol for additional pain control medication and suspected inflammatory etiology for your pain. 3. Please follow-up with your oncologist for further pain management as needed. Return to the ER for any worsening of your symptoms. Prescriptions: New ketorolac 10 mg tablet 10 mg PO Q6H PRN (Reason: pain) 5 Days Qty: 20 0RF Rx Instructions: Patient received Toradol in the emergency room. No Action diphenoxylate-atropine [Lomotil] 2.5-0.025 mg tablet 1 tab PO QID PRN (Reason: diarrhea) Qty: 30 0RF norgestimate-ethinyl estradiol [Estarylla] 0.25-35 mg-mcg tablet 1 tab PO DAILY clonazepam 0.5 mg tablet 0.5 mg PO TID zolpidem 12.5 mg tablet,ext release multiphase 1 tab PO BEDTIME PRN (Reason: Sleep) cefuroxime axetil 250 mg tablet 250 mg PO Q12H 7 Days Qty: 14 0RF ketorolac 10 mg tablet 10 mg PO TID PRN (Reason: pain) 5 Days Qty: 14 0RF Rx Instructions: Patient monitored and observed in the emergency department after receiving ketorolac IM, and tolerated well, no complications, no reaction. prednisone 20 mg tablet 40 mg PO DAILY 5 Days Qty: 10 0RF benzonatate 100 mg capsule 100 mg PO TID PRN (Reason: cough) Qty: 14 0RF albuterol sulfate 90 mcg/actuation HFA aerosol inhaler 2 puff inhalation Q4-6H PRN (Reason: shortness of breath or wheezing) Qty: 6.7 0RF fluticasone propionate [Flonase Allergy Relief] 50 mcg/actuation spray,suspension 2 spray intranasal DAILY Qty: 16 0RF Rx Instructions: administer into each nostril albuterol sulfate 2.5 mg/0.5 mL solution for nebulization 5 mg inhalation Q4H PRN (Reason: shortness of breath or wheezing) Qty: 30 0RF dicyclomine 20 mg Tablet 20 mg PO QID omeprazole 40 mg capsule,delayed release(DR/EC) 1 cap PO QAM ondansetron 4 mg tablet,disintegrating 1 tab PO DAILY prednisone 10 mg tablet 10 mg PO DAILY Qty: 5 0RF oxycodone 5 mg tablet 1 tab PO TID PRN (Reason: Pain (Scale Score 7-10)) Qty: 10 0RF simethicone [Gas Relief (simethicone)] 80 mg Tablet,Chewable 80 mg PO QIDWMHS PRN (Reason: gas pains) Qty: 30 0RF duloxetine 20 mg capsule,delayed release(DR/EC) 20 mg PO BID nortriptyline 10 mg capsule 0 mg PO Referrals: Edmundo Burnham MD [Primary Care Provider] -
[2022-03-04 08:25] LABS: MANUAL DIFF FLAG NO
[2022-03-04 08:28] VITALS: BP 169/84; PULSE 81; RESP 19; TEMP 36.8; O2SAT 98
[2022-03-04 08:31] LABS: Appearance Urine Clear; Color Urine Yellow; Glucose Urine UA Negative (Negative); Leukocyte Esterase Urine Negative (Negative); Nitrite Urine Negative (Negative); PH 6.5 (5.0-9.0); Specific Gravity - Urine <= 1.005 (1.005-1.025); UMIC TRIGGER UACC YES; Urine Blood Trace (Negative); Urine Ketones Negative (Negative); Urine Protein Negative (Neg-Trace)
[2022-03-04 08:33] LABS: Bacteria Urine None Seen (None Seen); Basophils Percent Auto 0.4 % (0-2); Eosinophils Percent Auto 0.8 % (0-4); Hematocrit 37.4 % (37.0-47.0); Hemoglobin 12.6 g/dl (12.0-16.0); Hyaline Casts Urine 0-2 /LPF (0-2); Imm Gran Abs Auto 0.01 X10*3/uL (0.00-0.03); Imm Gran Pct Auto 0.2 % (0.0-0.4); Lymphocytes Absolute Auto 1.3 X10*3/uL (1.2-4.9); Lymphocytes Percent Auto 26.2 % (20-40); Mean Corpuscular HGB Conc 33.7 g/dl (31.0-35.0); Mean Corpuscular Hemoglobin 31.9 pg (27.0-33.0); Mean Corpuscular Volume 94.7 fL (80.0-98.0); Mean Platelet Volume 8.7 fL (9.4-12.3); Monocytes Absolute Auto 0.5 X10*3/uL (0.1-1.2); Monocytes Percent Auto 10.1 % (2-11); Neutrophils Percent Auto 62.3 % (45-73); Platelet Count 212 X10*3/uL (160-400); Red Blood Count 3.95 X10*6/uL (4.20-5.50); Red Cell Distribution Width 12.9 % (11.0-16.0); Squamous Epithelial Cell Urine 0-2 /HPF (0-2); UPreg QC Valid YES; Urine Pregnancy NEGATIVE (NEGATIVE); WBC Urine 0-5 /HPF (0-5); White Blood Count 4.9 X10*3/uL (4.8-10.8)
[2022-03-04 08:45] LABS: Alanine Aminotransferase 11 U/L (0-31); Albumin Level 4.1 g/dL (3.5-5.0); Alkaline Phosphatase 52 U/L (39-117); Anion Gap 15 (12-20); Aspartate Amino Transferase 15 U/L (5-31); Bilirubin Total 0.2 mg/dL (0.0-1.0); Blood Urea Nitrogen 6 mg/dL (9-16); Carbon Dioxide 24 mmol/L (22-29); Chloride 104 mmol/L (96-108); Creatinine Clr Calc Pharmacy 75.8; Estimated Glomerular Filt Rate > 60; Glucose Random 98 mg/dL (60-115); Potassium 3.9 mmol/L (3.3-5.1); Sodium 139 mmol/L (135-145); Total Protein 6.8 g/dL (6.5-8.0)
[2022-03-04] MEDS: iohexoL 350 MG/ML 100 ML INFUS..BTL IV (09:13)
[2022-03-04] MEDS: 0.9 % Sodium Chloride 1,000 ML 999 ML IV (09:44)
[2022-03-04] MEDS: Ketorolac Tromethamine 30 MG/ML VIAL 15 MG IVPUSH (09:56)
[2022-03-04 11:51] VITALS: BP 156/87; PULSE 73; RESP 17; TEMP 36.7; O2SAT 98
== END 2022-03-04 11:51 | disposition home or self-care (01) ==
PROVIDERS: Emergency Provider Student in an Organized Health Care Education/Training Program; PCP Internal Medicine
DX: M79.10 Myalgia, unspecified site (principal); R10.30 Lower abdominal pain, unspecified; C53.9 Malignant neoplasm of cervix uteri, unspecified; F17.210 Nicotine dependence, cigarettes, uncomplicated; Z92.3 Personal history of irradiation
CPT/HCPCS: 36415; 74177; 76830; 76856; 80053; 81001; 81025; 85025; 87040; 93975; 96361; 96374; 99283; 99284; J1885; Q9967

== ENCOUNTER 2022-05-06 12:23 | Outpatient (REF) | payer MEDICAID, SELFPAY ==
[2022-05-06 13:33] LABS: Leukocytes Stool Qualitative NEGATIVE (NEGATIVE)
[2022-05-06 14:02] LABS: Adenovirus F 40/41 Not Detected (Not Detect.); Astrovirus Not Detected (Not Detect.); Campylobacter Not Detected (Not Detect.); Cryptosporidium Not Detected (Not Detect.); Cyclospora cayetanensis Not Detected (Not Detect.); E. coli EAEC Not Detected (Not Detect.); E. coli EPEC Not Detected (Not Detect.); E. coli ETEC Not Detected (Not Detect.); E. coli STEC Not Detected (Not Detect.); Entamoeba histolytica Not Detected (Not Detect.); Giardia lamblia Not Detected (Not Detect.); Norovirus GI/GII Not Detected (Not Detect.); Plesiomonas shigelloides Not Detected (Not Detect.); Rotavirus A Not Detected (Not Detect.); Salmonella Not Detected (Not Detect.); Sapovirus Not Detected (Not Detect.); Shigella sp./EIEC Not Detected (Not Detect.); Vibrio Not Detected (Not Detect.); Vibrio Cholerae Not Detected (Not Detect.); Yersinia enterocolitica Not Detected (Not Detect.)
[2022-05-13 23:34] LABS: Calprotectin, Fecal 10 mcg/g
== END 2022-05-06 12:24 | disposition home or self-care (01) ==
LOC: HO.LNP 12:23
PROVIDERS: Visit Provider Internal Medicine Gastroenterology
DX: R19.7 Diarrhea, unspecified (principal); R14.0 Abdominal distension (gaseous)
CPT/HCPCS: 83993; 87177; 87209; 87507; 89055

== ENCOUNTER 2022-05-30 08:37 | Outpatient (REF) | payer OTHER, SELFPAY ==
[2022-05-30 09:58] LABS: Hematocrit 32.4 % (37.0-47.0); Hemoglobin 10.6 g/dl (12.0-16.0); Mean Corpuscular HGB Conc 32.7 g/dl (31.0-35.0); Mean Corpuscular Hemoglobin 32.6 pg (27.0-33.0); Mean Corpuscular Volume 99.7 fL (80.0-98.0); Mean Platelet Volume 9.5 fL (9.4-12.3); Platelet Count 210 X10*3/uL (160-400); Red Blood Count 3.25 X10*6/uL (4.20-5.50); White Blood Count 4.2 X10*3/uL (4.8-10.8)
[2022-05-30 11:10] LABS: TSH reflex Free T4 2.38 uIU/mL (0.32-4.0)
[2022-05-31 15:19] LABS: Immunoglobulin A 159 mg/dL (47-310)
[2022-05-31 21:29] LABS: Transglutaminase IgA <1.0 U/mL
== END 2022-05-30 08:38 | disposition home or self-care (01) ==
LOC: HO.LAB 08:37
PROVIDERS: PCP Internal Medicine; Visit Provider Internal Medicine Gastroenterology
DX: R19.7 Diarrhea, unspecified (principal)
CPT/HCPCS: 36415; 82784; 84443; 85027; 86364

== ENCOUNTER 2022-07-13 10:17 | Outpatient (REF) | payer OTHER, SELFPAY ==
[2022-07-13 10:31] LABS: MANUAL DIFF FLAG NO
[2022-07-13 10:46] LABS: Basophils Percent Auto 0.5 % (0-2); Eosinophils Absolute Auto 0.2 X10*3/uL (0.0-0.4); Eosinophils Percent Auto 3.1 % (0-4); Hematocrit 34.9 % (37.0-47.0); Hemoglobin 11.5 g/dl (12.0-16.0); Imm Gran Abs Auto 0.02 X10*3/uL (0.00-0.03); Imm Gran Pct Auto 0.4 % (0.0-0.4); Lymphocytes Absolute Auto 1.2 X10*3/uL (1.2-4.9); Lymphocytes Percent Auto 21.5 % (20-40); Mean Corpuscular Hemoglobin 32.9 pg (27.0-33.0); Mean Corpuscular Volume 99.7 fL (80.0-98.0); Monocytes Absolute Auto 0.4 X10*3/uL (0.1-1.2); Monocytes Percent Auto 7.9 % (2-11); Neutrophils Absolute Auto 3.7 x10*3/uL (2.0-8.3); Neutrophils Percent Auto 66.6 % (45-73); Platelet Count 231 X10*3/uL (160-400); White Blood Count 5.5 X10*3/uL (4.8-10.8)
[2022-07-13 11:31] LABS: Iron 56 mcg/dL (30-160); Percent Iron Saturation 17 % (15-50); Total Iron Binding Capacity 321 mcg/dL (228-428); Unsaturated Iron Binding 265 ug/dL
[2022-07-13 12:03] LABS: Ferritin 47 ng/mL (10-250); Folate 10.2 ng/mL (> or = 4.0); Vitamin B12 189 pg/mL (200-900)
== END 2022-07-13 10:18 | disposition home or self-care (01) ==
LOC: HO.LAB 10:17
PROVIDERS: PCP Internal Medicine; Visit Provider Internal Medicine Gastroenterology
DX: D64.9 Anemia, unspecified (principal)
CPT/HCPCS: 36415; 82607; 82728; 82746; 83540; 85025

== ENCOUNTER 2022-09-10 10:44 | Emergency (ER) | payer OTHER, SELFPAY ==
[2022-09-10 10:46] VITALS: BP 157/92; PULSE 104; RESP 18; TEMP 36.6; O2SAT 98; BMI 21.3
--- NOTE | 2022-09-10 11:43 | ED.EAR ---
HPI - Ear Problem General Chief complaint: Ear Problems Stated complaint: pain in both ears Time Seen by Provider: 09/10/22 11:10 Source: patient and RN notes reviewed Mode of arrival: ambulatory Limitations: no limitations History of Present Illness HPI Narrative: This is a 46-year-old female presenting to the emergency department for evaluation of bilateral ear pain since this morning. Patient reports that 2 days ago she noticed a dry cough as well as sinus pressure. She woke up this morning with severe left ear pain. She says several hours later her right ear started to hurt. She states that her as well as knees have been sick, and also have ear infections. She denies any recent swimming. Denies fevers, chills, chest pain, shortness of breath, abdominal pain, nausea, vomiting, or diarrhea. She has taken Tylenol and ibuprofen this morning without any relief. No other complaints or concerns at this time. MD Complaint: ear pain Location: bilateral Duration: constant Severity: severe Relieving factors: nothing Exacerbating factors: nothing Discharge from ear: no Associated symptoms ear: decreased hearing and tinnitus Treatment prior to arrival: none Related Data Home Medications Medication Instructions Recorded Confirmed clonazepam 0.5 mg tablet 0.5 mg PO TID 09/09/20 11/01/21 norgestimate 0.25 mg-ethinyl 1 tab PO DAILY 09/09/20 11/01/21 estradiol 35 mcg tablet (Estarylla) zolpidem 12.5 mg tablet,extended 1 tab PO BEDTIME PRN Sleep 09/09/20 11/01/21 release,multiphase dicyclomine 20 mg tablet 20 mg PO QID 04/06/21 11/01/21 omeprazole 40 mg capsule,delayed 1 cap PO QAM 04/23/21 11/01/21 release ondansetron 4 mg disintegrating 1 tab PO DAILY 04/23/21 11/01/21 tablet duloxetine 20 mg capsule,delayed 20 mg PO BID 05/13/21 11/01/21 release nortriptyline 10 mg capsule 0 mg PO 11/01/21 11/01/21 Previous Rx's Medication Instructions Recorded oxycodone 5 mg tablet 1 tab PO TID PRN Pain (Scale Score 05/06/21 7-10) #10 tabs prednisone 10 mg tablet 10 mg PO DAILY #5 tabs 05/06/21 simethicone 80 mg chewable tablet 80 mg PO QIDWMHS PRN gas pains #30 05/06/21 (Gas Relief (simethicone)) tabs cefuroxime axetil 250 mg tablet 250 mg PO Q12H 7 days #14 tabs 08/04/21 ketorolac 10 mg tablet 10 mg PO TID PRN pain 5 days #14 08/04/21 tabs diphenoxylate-atropine 2.5 1 tab PO QID PRN diarrhea #30 tabs 12/13/21 mg-0.025 mg tablet (Lomotil) albuterol sulfate 2.5 mg/0.5 mL 5 mg inhalation Q4H PRN shortness 01/24/22 solution for nebulization of breath or wheezing #30 ea albuterol sulfate 90 mcg/actuation 2 puff inhalation Q4-6H PRN 01/24/22 aerosol inhaler shortness of breath or wheezing #6.7 grams benzonatate 100 mg capsule 100 mg PO TID PRN cough #14 caps 01/24/22 fluticasone propionate 50 2 spray intranasal DAILY #16 grams 01/24/22 mcg/actuation nasal spray,suspension (Flonase Allergy Relief) prednisone 20 mg tablet 40 mg PO DAILY 5 days #10 tabs 01/24/22 ketorolac 10 mg tablet 10 mg PO Q6H PRN pain 5 days #20 03/04/22 tabs amoxicillin 875 mg-potassium 1 tab PO BID 7 days #14 tabs 09/10/22 clavulanate 125 mg tablet fluconazole 150 mg tablet 150 mg PO Q3D 2 doses #2 tabs 09/10/22 Allergies Allergy/AdvReac Type Severity Reaction Status Date / Time guaifenesin [GUAIFENESIN] Allergy Intermediate HIVES Verified 09/10/22 10:49 metaproterenol [From Alupent] Allergy Mild PALPITATIONS, Verified 09/10/22 10:49 RASH Review of Systems Review of Systems: Yes all other systems are reviewed and are negative Constitutional: Constitutional: Reports as per [facility] Past Medical History Attestation statement: The following information was validated with the patient. Medical History Anxiety Cervical cancer Cholecystectomy planned Colitis Colitis COVID-19 Diarrhea Incisional hernia Radiation cystitis Rectal bleed Small bowel obstruction Surgical History History of exploratory laparotomy Hx of elbow surgery Tubal ligation status Family History Family History Other No family history of coronary artery disease Social History Social History Household Members: Spouse and Family Housing: House Do you presently have visiting nurse or other home services: No Alcohol intake: never Patient Tobacco Use Status: Current everyday Tobacco user Tobacco use type: Cigarette Cigarettes Per Day: 2 Years Smoked: 25 Second Hand Smoke Exposure: No Substance Use Type: Other Advance Directives: Yes Advance Directives on File: Yes Advance Directives Date on File: 03/17/21 service: No Current occupational status: employed Physical Exam Vital Signs: Vital Signs: Last Vital Signs Temp 97.8 F 09/10/22 10:46 Pulse 104 H 09/10/22 10:46 Resp 18 09/10/22 10:46 BP 157/92 H 09/10/22 10:46 Pulse Ox 98 09/10/22 10:46 O2 Del Method Room Air 09/10/22 10:46 BMI result Body Mass Index 21.3 Const: General: cooperative, comfortable and no acute distress Orientation/consciousness: patient oriented x3 Limitations: no limitations HEENT: Other: Left TM is erythematous and bulging. No drainage noted. Right ear is obscured with cerumen however pain with examination. No mastoid tenderness to palpation. Oropharynx is mildly erythematous, no tonsillar hypertrophy or exudate. Uvula is midline Head: Yes normal to inspection, Yes normocephalic and Yes atraumatic Ears: hearing grossly normal bilaterally General nose exam: Normal external nose present Face and sinus: Yes normal facial exam Mouth: Normal oral and palatal mucosa present, oropharynx normal and moist mucous membranes Throat: Yes posterior oropharynx normal Eyes: General: appearance normal, both eyes and all related structures Eyelids: Yes eyelids normal Conjunctivae: conjunctivae normal Sclerae: sclerae normal Pupils: Equal, round and reactive pupils present EOM: EOMs intact bilaterally Neck: Neck: Yes normal visual inspection, Yes full ROM and Yes no lymphadenopathy Lymphatic: no lymphadenopathy noted Chest: Chest palpation & inspection: normal inspection of the chest Resp: Effort & Inspection: normal respiratory effort and able to speak in complete sentences Auscultation: clear to auscultation bilaterally, no crackles, no rales, no rhonchi and no wheezes Cardio: Rate: regular rate Rhythm: regular rhythm Heart sounds: S1 normal heart sound present and S2 normal heart sound present GI: Inspection: Yes normal to inspection Skin: General skin exam: no rashes or lesions noted Trauma: no lacerations or abrasions Wounds: no wounds Neuro: General: patient oriented x3 and moves all extremities Cranial nerves: Yes Equal, round and reactive pupils present Extrem: General: Yes normal to inspection Right upper extremity: normal to inspection Left upper extremity: normal to inspection Right lower extremity: normal to inspection Left lower extremity: normal to inspection Course Reevaluation(s) Reevaluation #1: Patient feeling improved, tested negative for influenza, COVID, and strep pharyngitis. Symptoms consistent with bilateral otitis media. Will treat with antibiotics. Patient also reports that she often times gets yeast infections after taking antibiotics, given fluconazole prophylactic prescription if this occurs. Given return precautions. Patient understands and agrees with plan. Patient stable for discharge. Time: 12:39 Medications Administered Discontinued Medications Generic Name Dose Route Start Last Admin Trade Name Freq PRN Reason Stop Dose Admin Oxycodone HCl 5 mg 09/10/22 11:48 09/10/22 11:56 Oxycodone Hcl Immed Release 5 Mg Tablet PO 09/10/22 11:49 5 mg ONCE ONE Administration Medical Decision Making Medical Decision Making MDM Narrative: 46-year-old female presenting to the emergency department for evaluation of severe bilateral ear pain since this morning. Patient's symptoms consistent with otitis media. Differential diagnoses include list below. Less likely mastoiditis given patient's onset of symptoms and no mastoid tenderness to palpation. Patient is nontoxic appearing and afebrile. Patient has tried [id number] ibuprofen and Tylenol without any relief. On examination, left TM is erythematous and bulging, right ear is obscured with cerumen. However patient has mildly erythematous oropharynx, will test for strep pharyngitis COVID and flu. Patient appears uncomfortable due to pain, will medicate with oxycodone 5 mg p.o. Differential Diagnosis Differential Diagnoses: The differential diagnosis associated with the presentation includes COVID, influenza, strep pharyngitis, otitis media, otitis externa Lab Data [facility] Lab Attestation statement: I reviewed the patient's lab results. Labs: Lab Results 09/10/22 09/10/22 09/10/22 Range/Units 11:49 11:50 11:51 COVID-19 (JANIS) Negative (Negative) COVID-19 Clin Com See Note Influenza Type A (LINDA) Negative (Negative) Influenza Type B (LINDA) Negative (Negative) Influenza A & B Note See Note S. pyogenes GrpA LINDA Negative (Negative) Radiology Impression Discussion of test interpretation with radiology: I have reviewed the radiologist's reading. External Record Review External record reviewed: Inpatient record, Office record, Outpatient record, Prior outpatient labs, Prior outpatient radiology, Primary care record and Outside ED record Discharge Plan Discharge Clinical Impression: Otitis media Patient Disposition: Home, Self-Care Instructions: Ear Infection (ED) Additional Instructions: Her symptoms are due to a ear infection. You tested negative for COVID, flu, and strep throat today. Please take prescribed medication as directed. Finish the entire course even if your feeling better. I also prescribed you oral fluconazole if you need it for vaginal yeast infection after taking course of antibiotics You may take Tylenol or ibuprofen as needed for your pain and symptoms. Watch for any new or worsening symptoms including but not limited to fevers that are not responding to Tylenol or Motrin, worsening pain. Please return if any of the symptoms or worsening symptoms occur. Follow-up with your primary care physician. Prescriptions: New amoxicillin-pot clavulanate 875-125 mg tablet 1 tab PO BID 7 Days Qty: 14 0RF fluconazole 150 mg tablet 150 mg PO Q3D Qty: 2 0RF Rx Instructions: may repeat second dose 72 hrs after first dose if symptoms persist No Action diphenoxylate-atropine [Lomotil] 2.5-0.025 mg tablet 1 tab PO QID PRN (Reason: diarrhea) Qty: 30 0RF norgestimate-ethinyl estradiol [Estarylla] 0.25-35 mg-mcg tablet 1 tab PO DAILY clonazepam 0.5 mg tablet 0.5 mg PO TID zolpidem 12.5 mg tablet,ext release multiphase 1 tab PO BEDTIME PRN (Reason: Sleep) cefuroxime axetil 250 mg tablet 250 mg PO Q12H 7 Days Qty: 14 0RF ketorolac 10 mg tablet 10 mg PO TID PRN (Reason: pain) 5 Days Qty: 14 0RF Rx Instructions: Patient monitored and observed in the emergency department after receiving ketorolac IM, and tolerated well, no complications, no reaction. prednisone 20 mg tablet 40 mg PO DAILY 5 Days Qty: 10 0RF benzonatate 100 mg capsule 100 mg PO TID PRN (Reason: cough) Qty: 14 0RF albuterol sulfate 90 mcg/actuation HFA aerosol inhaler 2 puff inhalation Q4-6H PRN (Reason: shortness of breath or wheezing) Qty: 6.7 0RF fluticasone propionate [Flonase Allergy Relief] 50 mcg/actuation spray,suspension 2 spray intranasal DAILY Qty: 16 0RF Rx Instructions: administer into each nostril albuterol sulfate 2.5 mg/0.5 mL solution for nebulization 5 mg inhalation Q4H PRN (Reason: shortness of breath or wheezing) Qty: 30 0RF dicyclomine 20 mg Tablet 20 mg PO QID omeprazole 40 mg capsule,delayed release(DR/EC) 1 cap PO QAM ondansetron 4 mg tablet,disintegrating 1 tab PO DAILY prednisone 10 mg tablet 10 mg PO DAILY Qty: 5 0RF oxycodone 5 mg tablet 1 tab PO TID PRN (Reason: Pain (Scale Score 7-10)) Qty: 10 0RF simethicone [Gas Relief (simethicone)] 80 mg Tablet,Chewable 80 mg PO QIDWMHS PRN (Reason: gas pains) Qty: 30 0RF ketorolac 10 mg tablet 10 mg PO Q6H PRN (Reason: pain) 5 Days Qty: 20 0RF Rx Instructions: Patient received Toradol in the emergency room. duloxetine 20 mg capsule,delayed release(DR/EC) 20 mg PO BID nortriptyline 10 mg capsule 0 mg PO
[2022-09-10] MEDS: oxyCODONE HCl Immed Release 5 MG TABLET PO (11:56)
[2022-09-10 12:30] LABS: IDNOW Serial# 08D9AD1C
[2022-09-10 12:31] LABS: IDNOW Serial# 55D5AD1C; Influenza A Negative (Negative); Influenza B2 Negative (Negative)
[2022-09-10 12:31] LABS: IDNOW Serial# 08D9AD1C; Strep A Nucleic Acid Negative (Negative)
[2022-09-10 12:31] LABS: COVID-19 Test Negative (Negative)
[2022-09-10 12:59] VITALS: BP 141/83; PULSE 92; RESP 15; TEMP 36.7; O2SAT 99
== END 2022-09-10 13:00 | disposition home or self-care (01) ==
PROVIDERS: Physician Assistant Medical; Emergency Provider Emergency Medicine; PCP Internal Medicine
DX: H66.93 Otitis media, unspecified, bilateral (principal); Z20.822 Contact with and (suspected) exposure to COVID-19; F17.210 Nicotine dependence, cigarettes, uncomplicated
CPT/HCPCS: 87502; 87635; 87651; 99283; 99284

== ENCOUNTER 2022-12-08 11:19 | Outpatient (REF) | payer OTHER, SELFPAY ==
[2022-12-08 11:29] LABS: MANUAL DIFF FLAG NO
[2022-12-08 11:46] LABS: Basophils Percent Auto 0.5 % (0-2); Eosinophils Absolute Auto 0.1 X10*3/uL (0.0-0.4); Eosinophils Percent Auto 2.1 % (0-4); Hematocrit 36.9 % (37.0-47.0); Hemoglobin 12.2 g/dl (12.0-16.0); Imm Gran Abs Auto 0.03 X10*3/uL (0.00-0.03); Imm Gran Pct Auto 0.5 % (0.0-0.4); Lymphocytes Absolute Auto 1.4 X10*3/uL (1.2-4.9); Lymphocytes Percent Auto 24.6 % (20-40); Mean Corpuscular HGB Conc 33.1 g/dl (31.0-35.0); Mean Corpuscular Volume 96.9 fL (80.0-98.0); Mean Platelet Volume 8.6 fL (9.4-12.3); Monocytes Absolute Auto 0.4 X10*3/uL (0.1-1.2); Monocytes Percent Auto 7.8 % (2-11); Neutrophils Absolute Auto 3.6 x10*3/uL (2.0-8.3); Neutrophils Percent Auto 64.5 % (45-73); Platelet Count 234 X10*3/uL (160-400); Red Blood Count 3.81 X10*6/uL (4.20-5.50); Red Cell Distribution Width 13.2 % (11.0-16.0); White Blood Count 5.6 X10*3/uL (4.8-10.8)
[2022-12-08 12:41] LABS: Iron 172 mcg/dL (30-160); Percent Iron Saturation 42 % (15-50); Total Iron Binding Capacity 409 mcg/dL (228-428); Unsaturated Iron Binding 237 ug/dL
[2022-12-08 12:45] LABS: Ferritin 38 ng/mL (10-250)
[2022-12-08 12:57] LABS: Folate 10.7 ng/mL (> or = 4.0); Vitamin B12 370 pg/mL (200-900)
== END 2022-12-08 11:20 | disposition home or self-care (01) ==
LOC: HO.LAB 11:19
PROVIDERS: PCP Internal Medicine; Visit Provider Internal Medicine Gastroenterology
DX: D64.9 Anemia, unspecified (principal)
CPT/HCPCS: 36415; 82607; 82728; 82746; 83540; 85025

== ENCOUNTER 2023-04-18 14:07 | Outpatient (REF) | payer OTHER, SELFPAY ==
--- NOTE | ~2023-04-18 | XR_ITS ---
EXAMINATION: XR ABDOMEN COMPLETE CLINICAL INDICATION: Abdominal bloating, diarrhea unspecified COMPARISON: None available. TECHNIQUE: AP supine and upright views of the abdomen. The upright view does not include above the right hemidiaphragm precluding evaluation for free air FINDINGS: The bowel gas pattern is normal with no evidence of ileus or obstruction. Small and large bowel are normal caliber. Multiple anastomotic sutures are seen in the right lower quadrant. Surgical clips are seen in the right upper quadrant consistent with prior cholecystectomy. Bilateral fallopian tube clips are seen in the pelvis. There is multilevel degenerative changes of the lumbar spine. No unusual calcifications are seen. XR/XR abdomen min 2V IMPRESSION: Nonobstructive bowel gas pattern.
[2023-04-18 15:03] LABS: Hematocrit 37.3 % (37.0-47.0); Hemoglobin 12.4 g/dl (12.0-16.0); Mean Corpuscular HGB Conc 33.2 g/dl (31.0-35.0); Mean Corpuscular Hemoglobin 31.7 pg (27.0-33.0); Mean Corpuscular Volume 95.4 fL (80.0-98.0); Mean Platelet Volume 8.8 fL (9.4-12.3); Platelet Count 245 X10*3/uL (160-400); Red Blood Count 3.91 X10*6/uL (4.20-5.50); Red Cell Distribution Width 13.7 % (11.0-16.0); White Blood Count 5.2 X10*3/uL (4.8-10.8)
[2023-04-18 15:31] LABS: Alanine Aminotransferase 11 U/L (0-31); Albumin Level 3.9 g/dL (3.5-5.0); Alkaline Phosphatase 59 U/L (39-117); Aspartate Amino Transferase 18 U/L (5-31); Bilirubin Direct < 0.2 mg/dL (0.0-0.5); Bilirubin Total 0.2 mg/dL (0.0-1.0); Lipase 15 U/L (8-78); Total Protein 6.5 g/dL (6.5-8.0)
[2023-04-18 15:45] LABS: Thyroid Stimulating Hormone 0.59 uIU/mL (0.32-4.0)
[2023-04-18 21:27] LABS: Leukocytes Stool Qualitative NEGATIVE (NEGATIVE)
[2023-04-19 12:03] LABS: Adenovirus F 40/41 Not Detected (Not Detect.); Astrovirus Not Detected (Not Detect.); Campylobacter Not Detected (Not Detect.); Cryptosporidium Not Detected (Not Detect.); Cyclospora cayetanensis Not Detected (Not Detect.); E. coli EAEC Not Detected (Not Detect.); E. coli EPEC Not Detected (Not Detect.); E. coli ETEC Not Detected (Not Detect.); E. coli STEC Not Detected (Not Detect.); Entamoeba histolytica Not Detected (Not Detect.); Giardia lamblia Not Detected (Not Detect.); Norovirus GI/GII Not Detected (Not Detect.); Plesiomonas shigelloides Not Detected (Not Detect.); Rotavirus A Not Detected (Not Detect.); Salmonella Not Detected (Not Detect.); Sapovirus Not Detected (Not Detect.); Shigella sp./EIEC Not Detected (Not Detect.); Vibrio Not Detected (Not Detect.); Vibrio Cholerae Not Detected (Not Detect.); Yersinia enterocolitica Not Detected (Not Detect.)
[2023-04-26 15:18] LABS: Calprotectin, Fecal 96 mcg/g
== END 2023-04-18 14:08 | disposition home or self-care (01) ==
LOC: HO.XRAY 14:07
PROVIDERS: PCP Registered Nurse; Visit Provider Internal Medicine Gastroenterology
DX: R14.0 Abdominal distension (gaseous) (principal); R19.7 Diarrhea, unspecified
CPT/HCPCS: 36415; 74019; 80076; 83690; 83993; 84443; 85027; 87177; 87209; 87507; 89055

== ENCOUNTER 2023-07-31 15:59 | Outpatient (REF) | payer OTHER, SELFPAY ==
[2023-07-31 16:17] LABS: MANUAL DIFF FLAG NO
[2023-07-31 16:28] LABS: Basophils Percent Auto 0.5 % (0-2); Eosinophils Absolute Auto 0.2 X10*3/uL (0.0-0.4); Eosinophils Percent Auto 2.5 % (0-4); Hematocrit 37.8 % (37.0-47.0); Hemoglobin 12.7 g/dl (12.0-16.0); Imm Gran Abs Auto 0.01 X10*3/uL (0.00-0.03); Imm Gran Pct Auto 0.2 % (0.0-0.4); Lymphocytes Absolute Auto 1.8 X10*3/uL (1.2-4.9); Lymphocytes Percent Auto 30.4 % (20-40); Mean Corpuscular HGB Conc 33.6 g/dl (31.0-35.0); Mean Corpuscular Hemoglobin 32.4 pg (27.0-33.0); Mean Corpuscular Volume 96.4 fL (80.0-98.0); Mean Platelet Volume 8.7 fL (9.4-12.3); Monocytes Absolute Auto 0.4 X10*3/uL (0.1-1.2); Neutrophils Absolute Auto 3.5 x10*3/uL (2.0-8.3); Neutrophils Percent Auto 59.4 % (45-73); Platelet Count 226 X10*3/uL (160-400); Red Blood Count 3.92 X10*6/uL (4.20-5.50)
[2023-07-31 17:22] LABS: Iron 84 mcg/dL (30-160); Percent Iron Saturation 24 % (15-50); Total Iron Binding Capacity 344 mcg/dL (228-428); Unsaturated Iron Binding 260 ug/dL
[2023-07-31 17:39] LABS: Ferritin 64 ng/mL (10-250)
[2023-07-31 17:45] LABS: Vitamin B12 451 pg/mL (200-900)
== END 2023-07-31 16:00 | disposition home or self-care (01) ==
LOC: HO.LAB 15:59
PROVIDERS: PCP Physician Assistant Surgical; Visit Provider Internal Medicine Gastroenterology
DX: K52.0 Gastroenteritis and colitis due to radiation (principal)
CPT/HCPCS: 36415; 82607; 82728; 83540; 85025

== ENCOUNTER 2023-08-11 13:45 | Emergency (ER) | payer OTHER, SELFPAY ==
--- NOTE | ~2023-08-11 | XR_ITS ---
EXAMINATION: XR ELBOW, RIGHT CLINICAL INFORMATION: COMPARISON: None available. TECHNIQUE: AP, lateral, and oblique views of the right elbow. FINDINGS: The bones and soft tissues are normal. No fracture or joint effusion. There is olecranon spur Alignment is anatomic. Joint spaces are maintained. XR/XR elbow RT 2V IMPRESSION: No acute abnormalities. No joint effusion or fractures
[2023-08-11 13:54] VITALS: BP 137/78; PULSE 80; RESP 18; TEMP 36.3; O2SAT 96; BMI 22.3
--- NOTE | 2023-08-11 14:13 | ED.EXTPRO ---
HPI - Extremity Problem General Chief complaint: Extremity Problem Stated complaint: Pain R arm Time Seen by Provider: 08/11/23 14:47 Source: patient Mode of arrival: ambulatory Limitations: no limitations History of Present Illness ED Provider: Matt Kay PA-C HPI Narrative: 47 yold female with pmh of right Right elbow tendinitis presents to ED for right elbow pain. Patient states having plasma injection into her right elbow help with the pain at the orthopedic office and for the past 2 weeks she has had right elbow pain where she had an injection radiating down arm. Patient denies any new trauma. Patient states pain is worse on movement. Patient denies any arm swelling, chest pain, shortness of breath, or pleurisy. Patient denies any fever or chills. Related Data Home Medications ?Medication ?Instructions ?Recorded ?Confirmed clonazepam 0.5 mg tablet 0.5 mg PO TID 09/09/20 11/01/21 norgestimate 0.25 mg-ethinyl 1 tab PO DAILY 09/09/20 11/01/21 estradiol 35 mcg tablet (Estarylla) zolpidem 12.5 mg tablet,extended 1 tab PO BEDTIME PRN Sleep 09/09/20 11/01/21 release,multiphase dicyclomine 20 mg tablet 20 mg PO QID 04/06/21 11/01/21 omeprazole 40 mg capsule,delayed 1 cap PO QAM 04/23/21 11/01/21 release ondansetron 4 mg disintegrating 1 tab PO DAILY 04/23/21 11/01/21 tablet duloxetine 20 mg capsule,delayed 20 mg PO BID 05/13/21 11/01/21 release nortriptyline 10 mg capsule 0 mg PO 11/01/21 11/01/21 Previous Rx's ?Medication ?Instructions ?Recorded oxycodone 5 mg tablet 1 tab PO TID PRN Pain (Scale Score 05/06/21 7-10) #10 tabs prednisone 10 mg tablet 10 mg PO DAILY #5 tabs 05/06/21 simethicone 80 mg chewable tablet 80 mg PO QIDWMHS PRN gas pains #30 05/06/21 (Gas Relief (simethicone)) tabs cefuroxime axetil 250 mg tablet 250 mg PO Q12H 7 days #14 tabs 08/04/21 ketorolac 10 mg tablet 10 mg PO TID PRN pain 5 days #14 08/04/21 tabs diphenoxylate-atropine 2.5 1 tab PO QID PRN diarrhea #30 tabs 12/13/21 mg-0.025 mg tablet (Lomotil) albuterol sulfate 2.5 mg/0.5 mL 5 mg inhalation Q4H PRN shortness 01/24/22 solution for nebulization of breath or wheezing #30 ea albuterol sulfate 90 mcg/actuation 2 puff inhalation Q4-6H PRN 01/24/22 aerosol inhaler shortness of breath or wheezing #6.7 grams benzonatate 100 mg capsule 100 mg PO TID PRN cough #14 caps 01/24/22 fluticasone propionate 50 2 spray intranasal DAILY #16 grams 01/24/22 mcg/actuation nasal spray,suspension (Flonase Allergy Relief) prednisone 20 mg tablet 40 mg (2 x 20 mg) PO DAILY 5 days 01/24/22 #10 tabs ketorolac 10 mg tablet 10 mg PO Q6H PRN pain 5 days #20 03/04/22 tabs amoxicillin 875 mg-potassium 1 tab PO BID 7 days #14 tabs 09/10/22 clavulanate 125 mg tablet fluconazole 150 mg tablet 150 mg PO Q3D 2 doses #2 tabs 09/10/22 ketorolac 10 mg tablet 10 mg PO QID PRN pain 5 days #20 08/11/23 tabs prednisone 20 mg tablet 40 mg (2 x 20 mg) PO DAILY 5 days 08/11/23 #10 tabs Allergies Allergy/AdvReac Type Severity Reaction Status Date / Time guaifenesin [GUAIFENESIN] Allergy Intermediate HIVES Verified 08/11/23 14:00 metaproterenol [From Alupent] Allergy Mild PALPITATIONS, Verified 08/11/23 14:00 RASH Review of Systems Review of Systems: Right elbow pain Yes all other systems are reviewed and are negative [facility] Past Medical History Medical History Anxiety Cervical cancer Cholecystectomy planned Colitis Colitis COVID-19 Diarrhea Incisional hernia Radiation cystitis Rectal bleed Small bowel obstruction Surgical History History of exploratory laparotomy Hx of elbow surgery Tubal ligation status Family History Family History Other No family history of coronary artery disease Social History Social History Household Members: Spouse and Family Housing: House Do you presently have visiting nurse or other home services: No Alcohol intake: never Patient Tobacco Use Status: Current everyday Tobacco user Tobacco use type: Cigarette Cigarettes Per Day: 2 Years Smoked: 25 Second Hand Smoke Exposure: No Substance Use Type: Other Advance Directives: Yes Advance Directives on File: Yes Advance Directives Date on File: 03/17/21 Do you have a plan to hurt others: No Plan service: No Current occupational status: employed Physical Exam Vital Signs: Vital Signs: Last Vital Signs Temp 97.1 F 08/11/23 18:04 Pulse 78 08/11/23 18:04 Resp 18 08/11/23 18:04 BP 144/78 H 08/11/23 18:04 Pulse Ox 100 08/11/23 18:04 O2 Del Method Room Air 08/11/23 18:04 BMI result Body Mass Index 22.3 Const: General: cooperative, healthy appearing, comfortable, no acute distress, well developed, alert, awake and Physically active Orientation/consciousness: patient oriented x3 HEENT: Head: Yes normal to inspection, Yes No palpable skull fracture present, Yes normocephalic and Yes atraumatic Eyes: General: appearance normal, both eyes and all related structures Neck: Neck: Yes normal visual inspection, Yes full ROM, Yes no lymphadenopathy, Yes no meningeal signs, Yes trachea midline, Yes supple, No anterior neck swelling and No tender Chest: Chest palpation & inspection: normal inspection of the chest and normal palpation of entire chest wall Resp: Effort & Inspection: normal respiratory effort and able to speak in complete sentences Cardio: Jugular venous distension: no JVD Heart sounds: S1 normal heart sound present and S2 normal heart sound present GI: Inspection: Yes normal to inspection Palpation (GI): Soft to palpation, not firm, nontender, no guarding and not rigid : General: Yes no CVA tenderness Back/Spine/Pelvis: Back: no CVA tenderness and No back tenderness Skin: General skin exam: no rashes or lesions noted, elasticity normal and turgor normal Neuro: General: patient oriented x3, gait normal, tone normal, moves all extremities, Normal light touch and pain sensation, no meningeal signs, no focal motor deficits, CN's II-XI intact bilaterally and normal sensation to monofilament Extrem: General: Yes normal to inspection and Yes full ROM Shoulder/upper arm images: 1. Positive for tenderness on palpation. Positive for pain on range of motion. Negative for ecchymosis, fluctuance, mass, or red streaks. Rest of extremity normal. Motor/neuro/vascular exam intact. Right upper extremity normal temperature. Psych: Appearance: grossly normal, well kempt and not disheveled Course Course Course Narrative: This is an RME done by [facility]: Additional HPI, ROS, PE not included below will be deferred to primary provider. 47 yo f presents w/ r elbow pain X 2 weeks, ortho advised her to come in has hx of surgery to r elbow a few years ago PE- painful rom to right elbow Plan- elbow xray Medications Administered Discontinued Medications Generic Name Dose Route Start Last Admin Trade Name Crystal PRN Reason Stop Dose Admin Ketorolac Tromethamine 30 mg 08/11/23 15:20 08/11/23 15:30 Ketorolac Tromethamine 30 Mg/Ml Vial IM 08/11/23 15:21 30 mg ONCE ONE Administration Prednisone 60 mg 08/11/23 15:20 08/11/23 15:31 Prednisone 20 Mg Tablet PO 08/11/23 15:21 60 mg ONCE ONE Administration Medical Decision Making Medical Decision Making [facility] Narrative: 47-year-old female with history of right elbow tendinitis presents to ED for right elbow pain since having plasma injection into right elbow tendon to help with the pain. Patient states pain on range of motion. Patient denies any upper extremity swelling, bluish black discoloration, numbness/ tingling, fever, chills, chest pain, pleurisy, or shortness of breath. X-ray ordered. Toradol prednisone ordered. 5:46pm: patient's pain improves after given Toradol and prednisone. Patient has complete range of motion of elbow and feels better. Physical exam does not indicate septic joint, DVT, cellulitis, lymphangitis, fracture, compartment syndrome, or arterial occlusion. Patient explained worrisome signs and informed to return to the ED immediately. Differential Diagnosis Differential Diagnoses: The differential diagnosis associated with the presentation includes ( Elbow tendinitis, fracture, cellulitis,) Admission/Observation Consideration of admission/observation: Escalation of care including admission/observation considered Independent Interpretation I performed an independent interpretation of an: Plain X-Ray Radiology Impression Discussion of test interpretation with radiology: I have reviewed the radiologist's reading. Independent Historian Clinical information obtained from an independent historian. History obtained from or confirmed by: Other ( patient) External Record Review External record reviewed: Other ( prior visit) Prescription Management I considered prescription management with: Pain Medication Discharge Plan Discharge Clinical Impression: Elbow tendonitis Patient Disposition: Home, Self-Care Instructions: Tennis Elbow (ED) Additional Instructions: return to the ED immediately for any swelling, redness, bluish black discoloration, pus discharge, foul odor, fever, chills, stiffness in extremity, chest pain, shortness of breath, chest pain on inspiration, hotness/coldness of extremity, or any other concerning symptoms. Recommend follow-up with your orthopedic surgeon. Prescriptions: New prednisone 20 mg tablet 40 mg PO DAILY 5 Days Qty: 10 0RF ketorolac 10 mg tablet 10 mg PO QID PRN (Reason: pain) 5 Days Qty: 20 0RF Rx Instructions: Patient received Toradol 30 mg IM in the ED. No Action diphenoxylate-atropine [Lomotil] 2.5-0.025 mg tablet 1 tab PO QID PRN (Reason: diarrhea) Qty: 30 0RF norgestimate-ethinyl estradiol [Estarylla] 0.25-35 mg-mcg tablet 1 tab PO DAILY clonazepam 0.5 mg tablet 0.5 mg PO TID zolpidem 12.5 mg tablet,ext release multiphase 1 tab PO BEDTIME PRN (Reason: Sleep) cefuroxime axetil 250 mg tablet 250 mg PO Q12H 7 Days Qty: 14 0RF ketorolac 10 mg tablet 10 mg PO TID PRN (Reason: pain) 5 Days Qty: 14 0RF Rx Instructions: Patient monitored and observed in the emergency department after receiving ketorolac IM, and tolerated well, no complications, no reaction. prednisone 20 mg tablet 40 mg PO DAILY 5 Days Qty: 10 0RF benzonatate 100 mg capsule 100 mg PO TID PRN (Reason: cough) Qty: 14 0RF albuterol sulfate 90 mcg/actuation HFA aerosol inhaler 2 puff inhalation Q4-6H PRN (Reason: shortness of breath or wheezing) Qty: 6.7 0RF fluticasone propionate [Flonase Allergy Relief] 50 mcg/actuation spray,suspension 2 spray intranasal DAILY Qty: 16 0RF Rx Instructions: administer into each nostril albuterol sulfate 2.5 mg/0.5 mL solution for nebulization 5 mg inhalation Q4H PRN (Reason: shortness of breath or wheezing) Qty: 30 0RF dicyclomine 20 mg Tablet 20 mg PO QID omeprazole 40 mg capsule,delayed release(DR/EC) 1 cap PO QAM ondansetron 4 mg tablet,disintegrating 1 tab PO DAILY prednisone 10 mg tablet 10 mg PO DAILY Qty: 5 0RF oxycodone 5 mg tablet 1 tab PO TID PRN (Reason: Pain (Scale Score 7-10)) Qty: 10 0RF simethicone [Gas Relief (simethicone)] 80 mg Tablet,Chewable 80 mg PO QIDWMHS PRN (Reason: gas pains) Qty: 30 0RF ketorolac 10 mg tablet 10 mg PO Q6H PRN (Reason: pain) 5 Days Qty: 20 0RF Rx Instructions: Patient received Toradol in the emergency room. amoxicillin-pot clavulanate 875-125 mg tablet 1 tab PO BID 7 Days Qty: 14 0RF fluconazole 150 mg tablet 150 mg PO Q3D Qty: 2 0RF Rx Instructions: may repeat second dose 72 hrs after first dose if symptoms persist duloxetine 20 mg capsule,delayed release(DR/EC) 20 mg PO BID nortriptyline 10 mg capsule 0 mg PO Stand Alone Forms: Work/School Release Interventions: ED Discharge Assessment Last Done: 08/11/23 18:04 Discharge Date/Time: 08/11/23 18:08 Print Language: Ethiopian
[2023-08-11] MEDS: Ketorolac Tromethamine 30 MG/ML VIAL IM (15:30)
[2023-08-11] MEDS: predniSONE 20 MG TABLET 60 MG PO (15:31)
--- NOTE | 2023-08-11 16:46 | PC.NURSE ---
patient a&ox, awaiting results of imagining from provider pt states her pain has reduced to a 7/10 which is tolerable for her, call quinones within reach, will continue to monitor
[2023-08-11 17:05] VITALS: BP 144/78; PULSE 78; RESP 18; TEMP 36.2; O2SAT 100
[2023-08-11 18:04] VITALS: BP 144/78; PULSE 78; RESP 18; TEMP 36.2; O2SAT 100
== END 2023-08-11 18:08 | disposition home or self-care (01) ==
PROVIDERS: Emergency Provider Emergency Medicine Emergency Medical Services; PCP Physician Assistant Surgical
DX: M77.11 Lateral epicondylitis, right elbow (principal); M79.601 Pain in right arm
CPT/HCPCS: 73070; 96372; 99283; 99284; J1885

== ENCOUNTER 2023-09-13 15:05 | Outpatient (AMB) | payer OTHER, SELFPAY ==
[2023-09-13 15:06] VITALS: BMI 21.8
--- NOTE | 2023-09-13 15:06 | MHC.OFFVIS ---
Vital Signs 09/13/23 15:06 Height 5 ft 3 in Weight 123 lb BMI 21.8 Intake Visit Reasons: bleeding hemorrhoids Intake Note: This patient presents for bleeding hemorrhoids assessment. Pt c/o; reports rectal bleeding after every bowel movements, reports Hx of anemia, reports loose stools. 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 Seen her in 2021 for this same problem. At that time, she was seeing blood on wiping after a bowel movement. She says that a few times, she would describe this as ?heavy?. She says the stools themselves are not bloody but there is note of blood separate from the stool. She denies pain with bowel movements. She says that she often times has diarrhea as well and she feels that this has been causing some irritation her in her anus. Over the past few months however, she says that the bleeding seems to be heavier . She says that this seems to happen practically every day as well. She describes burning around her anus. She says she has multiple bowel movements a day and counts about 10 bowel movements, usually loose, every day. She says that she has been like this for about 2 years and she attributes this to the radiation of her cervix for cancer in 2020. She had also undergone small-bowel resection for obstruction in 2021 and there was note of some radiation changes in the small bowel loops at that time. [facility] Medical History Rectal bleed Diarrhea Incisional hernia Small bowel obstruction COVID-19 Anxiety Colitis Colitis Cholecystectomy planned Cervical cancer Radiation cystitis Surgical History History of exploratory laparotomy Hx of elbow surgery Tubal ligation status Family History Other No family history of coronary artery disease Social History Household Members: Spouse and Family Housing: House Do you presently have visiting nurse or other home services: No Alcohol intake: never Patient Tobacco Use Status: Current everyday Tobacco user Tobacco use type: Cigarette Cigarettes Per Day: 2 Years Smoked: 25 Second Hand Smoke Exposure: No Substance Use Type: Other Advance Directives Date on File: 03/17/21 service: No Current occupational status: employed Review of Systems Const Denies chills and Denies fever(s) Card Denies chest pain, Denies dyspnea and Denies dyspnea on exertion Resp Denies cough, Denies dyspnea and Denies dyspnea on exertion GI Reports hematochezia, Denies change in bowel habits and Reports diarrhea Denies hematuria Musc Denies back pain and Denies limited range of motion Neuro Denies focal weakness and Denies convulsions Psych Denies depression and Denies mood swings Physical Exam Vital Signs: BMI result Body Mass Index 21.8 Const General: comfortable and no acute distress Orientation/consciousness: patient oriented x3 Neck Neck: Yes no lymphadenopathy Resp Auscultation: clear to auscultation bilaterally Cardio Rhythm: regular rhythm GI Other: Rectal exam shows some irritation of the perianal skin, some external hemorrhoids on the right Palpation (GI): Soft to palpation, nontender and no guarding Neuro General: patient oriented x3 Office Procedures Anoscopy She was in itzel-knife position. The anoscope was gently inserted. A full examination of the anal canal was done. She did have mixed external and internal hemorrhoids mostly in the right side. There was no active bleeding. There was no fissure or ulceration. There was no induration. There is no lesion or any mass. [id number] Assessment & Plan Assessment & Plan (1) Rectal bleed: Code(s): K62.5 - Hemorrhage of anus and rectum Category: Medical Plan: She does have prominent internal and external hemorrhoids. Her description of her bleeding seems to point an outlet source with the hemorrhoids. However, I did tell her that we can not guarantee that her bleeding is not from a proximal source especially with her history of radiation. She did have a colonoscopy in 2021 and biopsies of the left colon at that time did not reveal radiation changes I had a long discussion with her about the option of proceeding with hemorrhoidectomy. I explained the technique of this procedure. I reviewed the risks including but not limited to bleeding, infections, postop pain, as well as the benefits and alternatives. I explained to her what to expect postoperatively. I did explain to her that there is no guarantee that her bleeding is solely from her hemorrhoids especially with her history of radiation. I did suggest to her to discuss this with Dr. Mejia to see if she may benefit from repeating her colonoscopy in view of the heavier bleeding that she has the past few months. She will reach out to me again after she discusses this with Dr. Mejia. Coding Level of Care Code Est Pt Level 3 (33696) Diagnoses Rectal bleed K62.5 CPT Codes Details - CPT: 32078-[id number] ([id number])
== END 2023-09-13 15:47 | disposition home or self-care (01) ==
PROVIDERS: PCP Physician Assistant Surgical; Visit Provider Surgery
DX: K62.5 Hemorrhage of anus and rectum (principal)
CPT/HCPCS: 46600; 99213

== ENCOUNTER → 2023-09-13 15:05 | Outpatient (BNVA) | payer OTHER, SELFPAY | PROVIDERS: PCP Physician Assistant Surgical; Visit Provider Surgery | DX: K62.5 Hemorrhage of anus and rectum (principal); K64.8 Other hemorrhoids; K64.4 Residual hemorrhoidal skin tags | CPT/HCPCS: 46600 ==

== ENCOUNTER 2023-11-17 11:25 | Emergency (ER) | payer OTHER, SELFPAY ==
--- NOTE | ~2023-11-17 | XR_ITS ---
EXAMINATION: XR CHEST CLINICAL INFORMATION: Cough. Wheezing. COMPARISON: Chest radiograph from 01/24/2022. TECHNIQUE: 2 views of the chest were obtained (PA and lateral). FINDINGS: The lungs are well expanded. No evidence of focal consolidation, pleural effusion, pulmonary edema, or pneumothorax. The cardiomediastinal silhouette is within normal limits. No acute osseous abnormalities. Minimal right convex curvature of the thoracic spine. Prior cholecystectomy. XR/XR chest 2V IMPRESSION: No radiographically evident acute pulmonary abnormalities. Electronically signed by: Perfecto Shah DO 11/17/2023 02:40 PM EDT
[2023-11-17 11:27] VITALS: BP 141/72; PULSE 91; RESP 16; TEMP 36.1; O2SAT 96; BMI 21.3
--- NOTE | 2023-11-17 11:34 | ED_ITS ---
HPI - URI/Sore Throat General Chief Complaint: Ear Problems Stated Complaint: R ear pain/Sore throat/Cough Time Seen by Provider: 11/17/23 12:27 Source: patient Mode of arrival: ambulatory Limitations: no limitations History of Present Illness ED Provider: BLANK CHANG PA-C HPI Narrative: 47 year old female with pmhx significant for anxiety, colitis, SBO presents to the ED today for evaluation of right ear pain and sore throat x2 days. Patient reports choking on a piece of steak 2 days ago in which her daughter had to perform the Heimlich. Since this time reports sore throat and ear pain, worse on waking this morning. Also reports dry cough which began today. Reports 25 pack year history. Admits to hx of asthma however has not needed inhaler/ nebs in years. Denies fevers, chills, chest pain, n/v. Related Data Home Medications ?Medication ?Instructions ?Recorded ?Confirmed clonazepam 0.5 mg tablet 0.5 mg PO TID 09/09/20 11/01/21 norgestimate 0.25 mg-ethinyl 1 tab PO DAILY 09/09/20 11/01/21 estradiol 35 mcg tablet (Estarylla) zolpidem 12.5 mg tablet,extended 1 tab PO BEDTIME PRN Sleep 09/09/20 11/01/21 release,multiphase dicyclomine 20 mg tablet 20 mg PO QID 04/06/21 11/01/21 omeprazole 40 mg capsule,delayed 1 cap PO QAM 04/23/21 11/01/21 release ondansetron 4 mg disintegrating 1 tab PO DAILY 04/23/21 11/01/21 tablet duloxetine 20 mg capsule,delayed 20 mg PO BID 05/13/21 11/01/21 release nortriptyline 10 mg capsule 0 mg PO 11/01/21 11/01/21 Previous Rx's ?Medication ?Instructions ?Recorded oxycodone 5 mg tablet 1 tab PO TID PRN Pain (Scale Score 05/06/21 7-10) #10 tabs prednisone 10 mg tablet 10 mg PO DAILY #5 tabs 05/06/21 simethicone 80 mg chewable tablet 80 mg PO QIDWMHS PRN gas pains #30 05/06/21 (Gas Relief (simethicone)) tabs cefuroxime axetil 250 mg tablet 250 mg PO Q12H 7 days #14 tabs 08/04/21 ketorolac 10 mg tablet 10 mg PO TID PRN pain 5 days #14 08/04/21 tabs diphenoxylate-atropine 2.5 1 tab PO QID PRN diarrhea #30 tabs 12/13/21 mg-0.025 mg tablet (Lomotil) albuterol sulfate 2.5 mg/0.5 mL 5 mg inhalation Q4H PRN shortness 01/24/22 solution for nebulization of breath or wheezing #30 ea albuterol sulfate 90 mcg/actuation 2 puff inhalation Q4-6H PRN 01/24/22 aerosol inhaler shortness of breath or wheezing #6.7 grams benzonatate 100 mg capsule 100 mg PO TID PRN cough #14 caps 01/24/22 fluticasone propionate 50 2 spray intranasal DAILY #16 grams 01/24/22 mcg/actuation nasal spray,suspension (Flonase Allergy Relief) prednisone 20 mg tablet 40 mg (2 x 20 mg) PO DAILY 5 days 01/24/22 #10 tabs ketorolac 10 mg tablet 10 mg PO Q6H PRN pain 5 days #20 03/04/22 tabs amoxicillin 875 mg-potassium 1 tab PO BID 7 days #14 tabs 09/10/22 clavulanate 125 mg tablet fluconazole 150 mg tablet 150 mg PO Q3D 2 doses #2 tabs 09/10/22 ketorolac 10 mg tablet 10 mg PO QID PRN pain 5 days #20 08/11/23 tabs prednisone 20 mg tablet 40 mg (2 x 20 mg) PO DAILY 5 days 08/11/23 #10 tabs albuterol sulfate 2.5 mg/0.5 mL 5 mg inhalation Q6H PRN shortness 11/17/23 solution for nebulization of breath or wheezing #30 ea albuterol sulfate 90 mcg/actuation 2 inh inhalation Q20M PRN 11/17/23 breath activated powder inhaler shortness of breath or wheezing #1 ea amoxicillin 875 mg-potassium 1 tab PO BID 7 days #14 tabs 11/17/23 clavulanate 125 mg tablet benzonatate 100 mg capsule 100 mg PO BID PRN cough #20 caps 11/17/23 prednisone 20 mg tablet 40 mg (2 x 20 mg) PO DAILY 4 days 11/17/23 #8 tabs Allergies Allergy/AdvReac Type Severity Reaction Status Date / Time guaifenesin [GUAIFENESIN] Allergy Intermediate HIVES Verified 11/17/23 11:37 metaproterenol [From Alupent] Allergy Mild PALPITATIONS, Verified 11/17/23 11:37 RASH Review of Systems Review of Systems: Yes all other systems are reviewed and are negative [facility] Past Medical History Attestation statement: The following information was validated with the patient. Source: old records reviewed and nursing notes reviewed Medical History Rectal bleed Diarrhea Incisional hernia Small bowel obstruction COVID-19 Anxiety Colitis Colitis Cholecystectomy planned Cervical cancer Radiation cystitis Surgical History History of exploratory laparotomy Hx of elbow surgery Tubal ligation status Family History Family History Other No family history of coronary artery disease Social History Social History Household Members: Spouse and Family Housing: House Do you presently have visiting nurse or other home services: No Alcohol intake: never Patient Tobacco Use Status: Current everyday Tobacco user Tobacco use type: Cigarette Cigarettes Per Day: 2 Years Smoked: 25 Second Hand Smoke Exposure: No Substance Use Type: Other Advance Directives: Yes Advance Directives on File: Yes Advance Directives Date on File: 03/17/21 Do you have a plan to hurt others: No Plan service: No Current occupational status: employed Physical Exam Vital Signs: Vital Signs: Last Vital Signs Temp 97.9 F 11/17/23 15:17 Pulse 70 11/17/23 15:17 Resp 18 11/17/23 15:17 BP 150/93 H 11/17/23 15:17 Pulse Ox 98 11/17/23 15:17 O2 Del Method Room Air 11/17/23 15:17 BMI result Body Mass Index 21.3 Patient hypertensive, not hypoxic. Afebrile. General: Well appearing, in no acute distress. Skin: Warm, dry, intact. No rashes or lesions. Head: Normocephalic, atraumatic. EENT: Hearing is intact b/l. Conjunctiva clear. PERRLA. Moist mucous membranes.?Posterior oropharynx mildly erythematous, no edema. No tonsillar exudates. No peritonsillar masses. Uvula midline. Controlling secretions and speaking complete sentences. Right EAC w/o erythema, noted cerumen impaction, unable to visualize TM. no pain on manipulation of pinna. Neck: Supple without LAD Cardiac: Chest wall symmetric. RRR. Lungs: Normal respiratory effort without accessory muscle use. Mild expiratory wheezes throughout. Back: No midline spinous or paraspinal tenderness. No step off deformity. Ext: Upper and lower extremities atraumatic, without tenderness, deformity, swelling or erythema. Full ROM throughout. Neuro: AOx3. Normal speech. Ambulating with steady gait. Psych: Appropriate mood and affect. Responds appropriately to questions. Course Course Course Narrative: This is an RME performed by Lucio Vázquez, [employer] SPECIALIST: Additional HPI, ROS, PE not included below will be deferred to primary provider. Patient is a 47-year-old female who presents emergency department evaluation. Reports 2 nights ago she began experiencing right-sided ear pain. She accidentally choked on a piece of steak reporting that she had to have the Heimlich performed with relief but now was experiencing right-sided throat pain for the past 2 nights. Exam: Pharynx mildly erythematous, right external ear canal with copious cerumen, unable to visualize the TM, Reevaluation(s) Reevaluation #1: 1350 -- covid/rsv/flu/strep negative. patient reciving albuterol and solumedrol. cxr pending. > colace soaking in R ear. plan for cerumen disimpaction. 1510 -- Attempted cerumen removal with saline irrigation s/p Colace soak. Able to partially remove cerumen. I can visualize approximately half of patient's TM which appears erythematous and bulging. It appears that cerumen is adhered to the other side of the TM. Attempted to manually remove however patient endorsed pain. Chose to discontinue disimpaction to prevent damage to the TM. Will treat patient for right otitis media and provide referral to ENT. Chest x-ray without infiltrate or consolidation. No noted effusion. > on re-evaluation, patient reports improvement in symptoms following albuterol and Solu-Medrol treatment. Lungs are now clear to auscultation bilaterally. Continues to cough. Will send her home with prednisone, albuterol and Tessalon Perles. > Patient has remained stable throughout ED visit today. Discussed worrisome signs and symptoms and when to return to the ED. All questions answered at this time. Patient is agreeable with disposition and stable for discharge. Medications Administered Discontinued Medications Generic Name Dose Route Start Last Admin Trade Name Crystal PRN Reason Stop Dose Admin Albuterol/Ipratropium 3 ml 11/17/23 13:12 11/17/23 13:15 Albuterol/Iprat 2.5/0.5mg 3 Ml Ampul.Neb INHALE 11/17/23 13:13 3 ml ONCE ONE Administration Docusate Sodium 200 mg 11/17/23 12:55 11/17/23 13:14 Docusate Sodium 100 Mg/10 Ml Liquid PO 11/17/23 12:56 200 mg ONCE ONE Administration Methylprednisolone Sodium Succinate 60 mg 11/17/23 12:56 11/17/23 13:14 Methylprednisolone Sod Succ 125 Mg/2 Ml Vial IM 11/17/23 12:57 60 mg ONCE ONE Administration Medical Decision Making Medical Decision Making [facility] Narrative: 47 year old female with pmhx significant for anxiety, colitis, SBO presents to the ED today for evaluation of right ear pain and sore throat x2 days. Hypertensive, not hypoxic, afebrile. she is nontoxic appearing and in NAD. On exam, Moist mucous membranes.?Posterior oropharynx mildly erythematous, no edema. No tonsillar exudates. No peritonsillar masses. Uvula midline. Controlling secretions and speaking complete sentences. Right EAC w/o erythema, noted cerumen impaction, unable to visualize TM. no pain on manipulation of pinna. lungs w/ mild expiratory wheezes throughout. Differential diagnosis includes cerumen impaction, otitis externa, otitis media, strep throat, viral syndrome, pneumonia, bronchitis, asthma exacerbation. Unlikely [employer], retropharyngeal abscess, epiglottitis. Plan for viral/ strep swabs, chest xr, breathing treatment, Solu-Medrol, re- evaluation. Differential Diagnosis Differential Diagnoses: The differential diagnosis associated with the presentation includes as above. Admission/Observation not indicated Lab Data [facility] Lab Attestation statement: I reviewed the patient's lab results. as above. Labs: Lab Results 11/17/23 Range/Units 11:46 Influenza Type A (PCR) NEGATIVE (Negative) Influenza Type B (PCR) NEGATIVE (Negative) RSV RNA Qual (PCR) NEGATIVE (Negative) SARS-CoV-2 RNA (RT-PCR) NEGATIVE (Negative) S. pyogenes GrpA LINDA Negative (Negative) Independent Interpretation I performed an independent interpretation of an: Plain X-Ray Interpretation: CXR without consolidation or infiltrate, agree with radiologist's interpretation. Radiology Impression Discussion of test interpretation with radiology: I have reviewed the radiologist's reading. Radiologist Impression: EXAMINATION: XR CHEST CLINICAL INFORMATION: Cough. Wheezing. COMPARISON: Chest radiograph from 01/24/2022. TECHNIQUE: 2 views of the chest were obtained (PA and lateral). FINDINGS: The lungs are well expanded. No evidence of focal consolidation, pleural effusion, pulmonary edema, or pneumothorax. The cardiomediastinal silhouette is within normal limits. No acute osseous abnormalities. Minimal right convex curvature of the thoracic spine. Prior cholecystectomy. XR/XR chest 2V IMPRESSION: No radiographically evident acute pulmonary abnormalities. Electronically signed by: Perfecto Shah DO 11/17/2023 02:40 PM EDT RP External Record Review External record reviewed: Inpatient record Prescription Management I considered prescription management with: Antibiotic (augmentin) and Other (prednisone, albuterol, tessalon) Social Determinants Patient?s care significantly limited by Social Determinants of Health including: Other Social Determinant of Health Critical Care Time Critical Care Time Critical Care Time: No Discharge Plan Discharge Clinical Impression: Acute right otitis media, Bronchitis Patient Disposition: Home, Self-Care Instructions: Ear Infection (ED), Acute Bronchitis (ED) Additional Instructions: You tested negative for covid/flu/rsv/strep throat. Your chest xray is normal. Prednisone is a steroid that has been sent to your pharmacy for treatment. You received a dose of this in the ED today so take your next dose tomorrow. Tessalon Perles have been sent to your pharmacy for you to take as needed for cough. Augmentin is an antibiotic that has been sent to your pharmacy for suspected right ear infection. Take as prescribed for the next 7 days. You have also been provided a referral to an ENT. Please call them to schedule an appointment. They will not call you. Return with new or worsening symptoms. In the case of an emergency call 911. Prescriptions: New albuterol sulfate 90 mcg/actuation aerosol powdr breath activated 2 inh inhalation Q20M PRN (Reason: shortness of breath or wheezing) Qty: 1 0RF albuterol sulfate 2.5 mg/0.5 mL solution for nebulization 5 mg inhalation Q6H PRN (Reason: shortness of breath or wheezing) Qty: 30 0RF prednisone 20 mg tablet 40 mg PO DAILY 4 Days Qty: 8 0RF amoxicillin-pot clavulanate 875-125 mg tablet 1 tab PO BID 7 Days Qty: 14 0RF benzonatate 100 mg capsule 100 mg PO BID PRN (Reason: cough) Qty: 20 0RF No Action diphenoxylate-atropine [Lomotil] 2.5-0.025 mg tablet 1 tab PO QID PRN (Reason: diarrhea) Qty: 30 0RF norgestimate-ethinyl estradiol [Estarylla] 0.25-35 mg-mcg tablet 1 tab PO DAILY clonazepam 0.5 mg tablet 0.5 mg PO TID zolpidem 12.5 mg tablet,ext release multiphase 1 tab PO BEDTIME PRN (Reason: Sleep) cefuroxime axetil 250 mg tablet 250 mg PO Q12H 7 Days Qty: 14 0RF ketorolac 10 mg tablet 10 mg PO TID PRN (Reason: pain) 5 Days Qty: 14 0RF Rx Instructions: Patient monitored and observed in the emergency department after receiving ketorolac IM, and tolerated well, no complications, no reaction. prednisone 20 mg tablet 40 mg PO DAILY 5 Days Qty: 10 0RF benzonatate 100 mg capsule 100 mg PO TID PRN (Reason: cough) Qty: 14 0RF albuterol sulfate 90 mcg/actuation HFA aerosol inhaler 2 puff inhalation Q4-6H PRN (Reason: shortness of breath or wheezing) Qty: 6.7 0RF fluticasone propionate [Flonase Allergy Relief] 50 mcg/actuation spray,suspension 2 spray intranasal DAILY Qty: 16 0RF Rx Instructions: administer into each nostril albuterol sulfate 2.5 mg/0.5 mL solution for nebulization 5 mg inhalation Q4H PRN (Reason: shortness of breath or wheezing) Qty: 30 0RF dicyclomine 20 mg Tablet 20 mg PO QID omeprazole 40 mg capsule,delayed release(DR/EC) 1 cap PO QAM ondansetron 4 mg tablet,disintegrating 1 tab PO DAILY prednisone 10 mg tablet 10 mg PO DAILY Qty: 5 0RF oxycodone 5 mg tablet 1 tab PO TID PRN (Reason: Pain (Scale Score 7-10)) Qty: 10 0RF simethicone [Gas Relief (simethicone)] 80 mg Tablet,Chewable 80 mg PO QIDWMHS PRN (Reason: gas pains) Qty: 30 0RF ketorolac 10 mg tablet 10 mg PO Q6H PRN (Reason: pain) 5 Days Qty: 20 0RF Rx Instructions: Patient received Toradol in the emergency room. prednisone 20 mg tablet 40 mg PO DAILY 5 Days Qty: 10 0RF ketorolac 10 mg tablet 10 mg PO QID PRN (Reason: pain) 5 Days Qty: 20 0RF Rx Instructions: Patient received Toradol 30 mg IM in the ED. amoxicillin-pot clavulanate 875-125 mg tablet 1 tab PO BID 7 Days Qty: 14 0RF fluconazole 150 mg tablet 150 mg PO Q3D Qty: 2 0RF Rx Instructions: may repeat second dose 72 hrs after first dose if symptoms persist duloxetine 20 mg capsule,delayed release(DR/EC) 20 mg PO BID nortriptyline 10 mg capsule 0 mg PO Referrals: Patrick Alarcon [Physician] - Interventions: ED Discharge Assessment Last Done: 11/17/23 15:17 Discharge Date/Time: 11/17/23 15:19 Print Language: Citizen Of [place]
[2023-11-17 12:09] LABS: IDNOW Serial# 08D9AD1C; Strep A Nucleic Acid Negative (Negative)
[2023-11-17 12:38] LABS: Influenza A PCR NEGATIVE (Negative); Influenza B PCR NEGATIVE (Negative); Resp Syncy Virus RNA Qual PCR NEGATIVE (Negative); SARS COV2 PCR INHOUSE NEGATIVE (Negative)
[2023-11-17] MEDS: Docusate Sodium 100 MG/10 ML LIQUID 200 MG PO (13:14)
[2023-11-17] MEDS: methylPREDNISolone Sod Succ 125 MG/2 ML VIAL 60 MG IM (13:14)
[2023-11-17 13:15] VITALS: PULSE 86; RESP 16; O2SAT 99
[2023-11-17] MEDS: Albuterol/Iprat 2.5/0.5MG 3 ML AMPUL.NEB INHALE (13:15)
--- NOTE | 2023-11-17 13:18 | PC.NURSE ---
pt medicated for rt ear pain,rt at bedside for updraft.
[2023-11-17 15:17] VITALS: BP 150/93; PULSE 70; RESP 18; TEMP 36.6; O2SAT 98
== END 2023-11-17 15:19 | disposition home or self-care (01) ==
PROVIDERS: Nurse Practitioner Family; Emergency Provider Emergency Medicine; PCP Physician Assistant Surgical
DX: H66.91 Otitis media, unspecified, right ear (principal); J40 Bronchitis, not specified as acute or chronic; J02.9 Acute pharyngitis, unspecified; R05.9 Cough, unspecified; F17.210 Nicotine dependence, cigarettes, uncomplicated; Z03.818 Encounter for observation for suspected exposure to other biological agents ruled out
CPT/HCPCS: 0241U; 71046; 87651; 94640; 96372; 99283; 99284; J2919

== ENCOUNTER 2024-01-16 13:19 | Outpatient (REF) | payer OTHER, SELFPAY ==
[2024-01-16 14:44] LABS: Leukocytes Stool Qualitative NEGATIVE (NEGATIVE)
[2024-01-16 15:26] LABS: CDiff Gene PCR POSITIVE (Negative)
[2024-01-16 16:09] LABS: Adenovirus F 40/41 Not Detected (Not Detect.); Astrovirus Not Detected (Not Detect.); Campylobacter Not Detected (Not Detect.); Cryptosporidium Not Detected (Not Detect.); Cyclospora cayetanensis Not Detected (Not Detect.); E. coli EAEC Not Detected (Not Detect.); E. coli EPEC Not Detected (Not Detect.); E. coli ETEC Not Detected (Not Detect.); E. coli STEC Not Detected (Not Detect.); Entamoeba histolytica Not Detected (Not Detect.); Giardia lamblia Not Detected (Not Detect.); Norovirus GI/GII Not Detected (Not Detect.); Plesiomonas shigelloides Not Detected (Not Detect.); Rotavirus A Not Detected (Not Detect.); Salmonella Not Detected (Not Detect.); Sapovirus Not Detected (Not Detect.); Shigella sp./EIEC Not Detected (Not Detect.); Vibrio Not Detected (Not Detect.); Vibrio Cholerae Not Detected (Not Detect.); Yersinia enterocolitica Not Detected (Not Detect.)
[2024-01-16 16:52] LABS: CDIFF Internal ctrl Dots and bkg OK (V); CDiff Toxin Negative (Negative)
--- OUTSIDE RECORDS SUMMARY | 2024-01-17 21:35 | XMS_ITS ---
Author Organization [facility] Address [address] [place] [id number] Care Team Providers Care Farm Specialist Name Role Phone Alden NIKIHLBreana Primary Care Provider Juan Carlos Guzman Jr [phone] REASON FOR VISIT c diff MEDICATIONS Medication SIG (Take, Route, Fr equency, Duration) Notes Start Date End Date Status Vancomycin HCl 125 MG 1 capsule Orally e very 6 hrs for 10 days 01/17/2024 Active Encounters Encounter Location Date Provider Diagnosis [facility] [address] [facility] [address] [place] [phone] 01/17/2024 Juan Carlos Mejia Jr PLAN OF TREATMENT Medication Medication Name Sig Start Date Stop Date Notes Vancomycin HCl 125 MG 1 capsule Orally e very 6 hrs for 10 days 01/17/2024 Next Appt Details Provider Name:Juan Carlos lopez Jr, 06/03/2024 01:15:00 PM, [address] [facility], [address], [place], [phone],
--- OUTSIDE RECORDS SUMMARY | 2024-01-17 21:35 | XMS_ITS | Continuity of Care Document ---
Author Organization [facility] Sand[facility] Address [address] [place] [address], [address] [place] [address]- Care Team Providers Care Hydrometeorology Teacher Name Role Phone Edmundo Burnham MD Primary Care Physician Encounter [facility] EDR [id number] Date(s): 09/22/23 - 01/04/24 [facility] [address], [address] [place], [place] [address] Attending Physician: Radha Ji Admitting Physician: Radha Ji Referring Physician: Edmundo Burnham MD Encounter Type: Pre-OutPatient One Time Allergies, Adverse Reactions, Alerts Substance Criticality Severity Reaction Reaction Severity Status Mucinex body rash Active Medications Addyi 100 mg oral tablet 1 tablet = 100 mg, By Mouth, Daily at bedtime, # 30 tablet, 2 Refills, Maintenance, 11/27/23 2:26:00 PM EDT, [facility] #[id number], Partial fill upon patient request if the prescription is for a schedule II opioid drug., 160, cm, 09/22/23 11:23:00 EDT, Height, 56.5, kg, 09/22/23 11:23:00 EDT,Dry Weight Start Date: 11/27/23 Status: Ordered Quantity: 30.0 Unit: tablet Repeat number: 3 Belsomra By Mouth, Daily at bedtime, 0 Refills, Maintenance, 04/11/23 2:10:00 PM EST, Partial fill upon patient request if the prescription is for a schedule II opioid drug. Start Date: 04/11/23 Status: Ordered Repeat number: 1 cholestyramine 4 gm/9 gm oral powder for reconstitution 0 Refills, Maintenance, 12/28/22 10:12:00 AM EST, Partial fill upon patient request if the prescription is for a schedule II opioid drug. Start Date: 12/28/22 Status: Ordered Repeat number: 1 Clonazepam = 0.5 mg, By Mouth, 2 times a day, 0 Refills, Maintenance, 01/28/19 8:53:00 AM EST Start Date: 01/28/19 Status: Ordered Repeat number: 1 clonazePAM 1 mg oral tablet 0 Refills, Maintenance, 10/30/23 3:27:00 PM EDT, Partial fill upon patient request if the prescription is for a schedule II opioid drug. Start Date: 10/30/23 Status: Ordered Repeat number: 1 dicyclomine 20 mg oral tablet 1 tablet = 20 mg, By Mouth, 4 times a day, # 28 tablet, 0 Refills, Maintenance, 12/01/20 3:31:00 PMEDT, Tablet, Partial fill upon patient request if the prescription is for a schedule II opioid drug. Start Date: 12/01/20 Stop Date: 12/08/20 Status: Ordered Quantity: 28.0 Unit: tablet Repeat number: 1 Diphenoxylate 0 Refills, Maintenance, 04/11/23 2:10:00 PM EST, Partial fill upon patient request if the prescription is for a schedule II opioid drug. Start Date: 04/11/23 Status: Ordered Repeat number: 1 duloxetine 20 mg oral enteric coated capsule See Instructions, 60 mg/day, 0 Refills, Maintenance, 06/02/21 8:59:00 AM EDT, [facility] Capsule, Partial fill upon patient request if the prescription is for a schedule II opioid drug. Start Date: 06/02/21 Status: Ordered Repeat number: 1 Myrbetriq 25 mg oral tablet, extended release 1 tablet = 25 mg, By Mouth, Daily, do not crush or chew, # 30 tablet, 4 Refills, Maintenance, 04/11/23 3:41:00 PM EST, ER Tablet, [facility] #[id number], Partial fill upon patient request if the prescription is for a schedule II opioid drug., 159, cm, 02/15/23 11:55:00 EST, Height, 58.9, kg, 01/19/23 12:40:00 EST, Dry Weight Start Date: 04/11/23 Status: Ordered Quantity: 30.0 Unit: tablet Repeat number: 5 nortriptyline 10 mg oral capsule Refills 0, Maintenance, 12/28/22 10:12:00 AM EST, Partial fill upon patient request if the prescription is for a schedule II opioid drug. Start Date: 12/28/22 Status: Ordered Repeat number: 1 omeprazole 40 mg oral enteric coated capsule 1 capsule = 40 mg, By Mouth, Daily, # 30 capsule, 0 Refills, Maintenance, 06/02/21 8:58:00 AM EDT, [facility] Caps[facility], Partial fill upon patient request if the prescription is for a schedule II opioid drug. Start Date: 06/02/21 Status: Ordered Quantity: 30.0 Unit: capsule Repeat number: 1 oxyCODONE 5 mg oral tablet 5 mg, By Mouth, Every 4 hours, PRN, # 42 tablet, Refills 0, Tot. Refills 0, Maintenance, Pain , Moderate, 01/19/23 4:13:00 PM EST, Route to Pharmacy Electronically, [facility], Partial fill upon patient request if the prescription is for a schedule II opioid drug., 159, cm, 01/19/23 12:40:00 EST, Height, 58.9, kg, 01/19/23 12:40:00 EST, Dry Weight Start Date: 01/19/23 Status: Ordered Quantity: 42.0 Unit: tablet Repeat number: 1 propranolol 60 mg oral capsule, extended release 60 mg, 1, capsule, By Mouth, Daily, # 30 capsule, Refills 5, Maintenance, 01/06/23 2:53:00 PM EST, Partial fill upon patient request if the prescription is for a schedule II opioid drug. Start Date: 01/06/23 Status: Ordered Quantity: 30.0 Unit: capsule Repeat number: 1 Quetiapine By Mouth, Refills 0, Maintenance, 04/11/23 2:10:00 PM EST, Partial fill upon patient request if the prescription is for a schedule II opioid drug. Start Date: 04/11/23 Status: Ordered Repeat number: 1 tiZANidine 4 mg oral tablet 2 mg, By Mouth, 3 times a day, # 45 tablet, Refills 0, Tot. Refills 0, Maintenance, 01/19/23 4:13:00 PM EST, Route to Pharmacy Electronically, [facility], Partial fill upon patient request if the prescription is for a schedule II opioid drug., 159, cm, 01/19/23 12:40:00 EST, Height, 58.9, kg, 01/19/23 12:40:00 EST, Dry Weight Start Date: 01/19/23 Status: Ordered Quantity: 45.0 Unit: tablet Repeat number: 1 Vivelle-Dot 0.05 mg/24 hours twice weekly transdermal film, extended release See Instructions, APPLY 1 PATCH TOPICALLY EVERY MONDAY AND MONDAY, # 8 patch, 6 Refills, Maintenance, 12/05/23 9:25:00 AM EDT, [facility] #[id number], 160, cm, 09/22/23 11:23:00 EDT, Height, 56.5, kg, 09/22/23 11:23:00 EDT, Dry Weight Start Date: 12/05/23 Status: Ordered Quantity: 8.0 Unit: patch Repeat number: 1 Problem List Condition Confirmation Course Effective Dates Status Health St at[facility] Informant Anxiety Confirmed Active Cervical cancer Confirmed Active Thyroid disease Confirmed Active Eczema Confirmed Active Pelvic pressure in female Confirmed Active Heart disease Confirmed Active Heartburn Confirmed Active H/O small bowel obstruction Confirmed Active Back injury Confirmed Active Radiation cystitis Confirmed Active Menopausal symptoms Confirmed Active Migraines Confirmed Active Ulcerative colitis Confirmed Active Social History Social History Type Response Tobacco Use: 4 or less cigar ettes(less than 1/4 pack)/day in last 30 days. Sex Sex Representation Female (finding) Patient Care team information Care Team Personnel Name: Edmundo Burnham MD Position: [facility] Outreach Member Role: PCP Address: [address] [place] [address] Internal Medicine [place], [place] [address] Telecom: Name: Isamar Moreno RN Position: [facility] Onco RN Member Role: Primary Care Nurse Care Team Related Persons Name: CHRISTIAN FITCH Insurance Providers Guarantor name: RICCARDO VARGAS Health Plan Information #: 1 Payer: [facility] [employer] Member Number: [id number] Policy Number: NA Group Number: NA Health Plan Information #: 2 Payer: [facility] [employer] Member Number: [id number] Policy Number: NA Group Number: NA
--- OUTSIDE RECORDS SUMMARY | 2024-01-17 21:35 | XMS_ITS | Continuity of Care Document ---
Author Organization [facility] Address [address] [place] [address]- Care Team Providers Care Drone Software Development Engineer Name Role Phone Edmundo Burnham MD Primary Care Physician Encounter [facility] Date(s): 11/27/23 - 12/27/23 [facility] [address] [place] [id number] Attending Physician: Trina Mcghee Admitting Physician: Trina Mcghee Referring Physician: Trina Mcghee Encounter Type: Triage Allergies, Adverse Reactions, Alerts Substance Criticality Severity Reaction Reaction Severity Status Mucinex body rash Active Medications Addyi 100 mg oral tablet 1 tablet = 100 mg, By Mouth, Daily at bedtime, # 30 tablet, 2 Refills, Maintenance, 11/27/23 2:26:00 PM EDT, [facility] #[id number], Partial fill upon patient request if the [...] Maintenance, 04/11/23 3:41:00 PM EST, ER Tablet, [facility] #[id number], Partial fill upon patient request if the [...] 4:13:00 PM EST, Route to Pharmacy Electronically, [facility], Partial fill upon patient [...] 4:13:00 PM EST, Route to Pharmacy Electronically, [facility], Partial fill upon patient request if the prescription is for a schedule II opioid drug., 159, cm, 12/14/23 12:40:00 EST, Height, 58.9, kg, 01/19/23 12:40:00 EST, Dry Weight Start Date: 01/19/23 Status: Ordered Quantity: 45.0 Unit: tablet Repeat number: 1 Vivelle-Dot 0.05 mg/24 hours twice weekly transdermal film, extended release See Instructions, APPLY 1 PATCH TOPICALLY EVERY MONDAY AND MONDAY, # 8 patch, 6 Refills, Maintenance, 12/05/23 9:25:00 AM EDT, [facility] #[id number], 160, cm, 09/22/23 11:23:00 EDT, Height, 56.5, [...] 30 days. Sex Sex Representation Female (finding) Laboratory * Event Display: Non Lab Results Authored Date: Patient Care team information Care Team Personnel Name: Edmundo Burnham MD Position: [facility] Outreach Member Role: PCP Address: [address] [place] [address] Internal Medicine [address] Telecom: Name: Isamar Moreno RN Position: [facility] Onco RN Member Role: Primary Care Nurse Care Team Related Persons Name: CHRISTIAN FITCH Insurance Providers Guarantor name: KIT [facility] [employer] [facility] Information #: 1 Payer: [facility] Member Number: NA Policy Number: NA Group Number: NA
--- OUTSIDE RECORDS SUMMARY | 2024-01-17 21:36 | XMS_ITS ---
Author Organization [facility] Address [address] [place] [address] Care Team Providers Care Qa Tester Name Role Phone Breana Roberts Primary Care Provider Miryam Mejia Jr, Juan Carlos Lauren [phone] REASON FOR VISIT labs Encounters Encounter Location Date Provider Diagnosis [facility] [address] [facility] [address] [place] [id number] 08/03/2023 Juan Carlos Mejia Jr PLAN OF TREATMENT Next Appt Details Provider Name:Juan Carlos lopez Jr, 06/03/2024 01:15:00 PM, [address] [facility], [address], [place], [address],
--- OUTSIDE RECORDS SUMMARY | 2024-01-17 21:36 | XMS_ITS ---
Author Organization [facility] Address [address] [place] [address] Care Team Providers Care Classified Ad Clerk Name Role Phone Krystal BELTRÁN, Rosa Primary Care Provider Terri Guevara Unavailable [phone] Encounters Encounter Location Date Provider Diagnosis [facility] [address] [place] [address] 09/23/2022 Terri Mullen Plan Of Treatment No Information Progress Notes * Mag ALICIAdanieldelilahDOB:1975 (48 yo F)Acc No.[id number]:09/23/2022 Progress Notes Patient:?Tobi MARTE Provider:?Terri Mullen DPM :1975???Age:46 Y???Sex:Female D ate:09/23/2022 Address:[address] [place], [place] [id number] Pcp:Rosa Rice NP Subjective: * Chief Complaints: * ??? * Medical History:? Objective: * Vitals:? Assessment: Plan: * Treatment: * Images: * The named appointment provid er may or may not be the originator of this progress note, and it is not deemed complete until electronically signed by the appointment provider. Sign off status: Pending * Provider:?Terri Mullen DPM Date:? Generated for Willie patton/Marko/Graceitting on:?01/17/2024 09:36 PM EST
--- OUTSIDE RECORDS SUMMARY | 2024-01-17 21:36 | XMS_ITS | Patient Health Record ---
Author Organization [facility] Address [address] [place] [address] Care Team Providers Care Plastics Fabricator Or Welder Name Role Phone Ruano Breana TEJEDA Primary Care Provider Miryam Mejia Jr Juan Carlos Unavailable [phone] ALLERGIES Allergen (clinical drug ingredient) Drug/Non Drug Allergy documented on EMR Reaction Allergy Type Onset Date Status guaifenesin Mucinex Unknown Drug Allergy Activ e liquid alupent (uncoded) Unknown Allergy Active RESULTS Component Value Reference Range Notes GI PANEL Reviewed date:04/20/2023 11:29:07 AM Interpretation: Performing Lab:[facility], [address] [place] [phone] Notes/Report: Campylobacter Not Detected Not Detect. Plesiomonas shigelloides Not Detected Not Detect. Salmonella Not Detected Not Detect. Vibrio Not Detected Not Detect. Vibrio Cholerae Not Detected Not Detect. Yersinia enterocolitica Not Detected Not Detect. E. coli EAEC Not Detected Not Detect. E. coli EPEC Not Detected Not Detect. E. coli ETEC Not Detected Not Detect. E. coli STEC Not Detected Not Detect. E. coli O157 Not applicable Not Detect. E. coli containing the O157 antigen are a subset of Shiga-like toxin-producing E. coli (STEC). Shigella sp./EIEC Not Detected Not Detect. Cryptosporidium Not Detected Not Detect. Cyclospora cayetanensis Not Detected Not Detect. Entamoeba histolytica Not Detected Not Detect. Giardia lamblia Not Detected Not Detect. Adenovirus F 40/41 Not Detected Not Detect. Astrovirus Not Detected Not Detect. Norovirus GI/GII Not Detected Not Detect. Rotavirus A Not Detected Not Detect. Sapovirus Not Detected Not Detect. All results must be correlated with clinical findings. Negative results do not exclude the possibility of gastrointestinal infection and should not be used as the sole basis for diagnosis, treatment, or other management decisions. Virus, bacteria, and parasite nucleic acid may persist in vivo independently of organism viability. Additionally, some organisms may be carried symptomatically. Detection of organism targets does not imply that the corresponding organisms are infectious or are the causative agents for clinical symptoms. There is a risk of false negative values due to the presence of sequence variants in the gene targets of the assay, amplification inhibitors in specimens, or inadequate numbers of organisms for amplification. The identification of several diarrheagenic E. coli pathotypes has historically relied upon phenotypic characteristics. This panel targets genetic determinants characteristic of most pathogenic strains, but may not detect all strains having phenotypic characteristics of a pathotype. The performance of this test has not been established for monitoring treatment of infection with any of the panel organisms. This assay is performed by Multiplexed PCR, utilizing the [employer] Array. Complete Blood Count no Diff Reviewed date:04/20/2023 11:29:40 AM Interpretation: Performing Lab:[address] [address] Notes/Report: White Blood Count 5.2 4.8-10.8 X10*3/uL Red Blood Count 3.91 4.20-5.50 X10*6/uL Hemoglobin 12.4 12.0-16.0 g/dl Hematocrit 37.3 37.0-47.0 % Mean Corpuscular Volume 95.4 80.0-98.0 fL Mean Corpuscular Hemoglobin 31.7 27.0-33.0 pg Mean Corpuscular HGB Conc 33.2 31.0-35.0 g/dl Red Cell Distribution Width 13.7 11.0-16.0 % Platelet Count 245 160-400 X10*3/uL Mean Platelet Volume 8.8 9.4-12.3 fL NRBC Pct Auto 0.0 0.0-0.2 /100WBC NRBC Abs Auto 0.000 0.0-0.012 X10*3/uL Leukocytes Stool Qualitative Reviewed date:04/20/2023 11:28:59 AM Interpretation: Performing Lab:[address] [address] Notes/Report: Leukocytes Stool Qualitative NEGATIVE NEGATIVE Liver Panel Reviewed date:04/20/2023 11:29:29 AM Interpretation: Performing Lab:[address] [address] Notes/Report: Bilirubin Total 0.2 0.0-1.0 mg/dL Bilirubin Direct < 0.2 0.0-0.5 mg/dL Aspartate Amino Transferase 18 5-31 U/L Alanine Aminotransferase 11 0-31 U/L Total Protein 6.5 6.5-8.0 g/dL Albumin Level 3.9 3.5-5.0 g/dL Alkaline Phosphatase 59 39-117 U/L Lipase Reviewed date:04/20/2023 11:29:22 AM Interpretation: Performing Lab:[address] [address] Notes/Report: Lipase 15 8-78 U/L Thyroid Stimulating Hormone Reviewed date:04/20/2023 11:29:15 AM Interpretation: Performing Lab:[facility], [address] [place] [phone] Notes/Report: Thyroid Stimulating Hormone 0.59 0.32-4.0 uIU/mL TSH 3rd Generation ([facility]) Calprotectin, Fecal Reviewed date:04/27/2023 07:58:54 AM Interpretation: Performing Lab:[address] [address] Notes/Report: Calprotectin, Fecal 96 Reference Range: <50 Normal 50-120 Borderline >120 Elevated Calprotectin in Crohn's disease and ulcerative colitis can be five to several thousand times above the reference population (50 mcg/g or less). Levels are usually 50 mcg/g or less in healthy patients and with irritable bowel syndrome. Repeat testing in 4-6 weeks is suggested for borderline values. THIS TEST WAS PERFORMED AT: [facility] [address] [place] [address] MARIN WELLINGTON MD,PHD,VIJAY Ova and Parasite Reviewed date:04/27/2023 07:59:29 AM Interpretation: Performing Lab:[address] [address] Notes/Report: Ova and Parasite SEE NOTE OVA AND PARASITES, CONC AND PERM SMEAR Micro Number: [id number] Test Status: Final Specimen Source: Stool Specimen Quality: Adequate CONCENTRATION 1: No ova or parasites seen TRICHROME 1: No ova or parasites seen Routine Ova and Parasite exam may not detect some parasites that occasionally cause diarrheal illness. Cryptosporidium Antigen and/or Cyclospora and Isospora Exam may be ordered to detect these parasites. One negative sample does not necessarily rule out the presence of a parasitic infection. For additional information, please refer to https://[employer].SurgiQuest/faq/WSG826 (This link is being provided for informational/ educational purposes only.) THIS TEST WAS PERFORMED AT: [facility] [address] [address] GUDELIA BASILIO MD XR abdomen min 2V Reviewed date:04/24/2023 04:34:49 PM Interpretation: Performing Lab: Notes/Report: [address] [address] XRay Report Signed Patient: Riccardo Marte MR#: [id number] : 1975 Acct:[id number] Age/Sex: 47 / F ADM Date: 04/18/23 Loc: [facility] Attending Dr: Juan Carlos Mejia MD Ordering Physician: Juan Carlos Mejia MD Date of Service: 04/18/23 Procedure(s): XR abdomen min 2V Accession Number(s): [id number] cc: Juan Carlos Mejia MD; Breana Ruano FLOOR HELPER- EXAMINATION: XR ABDOMEN COMPLETE CLINICAL INDICATION: Abdominal bloating, diarrhea unspecified COMPARISON: None available. TECHNIQUE: AP supine and upright views of the abdomen. The upright view does not include above the right hemidiaphragm precluding evaluation for free air FINDINGS: The bowel gas pattern is normal with no evidence of ileus or obstruction. Small and large bowel are normal caliber. Multiple anastomotic sutures are seen in the right lower quadrant. Surgical clips are seen in the right upper quadrant consistent with prior cholecystectomy. Bilateral fallopian tube clips are seen in the pelvis. There is multilevel degenerative changes of the lumbar spine. No unusual calcifications are seen. XR/XR abdomen min 2V IMPRESSION: Nonobstructive bowel gas pattern. Dictated By: Maria Eugenia Will MD Signed By: <Electronically signed by Maria Eugenia Will MD in OV> 04/20/23 1522 DD/ 1446 TD/TT: Retail Banking Manager: Complete Blood Count Auto Di ff Reviewed date:08/03/2023 08:24:31 AM Interpretation: Performing Lab:[facility], [address] [place] [phone] Notes/Report: White Blood Count 6.0 4.8-10.8 X10*3/uL Red Blood Count 3.92 4.20-5.50 X10*6/uL Hemoglobin 12.7 12.0-16.0 g/dl Hematocrit 37.8 37.0-47.0 % Mean Corpuscular Volume 96.4 80.0-98.0 fL Mean Corpuscular Hemoglobin 32.4 27.0-33.0 pg Mean Corpuscular HGB Conc 33.6 31.0-35.0 g/dl Red Cell Distribution Width 13.0 11.0-16.0 % Platelet Count 226 160-400 X10*3/uL Mean Platelet Volume 8.7 9.4-12.3 fL Neutrophils Percent Auto 59.4 45-73 % Imm Gran Pct Auto 0.2 0.0-0.4 % Lymphocytes Percent Auto 30.4 20-40 % Monocytes Percent Auto 7.0 2-11 % Eosinophils Percent Auto 2.5 0-4 % Basophils Percent Auto 0.5 0-2 % NRBC Pct Auto 0.0 0.0-0.2 /100WBC Neutrophils Absolute Auto 3.5 2.0-8.3 x10*3/u L Imm Gran Abs Auto 0.01 0.00-0.03 X10*3/uL Lymphocytes Absolute Auto 1.8 1.2-4.9 X10*3/u L Monocytes Absolute Auto 0.4 0.1-1.2 X10*3/uL Eosinophils Absolute Auto 0.2 0.0-0.4 X10*3/u L Basophils Absolute Auto 0.0 0.0-0.2 X10*3/uL NRBC Abs Auto 0.000 0.0-0.012 X10*3/uL IRON PROFILE Reviewed date:08/03/2023 08:24:25 AM Interpretation: Performing Lab:[facility], [address] [place] [phone] Notes/Report: Iron 84 30-160 mcg/dL Total Iron Binding Capacity 344 228-428 mcg/dL Percent Iron Saturation 24 15-50 % Unsaturated Iron Binding 260 Ferritin Reviewed date:08/03/2023 08:22:42 AM Interpretation: Performing Lab:[facility], [address] [place] [phone] Notes/Report: Ferritin 64 10-250 ng/mL Vitamin B12 Reviewed date:08/03/2023 08:22:54 AM Interpretation: Performing Lab:[facility], [address] [place] [phone] Notes/Report: Vitamin B12 451 200-900 pg/mL NORMAL 200-900 PG/ML INDETERMINATE 160-199 PG/ML DEFICIENT < 160 PG/ML GI PANEL Reviewed date:01/17/2024 07:37:11 AM Interpretation: Performing Lab:[facility], [address] [place] [phone] Notes/Report: Campylobacter Not Detected Not Detect. Plesiomonas shigelloides Not Detected Not Detect. Salmonella Not Detected Not Detect. Vibrio Not Detected Not Detect. Vibrio Cholerae Not Detected Not Detect. Yersinia enterocolitica Not Detected Not Detect. E. coli EAEC Not Detected Not Detect. E. coli EPEC Not Detected Not Detect. E. coli ETEC Not Detected Not Detect. E. coli STEC Not Detected Not Detect. E. coli O157 Not applicable Not Detect. E. coli containing the O157 antigen are a subset of Shiga-like toxin-producing E. coli (STEC). Shigella sp./EIEC Not Detected Not Detect. Cryptosporidium Not Detected Not Detect. Cyclospora cayetanensis Not Detected Not Detect. Entamoeba histolytica Not Detected Not Detect. Giardia lamblia Not Detected Not Detect. Adenovirus F 40/41 Not Detected Not Detect. Astrovirus Not Detected Not Detect. Norovirus GI/GII Not Detected Not Detect. Rotavirus A Not Detected Not Detect. Sapovirus Not Detected Not Detect. All results must be correlated with clinical findings. Negative results do not exclude the possibility of gastrointestinal infection and should not be used as the sole basis for diagnosis, treatment, or other management decisions. Virus, bacteria, and parasite nucleic acid may persist in vivo independently of organism viability. Additionally, some organisms may be carried asymptomatically. Detection of organism targets does not imply that the corresponding organisms are infectious or are the causative agents for clinical symptoms. There is a risk of false negative values due to the presence of sequence variants in the gene targets of the assay, amplification inhibitors in specimens, or inadequate numbers of organisms for amplification. The identification of several diarrheagenic E. coli pathotypes has historically relied upon phenotypic characteristics. This panel targets genetic determinants characteristic of most pathogenic strains, but may not detect all strains having phenotypic characteristics of a pathotype. The performance of this test has not been established for monitoring treatment of infection with any of the panel organisms. This assay is performed by Multiplexed PCR, utilizing the [employer] Array. Leukocytes Stool Qualitative Reviewed date:01/17/2024 07:36:45 AM Interpretation: Performing Lab:[facility], [address] [place] [phone] Notes/Report: Leukocytes Stool Qualitative NEGATIVE NEGATIVE CDiff Gene PCR Reviewed date:01/17/2024 07:36:27 AM Interpretation: Performing Lab:[facility], [address] [place] [phone] Notes/Report: CDiff Gene PCR POSITIVE Negative Additional C. difficile toxin testing to be performed. Additional C. difficile toxin testing to be performed. CDiff Gene PCR POSITIVE Negative Additional C. difficile toxin testing to be performed. Additional C. difficile toxin testing to be performed. CDiff Toxin Reviewed date:01/17/2024 07:36:35 AM Interpretation: Performing Lab:[address] [address] Notes/Report: CDiff Toxin Negative Negative CDIFF Interpretation SEE NOTE Likely C. difficile colonization. Continue contact precautions. REASON FOR REFERRAL No Information MEDICATIONS Medication SIG (Take, Route, Frequency, Duration) Notes Start Date End Date Status Lomotil 2.5-0.025 MG 1 tablet as needed Orally Four times a day 01/12/2024 Active clonazePAM 0.5 MG 1 tablet at bedtime Orally Once a day Active oxyCODONE HCl 5 MG/5ML 5 ml as needed Or ally every 6 hrs Active Nortriptyline HCl 10 MG TAKE 2 CAPSULES BY MOUTH EVERY NIGHT AT BEDTIME Oral for 30 Active DULoxetine HCl 60 MG 1 capsule Orally On ce a day Active Diphenoxylate-Atropine 2.5-0.025 MG 1 tablet as needed Orally Four times a day for 30 days 10/24/2022 Not-Taking Propranolol HCl 60 MG 1 tablet Orally th ree times a day Active Myrbetriq 25 MG TAKE 1 TABLET BY JEFFERY TH DAILY. DO NOT CRUSH OR CHEW Oral for 30 Active Vancomycin HCl 125 MG 1 capsule Orally e very 6 hrs for 10 days 01/17/2024 Active Cholestyramine 4 GM/DOSE 1 scoop Orally Once a day for 30 days 11/24/2022 Active IMMUNIZATIONS Vaccine Route Administration Date Status Comme nts Influenza Unknown 04/19/2021 Refused Influenza Unknown 06/05/2023 Refused SOCIAL HISTORY Tobacco Use: Social History Observation Description Date Details (start date - stop date) Current Smoker NA - NA Sex Assigned At : Social History Observation Description Sex Assigned At Unknown Tobacco Use/Smoking Question Answer Notes Patient is a current smoker How many cigarettes a day do you smoke? 5 or les s How soon after you wake up do you smoke your fir st cigarette? 31-60 minutes Alcohol Screen Question Answer Notes Did you have a drink containing alcohol in the p ast year? 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 77854830 VITAL SIGNS Temperature 97.8 degrees Fahrenheit 06/05/2023 Blood pressure diastolic 00 mm Hg 06/05/2023 Height 63 in 06/05/2023 Blood pressure systolic 000 mm Hg 06/05/2023 Weight 133 lb 6 oz lbs 06/05/2023 BMI 23.62 kg/m2 06/05/2023 Encounters Encounter Location Date Provider Diagnosis [facility] [address] [facility] [address] [place] [phone] 05/29/2023 Juan Carlos Mejia Jr [facility] [address] [place] [phone] 06/05/2023 Juan Carlos Mejia Jr Radiation enteritis K52.0 and Abdominal bloating R14.0 [facility] [address] [place] [phone] 04/14/2023 Juan Carlos Mejai Jr Abdominal bloating R14.0 and Diarrhea, unspecified type R19.7 Test [place] [address] 04/24/2023 Juan Carlos Mejia Jr [facility] [address] [place] [phone] 06/05/2023 Juan Carlos Mejia Jr [facility] [address] [place] [phone] 08/03/2023 Juan Carlos Mejia Jr [facility] [address] [place] [phone] 01/12/2024 Juan Carlos Mejia Jr Diarrhea, unspecified type R19.7 [facility] [address] [place] [phone] 01/17/2024 Juan Carlos Mejia Jr ASSESSMENTS Encounter Date Diagnosis Assessment Notes Treatment Notes Treatment Clinical Notes 06/05/2023 Abdominal bloating (ICD-10 - R14.0) 06/05/2023 Radiation enteritis (ICD-10 - K52.0) Dietary Tech referral. Radiation enteritis. Evaluate and treat. 04/14/2023 Abdominal bloating (ICD-10 - R14.0) 04/14/2023 Diarrhea, unspecified type (ICD-10 - R19.7) 01/12/2024 Diarrhea, unspecified type (ICD-10 - R19.7) PLAN OF TREATMENT Pending Test Test Name Order Date LIVER PROFILE 04/14/2023 LIVER PROFILE 04/19/2021 LIPASE 04/14/2023 LIPASE 04/19/2021 TSH (THYROID STIMULATING HORMONE) 2023 IRON + IBC (FE) 11/24/2022 IRON + IBC (FE) 06/05/2023 IRON + IBC (FE) 06/01/2022 FERRITIN 06/01/2022 FERRITIN 11/24/2022 FERRITIN 06/05/2023 CRP 04/19/2021 B12 06/01/2022 B12 11/24/2022 B12 07/21/2022 B12 06/05/2023 FOLATE 06/01/2022 FOLATE 11/24/2022 CBC w/o DIFF 05/26/2022 CBC w/o DIFF 06/05/2023 CBC w/o DIFF 06/01/2022 CBC w/o DIFF 04/14/2023 CBC w/o DIFF 04/19/2021 CBC w/o DIFF 11/24/2022 CBC w/o DIFF 07/21/2022 SED RATE (ESR) 04/19/2021 STOOL WBC 01/12/2024 STOOL WBC 04/25/2022 STOOL WBC 04/14/2023 IgA 05/26/2022 TRANSGLUTAMINASE AB IGA 05/26/2022 GIARDIA AG, STOOL EIA 04/21/2021 OVA & PARASITES (O&P) 04/14/2023 OVA & PARASITES (O&P) 04/21/2021 OVA & PARASITES (O&P) 01/12/2024 OVA & PARASITES (O&P) 04/25/2022 STOOL CULTURE FOR YERSINIA 04/21/2021 STOOL CULTURE VIBRIO 04/21/2021 TSH REFLEX FREE T4 05/26/2022 C DIFFICILE RFLX PCR 01/12/2024 CALPROTECTIN, STOOL 04/14/2023 CALPROTECTIN, STOOL 04/25/2022 CDiff with Reflex to PCR 04/21/2021 XR abdomen 3V 04/14/2023 Stool Culture 04/21/2021 GI PANEL 04/25/2022 Next Appt Details Provider Name:Juan Carlos lopez , 06/03/2024 01:15:00 PM, [address] [place] [address], [address], [place], [address], Insurance Providers Payer Name Payer Address Payer Phone Subscriber Number Group Number Insured Name Patient Relationship to Insured Coverage Start Date Coverage End Date [employer] [address] [place] [phone] [id number] RICCARDO MARTE Self - patient is the insured MEDICAID OF [facility] [address] [place] [phone] [id number] RICCARDO MARTE Self - patient is the insured MEDICAL (GENERAL) HISTORY Medical History History ICD Code cervical cancer status post chemotherapy / radiation therapy Anxiety Radiation colitis/enteritis, 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 Biopsies from 09/26 colonoscopy: nonspecific colitis. Previous treatment with mesalamine and steroids because of possible IBD prior to her diagnosis of radiation enteritis/colitis 04/27 Surgical History Surgery Date(Month/Year) cervical cancer 2019 Cholecystectomy Tendinitis, right arm Ileocolonic resection second kavon to small bowel obstruction/radiation enteritis 04/27 back surgery 01/19/23 Hospitalization History Reason Date(Month/Year) Hospitalization with small b owel obstruction. Ileocolonic resection, pathology consistent with radiation therapy, not inflammatory bowel disease. 04/27
--- OUTSIDE RECORDS SUMMARY | 2024-01-17 21:36 | XMS_ITS | Patient Health Record ---
[facility] Address [address] [place] [address] Care Team Providers Care Relaster Name Role Phone Rosa Rice NP Primary Care Provider Terri Guevara Unavailable [phone] Reason For Referral No Information Plan Of Treatment No Information
--- OUTSIDE RECORDS SUMMARY | 2024-01-17 21:36 | XMS_ITS ---
Author Organization [facility] Address [address] [place] [address] Care Team Providers Care Experimental Electronics Developer Name Role Phone Krystal BELTRÁN, Rosa Primary Care Provider Terri Guevara Unavailable [phone] REASON FOR VISIT PROFESSIONAL NURSING ASSISTANT CX Encounters Encounter Location Date Provider Diagnosis [facility] [address] [place] [address] 09/12/2022 Terri Mullen Plan Of Treatment No Information Progress Notes * Tobi MARTEDOB:1975 (46 yo F)Acc No.[id number]:09/12/2022 Patient:?Marte, Magpatrice :1975???Age:46 Y???Sex:Female Address:[address] [place] [address], [address] * true * Date:? Generated for Kayyi pooja/Marko/eTransmitting on:?01/17/2024 09:36 PM EST
--- OUTSIDE RECORDS SUMMARY | 2024-01-17 21:36 | XMS_ITS ---
Author Organization [facility] Address [address] [place] [address] Care Team Providers Care Clinical Molecular Geneticist Name Role Phone Alden NIKHILBreana Primary Care Provider Miryam Mejia Jr Juan Carlos Unavailable RESULTS Component Value Reference Range Notes GI PANEL Reviewed date:01/17/2024 07:37:11 AM Interpretation: Performing Lab:[facility], [address] [place] [phone] Notes/Report: Campylobacter Not Detected Not Detect. Plesiomonas [...] is performed by Multiplexed PCR, utilizing the [employer] Array. REASON FOR VISIT watery diarrhea one week MEDICATIONS Medication SIG (Take, Route, Fr equency, Duration) Notes Start Date End Date Status Lomotil 2.5-0.025 MG 1 tablet as needed Orally Four times a day 01/12/2024 Active Encounters Encounter Location Date Provider Diagnosis [facility] [address] [place] [address] 01/12/2024 Juan Carlos Mejia Jr Diarrhea, unspecified type R19.7 ASSESSMENTS Encounter Date Diagnosis Assessment Notes Treatment Notes Treatment Clinical Notes 01/12/2024 Diarrhea, unspecified type (ICD-10 - R19.7) PLAN OF TREATMENT Medication Medication Name Sig Start Date Stop Date Notes Lomotil 2.5-0.025 MG 1 tablet as needed Orally Four times a day 01/12/2024 Pending Test Test Name Order Date STOOL WBC 01/12/2024 OVA & PARASITES (O&P) 01/12/2024 C DIFFICILE RFLX PCR 01/12/2024 Next Appt Details Provider Name:Juan Carlos lopez Jr, 06/03/2024 01:15:00 PM, [address] [facility], [address], [place], [address],
== END 2024-01-16 13:20 | disposition home or self-care (01) ==
LOC: HO.LNP 13:19
PROVIDERS: Visit Provider Internal Medicine Gastroenterology
DX: R19.7 Diarrhea, unspecified (principal)
CPT/HCPCS: 87177; 87209; 87324; 87493; 87507; 89055

== ENCOUNTER 2024-04-04 17:09 | Outpatient (REF) | payer OTHER, SELFPAY ==
[2024-04-04 18:11] LABS: CDiff Gene PCR POSITIVE (Negative)
[2024-04-04 18:57] LABS: CDIFF Internal ctrl Dots and bkg OK (V); CDiff Toxin Negative (Negative)
--- OUTSIDE RECORDS SUMMARY | 2024-04-04 19:38 | XMS_ITS ---
Author Organization [facility] Address [address] [place] [address] Care Team Providers Care Housekeeping Room Inspector Name Role Phone Alden NIKHILBreana Primary Care Provider Miryam Mejia Jr Juan Carlos Unavailable RESULTS Component Value Reference Range Notes GI PANEL Reviewed date:01/17/2024 07:37:11 AM Interpretation: Performing Lab:[facility], [address] [place] [phone] Notes/Report: Campylobacter Not Detected Not Detect. Plesiomonas [...] is performed by Multiplexed PCR, utilizing the [employer] Array. REASON FOR VISIT watery diarrhea one week MEDICATIONS Medication SIG (Take, Route, Fr equency, Duration) Notes Start Date End Date Status Lomotil 2.5-0.025 MG 1 tablet as needed Orally Four times a day 01/12/2024 Active Encounters Encounter Location Date Provider Diagnosis [facility] [address] [place] [address] 01/12/2024 Juan Carlos Mejia Jr Diarrhea, unspecified [...] Carlos lopez Jr, 06/03/2024 01:15:00 PM, [address] [facility], [address], [place], [address],
--- OUTSIDE RECORDS SUMMARY | 2024-04-04 19:38 | XMS_ITS ---
Author Organization [facility] Address [address] [place] [address] Care Team Providers Care Seed Sorter Name Role Phone Alden NIKHILBreana Primary Care Provider Miryam Mejia Jr, Juan Carlos Lauren REASON FOR VISIT c diff MEDICATIONS Medication SIG (Take, Route, Fr equency, Duration) Notes Start Date End Date Status Vancomycin HCl 125 MG 1 capsule Orally e very 6 hrs for 10 days 01/17/2024 Active Diflucan 150 MG 1 tablet Orally for 1 days 024 Active Encounters Encounter Location Date Provider Diagnosis [facility] [address] [place] [address] 01/17/2024 Juan Carlos Mejia Jr PLAN OF TREATMENT Medication Medication Name Sig Start Date Stop Date Notes Vancomycin HCl 125 MG 1 capsule Orally e very 6 hrs for 10 days 01/17/2024 Diflucan 150 MG 1 tablet Orally for 1 days 01/18/2024 Next Appt Details Provider Name:Juan Carlos lopez Jr, 06/03/2024 01:15:00 PM, [address], [address], [place], [address],
--- OUTSIDE RECORDS SUMMARY | 2024-04-04 19:38 | XMS_ITS | Continuity of Care Document ---
Author Organization [facility] Address [address] [place] [phone]- Care Team Providers Care Lpn Medical Assistant Name Role Phone Edmundo Burnham MD Primary Care Physician [phone] [place] [facility] [place] 03/29/24 [facility] [address] [place] [address]- Encounter Type: Triage Allergies, Adverse Reactions, Alerts Substance Criticality Severity Reaction Reaction Severity Status Mucinex body rash Active Medications Belsomra By Mouth, Daily at bedtime, 0 [...] Maintenance, 04/11/23 3:41:00 PM EST, ER Tablet, [id number], Partial fill upon patient request if the [...] 4:13:00 PM EST, Route to Pharmacy Electronically, [facility], Partial fill upon patient request if the prescription is for a schedule II opioid drug., 159, cm, 01/19/23 12:40:00 EST, Height, 58.9, kg, 01/19/23 12:40:00 EST, Dry Weight Start Date: 01/19/23 Status: Ordered Quantity: 42.0 Unit: tablet Repeat number: 1 Prometrium 100 mg oral capsule 1 capsule = 100 mg, By Mouth, Daily, # 30 capsule, 5 Refills, Maintenance, 02/28/24 12:09:00 PM EST,Capsule, [facility] #[id number], Partial fill upon patient request if the prescription is for a schedule II opioid drug., 160, cm, 09/22/23 11:23:00 EDT, Height, 54.7, kg, 01/01/24 11:11:00 EST,Dry Weight Start Date: 02/28/24 Status: Ordered Quantity: 30.0 Unit: capsule Repeat number: 6 propranolol 60 mg oral capsule, extended release [...] 4:13:00 PM EST, Route to Pharmacy Electronically, [facility], Partial fill upon patient request if the prescription is for a schedule II opioid drug., 159, cm, 01/19/23 12:40:00 EST, Height, 58.9, kg, 01/19/23 12:40:00 EST, Dry Weight Start Date: 01/19/23 Status: Ordered Quantity: 45.0 Unit: tablet Repeat number: 1 traZODone 100 mg oral tablet 30 each, 0 Refill(s), Refills 0, 02/06/24 3:04:00 PM EST, Partial fill upon patient request if the prescription is for a schedule II opioid drug. Start Date: 02/06/24 Status: Ordered Repeat number: 1 Vivelle-Dot 0.05 mg/24 hours twice weekly transdermal film, extended release See Instructions, APPLY 1 PATCH TOPICALLY EVERY MONDAY AND MONDAY, # 8 patch, 6 Refills, Maintenance, 12/05/23 9:25:00 AM EDT, [facility] #[id number], 160, cm, 09/22/23 11:23:00 EDT, Height, 56.5, kg, 09/22/23 11:23:00 EDT, Dry Weight Start Date: 12/05/23 Status: Ordered Quantity: 8.0 Unit: patch Repeat number: 1 Vivelle-Dot 0.075 mg/24 hours twice weekly transdermal film, extended release 1 patch, Topically, Every Monday and , # 8 patch, 3 Refills, Maintenance, 02/06/24 3:12:00 PM EST, [facility] #[id number], Partial fill upon patient request if the prescription is for a schedule II opioid drug., 160, cm, 09/22/23 11:23:00 EDT, Height, 54.7, kg, 01/01/24 11:11:00 EST, Dry Weight Start Date: 02/06/24 Status: Ordered Quantity: 8.0 Unit: patch Repeat number: 4 Problem List Condition Confirmation Course Effective Dates [...] Team Personnel Name: Edmundo Burnham MD Position: [facility] Outreach Member Role: PCP Address: [address] [place] [address] [place] [address]- [place] [employer]: Name: Josh BARBA, Isamar Position: S Onco RN Member Role: Primary Care Nurse Care Team Related Persons Name: CHRISTIAN FITCH Insurance Providers Guarantor name: [facility] Information #: 1 Payer: [id number] Member Number: NA Policy Number: NA Group Number: NA Health Plan Information #: 2 Payer: [facility] A[employer] Member Number: NA Policy Number: NA Group Number: NA
--- OUTSIDE RECORDS SUMMARY | 2024-04-04 19:38 | XMS_ITS ---
Author Organization [facility] Address [address] [place] [address] Care Team Providers Care Meter Mechanic Name Role Phone Ruano Breana TEJEDA Primary Care Provider Juan Carlos Guzman Jr REASON FOR VISIT Positive Cdiff...Please call patient MEDICATIONS Medication SIG (Take, Route, Fr equency, Duration) Notes Start Date End Date Status Vancomycin HCl 250 MG 1 capsule Orally e very 6 hrs for 14 days 01/17/2024 Active Encounters Encounter Location Date Provider Diagnosis [facility] [address] [address] 04/04/2024 Juan Carlos Mejia Jr History of Clostridioides difficile infection Z86.19 and Diarrhea R19.7 ASSESSMENTS Encounter Date Diagnosis Assessment Notes Treatment Notes Treatment Clinical Notes 04/04/2024 History of Clostridioides difficile infection (ICD-10 - Z86.19) 04/04/2024 Diarrhea (ICD-10 - R19.7) PLAN OF TREATMENT Medication Medication Name Sig Start Date Stop Date Notes Vancomycin HCl 250 MG 1 capsule Orally e very 6 hrs for 14 days 01/17/2024 Pending Test Test Name Order Date CDiff with Reflex to PCR 04/04/2024 CDiff Toxin 04/04/2024 Next Appt Details Provider Name:Juan Carlos lopez Jr, 06/03/2024 01:15:00 PM, [address], [address], [place], [address],
== END 2024-04-04 17:10 | disposition home or self-care (01) ==
LOC: HO.LNP 17:09
PROVIDERS: Visit Provider Internal Medicine
DX: R19.7 Diarrhea, unspecified (principal); Z86.19 Personal history of other infectious and parasitic diseases
CPT/HCPCS: 87324; 87493

== ENCOUNTER 2024-04-25 13:35 | Outpatient (REF) | payer OTHER, SELFPAY ==
[2024-04-25 13:57] LABS: MANUAL DIFF FLAG NO
[2024-04-25 14:07] LABS: Basophils Percent Auto 0.4 % (0-2); Eosinophils Absolute Auto 0.1 X10*3/uL (0.0-0.4); Eosinophils Percent Auto 2.8 % (0-4); Hematocrit 36.8 % (37.0-47.0); Hemoglobin 12.5 g/dl (12.0-16.0); Imm Gran Abs Auto 0.01 X10*3/uL (0.00-0.03); Imm Gran Pct Auto 0.2 % (0.0-0.4); Lymphocytes Absolute Auto 1.4 X10*3/uL (1.2-4.9); Lymphocytes Percent Auto 28.9 % (20-40); Mean Corpuscular Hemoglobin 31.3 pg (27.0-33.0); Mean Corpuscular Volume 92.2 fL (80.0-98.0); Mean Platelet Volume 8.6 fL (9.4-12.3); Monocytes Absolute Auto 0.4 X10*3/uL (0.1-1.2); Monocytes Percent Auto 7.3 % (2-11); Neutrophils Percent Auto 60.4 % (45-73); Platelet Count 201 X10*3/uL (160-400); Red Blood Count 3.99 X10*6/uL (4.20-5.50); Red Cell Distribution Width 12.7 % (11.0-16.0); White Blood Count 4.9 X10*3/uL (4.8-10.8)
[2024-04-25 14:48] LABS: Iron 157 mcg/dL (30-160); Percent Iron Saturation 52 % (15-50); Total Iron Binding Capacity 301 mcg/dL (228-428); Unsaturated Iron Binding 144 ug/dL
[2024-04-25 15:40] LABS: Ferritin 85 ng/mL (10-250); Vitamin B12 422 pg/mL (200-900)
== END 2024-04-25 13:36 | disposition home or self-care (01) ==
LOC: HO.LAB 13:35
PROVIDERS: PCP Physician Assistant Surgical; Visit Provider Internal Medicine Gastroenterology
DX: K52.0 Gastroenteritis and colitis due to radiation (principal); D64.9 Anemia, unspecified
CPT/HCPCS: 36415; 82607; 82728; 83540; 85025

== ENCOUNTER 2024-06-28 11:27 | Emergency (ER) | payer MEDICARE, MEDICAID, SELFPAY ==
--- NOTE | ~2024-06-28 | XR_ITS ---
EXAMINATION: XR CHEST CLINICAL INFORMATION: cough COMPARISON: None available. TECHNIQUE: 2 views of the chest were obtained. FINDINGS: The cardiac, hilar, and mediastinal contours are normal. Lungs appear mildly hyperaerated. There is peribronchial thickening in the right lower lobe distribution with associated mild opacity. The left lung appears clear. There is no pneumothorax or pleural effusion. There is no focal osseous or soft tissue abnormality. XR/XR chest 2V IMPRESSION: Mild peribronchial thickening with minimal associated opacity in the right lower lobe distribution. A focal bronchopneumonia is not excluded. There is no effusion. Electronically signed by: Pavel Downs MD 06/28/2024 12:08 PM EDT
[2024-06-28 11:40] VITALS: BP 126/78; PULSE 109; RESP 18; TEMP 36.9; O2SAT 99; BMI 20.8
--- NOTE | 2024-06-28 11:40 | ED_ITS ---
HPI - General Adult General Chief complaint: Upper Respiratory Symptoms Stated complaint: SOB, cough Time Seen by Provider: 06/28/24 13:31 Source: patient Mode of arrival: ambulatory Limitations: no limitations History of Present Illness ED Provider: BLANK CHANG PA-C HPI narrative: 48-year-old female with pmhx significant for anxiety, colitis, SBO s/p bowel resection presents to the ED today for evaluation of feeling generally unwell x4 days. Reports myalgias, cough productive of green sputum, shortness of breath and ribcage pain with coughing only. Reports fever, T-max of a 102?F on Monday. No fever since. Admits her uqmohb-yx-leg was ill with similar symptoms recently. No other sick contacts. Denies chest pain, palpitations, nausea, vomiting, diarrhea, abdominal pain. Denies history of asthma or COPD. Admits to tobacco use x 24 years. Currently vapes. Related Data Home Medications ?Medication ?Instructions ?Recorded ?Confirmed clonazepam 0.5 mg tablet 0.5 mg PO TID 09/09/20 11/01/21 norgestimate 0.25 mg-ethinyl 1 tab PO DAILY 09/09/20 11/01/21 estradiol 0.035 mg tablet (Estarylla) zolpidem 12.5 mg tablet,extended 1 tab PO BEDTIME PRN Sleep 09/09/20 11/01/21 release,multiphase dicyclomine 20 mg tablet 20 mg PO QID 04/06/21 11/01/21 omeprazole 40 mg capsule,delayed 1 cap PO QAM 04/23/21 11/01/21 release ondansetron 4 mg disintegrating 1 tab PO DAILY 04/23/21 11/01/21 tablet duloxetine 20 mg capsule,delayed 20 mg PO BID 05/13/21 11/01/21 release nortriptyline 10 mg capsule 0 mg PO 11/01/21 11/01/21 Previous Rx's ?Medication ?Instructions ?Recorded oxycodone 5 mg tablet 1 tab PO TID PRN Pain (Scale Score 05/06/21 7-10) #10 tabs prednisone 10 mg tablet 10 mg PO DAILY #5 tabs 05/06/21 simethicone 80 mg chewable tablet 80 mg PO QIDWMHS PRN gas pains #30 05/06/21 (Gas Relief (simethicone)) tabs cefuroxime axetil 250 mg tablet 250 mg PO Q12H 7 days #14 tabs 08/04/21 ketorolac 10 mg tablet 10 mg PO TID PRN pain 5 days #14 08/04/21 tabs diphenoxylate-atropine 2.5 1 tab PO QID PRN diarrhea #30 tabs 12/13/21 mg-0.025 mg tablet (Lomotil) albuterol sulfate 2.5 mg/0.5 mL 5 mg inhalation Q4H PRN shortness 01/24/22 solution for nebulization of breath or wheezing #30 ea albuterol sulfate 90 mcg/actuation 2 puff inhalation Q4-6H PRN 01/24/22 aerosol inhaler shortness of breath or wheezing #6.7 grams benzonatate 100 mg capsule 100 mg PO TID PRN cough #14 caps 01/24/22 fluticasone propionate 50 2 spray intranasal DAILY #16 grams 01/24/22 mcg/actuation nasal spray,suspension (Flonase Allergy Relief) prednisone 20 mg tablet 40 mg (2 x 20 mg) PO DAILY 5 days 01/24/22 #10 tabs ketorolac 10 mg tablet 10 mg PO Q6H PRN pain 5 days #20 03/04/22 tabs amoxicillin 875 mg-potassium 1 tab PO BID 7 days #14 tabs 09/10/22 clavulanate 125 mg tablet fluconazole 150 mg tablet 150 mg PO Q3D 2 doses #2 tabs 09/10/22 ketorolac 10 mg tablet 10 mg PO QID PRN pain 5 days #20 08/11/23 tabs prednisone 20 mg tablet 40 mg (2 x 20 mg) PO DAILY 5 days 08/11/23 #10 tabs albuterol sulfate 2.5 mg/0.5 mL 5 mg inhalation Q6H PRN shortness 11/17/23 solution for nebulization of breath or wheezing #30 ea albuterol sulfate 90 mcg/actuation 2 inh inhalation Q20M PRN 11/17/23 breath activated powder inhaler shortness of breath or wheezing #1 ea amoxicillin 875 mg-potassium 1 tab PO BID 7 days #14 tabs 11/17/23 clavulanate 125 mg tablet benzonatate 100 mg capsule 100 mg PO BID PRN cough #20 caps 11/17/23 prednisone 20 mg tablet 40 mg (2 x 20 mg) PO DAILY 4 days 11/17/23 #8 tabs albuterol sulfate 90 mcg/actuation 2 inh inhalation Q20M wheezing #1 06/28/24 breath activated powder inhaler ea azithromycin 250 mg tablet See Rx Instructions PO .COMPLEX #6 06/28/24 tabs fluconazole 150 mg tablet 150 mg PO Q3D 2 doses #2 tabs 06/28/24 prednisone 20 mg tablet 40 mg (2 x 20 mg) PO DAILY 5 days 06/28/24 #10 tabs Allergies Allergy/AdvReac Type Severity Reaction Status Date / Time guaifenesin [GUAIFENESIN] Allergy Intermediate HIVES Verified 06/28/24 11:44 metaproterenol [From Alupent] Allergy Mild PALPITATIONS, Verified 06/28/24 11:44 RASH Review of Systems 2 Review of Systems: Yes all other systems are reviewed and are negative PMFSH Past Medical History Attestation statement: The following information was validated with the patient. Source: old records reviewed and nursing notes reviewed Medical History Rectal bleed Diarrhea Incisional hernia Small bowel obstruction COVID-19 Anxiety Colitis Colitis Cholecystectomy planned Cervical cancer Radiation cystitis Surgical History History of exploratory laparotomy Hx of elbow surgery Tubal ligation status Family History Family History Other No family history of coronary artery disease Social History Social History Household Members: Spouse and Family Housing: House Do you presently have visiting nurse or other home services: No Alcohol intake: never Patient Tobacco Use Status: Current everyday Tobacco user Tobacco use type: Cigarette Cigarettes Per Day: 2 Years Smoked: 25 Second Hand Smoke Exposure: No Substance Use Type: Other Advance Directives: Yes Advance Directives on File: Yes Advance Directives Date on File: 03/17/21 Do you have a plan to hurt others: No Plan service: No Current occupational status: employed Physical Exam ED Vital Signs: Vital Signs - 24 hr 06/28/24 11:40 06/28/24 15:24 06/28/24 15:31 Temperature 98.5 F 98.3 F Pulse Rate 109 H 101 H 101 H Respiratory Rate 18 18 18 Blood Pressure 126/78 132/84 Pulse Oximetry 99 94 Oxygen Delivery Method Room Air Room Air BMI result Body Mass Index 20.8 tachycardic, vitals otherwise wnl General: Well appearing, in no acute distress. Skin: Warm, dry, intact. No rashes or lesions. Head: Normocephalic, atraumatic. EENT: Hearing is intact b/l. Conjunctiva clear. Sclera is anicteric. PERRLA. EOM intact. Moist mucous membranes.? Neck: Supple without LAD Cardiac: Chest wall symmetric. RRR Lungs: Normal respiratory effort without accessory muscle use, no tripoding. lungs with scattered expiratory wheezes throughout, rhonchi to right lower lung Abdomen: Soft, non-tender, non-distended. No rebound tenderness or guarding. Positive BS x4. Ext: Upper and lower extremities atraumatic, without tenderness, deformity, swelling or erythema. no pitting edema, no calf tenderness Neuro: AOx3. Normal speech. Ambulating with steady gait. Psych: Appropriate mood and affect. Responds appropriately to questions. Course Course Course Narrative: RME, this is a rapid medical exam performed by Branden Trujillo please refer to primary provider for complete H&P- 48-year-old female presents for evaluation of cough and shortness of breath. Plan for labs, chest x-ray, ekg Reevaluation(s) Reevaluation #1: CBC without leukocytosis. Normocytic anemia, h&h stable when compared to priors. chemistry without acute electrolyte abnormality requiring intervention. no wilberto. troponin undetectable. negative covid, flu, rsv. CXR shows findings concerning for bronchopneumonia. Patient received ed bronch tx with improvement in wheezing. Satting 99% on RA. No respiratory distress Will discharge home with prednisone, albuterol and azithromycin. Patient agreeable. Patient has remained stable throughout ED visit today. Discussed worrisome signs and symptoms and when to return to the ED. All questions answered at this time. Patient is agreeable with disposition and stable for discharge. Medications Administered Discontinued Medications Generic Name Dose Route Start Last Admin Trade Name Freq PRN Reason Stop Dose Admin Albuterol Sulfate 2.5 mg/ 0 mg 06/28/24 14:22 06/28/24 14:28 Albuterol/Ipratropium 3 ml INHALE 06/28/24 14:23 5 dose ONCE ONE Administration Ketorolac Tromethamine 30 mg 06/28/24 14:07 06/28/24 14:24 Ketorolac Tromethamine 30 Mg/Ml Vial IM 06/28/24 14:08 30 mg ONCE ONE Administration Medical Decision Making Medical Decision Making [facility] Narrative: 48-year-old female with pmhx significant for anxiety, colitis, SBO s/p bowel resection presents to the ED today for evaluation of feeling generally unwell x4 days. Patient is slightly tachycardic, afebrile. She is nontoxic-appearing and in no acute distress. On exam, scattered expiratory wheezes with rhonchi noted to right lung base. No respiratory distress or tripoding. No increased effort of breathing. Bronchospastic cough. RRR. No pitting edema to lower extremities. No calf tenderness b/l. Differential diagnosis includes viral syndrome, bronchitis, pneumonia, costochondritis, pleuritis Unlikely PE. Unlikely ACS, arrhythmia, pleural effusion. Plan for labs, ekg, viral swabs, cxr, ed bronch treatment. Differential Diagnosis Differential Diagnoses: The differential diagnosis associated with the presentation includes as above. Admission/Observation not indicated Lab Data [facility] Lab Attestation statement: I reviewed the patient's lab results. as above 06/28/24 12:19 06/28/24 12:19 Labs: Lab Results 06/28/24 Range/Units 12:19 WBC 4.8 (4.8-10.8) X10*3/uL RBC 3.70 L (4.20-5.50) X10*6/uL Hgb 11.8 L (12.0-16.0) g/dl Hct 34.2 L (37.0-47.0) % MCV 92.4 (80.0-98.0) fL MCH 31.9 (27.0-33.0) pg MCHC 34.5 (31.0-35.0) g/dl RDW 13.2 (11.0-16.0) % Plt Count 164 (160-400) X10*3/uL MPV 8.7 L (9.4-12.3) fL Immature Gran % (Auto) 0.2 (0.0-0.4) % Neut % (Auto) 74.2 H (45-73) % Lymph % (Auto) 14.5 L (20-40) % Lamb % (Auto) 7.8 (2-11) % Eos % (Auto) 2.9 (0-4) % Baso % (Auto) 0.4 (0-2) % Lymph # (Auto) 0.7 L (1.2-4.9) X10*3/uL Lamb # (Auto) 0.4 (0.1-1.2) X10*3/uL Eos # (Auto) 0.1 (0.0-0.4) X10*3/uL Baso # (Auto) 0.0 (0.0-0.2) X10*3/uL Abs Immat Gran (auto) 0.01 (0.00-0.03) X10*3/uL Absolute Neuts (auto) 3.5 (2.0-8.3) x10*3/uL Absolute Nucleated RBC 0.000 (0.0-0.012) X10*3/uL Nucleated RBC % (auto) 0.0 (0.0-0.2) /100WBC Sodium 136 (135-145) mmol/L Potassium 3.8 (3.3-5.1) mmol/L Chloride 101 (96-108) mmol/L Carbon Dioxide 26 (22-29) mmol/L Anion Gap 13 (12-20) BUN 8 L (9-16) mg/dL Creatinine 0.66 (0.5-1.4) mg/dL Estim Creat Clear Calc 80.6 Estimated GFR > 60 Random Glucose 100 (60-115) mg/dL Calcium 8.2 L D (8.4-10.2) mg/dL Total Bilirubin 0.3 (0.0-1.0) mg/dL AST 23 (5-31) U/L ALT 16 (0-31) U/L Alkaline Phosphatase 82 (39-117) U/L Troponin I High Sens < 2.7 (<3.5-17.0) ng/L Total Protein 6.3 L (6.5-8.0) g/dL Albumin 3.8 (3.5-5.0) g/dL Influenza Type A (PCR) NEGATIVE (Negative) Influenza Type B (PCR) NEGATIVE (Negative) RSV RNA Qual (PCR) NEGATIVE (Negative) SARS-CoV-2 RNA (RT-PCR) NEGATIVE (Negative) Independent Interpretation I performed an independent interpretation of an: EKG and Plain X-Ray Interpretation: CXR showing opacity to right lower lobe EKG showing sinus tachycardia, no acute ischemic changes or st elevations. Known left bundle branch block when compared to priors. Radiology Impression Discussion of test interpretation with radiology: I have reviewed the radiologist's reading. Radiologist Impression: Procedure(s): XR chest 2V Accession Number(s): [id number] cc: Chandan Koenig PA-C; Payam Trujillo~ EXAMINATION: XR CHEST CLINICAL INFORMATION: cough COMPARISON: None available. TECHNIQUE: 2 views of the chest were obtained. FINDINGS: The cardiac, hilar, and mediastinal contours are normal. Lungs appear mildly hyperaerated. There is peribronchial thickening in the right lower lobe distribution with associated mild opacity. The left lung appears clear. There is no pneumothorax or pleural effusion. There is no focal osseous or soft tissue abnormality. XR/XR chest 2V IMPRESSION: Mild peribronchial thickening with minimal associated opacity in the right lower lobe distribution. A focal bronchopneumonia is not excluded. There is no effusion. Electronically signed by: Pavel Downs MD 06/28/2024 12:08 PM EDT RP External Record Review External record reviewed: Inpatient record Prescription Management I considered prescription management with: Antibiotic (azithromycin) and Other (prednisone) Social Determinants Patient?s care significantly limited by Social Determinants of Health including: Other Social Determinant of Health Critical Care Time Critical Care Time Critical Care Time: No Discharge Plan Discharge Clinical Impression: Bronchopneumonia Patient Disposition: Home, Self-Care Instructions: Community Acquired Pneumonia (ED) Additional Instructions: Your blood work today is reassuring. You tested negative for COVID, flu, RSV. Your chest x-ray is concerning for bronchopneumonia. Treatment for this is with antibiotics. Azithromycin as an antibiotic that has been sent to your pharmacy for treatment. Take this as prescribed for the next 5 days. I am also sending prednisone a steroid to your pharmacy. Take this as prescribed over the next 5 days. I am also sending an albuterol inhaler to your pharmacy. Use this as needed for shortness of breath or wheezing. If you find yourself using this more often without relief, please return to the ED as you may require further treatment. Follow up with your primary care provider as plan. Return with any new or worsening symptoms. In the case of an emergency call 911. Prescriptions: New azithromycin 250 mg tablet See Rx Instructions .ROUTE .COMPLEX Qty: 6 0RF Rx Instructions: For 250 mg dose pack: take 500 mg today (day 1), then 250 mg for 4 days (days 2-5) prednisone 20 mg tablet 40 mg PO DAILY 5 Days Qty: 10 0RF albuterol sulfate 90 mcg/actuation aerosol powdr breath activated 2 inh inhalation Q20M Qty: 1 0RF fluconazole 150 mg tablet 150 mg PO Q3D 0 Days Qty: 2 0RF No Action diphenoxylate-atropine [Lomotil] 2.5-0.025 mg tablet 1 tab PO QID PRN (Reason: diarrhea) Qty: 30 0RF norgestimate-ethinyl estradiol [Estarylla] 0.25-35 mg-mcg tablet 1 tab PO DAILY clonazepam 0.5 mg tablet 0.5 mg PO TID zolpidem 12.5 mg tablet,ext release multiphase 1 tab PO BEDTIME PRN (Reason: Sleep) cefuroxime axetil 250 mg tablet 250 mg PO Q12H 7 Days Qty: 14 0RF ketorolac 10 mg tablet 10 mg PO TID PRN (Reason: pain) 5 Days Qty: 14 0RF Rx Instructions: Patient monitored and observed in the emergency department after receiving ketorolac IM, and tolerated well, no complications, no reaction. prednisone 20 mg tablet 40 mg PO DAILY 5 Days Qty: 10 0RF benzonatate 100 mg capsule 100 mg PO TID PRN (Reason: cough) Qty: 14 0RF albuterol sulfate 90 mcg/actuation HFA aerosol inhaler 2 puff inhalation Q4-6H PRN (Reason: shortness of breath or wheezing) Qty: 6.7 0RF fluticasone propionate [Flonase Allergy Relief] 50 mcg/actuation spray,suspension 2 spray intranasal DAILY Qty: 16 0RF Rx Instructions: administer into each nostril albuterol sulfate 2.5 mg/0.5 mL solution for nebulization 5 mg inhalation Q4H PRN (Reason: shortness of breath or wheezing) Qty: 30 0RF dicyclomine 20 mg Tablet 20 mg PO QID omeprazole 40 mg capsule,delayed release(DR/EC) 1 cap PO QAM ondansetron 4 mg tablet,disintegrating 1 tab PO DAILY prednisone 10 mg tablet 10 mg PO DAILY Qty: 5 0RF oxycodone 5 mg tablet 1 tab PO TID PRN (Reason: Pain (Scale Score 7-10)) Qty: 10 0RF simethicone [Gas Relief (simethicone)] 80 mg Tablet,Chewable 80 mg PO QIDWMHS PRN (Reason: gas pains) Qty: 30 0RF ketorolac 10 mg tablet 10 mg PO Q6H PRN (Reason: pain) 5 Days Qty: 20 0RF Rx Instructions: Patient received Toradol in the emergency room. prednisone 20 mg tablet 40 mg PO DAILY 5 Days Qty: 10 0RF ketorolac 10 mg tablet 10 mg PO QID PRN (Reason: pain) 5 Days Qty: 20 0RF Rx Instructions: Patient received Toradol 30 mg IM in the ED. amoxicillin-pot clavulanate 875-125 mg tablet 1 tab PO BID 7 Days Qty: 14 0RF fluconazole 150 mg tablet 150 mg PO Q3D Qty: 2 0RF Rx Instructions: may repeat second dose 72 hrs after first dose if symptoms persist albuterol sulfate 90 mcg/actuation aerosol powdr breath activated 2 inh inhalation Q20M PRN (Reason: shortness of breath or wheezing) Qty: 1 0RF albuterol sulfate 2.5 mg/0.5 mL solution for nebulization 5 mg inhalation Q6H PRN (Reason: shortness of breath or wheezing) Qty: 30 0RF prednisone 20 mg tablet 40 mg PO DAILY 4 Days Qty: 8 0RF amoxicillin-pot clavulanate 875-125 mg tablet 1 tab PO BID 7 Days Qty: 14 0RF benzonatate 100 mg capsule 100 mg PO BID PRN (Reason: cough) Qty: 20 0RF duloxetine 20 mg capsule,delayed release(DR/EC) 20 mg PO BID nortriptyline 10 mg capsule 0 mg PO Referrals: Chandan Koenig PA-C [Primary Care Provider] - Stand Alone Forms: Work/School Release Interventions: ED Discharge Assessment Last Done: 06/28/24 15:31 Discharge Date/Time: 06/28/24 15:31 Print Language: Congolese
--- NOTE | 2024-06-28 11:41 | ECG_ITS ---
Test Reason : SOB Blood Pressure : */* mmHG Vent. Rate : 111 BPM Atrial Rate : 111 BPM P-R Int : 174 ms QRS Dur : 140 ms QT Int : 356 ms P-R-T Axes : 67 -64 98 degrees QTcB Int : 484 ms Sinus tachycardia Left axis deviation Left bundle branch block Abnormal ECG When compared with ECG of 18-Mar-2021 11:27, Vent. rate has increased by 38 bpm T wave amplitude has increased in Anterior leads T wave inversion more evident in Lateral leads Referred By: Payam Trujillo Electronically Signed By: Rishi Brooks
[2024-06-28 12:25] LABS: MANUAL DIFF FLAG NO
[2024-06-28 12:27] LABS: Basophils Percent Auto 0.4 % (0-2); Eosinophils Absolute Auto 0.1 X10*3/uL (0.0-0.4); Eosinophils Percent Auto 2.9 % (0-4); Hematocrit 34.2 % (37.0-47.0); Hemoglobin 11.8 g/dl (12.0-16.0); Imm Gran Abs Auto 0.01 X10*3/uL (0.00-0.03); Imm Gran Pct Auto 0.2 % (0.0-0.4); Lymphocytes Absolute Auto 0.7 X10*3/uL (1.2-4.9); Lymphocytes Percent Auto 14.5 % (20-40); Mean Corpuscular HGB Conc 34.5 g/dl (31.0-35.0); Mean Corpuscular Hemoglobin 31.9 pg (27.0-33.0); Mean Corpuscular Volume 92.4 fL (80.0-98.0); Mean Platelet Volume 8.7 fL (9.4-12.3); Monocytes Absolute Auto 0.4 X10*3/uL (0.1-1.2); Monocytes Percent Auto 7.8 % (2-11); Neutrophils Absolute Auto 3.5 x10*3/uL (2.0-8.3); Neutrophils Percent Auto 74.2 % (45-73); Platelet Count 164 X10*3/uL (160-400); Red Cell Distribution Width 13.2 % (11.0-16.0); White Blood Count 4.8 X10*3/uL (4.8-10.8)
[2024-06-28 12:49] LABS: Troponin-I High Sensitivity < 2.7 ng/L (<3.5-17.0)
[2024-06-28 13:06] LABS: Alanine Aminotransferase 16 U/L (0-31); Albumin Level 3.8 g/dL (3.5-5.0); Alkaline Phosphatase 82 U/L (39-117); Anion Gap 13 (12-20); Aspartate Amino Transferase 23 U/L (5-31); Bilirubin Total 0.3 mg/dL (0.0-1.0); Blood Urea Nitrogen 8 mg/dL (9-16); Calcium 8.2 mg/dL (8.4-10.2); Carbon Dioxide 26 mmol/L (22-29); Chloride 101 mmol/L (96-108); Creatinine Clr Calc Pharmacy 80.6; Estimated Glomerular Filt Rate > 60; Glucose Random 100 mg/dL (60-115); Potassium 3.8 mmol/L (3.3-5.1); Sodium 136 mmol/L (135-145); Total Protein 6.3 g/dL (6.5-8.0)
[2024-06-28 13:43] LABS: Influenza A PCR NEGATIVE (Negative); Influenza B PCR NEGATIVE (Negative); Resp Syncy Virus RNA Qual PCR NEGATIVE (Negative); SARS COV2 PCR INHOUSE NEGATIVE (Negative)
--- OUTSIDE RECORDS SUMMARY | 2024-06-28 13:59 | XMS_ITS ---
Author Organization [facility] Address [address] [place] [id number] Care Team Providers Care Adult Secondary Education Instructor Name Role Phone Breana Roberts Primary Care Provider Juan Carlos Guzman Jr REASON FOR VISIT abdominal pain Encounters Encounter Location Date Provider Diagnosis [facility] [address] [place] [id number] 06/03/2024 Juan Carlos Mejia Jr Plan Of Treatment Next Appt Details Provider Name:Juan Carlos lopez Jr, 10/28/2024 11:10:00 AM, [address], [address], [place], [address], Progress Notes * RICCARDO VARGAS MDOB:[birth year] (48 yo F)Acc No.[id number]:06/03/2024 Progress Notes Patient:?RICCARDO VARGAS Provider:?Juan Carlos Mejia MD :[id number]???Age:48 Y???Sex:Female D ate:06/03/2024 Address:[address] [place] [address] Pcp:NIKHIL Hastings Subjective: * Chief Complaints: * ???1. Abdominal pain. * Medical History:? Objective: * Vitals:? Assessment: Plan: * Treatment: * * The named appointment provid er may or may not be the originator of this progress note, and it is not deemed complete until electronically signed by the appointment provider. Sign off status: Pending * Provider:?Juan Carlos Mejia MD Date:?0 06/03/2024 Generated for Willie patton/Marko/Qi on:?06/28/2024 01:58 PM EDT
[2024-06-28] MEDS: Ketorolac Tromethamine 30 MG/ML VIAL IM (14:24)
[2024-06-28] MEDS: Albuterol Sulfate 2.5 MG, Albuterol/Iprat 2.5/0.5MG 3 ML 3 ML INHALE (14:28)
--- NOTE | 2024-06-28 15:20 | PC.NURSE ---
Patient is requesting Rx for yeast infections stating I always get yeast infections when I take antibiotics and Rx Toradol prior to discharge. Message sent to HOOD Sullivan. Awaiting response.
[2024-06-28 15:24] VITALS: PULSE 101; RESP 18; O2SAT 96
[2024-06-28 15:31] VITALS: BP 132/84; PULSE 101; RESP 18; TEMP 36.8; O2SAT 94
== END 2024-06-28 15:31 | disposition home or self-care (01) ==
PROVIDERS: Physician Assistant; Emergency Provider Emergency Medicine; PCP Physician Assistant Surgical
DX: R06.02 Shortness of breath (principal); R05.9 Cough, unspecified; R00.0 Tachycardia, unspecified; Z03.818 Encounter for observation for suspected exposure to other biological agents ruled out; Z79.899 Other long term (current) drug therapy
CPT/HCPCS: 0241U; 71046; 80053; 84484; 85025; 93005; 94640; 99284; J1885

== ENCOUNTER → 2024-06-28 11:41 | Outpatient (BNV) | payer MEDICARE, MEDICAID, SELFPAY | PROVIDERS: Emergency Provider Emergency Medicine; PCP Physician Assistant Surgical; Visit Provider Internal Medicine Cardiovascular Disease | DX: I44.7 Left bundle-branch block, unspecified (principal); R00.0 Tachycardia, unspecified | CPT/HCPCS: 93010 ==

== ENCOUNTER → 2024-06-28 11:41 | Outpatient (BNV) | payer OTHER, SELFPAY | PROVIDERS: PCP Physician Assistant Surgical; Visit Provider Radiology Diagnostic Radiology | DX: R05.9 Cough, unspecified (principal) | CPT/HCPCS: 71046 ==

== ENCOUNTER 2024-10-14 13:22 | Emergency (ER) | payer MEDICARE, MEDICAID, SELFPAY ==
--- OUTSIDE RECORDS SUMMARY | 2024-06-03 09:15 | XMS_ITS ---
Author Organization [facility] Address [address] [place] [address] Care Team Providers Care Sod Cutter Name Role Phone Breana Roberts Primary Care Provider Juan Carlos Guzman Jr REASON FOR VISIT abdominal pain Encounters Encounter Location Date Provider Diagnosis [facility] [address] [facility] [address] [place] [phone] 06/03/2024 Juan Carlos Mejia Jr Plan Of Treatment Next Appt Details Provider Name:Juan Carlos lopez Jr, 10/28/2024 11:00:00 AM, [address] [facility], [address], [place], [address], Progress Notes * RICCARDO VARGAS MDOB:[birth year] (48 yo F)Acc No.[id number]:06/03/2024 Progress Notes Patient: MAG ADONISYOCASTA Gabriel Provider: Sarthak Mejia MD :1975 A ge:48 Y S ex:Female Date:06/03/2024 Address:[address] [place] [address] Pcp:NIKHIL Hastings Subjective: * Chief Complaints: * 1 . Abdominal pain. * Medical History: Objective: * Vitals: Assessment: Plan: * Treatment: * * The named appointment provid er may or may not be the originator of this progress note, and it is not deemed complete until electronically signed by the appointment provider. Sign off status: Pending * Provider: Sarthak Mejia MD Date: 0 06/03/2024 Generated for Willie patton/Marko/Qi on: 0 10/14/2024 06:53 PM EDT
--- NOTE | ~2024-10-14 | XR_ITS ---
EXAMINATION: XR CHEST 2 VIEWS HISTORY: cough, SOB COMPARISON: Comparison is made with the prior examination dated 06/28/2024. FINDINGS: PA and lateral views of the chest are submitted. The lungs are expanded and clear. There is no pleural effusion, pneumothorax, or pulmonary vascular congestion. The heart is normal in size. The bones are intact. XR/XR chest 2V IMPRESSION: No acute cardiopulmonary abnormality. Electronically signed by: Alhaji Lee MD 10/14/2024 02:25 PM EDT
[2024-10-14 13:40] VITALS: BP 139/89; PULSE 92; RESP 16; TEMP 36.6; O2SAT 98
--- NOTE | 2024-10-14 13:45 | ED_ITS ---
HPI - General Adult General Chief complaint: Upper Respiratory Symptoms Stated complaint: SOB, with cough and congestion Time Seen by Provider: 10/14/24 17:00 Source: patient Mode of arrival: ambulatory Limitations: no limitations History of Present Illness ED Provider: Dr. Blakely HPI narrative: 48-year-old female history of asthma presented hospital today for 2 weeks of coughing and productive sputum. She states she has been coughing up green sputum. She has been trying conservative treatment at home without any alleviation she has been trying to take some NyQuil as well. Patient is endorsing some shortness of breath with his coughing as well. Related Data Home Medications ?Medication ?Instructions ?Recorded ?Confirmed clonazepam 0.5 mg tablet 0.5 mg PO TID 09/09/2011/01 norgestimate 0.25 mg-ethinyl 1 tab PO DAILY 09/09/20 0 11/01/21 estradiol 0.035 mg tablet (Estarylla) zolpidem 12.5 mg tablet,extended 1 tab PO BEDTIME PRN Sleep 09/09/20 11/01/21 release,multiphase dicyclomine 20 mg tablet 20 mg PO QID 04/06/21 omeprazole 40 mg capsule,delayed 1 cap PO QAM 04/23/21 11/01/21 release ondansetron 4 mg disintegrating 1 tab PO DAILY 2 11/01/21 tablet duloxetine 20 mg capsule,delayed 20 mg PO BID 05/13/21 11/01/21 release nortriptyline 10 mg capsule 0 mg PO 11/01/21 11/01/21 Previous Rx's ?Medication ?Instructions ?Recorded oxycodone 5 mg tablet 1 tab PO TID PRN Pain (Scale Score 05/06/21 7-10) #10 tabs prednisone 10 mg tablet 10 mg PO DAILY #5 tabs 05/06 simethicone 80 mg chewable tablet 80 mg PO QIDWMHS PRN gas pains #30 05/06/21 (Gas Relief (simethicone)) tabs cefuroxime axetil 250 mg tablet 250 mg PO Q12H 7 days #14 tabs 08/04/21 ketorolac 10 mg tablet 10 mg PO TID PRN pain 5 days #14 08/04/21 tabs diphenoxylate-atropine 2.5 1 tab PO QID PRN diarrhea # 30 tabs 12/13/21 mg-0.025 mg tablet (Lomotil) albuterol sulfate 2.5 mg/0.5 mL 5 mg inhalation Q4H TX N shortness 01/24/22 solution for nebulization of breath or wheezing #30 ea albuterol sulfate 90 mcg/actuation 2 puff inhalation Q 4-6H PRN 01/24/22 aerosol inhaler shortness of breath or wheez ing #6.7 grams benzonatate 100 mg capsule 100 mg PO TID PRN cough #14 caps 01/24/22 fluticasone propionate 50 2 spray intranasal DAILY #16 grams 01/24/22 mcg/actuation nasal spray,suspension (Flonase Allergy Relief) prednisone 20 mg tablet 40 mg (2 x 20 mg) PO DAILY 5 days 01/24/22 #10 tabs ketorolac 10 mg tablet 10 mg PO Q6H PRN pain 5 days #20 03/04/22 tabs amoxicillin 875 mg-potassium 1 tab PO BID 7 days #14 t abs 09/10/22 clavulanate 125 mg tablet fluconazole 150 mg tablet 150 mg PO Q3D 2 doses #2 tab s 09/10/22 ketorolac 10 mg tablet 10 mg PO QID PRN pain 5 days #20 08/11/23 tabs prednisone 20 mg tablet 40 mg (2 x 20 mg) PO DAILY 5 days 08/11/23 #10 tabs albuterol sulfate 2.5 mg/0.5 mL 5 mg inhalation Q6H TX N shortness 11/17/23 solution for nebulization of breath or wheezing #30 ea albuterol sulfate 90 mcg/actuation 2 inh inhalation Q2 0M PRN 11/17/23 breath activated powder inhaler shortness of breath or wheezing #1 ea amoxicillin 875 mg-potassium 1 tab PO BID 7 days #14 t abs 11/17/23 clavulanate 125 mg tablet benzonatate 100 mg capsule 100 mg PO BID PRN cough #20 caps 11/17/23 prednisone 20 mg tablet 40 mg (2 x 20 mg) PO DAILY 4 days 11/17/23 #8 tabs albuterol sulfate 90 mcg/actuation 2 inh inhalation Q2 0M wheezing #1 06/28/24 breath activated powder inhaler ea azithromycin 250 mg tablet See Rx Instructions PO .COM PLEX #6 06/28/24 tabs fluconazole 150 mg tablet 150 mg PO Q3D 2 doses #2 tab s 06/28/24 prednisone 20 mg tablet 40 mg (2 x 20 mg) PO DAILY 5 days 06/28/24 #10 tabs albuterol sulfate 2.5 mg/0.5 mL 5 mg inhalation Q6H TX N shortness 10/14/24 solution for nebulization of breath or wheezing #30 ea albuterol sulfate 90 mcg/actuation 1 inh inhalation QI D PRN shortness 10/14/24 aerosol inhaler (Ventolin HFA) of breath or wheezing # 8.5 grams amoxicillin 875 mg-potassium 1 tab PO Q12H 7 days #14 tabs 10/14/24 clavulanate 125 mg tablet doxycycline hyclate 100 mg capsule 100 mg PO BID 7 day s #14 caps 10/14/24 Allergies Allergy/AdvReac Type Severity Reaction Status Date / Time guaifenesin (GUAIFENESIN) Allergy Intermediate HIVES Verified 10/14/24 13:42 metaproterenol (From Alupent) Allergy Mild PALPITATIONS, Verified 10/14/24 13:42 RASH Review of Systems 2 Review of Systems: Pertinent review of systems as mentioned in HPI. All other system otherwise negative. [facility] Past Medical History [facility] Narrative: History of C diff Medical History Rectal bleed Diarrhea Incisional hernia Small bowel obstruction COVID-19 Anxiety Colitis Colitis Cholecystectomy planned Cervical cancer Radiation cystitis Surgical History History of exploratory laparotomy Hx of elbow surgery Tubal ligation status Family History Family History Other No family history of coronary artery disease Social History Social History Household Members: Spouse and Family Housing: House Do you presently have visiting nurse or other home services: No Alcohol intake: never Patient Tobacco Use Status: Current everyday Tobacco user Tobacco use type: Cigarette Cigarettes Per Day: 2 Years Smoked: 25 Second Hand Smoke Exposure: No Substance Use Type: Other Advance Directives: Yes Advance Directives on File: Yes Advance Directives Date on File: 03/17/21 Do you have a plan to hurt others: No Plan service: No Current occupational status: employed Physical Exam ED Exam Exam: General: Pleasant, no distress, interacting appropriately Head: Normacephalic, atraumatic ENT: oral mucosa moist, neck supple, no tracheal deviation Cardiovascular: regular rate, regular rhythm, no murmurs, rubbing, gallops Respiratory: Bilateral expiratory wheeze with some rales Neurological: Awake and alert, no facial droop noted Skin: Warm and dry Psychiatric: Appropriate mood and thoughts Vital Signs: Vital Signs - 24 hr 10/14/24 13:40 10/14/24 17:53 Temperature 98 F 98 F Pulse Rate 92 92 Respiratory Rate 16 16 Blood Pressure 139/89 139/89 Pulse Oximetry 98 98 Oxygen Delivery Method Room Air Room Air BMI result Body Mass Index 20.0 Course Course Course Narrative: Rapid medical examination performed in triage by Jenna Perry PA-C. Patient is a 48 year old assigned female at presenting to the emergency department with a cough and migraine. Detailed physical exam and review of systems are deferred to the warehouse associate driver. Labs ordered. Patient placed back in the waiting room pending room availability and results. Medical Decision Making Medical Decision Making [facility] Narrative: This is a 48-year-old female presented hospital today for evaluation of 2 weeks of persistent productive cough of green sputum. Chest x-ray is unremarkable no sign of consolidation. Lab work is unremarkable as well. Given patient's persistent coughing and productive sputum. We will plan to start patient on antibiotic. We will also plan to send the patient cartridge for albuterol nebulizer. And an albuterol inhaler will be prescribed to the patient as well. Patient will be discharged. Differential Diagnosis Differential Diagnoses: The differential diagnosis associated with the presentation includes Bronchitis, pneumonia, pertussis Lab Data [facility] Lab Attestation statement: I reviewed the patient's lab results. 10/14/24 13:52 10/14/24 13:52 Labs: Lab Results 10/14/24 Range/Units 13:52 WBC 5.3 (4.8-10.8) X10*3/uL RBC 4.21 (4.20-5.50) X10*6/uL Hgb 13.5 (12.0-16.0) g/dl Hct 40.2 (37.0-47.0) % MCV 95.5 (80.0-98.0) fL MCH 32.1 (27.0-33.0) pg MCHC 33.6 (31.0-35.0) g/dl RDW 13.6 (11.0-16.0) % Plt Count 282 D (160-400) X10*3/uL MPV 8.6 L (9.4-12.3) fL Immature Gran % (Auto) 0.2 (0.0-0.4) % Neut % (Auto) 66.7 (45-73) % Lymph % (Auto) 22.3 (20-40) % Freestone % (Auto) 7.7 (2-11) % Eos % (Auto) 2.3 (0-4) % Baso % (Auto) 0.8 (0-2) % Lymph # (Auto) 1.2 (1.2-4.9) X10*3/uL Freestone # (Auto) 0.4 (0.1-1.2) X10*3/uL Eos # (Auto) 0.1 (0.0-0.4) X10*3/uL Baso # (Auto) 0.0 (0.0-0.2) X10*3/uL Abs Immat Gran (auto) 0.01 (0.00-0.03) X10*3/uL Absolute Neuts (auto) 3.5 (2.0-8.3) x10*3/uL Absolute Nucleated RBC 0.000 (0.0-0.012) X10*3/uL Nucleated RBC % (auto) 0.0 (0.0-0.2) /100WBC Sodium 141 (135-145) mmol/L Potassium 4.0 (3.3-5.1) mmol/L Chloride 105 (96-108) mmol/L Carbon Dioxide 27 (22-29) mmol/L Anion Gap 13 (12-20) BUN 9 (9-16) mg/dL Creatinine 0.81 (0.5-1.4) mg/dL Estim Creat Clear Calc 67.0 Estimated GFR > 60 Random Glucose 97 (60-115) mg/dL Calcium 9.0 D (8.4-10.2) mg/dL Magnesium 1.8 (1.6-2.6) mg/dL Total Bilirubin 0.3 (0.0-1.0) mg/dL AST 31 (5-31) U/L ALT 21 (0-31) U/L Alkaline Phosphatase 102 (39-117) U/L Total Protein 7.0 (6.5-8.0) g/dL Albumin 4.2 (3.5-5.0) g/dL COVID-19 (JANIS) Negative (Negative) COVID-19 Clin Com See Note Influenza Type A (LINDA) Negative (Negative) Influenza Type B (LINDA) Negative (Negative) Influenza A & B Note See Note Independent Interpretation I performed an independent interpretation of an: Plain X-Ray Radiology Impression Discussion of test interpretation with radiology: I have reviewed the radiologist's reading. Discharge Plan Discharge Clinical Impression: Atypical pneumonia Patient Disposition: Home, Self-Care Prescriptions: New albuterol sulfate 2.5 mg/0.5 mL solution for nebulization 5 mg inhalation Q6H PRN (Reason: shortness of breath or wheezing) Qty: 30 0RF doxycycline hyclate 100 mg capsule 100 mg PO BID 7 Days Qty: 14 0RF amoxicillin-pot clavulanate 875-125 mg tablet 1 tab PO Q12H 7 Days Qty: 14 0RF albuterol sulfate [Ventolin HFA] 90 mcg/actuation HFA aerosol inhaler 1 inh inhalation QID PRN (Reason: shortness of breath or wheezing) Qty: 8.5 0RF No Action diphenoxylate-atropine [Lomotil] 2.5-0.025 mg tablet 1 tab PO QID PRN (Reason: diarrhea) Qty: 30 0RF norgestimate-ethinyl estradiol [Estarylla] 0.25-35 mg-mcg tablet 1 tab PO DAILY clonazepam 0.5 mg tablet 0.5 mg PO TID zolpidem 12.5 mg tablet,ext release multiphase 1 tab PO BEDTIME PRN (Reason: Sleep) cefuroxime axetil 250 mg tablet 250 mg PO Q12H 7 Days Qty: 14 0RF ketorolac 10 mg tablet 10 mg PO TID PRN (Reason: pain) 5 Days Qty: 14 0RF Rx Instructions: Patient monitored and observed in the emergency department after receiving ketorolac IM, and tolerated well, no complications, no reaction. prednisone 20 mg tablet 40 mg PO DAILY 5 Days Qty: 10 0RF benzonatate 100 mg capsule 100 mg PO TID PRN (Reason: cough) Qty: 14 0RF albuterol sulfate 90 mcg/actuation HFA aerosol inhaler 2 puff inhalation Q4-6H PRN (Reason: shortness of breath or wheezing) Qty: 6.7 0RF fluticasone propionate [Flonase Allergy Relief] 50 mcg/actuation spray,suspension 2 spray intranasal DAILY Qty: 16 0RF Rx Instructions: administer into each nostril albuterol sulfate 2.5 mg/0.5 mL solution for nebulization 5 mg inhalation Q4H PRN (Reason: shortness of breath or wheezing) Qty: 30 0RF dicyclomine 20 mg Tablet 20 mg PO QID omeprazole 40 mg capsule,delayed release(DR/EC) 1 cap PO QAM ondansetron 4 mg tablet,disintegrating 1 tab PO DAILY prednisone 10 mg tablet 10 mg PO DAILY Qty: 5 0RF oxycodone 5 mg tablet 1 tab PO TID PRN (Reason: Pain (Scale Score 7-10)) Qty: 10 0RF simethicone [Gas Relief (simethicone)] 80 mg Tablet,Chewable 80 mg PO QIDWMHS PRN (Reason: gas pains) Qty: 30 0RF ketorolac 10 mg tablet 10 mg PO Q6H PRN (Reason: pain) 5 Days Qty: 20 0RF Rx Instructions: Patient received Toradol in the emergency room. prednisone 20 mg tablet 40 mg PO DAILY 5 Days Qty: 10 0RF ketorolac 10 mg tablet 10 mg PO QID PRN (Reason: pain) 5 Days Qty: 20 0RF Rx Instructions: Patient received Toradol 30 mg IM in the ED. amoxicillin-pot clavulanate 875-125 mg tablet 1 tab PO BID 7 Days Qty: 14 0RF fluconazole 150 mg tablet 150 mg PO Q3D Qty: 2 0RF Rx Instructions: may repeat second dose 72 hrs after first dose if symptoms persist albuterol sulfate 90 mcg/actuation aerosol powdr breath activated 2 inh inhalation Q20M PRN (Reason: shortness of breath or wheezing) Qty: 1 0RF albuterol sulfate 2.5 mg/0.5 mL solution for nebulization 5 mg inhalation Q6H PRN (Reason: shortness of breath or wheezing) Qty: 30 0RF prednisone 20 mg tablet 40 mg PO DAILY 4 Days Qty: 8 0RF amoxicillin-pot clavulanate 875-125 mg tablet 1 tab PO BID 7 Days Qty: 14 0RF benzonatate 100 mg capsule 100 mg PO BID PRN (Reason: cough) Qty: 20 0RF azithromycin 250 mg tablet See Rx Instructions .ROUTE .COMPLEX Qty: 6 0RF Rx Instructions: For 250 mg dose pack: take 500 mg today (day 1), then 250 mg for 4 days (days 2-5) prednisone 20 mg tablet 40 mg PO DAILY 5 Days Qty: 10 0RF albuterol sulfate 90 mcg/actuation aerosol powdr breath activated 2 inh inhalation Q20M Qty: 1 0RF fluconazole 150 mg tablet 150 mg PO Q3D 0 Days Qty: 2 0RF duloxetine 20 mg capsule,delayed release(DR/EC) 20 mg PO BID nortriptyline 10 mg capsule 0 mg PO Interventions: ED Discharge Assessment Last Done: 10/14/24 17:53 Discharge Date/Time: 10/14/24 18:02 Print Language: Yakut
[2024-10-14 13:57] LABS: MANUAL DIFF FLAG NO
[2024-10-14 13:58] LABS: Hematocrit 40.2 % (37.0-47.0); Hemoglobin 13.5 g/dl (12.0-16.0); Imm Gran Abs Auto 0.01 X10*3/uL (0.00-0.03); Imm Gran Pct Auto 0.2 % (0.0-0.4); Lymphocytes Absolute Auto 1.2 X10*3/uL (1.2-4.9); Mean Corpuscular HGB Conc 33.6 g/dl (31.0-35.0); Mean Corpuscular Hemoglobin 32.1 pg (27.0-33.0); Mean Corpuscular Volume 95.5 fL (80.0-98.0); NRBC Abs Auto 0.000 X10*3/uL (0.0-0.012); NRBC Pct Auto 0.0 /100WBC (0.0-0.2); Platelet Count 282 X10*3/uL (160-400); Red Blood Count 4.21 X10*6/uL (4.20-5.50); White Blood Count 5.3 X10*3/uL (4.8-10.8)
[2024-10-14 14:15] LABS: COVID-19 Test Negative (Negative); IDNOW Serial# 58CA691E
[2024-10-14 14:21] LABS: Alanine Aminotransferase 21 U/L (0-31); Albumin Level 4.2 g/dL (3.5-5.0); Alkaline Phosphatase 102 U/L (39-117); Anion Gap 13 (12-20); Aspartate Amino Transferase 31 U/L (5-31); Blood Urea Nitrogen 9 mg/dL (9-16); Calcium 9.0 mg/dL (8.4-10.2); Carbon Dioxide 27 mmol/L (22-29); Chloride 105 mmol/L (96-108); Creatinine Clr Calc Pharmacy 67.0; Estimated Glomerular Filt Rate > 60; IDNOW Serial# 55D5AD1C; Influenza B2 Negative (Negative); Magnesium 1.8 mg/dL (1.6-2.6); Potassium 4.0 mmol/L (3.3-5.1); Sodium 141 mmol/L (135-145); Total Protein 7.0 g/dL (6.5-8.0)
[2024-10-14 17:53] VITALS: BP 139/89; PULSE 92; RESP 16; TEMP 36.6; O2SAT 98
--- OUTSIDE RECORDS SUMMARY | 2024-10-14 18:53 | XMS_ITS | Encounter Summary ---
Author Organization Formerly [facility] Address [address] [place] [address] Phone Care Team Providers Care Vanstone Machine Operator Name Role Phone Roxie Brewer MD Unavailable [phone] Jen Ruano MD Unavailable [phone] Cira Duncan DO Unavailable [phone] Wenceslao Chauhan MD Primary Care Provider [phone] Breana Ruano PIPE LINE GAUGER Primary Care Provider [phone] Chandan Koenig-C Primary Care Provider [phone] Chandan Koenig-C Primary Care Provider [phone] Chandan Koenig-C Primary Care Provider [phone] Edmundo Burnham MD Unavailable [phone] Juan Carlos Mejia MD Unavailable Encounter Details Date Type Department Care Team (Late st Contact Info) Description 08/25/2020 Procedure Pass [facility], Ct Scan - [address] [address] Social History Tobacco Use Types Packs/Day Years Used Date Smoking Tobacco: Every Day Cigarettes Smokeless Tobacco: Never Comments:2 cigarettes daily, using vape 4mg nicotene Alcohol Use Standard Drinks/Week Comments Not Currently 0 (1 standard drink = 0.6 oz pur e alcohol) none currently Child or Family Care Answer Date Record ed Do you have problems with on e of the following making it difficult for you to work, study, or receive health care? No 03/06/2020 Education Answer Date Recorded Are you interested in help w ith more adult education (for example, completing high school, GED, job training, learning the Danish language, technical skills, or developing parenting skills)? No 03/06/2020 Are you concerned about learning? Not on file 03/06/2020 Not on file 03/06/2020 Not on file 03/06/2020 Food Answer Date Recorded Within the past 6 months we worried whether our food would run out before we got money to buy more. Sometimes True 021 Within the past 6 months the food we bought just didn't last and we didn't have enough money to get more. Sometimes True 02/07 Paying for Meds Answer Date Recorded Do you have trouble paying for medicines? No 03/06/2020 Paying Utility Bills Answer Date Record ed Do you have trouble paying your heating or elect ricity bill? No 03/06/2020 Transportation Answer Date Recorded Has the lack of transportati on kept you from medical appointments or from getting medications? 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 Wish to be (Past 1 Month) No 08/28/2020 6:45 PM EDT Blake Baird, FREDA 2. Non-Specific Active Suicidal Thoughts (Past 1 Month) No 08/28/2020 6:45 PM EDT Blake Baird, RN 6. Suicidal Behavior (Lifetime) No 08/28/2020 6:45 PM EDT Blake Baird, FREDA documented as of this encounter Plan of Treatment Upcoming Encounters Date Type Department Care Team (Late st Contact Info) Description 10/30/2024 9:00 AM EDT Office Visit [facility] Internal Medicine [address] [place], [place] [id number] Chandan Koenig PA-C [address] [place] [address] [email or web address] documented as of this encounter Visit Diagnoses Not on filedocumented in this encounter Additional Health Concerns Infection Onset Date Last Indicated Resolved Time CoV-Risk 12/14/2020 12/15/2020 12/25/2020 1:24 AM EST CoV-Exposed Comment:Recent close contact documented in the COVID-19 PCR/PRO order 12/14/2020 12/14/2020 12/29/2020 1:[address] Assessment Noted Time PHQ-2 Depression Total Score: 0 05/13/19 18 11:43 AM EDT documented as of this encounter Care Teams Vanstone Machine Operator Relationship Specialty Start Date End Date Wenceslao Chauhan MD [address] [place] [address] PCP - General 05/02/23 06/12/23 Breana Ruano FNP [address] [address] PCP - General Nurse Practitioner 06/13/23 06/21/23 Chandan Koenig PA-C [address] [place] [address] PCP - General Physician Health Education Director 06/22/23 06/26/23 Chandan Koenig PA-C [address] [place] [address] [email or web address] PCP - General Physician Health Education Director 07/07/23 07/10/23 Chandan Koenig PA-C [address] [place] [address] PCP - General Physician Health Education Director 07/11/23 Roxie Brewer MD [address] [place] [phone] [email or web address] Obstetrics and Gynecology 05/07/21 Jen Ruano MD [address] [place] [phone] Insurance Assigned Provider Internal Medicine 08/01/22 06/12/23 Cira Duncan DO [address] [place] [phone] Physical Medicine and Rehabilitation 08/23/22 Edmundo Burnham MD [address] [place] [phone] Insurance Assigned Provider Internal Medicine 07/11/23 Juan Carlos Mejia MD [address] [place] [phone] Gastroenterology 03/05/24 documented as of this encounter Additional Source Comments The information contained in this document represents components of the legal health record. It is not the complete legal health record.Formerly [facility]
--- OUTSIDE RECORDS SUMMARY | 2024-10-14 18:53 | XMS_ITS | Encounter Summary ---
Author Organization Located Within [facility] Address [address] [place] [phone] Phone Care Team Providers Care Fisher Pot Name Role Phone Roxie Brewer MD Unavailable Cira Duncan DO Unavailable [phone] Chandan Koenig PA-C Primary Care Provider [phone] Edmundo Burnham MD Unavailable [phone] Juan Carlos Mejia MD Unavailable Reason for Visit * Reason Comments Medication Refill Encounter Details Date Type Department Care Team (Late st Contact Info) Description 10/09/2024 Refill [facility] Internal Medicine [address] [place] [address] Kayla Luke, COOK PIE [address] [place] [phone] [email or web address] [email or web address] Refill Social History Tobacco Use Types Packs/Day Years Used Date Smoking Tobacco: Former Cigarettes 0.3 25.9 0 09/24/1998 - 03/2024 Smokeless Tobacco: Never Comments:1-2 cigarettes yuliet y, 1 pack/week Alcohol Use Standard Drinks/Week Comments Yes 1 (1 standard drink = 0.6 oz pur e alcohol) 1-2 glasses of wine/week Child or Family Care Answer Date Record ed Do you have problems with on e of the following making it difficult for you to work, study, or receive health care? No 03/06/2020 Education Answer Date Recorded Are you interested in more education? Not on [place] e 06/02/2022 Are you concerned about learning? Not on file 06/02/2022 No 06/02/2022 No 06/02/2022 Food Answer Date Recorded Within the past [...] appointments or from getting medications? No 03/06/2020 Digital Access Answer Date Recorded No 06/28/2022 No 06/28/2022 Reliable internet access at home? Not on file 06/28/2022 Device with a working camera? Not on file Intimate Partner Violence Answer Date R ecorded Are you denied basic needs s uch as food, clothing, or medical care? No 05/03/2024 In the past 12 months have y ou been in a relationship with a person who hurts, threatens, or tries to control you? No 05/03/2024 Are you denied basic needs s uch as food, clothing, or medical care? No 05/03/2024 In the past 12 months have y ou been in a relationship with a person who hurts, threatens, or tries to control you? 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 * Pau Monsalve CMA - 10/09/2024 3:18 PM EDT Images from the original note were not included. Rx Care Gap Status - Instructions for Clinical Staff (prescriber discretion applies): > Mismatch review guide > Check PDMP for all controlled medication requests. Visit Info Last visit: 07/15/2024 Chandan Koenig PA-C - Internal Medicine [facility] > Requested f/u: Return in about 2 months (around 09/14/2024) for Annual physical. Upcoming visit: 10/30/2024 Chandan Koenig PA-C - Internal Medicine [facility] ACTIONS TAKEN BY Pau Monsalve CMA - Checked PDMP/[place]PAT. Non-Opioid Controlled Substance With PDMP Rx Protocol - clonazepam Renewal is at prescriber discretion. Visit in the past 12 months: Yes documented in this encounter Plan of Treatment Upcoming Encounters Date Type Department Care Team (Late Contact Info) Description 10/30/2024 9:00 AM EDT Office Visit [facility] Internal Medicine [address] [place] [address] Chandan Koenig PA-C [address] [place] [address] [email or web address] documented as of this encounter Visit Diagnoses Not on filedocumented in this encounter Additional Health Concerns Assessment Noted Time PHQ-9 Depression Total Score: 13 025 2:34 PM EDT PHQ-2 Depression Total Score: 4 07/10/19 25 2:34 PM EDT documented as of this encounter Care Teams Fisher Pot Relationship Specialty Start Date End Date Chandan Koenig PA-C [address] [place] [address] PCP - General Physician Combination Technician 07/11/23 Roxie Brewer MD [address] [place] [phone] Obstetrics and Gynecology 05/07/21 Cira Duncan DO [address] [place] [phone] Physical Medicine and Rehabilitation 08/23/22 Edmundo Burnham MD [address] [place] [phone] Insurance Assigned Provider Internal Medicine 07/11/23 Juan Carlos Mejia MD [address] [place] [phone] Gastroenterology 03/05/24 documented as of this encounter Additional Source Comments The information contained in this document represents components of the legal health record. It is not the complete legal health record.Loc[facility]
--- OUTSIDE RECORDS SUMMARY | 2024-10-14 18:53 | XMS_ITS | Encounter Summary ---
Author Organization [facility] Address [address] [place] [address] Phone Care Team Providers Care Salt Lifter Name Role Phone Roxie Brewer MD Unavailable [phone] Cira Duncan DO Unavailable [phone] Chandan Koenig PA-C Primary Care Provider Edmundo Burnham MD Unavailable [phone] Juan Carlos Mejia MD Unavailable [phone] Encounter Details Date Type Department Care Team (Late st Contact Info) Description 10/14/2024 Orders Only [facility] Internal Medicine [address] [place] [address] Provider, MD Dee [address] [place] [address] Social History Tobacco Use Types Packs/Day Years [...] 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 [place] Internal Medicine [address] [place], [place] [phone] Chandan Koenig PA-C [address] [place] [address] [email or web address] documented as of this encounter Procedures Procedure Name Priority Date/Time Associated Diagnosis Comments OUTSIDE XR CHEST REPORT ONLY Routine 10/14/2024 2:46 PM EDT documented in this encounter Results * Outside XR??Chest Report Only (10/14/2024 2:46 PM EDT) us Historical Provider MD BENNETT XR CHEST Final Res ult documented in this encounter Visit Diagnoses Not on filedocumented in this encounter Additional Health Concerns Assessment Noted Time PHQ-9 Depression Total Score: 13 025 2:34 PM EDT PHQ-2 Depression Total Score: 4 07/10/19 25 2:34 PM EDT documented as of this encounter Care Teams Salt Lifter Relationship Specialty Start Date End Date Chandan Koenig PA-C [address] [place] [address] [email or web address] PCP - General Physician Rabble Furnace Tender 07/11/23 Roxie Brewer MD [address] [place] [address], [address] [address] [email or web address] Obstetrics and Gynecology 05/07/21 Cira Duncan DO [address] [place] [phone] Physical Medicine and Rehabilitation 08/23/22 Edmundo Burnham MD [address] [place] [address] [email or web address] Insurance Assigned Provider Internal Medicine 07/11/23 Juan Carlos Mejia MD [address] [place] [address] [place] [address] [place] [phone] Gastroenterology 03/05/24 documented as of this encounter Additional Source Comments The information contained in this document represents components of the legal health record. It is not the complete legal health record.[facility]
--- OUTSIDE RECORDS SUMMARY | 2024-10-14 18:53 | XMS_ITS | Encounter Summary ---
Author Organization [facility] Address [address] [place] [address] Phone Care Team Providers Care Sports Medicine Specialist Name Role Phone Roxie Brewer MD Unavailable [phone] Cira Duncan DO Unavailable [phone] Chandan Koenig PA-C Primary Care Provider Edmundo Burnham MD Unavailable [phone] Juan Carlos Mejia MD Unavailable Encounter Details Date Type Department Care Team (Late st Contact Info) Description 09/08/2023 Procedure Pass [facility] [place] [address] Social History Tobacco Use Types Packs/Day Years Used Date Smoking Tobacco: Every Day Cigarettes 0.3 23 Started: 09/24/1998; Last attempted to quit: 04/23/2021 Smokeless Tobacco: Never Comments:2-3 cigarettes yuliet y, 1 pack/week Alcohol Use Standard Drinks/Week Comments Not Currently [...] Intimate Partner Violence Answer Date R ecorded Denied Basic Needs Not on file 07/10/2023 In the past 12 months have y ou been in a relationship with a person who hurts, threatens, or tries to control you? No 07/10/2023 Worried food would run out Not on file 07/09 In the past 12 months have y ou been in a relationship with a person who hurts, threatens, or tries to control you? 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 Not on file Not on file documented as of this encounter Plan of Treatment Upcoming Encounters Date Type Department Care Team (Late st Contact Info) Description 10/30/2024 9:00 AM EDT Office Visit [facility] Internal Medicine [address] [facility] [place] [address] Chandan Koenig PA-C [address] [place] [address] documented as of this encounter Visit Diagnoses Not on filedocumented in this encounter Additional Health Concerns Assessment Noted Time PHQ-9 Depression Total Score: 24 024 2:00 PM EDT PHQ-2 Depression Total Score: 07/10/19 24 2:00 PM EDT documented as of this encounter Care Teams Sports Medicine Specialist Relationship Specialty Start Date End Date Chandan Koenig PA-C [address] [place] [address] PCP - General Physician Wet Milling Wheel Operator 07/11/23 Roxie Brewer MD [address] [place] [email or web address] Obstetrics and Gynecology 05/07/21 Cira Duncan DO [address] [place] [phone] Physical Medicine and Rehabilitation 08/23/22 Edmundo Burnham MD [address] [place] [address] Insurance Assigned Provider Internal Medicine 07/11/23 Juan Carlos Mejia MD [address] [place] [phone] Gastroenterology 03/05/24 documented as of this encounter Additional Source Comments The information contained in this document represents components of the legal health record. It is not the complete legal health record.[facility]
--- OUTSIDE RECORDS SUMMARY | 2024-10-14 18:53 | XMS_ITS | Patient Health Record ---
Author Organization [facility] Address [address] [place] [address] Care Team Providers Care Home Connect Lpn Name Role Phone Ruano Breana TEJEDA Primary Care Provider Miryam Mejia Jr Juan Carlos Unavailable Allergies Allergen (clinical drug ingredient) Drug/Non Drug Allergy documented on EMR Reaction Allergy Type Onset Date Status guaifenesin Mucinex Unknown Drug Allergy Activ e liquid alupent (uncoded) Unknown Allergy Active Results Component Value Reference Range Notes GI PANEL Reviewed date:01/17/2024 07:37:11 AM Interpretation: Performing Lab:[facility], [address] [place] [phone] Notes/Report: Campylobacter Not Detected Not Detect. Plesiomonas [...] is performed by Multiplexed PCR, utilizing the [employer] Array. Leukocytes Stool Qualitative Reviewed date:01/17/2024 07:36:45 AM Interpretation: Performing Lab:[address] [phone] Notes/Report: Leukocytes Stool Qualitative NEGATIVE NEGATIVE Ova and Parasite Reviewed date:01/23/2024 03:14:15 PM Interpretation: Performing Lab:[address] [phone] Notes/Report: Ova and Parasite SEE NOTE OVA AND PARASITES, CONC AND PERM SMEAR Micro Number: [id number] Test Status: Final Specimen Source: Stool Specimen [...] infection. For additional information, please refer to https://education.VeriTran/faq/YOZ710 (This link is being provided for informational/ educational purposes only.) THIS TEST WAS PERFORMED AT: [facility] [address] [place] [phone] CHUYITA CHAHAL MD CDiff Gene PCR Reviewed date:01/17/2024 07:36:27 AM Interpretation: Performing Lab:[facility], [address] [place] [phone] Notes/Report: CDiff Gene PCR POSITIVE Negative Additional C. difficile toxin testing to be performed. Additional C. difficile toxin testing to be performed. CDiff Gene PCR POSITIVE Negative Additional C. difficile toxin testing to be performed. Additional C. difficile toxin testing to be performed. CDiff Toxin Reviewed date:01/17/2024 07:36:35 AM Interpretation: Performing Lab:[facility], [address] [place] [phone] Notes/Report: CDiff Toxin Negative Negative CDIFF Interpretation SEE NOTE Likely C. difficile colonization. Continue contact precautions. CDiff Gene PCR Reviewed date:04/04/2024 07:00:11 PM Interpretation: Performing Lab:[facility], [address] [place] [phone] Notes/Report: CDiff Gene PCR POSITIVE Negative Additional C. difficile toxin testing to be performed. CDiff Toxin Reviewed date:04/04/2024 07:00:25 PM Interpretation: Performing Lab:[facility], [address] [place] [phone] Notes/Report: CDiff Toxin Negative Negative CDIFF Interpretation SEE NOTE Likely C. difficile colonization. Continue contact precautions. Complete Blood Count Auto Di ff Reviewed date:04/26/2024 01:38:04 PM Interpretation: Performing Lab:[facility], [address] [place] [phone] Notes/Report: White Blood Count 4.9 4.8-10.8 X10*3/uL Red Blood Count 3.99 4.20-5.50 X10*6/uL Hemoglobin 12.5 12.0-16.0 g/dl Hematocrit 36.8 37.0-47.0 % Mean Corpuscular Volume 92.2 80.0-98.0 fL Mean Corpuscular Hemoglobin 31.3 27.0-33.0 pg Mean Corpuscular HGB Conc 34.0 31.0-35.0 g/dl Red Cell Distribution Width 12.7 11.0-16.0 % Platelet Count 201 160-400 X10*3/uL Mean Platelet Volume 8.6 9.4-12.3 fL Neutrophils Percent Auto 60.4 45-73 % Imm Gran Pct Auto 0.2 0.0-0.4 % Lymphocytes Percent Auto 28.9 20-40 % Monocytes Percent Auto 7.3 2-11 % Eosinophils Percent Auto 2.8 0-4 % Basophils Percent Auto 0.4 0-2 % NRBC Pct Auto 0.0 0.0-0.2 /100WBC Neutrophils Absolute Auto 3.0 2.0-8.3 x10*3/u L Imm Gran Abs Auto 0.01 0.00-0.03 X10*3/uL Lymphocytes Absolute Auto 1.4 1.2-4.9 X10*3/u L Monocytes Absolute Auto 0.4 0.1-1.2 X10*3/uL Eosinophils Absolute Auto 0.1 0.0-0.4 X10*3/u L Basophils Absolute Auto 0.0 0.0-0.2 X10*3/uL NRBC Abs Auto 0.000 0.0-0.012 X10*3/uL IRON PROFILE Reviewed date:04/26/2024 01:37:48 PM Interpretation: Performing Lab:[facility], [address] [place] [phone] Notes/Report: Iron 157 30-160 mcg/dL Total Iron Binding Capacity 301 228-428 mcg/dL Percent Iron Saturation 52 15-50 % Unsaturated Iron Binding 144 Ferritin Reviewed date:04/26/2024 01:37:16 PM Interpretation: Performing Lab:[facility], [address] [place] [phone] Notes/Report: Ferritin 85 10-250 ng/mL Vitamin B12 Reviewed date:04/26/2024 01:37:04 PM Interpretation: Performing Lab:[facility], [address] [place] [phone] Notes/Report: Vitamin B12 422 200-900 pg/mL NORMAL 200-900 PG/ML INDETERMINATE 160-199 PG/ML DEFICIENT < 160 PG/ML Reason For Referral No Information Medications Medication SIG (Take, Route, Frequency, Duration) Notes Start Date End Date Status Progesterone 100 MG 1 capsule at bedtime Orally Once a day Active oxyCODONE HCl 5 MG/5ML 5 ml as needed Or ally every 6 hrs Active clonazePAM 0.5 MG 1 tablet at bedtime Orally Once a day Active Nortriptyline HCl 10 MG TAKE 2 CAPSULES BY MOUTH EVERY NIGHT AT BEDTIME Oral for 30 Active Propranolol HCl 60 MG 1 tablet Orally th ree times a day Active Cholestyramine 4 GM/DOSE 1 scoop Orally Once a day for 30 days 11/24/2022 Active Lomotil 2.5-0.025 MG 1 tablet as needed Orally Four times a day 01/12/2024 Active traZODone HCl 150 MG Oral for 30 Days Active Diphenoxylate-Atropine 2.5-0.025 MG 1 tablet as needed Orally Four times a day for 30 days 07/09/2024 Active Vivelle-Dot 0.075 MG/24HR 1 PATCH TOPICA LLY EVERY MONDAY AND MONDAY Transdermal for 28 Days Active Immunizations Vaccine Route Administration Date Status Comme nts Influenza Unknown 04/19/2021 Refused Influenza Unknown 06/05/2023 Refused Social History Tobacco Use: Social History Observation Description Date Details (start date - stop date) Former Smoker NA - NA Alcohol Screen Question Answer Notes Did you have a drink containing alcohol in the p ast year? No Points 0 Interpretation Negative Tobacco Control (Standard) Question Answer Notes Tobacco use: Former smoker How long has it been since you last smoked? 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 Height 63 in 04/25/2024 Weight is down from 133 in 2023. Blood pressure systolic 111 mm Hg 04/25/2024 Weig ht is down from 133 in 2023. Weight 109 lbs 04/25/2024 Weight is down from 133 in 2023. BMI 19.31 kg/m2 04/25/2024 Weight is down from 133 in 2023. Encounters Encounter Location Date Provider Diagnosis [facility] [address] [place] [phone] 04/25/2024 Juan Carlos Mejia Jr Diarrhea, unspecified type R19.7 and Abdominal bloating R14.0 [facility] [address] [place] [phone] 01/12/2024 Juan Carlos Mejia Jr Diarrhea, unspecified type R19.7 [facility] [address] [place] [phone] 01/17/2024 Juan Carlos Mejia Jr [facility] [address] [place] [phone] 04/04/2024 Juan Carlos Mejia Jr History of Clostridioides difficile infection Z86.19 and Diarrhea R19.7 [facility] [address] [place] [phone] 04/24/2024 Juan Carlos Mejia Jr Radiation enteritis K52.0 and Anemia, unspecified type D64.9 [facility] [address] [place] [phone] 04/25/2024 Juan Carlos Mejia Jr [facility] [address] [place] [phone] 07/09/2024 Juan Carlos Mejia Jr Diarrhea, unspecified type R19.7 Assessments Encounter Date Diagnosis (ICD Code) Assessment Notes Treatment Notes Treatment Clinical Notes Section Notes 04/25/2024 Diarrhea, unspecified type (ICD-10 - R19.7) Handwashing material was printed We discussed her symptoms today. We are concerned about her weight loss, and diarrheal symptoms. She will try to follow a high calorie diet, C. difficile testing will be arranged. Follow-up will be in 6 months. She will let us know how she is doing in a month. 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 We are concerned about her weight loss, and diarrheal symptoms. She will try to follow a high calorie diet, C. difficile testing will be arranged. Follow-up will be in 6 months. She will let us know how she is doing in a month. Plan Of Treatment Pending Test Test Name Order Date LIVER PROFILE 04/19/2021 LIVER PROFILE 04/14/2023 LIPASE 04/14/2023 LIPASE 04/19/2021 TSH (THYROID STIMULATING HORMONE) 2023 IRON + IBC (FE) 11/24/2022 IRON + IBC (FE) 06/05/2023 IRON + IBC (FE) 06/01/2022 IRON + IBC (FE) 04/24/2024 FERRITIN 11/24/2022 FERRITIN 06/05/2023 FERRITIN 06/01/2022 FERRITIN 04/24/2024 CRP 04/19/2021 B12 04/24/2024 B12 07/21/2022 B12 11/24/2022 B12 06/05/2023 B12 06/01/2022 FOLATE 06/01/2022 FOLATE 11/24/2022 CBC w/o DIFF 11/24/2022 CBC w/o DIFF 06/01/2022 CBC w/o DIFF 05/26/2022 CBC w/o DIFF 04/14/2023 CBC w/o DIFF 07/21/2022 CBC w/o DIFF 04/19/2021 CBC w/o DIFF 06/05/2023 SED RATE (ESR) 04/19/2021 STOOL WBC 04/25/2022 STOOL WBC 01/12/2024 STOOL WBC 04/14/2023 IgA 05/26/2022 TRANSGLUTAMINASE AB IGA 05/26/2022 GIARDIA AG, STOOL EIA 04/21/2021 OVA & PARASITES (O&P) 04/14/2023 OVA & PARASITES (O&P) 04/21/2021 OVA & PARASITES (O&P) 04/25/2022 OVA & PARASITES (O&P) 01/12/2024 STOOL CULTURE FOR YERSINIA 04/21/2021 STOOL CULTURE VIBRIO 04/21/2021 TSH REFLEX FREE T4 05/26/2022 C DIFFICILE RFLX PCR 01/12/2024 CALPROTECTIN, STOOL 04/14/2023 CALPROTECTIN, STOOL 04/25/2022 CBC & MANUAL DIFFERENTIAL 04/24/2024 CDiff with Reflex to PCR 04/21/2021 CDiff with Reflex to PCR 04/04/2024 XR abdomen 3V 04/14/2023 Stool Culture 04/21/2021 CDiff Toxin 04/04/2024 GI PANEL 04/25/2022 Next Appt Details Provider Name:Juan Carlos Celia lopez , 10/28/2024 11:00:00 AM, [address] [facility], [address], [place], [address], Insurance Providers Payer Name Payer Address Payer Phone Subscriber Number Group Number Insured Name Patient Relationship to Insured Coverage Start Date Coverage End Date MEDICARE OF [place] [address] [place] [address] [phone] [id number] RICCARDO VARGAS Self - patient is the insured MEDICAID OF [facility] [address] [place] [address] [phone] [id number] RICCARDO VARGAS Self - patient is the insured Medical (General) History Medical History History ICD Code cervical cancer status post chemotherapy / radiation therapy Anxiety Radiation colitis/enteritis, 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 Biopsies from 09/26 colonoscopy: nonspecific colitis. Previous treatment with mesalamine and steroids because of possible IBD prior to her diagnosis of radiation enteritis/colitis 04/27 Surgical History Surgery Date(Month/Year) back surgery 01/19/23 Ileocolonic resection second kavon to small bowel obstruction/radiation enteritis 04/27 Tendinitis, right arm Cholecystectomy cervical cancer 2019 Hospitalization History Reason Date(Month/Year) Hospitalization with small b owel obstruction. Ileocolonic resection, pathology consistent with radiation therapy, not inflammatory bowel disease. 04/27
--- OUTSIDE RECORDS SUMMARY | 2024-10-14 18:53 | XMS_ITS | Encounter Summary ---
Author Organization [facility] Address [address] [place] [address] Phone Care Team Providers Care Laundry Agent Name Role Phone Roxie Brewer MD Unavailable [phone] Jen Ruano MD Unavailable [phone] Cira Duncan DO Unavailable [phone] Wenceslao Chauhan MD Primary Care Provider [phone] Breana Ruano CONCRETE CRAFTSMAN Primary Care Provider [phone] Chandan Koenig-C Primary Care Provider [phone] Chandan Koenig-C Primary Care Provider [phone] Chandan Koenig-C Primary Care Provider [phone] Edmundo Burnham MD Unavailable [phone] Juan Carlos Mejia MD Unavailable Encounter Details Date Type Department Care Team (Late st Contact Info) Description 02/10/2020 Procedure Pass [facility], Ct Scan - [address] [address] Social History Tobacco Use Types Packs/Day Years Used Date Smoking Tobacco: Every Day Cigarettes Smokeless Tobacco: Never Comments:2 cigarettes daily, using vape 4mg nicotene Alcohol Use Standard Drinks/Week Comments Not Currently 0 (1 standard drink = 0.6 oz pur e alcohol) none currently Comments No Sex and Gender Information Value Date Recorded Sex Assigned at Female 02/10/2020 2:29 PM EST Legal Sex Female 9:30 PM EDT Gender Identity Female 02/10/2020 2:29 PM EST Sexual Orientation Straight 02/10/2020 2: 29 PM EST 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 Wish to be (Past 1 Month) No 2:28 PM Scarlet Marti RN 2. Non-Specific Active Suici melva Thoughts (Past 1 Month) No 02/10/2020 2:28 PM Scarlet Marti RN 6. Suicidal Behavior (Lifetime) No 2:28 PM Scarlet Marti RN documented as of this encounter Plan of Treatment Upcoming Encounters Date Type Department Care Team (Late st Contact Info) Description 10/30/2024 9:00 AM EDT Office Visit [facility] Internal Medicine [address] [place] [address] Chandan Koenig PA-C [address] [place] [address] [email or web address] documented as of this encounter Visit Diagnoses Not on filedocumented in this encounter Additional Health Concerns Infection Onset Date Last Indicated Resolved Time CoV-Risk 02/06/2020 02/09/2020 02/19/2020 1:2 5 AM EST CoV-Risk 12/14/2020 12/15/2020 12/25/2020 1:24 AM EST CoV-Exposed Comment:Recent close contact documented in the COVID-19 PCR/PRO order 12/14/2020 12/14/2020 12/29/2020 1:[address] Assessment Noted Time PHQ-2 Depression Total Score: 0 05/13/19 18 11:43 AM EDT documented as of this encounter Care Teams Laundry Agent Relationship Specialty Start Date End Date Wenceslao Chauhan MD [address] [place] [address] PCP - General 05/02/23 06/12/23 Breana Ruano FNP 15 [facility] Jose Ramon. [address] [place] [address] PCP - General Nurse Practitioner 06/13/23 06/21/23 Chandan Koenig PA-C [address] [place] [address] PCP - General Physician Dope Firer 06/22/23 06/26/23 Chandan Koenig PA-C [address] [place] [address] PCP - General Physician Dope Firer 07/07/23 07/10/23 Chandan Koenig PA-C [address] [place] [address] PCP - General Physician Dope Firer 07/11/23 Roxie Brewer MD 22 [facility], [address] [place] [address] [email or web address] Obstetrics and Gynecology 05/07/21 Jen Ruano MD [address] [place] [address] [address] [place] [address] [email or web address] Insurance Assigned Provider Internal Medicine 08/01/22 06/12/23 Cira Duncan DO [address] [place] [phone] Physical Medicine and Rehabilitation 08/23/22 Edmundo Burnham MD [address] [place] [address] [email or web address] Insurance Assigned Provider Internal Medicine 07/11/23 Juan Carlos Mejia MD [address] [place] [address] [place] [phone] Gastroenterology 03/05/24 documented as of this encounter Additional Source Comments The information contained in this document represents components of the legal health record. It is not the complete legal health record.[facility]
--- OUTSIDE RECORDS SUMMARY | 2024-10-14 18:54 | XMS_ITS | Encounter Summary ---
Author Organization [facility] Address [address] [place] [id number] Phone Care Team Providers Care Drainage Engineer Name Role Phone Roxie Brewer MD Unavailable [phone] Jen Ruano MD Unavailable [phone] Cira Duncan DO Unavailable [phone] Wenceslao Chauhan MD Primary Care Provider [phone] Breana Ruano CANE FEEDER Primary Care Provider [phone] Chandan Koenig-C Primary Care Provider [phone] Chandan Koenig-C Primary Care Provider [phone] Chandan Koenig-C Primary Care Provider [phone] Edmundo Burnham MD Unavailable [phone] Juan Carlos Mejia MD Unavailable [phone] Encounter Details Date Type Department Care Team (Late st Contact Info) Description 01/18/2021 Ancillary Orders [facility],Outside Imaging [address] [place] [address] System, Provider Not In, [facility] [address] [address] Social History Tobacco Use Types Packs/Day Years Used Date Smoking Tobacco: Every Day Cigarettes 0.1 26.1 Started: 09/24/1998 Smokeless Tobacco: Never Alcohol Use Standard Drinks/Week Comments Not Currently [...] high school, GED, job training, learning the British language, technical skills, or developing parenting skills)? 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 us Provider Not In System PhD IMG OUTSIDE IMAGING W /OUT INTERPRETATION Final Result documented in this encounter Visit Diagnoses Not on filedocumented in this encounter Additional Health Concerns Assessment Noted Time PHQ-2 Depression Total Score: 2 01/15/20 21 1:43 PM EST documented as of this encounter Care Teams Drainage Engineer Relationship Specialty Start Date End Date Wenceslao Chauhan MD [address] [place] [address] [email or web address] PCP - General 05/02/23 06/12/23 Breana Ruano FNP [address] [address] [email or web address] PCP - General Nurse Practitioner 06/13/23 06/21/23 Chandan Koenig PA-C [address] [place] [address] [email or web address] PCP - General Physician Paper Hanger 06/22/23 06/26/23 Chandan Koenig PA-C [address] [place] [address] PCP - General Physician Paper Hanger 07/07/23 07/10/23 Chandan Koenig PA-C [address] [place] [address] PCP - General Physician Paper Hanger 07/11/23 Roxie Brewer MD [address] [place] [phone] [email or web address] Obstetrics and Gynecology 05/07/21 Jen Ruano MD [address] [place] [phone] Insurance Assigned Provider Internal Medicine 08/01/22 06/12/23 Cira Duncan DO [address] [place] [phone] Physical Medicine and Rehabilitation 08/23/22 Edmundo Burnham MD [address] [place] [phone] Insurance Assigned Provider Internal Medicine 07/11/23 Juan Carlos Mejia MD [address] [place] [phone] Gastroenterology 03/05/24 documented as of this encounter Additional Source Comments The information contained in this document represents components of the legal health record. It is not the complete legal health record.[facility]
--- OUTSIDE RECORDS SUMMARY | 2024-10-14 18:54 | XMS_ITS | Clinical Summary ---
Author Organization [facility] Address [address] [place] [id number] Phone Care Team Providers Care Vamp Creaser Name Role Phone Roxie Brewer MD Unavailable Cira Duncan DO Unavailable [phone] Chandan Koenig PA-C Primary Care Provider [phone] Edmundo Burnham MD Unavailable [phone] Juan Carlos Mejia MD Unavailable Allergies Active Allergy Reactions Criticality Noted Date Comments Metaproterenol Low 01/04/2021 Other reaction(s): PALPITATIONS, RASH, childhood reaction Guaifenesin Hives 01/10/2017 Medications simethicone (GAS-X ORAL) Take by mouth 4 (four) times a day. Active diphenoxylate- atropine (LOMOTIL) 2.5-0.025 mg per tablet Take 1 tablet by mouth 4 (four) times a day as needed. 05/28/19 23 Active progesterone (PROMETRIUM) 100 mg capsule Take 1 capsule by mouth every morning. 09/29/19 24 Active ferrous sulfate (IRON ORAL) Take 325 mg by mouth daily with breakfast. Active VIVELLE-DOT 0.075 mg/[address] 1 patch onto the skin 2 (two) times a week. Active sertraline (ZOLOFT) 100 MG tablet Take 100 mg by mouth nightly at bedtime. at bedtime. 05/06/19 25 Active buPROPion (WELLBUTRIN SR) 100 MG SR 12 hr tablet Take 100 mg by mouth 2 (two) times a day. 05/06/19 25 Active eszopiclone (LUNESTA) 2 MG Tab Take 2 mg by mouth nightly at bedtime as needed. 05/13/19 25 Active mirtazapine (REMERON) 7.5 MG tablet Take 7.5 mg by mouth nightly at bedtime. 05/06/19 25 Active Lactobacillus acidophilus (PROBIOTIC ORAL) Take by mouth. Culturelle Active magnesium 250 mg Tab Take by mouth. Active cholecalcifero l, vitamin D3, (VITAMIN D3 ORAL) Take by mouth. Active ascorbic acid (VITAMIN C ORAL) Take by mouth. Active oxyCODONE 5 MG immediate release tabletIndicati ons:Chronic radiation cystitis Take 1 tablet (5 mg total) by mouth every 8 (eight) hours as needed for pain (specific location in comments) (chronic radiation cysitis). Partial fill ok 45 tablet 09/24/19 25 Active nortriptyline (PAMELOR) 10 MG capsule TAKE 2 CAPSULES(20 MG) BY MOUTH EVERY NIGHT AT BEDTIME 60 capsule 11 09/26/19 25 Active clonazePAM (KLONOPIN) 1 MG tablet TAKE 1 TABLET(1 MG) BY MOUTH TWICE DAILY NEEDED FOR ANXIETY 60 tablet 10/10/19 25 Active nortriptyline (PAMELOR) 10 MG capsule TAKE 2 CAPSULES(20 MG) BY MOUTH EVERY NIGHT AT BEDTIME 60 capsule 09/25/19 24 025 Discontinued clonazePAM (KLONOPIN) 1 MG tablet TAKE 1 TABLET(1 MG) BY MOUTH TWICE DAILY NEEDED FOR ANXIETY 60 tablet 09/05/19 25 025 Discontinued oxyCODONE 5 MG immediate release tabletIndicati ons:Chronic radiation cystitis Take 1 tablet (5 mg total) by mouth every 8 (eight) hours as needed for pain (specific location in comments) (chronic radiation cysitis). Partial fill ok 45 tablet 09/05/19 25 025 Discontinued(Re order) Active Problems Problem Noted Date Diagnosed Date Malignant neoplasm of cervix 05/16/2024 Assessment & Plan (05/16/2024 2:15 PM EDT): Patient with a history of cervical cancer who has been followed by [facility]. Patient notes that she has been continuously losing weight and notes that this is becoming an issue for her. She states that she does not want to get down to where she was at 1 point in time. She has been using the very high calorie [employer] shakes which have been going well. She is asking for a prescription for this. A prescription has been sent to the [facility] although patient does not realize that this may not be covered by insurance. C. difficile colitis 04/15/2024 Assessment & Plan (04/15/2024 3:02 PM EDT): Patient has had 1 episode of C. difficile which was caused from antibiotics used for treatment of her ear infection. She was treated for C. difficile at that time. Since then she was recently treated with amoxicillin for a UTI and developed copious amounts of diarrhea found to have C. difficile. She was placed on vancomycin 250 mg 4 times daily for total of 15 days. She will follow-up with GI this month. I did advise that she may inquire about a fecal transplant which is typically done through infectious disease. Patient is interested in this and will discuss this with her GI physician. -Patient to continue vancomycin 250 mg 4 times daily times a total of 15 days she is currently on day 11. Anxiety and depression 03/20/2024 Assessment & Plan (07/15/2024 2:13 PM EDT): She recently lost one of her best friend's from suicide. She notes it was hard, and had the last week. PHQ9 score from 07/09 was 13. She notes that her anxiety is still prevalent but it has improved and her depressive symptoms have also improved. She denies any SI or HI. -she follows with Bea her therapist, twice a week- but wants in person not virtual - follows with psychiatrist (Rosibel) for custodial prescribing with her next appt in August 2024 -She is on Wellbutrin 100mg bid , klonopin 1mg bid prn, and zoloft 100mg nightly which she will continue - I have asked the patient to reach out to psychiatry to inquire if she should be increased either to her Wellbutrin or Zoloft. -She was advised that if she develops any thoughts of self-harm and she is to call [facility] crisis or go to her nearest emergency room Assessment & Plan (05/16/2024 2:15 PM EDT): Patient with a history of anxiety and depression who I have been going into partial hospitalizations as well as being seen by psychiatry who recommended that the patient go into [facility] for further care secondary to passive SI thoughts. Patient had been started on Zoloft 25 mg daily and increase to 50 mg daily. Ultimately during her hospital stay patient was increased to 75 mg daily and now currently on 100 mg daily of Zoloft. He was also started on Wellbutrin and increased to 100 mg p.o. twice daily. She states that this combination is working well and she is feeling better. She is also on clonazepam 1 mg p.o. twice daily as needed. She was seen by her therapist Zohreh and has an upcoming appointment in June with a psychiatrist for long-term psychiatric prescribing. Her PHQ 9 score today was noted at 20. However patient states that she is doing much better. I will follow-up with her after her psychiatric appointment in June however I did advise the patient that I am here if she does need me sooner and she also has [facility] number and [facility] crisis number in the event of emergencies. Assessment & Plan (04/15/2024 3:01 PM EDT): Patient is working closely with [facility] crisis as well as psychotherapy over in [place]. She does have an upcoming appointment scheduled with psychiatry later this month which she is really looking forward to. She is on Zoloft 50 mg daily which she has tolerated the medication well. She mentions that she is doing good on this medicine and notes that she has more good days than bad days now. She is also on Klonopin 1 mg twice daily as needed for anxiety. She has better about avoiding situations that could potentially set her back. She denies any SI or HI -Continue Klonopin 1 mg p.o. twice daily as needed -Continue Zoloft 50 mg p.o. daily -We will follow-up in 1 month after her appointment that is scheduled on 05/03 with psychiatry. She is to continue therapy. She was advised that if she develops worsening symptoms to reach out to [facility]. Chronic, continuous use of opioids 03/04/2024 Assessment & Plan (03/04/2024 5:33 PM EST): Patient requires U-Tox on her next visit, it would have been done on this visit however patient was having a mental breakdown and needed to go be seen at [facility]. 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 Patient states that these has been going on for a little bit of time. She has been seen by therapist she has seen them roughly about 3 times with the last 1 being 2 weeks ago. Today during our conversation she starts having a breakdown and is crying. She has never been on antidepressants. We did call [facility] while she was here in the office and I was present for part of the conversation. At this time patient will go to [facility] to do a complete intake. They will then monitor her for 3 days. Patient was advised to reach back out to me to let me know how things were going. I mentioned that at any point in time I could call for a well check to be done with the police department. I will see the patient back in 1 week. -I will start sertraline 25 mg p.o. daily -Patient had done a [facility] intake and that patient will be seen today. -[facility] behavioral health referral Dr. Pool Need for hepatitis C screening test 07/10/2023 Assessment & Plan (07/10/2023 4:28 PM EDT): Blood test for screening Healthcare maintenance 07/10/2023 Assessment & Plan (07/10/2023 4:29 PM EDT): Patient here to establish care for new physical. Patient states overall she is doing well with the exception of her anxiety as she recently ran out of her Klonopin. We had a long discussion about her anxiety and insomnia. We also discussed tapering her Klonopin and oxycodone. She has signed a pain contract. And toxicology screen pending. -Mammogram -GI referral for colonoscopy -Labs to be completed toxicology, TSH, CBC and CMP -TD vaccine Screening for human immunodeficiency virus 07/09 Assessment & Plan (07/10/2023 4:28 PM EDT): Screening blood test Left bundle branch block 05/23/2023 Assessment & Plan (10/27/2023 1:03 PM EDT): She has upcoming appointments with Dr. Zeng Assessment & Plan (09/08/2023 10:19 AM EDT): As mentioned I am going to get an echo and an MCOT monitor I will follow-up with her thereafter nothing specific needs to be done at this time. Assessment & Plan (07/10/2023 4:23 PM EDT): Patient due to see Cardiology for new LBBB on EKG during her visit at [facility] in May. Assessment & Plan (05/23/2023 7:32 PM EDT): Patient noted to have a LBBB and has not been seen by cardiology. Her mother has a hx of cardiac surgery. -cardiology referral for eval Insomnia 05/02/2023 Assessment & Plan (05/16/2024 2:15 PM EDT): After patient's [facility] admission for roughly a week she saw Rosa Rice NP during that timeframe and she had adjustments made to her medications. Her trazodone was decreased from 150 mg nightly to 75 mg nightly and she was started on Lunesta 2 mg nightly. Assessment & Plan (03/04/2024 5:32 PM EST): Patient was seen by Dr Antonio who discontinued the doxepin and started trazodone 100 mg nightly and then this was increased to 150 mg nightly. She states that this has shown some improvement in her sleep patterns. She does have a follow-up coming up in March. Assessment & Plan (07/10/2023 4:24 PM EDT): Continue doxepin 6 mg p.o. nightly Resend referral for sleep medicine with Dr. Antonio Assessment & Plan (05/23/2023 7:32 PM EDT): Patient has tried multiple medications without relief. She recently tried hydroxyzine without relief. She has been on 25mg of seroquel prn but EKG in the office revealed a QTc of 494 and LBBB. -decision was made to d/c seroquel due to elevated QTc - start doxepin 6mg nightly prn -referral to Sleep medicine with Dr George Assessment & Plan (05/02/2023 12:59 PM EDT): Patient with a long standing dx of insomnia who has tried multiple agents. She currently remains on seroquel 50mg qhs, nortriptyline nightly. Her last med of Belsomra she stopped after she developed side effect significant for vivid dreams and thoughts of self harm. She currently denies SI or HI. We discussed at length her prior medications she has tried. I discussed with Dr Rich who agreed hydoxyzine trial. -patient to start hydroxyzine 50mg qhs -if she develops any symptoms of SI or HI she was advised to get help immediately -Behavioral consult -psych for taper of meds -follow up for med check in two weeks. Chronic radiation cystitis 08/05/2020 Assessment & Plan (07/15/2024 2:14 PM EDT): Patient asked for her refill of her oxycodone. She does have an opiate agreement signed and [employer] was verified. Assessment & Plan (05/16/2024 2:15 PM EDT): Patient with a history of chronic radiation cystitis who is maintained with oxycodone 5 mg p.o. every 8 hours as needed. During her last U tox she was noted to be positive for oxycodone but also positive for cocaine. I discussed this with the patient and stated that she had had brownies that were made from somebody else and stated that this could have been in the mixture. I will obtain another U tox. Assessment & Plan (01/15/2024 7:44 AM EST): Asymptomatic at this time Assessment & Plan (07/10/2023 4:26 PM EDT): With a history of cervical cancer and has undergone radiation and left with radiation cystitis. She follows with Dr. Appiah. She is on oxycodone 5 mg p.o. every 8 hours as needed pain. -We have discussed tapering of the oxycodone and will begin at next appt, we will do a slow taper -Opioid contract signed -Tox screen pending -[employer] verified last oxy script in 06/22 for quant 15 tabs Assessment & Plan (05/23/2023 7:34 PM EDT): Patient with a hx of cervical cancer and radiation-cystitis who follows with oncology and urology. -[employer] verified on 05/08 oxycodone 5mg quant 28 and Klonopin 0.5mg quant 15 on 05/01 -oxycodone 5mg q6h prn quant 15 -controlled substance agreement signed. Patient acknowledges. Thyroid nodule 04/26/2019 Assessment & Plan (07/10/2023 4:23 PM EDT): Patient noted to have thyroid nodule with last ultrasound being a year ago. _US thyroid Resolved Problems Problem Noted Date Diagnosed Date Resolved Date Bilateral impacted cerumen 12/04/2023 0 03/04/2024 Assessment & Plan (12/04/2023 6:59 PM EDT): Patient noted to have a cerumen impaction bilat. Patient notes pain which I think part of it is from the cerumen but the other is from congestion. Added decongestant Shortness of breath 09/08/2023 03/04/19 25 Assessment & Plan (01/15/2024 7:44 AM EST): Asymptomatic at this time echo did not show any significant structural heart disease Elevated blood pressure read ing without diagnosis of hypertension 08/23/2022 07/10/2023 Status post small bowel resection 05/12/2021 07/10/2023 Chronic bilateral low back p ain with bilateral sciatica 09/25/2020 07/10/2023 Radiation colitis 08/05/2020 05/23/2023 History of cervical cancer 08/05/2020 0 05/16/2024 Assessment & Plan (01/15/2024 7:43 AM EST): She has had extensive surgery at this point things sound stable with the exception of her difficulty eating Assessment & Plan (10/27/2023 1:03 PM EDT): Recent findings on her last CT scan she does have an appointment scheduled with her oncologist on Sunday 10/29 to determine further workup. 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 Patient mentions she was seen in the [facility] and underwent a strep and cepheid multiplex which were negative. CXR was negative. She was found to have a otitis media and bronchitis. She was given augmentin and prednisone which she completed. She presents today with continued symptoms but worsen cough. No fevers or chills. -Prednisone 40mg po daily x 5 days -doxycycline 100mg bid x 7 days -theraflu packets as directed on box -decongestant to help with blocked eustachian tube -patient to f/u on Mon on how she is doing. Assessment & Plan (02/01/2019 2:04 PM EST): For the cough patient cannot take guaifenesin and so cannot take Robitussin-AC. Patient might of done well with Tylenol with codeine but she said that that would not be effective. Patient also previously tried on benzonatate, we will call in Hycodan 5 mL 4 times daily PRN, caution driving. 200 mils, no refills. Eczema 05/02/2018 07/10/2023 Acute bronchitis 01/16/2018 03/19/2019 Assessment & Plan (03/12/2019 1:20 PM EST): Viral bronchitis causing cough congestion, reduce cough with Hycodan cough syrup, bolster immune system with vitamin C and zinc, Z-Elliot really just for bacterial involved inflammation of the lungs. Assessment & Plan (02/01/2019 2:03 PM EST): This patient with her smoking history with 2 weeks history of persisting cough and right rales [place], we should assess chest x-ray for any infiltrates or masses, given the protracted history will Rx a Z-Elliot to help with convalescence. At this point she can use her nebulizer but we would like her to particularly hold off on cigarette smoking, use lozenges or patches instead. Anxiety state 05/12/2017 07/15/2024 Assessment & Plan (03/04/2024 5:33 PM EST): Continue Klonopin 1mg bid patient needs this refilled [employer] verified prescription sent to the pharmacy Assessment & Plan (10/27/2023 1:04 PM EDT): Patient with increasing anxiety especially given her recent findings on her CT scan. He is also having some difficulty with sleeping. Had been on Klonopin 0.5 mg in the morning and 1 mg at night. I think it is appropriate at this point in time to increase her Klonopin to 1 mg twice daily. I have checked [employer] prescription sent to the pharmacy. Assessment & Plan (09/08/2023 10:19 AM EDT): Definitely present but stable Assessment & Plan (07/10/2023 4:27 PM EDT): Patient with a long hx of anxiety and has been on klonopin. She has run out of klonopin and comes in shaking with increase anxiety. -klonopin 0.5mg (1 tab in am and 2 tabs nightly ) -patient away of tapering, we discussed at length and we started tapering while she was at [place]. -[employer] on waiting list for psychiatry Assessment & Plan (05/23/2023 7:33 PM EDT): Continue klonopin [facility] intake completed last week pt is awaiting a psychiatrist to be assigned Assessment & Plan (05/02/2023 1:17 PM EDT): Longstanding anxiety managed on klonopin. She mentions her anxiety is managed on the klonopin. We discussed how the increase dose of the klonopin could be adding to her insomnia. We discussed about weaning her off the medication and seeing psychiatry due to the her insomnia, anxiety, and life events. She lost her mother, brother, cancer diagnosis and taking care of her sisters children. -start taper of klonopin to 0.5mg in am and 1mg at night. Patient is in agreement to start. (Script sent to pharmacy -klonopin 0.5 mg tablets 0.5mg in am and 1mg at night ) -[employer] verified last klonopin script 04/20- 1mg tablets quant 22. -behavorial referral -psych Assessment & Plan (02/01/2019 2:01 PM EST): Patient warned to hold benzodiazepine and Ambien while taking the Hycodan cough syrup. Due to interactions. Her anxiety appears not to be heightened from what we could gather. Psychophysiological insomnia 05/12/2017 07/10/2023 Carpal tunnel syndrome of right wrist 05/12/2017 07/10/2023 Lateral epicondylitis of right elbow 07/10/2023 Encounters Date Type Department Care Team Description 10/14/2024 Orders Only [facility] [address] [place] [address] Provider, MD Dee 10/09/2024 Refill [facility] [address] [place] [address] Kayla Luke CNP Medication Refill 09/25/2024 Refill [facility] [address] [place] [address] Chandan Koenig PA-C Medication Refill 09/23/2024 Refill [facility] [address] [place] [address] Chandan Koenig PA-C 09/04/2024 Refill [facility] [address] [place] [address] Chandan Koenig PA-C Medication Refill 09/04/2024 Refill [facility] [address] [place] [address] Wenceslao Chauhan MD Medication Refill 08/20/2024 Refill [facility] [address] [place] [address] Chandan Koenig PA-C Medication Refill 08/05/2024 Refill [facility] [address] [place] [address] Chandan Koenig PA-C Medication Refill 08/01/2024 Refill [facility] [address] [place] [address] Chandan Koenig PA-C Medication Refill 07/17/2024 Orders Only [facility] [address] [facility] [place] [address] ProviderDee MD 07/15/2024 1:20 PM EDT Telemedicine [facility] [address] [facility] [place] [address] Chandan oKenig PA-C Anxiety and depression (Primary Dx); Chronic radiation cystitis 07/15/2024 Telephone [facility] [address] [facility] [place] [address] Chandan Koenig PA-C Medication Refill 07/15/2024 Telephone [facility] [address] [place] [address] Chandan Koenig PA-C Appointment from Last 3 Months Immunizations Immunization Administration Dates Next Due COVID-19 (Pre-11/28) Pfizer Vaccine, mRNA, PF ,03/19/2020 Td (adult) 5 Lf Tetanus Toxoid, PF, Adsorbed 04/2023 Tdap 03/03/2013 Family History Medical History Relation Comments Colon polyps Brother 1 Liver disease Father CV disease Mother valve replacemen t Hypotension Mother Ovarian cancer Mother Stroke Mother Thyroid disease Mother Breast cancer Neg Hx Relation Status Comments Brother 1 Alive Brother 2 Father Mother Alive Sister 1 Alive Sister 2 Alive Social History Tobacco Use Types Packs/Day Years Used Date Smoking Tobacco: Former Cigarettes 0.3 25.9 0 09/24/1998 - 03/2024 Smokeless Tobacco: Never Tobacco Cessation:Counseling Given: Not Answered Comments:1-2 cigarettes daily, 1 pack/week Alcohol Use Standard Drinks/Week Comments [...] Industry Job Start Date Job End Date [employer] Not on file Not on file Not on file Last Filed Vital Signs Vital Sign Reading Time Taken Comments Blood Pressure 130/82 07/09/2024 2:38 PM EDT Pulse 85 07/09/2024 2:38 PM EDT Temperature 36.3 C (97.4 F) 07/09/2024 2:38 PM EDT Respiratory Rate 18 07/09/2024 2:38 PM EDT Oxygen Saturation 98% 07/09/2024 2:38 PM EDT Inhaled Oxygen Concentration - - Weight 50.1 kg (110 lb 6.4 oz) 07/09/2024 2:38 P M EDT Height 160 cm (5' 2.99 ) 07/09/2024 2:38 PM EDT Body Mass Index 19.56 07/09/2024 2:38 PM EDT Plan of Treatment Upcoming Encounters Date Type Department Care Team (Late st Contact Info) Description 10/30/2024 9:00 AM EDT Office Visit [facility] [address] [place] [address] Chandan Koenig PA-C [address] [place] [address] [email or web address] Maintenance Due Date Last Done Comments PNEUMOCOCCAL VACCINES (50+ years) (1 of 2 - PCV) 1992 ZOSTER VACCINES (1 of 2) 1992 COLOGUARD 2018 FIT TEST 2018 FOBT 2018 SIGMOIDOSCOPY 2018 VIRTUAL COLONOSCOPY 2018 REPEAT PHQ 08/08/2024 07/09/2024, 07/09/2024 INFLUENZA VACCINE (#1) 2024 PAP SMEAR 09/21/2024 09/22/2023, 03/09, 03/19/2019, Additional history exists COVID-19 VACCINE ( season) 2024 04/09/2020, 03/19/2020 DEPRESSION SCREENING 07/09/2025 07/09/2024, 07/10/19 25 MAMMOGRAM 07/09/2025 07/10/2023, 01/06, 06/06/2016, Additional history exists SMOKING Hx and SMOKELESS TOBACCO SCREENING 07/09/2025 07/09/2024 LIPID PANEL 07/30/2028 07/31/2023, 07/08, 07/31/2023, Additional history exists COLONOSCOPY 03/19/2031 03/19/2021, 09/11/2020 COLORECTAL CANCER SCREENING 03/19/2031 Adult Td,Tdap Booster 07/09/2033 07/10/2023, 014 HEPATITIS C SCREENING Completed 07/31/2023 HIV ONE-TIME SCREENING (18-65 YEARS) Completed 07/31/2023 HEPATITIS A VACCINES Aged Out No long er eligible based on patient's age to complete this topic HIB VACCINES Aged Out No longer eligi ble based on patient's age to complete this topic MENINGOCOCCAL VACCINES (ACWY) Aged Out No longer eligible based on patient's age to complete this topic MENINGOCOCCAL VACCINES (B) Aged Out N o longer eligible based on patient's age to complete this topic Medical Devices Not on file Procedures Procedure Name Priority Date/Time Associated Diagnosis Comments OUTSIDE XR CHEST REPORT ONLY Routine 10/14/2024 2:46 PM EDT PAP SMEAR FOR RESULT ENTRY ONLY Routine 09/22/2023 OUTSIDE HDL Routine 07/31/2023 OUTSIDE HIV Routine 07/31/2023 OUTSIDE HEPATITIS C VIRUS SCREENING Routine 07/31/2023 BI MAMMOGRAM SCREENING (BILATERAL) Routine 07/10/2023 2:27 PM EDT Healthcare maintenance COLONOSCOPY FOR RESULT ENTRY ONLY Routine 03/19/2021 from Last 3 Months or Most Recently Relevant to Health Maintenance Results * Outside XR??Chest Report Only (10/14/2024 2:46 PM EDT) Historical Provider IMG XR CHEST Final Res ult * HM PAP SMEAR FOR RESULT ENTRY ONLY (09/22/2023) HM Pap smear NILM Historical Provider HEALTH MAINTENANCE Final Result * Outside Hepatitis C Virus Screening (07/31/2023) Hepatitis C Screening - External Neg us Historical Provider LAB BLOOD ORDERABLES Josephine l Result * OUTSIDE HIV TEST (07/31/2023) HIV - External Neg Historical Provider LAB BLOOD ORDERABLES Josephine l Result * Outside HDL (07/31/2023) HDL - External 77 40 - 80 mg/dL Result [facility] Provider LAB BLOOD ORDERABLES Josephine l Result * HM COLONOSCOPY FOR RESULT ENTRY ONLY (03/19/2021) Historical Provider HEALTH MAINTENANCE Edited Result - Final * BI MAMMOGRAM SCREENING WITH TOMOSYNTHESIS WITH CAD (BILATERAL) (01/15/2021 3:46 PM EST) Anatomical Region Laterality Modality Breast Left, Breast Right, Breast Bilateral Bila teral Mammography 01/18/2021 8:06 AM EST Impressions 01/18/2021 8:13 AM EST No mammographic signs of malignancy. Annual screening is recommended. BI-RADS CATEGORY: 2 - Benign finding. DENSITY: The breast tissue is heterogeneously dense, which could obscure a lesion on mammography. Narrative 01/18/2021 8:13 AM EST Bilateral mammography is performed in conjunction with computed aided detection. 3-D tomography along with 2-D C view imaging was also performed. Comparison made to previous dated as far back as 12/05/2014 and as recent as 06/06/2016. No suspicious masses, areas of architectural distortion or suspicious microcalcifications. Stable skin calcifications. Procedure Note Mina Foote MD - 01/18/2021 Bilateral mammography is performed in conjunction with computed aideddetection. 3-D tomography along with 2-D C view imaging was alsoperformed. Comparison made to previous dated as far back as 12/05/2014 andas recent as 06/06/2016. No suspicious masses, areas of architectural distortion or suspiciousmicrocalcifications. Stable skin calcifications. IMPRESSION: No mammographic signs of malignancy. Annual screening is recommended. BI-RADS CATEGORY: 2 - Benign finding. DENSITY: The breast tissue is heterogeneously dense, which could obscurea lesion on mammography. Rosa Rice FINISH SPECIALIST IMG MG EXAMS Final Result from Last 3 Months or Most Recently Relevant to Health Maintenance Insurance [place] & B Care Teams Vamp Creaser Relationship Specialty Start Date End Date Chandan Koenig PA-C [address] [place] [phone] [email or web address] PCP - General Physician Sheet Metal Layout Mechanic 07/11/23 Roxie Brewer MD [address] [place] [address] [email or web address] Obstetrics and Gynecology 05/07/21 Cira Duncan DO [address] [place] [phone] Physical Medicine and Rehabilitation 08/23/22 Edmundo Burnham MD [address] [place] [address] [email or web address] Insurance Assigned Provider Internal Medicine 07/11/23 Juan Carlos Mejia MD [address] [place] [phone] Gastroenterology 03/05/24 Additional Source Comments The information contained in this document represents components of the legal health record. It is not the complete legal health record.[facility]
--- OUTSIDE RECORDS SUMMARY | 2024-10-14 18:54 | XMS_ITS | Encounter Summary ---
Author Organization [facility] Address [address] [place] [address] Phone Care Team Providers Care Compressor Station Operator Name Role Phone Roxie Brewer MD Unavailable [phone] Jen Ruano MD Unavailable [phone] Cira Duncan DO Unavailable [phone] Wenceslao Chauhan MD Primary Care Provider [phone] Breana Ruano HEEL FINISHER Primary Care Provider [phone] Chandan Koenig-C Primary Care Provider [phone] Chandan Koenig-C Primary Care Provider [phone] Chandan Koenig-C Primary Care Provider [phone] Edmundo Burnham MD Unavailable [phone] Juan Carlos Mejia MD Unavailable [phone] Encounter Details Date Type Department Care Team (Late st Contact Info) Description 01/18/2021 Ancillary Orders [facility],Outside Imaging [address] [place] [address] System, Provider Not In, PhD Partners [address] [address] Social History Tobacco Use Types Packs/Day Years [...] high school, GED, job training, learning the Kosovan language, technical skills, or developing parenting skills)? 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 us Provider Not In System PhD IMG OUTSIDE IMAGING W /OUT INTERPRETATION Final Result documented in this encounter Visit Diagnoses Not on filedocumented in this encounter Additional Health Concerns Assessment Noted Time PHQ-2 Depression Total Score: 2 01/15/20 21 1:43 PM EST documented as of this encounter Care Teams Compressor Station Operator Relationship Specialty Start Date End Date Wenceslao Chauhan MD [address] [place] [address] [email or web address] PCP - General 05/02/23 06/12/23 Breana Ruano FNP [address] [address] [email or web address] PCP - General Nurse Practitioner 06/13/23 06/21/23 Chandan Koenig PA-C [address] [place] [address] [email or web address] PCP - General Physician Tool Repairer Bench 06/22/23 06/26/23 Chandan Koenig PA-C [address] [place] [address] PCP - General Physician Tool Repairer Bench 07/07/23 07/10/23 Chandan Koenig PA-C [address] [place] [address] [email or web address] PCP - General Physician Tool Repairer Bench 07/11/23 Roxie Brewer MD [address] [place] [email or web address] Obstetrics and Gynecology 05/07/21 Jen Ruano MD [address] [place] [phone] Insurance Assigned Provider Internal Medicine 08/01/22 06/12/23 Cira Duncan DO [address] [place] [phone] Physical Medicine and Rehabilitation 08/23/22 Edmundo Burnham MD [address] [place] [phone] Insurance Assigned Provider Internal Medicine 07/11/23 Juan Carlos Mejia MD [address] [place] [phone] Gastroenterology 03/05/24 documented as of this encounter Additional Source Comments The information contained in this document represents components of the legal health record. It is not the complete legal health record.[facility]
--- OUTSIDE RECORDS SUMMARY | 2024-10-14 18:54 | XMS_ITS | Encounter Summary ---
Author Organization [facility] Address [address] [place] [phone] Phone Care Team Providers Care Speech Communication Instructor Name Role Phone Citlali Aranda MD Unavailable Edmundo Burnham MD Unavailable Henry Pagan DO Unavailable Angelina Padilla MACHINE SHOP LEAD MAN Unavailable Luna Escamilla PA-C Unavailable Rosa Rice MACHINE SHOP LEAD MAN Unavailable [phone] Jorge Orellana MD Unavailable Susan Robertson MD Unavailable Roxie Brewer MD Unavailable Jen Ruano MD Unavailable Cira Duncan DO Unavailable [phone] Wenceslao Chauhan MD Primary Care Provider [phone] Breana Ruano SHEEP KILLER Primary Care Provider [phone] Chandan KoenigC Primary Care Provider [phone] Chandan KoenigC Primary Care Provider [phone] Chandan Koenig PA-C Primary Care Provider Edmundo Burnham MD Unavailable [phone] Juan Carlos Mejia MD Unavailable Encounter Details Date Type Department Care Team (Latest Contact Info) Description 03/29/2018 Transcribe Orders [facility] Specimen Processing [address] [place] [address] Edmundo Burnham MD [address] [place] [address] [email or web address] Extrinsic asthma with acute exacerbation, unspecified asthma severity, unspecified whether persistent (Primary Dx) Social History Tobacco Use Types Packs/Day Years Used Date Smoking Tobacco: Every Day Cigarettes Smokeless Tobacco: Never Comments:4-5 cigarettes yuliet y Alcohol Use Standard Drinks/Week Comments Yes 0 (1 standard drink = 0.6 oz pur e alcohol) 2 x month Comments Unknown Sex and Gender Information Value Date Recorded Sex Assigned at Female 02/10/2020 2:29 PM EST Legal Sex Female 9:30 PM EDT Gender Identity Female 02/10/2020 2:29 PM EST Sexual Orientation Straight 02/10/2020 2: 29 PM EST documented as of this encounter Plan of Treatment Upcoming Encounters Date Type Department Care Team (Late st Contact Info) Description 10/30/2024 9:00 AM EDT Office Visit [facility] Internal Medicine [address] [place] [address] Chandan Koenig PA-C [address] [place] [address] documented as of this encounter Procedures Procedure Name Priority Date/Time Associated Diagnosis Comments RAPID INFLUENZA A AND B Routine 03/29/2018 7:44 PM EST Extrinsic asthma with acute exacerbation, unspecified asthma severity, unspecified whether persistent documented in this encounter Results * Rapid influenza A and B (03/29/2018 7:44 PM EST) Influenza A Ag Negative Negative [facility] Influenza B Ag Negative Negative [facility] Other (Nasal) 03/29/2018 7:4 4 PM EST 03/29/2018 7:46 PM EST Edmundo Burnham MD MICROBIOLOGY - GENERAL ORDERA BLES Final Result [facility] [address] [place] [address] documented in this encounter Visit Diagnoses Diagnosis Extrinsic asthma with acute exacerbation, unspecified asthma severity, unspecified whether persistent- Primary documented in this encounter Additional Health Concerns Infection Onset Date Last Indicated Resolved Time CoV-Exposed Comment:Recent close contact 11/26/2019 11/26/2019 12/10/2019 1:24 AM EST CoV-Risk 02/06/2020 02/09/2020 02/19/2020 1:25 AM EST CoV-Risk 12/14/2020 12/15/2020 12/25/2020 1:24 AM EST CoV-Exposed Comment:Recent close contact documented in the COVID-19 PCR/PRO order 12/14/2020 12/14/2020 12/29/2020 1:[address] Assessment Noted Time PHQ-2 Depression Total Score: 0 05/13/19 18 11:43 AM EDT documented as of this encounter Care Teams Speech Communication Instructor Relationship Specialty Start Date End Date Wenceslao Chauhan MD [address] [place] [address] [email or web address] PCP - General 05/02/23 06/12/23 Breana Ruano FNP [address] [address] [email or web address] PCP - General Nurse Practitioner 06/13/23 06/21/23 Chandan Koenig PA-C [address] [place] [address] PCP - General Physician Mold Shop Supervisor 06/22/23 06/26/23 Chandan Koenig PA-C [address] [place] [address] PCP - General Physician Mold Shop Supervisor 07/07/23 07/10/23 Chandan Koenig PA-C [address] [place] [address] PCP - General Physician Mold Shop Supervisor 07/11/23 Citlali Aranda MD [address] [place] [address] Historical LMR Provider 11/21/16 01/31/19 Edmudno Burnham MD [address] [place] [address] Historical LMR Provider 11/21/16 01/31/19 Henry Pagan DO [address] [place] [address] Orthopedics [facility] Medicine, [place] [address] [email or web address] Historical LMR Provider 11/21/16 01/31/19 Angelina Padilla NP [address] [place] [address] Historical LMR Provider 11/21/16 01/31/19 Luna Escamilla PA-C [address] [place] [address] Orthopedics & Sports Medicine, [facility] [place] [address] Historical LMR Provider 11/21/16 01/31/19 Rosa Rice NP [address] [place] [address] [address] [place] [address] Historical LMR Provider 11/21/16 01/31/19 Jorge Orellana MD [address] [place] [phone] Historical LMR Provider 11/21/16 01/31/19 Susan Robertson MD [address] [place] [address] [facility] [place] [address] Historical LMR Provider 11/21/16 01/31/19 Roxie Brewer MD [address] [place] [address] Obstetrics and Gynecology 05/07/21 Jen Ruano MD [address] [place] [phone] Insurance Assigned Provider Internal Medicine 08/01/22 06/12/23 Cira Duncan DO [address] [place] [phone] Physical Medicine and Rehabilitation 08/23/22 Edmundo Burnham MD [address] [place] [address] [email or web address] Insurance Assigned Provider Internal Medicine 07/11/23 Juan Carlos Mejia MD [address] [place] [address] [address]quelyn [address] [place] [place] [phone] Gastroenterology 03/05/24 documented as of this encounter Additional Source Comments The information contained in this document represents components of the legal health record. It is not the complete legal health record.[facility]
--- OUTSIDE RECORDS SUMMARY | 2024-10-14 18:54 | XMS_ITS | Encounter Summary ---
Author Organization [facility] Address [address] [place] [phone] Phone Care Team Providers Care Industrial Sweeper Cleaner Name Role Phone Roxie Brewer MD Unavailable [phone] Jen Ruano MD Unavailable [phone] Cira Duncan DO Unavailable [phone] Wenceslao Chauhan MD Primary Care Provider [phone] Breana Ruano COMMUNICATIONS PROJECT LEAD Primary Care Provider Chandan Koenig-C Primary Care Provider [phone] Chandan Koenig-C Primary Care Provider [phone] Chandan Koenig-C Primary Care Provider [phone] Edmundo Burnham MD Unavailable [phone] Juan Carlos Mejia MD Unavailable Encounter Details Date Type Department Care Team (Late st Contact Info) Description 05/05/2020 Procedure [facility], [address] [address] Social History Tobacco Use Types Packs/Day Years [...] high school, GED, job training, learning the Ukrainian language, technical skills, or developing parenting skills)? 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 documented as of this encounter Visit Diagnoses [...] documented as of this encounter Care Teams Industrial Sweeper Cleaner Relationship Specialty Start Date End Date Wenceslao Chauhan MD [address] [place] [address] PCP - General 05/02/23 06/12/23 Breana Ruano FNP [address] [address] [email or web address] PCP - General Nurse Practitioner 06/13/23 06/21/23 Chandan Koenig PA-C [address] [place] [address] PCP - General Physician Paper Mill Supervisor 06/22/23 06/26/23 Chandan Koenig PA-C [address] [place] [address] PCP - General Physician Paper Mill Supervisor 07/07/23 07/10/23 Chandan Koenig PA-C [address] [place] [address] PCP - General Physician Paper Mill Supervisor 07/11/23 Roxie Brewer MD [address] [place] [address] [address] [place] [address] Obstetrics and Gynecology 05/07/21 Jen Ruano MD [address] [place] [phone] Insurance Assigned Provider Internal Medicine 08/01/22 06/12/23 Cira Duncan DO [address] [place] [phone] Physical Medicine and Rehabilitation 08/23/22 Edmundo Burnham MD [address] [place] [phone] Insurance Assigned Provider Internal Medicine 07/11/23 Juan Carlos Mejia MD [address] [place] [phone] Gastroenterology 03/05/24 documented as of this encounter Additional Source Comments The information contained in this document represents components of the legal health record. It is not the complete legal health record.[facility]
== END 2024-10-14 18:02 | disposition home or self-care (01) ==
PROVIDERS: Physician Assistant Medical; Emergency Provider Student in an Organized Health Care Education/Training Program; PCP Physician Assistant Surgical
DX: J18.9 Pneumonia, unspecified organism (principal); R05.9 Cough, unspecified; R06.02 Shortness of breath; Z79.899 Other long term (current) drug therapy; Z03.818 Encounter for observation for suspected exposure to other biological agents ruled out
CPT/HCPCS: 71046; 80053; 83735; 85025; 87502; 87635; 99282; 99283

== ENCOUNTER → 2024-10-14 13:46 | Outpatient (BNV) | payer MEDICARE, MEDICAID, SELFPAY | PROVIDERS: PCP Physician Assistant Surgical; Visit Provider Radiology Diagnostic Radiology | DX: R05.9 Cough, unspecified (principal); R06.02 Shortness of breath | CPT/HCPCS: 71046 ==